=== PATIENT | female | born 1950 | race Caucasian/White ===

== ENCOUNTER 2023-09-21 14:43 | Emergency (ER) | payer MEDICARE, SELFPAY ==
[2023-09-21 14:54] VITALS: BP 183/100; PULSE 98; RESP 18; TEMP 37.1; O2SAT 96; BMI 32.2
[2023-09-21 15:37] LABS: Adenovirus NOT DETECTED (NOT DETECTE); Bordetella parapertussis NOT DETECTED (NOT DETECTE); Coronavirus 229E NOT DETECTED (NOT DETECTE); Coronavirus HKU1 NOT DETECTED (NOT DETECTE); Coronavirus NL63 NOT DETECTED (NOT DETECTE); Coronavirus OC43 NOT DETECTED (NOT DETECTE); Human Metapneumovirus NOT DETECTED (NOT DETECTE); Human Rhinovirus/Enterovirus NOT DETECTED (NOT DETECTE); Influenza A NOT DETECTED (NOT DETECTE); Influenza B NOT DETECTED (NOT DETECTE); Mycoplasma pneumoniae NOT DETECTED (NOT DETECTE); Parainfluenza Virus 1 NOT DETECTED (NOT DETECTE); Parainfluenza Virus 2 NOT DETECTED (NOT DETECTE); Parainfluenza Virus 3 NOT DETECTED (NOT DETECTE); Parainfluenza Virus 4 NOT DETECTED (NOT DETECTE); Respiratory Syncytial Virus NOT DETECTED (NOT DETECTE); SARS-CoV-2 NOT DETECTED (NOT DETECTE)
[2023-09-21 17:51] VITALS: PULSE 109; RESP 18; O2SAT 97
--- NOTE | 2023-09-21 18:08 | ED_ITS ---
HPI - URI/Sore Throat General Chief Complaint: Upper Respiratory Infection Stated Complaint: COUGH Source: patient History of Present Illness HPI Narrative: patient is a 73-year-old female presents to the Emergency Room with concerns of cough and congestion. Patient states she was seen at [facility] yesterday, chest x-ray repoort 09/20/23 shows no acute coronary pulmonary process. patient states she has had a similar productive cough for the past two weeks, symptoms worsening in the past week. She denies feeling short of breath, but states her ears feel full in her nose keeps running in her throat feels irritated. Patient denies recent fever. She appears in no distress and denies chest pain or dyspnea on exertion. Patient took Tylenol arthritis at 8:30 AM this morning but no medication this afternoon. Patient states she is ALLERGIC to honey and penicillins MD elicited complaint: Reports cough, rhinorrhea and nasal congestion Severity: mild Description of mucous: Reports clear and yellow Exacerbating factors: Reports nothing Relieving factors: Reports OTC cold medicine Associated symptoms: Reports rhinorrhea, nasal congestion and sore throat Treatments prior to arrival: Reports acetaminophen Related Data Previous Rx's Medication Instructions Recorded benzonatate 200 mg capsule 200 mg PO TID PRN cough #15 caps 09/21/23 doxycycline hyclate 100 mg capsule 100 mg PO BID 10 days #20 caps 09/21/23 Allergies Allergy/AdvReac Type Severity Reaction Status Date / Time honey Allergy Severe Verified 09/21/23 15:02 Penicillins Allergy Severe Verified 09/21/23 15:02 Review of Systems ROS Constitutional Denies: fever or chills Ears, nose, mouth, and throat Reports: throat pain, ear pain (fullness) and nasal congestion; Denies: throat swelling Cardiovascular Denies: chest pain Respiratory Reports: cough; Denies: shortness of breath Gastrointestinal Denies: abdominal pain or vomiting Genitourinary Denies: painful urination Integumentary/Breast Denies: rash Neurological Denies: headache Psychiatric Denies: anxiety Exam Narrative Exam Narrative: Nurses notes and vital signs reviewed and patient is not hypoxic. General: The patient appears well and in no apparent distress. Patient is resting comfortably on cart. Skin: Warm, dry, no pallor noted. Head: Normocephalic, atraumatic, no frontal or maxillary sinus tenderness Neck: Supple, trachea mid-line, no tenderness, no lymphadenopathy Eye: Pupils are equal, round and reactive to light, EOMI Ears, Nose, Mouth, and Throat: TM are clear, normal light reflex, positive pos tnasal drainage noted, oral mucosa is moist, no posterior oropharynx erythema or hypertrophy, uvula is mid-line, mild rhinorrhea Cardiovascular: Regular Rate and Rhythm Respiratory: Patient is in no distress, no accessory muscle use, lungs are clear to auscultation,slight expiratory wheeze, clears with cough. Chest Wall: no tenderness Back: non-tender, no CVA tenderness Musculoskeletal: normal ROM, no tenderness, no swelling Neurological: A&O x4 Psychiatric: Cooperative Constitutional Vital Signs, click to edit/add: Last Vital Signs Temp 98.7 F 09/21/23 14:54 Pulse 109 H 09/21/23 17:51 Resp 18 09/21/23 17:51 BP 183/100 H 09/21/23 14:54 Pulse Ox 97 09/21/23 17:51 O2 Del Method Room Air 09/21/23 14:54 Course Vital Signs Vital signs: Vital Signs Temperature 98.7 F 09/21/23 14:54 Pulse Rate 98 H 09/21/23 14:54 Respiratory Rate 18 09/21/23 14:54 Blood Pressure 183/100 H 09/21/23 14:54 Pulse Oximetry 96 09/21/23 14:54 Oxygen Delivery Method Room Air 09/21/23 14:54 Temperature 98.7 F 09/21/23 14:54 Pulse Rate 109 H 09/21/23 17:51 Respiratory Rate 18 09/21/23 17:51 Blood Pressure 183/100 H 09/21/23 14:54 Pulse Oximetry 97 09/21/23 17:51 Oxygen Delivery Method Room Air 09/21/23 14:54 MDM - URI/Sore Throat MDM Narrative Medical decision making narrative: discussed patient's presentation, respiratory panel here negative, cardiac chest x-ray 09/20/23 negative for infiltrate. We discussed slight expiratory wheeze that clears easily with cough and her upper respiratory symptoms for the past two weeks with progression over the past week. Discussed clinical indications for antibiotics given length of illness with symptoms not improving, we discussed removing any irritants. Patient encouraged to take an [id number] ALLERGY pill and Tylenol to help with symptoms. She is given her 1st dose of medication here. Patient had questions answered at the bedside and we discussed symptomatic treatment in addition to the antibiotic given her length of sympto ms. The patient is to followup with primary care physician in next 2-3 days or to return to the emergency department should any of the signs or symptoms worsen or new symptoms develop. Patient had questions answered. The patient agrees with the following Diagnosis and Treatment plan and the patient will be discharged home. Lab Data Labs: Lab Results 09/21/23 Range/Units 15:03 Adenovirus (PCR) Not detected (NOT DETECTE) C. pneumoniae DNA (PCR) Not detected (NOT DETECTE) Coronavirus Type OC43 Not detected (NOT DETECTE) Coronavirus Type HKU1 Not detected (NOT DETECTE) Coronavirus Type 229E Not detected (NOT DETECTE) Coronavirus Type NL63 Not detected (NOT DETECTE) Human Metapneumovir PCR Not detected (NOT DETECTE) M. pneumoniae (PCR) Not detected (NOT DETECTE) Parainfluenza PCR Not detected (NOT DETECTE) Parainfluenza 2 (PCR) Not detected (NOT DETECTE) Parainfluenza 3 (PCR) Not detected (NOT DETECTE) Parainfluenza 4 (PCR) Not detected (NOT DETECTE) RSV (RT-PCR) Not detected (NOT DETECTE) Entero/Rhino (PCR) Not detected (NOT DETECTE) SARS-CoV-2 (PCR) Not detected (NOT DETECTE) Bordetella pertussis (PCR) Not detected (NOT DETECTE) B parapertussis DNA PCR Not detected (NOT DETECTE) Influenza Type A (PCR) Not detected (NOT DETECTE) Influenza Type B (PCR) Not detected (NOT DETECTE) Discharge Plan Discharge Chief Complaint: Upper Respiratory Infection Clinical Impression: Upper respiratory infection, Bronchitis Patient Disposition: Home, Self-Care Time of Disposition Decision: 18:09 Condition: Good Prescriptions / Home Meds: New benzonatate 200 mg capsule 200 mg PO TID PRN (Reason: cough) Qty: 15 0RF doxycycline hyclate 100 mg capsule 100 mg PO BID 10 Days Qty: 20 0RF Instructions: Acute Bronchitis (ED) Referrals: Gloria Omalley [Primary Care Provider] - 1 week Discharge Date/Time: 09/21/23 17:31
[2023-09-21] MEDS: ACETAMINOPHEN 500 MG TABLET 1000 MG PO (18:27)
[2023-09-21] MEDS: DOXYCYCLINE MONOHYDRATE 100 MG CAPSULE PO (18:27)
== END 2023-09-21 18:36 | disposition home or self-care (01) ==
PROVIDERS: Emergency Provider Emergency Medicine; PCP Family Medicine
DX: J06.9 Acute upper respiratory infection, unspecified (principal); J40 Bronchitis, not specified as acute or chronic; Z20.822 Contact with and (suspected) exposure to COVID-19
CPT/HCPCS: 0202U; 99283

== ENCOUNTER 2023-10-31 11:40 | Emergency (ER) | payer MEDICARE, SELFPAY ==
--- OUTSIDE RECORDS SUMMARY | 2023-10-31 11:46 | XMS_ITS | CCD ---
Author Name Unknown Address [address] [place] [address] Organization [facility] Care Team Providers Care Fire Safety Manager Name Role Phone PHYSICIAN, DEFAULT Unavailable Unavailable PHYSICIAN, DEFAULT Unavailable Unavailable QUTEISH, VEEDA O Unavailable Unavailable JUAN CASEY Admitting UnavailJUAN Herrmann Attending Unavailabl e Suzie Kim Primary Care Unavailable Juan, Ceceilia Consulting Unavailable Juan, Ceceilia Consulting Unavailable Juan, Ceceilia Consulting Unavailable FARIDA GREENE Consulting Unavailable KUMARAMANDA WOODS Consulting Unavailabl e BV, Physician - Emergency Consulting Briseida Boateng Consulting Unavailable Drew Soriano Consulting Unavailable JUAN CASEY Attending Unavailabl Suzie Terry Primary Care Unavailable SUZIE KIM Consulting Unavailable JUAN CASEY Admitting UnavailJUAN Herrmann Attending Unavailabl e Suzie Kim Primary Care Unavailable KOKI MARQUEZ Consulting Unavailable BV, Physician - Emergency Consulting Briseida Boateng Consulting Unavailable Koki Marquez Consulting Unavailable Drew Soriano Consulting Unavailable JUAN CASEY Attending Unavailabl e Suzie Kim Primary Care Unavailable SUZIE KIM Consulting Unavailable Jeni Antonio Primary Care Provider NON, STAFF, Primary Care Provider UnavailKrishan Stacy Attending Provider [phone] Unavailable Primary Care Provider Unavailabl e Gloria Taylor DO Primary Care Provider Krishan Madrid Unavailable MAGEN, DR MOSS Primary Care Unavailable DICKSON, DR GARZA Admitting Unavailable DR KAYLA FORMAN Attending Unavailable MISC, DR MOSS Primary Care Unavailable TIMMIS, DR GARZA Admitting Unavailable TIMMIS, DR GARZA Attending Unavailable TIMMIS, DR GARZA Consulting Unavailable MISC, DR MOSS Primary Care Unavailable TIMMIS, DR GARZA Admitting Unavailable TIMMIS, DR GARZA Attending Unavailable HAY ., DR PERES Attending Unavailable RUMSCHLAG, GLORIA Primary Care Unavailable GRECHNY ., JUSTIN NIÑO Consulting Unavailbryson WORRELL ., DR PERES Admitting Unavailable PENDLETON, SUSAN Consulting Unavailable HANNAH SOLER Referring Unavailable RUMSCHLAG, GLORIA Primary Care Unavailable TIMMIS, KAYLA H Attending Unavailable OBRYCKI, BRUCE S Attending Unavailable OBRYCKI, BRUCE S Referring Unavailable RUMSCHLAG, GLORIA K Primary Care Unavailable RUMSCHLAG, GLORIA K Primary Care Unavailable CUMMINGS, HERMILO A Attending Unavailable RUMSCHLAG, GLORIA K Primary Care Unavailable KARCHNERJENI Attending Unavailable KARCHNERJENI Referring Unavailable RUMSCHLAG, GLORIA K Primary Care Unavailable CUMMINGS, HERMILO A Attending Unavailable CUMMINGS, HERMILO A Referring Unavailable RUMSCHLAG, GLORIA K Primary Care Unavailable RUMSCHLAG, GLORIA K Primary Care Unavailable OBRYCKI, BRUCE S Attending Unavailable Unavailable Unavailable Unavailable Allergies Allergy Classification Reported Allergen(s) Allergy Type Date of Onset Reaction(s) Facility Penicillins (antibiotic) (1 source) Penicillins Drug Allergy 3 Hives, Nausea And Vomiting [facility] (4 sources) Honey; Translations: [Unknown] Drug allergy (disorder) 0 [facility] (5 sources) Penicillins; Translations: [penicillins] Drug allergy (disorder) 9 Hives, Nausea And Vomiting [facility] (3 sources) Honey Propensity to adverse reactions to drug 3 [place], [place] (1 source) Penicillins Propensity to adverse reactions to drug 3 Hives, Nausea And Vomiting [place], [place] (1 source) Penicillin Drug Allergy Unknown [place] Other (1 source) PERFLUTREN LIPID MICROSPHERES; Translations: [PERFLUTREN LIPID MICROSPHERES] Propensity to adverse reactions to drug (disorder) [facility] Repository Medications Current Medications Medication Drug Class(es) Dates Sig (Normalized) Sig (Original) acetaminophen 500 mg oral tablet (3 sources) take 2 tablets by mouth every six hours as needed for pain acetaminophen (TYLENOL) 500 MG tablet Take 1,000 mg by mouth every 6 hours as needed for Pain. 0 Active aspirin 81 mg oral tablet (3 sources) Platelet Aggregation Inhibitor, Nonsteroidal Anti-inflammatory Drug take 1 tablet by mouth two times weekly aspirin 81 MG tablet Take 81 mg by mouth twice a week 0 Active calcium chloride 0.0014 meq/ml / potassium chloride 0.004 meq/ml / sodium chloride 0.103 meq/ml / sodium lactate 0.028 meq/ml injectable solution (1 source) Start: 04-03-2021 lactated ringers infusion calcium citrate 1500 mg / cholecalciferol 250 unt oral tablet (3 sources) Vitamin D calcium citrate-vitamin D (CITRICAL + D) 315-250 MG-UNIT TABS Take by mouth 0 Active carvedilol 25 mg oral tablet (1 source) alpha-Adrenergic Mook, beta-Adrenergic Mook Start: 03-15-2021 take 1 tablet by mouth twice daily carvedilol (COREG) 25 MG tablet TAKE 1 TABLET BY MOUTH TWICE DAILY 0 03/15/2021 Active ciprofloxacin 500 mg oral tablet (1 source) Quinolone Antimicrobial Start: 04-14-2022 take 1 tablet by mouth twice daily ciprofloxacin (CIPRO) 500 MG tablet TAKE 1 TABLET BY MOUTH TWICE DAILY FOR 7 DAYS 0 04/14/2022 Active dulaglutide (2 sources) GLP-1 Receptor Agonist Dulaglutide (TRULICITY SC) Inject into the skin 0 Active Dulaglutide ([place] LICITY SC) Inject into the skin 0 Suspended esomeprazole 20 mg granules for oral suspension (3 sources) Proton Pump Inhibitor take 20 mg by mouth once daily as needed esomeprazole Magnesium (NEXIUM) 20 MG PACK Take 20 mg by mouth daily as needed 0 Active glyBURIDE 5 mg oral tablet (2 sources) Sulfonylurea Start: glyBURIDE (DIABETA) 5 MG tablet hydrocortisone 10 mg/ml topical cream (1 source) Corticosteroid Start: hydrocortisone 1 % cream Apply to affected area 2 times daily 0 05/19/2021 Active ibuprofen 800 mg oral tablet (3 sources) Nonsteroidal Anti-inflammatory Drug take 1 tablet by mouth every eight hours as needed for pain ibuprofen (ADVIL;MOTRIN) 800 MG tablet Take 800 mg by mouth every 8 hours as needed for Pain 0 Active lisinopril 40 mg oral tablet (4 sources) Angiotensin Converting Enzyme Inhibitor take 1 tablet by mouth every twenty-four hours Lisinopril 40 MG 1 tablet Orally Once a day Active take 2 tablets by mouth once wyatt [address] lisinopril (PRINIVIL;ZESTRIL) 20 MG tablet Take 40 mg by mouth daily 0 Active metFORMIN hydrochloride 500 mg oral tablet (4 sources) Biguanide take 1 tablet by mouth every twelve hours metFORMIN HCl 500 MG 1 tablet with meals Orally Twice a day Active mupirocin 20 mg/ml topical cream (1 source) RNA Synthetase Inhibitor Antibacterial Start: mupirocin (BACTROBAN) 2 % cream Apply topically 3 times daily 0 08/09/2021 Active 3 ml sodium chloride 9 mg/ml injection (2 sources) Start: sodium chloride flush 0.9 % injection 5-40 mL sucralfate 100 mg/ml oral suspension (2 sources) Aluminum Complex Start: take 1 tablet by mouth four times daily sucralfate (CARAFATE) 1 GM/10ML suspension Take 10 mLs by mouth 4 times daily Substitute 1 g Carafate tablets and instruct patient how to create slurry at home, if financially advantageous to patient. 420 mL 1 04/03/2021 Active sulfamethoxazole 800 mg / trimethoprim 160 mg oral tablet (1 source) Dihydrofolate Reductase Inhibitor Antibacterial, Sulfonamide Antimicrobial Start: take 1 tablet by mouth twice daily at bedtime sulfamethoxazole-tr imethoprim (BACTRIM DS;SEPTRA DS) 800-160 MG per tablet TAKE 1 TABLET BY MOUTH TWICE DAILY FOR 5 DAYS (MORNING AND BEFORE BEDTIME) 0 12/24/2021 Active Problems Active Problems Problem Classification Problem Date Documented Da te Episodic/Chronic Abdominal hernia (1 source) Diaphragmatic hernia without obstruction or gangrene; Translations: [DIAPH HERNIA W/O OBST/GANGRENE] Onset: 3 Episodic Abdominal pain (1 source) Abdominal pain; Translations: [Unspecified abdominal pain] Episodic Diabetes mellitus without complication (4 sources) Diabetes mellitus; Translations: [Type 2 diabetes mellitus] Onset: 8 04-04-2020 Chronic Disorders of lipid metabolism (4 sources) Hyperlipidemia; Translations: [Hyperlipidemia, unspecified] Onset: 8 04-04-2020 Chronic E Codes: Fall (1 source) Fall Onset: 4 Esophageal disorders (3 sources) Gastroesophageal reflux disease; Translations: [Gastro-esophageal reflux disease without esophagitis] Onset: 1 Chronic Essential hypertension (3 sources) Hypertensive disorder; Translations: [Essential (primary) hypertension] Onset: 3 Chronic Genitourinary symptoms and ill-defined conditions (1 source) Mixed incontinence; Translations: [Mixed incontinence] Onset: 3 Chronic Genitourinary symptoms and ill-defined conditions (2 sources) Frequency of micturition; Translations: [Urgency of urination] Onset: 3 Episodic Heart valve disorders (1 source) Irregular heart beat Onset: 3 Episodic Osteoarthritis (3 sources) Osteoarthritis of right knee joint; Translations: [Unilateral primary osteoarthritis, right knee] Onset: 3 04-04-2020 Chronic Osteoarthritis (1 source) Osteoarthritis of right knee joint; Translations: [Osteoarthritis of right knee] Onset: 3 Osteoporosis (3 sources) Senile osteoporosis; Translations: [Age-related osteoporosis without current pathological fracture] Onset: 9 04-04-2020 Chronic Other acquired deformities (1 source) Lumbar spondylolisthesis; Translations: [Spondylolisthesis, lumbar region] Episodic Other aftercare (1 source) care home (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 hypoglycemic drugs; Translations: [JAIL USE ORAL HYPOGLYCEMIC DX] Onset: 3 Episodic Other aftercare (1 source) Other jail (current) drug therapy; Translations: [OTH HEALTH AND SAFETY ADVISOR CURRENT DRUG THERAPY] Onset: 3 Episodic Other and unspecified benign neoplasm (1 source) History of polyp of colon; Translations: [Personal history of colonic polyps] Episodic Other connective tissue disease (1 source) Presence of left artificial knee joint; Translations: [PRESENCE LEFT ARTIFICIAL KNEE JOINT] Onset: 3 Chronic Other connective tissue disease (1 source) Fibromyalgia; Translations: [FIBROMYALGIA] Onset: 3 Episodic Other gastrointestinal disorders (4 sources) Dysphagia; Translations: [Dysphagia, unspecified] Onset: 4 03-15-2015 Episodic Other gastrointestinal disorders (1 source) Pain associated with defecation; Translations: [Other specified symptoms and signs involving the digestive system and abdomen] Episodic Other nutritional; endocrine; and metabolic disorders (1 source) Morbid obesity; Translations: [Obesity, Class III, BMI 40-49.9 (morbid obesity)] Onset: 3 Chronic Other nutritional; endocrine; and metabolic disorders (2 sources) Severe obesity; Translations: [Morbid (severe) obesity due to excess calories] Onset: 3 04-04-2020 Chronic Other upper respiratory disease (1 source) Nasal congestion; Translations: [Nasal congestion] Onset: 3 Episodic Residual codes; unclassified (4 sources) Obstructive sleep apnea (adult) (pediatric); Translations: [OBSTRUCTIVE SLEEP APNEA] Onset: 2 Chronic Residual codes; unclassified (1 source) Acquired absence of other specified parts of digestive tract; Translations: [ACQ ABSENCE OTH PART DIGESTV TRACT] Onset: 3 Episodic Schizophrenia and other psychotic disorders (1 source) Schizophrenia, unspecified; Translations: [SCHIZOPHRENIA UNSPECIFIED] Onset: 3 Chronic Spondylosis; intervertebral disc disorders; other back problems (6 sources) Spinal stenosis of lumbar region; Translations: [Spinal stenosis, lumbar region with neurogenic claudication] Onset: 2 Resolved: 2 Episodic Superficial injury; contusion (4 sources) Contusion of right front wall of thorax, initial encounter; Translations: [Contusion of right back wall of thorax, initial encounter] Onset: 3 Episodic Unclassified (2 sources) Patient encounter status; Translations: [Encounter for well woman exam with routine gynecological exam] Onset: 3 07-19-2013 Unclassified (1 source) HEALTH AND SAFETY ADVISOR INJECT NONINSULN ANTIDIAB; Translations: [JAIL INJECT NONINSULN ANTIDIAB] Onset: 3 Unclassified (1 source) Cold Like Symptoms Onset: 3 Past or Other Problems Problem Classification Problem Date Documented Da te Episodic/Chronic Cardiac dysrhythmias (2 sources) Tachyarrhythmia ; Translations: [Tachycardia, unspecified] Onset: 8 04-04-2020 Episodic Inflammatory diseases of female pelvic organs (2 sources) Acute vaginitis; Translations: [Acute vaginitis] Onset: 0 04-04-2020 Episodic Other acquired deformities (1 source) Spondylolisthesis, lumbar region Onset: 2 Resolved: 2 Episodic Other gastrointestinal disorders (3 sources) Alteration in bowel elimination; Translations: [Change in bowel habit] Onset: 4 03-15-2015 Episodic Other nutritional; endocrine; and metabolic disorders (3 sources) Obesity; Translations: [Obesity, unspecified] Onset: 3 Resolved: 3 Chronic Residual codes; unclassified (1 source) History of operative procedure on knee; Translations: [S/P right unicompartmental knee replacement] Onset: 3 Episodic Residual codes; unclassified (2 sources) Acquired absence of cervix and uterus; Translations: [Acquired absence of both cervix and uterus] Onset: 0 04-04-2020 Episodic Residual codes; unclassified (2 sources) Disorder of digestive tract; Translations: [Acquired absence of other specified parts of digestive tract] Onset: 0 04-04-2020 Episodic Results Test Name Value Interpretation Reference Range Facility XR RIBS RT 3 VWS W PA CHESTo n 10-26-2023 XR RIBS RT 3 VWS W PA CHEST XR RIBS RT 3 VWS W PA CHEST Indication: Fall pain TECHNIQUE: Frontal view of the chest is obtained. Frontal and frontal oblique views of right ribs are obtained. Comparison is made to prior chest x-ray dated 09/24/2023. FINDINGS: Mild Left lower lobe atelectasis is present. Heart and mediastinum are within normal limits. Focal consolidation, pleural effusion, or pneumothorax are not seen. Images of right ribs show no displaced fracture. IMPRESSION: 1. Minimal new left lower lobe atelectasis. 2. No displaced right rib fracture seen. 38 Finalized by Janet Alvarenga MD on 10/26/2023 11:55 AM [facility] XR SPINE LUMBAR 2 OR 3 VWSon 10-26-2023 XR SPINE LUMBAR 2 OR 3 VWS XR SPINE LUMB AR 2 OR 3 VWS XR SPINE LUMBAR 2 OR 3 VWS 10/26/2023 11:51 AM INDICATION: fall , back pain COMPARISON: Lumbar spine 08/14/2023 TECHNIQUE: AP, lateral, and coned-down lateral views of the lumbosacral spine were obtained Findings: 5 nonrib-bearing lumbar-type vertebral bodies. Vertebral body heights are maintained. Unchanged Grade 1 anterolisthesis of L4 on L5. Mild multilevel degenerative changes in the lumbar spine. Left hip prosthesis. IMPRESSION: Similar degenerative changes in the lumbar spine. No acute osseous abnormality. 99 Finalized by Melvin Mosley MD on 10/26/2023 11:56 AM Normal [facility] XR SPINE THORACIC 2 VWSon XR SPINE THORACIC 2 VWS XR SPINE THORACI C 2 VWS XR SPINE THORACIC 2 VWS HISTORY: Back pain status post fall COMPARISON: 08/14/2023, 09/08/2023. FINDINGS: Mildly exaggerated thoracic kyphosis, similar to prior examination. Vertebral body heights and intervertebral disc spaces appear maintained throughout. Multilevel anterior disc osteophyte complexes more prominent in the mid-lower thoracic spine, similar to prior examination. No acute fracture or wedge compression deformity identified. The cervicothoracic junction is not well evaluated on the lateral view secondary to overlying structures. IMPRESSION: * No acute osseous abnormality of the thoracic spine by radiograph. Approved by Resident: Kain Bishop MD on 10/26/2023 11:53 AM IMichael MD have personally reviewed the image(s) and agree with and/or edited the report 04 Finalized by Michael Borjas MD on 10/26/2023 12:00 PM Normal [facility] XR FACIAL BONES MIN 3 VWSon 09-28-2023 XR FACIAL BONES MIN 3 VWS XR FACIAL BONE S MIN 3 VWS XR FACIAL BONES MIN 3 VWS 09/28/2023 8:19 AM INDICATION: fall 2-3 days ago, neuro intact, pain over nasal portion of L frontal bone superior to eye brow COMPARISON: None TECHNIQUE: 4 views of the facial bones were obtained IMPRESSION: 1. No nasal bone fracture. Facial bones appear grossly intact. If there is persistent clinical concern for facial bone fracture, consider maxillofacial CT. 2. Air-fluid level in the left maxillary sinus suggestive of sinus disease. 99 Finalized by Melvin Mosley MD on 09/28/2023 8:37 AM Normal [facility] BASIC METABOLIC PANLon 09-24 Anion gap [Moles/Vol] 9 mmol/L Normal 5-15 [facility] Comment on above: Performed By: #### B CHEYENNE PHILLIPS, 86817-1 #### [facility] ([id number]) [address] [place] [address] 60304 Calcium [Mass/Vol] 9.3 mg/dL Normal 8.5-10.5 [facility] Comment on above: Performed By: #### B JERRI PHILLIPSA, 22948-9 #### [facility] ([id number]) [address] [place] [address] 95693 Chloride [Moles/Vol] 102 mmol/L Normal 98-109 [facility] Comment on above: Performed By: #### B JERRI PHILLIPSA, 68617-5 #### [facility] ([id number]) [address] [place] [address] 65098 CO2 [Moles/Vol] 26 mmol/L Normal 22-32 [facility] Comment on above: Performed By: #### B CHEYENNE PHILLIPS, 62766-3 #### [facility] ([id number]) [address] [place] [address] 06587 Creatinine [Mass/Vol] 0.64 mg/dL Normal 0.40-1.00 [facility] Comment on above: Result Comment: METH OD TRACEABLE TO IDMS STANDARD Performed By: #### B CHEYENNE PHILLIPS, 48191-9 #### [facility] ([id number]) [address] [place] [address] 11602 eGFR (CKD-EPI) NON-RACE DEPENDENT >90 Normal >59 [facility] Comment on above: Result Comment: Reported eGFR is based on the CKD-EPI 2020 equation that does not use a race coefficient. Performed By: #### B CHEYENNE PHILLIPS, 36505-9 #### [facility] ([id number]) [address] [place] [address] 49653 Glucose [Mass/Vol] 202 mg/dL High 65-99 [facility] Comment on above: Performed By: #### B CHEYENNE PHILLIPS, 64509-0 #### [facility] ([id number]) [address] [place] [address] 82718 Potassium [Moles/Vol] 3.8 mmol/L Normal 3.5-5.0 [facility] Comment on above: Performed By: #### B JERRI PHILLIPSA, 61135-8 #### [facility] ([id number]) [address] [place] [address] 76293 Sodium [Moles/Vol] 137 mmol/L Normal 134-146 [facility] Comment on above: Performed By: #### B JERRI PHILLIPSA, 13556-6 #### [facility] ([id number]) [address] [place] [address] 24792 Urea nitrogen [Mass/Vol] 13 mg/dL Normal 5-27 [facility] Comment on above: Performed By: #### B JERRI PHILLIPSA, 94159-9 #### [facility] ([id number]) [address] [place] [address] 64713 CBC AND AUTO DIFFon 12-20-20 23 ABSOLUTE BASOPHIL 0.1 X10E9/L Normal 0.0-0.2 [facility] Comment on above: Performed By: #### B ALAN CBCA, 74698-3 #### [facility] ([id number]) [address] [place] [address] 76170 ABSOLUTE NEUTROPHIL 3.7 X10E9/L Normal 1.5-6.6 [facility] Comment on above: Performed By: #### B MP, CBCA, 38138-7 #### [facility] ([id number]) [address] [place] [address] 80786 Basophils/100 WBC (Bld) 1.2 % Normal [facility] Comment on above: Performed By: #### B MP, CBCA, 83498-5 #### [facility] ([id number]) [address] [place] [address] 97578 Eosinophils (Bld) [#/Vol] 0.4 10*3/uL Normal 0.0-0.4 [facility] Comment on above: Performed By: #### B MP, CBCA, 68806-4 #### [facility] ([id number]) [address] [place] [address] 49101 Eosinophils/100 WBC (Bld) 6.7 % Normal [facility] Comment on above: Performed By: #### B MP, CBCA, 65354-8 #### [facility] ([id number]) [address] [place] [address] 73491 Erythrocyte distribution wid th (RBC) [Ratio] 13.7 % Normal 11.5-15.0 [facility] Comment on above: Performed By: #### B ALAN, CBCA, 68481-4 #### [facility] ([id number]) [address] [place] [address] 04033 Hematocrit (Bld) [Volume fraction] 39.1 % Normal 35-47 [facility] Comment on above: Performed By: #### B MP, CBCA, 81729-6 #### [facility] ([id number]) [address] [place] [address] 63010 Hemoglobin (Bld) [Mass/Vol] 12.9 g/dL Normal 11.7-15. 5 [facility] Comment on above: Performed By: #### B MP, CBCA, 24868-2 #### [facility] ([id number]) [address] [place] [address] 19975 Lymphocytes (Bld) [#/Vol] 1.4 10*3/uL Normal 1.0-3.5 [facility] Comment on above: Performed By: #### B MP, CBCA, 62536-5 #### [facility] ([id number]) [address] [place] [address] 67721 Lymphocytes/100 WBC (Bld) 22.9 % Normal [facility] Comment on above: Performed By: #### B MP, CBCA, 22136-0 #### [facility] ([id number]) [address] [place] [address] 57831 MCH (RBC) [Entitic mass] 28.4 pg Normal 27-34 [facility] Comment on above: Performed By: #### B ALAN, CBCA, 57511-4 #### [facility] ([id number]) [address] [place] [address] 51895 MCHC (RBC) [Mass/Vol] 33.0 g/dL Normal 32-36 [facility] Comment on above: Performed By: #### B ALAN, CBCA, 52045-9 #### [facility] ([id number]) [address] [place] [address] 27192 MCV (RBC) [Entitic vol] 86 fL Normal 80-100 [facility] Comment on above: Performed By: #### B MP, CBCA, 45224-1 #### [facility] ([id number]) [address] [place] [address] 84116 Monocytes (Bld) [#/Vol] 0.6 10*3/uL Normal 0-0.9 [facility] Comment on above: Performed By: #### B ALAN, CBCA, 72956-3 #### [facility] ([id number]) [address] [place] [address] 92653 Monocytes/100 WBC (Bld) 9.8 % Normal [facility] Comment on above: Performed By: #### B MP, CBCA, 81564-8 #### [facility] ([id number]) [address] [place] [address] 27278 Neutrophils/100 WBC (Bld) 59.4 % Normal [facility] Comment on above: Performed By: #### B MP, CBCA, 81992-9 #### [facility] ([id number]) [address] [place] [address] 73755 Platelet mean volume (Bld) [Entitic vol] 8.4 fL Normal 7-12 [facility] Comment on above: Performed By: #### B MP, CBCA, 55823-2 #### [facility] ([id number]) [address] [place] [address] 74715 Platelets (Bld) [#/Vol] 219 10*3/uL Normal 150-450 [facility] Comment on above: Performed By: #### B MP, CBCA, 80819-8 #### [facility] ([id number]) [address] [place] [address] 14346 RBC COUNT 4.53 X10E12/L Normal 3.80-5.20 [facility] Comment on above: Performed By: #### B MP, CBCA, 75345-1 #### [facility] ([id number]) [address] [place] [address] 47459 WBC (Bld) [#/Vol] 6.2 10*3/uL Normal 4.0-11.0 [facility] Comment on above: Performed By: #### B MP, CBCA, 83489-7 #### [facility] ([id number]) [address] [place] [address] 30466 SARS/FLU A+B/RSV by NAAT/Mol [facility] 09-24-2023 SARS/FLU A+B/RSV by NAAT/Molecular FLU A PCR Negative (qualifier value) FLU B PCR Negative (qualifier value) RSV by PCR Negative (qualifier value) SARS CoV 2 Not detected (qualifier value) NOTE The Xpert Xpress SARS-CoV-2/Flu/RSV Plus test is a rapid, multiplexed real-time RT-PCR test intended for the simultaneous qualitative detection and differentiation of SARS-CoV-2, influenza A, influenza B and respiratory syncytial virus (RSV) viral RNA from individuals suspected of respiratory viral infection consistent with COVID-19 by their healthcare provider. This test has not been validated in asymptomatic patients. The Xpert Xpress SARS-CoV-2 test is intended for use by qualified and trained operators who are performing tests using either Ask The Doctor DX or Tr[employer]Out systems and is limited to laboratories that meet the CLIA requirements to perform high and moderate complexity tests. The Xpert Xpress SARS-CoV-2/Flu/RSV Plus is only for use under the Food and Drug Administration's Emergency Use Authorization. Results are for the simultaneous detection and differentiation of SARS-CoV-2, influenza A, influenza B and RSV nucleic acids in clinical specimens. SARS-CoV-2, influenza A, influenza B and RSV RNA identified by this test are generally detectable in upper respiratory samples during the acute phase of infection. Positive results are indicative of the presence of the identified virus, but do not rule out bacterial infection or co-infection with other pathogens not detected by this test. Clinical correlation with patient history and other diagnostic information is necessary to determine patient infection status. The agent detected may not be the definite cause of disease. Negative results do not preclude SARS-CoV-2, influenza A, influenza B and RSV infection and should not be used as the sole basis for treatment or other patient management decisions. Negative results must be combined with clinical observations, patient history and epidemiological information. An Invalid result may occur with specimen-associate d inhibition unable to be resolved with specimen repeat. Fact Sheet for Healthcare Providers: https://www.fda.go v/media/058654/maci nload Fact Sheet for Patients: https://www.fda.go v/media/643851/maci nload [facility] Comment on above: Performed By: #### C OVFLR #### [facility] ([id number]) [address] [place] [address] TROPONIN Ion 09-24-2023 Troponin I.cardiac [Mass/Vol] ng/mL Normal 0.00-0 .04 [facility] Comment on above: Performed By: #### B MP, CBCA, 21167-8 #### [facility] ([id number]) [address] [place] [address] XR CHEST 2 VWSon 09-24-2023 XR CHEST 2 VWS XR CHEST 2 VWS XR CHEST 2 VWS 09/24/2023 9:16 AM INDICATION: persistent cough COMPARISON: Multiple priors dating back to 12/07/2021 TECHNIQUE: PA and lateral views of the chest were obtained. FINDINGS: The lungs are clear. There is no pneumothorax. There is no pleural effusion. The cardiomediastinal silhouette is unremarkable. No acute osseous abnormalities. IMPRESSION: No acute cardiopulmonary process. 41 Finalized by Thomas Shrestha on 09/24/2023 9:20 AM Normal [facility] Cult,Urineon 05-16-2023 Cult,Urine Specimen Description .CLEAN CATCH URINE Culture NO SIGNIFICANT GROWTH Report Status FINAL 05/16/2023 Normal [facility] Comment on above: Performed By: #### U RC #### [id number] [place] [address] [employer] Mill Tender: Dallas Burton MD [facility] [address] [place] [address] [employer] Tender: Bennie Odonnell MD Urinalysis w/ Microon 2022 Bilirubin, SemiQt,Ur Negative Normal NEG [facility] Comment on above: Performed By: #### U AMIC #### [facility] [address] [place] [address] [employer] Tender: Bennie Odonnell MD Blood, Urine Negative Normal NEG [facility] Comment on above: Performed By: #### U AMIC #### [facility] [address] [place], [place] [id number] [employer] Tender: Bennie Odonnell MD Clarity (U) Clear Normal CLEAR [facility] Comment on above: Performed By: #### U AMIC #### [facility] [address] [place], [place] [id number] [employer]: Bennie Odonnell MD Color (U) Yellow Normal YEL [facility] Comment on above: Performed By: #### U AMIC #### [facility] [address] [place], [place] [id number] [employer]: Bennie Odonnell MD Epithelial cells LM Ql (Urin e sed) 2 TO 5 Normal 0-25 [facility] Comment on above: Performed By: #### U AMIC #### [facility] [address] [place], [place] [id number] [employer]: Bennie Odonnell MD Glucose Ql (U) Negative Normal NEG [facility] Comment on above: Performed By: #### U AMIC #### [facility] [address] [place], [place] [id number] [employer]: Bennie Odonnell MD Ketones Ql (U) Negative Normal NEG [facility] Comment on above: Performed By: #### U AMIC #### [facility] [address] [place], [facility] [employer]: Bennie Odonnell MD Leukocyte esterase Test stri p Ql (U) Negative Normal NEG [facility] Comment on above: Performed By: #### U AMIC #### [facility] [address] [place], [place] [id number] [employer]: Bennie Odonnell MD Nitrite,Ur Negative Normal NEG [facility] Comment on above: Performed By: #### U AMIC #### [facility] [address] [place], [place] [id number] [employer]: Bennie Odonnell MD PH,Ur 5.5 Normal 5.0-9.0 [facility] Comment on above: Performed By: #### U AMIC #### [facility] [address] [place], [place] [phone] [employer] Tender: Bennie Odonnell MD Protein Ql (U) Negative Normal NEG [facility] Comment on above: Performed By: #### U AMIC #### [facility] [address] [place] [address] [employer]: Bennie Odonnell MD Spec. Clark,Ur 1.025 High 1.010-1.02 0 [facility] Comment on above: Performed By: #### U AMIC #### [facility] [address] [place], [place] [phone] [employer]: Bennie Odonnell MD Urine RBC's 0 TO 2 Normal 0-2 [facility] Comment on above: Performed By: #### U AMIC #### [facility] [address] [place] [address] [employer] T[employer]: Bennie Odonnell MD Urine WBC's 0 TO 2 Normal 0-5 [facility] Comment on above: Performed By: #### U AMIC #### [facility] [address] [place], [place] [phone] [employer]: Bennie Odonnell MD Urobilinogen,Ur Normal Normal 0.0-1.0 [facility] Comment on above: Performed By: #### U AMIC #### [facility] [address] [place], [place] [phone] [employer]ender: Bennie Odonnell MD CBC AUTO DIFFon 01-05-2023 BASO # 0.0 103/ul Normal 0.0-0.1 [facility] Comment on above: Performed By: #### C BC #### [facility] [address] [place] [address] Dr. Traci Cerna Basophils/100 WBC (Bld) 0.7 % Normal 0.2-2.0 [facility] Comment on above: Performed By: #### C BC #### [facility] [address] [place] [address] Dr. Traci Cerna EO # 0.2 103/ul Normal 0.0-0.7 [facility] Comment on above: Performed By: #### C BC #### [facility] [address] [place] [address] Dr. Traci Cerna Eosinophils/100 WBC (Bld) 3.5 % Normal 0.9-7.0 [facility] Comment on above: Performed By: #### C BC #### [facility] [address] [place] [address] Dr. Traci Cerna Erythrocyte distribution wid th (RBC) [Ratio] 13.6 % Normal 11.0-15.0 [facility] Comment on above: Performed By: #### C BC #### [facility] [address] [place] [address] Dr. Traci Cerna Hematocrit (Bld) [Volume fraction] 38.9 % Normal 36.0-48.0 [facility] Comment on above: Performed By: #### C BC #### [facility] [address] [place] [address] Dr. Traci Cerna Hemoglobin (Bld) [Mass/Vol] 12.8 g/dL Normal 12.0-16. 0 [facility] Comment on above: Performed By: #### C BC #### [facility] [address] [place] [address] Dr. Traci Cerna IG # 0.01 10e3/ul Normal 0.00-0.03 [facility] Comment on above: Performed By: #### C BC #### [facility] [address] [place] [address] Dr. Traci Cerna IG % 0.2 % Normal 0.0-0.5 [facility] Comment on above: Performed By: #### C BC #### [facility] [address] [place] [address] Dr. Traci Cerna LYMPH # 2.0 103/ul Normal 1.2-3.8 [facility] Comment on above: Performed By: #### C BC #### [facility] [address] [place] [address] Dr. Traci Cerna Lymphocytes/100 WBC (Bld) 37.8 % Normal 20.5-60.0 [facility] Comment on above: Performed By: #### C BC #### [facility] [address] [place] [address] Dr. Traci Cerna MANUAL DIFF REQ NO Normal [facility] Comment on above: Performed By: #### C BC #### [facility] [address] [place] [address] Dr. Traci Cerna MCH (RBC) [Entitic mass] 28.6 pg Normal 26.7-34.0 [facility] Comment on above: Performed By: #### C BC #### [facility] [address] [place] [address] Dr. Traci Cerna MCHC (RBC) [Mass/Vol] 32.9 g/dL Normal 29.9-35.2 [facility] Comment on above: Performed By: #### C BC #### [facility] [address] [place] [address] Dr. Traci Cerna MCV (RBC) [Entitic vol] 86.8 fL Normal 81.0-99.0 [facility] Comment on above: Performed By: #### C BC #### [facility] [address] [place] [address] Dr. Traci Cerna MONO # 0.6 103/ul Normal 0.3-0.8 [facility] Comment on above: Performed By: #### C BC #### [facility] [address] [place] [address] Dr. Traci Cerna Monocytes/100 WBC (Bld) 10.8 % Normal 1.7-12.0 [facility] Comment on above: Performed By: #### C BC #### [facility] [address] [place] [address] Dr. Traci Cerna NEUT # 2.5 103/ul Normal 1.4-6.5 [facility] Comment on above: Performed By: #### C BC #### [facility] [address] [address] [address] Traci Cerna Neutrophils/100 WBC (Bld) 47.0 % Normal 43.0-75.0 [facility] Comment on above: Performed By: #### C BC #### [facility] [address] [address] [address] Traci Cerna Platelet mean volume (Bld) [Entitic vol] 9.9 fL Normal 9.5-13.5 [facility] Comment on above: Performed By: #### C BC #### [facility] [address] [address] [address] Traci Cerna PLT 218 103/ul Normal 150-450 [facility] Comment on above: Performed By: #### C BC #### [facility] [address] [address] [address] Traci Cerna RBC 4.48 106/ul Normal 4.20-5.40 [facility] Comment on above: Performed By: #### C BC #### [facility] [id number] Traci Cerna WBC 5.4 103/ul Normal 4.0-11.0 [facility] Comment on above: Performed By: #### C BC #### [facility] [address] [place], [place] [phone] Dr. Traci Cerna CT NECK ST WO CONon 01-06-20 CT NECK WO CON CT SOFT TISSUE NECK WITHOUT IV CONTRAST. INDICATION: Neck pain COMPARISON: TECHNIQUE: CT soft tissue neck without IV contrast. Sagittal and coronal reformats were obtained. FINDINGS: INTRACRANIAL CONTENTS: No mass or hemorrhage. PARANASAL SINUSES: Paranasal sinuses are clear. SALIVARY GLANDS: Normal. SUBCUTANEOUS/SOFT TISSUES: No acute abnormality. MASTOID AIR CELLS: Clear. EXTERNAL/MIDDLE AIR CAVITIES: Clear.l ORAL CAVITY: No periapical lucency. No inflammation or abscess. MUCOSA: No mass.. No fluid collection or inflammation. Normal epiglottis and nasopharyngeal adenoids. PARAPHARYNGEAL/RET ROPHARYNGEAL SPACES: Clear. No inflammation or fluid collection. LYMPH NODES: No enlarged cervical lymph nodes by CT criteria. THYROID: No mass. UPPER LUNGS: Clear. MUSCULOSKELETAL: No acute osseous abnormality.. IMPRESSION: No soft tissue inflammation, fluid collection or discrete neck mass. Electronically authenticated by: SUSAN PENDLETON Date: 2023-01-05 20:31 Normal [facility] PROF CHEM 8 (BAS METB)on Anion gap [Moles/Vol] 12.3 mmol/L Normal [facility] Comment on above: Performed By: #### T SH, BMP #### [facility] [address] [place] [address] Dr. Traci Cerna Calcium [Mass/Vol] 9.4 mg/dL Normal 8.5-10.1 [facility] Comment on above: Performed By: #### T SH, BMP #### [facility] [address] [place] [address] Dr. Traci Cerna Chloride [Moles/Vol] 105 mmol/L Normal 98-107 [facility] Comment on above: Performed By: #### T SH, BMP #### [facility] [address] [place] [address] Dr. Traci Cerna CO2 [Moles/Vol] 29.0 mmol/L Normal 21.0-32.0 [facility] Comment on above: Performed By: #### T SH, BMP #### [facility] [address] [place] [address] Dr. Traci Cerna Creatinine [Mass/Vol] 0.78 mg/dL Normal 0.55-1.02 [facility] Comment on above: Performed By: #### T SH, BMP #### [facility] [address] [place] [address] Dr. Traci Cerna EGFR-AF MALDIVIAN >60 Normal >=60 [facility] Comment on above: Performed By: #### T SH, BMP #### [facility] [address] [place] [address] Dr. Traci Cerna EGFR-NON AF MALDIVIAN >60 Normal >=60 [facility] Comment on above: Performed By: #### T SH, BMP #### [facility] [address] [address] [address] Traci Cerna Glucose [Mass/Vol] 178 mg/dL Critically high 74-106 [facility] Comment on above: Performed By: #### T SH, BMP #### [facility] [address] [place] [address] Dr. Traci Cerna Potassium [Moles/Vol] 4.3 mmol/L Normal 3.5-5.1 [facility] Comment on above: Performed By: #### T SH, BMP #### [facility] [address] [place] [address] Dr. Traci Cerna Sodium [Moles/Vol] 142 mmol/L Normal 136-145 [facility] Comment on above: Performed By: #### T EMMA, BMP #### [facility] [address] [place] [address] Dr. Traci Cerna Urea nitrogen [Mass/Vol] 21.0 mg/dL Critically high 7.0-18 .0 [facility] Comment on above: Performed By: #### T EMMA, BMP #### [facility] [address] [place] [address] Dr. Traci Cerna Urea nitrogen/Creatinine [Ma ss ratio] 26.9 mg/mg Normal [facility] Comment on above: Performed By: #### T EMMA, BMP #### [facility] [address] [place] [address] Dr. Traci Cerna TSHon 01-05-2023 TSH 0.650 uIU/mL Normal 0.358-3.74 0 [facility] Comment on above: Performed By: #### T EMMA, BMP #### [facility] [address] [place] [address] Dr. Traci Cerna US Thyroidon 12-30-2022 US Thyroid CLINICAL HISTORY: Enlarged thyroid on physical exam. COMPARISON: None available. TECHNIQUE: Ultrasound of the thyroid was performed with a regional survey. Reference: ACR Thyroid, Imaging Recording and Data System (TI-RADS): White paper of the ACR TI-RADS committee. Journal of the [place]: Volume 14, issue 5, February 19 pages 587-595. FINDINGS: The study is somewhat limited by the patient's body habitus. The thyroid gland is mildly small in size and heterogeneous and echogenicity, with expected vascularity. Numerous predominantly less than 1 cm nodules are noted throughout both thyroid lobes. The largest and most suspicious is almost completely solid, hypoechoic, taller than wide, smoothly marginated without echogenic foci (TR 5 mm) noted within the lateral aspect of the mid right thyroid lobe measuring approximately 1.2 x 1.1 x 1.0 cm, for a volume of 0.63 mL. FNA is suggested. The others are TR 4 and TR 3 in appearance and measure up to approximately 7.5 mm, which do not require FNA or longitudinal ultrasound follow-up. The right lobe measures approximately 3.2 x 2.2 x 1.6 cm, for a volume of approximately 6.0 mL. The left thyroid lobe measures approximately 3.3 x 1.7 x 1.3 cm, for a volume of approximately 4.0 mL. The isthmus measures approximately 3 mm in thickness. IMPRESSION: APPROXIMATELY 1.2 CM TR 5 MID RIGHT THYROID LOBE NODULE. FNA SUGGESTED. NUMEROUS OTHER SMALLER LESS SUSPICIOUS NODULES ELSEWHERE. Report reported and signed by Mac Dai on 01/01/2023 0924 Normal [facility] Specialist Colonoscopy studyOrdered By: Jairo Fisher on 04-03-2021 No dictation [facility] Phone: [facility] Phone: EsophagogastroduodenoscopyOr dered By: Jairo Fisher on 04-03-2021 No dictation [facility] Phone: [facility] Phone: .UA Microscp Aon 07-15-2019 UA Mucus Present Abnormal Absent [facility] Comment on above: Performed By: #### E GFR #### [facility] [address] [place] [address] UA RBC Quant 0 /HPF Normal 0-5 [facility] Comment on above: Performed By: #### E GFR #### [facility] [address] [place] [address] UA Squepi Cells Quant 1 /HPF Normal 0-29 [facility] Comment on above: Performed By: #### E GFR #### [facility] [address] [place] [address] UA WBC Quant 1 /HPF Normal 0-5 [facility] Comment on above: Performed By: #### E GFR #### [facility] [address] [place] [address] Consultation Note - Generico n 07-15-2019 Consultation Note - Generic Chief Compla int LEFT HIP ARTHRITIS,PAIN SCHEDULED: TOTAL LEFT HIP REPLACEMENT Reason for Consultation Type 2 DM History of Present Illness Mari is s/p left total hip replacement preformed by Dr Najera yesterday, we have been asked to see her for management of her diabetes with current blood sugar 282. At home she takes Metformin and reports that her blood sugars are well controlled with this. She is concerned with her throat being a but sore and her voice hoarse post-operatively but states her pain is well controlled. She plans to go home tomorrow. Last HgA1c in our system was from December 2018 and was 7.7. She does not have history of renal or heart disease. When asked about blood clots she states that she had just a small one in her leg after surgery this December. I am not able to find records to support that, venous US was negative for DVT at that time. Review of Systems Constitutional: weight change ( - ) fever ( - ) night sweats ( - ) generalized weakness ( - ) Eyes: blurry vision ( - ) discharge ( - ) double vision ( - ) ENT: sore throat ( - ) bloody nose ( - ) hearing loss ( - ) dysphagia: ( - ) Respiratory: shortness of breath ( - ) cough ( - ) hemoptysis ( - ) chronic lung disease ( - ) Cardiovascular: chest pain ( - ) palpitations ( - ) syncope ( - ) orthopnea ( - ) CAD ( - ) cardiomyopathy ( - ) edema ( - ) Gastrointestinal: nausea ( - ) vomiting ( - ) diarrhea ( - ) melena ( - ) hematemesis ( - ) Genitourinary: hematuria ( - ) dysuria ( - ) incontinence ( - ) Musculoskeletal: muscle weakness ( - ) joint swelling ( + ) mobility aids ( - ) Skin: rash ( - ) sores ( - ) Neurological: headache ( - ) stroke ( - ) seizure ( - ) Endocrine: excessive thirst ( - ) polyuria ( - ) diabetes ( + Type 2 on oral medications ) fatty liver ( - ) Psychiatric: depression ( - ) alcohol abuse ( - ) Hem/Lymphatic: blood clots ( ? ) bleeding disorder ( - ) chronic anticoagulation ( - ) Allergy/Immunology : asthma ( - ) latex allergy ( - )immunocompromised state ( - ) Physical Exam Vitals & Measurements T: 37 ?C (Oral) T: 36.2 ?C (Temporal Artery) TMIN: 36.2 ?C (Temporal Artery) TMAX: 37 ?C (Oral) HR: 65 (Monitored) RR: 16 BP: 123/65 SpO2: 93% WT: 92.8 kg DOSE WT: 92.1 kg General: well groomed; clinically euvolemic; appearance consistent with given age; cooperative; easily engaged in conversation; NAD HEENT: normocephalic; PERRL; EOMI; nasal and buccal mucosa are pink and moist; mild hoarseness Neck: no mass or lymphadenopathy; no JVD; no carotid bruit auscultated; thyroid not palpable Respiratory: clear bilaterally to anterior and posterior auscultation; no wheezing; no rhonchi; chest excursion is symmetrical; respirations are non-labored; no crackles Cardiac: heart sounds are regular; no murmur; no gallop or rub; PMI at the midclavicular line Vascular: skin turgor normal; peripheral pulses diminished but intact in the radial and posterior tibial locations bilaterally; capillary refill is brisk in the fingers and toes bilaterallymild bilateral lower extremity edema Musculoskeletal: no bone or joint deformity; no significant focal muscle strength abnormalities Neurological: alert and oriented ?3; no facial asymmetry or speech abnormality; cranial nerves bilaterally symmetric; sensation intact to light touch in the distal lower extremities Skin: no rash; skin intact on exposed areas Psych: appropriate mood and affect; appropriate eye contact; thought content appropriate, speech clear and easy to understand Additional Vitals Peripheral Pulse Rate: 92 bpm Assessment/Plan Type 2 diabetes mellitus with hyperglycemia I have ordered sliding scale insulin coverage for her, initially she refused insulin but after some discussion, reassurance and education she is agreeable to insulin coverage while she is here. Problem List/Past Medical History Ongoing Acid reflux Arthritis of left knee DDD (degenerative disc disease), lumbar DM2 (diabetes mellitus, type 2) Hip pain, left History of colon polyps Hypertension Left knee pain Left leg DVT Lipoma Lumbar herniated disc Obesity Overactive bladder Torn rotator cuff Vertigo Procedure/Surgical History ANESTH REPAIR OF HERNIA Arthroscopy of knee CCA - Cardiac catheterization COLONOSCOPY & POLYPECTOMY Excision of lipoma of back Repair of abdominal wall Total replacement of right knee joint TOTAL HYSTERECTOMY (1971) Cholecystectomy (1999) Arthroplasty Knee Total Replacement-MIS (Left) (12/30/2018) TOTAL KNEE ARTHROPLASTY (12/30/2018) Arthroplasty Hip Total Replacement - Anterio-Lateral (Left) (07/14/2019) Medications Home lisinopril 40 mg oral tablet, 40 mg, 1 tabs, Oral, qAM meclizine 12.5 mg oral tablet, 12.5 mg, 1 tabs, Oral, Daily, PRN metFORMIN 500 mg oral tablet, extended release, 500 mg, 1 tabs, Oral, BID omeprazole 20 mg oral delayed release capsule, 20 mg, 1 caps, Oral, Daily, PRN sulfamethoxazole-t rimethoprim 800 mg-160 mg oral tablet, 1 tabs, Oral, q12hr Tylenol 8 HR Arthritis Pain 650 mg oral tablet, extended release, 1300 mg, 2 tabs, Oral, q8hr, PRN Inpatient acetaminophen, 650 mg, Oral, QID acetaminophen, 650 mg, Oral, q4hr, PRN acetaminophen, 650 mg, Oral, q4hr, PRN bisacodyl, 10 mg, 1 supp, Rectal, Daily, PRN Dextrose 10% in Water IV Piggyback, 125 mL, IV Piggyback, As Indicated, PRN Dextrose 5% in Lactated Ringers Injection 1,000 mL, 1000 mL, IV diphenhydrAMINE, 25 mg, 0.5 mL, IV Push, q4hr, PRN docusate sodium, 100 mg, Oral, BID glucagon, 1 mg, Subcutaneous, As Indicated, PRN hydrocodone-acetam inophen 5 mg-325 mg oral tablet, 1 tabs, Oral, q4hr, PRN hydrocodone-acetam inophen 5 mg-325 mg oral tablet, 2 tabs, Oral, q4hr, PRN HYDROmorphone, 0.5 mg, 0.5 mL, IV Push, q3hr, PRN insulin aspart, 5 units, Subcutaneous, ACHS magnesium hydroxide 8% oral suspension, 30 mL, Oral, Daily, PRN ondansetron, 4 mg, 2 mL, IV Push, q6hr, PRN polyethylene glycol 3350, 17 g, 1 EA, Oral, Daily sodium biphosphate-sodium phosphate 7 g-19 g rectal enema, 133 mL, Rectal, Daily, PRN vancomycin Prescriptions Xarelto 10 mg oral tablet, 10 mg, 1 tabs, Oral, Daily, Not taking Allergies HONEY (Nausea & vomiting, Swelling) Milk Products (Mouth sores) penicillins (Swelling) Social History Alcohol Never Employment/School Retired Exercise Exercise frequency: Daily. Self assessment: Fair condition. Exercise type: Walking. Home/Environment Lives with Spouse. Living situation: Home/Independent. SPOUSE, Home equipment: Glucose monitoring, Walker/Cane. 2 DOGS Nutrition/Health Diabetic, Caffeine intake amount: OCCASSIONAL POP/TEA/COFFEE. Substance Abuse Denies All Tobacco Never (less than 100 in lifetime) Use:. Lab Results FSBS 282 this evening Electronically signed by Koki Marquez DO 07/15/19 01:10 EDT Normal [facility] Inpatient Clinical Summaryon 07-15-2019 Inpatient Clinical Summary [address] [address] [place] [address] Clinical Summary Person Information Name: Mari Jamison Age: 69 Years : 1950 Sex: Female PCP: Marital Status: PCP: Race: White Ethnicity: Not or Language: Jamaican Visit Id: Visit Reason: Speciality: Acuity: Enc Type: Inpatient Med Service: Surgery Arrival: 07/14/2019 05:57:15 Discharge: Dispo Type: Address: [address] [place] [id number] Diagnosis: History of total left hip replacement; Type 2 diabetes mellitus with hyperglycemia Discharged To: Home Treatments: Devices/Equipment: Professional Skilled Services: Special Services and Community Resources: Mode of Discharge Transportation: Discharge Orders Activity Restrictions Activity as tolerated-follow precautions. Activity Restrictions Continue to use your walker, crutches or cane as instructed by your physical therapist. Your therapist will tell you when you can discontinue use of walking aids. For many patients walking aids are needed only for the first few days after surgery. Activity Restrictions Exercise twice a day using the exercises on the therapy instructions sheet. It is good to continue this exercise regimen indefinitely. Activity Restrictions Walking is the best form of exercise. Begin with 15 minutes 3-4 times per day. Increase your walking time as tolerated. Activity Restrictions Continue to wear the anti-embolic (COLIN) stockings 22-24 hours per day for 4 weeks as tolerable. Discharge Patient Education Review and attach [facility] Hip[facility]Knee Inpatient Discharge Special Instructions Bruising may occur in the thigh for knee replacement patients. Do not be alarmed if this occurs. Discharge Special Instructions You may shower directly over incision 7 days after your surgery if there is no drainage from your incision, or 24 hours after drainage has stopped. Discharge Special Instructions Apply ice to operative area 20 minutes per hour while awake. Apply cloth between ice and skin for protection. Discharge Special Instructions Maintain a reasonable weight to avoid stress on your hip or knee and other joints. Discharge Special Instructions Inform all doctors who are treating you, including your dentist that you have a total joint implant. Some long-term precautions may need to be taken. Discharge Special Instructions Antibiotic therapy is needed when dental work and some surgical procedures are done. Call your doctor before any dental or surgical appointments for instructions and prescription antibiotic. Discharge Special Instructions Your total joint implant may set off metal detectors. Inform appropriate security personnel that you have an implant. You will be able to obtain an appropriate card from your doctor's office (ask the nurse at your follow-up appointment). Discharge Special Instructions Avoid all dental procedures and cleanings for 90 days after your surgery. Discharge Special Instructions If your dentist feels manipulation of your gum/teeth may introduce bacteria into your blood, they will need to prescribe antibiotics. Discharge Special Instructions Watch for these warning sign/symptoms and call your doctor if any occurs: Trouble breathing or shortness of breath; Prolonged nausea or vomiting; Chills or fever above 101 degrees F; Pain getting worse or not being helped by pain medication. Discharge Wound Care Leave the Aquacel bandage in place for one week after your surgery (replace only as necessary for drainage with the replacement from the hospital) Allergies penicillins (Swelling) HONEY (Swelling) (Nausea & vomiting) Milk Products (Mouth sores) Functional Status: Sensory Deficits: None History of Falls: None Mobility Assistance Prior to Admission: ADLs: Minimal assistance Gait: Steady Ambulation Assist: Assistive Device: Gait belt, Walker Special Orthopedic Devices: Current Level of Assistance for Self-Care/Mobility : Cognitive Status: Orientation: Orientation Assessment Oriented x 4 Level of Consciousness: Alert Characteristics of Speech: Clear Aspiration Risk: None Affect/Behavior: Appropriate, Calm, Cooperative Laboratory or Other Results This Visit (last charted value for your 07/14/2019 visit) Hematology 07/14/2019 12:26 PM Hct: 33.0 % -- Normal range between ( 36.0 and 46.0 ) Hgb: 10.9 g/dL -- Normal range between ( 12.0 and 16.0 ) Urinalysis 07/15/2019 8:10 AM UA Color: Yellow UA Urobilinogen: 0.2 mg/dL UA Bili: Negative UA Ketones: Negative mg/dL UA Leukocyte Esterase: Negative UA Nitrite: Negative UA Glucose: 150 mg/dL UA Protein: Negative mg/dL UA Blood: Negative UA Spec Grav: 1.010 -- Normal range between ( 1.003 and 1.035 ) UA pH: 6.0 UA Clarity: Clear UA Source: Clean Catch UA Mucus: Present /LPF UA WBC Quant: 1 /HPF -- Normal range between ( 0 and 5 ) UA RBC Quant: 0 /HPF -- Normal range between ( 0 and 5 ) UA Squepi Cells Quant: 1 /HPF -- Normal range between ( 0 and 29 ) Chemistry 07/14/2019 12:26 PM Creatinine Lvl: 0.75 mg/dL -- Normal range between ( 0.44 and 1.03 ) BUN: 20 mg/dL -- Normal range between ( 8 and 26 ) Glucose Lvl: 206 mg/dL -- Normal range between ( 74 and 118 ) Potassium Lvl: 3.8 mmol/L -- Normal range between ( 3.4 and 4.8 ) Sodium Lvl: 139 mmol/L -- Normal range between ( 133 and 142 ) Calcium Lvl: 8.9 mg/dL -- Normal range between ( 8.5 and 10.3 ) Chloride: 104 mmol/L -- Normal range between ( 98 and 110 ) CO2: 25 mmol/L -- Normal range between ( 22 and 32 ) Anion Gap: 14 -- Normal range between ( 7 and 17 ) eGFR Non-AA: >60 mL/min/1.73m? eGFR AA: >60 mL/min/1.73m? BUN Crea Ratio: 26.7 -- Normal range between ( 10.0 and 20.0 ) Blood Bank 07/02/2019 8:39 AM ABO/Rh: O NEG Antibody Screen: Negative ABSC POC Testing 07/15/2019 11:55 AM POC Gluc Random: 278 mg/dL -- Normal range between ( 78 and 110 ) Diagnostic Radiology 07/14/2019 9:51 AM XR Hip Operative 1 View Left: XR Hip Operative 1 View Left Measurements: Height: Weight: Blood Pressure: 130 mmHg / BMI: Respiratory: Respirations: Unlabored, Quiet Respiratory Symptoms: None Cardiovascular: Heart Sounds: Heart Rhythm: Regular Gastrointestinal: GI Symptoms: Bowel Sounds: Present Vital Signs: Temp Axillary: Temp Temporal Artery: 36.2 degC Temp Oral: 36.8 degC Temp Rectal: Apical Heart Rate: Peripheral Pulse Rate: 92 bpm Heart Rate: 65 bpm Respiratory Rate: 16 br/min Diet Diet: Feeding Tolerance: Appetite: Good Chidi Assessment: 20 Procedures No Procedures Documented Immunizations influenza virus vaccine, inactivated (07/14/2019) HERE ARE THE MEDICATION CHANGES THAT OCCURRED DURING YOUR HOSPITAL STAY New Medications Printed Prescriptions hydrocodone-acetam inophen ([place] 5 mg-325 mg oral tablet) 1 Tabs Oral (given by mouth) every 6 hours as needed as needed for pain for 7 Days. May take 1-2 tabs po q6. Refills: 0. Last Dose: Medications That Have Not Changed Printed Prescriptions rivaroxaban (Xarelto 10 mg oral tablet) 1 Tabs Oral (given by mouth) every day for 12 Days. Refills: 0. Last Dose: Other Medications acetaminophen (Tylenol 8 HR Arthritis Pain 650 mg oral tablet, extended release) 2 Tabs Oral (given by mouth) every 8 hours as needed pain. Last Dose: lisinopril (lisinopril 40 mg oral tablet) 1 Tabs Oral (given by mouth) once a day (in the morning). Last Dose: meclizine (meclizine 12.5 mg oral tablet) 1 Tabs Oral (given by mouth) every day as needed as needed for dizziness. Last Dose: metFORMIN (metFORMIN 500 mg oral tablet, extended release) 1 Tabs Oral (given by mouth) 2 times a day. Last Dose: omeprazole (omeprazole 20 mg oral delayed release capsule) 1 Capsules Oral (given by mouth) every day as needed heartburn. Last Dose: sulfamethoxazole-t rimethoprim (sulfamethoxazole- trimethoprim 800 mg-160 mg oral tablet) 1 Tabs Oral (given by mouth) every 12 hours. SAYS BEING TREATED FOR UTI. Last Dose: PROVIDED FOR YOU IS A LIST OF YOUR PATIENT?S CURRENT MEDICATIONS Printed Prescriptions hydrocodone-acetam inophen ([place] 5 mg-325 mg oral tablet) 1 Tabs Oral (given by mouth) every 6 hours as needed as needed for pain for 7 Days. May take 1-2 tabs po q6. Refills: 0. rivaroxaban (Xarelto 10 mg oral tablet) 1 Tabs Oral (given by mouth) every day for 12 Days. Refills: 0. Other Medications acetaminophen (Tylenol 8 HR Arthritis Pain 650 mg oral tablet, extended release) 2 Tabs Oral (given by mouth) every 8 hours as needed pain. lisinopril (lisinopril 40 mg oral tablet) 1 Tabs Oral (given by mouth) once a day (in the morning). meclizine (meclizine 12.5 mg oral tablet) 1 Tabs Oral (given by mouth) every day as needed as needed for dizziness. metFORMIN (metFORMIN 500 mg oral tablet, extended release) 1 Tabs Oral (given by mouth) 2 times a day. omeprazole (omeprazole 20 mg oral delayed release capsule) 1 Capsules Oral (given by mouth) every day as needed heartburn. sulfamethoxazole-t rimethoprim (sulfamethoxazole- trimethoprim 800 mg-160 mg oral tablet) 1 Tabs Oral (given by mouth) every 12 hours. SAYS BEING TREATED FOR UTI. Care Team Members: Attending Physician: Juan Casey MD Consulting Physician: Koki Marquez DO Referring Physician: Follow up: With: Address: When: Carmela ARORA, Juan Jimenes [address] [place] [phone] Normal [facility] POC Glucose Randomon 019 Glucose [Mass/Vol] 278 mg/dL High 78-110 [facility] Comment on above: Performed By: #### E GFR #### [address] [address] Glucose [Mass/Vol] 189 mg/dL High 78-110 [facility] Comment on above: Performed By: #### C OMP #### [address] [address] Glucose [Mass/Vol] 181 mg/dL High 78-110 [facility] Comment on above: Performed By: #### C OMP #### [address] [address] Glucose [Mass/Vol] 236 mg/dL High 78-110 [facility] Comment on above: Performed By: #### C OMP #### [address] [address] Glucose [Mass/Vol] 233 mg/dL High 78-110 [facility] Comment on above: Performed By: #### C OMP #### [address] [address] Glucose [Mass/Vol] 283 mg/dL High 78-110 [facility] Comment on above: Performed By: #### C OMP #### [address] [address] UA w Culture if Indon 2018 Color (U) Yellow Normal [facility] Comment on above: Performed By: #### E GFR #### [address] [place] [address] Glucose (U) [Mass/Vol] 150 mg/dL Abnormal Negative [facility] Comment on above: Performed By: #### E GFR #### [address] [place] [address] Ketones Ql (U) Negative Normal Negative [facility] Comment on above: Performed By: #### E GFR #### [address] [address] UA Blood Negative Normal Negative [facility] Comment on above: Performed By: #### E GFR #### [address] [address] UA Clarity Clear Normal [facility] Comment on above: Performed By: #### E GFR #### [address] [address] UA Leukocyte Esterase Negative Normal Negative [facility] Comment on above: Performed By: #### E GFR #### [address] [address] UA Nitrite Negative Normal Negative [facility] Comment on above: Performed By: #### E GFR #### [address] [place] [address] UA pH 6.0 Normal 4.5 - 7.8 [facility] Comment on above: Performed By: #### E GFR #### [address] [address] UA Protein Negative Normal Negative [facility] Comment on above: Performed By: #### E GFR #### [address] [address] UA Source Clean Catch Normal [facility] Comment on above: Performed By: #### E GFR #### [address] [address] UA Spec Grav 1.010 Normal 1.003-1.03 5 [facility] Comment on above: Performed By: #### E GFR #### [place] [address] UA Urobilinogen 0.2 mg/dL Normal 0.2 - 1.0 [facility] Comment on above: Performed By: #### E GFR #### [place] [id number] Urobilinogen Qn (U) Negative Normal Negative [facility] Comment on above: Performed By: #### E GFR #### [place] [id number] .eGFRon 07-14-2019 eGFR Non-AA >60 Normal >=60 [facility] Comment on above: Result Comment: Resu lt = 0-14.9 mL/min/1.73 m2 Kidney failure or Dialysis Result = 15-29 mL/min/1.73 m2 Severe decrease in GFR Result = 30-59 mL/min/1.73 m2 Moderate decrease in GFR Result >= 60 mL/min/1.73 m2 Normal or increased GFR Chronic kidney disease is defined as either kidney damage or GFR < 60 mL/min/1.73 m2 for >= 3 months. Kidney damage is defined as pathologic abnormalities or markers of damage including abnormalities in blood or urine tests or imaging studies. This GFR is NOT used for medication dosing. Performed By: #### C OMP #### [place] [address] eGFR AA >60 Normal >=60 [facility] Comment on above: Result Comment: Resu lt = 0-14.9 mL/min/1.73 m2 Kidney failure or Dialysis Result = 15-29 mL/min/1.73 m2 Severe decrease in GFR Result = 30-59 mL/min/1.73 m2 Moderate decrease in GFR Result >= 60 mL/min/1.73 m2 Normal or increased GFR Performed By: #### C OMP #### [place] [id number] Basic Metabolic Profileon Anion gap [Moles/Vol] 14 mmol/L Normal 7-17 [facility] Comment on above: Performed By: #### C [id number] #### [address] [address] Calcium [Mass/Vol] 8.9 mg/dL Normal 8.5-10.3 [facility] Comment on above: Performed By: #### C [id number] #### [address] [address] Chloride [Moles/Vol] 104 mmol/L Normal 98-110 [facility] Comment on above: Performed By: #### C [id number] #### [address] [address] CO2 [Moles/Vol] 25 mmol/L Normal 22-32 [facility] Comment on above: Performed By: #### C [id number] #### [address] [address] Creatinine [Mass/Vol] 0.75 mg/dL Normal 0.44-1.03 [facility] Comment on above: Performed By: #### C [id number] #### [address] [address] Glucose [Mass/Vol] 206 mg/dL High 74-118 [facility] Comment on above: Performed By: #### C [id number] #### [address] [address] Potassium [Moles/Vol] 3.8 mmol/L Normal 3.4-4.8 [facility] Comment on above: Performed By: #### C [id number] #### [address] [address] Sodium [Moles/Vol] 139 mmol/L Normal 133-142 [facility] Comment on above: Performed By: #### C [id number] #### [address] [address] Urea nitrogen [Mass/Vol] 20 mg/dL Normal 8-26 [facility] Comment on above: Performed By: #### C [id number] #### [address] [address] Urea nitrogen/Creatinine [Ma ss ratio] 26.7 mg/mg High 10.0-20.0 [facility] Comment on above: Performed By: #### C [id number] #### [address] [address] Hgb & Hcton 07-14-2019 Hematocrit (Bld) [Volume fraction] 33.0 % Low 36.0-46.0 [facility] Comment on above: Performed By: #### C [id number] #### [address] [address] Hemoglobin (Bld) [Mass/Vol] 10.9 g/dL Low 12.0-16. 0 [facility] Comment on above: Performed By: #### C [id number] #### [address] [address] Operative Reporton 9 Operative Report Indication for Surgery Degenerative arthritis left hip Preoperative Diagnosis Degenerative arthritis left hip Postoperative Diagnosis Same Operation Left total hip replacement Parveen 54 mm Continuum cup Fit more B4 femoral stem Versus 36 mm head +0 neck 2 acetabular screws 36 mm inner diameter elevated liner Surgeon(s) Dr. Juan Casey Department Clinician [facility] Anesthesia General Estimated Blood Loss 550 mL Urine Output No Loaiza Findings Degenerative arthritis left hip Specimen(s) None Complications None Technique Patient was brought into the operating room and placed in supine position on the operating table. General anesthetic was administered. Patient received Ancef. Was placed into a right lateral decubitus position. The left hip girdle was prepped with ChloraPrep and draped in a sterile fashion. Patient was noted to be morbidly obese. A 10 cm anterolateral skin incision was made through thick layer subcutaneous tissue. The deep fascia was identified. This was split longitudinally. Dissection was taken under the hip abductor. Capsule was identified and incised. The head and neck were exposed. Osteotomy was made at the base the head second cut was made base of the neck head neck fragments were removed. The acetabular labrum was excised. The fovea was cleared. Marked degenerative changes were noted in the hip joint. This was then reamed up to 53 mm. Some cancellous bone graft from the head was placed into the fovea and a 54 mm Continuum cluster cup was used. This was properly seated. 2 acetabular screws were used to hold it in place. A hip wound was irrigated out Simpulse with gentamicin in the irrigation solution. A 36 mm inner diameter neutral trial liner was placed. The leg was then placed in the leg bag. Box chisel was used followed by the rattail rasp. The canal was found. Fit more rasp were then used working with the be series up to a before. A trial reduction was then carried out with a standard neck 36 mm head. Hip was noted be stable in all positions but there appeared to be stiff gait head exposed the superior posteriorly. X-ray was obtained which showed a good fill with the femoral stem and good positioning of the acetabular component. The trial components removed. The hip was again irrigated out the Simpulse. A 36 mm inner diameter elevated liner was then placed with the elevation being superiorly and a posterior. The deep fascia structures were injected with 30 mL of the total joint compound. The B4 femoral fit more stem was then seated. This seated properly. A versus 36 mm head +0 neck was then assembled. Hip was reduced brought through range of motion was noted be stable in all positions. No impingement was noted. Hip was again irrigated out Simpulse. A gram of vancomycin powder was then sprinkled deep into the joint and the remainder was saved for the subcutaneous layer. The deep fascial layer was then closed with #1 Ethibond [id number] sutures. The second half of the vancomycin powder was then sprinkled into the thick layer subcutaneous. The subcutaneous layer was closed in layers with #1 Vicryl and 2-0 Vicryl. Skin margins were injected with remainder the total joint compound and had been the deep fascial layer. This was closed with 3-0 Monocryl subcuticular stitch. Dressed with Steri-Strips. Suction dressing was applied. Gen. anesthetic was then discontinued. Patient transferred to recovery in a stable condition. Estimated blood loss 550 mL. Modifier 22 patient's morbidly obese with a BMI above 40. This took an additional 10 minutes of set up time. Additional 40 minutes of surgical time. An additional 10 minutes of closure time for layer closure. Tourniquet Time No tourniquet Sponge/Needle Count Correct Fluid Count 1000 mL Electronically signed by Juan Casey MD 07/14/19 10:28 EDT Normal [facility] POC Glucose Randomon 019 Glucose [Mass/Vol] 215 mg/dL High 78-110 [facility] Comment on above: Performed By: #### E GFR #### [address] [address] Glucose [Mass/Vol] 119 mg/dL High 78-110 [facility] Comment on above: Performed By: #### C [id number] #### [address] [address] Glucose [Mass/Vol] 136 mg/dL High 78-110 [facility] Comment on above: Performed By: #### C [id number] #### [address] [address] Glucose [Mass/Vol] 204 mg/dL High 78-110 [facility] Comment on above: Performed By: #### C [id number] #### [address] [address] Glucose [Mass/Vol] 267 mg/dL High 78-110 [facility] Comment on above: Performed By: #### C [id number] #### [address] [address] Glucose [Mass/Vol] 164 mg/dL High 78-110 [facility] Comment on above: Performed By: #### C [id number] #### [address] [address] XR Hip Operative 1 View Left on 07-14-2019 XR Hip Operative 1 View Left Left total hip replacement Single portable view of the left hip is performed. Comparison is made with prior exam dated 04/14/2019. Total hip arthroplasty is noted in satisfactory position. There is no fracture. IMPRESSION: Satisfactory appearance following left total hip arthroplasty. Final Dictated by: Araceli Jones MD Dictated DT/TM: 07/14/2019 2:19 pm Signed by: Araceli Jones MD Signed (Electronic Signature): 07/14/2019 2:20 pm (If Report Is Signed, Electronically Signed in Other Vendor System) Normal [facility] ABO/Rhon 07-02-2019 ABO/Rh SD 07/14/2019 DCon: 0 ABO/Rh: O NEG Normal [facility] Comment on above: Performed By: #### C [id number] #### [address] [address] ABSC Autoon 07-02-2019 ABSC Auto Negative Normal [facility] Comment on above: Performed By: #### C [id number] #### [address] [address] CBC w/ Diffon 07-02-2019 Erythrocyte distribution wid th (RBC) [Ratio] 14.1 % Normal 11.6-14.8 [facility] Comment on above: Performed By: #### C [id number] #### [address] [address] Hematocrit (Bld) [Volume fraction] 39.9 % Normal 36.0-46.0 [facility] Comment on above: Performed By: #### C [id number] #### [address] [address] Hemoglobin (Bld) [Mass/Vol] 13.5 g/dL Normal 12.0-16. 0 [facility] Comment on above: Performed By: #### C [id number] #### [address] [address] MCH (RBC) [Entitic mass] 28.9 pg Normal 27.0-35.0 [facility] Comment on above: Performed By: #### C [id number] #### [address] [address] MCHC (RBC) [Mass/Vol] 33.8 % Normal 31.0-37.0 [facility] Comment on above: Performed By: #### C [id number] #### [address] [address] MCV (RBC) [Entitic vol] 85.6 fL Normal 80.0-100.0 [facility] Comment on above: Performed By: #### C [id number] #### [address] [address] Platelet mean volume (Bld) [Entitic vol] 8.3 fL Normal 6.7-10.6 [facility] Comment on above: Performed By: #### C [id number] #### [address] [address] Platelets (Bld) [#/Vol] 214 x10*3/mcL Normal 150-350 [facility] Comment on above: Performed By: #### C [id number] #### [address] [address] RBC (Bld) [#/Vol] 4.67 x10*6/mcL Normal 3.80-5.20 [facility] Comment on above: Performed By: #### C [id number] #### [address] [address] WBC (Bld) [#/Vol] 5.2 x10*3/mcL Normal 4.5-11.0 [facility] Comment on above: Performed By: #### C [id number] #### [address] [address] Diff Autoon 07-02-2019 Baso Absolute 0.0 x10*3/mcL Normal 0.0-0.2 [facility] Comment on above: Performed By: #### C [id number] #### [address] [address] Basophils/100 WBC (Bld) 0.5 % Normal 0.0-1.5 [facility] Comment on above: Performed By: #### C [id number] #### [address] [address] Eos Absolute 0.1 x10*3/mcL Normal 0.0-0.4 [facility] Comment on above: Performed By: #### C [id number] #### [address] [address] Eosinophils/100 WBC (Bld) 2.0 % Normal 0.0-5.4 [facility] Comment on above: Performed By: #### C [id number] #### [address] [address] Lymphocytes (Bld) [#/Vol] 1.6 x10*3/mcL Normal 1.0-4.8 [facility] Comment on above: Performed By: #### C [id number] #### [address] [address] Lymphocytes/100 WBC (Bld) 30.9 % Normal 27.2-40.8 [facility] Comment on above: Performed By: #### C [id number] #### [address] [address] Turner Absolute 0.6 x10*3/mcL Normal 0.1-1.1 [facility] Comment on above: Performed By: #### C [id number] #### [address] [address] Monocytes/100 WBC (Bld) 11.8 % Normal 3.7-11.9 [facility] Comment on above: Performed By: #### C [id number] #### [address] [address] Neutro Absolute 2.8 x10*3/mcL Normal 1.8-7.7 [facility] Comment on above: Performed By: #### C [id number] #### [address] [address] Neutro Auto 54.8 % Normal 47.2-70.8 [facility] Comment on above: Performed By: #### C [id number] #### [address] [address] .eGFRon 12-31-2018 eGFR Non-AA >60 Normal >=60 [facility] Comment on above: Result Comment: Resu lt = 0-14.9 mL/min/1.73 m2 Kidney failure or Dialysis Result = 15-29 mL/min/1.73 m2 Severe decrease in GFR Result = 30-59 mL/min/1.73 m2 Moderate decrease in GFR Result >= 60 mL/min/1.73 m2 Normal or increased GFR Chronic kidney disease is defined as either kidney damage or GFR < 60 mL/min/1.73 m2 for >= 3 months. Kidney damage is defined as pathologic abnormalities or markers of damage including abnormalities in blood or urine tests or imaging studies. This GFR is NOT used for medication dosing. Performed By: #### C [id number] #### [address] [address] eGFR AA >60 Normal >=60 [facility] Comment on above: Result Comment: Resu lt = 0-14.9 mL/min/1.73 m2 Kidney failure or Dialysis Result = 15-29 mL/min/1.73 m2 Severe decrease in GFR Result = 30-59 mL/min/1.73 m2 Moderate decrease in GFR Result >= 60 mL/min/1.73 m2 Normal or increased GFR Performed By: #### C [id number] #### [address] [address] Basic Metabolic Profileon Anion gap [Moles/Vol] 12 mmol/L Normal 7-17 [facility] Comment on above: Performed By: #### C BC #### [address] [address] Calcium [Mass/Vol] 8.9 mg/dL Normal 8.5-10.3 [facility] Comment on above: Performed By: #### C BC #### [address] [address] Chloride [Moles/Vol] 107 mmol/L Normal 98-110 [facility] Comment on above: Performed By: #### C BC #### [address] [address] CO2 [Moles/Vol] 21 mmol/L Low 22-32 [facility] Comment on above: Performed By: #### C BC #### [address] [address] Creatinine [Mass/Vol] 0.74 mg/dL Normal 0.44-1.03 [facility] Comment on above: Performed By: #### C BC #### [address] [address] Glucose [Mass/Vol] 243 mg/dL High 74-118 [facility] Comment on above: Performed By: #### C BC #### [address] [address] Potassium [Moles/Vol] 4.0 mmol/L Normal 3.4-4.8 [facility] Comment on above: Performed By: #### C BC #### [address] [address] Sodium [Moles/Vol] 136 mmol/L Normal 133-142 [facility] Comment on above: Performed By: #### C BC #### [address] [address] Urea nitrogen [Mass/Vol] 21 mg/dL Normal 8-26 [facility] Comment on above: Performed By: #### C BC #### [address] [address] Urea nitrogen/Creatinine [Ma ss ratio] 28.4 mg/mg High 10.0-20.0 [facility] Comment on above: Performed By: #### C BC #### [address] [address] Hgb & Hcton 12-31-2018 Hematocrit (Bld) [Volume fraction] 32.0 % Low 36.0-46.0 [facility] Comment on above: Performed By: #### C BC #### [facility] [address] [place] [address] Hemoglobin (Bld) [Mass/Vol] 10.7 g/dL Low 12.0-16. 0 [facility] Comment on above: Performed By: #### C BC #### [facility] [address] [place] [address] Inpatient Clinical Summaryon 12-31-2018 Inpatient Clinical Summary [facility] [address] [place] [id number] [address] Clinical Summary Person Information Name: Mari Jamison Age: 68 Years : 1950 Sex: Female PCP: Suzie Kim CNP Marital Status: PCP: [phone] Race: White Ethnicity: Not or Language: Jamaican Visit Id: Visit Reason: Speciality: Acuity: Enc Type: Observation Med Service: Surgery Arrival: 12/30/2018 06:28:09 Discharge: Dispo Type: Address: [address] [place] [id number] Diagnosis: 1:S/P total knee replacement; 2:Arthritis of left knee; 3:DM2 (diabetes mellitus, type 2) Discharged To: Home Treatments: Devices/Equipment: Professional Skilled Services: Special Services and Community Resources: Mode of Discharge Transportation: Discharge Orders Activity Restrictions Activity as tolerated-follow precautions. Activity Restrictions Continue to use your walker, crutches or cane as instructed by your physical therapist. Your therapist will tell you when you can discontinue use of walking aids. For many patients walking aids are needed only for the first few days after surgery. Activity Restrictions Exercise twice a day using the exercises on the therapy instructions sheet. It is good to continue this exercise regimen indefinitely. Activity Restrictions Walking is the best form of exercise. Begin with 15 minutes 3-4 times per day. Increase your walking time as tolerated. Activity Restrictions Continue to wear the anti-embolic (COLIN) stockings 22-24 hours per day for 4 weeks as tolerable. Discharge Patient Education Review and attach [facility] Hip/Knee Inpatient Discharge Special Instructions If your dentist feels manipulation of your gum/teeth may introduce bacteria into your blood, they will need to prescribe antibiotics. Discharge Special Instructions Watch for these warning sign/symptoms and call your doctor if any occurs: Trouble breathing or shortness of breath; Prolonged nausea or vomiting; Chills or fever above 101 degrees F; Pain getting worse or not being helped by pain medication. Discharge Special Instructions Bruising may occur in the thigh for knee replacement patients. Do not be alarmed if this occurs. Discharge Special Instructions You may shower directly over incision 7 days after your surgery if there is no drainage from your incision, or 24 hours after drainage has stopped. Discharge Special Instructions Apply ice to operative area 20 minutes per hour while awake. Apply cloth between ice and skin for protection. Discharge Special Instructions Maintain a reasonable weight to avoid stress on your hip or knee and other joints. Discharge Special Instructions Inform all doctors who are treating you, including your dentist that you have a total joint implant. Some long-term precautions may need to be taken. Discharge Special Instructions Antibiotic therapy is needed when dental work and some surgical procedures are done. Call your doctor before any dental or surgical appointments for instructions and prescription antibiotic. Discharge Special Instructions Your total joint implant may set off metal detectors. Inform appropriate security personnel that you have an implant. You will be able to obtain an appropriate card from your doctor's office (ask the nurse at your follow-up appointment). Discharge Special Instructions Avoid all dental procedures and cleanings for 90 days after your surgery. Discharge Wound Care Leave the Aquacel bandage in place for one week after your surgery (replace only as necessary for drainage with the replacement from the hospital) Allergies penicillins (Swelling) HONEY (Swelling) (Nausea & vomiting) Milk Products (Mouth sores) Functional Status: Sensory Deficits: None History of Falls: Mobility Assistance Prior to Admission: ADLs: Minimal assistance Gait: Steady Ambulation Assist: Assistive Device: Gait belt, Walker Special Orthopedic Devices: Current Level of Assistance for Self-Care/Mobility : Cognitive Status: Orientation: Orientation Assessment Oriented x 4 Level of Consciousness: Alert Characteristics of Speech: Clear Aspiration Risk: None Affect/Behavior: Appropriate Laboratory or Other Results This Visit (last charted value for your 12/30/2018 visit) Hematology 12/31/2018 4:57 AM Hct: 32.0 % -- Normal range between ( 36.0 and 46.0 ) Hgb: 10.7 g/dL -- Normal range between ( 12.0 and 16.0 ) Chemistry 12/31/2018 4:57 AM Creatinine Lvl: 0.74 mg/dL -- Normal range between ( 0.44 and 1.03 ) BUN: 21 mg/dL -- Normal range between ( 8 and 26 ) Glucose Lvl: 243 mg/dL -- Normal range between ( 74 and 118 ) Potassium Lvl: 4.0 mmol/L -- Normal range between ( 3.4 and 4.8 ) Sodium Lvl: 136 mmol/L -- Normal range between ( 133 and 142 ) Calcium Lvl: 8.9 mg/dL -- Normal range between ( 8.5 and 10.3 ) Chloride: 107 mmol/L -- Normal range between ( 98 and 110 ) CO2: 21 mmol/L -- Normal range between ( 22 and 32 ) Anion Gap: 12 -- Normal range between ( 7 and 17 ) eGFR Non-AA: >60 mL/min/1.73m? eGFR AA: >60 mL/min/1.73m? BUN Crea Ratio: 28.4 -- Normal range between ( 10.0 and 20.0 ) Molecular 12/30/2018 1:10 PM Methicillin Resistant Staph aurus(MRSA): Negative POC Testing 12/31/2018 8:06 AM POC Gluc Random: 149 mg/dL -- Normal range between ( 78 and 110 ) Measurements: Height: Weight: Blood Pressure: 123 mmHg / BMI: Respiratory: Respirations: Unlabored Respiratory Symptoms: None Cardiovascular: Heart Sounds: Heart Rhythm: Regular Gastrointestinal: GI Symptoms: Bowel Sounds: Present Vital Signs: Temp Axillary: Temp Temporal Artery: 36.8 degC Temp Oral: 37 degC Temp Rectal: Apical Heart Rate: Peripheral Pulse Rate: 86 bpm Heart Rate: 73 bpm Respiratory Rate: 16 br/min Diet Diet: Feeding Tolerance: Appetite: Good Chidi Assessment: 21 Procedures Excision of lipoma of back COLONOSCOPY & POLYPECTOMY Total replacement of right knee joint CCA - Cardiac catheterization Arthroscopy of knee ANESTH REPAIR OF HERNIA Repair of abdominal wall Arthroplasty Knee Total Replacement-MIS (Left) (12/30/2018) Cholecystectomy (1999) TOTAL HYSTERECTOMY (1971) Immunizations No Immunizations Documented This Visit HERE ARE THE MEDICATION CHANGES THAT OCCURRED DURING YOUR HOSPITAL STAY Medications That Have Not Changed Printed Prescriptions hydrocodone-acetam inophen ([place] 5 mg-325 mg oral tablet) 1 Tabs Oral (given by mouth) every 6 hours as needed as needed for pain for 7 Days. May take 1-2 tabs po q6. Refills: 0. Last Dose: rivaroxaban (Xarelto 10 mg oral tablet) 1 Tabs Oral (given by mouth) every day for 12 Days. Refills: 0. Last Dose: Other Medications acetaminophen (Tylenol 8 HR Arthritis Pain 650 mg oral tablet, extended release) 2 Tabs Oral (given by mouth) every 8 hours as needed pain. Last Dose: lisinopril (lisinopril 40 mg oral tablet) 1 Tabs Oral (given by mouth) once a day (in the morning). Last Dose: meclizine (meclizine 12.5 mg oral tablet) 1 Tabs Oral (given by mouth) every day as needed as needed for dizziness. Last Dose: metFORMIN (metFORMIN 500 mg oral tablet, extended release) 1 Tabs Oral (given by mouth) 2 times a day. Last Dose: omeprazole (omeprazole 20 mg oral delayed release capsule) 1 Capsules Oral (given by mouth) once a day (in the morning). Last Dose: PROVIDED FOR YOU IS A LIST OF YOUR PATIENT?S CURRENT MEDICATIONS Printed Prescriptions hydrocodone-acetam inophen ([place] 5 mg-325 mg oral tablet) 1 Tabs Oral (given by mouth) every 6 hours as needed as needed for pain for 7 Days. May take 1-2 tabs po q6. Refills: 0. rivaroxaban (Xarelto 10 mg oral tablet) 1 Tabs Oral (given by mouth) every day for 12 Days. Refills: 0. Other Medications acetaminophen (Tylenol 8 HR Arthritis Pain 650 mg oral tablet, extended release) 2 Tabs Oral (given by mouth) every 8 hours as needed pain. lisinopril (lisinopril 40 mg oral tablet) 1 Tabs Oral (given by mouth) once a day (in the morning). meclizine (meclizine 12.5 mg oral tablet) 1 Tabs Oral (given by mouth) every day as needed as needed for dizziness. metFORMIN (metFORMIN 500 mg oral tablet, extended release) 1 Tabs Oral (given by mouth) 2 times a day. omeprazole (omeprazole 20 mg oral delayed release capsule) 1 Capsules Oral (given by mouth) once a day (in the morning). Care Team Members: Attending Physician: Carmela ARORA, Juan Jimenes Consulting Physician: Malick Martinez PA-C, MD, Farida Mitchell MD, Amanda Referring Physician: Follow up: With: Address: When: Juan Casey [address] [place] [address] [phone] Business (1) Within 1 to 2 weeks Comments: 2 weeks With: Address: When: Suzie Kim [address] [place] [address] [phone] Business (1) Normal [facility] POC Glucose Randomon 019 Glucose [Mass/Vol] 270 mg/dL High 78-110 [facility] Comment on above: Performed By: #### C [id number] #### [address] [address] Glucose [Mass/Vol] 149 mg/dL High 78-110 [facility] Comment on above: Performed By: #### C [id number] #### [address] [address] Glucose [Mass/Vol] 174 mg/dL High 78-110 [facility] Comment on above: Performed By: #### C [id number] #### [address] [address] Glucose [Mass/Vol] 244 mg/dL High 78-110 [facility] Comment on above: Performed By: #### C BC #### [facility] [address] [place] [address] Glucose [Mass/Vol] 303 mg/dL High 78-110 [facility] Comment on above: Performed By: #### C BC #### [facility] [address] [place] [address] Progress Note - Genericon Progress Note - Generic Subjective Patient seen and examined. She is resting in bed with left lower extremity propped on a pillow. Patient reports her left calf is sore and tender, feels similar to her previous DVT. She is eating and drinking fluids. She is on room air. Review of Systems Constitutional: No fevers, chills. Eye: No complaints. ENMT: No ear pain, nasal congestion, or sore throat. Respiratory: No shortness of breath, or cough. Cardiovascular: No Chest pain, palpitations, syncope. Gastrointestinal: No nausea, vomiting, diarrhea. Genitourinary: No complaints. Objective Vitals & Measurements T: 37 ?C (Oral) T: 36.6 ?C (Skin) T: 36.8 ?C (Temporal Artery) HR: 73 (Monitored) RR: 16 BP: 123/57 SpO2: 93% HT: 162 cm HT: 162 cm WT: 86.18 kg DOSE WT: 86.18 kg BMI: 0 Additional Vitals Peripheral Pulse Rate: 86 bpm Lab Results Microbiology No qualifying data available. Labs Lab Results Hgb: 10.7 g/dL Low (12/31/18 04:57:00 EDT) Hct: 32 % Low (12/31/18 04:57:00 EDT) Sodium Lvl: 136 mmol/L (12/31/18 04:57:00 EDT) Potassium Lvl: 4 mmol/L (12/31/18 04:57:00 EDT) Chloride: 107 mmol/L (12/31/18 04:57:00 EDT) CO2: 21 mmol/L Low (12/31/18 04:57:00 EDT) Anion Gap: 12 (12/31/18 04:57:00 EDT) Glucose Lvl: 243 mg/dL High (12/31/18 04:57:00 EDT) BUN: 21 mg/dL (12/31/18 04:57:00 EDT) Creatinine Lvl: 0.74 mg/dL (12/31/18 04:57:00 EDT) eGFR AA: >60 (12/31/18 04:57:00 EDT) eGFR Non-AA: >60 (12/31/18 04:57:00 EDT) BUN Crea Ratio: 28.4 High (12/31/18 04:57:00 EDT) Calcium Lvl: 8.9 mg/dL (12/31/18 04:57:00 EDT) Methicillin Resistant Staph aurus(MRSA): Negative.. (12/30/18 13:10:00 EDT) POC Gluc Random: 270 mg/dL High (12/31/18 11:42:00 EDT) Diagnostic Results Reason For Exam Leg pain REPORT Preliminary Technologist Report Left lower extremity: Appeared to be no evidence of acute or chronic DVT in the visualized veins. Normal comparative study of the right common femoral vein. Results called to ELROY Snider. Nipping Machine Operator: Maribel Collins, RHODAT Radiologist Report Signature Line Transcribed by: Maribel Collins Transcribed DT/TM: 12.31.2018 10:58 am Physical Exam General: [Patient in no acute distress. HEENT: head normocephalic and atraumatic. Neuro: PERRLA. Lungs: Bilaterally clear to auscultation. Non-labored respirations. Heart: Normal rate, regular rhythm. No edema. Abdomen: Soft, non-distended, normal bowel sounds in all 4 quadrants. Abdomen non-tender to palpation. Musculoskeletal: Left lower extremity pain secondary to surgical procedure. Normal range of motion and strength. Mental Status: Alert and oriented x 3. Skin: Warm dry and intact. Medications Inpatient acetaminophen, 650 mg, Oral, q4hr, PRN acetaminophen, 650 mg, Oral, QID bisacodyl, 10 mg, 1 supp, Rectal, Daily, PRN Colace, 100 mg, Oral, BID Fleet Enema 7 g-19 g rectal enema, 133 mL, Rectal, Daily, PRN glucagon, 1 mg, Subcutaneous, As Indicated, PRN glucose, 12.5 g, 25 mL, IV Push, As Indicated, PRN HYDROmorphone, 0.5 mg, 0.5 mL, IV Push, q3hr, PRN insulin aspart, 8 units, Subcutaneous, ACHS Lactated Ringers Injection intravenous solution 1,000 mL, 1000 mL, IV lisinopril, 40 mg, Oral, qAM meclizine, 12.5 mg, Oral, Daily, PRN meloxicam, 15 mg, Oral, Daily Normal Saline Flush 0.9% injectable solution, 10 mL, IV Push, Once, PRN omeprazole, 20 mg, Oral, qAM oxyCODONE, 5 mg, Oral, q4hr, PRN oxyCODONE, 10 mg, Oral, q4hr, PRN rivaroxaban, 10 mg, Oral, Daily vancomycin Zofran, 4 mg, 2 mL, IV Push, q6hr, PRN Assessment/Plan 1. S/P total knee replacement Patient is POD 1, venous ultrasound of the left lower extremity negative for DVT. Patient okay to discharge from hospitalist perspective. 2. Arthritis of left knee 3. DM2 (diabetes mellitus, type 2) Stable, continue home medications. Orders: VL Extremity Venous Duplex Lower Left Okay to discharge to home. [1] FABIAN VL Extremity Venous Duplex Lower Left; Maribel Collins 12/31/2018 10:57 EDT Electronically signed by Tomas Holt CNP 12/31/18 13:28 EDT Normal [facility] VL Extremity Venous Duplex Dontae Stone 12-31-2018 VL Extremity Venous Duplex Lower Left Preliminary Technologist Report Left lower extremity: Appeared to be no evidence of acute or chronic DVT in the visualized veins. Normal comparative study of the right common femoral vein. Results called to ELROY Snider. Nipping Machine Operator: Maribel Collins RVT Radiologist Report Left lower extremity venous duplex study: Clinical Information: Left leg pain. Status post total knee replacement. History DVT. Comparison: No prior. Technique: Color-flow and grayscale imaging of the veins of the extremity. Findings: No acute or chronic deep vein intraluminal thrombus. Normal compression and augmentation. Good phasic flow is seen. No abnormal collaterals. No other significant findings. A comparative study of the right common femoral vein shows no significant findings. Conclusion: 1. No evidence of acute or chronic deep vein thrombosis. Final Signed by: Araceli Jones MD Signed (Electronic Signature): 12.31.2018 5:04 pm Transcribed by: Maribel Collins Transcribed DT/TM: 12.31.2018 10:58 (If Report is Signed, Electronically Signed in Other Vendor System) Normal [facility] Consultation Note - Generico n 12-30-2018 Consultation Note - Generic Chief Compla int LEFT KNEE PAIN/ARTHRITIS-KAMINI EDULED FOR TOTAL LEFT KNEE Reason for Consultation diabetes management History of Present Illness PCP: Suzie kim CNP- [facility] orthopedist: Dr. Juan Casey urologist: Dr. juan luis Lane spine surgeon: Dr. Krishan Espana Nikolas, [place] The patient is a 68-year-old female with a history of diabetes mellitus type II on metformin therapy outpatient, gastroesophageal reflux disease, osteoarthritis of the bilateral knees status post right total knee replacement in the past and currently status post left total knee replacement today by Dr. Casey, history of left lower extremity DVT previously treated with surrounding toe in 2016, overactive bladder, obesity, chronic lower back pain with history of lumbar herniated disc with planned upcoming lumbar surgery, vertigo on meclizine, torn rotator cuff with planned upcoming rotator cuff repair surgery was Dr. Casey, history of lipoma with subsequent removal, history of colon polyps, hypertension. She was admitted for a planned scheduled total left knee replacement for arthritis. She had outpatient clearance for surgery by her PCP. Preoperative EKG shows evidence of prior inferior myocardial infarctions though patient denies any known history of coronary artery disease. Denies any chest pain. No reported complications during the surgery. Hospitalist group was asked to see the patient in consultation for management of her diabetes while inpatient. She has already been seen by physical therapy and plans to return home at discharge. Post surgical pain currently well controlled. Mari was diagnosed with diabetes mellitus type II 10-20 years ago and has been on metformin only during that time. Never required insulin. Checks her blood sugar at home twice daily and glucose is normally between 80 and 100. Denies history of diabetic ketoacidosis. Performs frequent foot exams. She states at her last PCP visit she was told that she would likely be taken off of metformin at her next visit due to stable glucoses and improved hemoglobin A1c. Hba1c 7.7 on pre op labs December 2018. Mari reports that she has yearly diabetic eye exams and denies any diabetic retinopathy. Denies diabetic neuropathy or renal disease. She is on an ASHU inhibitor. glucose prior to surgery 179 Following surgery she is on D5 LR at 80 mL an hour and a regular diet. Other complaints include increased urinary frequency and increased thirst that have been present for months. She has discussed this with her spine surgeon who did not feel it was related to her lumbar herniated disc and she denies saddle anesthesia or loss of bowel control. She was previously placed on an unknown medication for overactive bladder but she states it caused her to have blistering on her tongue and she stopped this. She does follow with a urologist Dr. Juan Luis Lane. Denies dysuria. She states that her urine tends to smell like alcohol. She believes she has normal fluid intake. Review of Systems 10 point ROS obtained and negative except as stated in HPI Physical Exam Vitals & Measurements T: 36.7 ?C (Oral) T: 36.6 ?C (Skin) T: 36.8 ?C (Temporal Artery) TMIN: 36.6 ?C (Skin) TMAX: 36.8 ?C (Temporal Artery) HR: 73 (Monitored) RR: 16 BP: 119/62 SpO2: 94% on RA General: Alert and oriented x3, well nourished, no acute distress. Eye: PERRL, EOMI, normal conjunctiva, no scleral icterus, no conjunctival pallor HENT: Normocephalic, normal hearing, moist oral mucosa, no scleral icterus, no sinus tenderness. Neck: Supple, non-tender, no carotid bruits, no JVD, no lymphadenopathy. Lungs: Clear to auscultation and percussion, non-labored respiration. Heart: Normal rate, regular rhythm, no murmur, gallop or edema. Abdomen: Soft, non-tender, non-distended, normal bowel sounds, no masses. midline vertical abdominal hernia repair incision- healed Musculoskeletal: Normal range of motion and strength RLE, no tenderness or swelling RLE. LLE with drain in knee with sanguinous drainage noted, knee covered in bandage. no skin discoloration or swelling noted outside bandage. moving LLE normally. normal push/pull feet. impaired L knee bending in bandage. Skin: Skin is warm, dry and pink, no rashes or lesions. Neurologic: Awake, alert, and oriented X3, CN II-XII grossly intact. Psychiatric: Cooperative, appropriate mood and affect. Additional Vitals Peripheral Pulse Rate: 91 bpm Assessment/Plan 1. S/P total knee replacement - per ortho recommendations - on [place] prn pain and IV dilaudid prn breakthrough pain - Xarelto prn DVT prophylaxis. 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 Has rxs for Xarelto and W[place]ca to be continued on discharge - plans to return home at discharge. 2. Arthritis of left knee - s/p L total knee replacement POD #[address] Casey - hx R knee OA and hx R total knee replacement 3. DM2 (diabetes mellitus, type 2) - on metformin only outpatient. Pt states was going to be taken off metformin at upcoming PCP office visit. - Hba1c pre op 7.7. presurgery glucose 179 - Hold metformin while inpatient. Start low SSI ACHS. - continue home lisinopril - Change to ADA 1800kcal/day diet - Change IVF from D5% LR to LR 80mL/hr and likely DC IVF in a.m. as pt eating normally - evening BS check with hyperglycemia but dextrose IVF had just been stopped prior to that check. Will see what hs FSBS is before making adjustements. 4. HTN - resumed home lisinopril H/H and BMP ordered for a.m. Resumed remainder of home meds Prilosec, Meclizine, lisinopril. VTE: Xarelto Dispo: plans to return home at discharge. OK to DC home when OK with ortho Orders: glucagon, 1 mg, Subcutaneous, Injection, As Indicated for 20 doses, PRN other (see comment), First Dose: 12/30/18 15:58:00 EDT, Stop Date: Limited # of times, Dispense From Location: [id number] glucose, 12.5 g, IV Push, Injection, As Indicated for 20 doses, PRN other (see comment), First Dose: 12/30/18 15:58:00 EDT, Stop Date: Limited # of times, Dispense From Location: [id number] insulin aspart, 4, Subcutaneous, Injection, Once, First Dose: 12/30/18 22:51:00 EDT, Stop Date: 12/30/18 22:51:00 EDT insulin aspart, 1-8 units, Subcutaneous, Injection, ACHS, First Dose: 12/31/18 7:30:00 EDT Lactated Ringers Injection intravenous solution 1,000 mL, 1,000 mL, Soln-IV, IV, 80 mL/hr, Start Date: 12/30/18 15:56:00 EDT, Dispense From Location: 6NU lisinopril, 40 mg, Oral, Tab, qAM, First Dose: 12/31/18 9:00:00 EDT, Dispense From Location: [id number] meclizine, 12.5 mg, Oral, Tab, Daily, PRN dizziness, First Dose: 12/30/18 15:56:00 EDT, Dispense From Location: [id number] omeprazole, 20 mg, Oral, Cap-DR, qAM, First Dose: 12/31/18 7:00:00 EDT, Dispense From Location: [id number] ADA Diet Blood Glucose Monitoring POC Blood Glucose Monitoring POC Blood Glucose Monitoring POC Blood Glucose Monitoring POC [place] [facility] [place] Notify Provider Notify Provider Notify Provider Notify Provider Problem List/Past Medical History Ongoing Acid reflux Arthritis of left knee DDD (degenerative disc disease), lumbar DM2 (diabetes mellitus, type 2) History of colon polyps Hypertension Left knee pain Left leg DVT Lipoma Lumbar herniated disc Obesity Overactive bladder Torn rotator cuff Vertigo Historical No qualifying data Procedure/Surgical History ANESTH REPAIR OF HERNIA Arthroscopy of knee CCA - Cardiac catheterization COLONOSCOPY & POLYPECTOMY Excision of lipoma of back Repair of abdominal wall Total replacement of right knee joint TOTAL HYSTERECTOMY (1971) Cholecystectomy (1999) Arthroplasty Knee Total Replacement-MIS (Left) (12/30/2018) Medications Home lisinopril 40 mg oral tablet, 40 mg, 1 tabs, Oral, qAM meclizine 12.5 mg oral tablet, 12.5 mg, 1 tabs, Oral, Daily, PRN metFORMIN 500 mg oral tablet, extended release, 500 mg, 1 tabs, Oral, BID omeprazole 20 mg oral delayed release capsule, 20 mg, 1 caps, Oral, qAM Tylenol 8 HR Arthritis Pain 650 mg oral tablet, extended release, 1300 mg, 2 tabs, Oral, q8hr, PRN Inpatient acetaminophen, 650 mg, Oral, q4hr, PRN acetaminophen, 650 mg, Oral, QID bisacodyl, 10 mg, 1 supp, Rectal, Daily, PRN Colace, 100 mg, Oral, BID Fleet Enema 7 g-19 g rectal enema, 133 mL, Rectal, Daily, PRN glucagon, 1 mg, Subcutaneous, As Indicated, PRN glucose, 12.5 g, 25 mL, IV Push, As Indicated, PRN HYDROmorphone, 0.5 mg, 0.5 mL, IV Push, q3hr, PRN insulin aspart, 1-8 units, Subcutaneous, ACHS Lactated Ringers Injection intravenous solution 1,000 mL, 1000 mL, IV lisinopril, 40 mg, Oral, qAM magnesium hydroxide 8% oral suspension, 30 mL, Oral, Once, PRN meclizine, 12.5 mg, Oral, Daily, PRN meloxicam, 15 mg, Oral, Daily Normal Saline Flush 0.9% injectable solution, 10 mL, IV Push, Once, PRN NovoLOG, 4, Subcutaneous, Once omeprazole, 20 mg, Oral, qAM rivaroxaban, 10 mg, Oral, Daily vancomycin Zofran, 4 mg, 2 mL, IV Push, q6hr, PRN Prescriptions [place] 5 mg-325 mg oral tablet, 1 tabs, Oral, q6hr, PRN Xarelto 10 mg oral tablet, 10 mg, 1 tabs, Oral, Daily Allergies HONEY (Swelling, Nausea & vomiting) Milk Products (Mouth sores) penicillins (Swelling) Social History Alcohol Never Exercise Exercise frequency: Daily. Self assessment: Fair condition. Exercise type: Walking. Home/Environment Home equipment: Glucose monitoring. Nutrition/Health Diabetic, Caffeine intake amount: OCCASSIONAL POP/TEA/COFFEE. Substance Abuse Denies All Tobacco Never (less than 100 in lifetime) Use:. Lab Results Microbiology No qualifying data available. Last Month Basic Metabolic Panel: Hematology: Sodium Lvl: 136 (12/08/18) Hgb: 12.9 (12/08/18) Potassium Lvl: 4.0 (12/08/18) Hgb A1c: 7.7 (12/08/18) Phosphorus: ------ WBC: 6.5 (12/08/18) Magnesium Lvl: ------ Platelet: 218 (12/08/18) BUN: 16 (12/08/18) INR POC: ------ Creatinine Lvl: 0.63 (12/08/18) Creatinine Clearance: ------ Urinalysis: UA Glucose: Negative (12/08/18) UA Blood: Small (12/08/18) UA Nitrite: Negative (12/08/18) UA Protein: Negative (12/08/18) UA Ketones: Negative (12/08/18) Urine Color Urine Dipstick: Yellow (12/08/18) UA Leukocyte Esterase: Trace (12/08/18) UA Clarity: Clear (12/08/18) UA Bili: Negative (12/08/18) UA pH: 5.0 (12/08/18) UA Urobilinogen: 0.2 (12/08/18) UA Spec Grav: 1.018 (12/08/18) Additional - Last Month AG Ratio: 1.1 (12/08/18) Albumin Lvl: 4.0 (12/08/18) Alk Phos: 58 (12/08/18) ALT: 18 (12/08/18) Anion Gap: 15 (12/08/18) AST: 20 (12/08/18) Baso Absolute: 0.0 (12/08/18) Basophil Auto: 0.8 (12/08/18) Bili Total: 0.6 (12/08/18) BUN Crea Ratio: 25.4 (12/08/18) Calcium Lvl: 9.2 (12/08/18) Chloride: 100 (12/08/18) CO2: 25 (12/08/18) Culture Urine: NEG (12/08/18) eAvg Glucose: 174 (12/08/18) eGFR AA: >60 (12/08/18) eGFR Non-AA: >60 (12/08/18) Eos Absolute: 0.2 (12/08/18) Eos Auto: 2.8 (12/08/18) Glucose Lvl: 156 (12/08/18) Hct: 39.7 (12/08/18) Lymph Absolute: 2.1 (12/08/18) Lymph Auto: 32.9 (12/08/18) MCH: 28.3 (12/08/18) MCHC: 32.5 (12/08/18) MCV: 87.1 (12/08/18) Mean Platelet Volume: 8.2 (12/08/18) Methicillin Resistant Staph aurus(MRSA): Negative (12/30/18) Turner Absolute: 0.7 (12/08/18) Turner Auto: 10.3 (12/08/18) Neutro Absolute: 3.4 (12/08/18) Neutro Auto: 53.2 (12/08/18) POC Gluc Random: 374 mg/dL (12/30/18) RBC: 4.56 (12/08/18) RDW: 13.9 (12/08/18) Sed Rate: 13 (12/08/18) Total Protein: 7.6 (12/08/18) UA Mucus: Present (12/08/18) UA RBC Quant: 0 (12/08/18) UA Squepi Cells Quant: 1 (12/08/18) UA WBC Quant: 1 (12/08/18) Diagnostic Results ECG 12/08/18 with evidence of prior inferior RI Electronically signed by DoedMarcia hunt DOne 12/30/18 23:17 EDT glucose prior to supper 300's- given 4 units per SSI repeat glucose at hs still 300's- given 5 units per SSI - will add 3am check and nursing to call if still >300 and will add coverage - increase sliding scale to medium coverage ACHS. - could still be related to getting dextrose in IVF postoperatively. off now and on regular LR 80/hr. Electronically signed by Doede Marciasohail Willoughby 12/30/18 23:19 EDT Normal [facility] MRSA, PCRon 12-30-2018 INR Coag (Bld) [Relative time] Negative Normal [facility] Comment on above: Result Comment: The [employer]epCellARide[employer] Xpert MRSA Assay is a qualitative in vitro diagnostic test designed for rapid detection of Methicillin-Resistant Staphylococcus aureus (MRSA) from nasal swabs in patients at risk for nasal colonization.The test utilizes automated real-time polymerase chain reaction (PCR) to detect MRSA DNA,because the detection of MRSA is dependent on the number of organisms present. A positive test result does not necessarily indicate the presence of viable organism. It is however,presumptive for the presence of MRSA.Test results might be affected by concurrent antibiotic therapy. Therefore, therapeutic success or failure cannot be assessed using this test because DNA might persist following antimicrobial therapy. Mutations or polymorphisms in primer or probe binding regions may affect detection of new or unknown MRSA variants resulting in a false negative result. Results from the Xpert MRSA Assay should be interpreted in conjunction with other laboratory and clinical data available to the clinician. Performed By: #### C #### [facility] [address] [place] [id number] Operative Reporton 9 Operative Report Indication for Surgery Degenerative arthritis left knee Preoperative Diagnosis Degenerative arthritis left knee Postoperative Diagnosis Same Operation Left total knee replacement Parveen persona knee Persona CR 7 femoral component Persona stemmed E plateau 10 mm CR vitamin E poly- 32 mm vitamin E patellar dome Surgeon(s) Dr. Percy Casey Department Clinician Ce Jodi ANDERSON Anesthesia Spinal Estimated Blood Loss 100 mL Urine Output No Loaiza Findings Arthritis left knee Specimen(s) None Complications None Technique Patient was brought into the operating room and placed in supine position on the operating table. Spinal anesthetic was administered. Patient's left lower extremity was prepped with ChloraPrep and draped in a sterile fashion. Patient received a gram of vancomycin. A 10 cm medial parapatellar quad sparing incision was made. This takedown through the skin and subcutaneous tissue. Arthrotomy was made along the medial border the patellar tendon through the medial retinaculum and medial quad snip was made superior pole patella patella. Fat pad was excised. Marked degenerative changes were noted in all 3 compartments of the knee. Central drill holes placed on the femoral canal a distal femoral cut was set at 5? of valgus. Femoral towers was then used in to balbina 3? of external rotation. This followed by a size 7 4-in-1 cutting block for persona knee. Surface tibia was then osteotomized with the tibial jig. Remnants of menisci removed. Posterior capsule was injected with 20 mL of the total joint compound. Undersurface patella was then osteotomized let go with a 32 mm patella dome. Norco holes were placed. The knee was then cleansed the Simpulse with gentamicin irrigation solution. Trial reduction was then carried out. Let to go with the persona's CR 7 femoral component size is stemmed tibial plateau with a 10 mm poly-and a 32 mm patellar dome. Knee was well balanced both in flexion and extension. The trial components were then removed. The knee was cleansed the Simpulse with gentamicin in the irrigation solution. The tibia component was uncemented place. This is followed by cementing the femoral component place and finally the patellar dome was cemented in place. All excess cement was removed. The deep fascia structures injected with 50 mL of the total joint compound. TXA solution was injected into the soft tissues. The knee was then closed with #1 Vicryl figure of 8 sutures over 2 Hemovac drains. 2-0 Vicryl in subcutaneous. Skin margins were injected with the remainder of the total joint compound and closed with a 3-0 Monocryl subcutaneous ticklish stitch. Wound was dressed with Steri-Strips Adaptic fluffs ABDs Kerlix roll and Ashu wrap from toe to groin. Transferred to recovery in a stable condition. Tourniquet Time Not used Sponge/Needle Count Correct Fluid Count 1 L Electronically signed by Juan Casey MD 12/30/18 11:47 EDT Normal [facility] POC Glucose Randomon 019 Glucose [Mass/Vol] 374 mg/dL High 78-110 [facility] Comment on above: Performed By: #### C BC #### [address] [address] Glucose [Mass/Vol] 334 mg/dL High 78-110 [facility] Comment on above: Performed By: #### C BC #### [address] [address] Glucose [Mass/Vol] 141 mg/dL High 78-110 [facility] Comment on above: Performed By: #### C BC #### [address] [address] Glucose [Mass/Vol] 179 mg/dL High 78-110 [facility] Comment on above: Performed By: #### C [id number] #### [address] [address] C Urineon 12-10-2018 C Urine Final 20-30,000 cfu/ml Mixed gram positive ananth isolated. This urine contains 3 or more organisms which is inconsistent with clean catch collection. Consider the possibility of contamination during collection. No identification or susceptibility performed as results would be misleading Normal [facility] Comment on above: Performed By: #### U RC #### [address] [address] .UA Microscp Aon 12-08-2018 UA Mucus Present Abnormal Absent [facility] Comment on above: Performed By: #### C [id number] #### [address] [address] UA RBC Quant 0 /HPF Normal 0-5 [facility] Comment on above: Performed By: #### C [id number] #### [address] [address] UA Squepi Cells Quant 1 /HPF Normal 0-29 [facility] Comment on above: Performed By: #### C [id number] #### [address] [address] UA WBC Quant 1 /HPF Normal 0-5 [facility] Comment on above: Performed By: #### C [id number] #### [address] [address] .eGFRon 12-08-2018 eGFR Non-AA >60 Normal >=60 [facility] Comment on above: Result Comment: Resu lt = 0-14.9 mL/min/1.73 m2 Kidney failure or Dialysis Result = 15-29 mL/min/1.73 m2 Severe decrease in GFR Result = 30-59 mL/min/1.73 m2 Moderate decrease in GFR Result >= 60 mL/min/1.73 m2 Normal or increased GFR Chronic kidney disease is defined as either kidney damage or GFR < 60 mL/min/1.73 m2 for >= 3 months. Kidney damage is defined as pathologic abnormalities or markers of damage including abnormalities in blood or urine tests or imaging studies. This GFR is NOT used for medication dosing. Performed By: #### E GFR #### [address] [address] eGFR AA >60 Normal >=60 [facility] Comment on above: Result Comment: Resu lt = 0-14.9 mL/min/1.73 m2 Kidney failure or Dialysis Result = 15-29 mL/min/1.73 m2 Severe decrease in GFR Result = 30-59 mL/min/1.73 m2 Moderate decrease in GFR Result >= 60 mL/min/1.73 m2 Normal or increased GFR Performed By: #### E GFR #### [address] [address] CBC w/ Diffon 12-08-2018 Erythrocyte distribution wid th (RBC) [Ratio] 13.9 % Normal 11.6-14.8 [facility] Comment on above: Performed By: #### C BC #### [address] [address] Hematocrit (Bld) [Volume fraction] 39.7 % Normal 36.0-46.0 [facility] Comment on above: Performed By: #### C BC #### [address] [address] Hemoglobin (Bld) [Mass/Vol] 12.9 g/dL Normal 12.0-16. 0 [facility] Comment on above: Performed By: #### C BC #### [address] [address] MCH (RBC) [Entitic mass] 28.3 pg Normal 27.0-35.0 [facility] Comment on above: Performed By: #### C BC #### [address] [address] MCHC (RBC) [Mass/Vol] 32.5 % Normal 31.0-37.0 [facility] Comment on above: Performed By: #### C BC #### [address] [address] MCV (RBC) [Entitic vol] 87.1 fL Normal 80.0-100.0 [facility] Comment on above: Performed By: #### C BC #### [address] [address] Platelet mean volume (Bld) [Entitic vol] 8.2 fL Normal 6.7-10.6 [facility] Comment on above: Performed By: #### C BC #### [address] [address] Platelets (Bld) [#/Vol] 218 x10*3/mcL Normal 150-350 [facility] Comment on above: Performed By: #### C BC #### [address] [address] RBC (Bld) [#/Vol] 4.56 x10*6/mcL Normal 3.80-5.20 [facility] Comment on above: Performed By: #### C BC #### [address] [address] WBC (Bld) [#/Vol] 6.5 x10*3/mcL Normal 4.5-11.0 [facility] Comment on above: Performed By: #### C BC #### [address] [address] CMPon 12-08-2018 Albumin [Mass/Vol] 4.0 g/dL Normal 3.2-4.9 [facility] Comment on above: Result Comment: [facility] updated the methodology used for albumin testing on 05/13/18. Albumin measurement was performed using a bromcresol purple dye-binding assay. Performed By: #### C OMP #### [address] [address] Albumin/Globulin [Mass ratio] 1.1 {ratio} Normal 1.1-2 .2 [facility] Comment on above: Performed By: #### C OMP #### [address] [address] Alk Phos 58 IU/L Normal 32-91 [facility] Comment on above: Performed By: #### C OMP #### [address] [address] ALT [Catalytic activity/Vol] 18 U/L Normal 14-54 [facility] Comment on above: Performed By: #### C OMP #### [address] [place] [address] Anion gap [Moles/Vol] 15 mmol/L Normal 7-17 [facility] Comment on above: Performed By: #### C OMP #### [address] [address] AST [Catalytic activity/Vol] 20 U/L Normal 15-41 [facility] Comment on above: Performed By: #### C OMP #### [address] [address] Bili Total 0.6 mg/dL Normal 0.3-1.2 [facility] Comment on above: Performed By: #### C OMP #### [address] [address] Calcium [Mass/Vol] 9.2 mg/dL Normal 8.5-10.3 [facility] Comment on above: Performed By: #### C OMP #### [address] [address] Chloride [Moles/Vol] 100 mmol/L Normal 98-110 [facility] Comment on above: Performed By: #### C OMP #### [address] [address] CO2 [Moles/Vol] 25 mmol/L Normal 22-32 [facility] Comment on above: Performed By: #### C OMP #### [address] [address] Creatinine [Mass/Vol] 0.63 mg/dL Normal 0.44-1.03 [facility] Comment on above: Performed By: #### C OMP #### [address] [place] [address] Glucose [Mass/Vol] 156 mg/dL High 74-118 [facility] Comment on above: Performed By: #### C OMP #### [address] [address] Potassium [Moles/Vol] 4.0 mmol/L Normal 3.4-4.8 [facility] Comment on above: Performed By: #### C OMP #### [address] [address] Protein [Mass/Vol] 7.6 g/dL Normal 6.5-8.1 [facility] Comment on above: Performed By: #### C OMP #### [address] [address] Sodium [Moles/Vol] 136 mmol/L Normal 133-142 [facility] Comment on above: Performed By: #### C OMP #### [address] [address] Urea nitrogen [Mass/Vol] 16 mg/dL Normal 8-26 [facility] Comment on above: Performed By: #### C OMP #### [address] [address] Urea nitrogen/Creatinine [Ma ss ratio] 25.4 mg/mg High 10.0-20.0 [facility] Comment on above: Performed By: #### C OMP #### [address] [address] Diff Autoon 12-08-2018 Baso Absolute 0.0 x10*3/mcL Normal 0.0-0.2 [facility] Comment on above: Performed By: #### . Automated Diff #### [address] [address] Basophils/100 WBC (Bld) 0.8 % Normal 0.0-1.5 [facility] Comment on above: Performed By: #### . Automated Diff #### [address] [address] Eos Absolute 0.2 x10*3/mcL Normal 0.0-0.4 [facility] Comment on above: Performed By: #### . Automated Diff #### [address] [address] Eosinophils/100 WBC (Bld) 2.8 % Normal 0.0-5.4 [facility] Comment on above: Performed By: #### . Automated Diff #### [address] [address] Lymphocytes (Bld) [#/Vol] 2.1 x10*3/mcL Normal 1.0-4.8 [facility] Comment on above: Performed By: #### . Automated Diff #### [address] [address] Lymphocytes/100 WBC (Bld) 32.9 % Normal 27.2-40.8 [facility] Comment on above: Performed By: #### . Automated Diff #### [address] [address] Turner Absolute 0.7 x10*3/mcL Normal 0.1-1.1 [facility] Comment on above: Performed By: #### . Automated Diff #### [address] [address] Monocytes/100 WBC (Bld) 10.3 % Normal 3.7-11.9 [facility] Comment on above: Performed By: #### . Automated Diff #### [address] [address] Neutro Absolute 3.4 x10*3/mcL Normal 1.8-7.7 [facility] Comment on above: Performed By: #### . Automated Diff #### [address] [address] Neutro Auto 53.2 % Normal 47.2-70.8 [facility] Comment on above: Performed By: #### . Automated Diff #### [address] [address] ESRon 12-08-2018 ESR (Bld) [Velocity] 13 mm/h Normal 0-30 [facility] Comment on above: Performed By: #### E SR #### [address] [address] Hgb A1con 12-08-2018 HbA1c (Bld) [Mass fraction] 7.7 % A1c High 4.0-6.0 [facility] Comment on above: Performed By: #### H BA1C #### [address] [address] HbA1c (Bld) [Mass fraction] 174 mg/dL High 74-118 [facility] Comment on above: Result Comment: Math ematical Calc approx. The mean gluc equivalency of A1c Performed By: #### H BA1C #### [address] [address] UA Routine without Cultureon 12-08-2018 Color (U) Yellow Normal [facility] Comment on above: Performed By: #### C [id number] #### [address] [address] Glucose (U) [Mass/Vol] Negative Normal Negative [facility] Comment on above: Performed By: #### C [id number] #### [address] [address] Ketones Ql (U) Negative Normal Negative [facility] Comment on above: Performed By: #### C [id number] #### [address] [address] UA Blood Small Abnormal Negative [facility] Comment on above: Performed By: #### C [id number] #### [address] [address] UA Clarity Clear Normal [facility] Comment on above: Performed By: #### C [id number] #### [address] [address] UA Leukocyte Esterase Trace Abnormal Negative [facility] Comment on above: Performed By: #### C [id number] #### [address] [address] UA Nitrite Negative Normal Negative [facility] Comment on above: Performed By: #### C [id number] #### [address] [address] UA pH 5.0 Normal 4.5 - 7.8 [facility] Comment on above: Performed By: #### C [id number] #### [address] [place] [address] UA Protein Negative Normal Negative [facility] Comment on above: Performed By: #### C [id number] #### [address] [address] UA Spec Grav 1.018 Normal 1.003-1.03 5 [facility] Comment on above: Performed By: #### C [id number] #### [address] [address] UA Urobilinogen 0.2 mg/dL Normal 0.2 - 1.0 [facility] Comment on above: Performed By: #### C [id number] #### [address] [address] Urobilinogen Qn (U) Negative Normal Negative [facility] Comment on above: Performed By: #### C [id number] #### [address] [address] Vital Signs Date Time Vital Sign Value Performing Clinician Facility 05-29-2022 14:30-0400 Body height 162.56 cm Krishan Madrid Other [facility] [employer] Other 05-29-2022 14:30-0400 Body mass index (BMI) [Ratio] 35.36 kg/m2 Krishan Madrid Other [facility] [employer] Other 05-29-2022 14:30-0400 Body weight 93.44 kg Krishan Madrid Other [employer] Other 04-03-2021 10:30-0400 Diastolic blood pressure 66 mm[Hg] Jairo Fisher MD Work Phone: [employer] Work Phone: 04-03-2021 10:30-0400 Heart rate 75 /min Jairo Fisher MD Work Phone: [employer] Work Phone: 04-03-2021 10:30-0400 Respiratory rate 18 /min Jairo Fisher MD Work Phone: [employer] Work Phone: 04-03-2021 10:30-0400 SaO2% (BldA) [Mass fraction] 94 % Jairo Fisher MD Work Phone: [employer] Work Phone: 04-03-2021 10:30-0400 Systolic blood pressure 118 mm[Hg] Jairo Fisher MD Work Phone: [employer] Work Phone: 04-03-2021 10:09-0400 Body temperature 97.39 [degF] Jairo Fisher MD Work Phone: [employer] Work Phone: 04-03-2021 08:45-0400 Body mass index (BMI) [Ratio] 36.05 kg/m2 Jairo Fisher MD Work Phone: [employer] Work Phone: 04-03-2021 08:45-0400 Body weight 95.25 kg Jairo Fisher MD Work Phone: [employer] Work Phone: 03-13-2021 14:25-0400 Body height 162.6 cm Jairo Fisher MD Work Phone: [employer] Work Phone: Encounters Encounter Date Encounter Type Care Provider Facility Start: 10-26-2023 End: 10-27-2023 Emergency department patient visit JENI CATALAN [facility] Start: 10-21-2023 End: 10-21-2023 ambulatory KAYLA FORMAN Not Available Start: 09-28-2023 End: 09-29-2023 Emergency department patient visit BRUCE GODWIN [facility] Start: 09-28-2023 End: 09-28-2023 Emergency department patient visit GLORIA TAYLOR [facility] Start: 09-24-2023 End: 09-25-2023 Emergency department patient visit HERMILO CUMMINGS [facility] Start: 05-15-2023 End: 05-16-2023 ambulatory HANNAH Ponce [facility] Start: 01-05-2023 End: 01-05-[address] LARISA WORRELL . Facility:[facility] Start: 05-29-2022 End: 05-29-2022 ambulatory Krishan Madrid Other [facility] [employer] Other Start: 05-29-2022 Office outpatient vi sit 15 minutes Krishan Madrid [facility] Start: 04-18-2022 End: 04-18-2022 Subsequent hospital visit by physician Gloria Taylor DO Work Phone: [facility] Start: 04-10-2022 End: 04-11-[address] MOSS MISC Facility:[facility] Start: 03-26-[address] MOSS MISC Facility :[facility] Start: 02-11-2022 End: 02-12-[address] MOSS MISC Facility:[facility] Start: 04-03-2021 End: 04-03-2021 Subsequent hospital visit by physician Jairo Fisher MD Work Phone: [facility] OR Start: 09-07-2020 End: 09-07-2020 [facility] Start: 12-06-2019 End: 12-06-2019 Subsequent hospital visit by physician Jeni Antonio [facility] Laboratory Comment on above: Encounter for well w domonique exam with routine gynecological exam Start: 07-14-2019 End: 07-15-2019 Evaluation and management of inpatient JUAN CASEY Facility:[facility] Start: 07-02-2019 End: 07-03-2019 Patient encounter procedure JUAN CASEY Facility:[facility] Start: 12-30-2018 End: 12-31-2018 Patient encounter procedure JUAN CASEY Facility:[facility] Start: 12-08-2018 End: 12-09-2018 Patient encounter procedure JUAN CASEY Facility:[facility] Start: 12-22-2017 End: 12-23-2017 Ambulatory DEFAULT PHYSICIAN Facility:[facility] Start: 07-19-2013 End: 05-04-2020 Patient encounter status Jairo Fisher MD Work Phone: [employer] Procedures Date Procedure Procedure Detail Performing Clinician Start: 04-03-2021 End: 04-03-2021 Colonoscopy Jairo Fisher MD Work Phone: Start: 04-03-2021 Esophagogastroduodenoscopy Jairo matos MD Work Phone: Start: 09-07-2020 Dual energy X-ray photon absorptiometry STAFF, NON Start: 12-21-2012 History of operative procedure on knee S/P right unicompartmental knee replacement Jairo Fisher MD Work Phone: Plan of Treatment Date Care Activity Detail Author Start: 06-14-2026 DTaP/Tdap/Td vaccine (2 - Tdap) DTaP/Tdap/Td vaccine (2 - Tdap) [employer] Start: 04-03-2026 Screening for malignant neoplasm of colon [facility] Start: 06-06-2022 Influenza vaccination Flu vaccine (#1) [facility] Start: 04-04-2022 Depression Screen Depression Screen [employer] Start: 03-15-2022 Screening for malignant neoplasm of breast Breast cancer screen [employer] Start: 06-06-2021 Influenza vaccination Flu vaccine (Season Ended) [employer] Work Phone: Start: 04-14-2021 Diabetic retinal exam Diabetic retinal exam [facility] Phone: Comment on above: Postponed from 01/11/1960 (Not Indicated ) Start: 04-10-2021 End: 04-10-2021 Patient encounter procedure 04/10/2021 Office Visit General Surgery aJiro Fisher MD [address] [place] [address] [phone] [facility] GENERAL SURGERY [facility] Start: 04-04-2021 End: 04-04-2021 Patient encounter procedure 04/04/2021 Office Visit Obstetrics and Gynecology Inderjit Garcia MD [address] [place] [address] [address] [place] [address] [phone] [facility] OBSTETRICS & [facility]YNECOLOGY Start: 04-04-2021 Annual Wellness Visit (AWV) Annual Wellness Visit (AWV) [facility] Phone: Comment on above: Postponed from 03/28/2019 (Not Indicated ) Start: 04-04-2021 Creatinine measurement Creatinine monitoring [facility] Phone: Comment on above: Postponed from 11/19/2018 (Not Indicated ) Start: 04-04-2021 Diabetic foot examination Diabetic foot exam [facility] Phone: Comment on above: Postponed from 01/11/1960 (Not Indicated ) Start: 04-04-2021 Diabetic microalbuminuria test Diabetic microalbuminuria test [facility] Phone: Comment on above: Postponed from 01/11/1968 (Not Indicated ) Start: 04-04-2021 Hemoglobin A1c measurement A1C test (Diabetic or Prediabetic) [facility] Phone: Comment on above: Postponed from 01/11/1960 (Not Indicated ) Start: 04-04-2021 Lipid panel Lipid screen [facility] Phone: Comment on above: Postponed from 01/11/1960 (Not Indicated ) Start: 04-04-2021 Potassium monitoring Potassium monitoring [facility] Phone: Comment on above: Postponed from 11/19/2018 (Not Indicated ) Start: 03-15-2020 Colon cancer screen colonoscopy Colon cancer screen colonoscopy [employer] Start: 03-28-2019 Annual Wellness Visit (AWV) Annual Wellness Visit (AWV) [facility] Start: 11-19-2018 Creatinine monitoring Creatinine monitoring [facility] Start: 11-19-2018 Potassium monitoring Potassium monitoring [place], [place] Start: 10-11-2017 Breast cancer screen Breast cancer screen [place] Start: 07-14-2017 Pneumococcal 65+ years Vaccine (2 of 2 - PPSV23) Pneumococcal 65+ years Vaccine (2 of 2 - PPSV23) [place] Start: 09-08-2015 Shingles Vaccine (2 of 3) Shingles Vaccine (2 of 3) [place], [place] Start: 2015 DEXA (modify frequency per FRAX score) DEXA (modify frequency per FRAX score) [place] Start: 2005 Screening for osteoporosis DEXA (modify frequency per FRAX score) [facility] Start: 1995 Screening for malignant neoplasm of colon [facility] Start: 1969 Hepatitis B vaccine (1 of 3 - Risk 3-dose series) Hepatitis B vaccine (1 of 3 - Risk 3-dose series) [place] Start: 01-11-1968 Diabetic microalbuminuria test Diabetic microalbuminuria test [place] Start: 01-11-1968 Diabetic retinal exam Diabetic retinal exam [facility] Start: 01-11-1968 Hepatitis C screening Hepatitis C screen [facility] Start: 01-11-1968 Urine screening for protein Diabetic microalbuminuria test [facility] Start: 1962 COVID-19 Vaccine (1) COVID-19 Vaccine (1) [facility] Work Phone: Start: 01-11-1960 [object Object] Diabetic foot exam [place] Start: 01-11-1960 A1C test (Diabetic or Prediabetic) A1C test (Diabetic or Prediabetic) [place] Start: 01-11-1960 Diabetic foot examination Diabetic foot exam [facility] Start: 01-11-1960 Diabetic retinal exam Diabetic retinal exam [place], [place] Start: 01-11-1960 Hemoglobin A1c measurement A1C test (Diabetic or Prediabetic) [facility] Start: 01-11-1960 Lipid panel Lipids [facility] Start: 01-11-1960 Lipid screen Lipid screen [place] Start: 1955 COVID-19 Vaccine (1) COVID-19 Vaccine (1) [facility] Start: 1950 Annual Wellness Visit (AWV) Annual Wellness Visit (AWV) [facility] Start: 1950 Hepatitis C screen Hepatitis C screen [place], [place] Start: 1950 Hepatitis C screening Hepatitis C screen [facility] Phone: End: 12-06-2019 Cytopathology procedure, preparation of smear, genital source [facility] Routine Encounter for well woman exam with routine gynecological exam 1 Occurrences starting 12/06/2019 until 12/06/2019 [facility] [place] Comment on above: 1 Occurrences starting 12/06/2019 until 12/06/2019 End: 04-03-2021 Glucose [Mass/volume] in Serum or Plasma POCT glucose Point of Care Testing STAT One Time for 1 Occurrences starting 04/03/2021 until 04/03/2021 [facility] Phone: Comment on above: One Time for 1 Occurrences starting 03/07 until 04/03/2021 [facility]. [facility]ORI [employer] Phone: Comment on above: Release Upon Ordering for 1 Occurrences starting 04/03/2021 End: 04-03-2021 Protime-INR Protime-INR Lab STAT One Time for 1 Occurrences starting 04/03/2021 until 04/03/2021 [facility] Phone: Comment on above: One Time for 1 Occurrences starting 03/07 until 04/03/2021 Surgical Pathology Surgical Path ology Lab Routine Release Upon Ordering for 1 Occurrences starting 04/03/2021 [facility] Phone: Comment on above: Release Upon Ordering for 1 Occurrences starting 04/03/2021 Immunizations Immunization Date Immunization Notes Care Provider Rhea peguero 07-14-2016 pneumococcal conjuga te vaccine, 13 valent Jeni Antonio [facility] 06-14-2016 diphtheria, tetanus toxoids and acellular pertussis vaccine Jeni Antonio [place], [place] 07-14-2015 zoster vaccine, live Jeni Antonio [place] Payers Date Payer Category Payer Medicare [id number] 2019 Medicare MEDICARE MEDICAR E PART A AND B xxxxxxxxxxx 2019-Present [phone] [place] [address] xxxxxxxxxxx [id number] 2019 Medicare 2018 Unknown 1959 Medicare [id number] 1950 Unknown [id number] [id number]6 1950 Unknown [id number] 2.16.840.1.608477.3.579.2.196 1950 Unknown [id number] 2.16.840.1.416295.3.579.2.196 1950 Unknown [id number] 2.16.840.1.157860.3.579.2.196 1950 Unknown [id number] 2.16.840.1.365547.3.579.2.593 1950 Unknown [id number] 2.16.840.1.399541.3.579.2.593 1950 Unknown [id number] 2.16.840.1.351642.3.579.2.593 1950 Unknown [id number] 2.16.840.1.105894.3.579.2.593 1950 Unknown [id number] 2.16.840.1.706231.3.579.2.173 1950 Unknown [id number] 2.16.840.1.989534.3.579.2.125 9 1950 Unknown [id number] 2.16.840.1.342726.3.579.2.128 6 1950 Unknown [id number] 2.16.840.1.958921.3.579.2.128 6 1950 Unknown [id number] 2.16.840.1.444770.3.579.2.128 6 1950 Unknown [id number] 2.16.840.1.855418.3.579.2.128 6 1950 Unknown [id number] 2.16.840.1.919311.3.579.2.128 6 1950 Unknown [id number] 2.16.840.1.860285.3.579.2.128 6 1950 Unknown [id number] 2.16.840.1.583505.3.579.2.128 6 1950 Unknown [id number] 2.16.840.1.014422.3.579.2.128 6 Medicaid Self Pay [id number] Self-pay Self Pay [id number] Unknown Self Pay [id number] Social History Date Type Detail Facility Start: 11-23-2012 End: 12-06-2019 Tobacco smoking status NHIS Never smoker [place] Start: 12-06-2019 End: 04-18-2022 Alcohol intake Current non-drinker of alcohol (finding) [place], [place] Start: 1950 Sex Assigned At Not on file [place], [place] Start: 1950 Sex Assigned At Female F [facility] Start: 11-23-2012 End: 04-03-2021 Tobacco use and exposure Never used [facility] Exposure to SARS-CoV-2 (event) Not sure [facility] Sex Assigned At Sex Assigned At [facility] Other Goals Date Patient Goal Desired Activity /State Evaluation note 05-29-2022 Note Date & Type Note Facility 05-29-2022 Evaluation note Encounter Date Diagnosis Assessment Notes May, Spinal stenosis of lumbar region with neurogenic claudication (ICD-10 - M48.062) May, Spondylolisthes is, 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 Ultimately surgical intervention would be an instrumented lumbar fusion which seems excessive for the amount of symptoms that she has. Her study is now 2 years old so she had increasing symptoms. She would need to have a repeat evaluation with plain x-rays flexion-extensi on views and lumbar MRI.It just does not seemed warranted at this time.We will see her back on an as-needed basis or is symptoms worsen. [place] Other History of Present illness Narrative 04-03-2021 Rimma Monroe RN - 04/03/2021 10:48 AM EDT Note Date & Type Note Facility 04-03-2021 History of Present illness Narrative Dr. Fisher spoke with pt and . Discharge instructions given to pt and .Discharge Criteria Inpatients must meet Criteria 1 through 7. All other patients are either YES or N/A. If a NO is chosen then Anesthesia or Surgeon must be notified. 1. Minimum 30 minutes after last dose of sedative medication, minimum 120 minutes after last dose of reversal agent. Yes 2. Systolic BP stable within 20 mmHg for 30 minutes & systolic BP between 90 & 180 or within 10 mmHg of baseline. Yes 3. Pulse between 60 and 100 or within 10 bpm of baseline. Yes 4. Spontaneous respiratory rate >/= 10 per minute. Yes 5. SaO2 >/= 95 or >/= baseline. Yes 6. Able to cough and swallow or return to baseline function. Yes 7. Alert and oriented or return to baseline mental status. Yes 8. Demonstrates controlled, coordinated movements, ambulates with steady gait, or return to baseline activity function. Yes 9. Minimal or no pain or nausea, or at a level tolerable and acceptable to patient. Yes 10. Takes and retains oral fluids as allowed. Yes 11. Procedural / perioperative site stable. Minimal or no bleeding. Yes 12. If GI endoscopy procedure, minimal or no abdominal distention or passing flatus. Yes 13. Written discharge instructions and emergency telephone number provided. Yes 14. Accompanied by a responsible adult. Yes documented in this encounter [facility] Phone: Evaluation note Note Date & Type Note Facility Evaluation note Diagnosis GERD (gastroesophageal reflux disease)- Primary Esophageal reflux documented in this encounter [facility] Phone: History general Narrative - Reported Note Date & Type Note Facility History general Narrative - Reported Type Medical History GERD Medical History HTN Medical History history of DVT Surgical History LIPOMA Surgical History ventral hernia 2016,2017 Surgical History right incisional hernia Surgical History RT KNEE REPLACEMENT Surgical History HERNIA REPAIR Surgical History lap choley Surgical History CHOLECYSTECTOMY Surgical History lipoma back Surgical History right total knee replacement Surgical History hysterectomy Hospitalization History See Sx [facility] Other Hospital Discharge instructions Instructions Note Date & Type Note Facility Hospital Discharge instructions Rimma Mornoe RN - 04/03/2021 COLONOSCOPY DISCHARGE INSTRUCTIONS: It's normal to have a feeling of fullness or mild cramping in your abdomen afterwards due to air that is put into your bowel during the procedure. Mild activities such as walking will help you pass the air. You may resume your regular diet. ENDOSCOPY DISCHARGE INSTRUCTIONS: You may have a mild sore throat; this should get better over the next day or two. Sipping warm liquids, a salt-water gargle or throat lozenges may be used. You may have some belching or a feeling of fullness in your abdomen. This is from air that was put into your stomach during the procedure. This should pass in a few hours. May resume your regular diet. You will receive a letter or phone call with your test results in 2 weeks. If you have not received a letter or a phone call in 2 weeks please call the office for your results. CALL THE DOCTOR IF YOU HAVE: Chest pain or trouble breathing. A hoarse voice or trouble swallowing Bleeding, vomiting or spitting up of blood that is more than a few streaks or red or black stools A fever above 101F or if you have chills Pain that is worse or different than any pain you had before the procedure Nausea or vomiting that lasts for more than 2 hours. If symptoms are to severe call 911 or go to the nearest Emergency Room. documented in this encounter [facility] [id number] Phone: Summary Purpose Family History No Family History Records FoundNo Family History Records FoundNo Family History Records FoundNo Family History Records FoundNo Family History Records FoundNo Family History Records FoundNo Family History Records Found Advance Directives No Advanced Directives Records FoundDocuments on File Type Date Recorded Patient Public Records Officer Expl anation Advance Directives and Living Will Power of Counter Clerk [employer] Latest Code Status on File Code Status Date Activated Date Inactivated Comments Full Code 12/21/2012 12:14 PM 12/24/2012 4:06 PM Advance Directive Response Recorded Date/ Time Advance Directives No August 11:18am Documents on File Type Date Recorded Patient Public Records Officer Expl anation ACP-Advance Directive ACP-Power of Counter Clerk [employer] Latest Code Status on File Code Status Date Activated Date Inactivated Comments Full Code 04/03/2021 8:29 AM Full Code 12/21/2012 12:14 PM 12/24/2012 4:06 PM Documents on File Type Date Recorded Patient Public Records Officer Expl anation ACP-Advance Directive ACP-Power of Counter Clerk [employer] Latest Code Status on File Code Status Date Activated Date Inactivated Comments Full Code 04/03/2021 8:29 AM 04/03/2021 1:01 PM Full Code 12/21/2012 12:14 PM 12/24/2012 4:06 PM Hospital Course Note Admission Information She is a 68-year-old female with advanced left knee DJD. After discussion of risks as well as benefits she did request proceed with operative intervention for left total knee arthroplasty. Hospital Course Patient was admitted to the hospital and underwent left total knee arthroplasty on 12/30/2018. She tolerated the procedure well. Postoperatively she did well. Hemovac drain was removed without complication. She did have some soreness in the calf region and because of this a duplex ultrasound was ordered which was negative. She is ambulating well has reasonable pain control is being discharged home postoperative day #1. Medications Home lisinopril 40 mg oral tablet, 40 mg, 1 tabs, Oral, qAM meclizine 12.5 mg oral tablet, 12.5 mg, 1 tabs, Oral, Daily, PRN metFORMIN 500 mg oral tablet, extended release, 500 mg, 1 tabs, Oral, BID omeprazole 20 mg oral delayed release capsule, 20 mg, 1 caps, Oral, qAM Tylenol 8 HR Arthritis Pain 650 mg oral tablet, extended release, (more content not included)... Note Admission Information Allie monroe was admitted for degenerative arthritis of the left hip Hospital Course She was taken surgery. Left total hip was performed. Patient tolerated procedure well. She is working with physical therapy. She is complaining of some low back pain which is a chronic problem for her. Plan will be to discharge the patient home was afternoon. She will be seen back in the office in a week. Significant Findings Degenerative arthritis left hip Medications Home lisinopril 40 mg oral tablet, 40 mg, 1 tabs, Oral, qAM meclizine 12.5 mg oral tablet, 12.5 mg, 1 tabs, Oral, Daily, PRN metFORMIN 500 mg oral tablet, extended release, 500 mg, 1 tabs, Oral, BID omeprazole 20 mg oral delayed release capsule, 20 mg, 1 caps, Oral, Daily, PRN sulfamethoxazole-trimethoprim 800 mg-160 mg oral tablet, 1 tabs, Oral, q12hr Tylenol 8 HR Arthritis Pain 650 mg oral tablet, extended release, 1300 mg, 2 tabs, Oral, q8hr, PRN Prescriptions [place] 5 mg-325 mg oral tablet, 1 tabs, Oral, q6hr, PRN Xa (more content not included)... Assessments Diagnosis Encounter for well woman exam with routine gynecological exam Chief Complaint and Reason for Visit Chief Complaint z78.0 Additional Source Comments INFORMATION SOURCE (unrecogn ized section and content) DATE CREATED AUTHOR 03/27/2018 [facility] DATE CREATED AUTHOR AUTHOR'S ORGANIZ ATION 09/21/2019 [facility] DATE CREATED AUTHOR AUTHOR'S ORGANIZ ATION 01/08/2023 [facility] DATE CREATED AUTHOR AUTHOR'S ORGANIZ ATION 03/17/2023 [facility] dical Specialist DATE CREATED AUTHOR AUTHOR'S ORGANIZ ATION 05/17/2023 Rosario Metzger [facility] DATE CREATED AUTHOR AUTHOR'S ORGANIZ ATION 10/22/2023 [facility] dical Specialists [facility] DATE CREATED AUTHOR AUTHOR'S ORGANIZ ATION 10/27/2023 [facility] Reason for Visit (unrecogniz ed section and content) Status Reason Specialty Diagnoses / Procedures Re ferred By Contact Referred To Contact Diagnoses Symptoms of gastroesophageal reflux Constipation REFLUX SYMPTOMS, CONSTIPATION Procedures NV COLONOSCOPY FLX DX W/COLLJ SPEC WHEN PFRMD NV ESOPHAGOGASTRODUODENOSCOPY TRANSORAL DIAGNOSTIC COLONOSCOPY DIAGNOSTIC EGD ESOPHAGOGASTRODUODENOSCOPY Jairo Fisher MD [address] [place] [id number] [facility] Ordered Prescriptions (unrec ognized section and content) Prescription Sig Dispensed Refills Start Date End Da te sucralfate (CARAFATE) 1 GM/10ML suspension Take 10 mLs by mouth 4 times daily Substitute 1 g Carafate tablets and instruct patient how to create slurry at home, if financially advantageous to patient. 420 mL 1 04/03/2021 Scheduled Active and Recently Administ ered Medications (unrecognized section and content) Medication Order 04/01/2021 04/02/2021 04/03/2021 sodium chloride flush 0.9 % injection 5-40 mL 5-40 mL, Intravenous, EVERY 12 HOURS SCHEDULED (2 times per day), First dose on Fri04/03/21 at 0900, For Line Patency: Peripheral IV = 5 mL; Midline or Central Line = 10 mL/lumen. If following IV push medication, administer flush at same rate as the IV push. Flush volume is determined by type of infusion therapy being given. For non-viscous solutions use: Peripheral IV = 5 mL Midline or Central Line = 10 mL/lumen For viscous solutions (i.e. blood components, parenteral nutrition, contrast media, or after obtaining blood sample) use: Peripheral IV = 10 mL Midline or Central Line = 20 mL/lumen, Pre-procedure(GI) 0900 (Due)2100 (Due) Continuous Medication Order 04/01/2021 04/02/2021 04/03/2021 lactated ringers infusion Intravenous, at 125 mL/hr, CONTINUOUS, Starting on Fri04/03/21 at 0845, Pre-procedure(GI) 0924 (New Bag - Prov ider: Radha Adamson APRN - HOME IMPROVEMENT ADVISOR)1002 (Stopped - Provider: Radha Adamson APRN - STACY)1035 (Stopped - Provider: Rimma Monroe RN) PRN Medication Order 04/01/2021 04/02/2021 04/03/2021 sodium chloride flush 0.9 % injection 5-40 mL 5-40 mL, Intravenous, PRN, Line Care, After every IV line use, Starting on Fri04/03/21 at 0829, For Line Patency: Peripheral IV = 5 mL; Midline or Central Line = 10 mL/lumen. If following IV push medication, administer flush at same rate as the IV push. Flush volume is determined by type of infusion therapy being given. For non-viscous solutions use: Peripheral IV = 5 mL Midline or Central Line = 10 mL/lumen For viscous solutions (i.e. blood components, parenteral nutrition, contrast media, or after obtaining blood sample) use: Peripheral IV = 10 mL Midline or Central Line = 20 mL/lumen, Pre-procedure(GI) Care Teams (unrecognized sec tion and content) Fire Safety Manager Relationship Specialty Start Date End Date StephanierosibelGloria DO [address] [place] [address] PCP - General Family Medicine 05/09/21 FOR RECORDS PERTAINING TO PATIENTS WHO ARE OR HAVE BEEN ENROLLED IN A CHEMICAL DEPENDENCY/SUBSTANCEABUSE PROGRAM, SOME INFORMATION MAY BE OMITTED. This clinical summary was aggregated from multiple sources. Caution should be exercised in using it in the provision of clinical care. This summary normalizes information from multiple sources, and as a consequence, information in this document may materially change the coding, format and clinical context of patient data. In addition, data may be omitted in some cases. CLINICAL DECISIONS SHOULD BE BASED ON THE PRIMARY CLINICAL RECORDS. [email or web address] provides no warranty or guarantee of the accuracy or completeness of information in this document.
[2023-10-31 11:56] VITALS: BP 161/98; PULSE 87; RESP 16; TEMP 36.4; O2SAT 96; BMI 32.6
--- NOTE | 2023-10-31 12:36 | CT_ITS ---
[facility] [address] [place], [place] [address] Patient Name: MARI JAMISON MRN: [id number] date: 1950 Sex: F Assigned Patient Location: ER Current Patient Location: ER Accession/Order Number: [id number] Exam Date: 10/31/2023 13:30 Report Date: 10/31/2023 14:06 At the request of: DESIREE CORTEZ Procedure: CT chest w con EXAMINATION: CT chest w con HISTORY: fall, injury, negative x-rays at another facility COMPARISON: No relevant comparison available. TECHNIQUE: Multi-planar CT images were created with IV contrast. Axial, Coronal, and Sagittal images. Dose reduction techniques were achieved by using automated exposure control and/or adjustment of mA and/or kV according to patient size and/or use of iterative reconstruction technique. FINDINGS: LUNGS: Scattered punctate pulmonary nodules measuring up to 4 mm. Linear opacities in the lung bases, atelectasis and/or scar is favored. PLEURA: No mass, effusion, or pneumothorax. VASCULATURE: No abnormality. ROGELIO: No mass or adenopathy. MEDIASTINUM: No mass or adenopathy. CARDIAC: No enlargement, pericardial thickening, or significant calcification. AORTA: No aneurysm or dissection. CHEST WALL: No mass or axillary adenopathy. BONES: No bone lesion or fracture. Moderate degenerative changes with exaggerated thoracic kyphosis LIMITED ABDOMEN: Diffuse hypoattenuation the liver, hepatic steatosis. Surgical clips from cholecystectomy OTHER: Negative. CT/CT chest w con IMPRESSION: No acute traumatic abnormality Electronically authenticated by: LINDY GARCIA Date: 10/31/2023 14:06
[2023-10-31 12:57] LABS: Basophils Absolute Auto 0.1 10^3/uL (0.0-0.1); Basophils Percent Auto 0.8 % (0.2-2.0); Eosinophils Absolute Auto 0.2 10^3/uL (0.0-0.7); Eosinophils Percent Auto 2.5 % (0.9-7.0); Hematocrit 40.6 % (36.0-48.0); Hemoglobin 13.4 g/dL (12.0-16.0); Immature Granulocytes Abs Auto 0.02 10^3/uL (0.00-0.03); Immature Granulocytes Pct Auto 0.3 % (0.0-0.5); Lymphocytes Absolute Auto 2.1 10^3/uL (1.2-3.8); Lymphocytes Percent Auto 35.4 % (20.5-60.0); Mean Corpuscular Hemoglobin 28.7 pg (26.7-34.0); Mean Corpuscular Volume 86.9 fL (81.0-99.0); Mean Platelet Volume 10.4 fL (9.5-13.5); Monocytes Absolute Auto 0.5 10^3/uL (0.3-0.8); Monocytes Percent Auto 8.7 % (1.7-12.0); Neutrophils Absolute Auto 3.1 10^3/uL (1.4-6.5); Neutrophils Percent Auto 52.3 % (43.0-75.0); Platelet Count 226 10^3/uL (150-450); Red Blood Count 4.67 10^6/uL (4.20-5.40); Red Cell Distribution Width 13.2 % (11.0-15.0)
[2023-10-31] MEDS: KETOROLAC TROMETHAMINE 30 MG/ML VIAL IVP (13:06)
[2023-10-31 13:09] LABS: Anion Gap 11.9; BUN Creatinine Ratio 23.3; Calcium 9.6 mg/dL (8.5-10.1); Carbon Dioxide 29.7 mmol/L (21.0-32.0); Chloride 101 mmol/L (98-107); Estimated GFR (African America >60 (>=60); Estimated GFR (Non-African Ame >60 (>=60); Glucose 188 mg/dL (74-106); Potassium 4.6 mmol/L (3.5-5.1); Sodium 138 mmol/L (136-145)
--- NOTE | 2023-10-31 13:58 | ED.GENADUL1 ---
HPI - General Adult General Chief complaint: Chest Pain Stated complaint: R SIDE PAIN Time Seen by Provider: 10/31/23 12:30 Source: patient Mode of arrival: walk-in Limitations: other Limitations comment: [facility] History of Present Illness HPI narrative: 73-year-old female presents for right rib pain. She fell about a week ago and had negative x-rays at another hospital emergency department. She's had continued pain. She's been taking a muscle relaxer from her PCP. No new injury. She points to the area just inferior to her right breast indicate area of pain. It's moderate and worse when she pushes on it. No fever or productive cough or abdominal pain. Related Data Home Medications Medication Instructions Recorded Confirmed atorvastatin 20 mg tablet 20 mg PO DAILY 10/31/23 10/31/23 carvedilol 25 mg tablet 25 mg PO BID 10/31/23 10/31/23 lisinopril 40 mg tablet 40 mg PO DAILY 10/31/23 10/31/23 metformin 500 mg tablet 500 mg PO BID 10/31/23 10/31/23 Previous Rx's Medication Instructions Recorded benzonatate 200 mg capsule 200 mg PO TID PRN cough #15 caps 09/21/23 doxycycline hyclate 100 mg capsule 100 mg PO BID 10 days #20 caps 09/21/23 etodolac 400 mg tablet 400 mg PO Q12H PRN pain #20 tabs 10/31/23 Allergies Allergy/AdvReac Type Severity Reaction Status Date / Time honey Allergy Severe Verified 09/21/23 15:02 Penicillins Allergy Severe Verified 09/21/23 15:02 Review of Systems ROS Narrative A ten point review of systems is negative except as noted above. PFSH PFS Social History Smoking status: Never smoker Exam Narrative Exam Narrative: Nurses note and vital signs reviewed and patient is not hypoxic. General: The patient appears well and in no apparent distress. Patient is resting comfortably on cart. Skin: Warm, dry, no pallor noted. There is no rash noted. Head: Normocephalic, atraumatic Eye: Normal conjunctiva, no drainage Ears, Nose, Mouth, and Throat: oral mucosa is moist. Nares patent. Cardiovascular: Regular Rate and Rhythm Respiratory: Patient is in no distress, no accessory muscle use, lungs are clear to auscultation, no wheezing, rales or rhonchi. sshe has palpable tenderness to the right lower anterior lateral rib region without crepitus bruise mass or abrasion. Back: non-tender GI: soft and nontender including the right upper quadrant. Musculoskeletal: The patient has no evidence of calf tenderness, no pitting edema, symmetrical pulses noted bilaterally Neurological: A&O, normal speech Psychiatric: Cooperative Constitutional Vital Signs, click to edit/add: Last Vital Signs Temp 97.6 F 10/31/23 11:56 Pulse 87 10/31/23 11:56 Resp 16 10/31/23 11:56 BP 161/98 H 10/31/23 11:56 Pulse Ox 96 10/31/23 11:56 O2 Del Method Room Air 10/31/23 11:56 Course Vital Signs Vital signs: Vital Signs Temperature 97.6 F 10/31/23 11:56 Pulse Rate 87 10/31/23 11:56 Respiratory Rate 16 10/31/23 11:56 Blood Pressure 161/98 H 10/31/23 11:56 Pulse Oximetry 96 10/31/23 11:56 Oxygen Delivery Method Room Air 10/31/23 11:56 Temperature 97.6 F 10/31/23 11:56 Pulse Rate 87 10/31/23 11:56 Respiratory Rate 16 10/31/23 11:56 Blood Pressure 161/98 H 10/31/23 11:56 Pulse Oximetry 96 10/31/23 11:56 Oxygen Delivery Method Room Air 10/31/23 11:56 Medical Decision Making [facility] Narrative Medical decision making narrative: CAT scan shows no acute findings and findings are discussed with the patient. Treatment diagnosis and follow-up were discussed with the patient Differential Diagnosis Differential Diagnosis: chest contusion, rib fracture, pneumothorax, pulmonary contusion Lab Data Lab results reviewed: Yes I reviewed the patient's lab results Labs: Lab Results 10/31/23 Range/Units 12:49 WBC 6.0 (4.0-11.0) 10^3/uL RBC 4.67 (4.20-5.40) 10^6/uL Hgb 13.4 (12.0-16.0) g/dL Hct 40.6 (36.0-48.0) % MCV 86.9 (81.0-99.0) fL MCH 28.7 (26.7-34.0) pg MCHC 33.0 (29.9-35.2) g/dL RDW 13.2 (11.0-15.0) % Plt Count 226 (150-450) 10^3/uL MPV 10.4 (9.5-13.5) fL Neut % (Auto) 52.3 (43.0-75.0) % Lymph % (Auto) 35.4 (20.5-60.0) % Bee % (Auto) 8.7 (1.7-12.0) % Eos % (Auto) 2.5 (0.9-7.0) % Baso % (Auto) 0.8 (0.2-2.0) % Neut # (Auto) 3.1 (1.4-6.5) 10^3/uL Lymph # (Auto) 2.1 (1.2-3.8) 10^3/uL Bee # (Auto) 0.5 (0.3-0.8) 10^3/uL Eos # (Auto) 0.2 (0.0-0.7) 10^3/uL Baso # (Auto) 0.1 (0.0-0.1) 10^3/uL Abs Immat Gran (auto) 0.02 (0.00-0.03) 10^3/uL Imm/Tot Granulo (auto) 0.3 (0.0-0.5) % Sodium 138 (136-145) mmol/L Potassium 4.6 (3.5-5.1) mmol/L Chloride 101 (98-107) mmol/L Carbon Dioxide 29.7 (21.0-32.0) mmol/L Anion Gap 11.9 BUN 17.0 (7.0-18.0) mg/dL Creatinine 0.73 (0.55-1.02) mg/dL Est GFR ( Amer) >60 (>=60) Est GFR (Non-Af Amer) >60 (>=60) BUN/Creatinine Ratio 23.3 Glucose 188 H (74-106) mg/dL Calcium 9.6 (8.5-10.1) mg/dL Imaging Data CT scan - chest: Radiologist's impression: ITS Impressions Chest CT 10/31/23 12:36 IMPRESSION: No acute traumatic abnormality Electronically authenticated by: LINDY GARCIA Date: 10/31/2023 14:06 Discharge Plan Discharge Chief Complaint: Chest Pain Clinical Impression: Chest wall contusion Patient Disposition: Home, Self-Care Time of Disposition Decision: 14:37 Condition: Good Mode of Transportation: Private Vehicle Prescriptions / Home Meds: New etodolac 400 mg tablet 400 mg PO Q12H PRN (Reason: pain) Qty: 20 0RF No Action benzonatate 200 mg capsule 200 mg PO TID PRN (Reason: cough) Qty: 15 0RF doxycycline hyclate 100 mg capsule 100 mg PO BID 10 Days Qty: 20 0RF metformin 500 mg tablet 500 mg PO BID lisinopril 40 mg tablet 40 mg PO DAILY atorvastatin 20 mg tablet 20 mg PO DAILY carvedilol 25 mg tablet 25 mg PO BID Instructions: Rib Contusion (ED) Stand Alone Forms: Portal Instructions Referrals: Gloria Omalley [Primary Care Provider] - 1 week
[2023-10-31 14:49] VITALS: BP 163/94; PULSE 87; RESP 18; O2SAT 98
== END 2023-10-31 14:50 | disposition home or self-care (01) ==
PROVIDERS: Emergency Provider Emergency Medicine; PCP Family Medicine
DX: S20.211A Contusion of right front wall of thorax, initial encounter (principal); W19.XXXA Unspecified fall, initial encounter; Z79.899 Other long term (current) drug therapy; Z79.84 Long term (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 hypoglycemic drugs
CPT/HCPCS: 36415; 71260; 80048; 85025; 96374; 99285; J1885; Q9967

== ENCOUNTER 2024-01-18 10:59 | Emergency (ER) | payer MEDICARE, SELFPAY ==
[2024-01-18 11:04] VITALS: BP 178/98; PULSE 102; TEMP 36.9; O2SAT 97; BMI 30.9
--- OUTSIDE RECORDS SUMMARY | 2024-01-18 11:14 | XMS_ITS | CCD ---
Author Organization [facility] Care Team Providers Care Instrumentation Supervisor Name Role Phone PHYSICIAN, DEFAULT Unavailable Unavailable PHYSICIAN, DEFAULT Unavailable Unavailable QUTEISH, VEEDA O Unavailable Unavailable CARMELASORAIDAIP COOKIE Admitting Unavailabl e CARMELASORAIDAIP COOKIE Attending Unavailabl e Suzie Kim Primary Care Unavailable Juan, Ceceilia Consulting Unavailable Juan, Ceceilia Consulting Unavailable Juan Ceceilia Consulting Unavailable RAMONA FARIDA Elma Consulting Unavailable KUMARALINGAM AMANDA Consulting Unavailabl e BV, Physician - Emergency Consulting Briseida Boateng Consulting Unavailable Drew Soriano Consulting Unavailable CARMELASORAIDAIP COOKIE Attending Unavailabl e Suzie Kim Primary Care Unavailable SUZIE KIM Consulting Unavailable CARMELASORAIDAIP COOKIE Admitting Unavailabl e CARMELA, JUAN COOKIE Attending Unavailabl e Suzie Kim Primary Care Unavailable KOKI MARQUEZ Consulting Unavailable BV, Physician - Emergency Consulting Briseida Boateng Consulting Unavailable Koki Marquez Consulting Unavailable Drew Soriano Consulting Unavailable CARMELASORAIDAIP COOKIE Attending Unavailabl e Suzie Kim Primary Care Unavailable SUZIE KIM Consulting Unavailable Jeni Antonio Primary Care Provider NON, STAFF, Primary Care Provider UnavailKrishan Stacy Attending Provider [phone] Unavailable Primary Care Provider Unavailabl e Gloria Omalley DO Primary Care Provider Krishan Madrid Unavailable MAGEN, DR MOSS Primary Care Unavailable TIMMIS, DR GARZA Admitting Unavailable TIMMIS, DR GARZA Attending Unavailable MISC, DR MOSS Primary Care Unavailable TIMMIS, DR GARZA Admitting Unavailable TIMMIS, DR GARZA Attending Unavailable TIMMIS, DR GARZA Consulting Unavailable MISC, DR MOSS Primary Care Unavailable TIMMIS, DR GARZA Admitting Unavailable TIMMIS, DR GARZA Attending Unavailable HAY ., DR PERES Attending Unavailable RUMSCHLAG, GLORIA Primary Care Unavailable GRECHNY ., JUSTIN NIÑO Consulting Unavailabl e HAY ., DR PERES Admitting Unavailable PENDLETONSUSAN Consulting Unavailable HANNAH SOLER Referring Unavailable RUMSCHLAG, GLORIA Primary Care Unavailable KAYLA FORMAN H Attending Unavailable OBRYCKIBRUCE S Attending Unavailable OBRYCKBRUCE Doyle S Referring Unavailable RUMSCHLAG, GLORIA K Primary Care Unavailable RUMSCHLAG, GLORIA K Primary Care Unavailable CUMMINGS, HERMILO A Attending Unavailable RUMSCHLAG, GLORIA K Primary Care Unavailable KARCHNERJENI Attending Unavailable KARCHNERJENI Referring Unavailable RUMSCHLAG, GLORIA K Primary Care Unavailable CUMMINGS, HERMILO A Attending Unavailable CUMMINGS, HERMILO A Referring Unavailable RUMSCHLAG, GLORIA K Primary Care Unavailable RUMSCHLAG, GLORIA K Primary Care Unavailable OBRYCKBRUCE Doyle Attending Unavailable Rumschlag DO, Gloria K Primary Care Provider NARINDER RIVAS Attending Unavailable RUMSCHLAG, GLORIA K Referring Unavailable RUMSCHLAG, GLORIA K Primary Care Unavailable RUMSCHLAG, GLORIA K Referring Unavailable RUMSCHLAG, GLORIA K Primary Care Unavailable Unavailable Unavailable Unavailable Allergies Allergy Classification Reported Allergen(s) Allergy Type Date of Onset Reaction(s) Facility Penicillins (antibiotic) (1 source) Penicillins Drug Allergy 3 Hives, Nausea And Vomiting [facility] (5 sources) Honey; Translations: [Unknown] Drug allergy (disorder) 0 [facility] (6 sources) Penicillins; Translations: [penicillins] Drug allergy (disorder) 9 Hives, Nausea And Vomiting [facility] (6 sources) Honey Propensity to adverse reactions to drug 3 Swelling [place] (1 source) Penicillins Propensity to adverse reactions to drug 3 Hives, Nausea And Vomiting [place] (1 source) Penicillin Drug Allergy Unknown [facility] Other (5 sources) PERFLUTREN LIPID MICROSPHERES; Translations: [PERFLUTREN LIPID MICROSPHERES] Propensity to adverse reactions to drug (disorder) 1 [facility] (3 sources) Penicillins Propensity to adverse reactions to drug 7 Hives, Nausea [facility] Medications Current Medications Medication Drug Class(es) Dates Sig (Normalized) Sig (Original) 8 hr acetaminophen 650 mg extended release oral tablet (6 sources) acetaminophen (T YLENOL ARTHRITIS) 650 mg 8 hr tablet as needed. 0 Active take 2 tablets by mo uth every six hours as needed for pain acetaminophen (TYLENOL) 500 MG tablet Ta ke 1,000 mg by mouth every 6 hours as needed for Pain. 0 Active atorvastatin 10 mg oral tablet (3 sources) HMG-CoA Reductase Inhibitor Start: 04-18-2021 take 1 tablet by mouth in the morning atorvastatin (LIPITOR) 10 mg tablet Take 1 tablet (10 mg total) by mouth in the morning. 0 04/18/2021 Active benzonatate 100 mg oral capsule (3 sources) Non-narcotic Antitussive Start: 09-20-2023 take 1 capsule by mouth every eight hours benzonatate (TESSALON PERLES) 100 mg capsule Take 1 capsule (100 mg total) by mouth every 8 (eight) hours. 21 capsule 0 09/20/2023 Active Calcium (3 sources) Phosphate Binder, Calcium CALCIUM ORAL Take by mouth daily. 0 Active calcium chloride 0.0014 meq/ml / potassium chloride 0.004 meq/ml / sodium chloride 0.103 meq/ml / sodium lactate 0.028 meq/ml injectable solution (1 source) Start: 04-03-2021 lactated ringers infusion calcium citrate 1500 mg / cholecalciferol 250 unt oral tablet (3 sources) Vitamin D calcium citrate-vitamin D (CITRICAL + D) 315-250 MG-UNIT TABS Take by mouth 0 Active carvedilol 25 mg oral tablet (4 sources) alpha-Adrenergic Mook, beta-Adrenergic Mook Start: 05-09-2023 take 1 tablet by mouth in the morning, then take 1 tablet by mouth at bedtime carvediloL (COREG) 25 mg tablet Take 1 tablet (25 mg total) by mouth in the morning and 1 tablet (25 mg total) before bedtime. 180 tablet 3 05/09/2023 Active Start: 03-15-2021 take 1 tablet by teresa th twice daily carvedilol (COREG) 25 MG tablet TAKE 1 TABLET BY MOUTH TWICE DAILY 0 03/15/2021 Active ciprofloxacin 500 mg oral tablet (1 source) Quinolone Antimicrobial Start: 04-14-2022 take 1 tablet by mouth twice daily ciprofloxacin (CIPRO) 500 MG tablet TAKE 1 TABLET BY MOUTH TWICE DAILY FOR 7 DAYS 0 04/14/2022 Active 0.5 ml dulaglutide 1.5 mg/ml auto-injector (5 sources) GLP-1 Receptor Agonist dulaglutide (TRULICITY) 0.75 mg/0.5 mL pen injector Inject under the skin every 7 days. 0 Active Dulaglutide (BARRINGTON LICITY SC) Inject into the skin 0 Active Dulaglutide (BARRINGTON LICITY SC) Inject into the skin 0 Suspended esomeprazole 20 mg granules for oral suspension (3 sources) Proton Pump Inhibitor take 20 mg by mouth once daily as needed esomeprazole Magnesium (NEXIUM) 20 MG PACK Take 20 mg by mouth daily as needed 0 Active fluticasone propionate 0.05 mg/actuat metered dose nasal spray (3 sources) Corticosteroid Start: 023 take 1 spray(s) nasal route in the morning fluticasone propionate (FLONASE) 50 mcg/actuation nasal spray Administer 1 spray into each nostril in the morning. 16 g 0 09/24/2023 Active glyBURIDE 5 mg oral tablet (5 sources) Sulfonylurea Start: glyBURIDE (DIABETA) 5 mg tablet Take 1 tablet (5 mg total) by mouth as needed. 0 12/14/2020 Active 12 hr guaiFENesin 600 mg / pseudoephedrine hydrochloride 60 mg extended release oral tablet (3 sources) alpha-Adrenergic Agonist Start: 023 take 1 tablet by mouth every twelve hours pseudoephedrine-guaiF ENesin (MUCINEX D) 60-600 mg per 12 hr tablet Take 1 tablet by mouth every 12 (twelve) hours. 15 tablet 0 05/02/2023 Active hydrocortisone 10 mg/ml topical cream (1 source) Corticosteroid Start: 021 hydrocortisone 1 % cream Apply to affected area 2 times daily 0 05/19/2021 Active ibuprofen 800 mg oral tablet (3 sources) Nonsteroidal Anti-inflammatory Drug take 1 tablet by mouth every eight hours as needed for pain ibuprofen (ADVIL;MOTRIN) 800 MG tablet Take 800 mg by mouth every 8 hours as needed for Pain 0 Active lisinopril 40 mg oral tablet (7 sources) Angiotensin Converting Enzyme Inhibitor Start: 015 take 1 tablet by mouth in the morning lisinopril (PRINIVIL,ZESTRIL) 40 mg tablet Take 1 tablet (40 mg total) by mouth in the morning. 0 08/15/2015 Active take 2 tablets by mouth once wyatt ly lisinopril (PRINIVIL;ZESTRIL) 20 MG tablet Take 40 mg by mouth daily 0 Active metFORMIN hydrochloride 500 mg oral tablet (7 sources) Biguanide metFORMIN (GLUCO PHAGE) 500 mg tablet Indications: type 2 diabetes mellitus Take 1 tablet (500 mg total) by mouth in the morning and 1 tablet (500 mg total) before bedtime. Indications: type 2 diabetes mellitus. 0 Active miscellaneous medical supply misc (3 sources) miscellaneous me dical supply misc 1 tablet 0 Active mupirocin 20 mg/ml topical cream (1 source) RNA Synthetase Inhibitor Antibacterial Start: 08-09-2021 mupirocin (BACTROBAN) 2 % cream Apply topically 3 times daily 0 08/09/2021 Active sodium chloride 0.111 meq/ml nasal spray (5 sources) Start: 02-07-2023 sodium chloride (OCEAN) 0.65 % nasal spray Administer 1 spray into each nostril as needed for congestion. 15 mL 0 02/07/2023 Active Start: 04-03-2021 sodium chlorid e flush 0.9 % injection 5-40 mL sucralfate 100 mg/ml oral suspension (2 sources) Aluminum Complex Start: 04-03-2021 take 1 tablet by mouth four times daily sucralfate (CARAFATE) 1 GM/10ML suspension Take 10 mLs by mouth 4 times daily Substitute 1 g Carafate tablets and instruct patient how to create slurry at home, if financially advantageous to patient. 420 mL 1 04/03/2021 Active sulfamethoxazole 800 mg / trimethoprim 160 mg oral tablet (1 source) Dihydrofolate Reductase Inhibitor Antibacterial, Sulfonamide Antimicrobial Start: 12-24-2021 take 1 tablet by mouth twice daily at bedtime sulfamethoxazole- trimethoprim (BACTRIM DS;SEPTRA DS) 800-160 MG per tablet TAKE 1 TABLET BY MOUTH TWICE DAILY FOR 5 DAYS (MORNING AND BEFORE BEDTIME) 0 12/24/2021 Active Completed/Discontinued Medications Medication Drug Class(es) Dates Sig (Normalized) Sig (Original) aspirin 81 mg delayed release oral tablet (4 sources) Platelet Aggregation Inhibitor, Nonsteroidal Anti-inflammatory Drug End: 12-02-2023 take 1 tablet by mouth in the morning aspirin 81 mg Take 1 tablet (81 mg total) by mouth in the morning. 0 12/02/2023 Discontinued take 1 tablet by mouth two times weekly aspirin 81 MG tablet Take 81 mg by mouth twice a week 0 Active clotrimazole 10 mg/ml topical cream (1 source) Azole Antifungal Start: 05-27-2022 End: 12-02-2023 clotrimazole (LOTRIMIN) 1 % cream Apply to affected area 2 times daily 15 g 0 05/27/2022 12/02/2023 Discontinued estradiol 0.1 mg/ml vaginal cream (1 source) Estrogen Start: 08-05-2023 End: 12-02-2023 estradioL (ESTRACE) 0.01 % (0.1 mg/gram) vaginal cream Apply a small dab every other night around urethra 42.5 g 0 08/05/2023 12/02/2023 Discontinued lidocaine 0.05 mg/mg medicated patch (1 source) Antiarrhythmic, Amide Local Anesthetic Start: 10-26-2023 End: 12-02-2023 apply 1 dose transdermal route once daily, then apply 1 dose transdermal route every twelve hours lidocaine (LIDODERM) 5 % Place 1 patch on the skin daily. Remove & Discard patch within 12 hours or as directed by MD 30 patch 0 10/26/2023 12/02/2023 Discontinued Problems Active Problems Problem Classification Problem Date Documented Da te Episodic/Chronic Abdominal pain (1 source) Abdominal pain; Translations: [Unspecified abdominal pain] Episodic Diabetes mellitus without complication (7 sources) Diabetes mellitus; Translations: [Type 2 diabetes mellitus] Onset: 8 04-04-2020 Chronic Disorders of lipid metabolism (7 sources) Hyperlipidemia; Translations: [Hyperlipidemia, unspecified] Onset: 8 04-04-2020 Chronic E Codes: Fall (1 source) Fall Onset: 4 Esophageal disorders (3 sources) Gastroesophageal reflux disease; Translations: [Gastro-esophageal reflux disease without esophagitis] Onset: 1 Chronic Essential hypertension (7 sources) Hypertensive disorder; Translations: [Essential (primary) hypertension] Onset: 8 12-02-2023 Chronic Genitourinary symptoms and ill-defined conditions (4 sources) Mixed incontinence; Translations: [Mixed urinary incontinence] Onset: 8 08-05-2023 Chronic Genitourinary symptoms and ill-defined conditions (2 sources) Frequency of micturition; Translations: [Urgency of urination] Onset: 3 Episodic Heart valve disorders (1 source) Irregular heart beat Onset: 3 Episodic Osteoarthritis (6 sources) Osteoarthritis of right knee joint; Translations: [Unilateral primary osteoarthritis, right knee] Onset: 3 04-04-2020 Chronic Osteoarthritis (1 source) Osteoarthritis of right knee joint; Translations: [Osteoarthritis of right knee] Onset: 3 Osteoporosis (3 sources) Senile osteoporosis; Translations: [Age-related osteoporosis without current pathological fracture] Onset: 9 04-04-2020 Chronic Other acquired deformities (1 source) Lumbar spondylolisthesis; Translations: [Spondylolisthesis, lumbar region] Episodic Other aftercare (1 source) director long term care (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 hypoglycemic drugs; Translations: [PATIENT REGISTRATION MANAGER USE ORAL HYPOGLYCEMIC DX] Onset: 3 Episodic Other aftercare (1 source) Other director long term care (current) drug therapy; Translations: [OTH PATIENT REGISTRATION MANAGER CURRENT DRUG THERAPY] Onset: 3 Episodic Other and unspecified benign neoplasm (1 source) History of polyp of colon; Translations: [Personal history of colonic polyps] Episodic Other connective tissue disease (1 source) Presence of left artificial knee joint; Translations: [PRESENCE LEFT ARTIFICIAL KNEE JOINT] Onset: 3 Chronic Other connective tissue disease (3 sources) History of prosthetic unicompartmental arthroplasty of right knee; Translations: [Presence of right artificial knee joint] Onset: 3 06-09-2018 Chronic Other connective tissue disease (1 source) Fibromyalgia; Translations: [FIBROMYALGIA] Onset: 3 Episodic Other gastrointestinal disorders (4 sources) Dysphagia; Translations: [Dysphagia, unspecified] Onset: 4 03-15-2015 Episodic Other gastrointestinal disorders (1 source) Pain associated with defecation; Translations: [Other specified symptoms and signs involving the digestive system and abdomen] Episodic Other lower respiratory disease (1 source) Nodule of lung; Translations: [Solitary pulmonary nodule] 12-08-2023 Episodic Other lower respiratory disease (1 source) Solitary pulmonary nodule; Translations: [Solitary pulmonary nodule] Onset: 4 Episodic Other nutritional; endocrine; and metabolic disorders (1 source) Morbid obesity; Translations: [Obesity, Class III, BMI 40-49.9 (morbid obesity)] Onset: 3 Chronic Other nutritional; endocrine; and metabolic disorders (5 sources) Severe obesity; Translations: [Morbid (severe) obesity due to excess calories] Onset: 3 04-04-2020 Chronic Other nutritional; endocrine; and metabolic disorders (3 sources) Body mass index 40+ - severely obese; Translations: [Morbid (severe) obesity due to excess calories] Onset: 3 06-09-2018 Chronic Other nutritional; endocrine; and metabolic disorders (10 sources) Body mass index 30+ - obesity; Translations: [Obesity, unspecified] Onset: 8 Resolved: 9 01-29-2021 Chronic Other nutritional; endocrine; and metabolic disorders (1 source) Obesity, unspecified; Translations: [Obesity, unspecified] Onset: 1 Chronic Other upper respiratory disease (1 source) Nasal congestion; Translations: [Nasal congestion] Onset: 3 Episodic Residual codes; unclassified (5 sources) Obstructive sleep apnea (adult) (pediatric); Translations: [OBSTRUCTIVE SLEEP APNEA] Onset: 2 Chronic Residual codes; unclassified (1 source) Obstructive sleep apnea syndrome; Translations: [Obstructive sleep apnea (adult) (pediatric)] 12-08-2023 Chronic Residual codes; unclassified (1 source) Acquired absence of other specified parts of digestive tract; Translations: [ACQ ABSENCE OTH PART DIGESTV TRACT] Onset: 3 Episodic Residual codes; unclassified (1 source) Pain, unspecified; Translations: [Pain, unspecified] Onset: 4 Episodic Schizophrenia and other psychotic disorders (1 source) Schizophrenia, unspecified; Translations: [SCHIZOPHRENIA UNSPECIFIED] Onset: 3 Chronic Spondylosis; intervertebral disc disorders; other back problems (6 sources) Lumbosacral spondylosis without myelopathy; Translations: [Spondylosis without myelopathy or radiculopathy, lumbosacral region] Onset: 9 02-06-2021 Chronic Spondylosis; intervertebral disc disorders; other back [...] exam] Onset: 3 07-19-2013 Unclassified (1 source) PATIENT REGISTRATION MANAGER INJECT NONINSULN ANTIDIAB; Translations: [FPC INJECT NONINSULN ANTIDIAB] Onset: 3 Unclassified (1 source) Cold Like Symptoms Onset: 3 Unclassified (1 source) New Patient Onset: 4 Past or Other Problems Problem Classification Problem Date Documented Da te Episodic/Chronic Abdominal hernia (4 sources) Diaphragmatic hernia without obstruction or gangrene; Translations: [Recurrent hernia of anterior abdominal wall] Onset: 8 06-15-2018 Episodic Cardiac dysrhythmias (5 sources) Tachyarrhythmia ; Translations: [Tachycardia, unspecified] Onset: 8 04-04-2020 Episodic Inflammatory diseases of female pelvic organs (2 sources) Acute vaginitis; Translations: [Acute vaginitis] Onset: 0 04-04-2020 Episodic Mood disorders (3 sources) Mood disorders Onset: 1 06-22-2021 Nonspecific chest pain (7 sources) Chest pain; Translations: [Other chest pain] Onset: 0 12-02-2023 Episodic Other acquired deformities (1 source) Spondylolisthesis, lumbar region Onset: 2 Resolved: 2 Episodic Other diseases of kidney and ureters (3 sources) Cyst of kidney; Translations: [Cyst of kidney, acquired] Onset: 0 05-22-2021 Episodic Other gastrointestinal disorders (3 sources) Alteration in bowel elimination; Translations: [Change in bowel habit] Onset: 4 03-15-2015 Episodic Other lower respiratory disease (3 sources) Dyspnea; Translations: [Shortness of breath] Onset: 0 Resolved: 4 12-02-2023 Episodic Other nutritional; endocrine; and metabolic disorders [...] of digestive tract] Onset: 0 04-04-2020 Episodic Urinary tract infections (3 sources) Recurrent urinary tract infection; Translations: [Urinary tract infection, site not specified] Onset: 3 08-05-2023 Episodic Results Test Name Value Interpretation Reference [...] Janet Alvarenga MD on 10/26/2023 11:55 AM Normal [facility] XR SPINE LUMBAR 2 OR 3 VWSon [...] Mosley MD on 10/26/2023 11:56 AM Normal [facility] XR SPINE THORACIC 2 VWSon XR SPINE [...] Borjas MD on 10/26/2023 12:00 PM Normal [facility] XR FACIAL BONES MIN 3 VWSon 09-28-2023 [...] Mosley MD on 09/28/2023 8:37 AM Normal [facility] BASIC METABOLIC PANLon 09-24 Anion gap [Moles/Vol] 9 mmol/L Normal 5-15 [facility] Comment on above: Performed By: #### B ALAN CBCA, 92069-8 #### [facility] ([id number]) [address] [place] [address] 36261 Calcium [Mass/Vol] 9.3 mg/dL Normal 8.5-10.5 [facility] Comment on above: Performed By: #### B ALAN CBCA, 31499-1 #### [facility] ([id number]) [address] [place] [address] 70995 Chloride [Moles/Vol] 102 mmol/L Normal 98-109 [facility] Comment on above: Performed By: #### B ALAN, CBCA, 28191-2 #### [facility] ([id number]) [address] [place] [address] 59429 CO2 [Moles/Vol] 26 mmol/L Normal 22-32 [facility] Comment on above: Performed By: #### B ALAN, CBCA, 49168-8 #### [facility] ([id number]) [address] [place] [address] 32265 Creatinine [Mass/Vol] 0.64 mg/dL Normal 0.40-1.00 [facility] Comment on above: Result Comment: METH OD TRACEABLE TO IDMS STANDARD Performed By: #### B ALAN, CBCA, 25052-0 #### [facility] ([id number]) [address] [place] [address] 15078 eGFR (CKD-EPI) NON-RACE DEPENDENT >90 Normal >59 [facility] Comment on above: Result Comment: Reported eGFR is based on the CKD-EPI 2020 equation that does not use a race coefficient. Performed By: #### B ALAN, CBCA, 43278-6 #### [facility] ([id number]) [address] [place] [address] 05620 Glucose [Mass/Vol] 202 mg/dL High 65-99 [facility] Comment on above: Performed By: #### B ALAN, CBCA, 41206-0 #### [facility] ([id number]) [address] [place] [address] 26413 Potassium [Moles/Vol] 3.8 mmol/L Normal 3.5-5.0 [facility] Comment on above: Performed By: #### B ALAN, CBCA, 18445-9 #### [facility] ([id number]) [address] [place] [address] 78943 Sodium [Moles/Vol] 137 mmol/L Normal 134-146 [facility] Comment on above: Performed By: #### Isabel PHILLIPS, CBCA, 48003-0 #### [facility] ([id number]) [address] [place] [address] 52090 Urea nitrogen [Mass/Vol] 13 mg/dL Normal 5-27 [facility] Comment on above: Performed By: #### B ALAN, CBCA, 10481-8 #### [facility] ([id number]) [address] [place] [address] 75686 CBC AND AUTO DIFFon 12-20-20 23 ABSOLUTE BASOPHIL 0.1 X10E9/L Normal 0.0-0.2 [facility] Comment on above: Performed By: #### B ALAN, CBCA, 18717-3 #### [facility] ([id number]) [address] [place] [address] 05151 ABSOLUTE NEUTROPHIL 3.7 X10E9/L Normal 1.5-6.6 [facility] Comment on above: Performed By: #### B MP, CBCA, 06718-1 #### [facility] ([id number]) [address] [place] [address] 01028 Basophils/100 WBC (Bld) 1.2 % Normal [facility] Comment on above: Performed By: #### B MP, CBCA, 10667-4 #### [facility] ([id number]) [address] [place] [address] 87867 Eosinophils (Bld) [#/Vol] 0.4 10*3/uL Normal 0.0-0.4 [facility] Comment on above: Performed By: #### B MP, CBCA, 35034-5 #### [facility] ([id number]) [address] [place] [address] 83467 Eosinophils/100 WBC (Bld) 6.7 % Normal [facility] Comment on above: Performed By: #### B MP, CBCA, 82436-7 #### [facility] ([id number]) [address] [place] [address] 89689 Erythrocyte distribution wid th (RBC) [Ratio] 13.7 % Normal 11.5-15.0 [facility] Comment on above: Performed By: #### B MP, CBCA, 47276-3 #### [facility] ([id number]) [address] [place] [address] 03188 Hematocrit (Bld) [Volume fraction] 39.1 % Normal 35-47 [facility] Comment on above: Performed By: #### B MP, CBCA, 59874-8 #### [facility] ([id number]) [address] [place] [address] 68190 Hemoglobin (Bld) [Mass/Vol] 12.9 g/dL Normal 11.7-15. 5 [facility] Comment on above: Performed By: #### B ALAN, CBCA, 77265-1 #### [facility] ([id number]) [address] [place] [address] 78542 Lymphocytes (Bld) [#/Vol] 1.4 10*3/uL Normal 1.0-3.5 [facility] Comment on above: Performed By: #### B ALAN, CBCA, 85456-4 #### [facility] ([id number]) [address] [place] [address] 33385 Lymphocytes/100 WBC (Bld) 22.9 % Normal [facility] Comment on above: Performed By: #### B ALAN, CBCA, 66438-7 #### [facility] ([id number]) [address] [place] [address] 71722 MCH (RBC) [Entitic mass] 28.4 pg Normal 27-34 [facility] Comment on above: Performed By: #### Isabel PHILLIPS, CBCA, 76657-4 #### [facility] ([id number]) [address] [place] [address] 74437 MCHC (RBC) [Mass/Vol] 33.0 g/dL Normal 32-36 [facility] Comment on above: Performed By: #### B ALAN, CBCA, 47462-7 #### [facility] ([id number]) [address] [place] [address] 00566 MCV (RBC) [Entitic vol] 86 fL Normal 80-100 [facility] Comment on above: Performed By: #### B ALAN, CBCA, 88101-5 #### [facility] ([id number]) [address] [place] [address] 40683 Monocytes (Bld) [#/Vol] 0.6 10*3/uL Normal 0-0.9 [facility] Comment on above: Performed By: #### B MP, CBCA, 58662-2 #### [facility] [facility] ([id number][facility] [address] [place] [address] 42969 Monocytes/100 WBC (Bld) 9.8 % Normal [facility] Comment on above: Performed By: #### B MP, CBCA, 93225-0 #### [facility] ([id number]) [address] [place] [address] 12306 Neutrophils/100 WBC (Bld) 59.4 % Normal [facility] Comment on above: Performed By: #### B MP, CBCA, 44514-9 #### [facility] ([id number]) [address] [place] [address] 53047 Platelet mean volume (Bld) [Entitic vol] 8.4 fL Normal 7-12 [facility] Comment on above: Performed By: #### B MP, CBCA, 86972-6 #### [facility] ([id number]) [address] [place] [address] 42006 Platelets (Bld) [#/Vol] 219 10*3/uL Normal 150-450 [facility] Comment on above: Performed By: #### B MP, CBCA, 77912-9 #### [facility] ([id number]) [address] [place] [address] 19054 RBC COUNT 4.53 X10E12/L Normal 3.80-5.20 [facility] Comment on above: Performed By: #### B MP, CBCA, 88897-5 #### [facility] ([id number]) [address] [place] [address] 71754 WBC (Bld) [#/Vol] 6.2 10*3/uL Normal 4.0-11.0 [facility] Comment on above: Performed By: #### B CHEYENNE PHILLIPS, 59637-8 #### [facility] ([id number]) [address] [facility] [place] [address] SARS/FLU A+B/RSV by NAAT/Mol ecularon 09-24-2023 SARS/FLU A+B/RSV by NAAT/Molecular FLU A [...] operators who are performing tests using either RPost DX or Meiyou systems and is limited to laboratories that [...] repeat. Fact Sheet for Healthcare Providers: https://www.fda.go v/media/743879/maci nload Fact Sheet for Patients: https://www.fda.go v/media/608225/maci nload Normal [facility] Comment on above: Performed By: #### C OVFLR #### [facility] ([id number]) [address] [place] [address] TROPONIN Ion 09-24-2023 Troponin I.cardiac [Mass/Vol] ng/mL Normal 0.00-0 .04 [facility] Comment on above: Performed By: #### B MP, CBCA, 66046-2 #### [facility] ([id number]) [address] [place] [address] 91647 XR CHEST 2 VWSon 09-24-2023 XR CHEST [...] Thomas Shrestha on 09/24/2023 9:20 AM Normal [facility] Cult,Urineon 05-16-2023 Cult,Urine Specimen Description .CLEAN CATCH URINE Culture NO SIGNIFICANT GROWTH Report Status FINAL 05/16/2023 Normal [facility] Comment on above: Performed By: #### U RC #### [address] [place] [address] Machinist Mate: Dallas Burton MD [facility] [address] [place] [address] Machinist Mate: Bennie Odonnell MD Urinalysis w/ Microon 2022 Bilirubin, SemiQt,Ur Negative Normal NEG [facility] Comment on above: Performed By: #### U AMIC #### [facility] [address] [place] [id number] Machinist Mate: Bennie Odonnell MD Blood, Urine Negative Normal NEG [facility] Comment on above: Performed By: #### U AMIC #### [facility] [address] [place], [place] [id number] Machinist Mate: Bennie Odonnell MD Clarity (U) Clear Normal CLEAR [facility] Comment on above: Performed By: #### U AMIC #### [facility] [address] [place], [place] [id number] Machinist Mate: Bennie Odonnell MD Color (U) Yellow Normal YEL [facility] Comment on above: Performed By: #### U AMIC #### [facility] [address] [place], [place] 8058[address] Machinist Mate: Bennie Odonnell MD Epithelial cells LM Ql (Urin e sed) 2 TO 5 Normal 0-25 [facility] Comment on above: Performed By: #### U AMIC #### [facility] [address] [place], [place] [id number] Machinist Mate: Bennie Odonnell MD Glucose Ql (U) Negative Normal NEG [facility] Comment on above: Performed By: #### U AMIC #### [facility] [address] [place], [place] 7[address] Machinist Mate: Bennie Odonnell MD Ketones Ql (U) Negative Normal NEG [facility] Comment on above: Performed By: #### U AMIC #### [facility] [address] [place], [place] 5088483 Machinist Mate: Bennie Odonnell MD Leukocyte esterase Test stri p Ql (U) Negative Normal [facility] Comment on above: Performed By: #### U AMIC #### [facility] [address] [place], [place] [address] Machinist Mate: Bennie Odonnell MD Nitrite,Ur Negative Normal NEG [facility] Comment on above: Performed By: #### U AMIC #### [facility] [address] [place] [address] Machinist Mate: Bennie Odonnell MD PH,Ur 5.5 Normal 5.0-9.0 [facility] Comment on above: Performed By: #### U AMIC #### [facility] [address] [place] [address] Machinist Mate: Bennie Odonnell MD Protein Ql (U) Negative Normal NEG [facility] Comment on above: Performed By: #### U AMIC #### [address] [place], [place] [id number] Machinist Mate: Bennie Odonnell MD Spec. [place],Ur 1.025 High 1.010-1.02 0 [facility] Comment on above: Performed By: #### U AMIC #### [facility] [address] [place] [address] [place], [place] [id number] Machinist Mate: Bennie Odonnell MD Urine RBC's 0 TO 2 Normal 0-2 [facility] Comment on above: Performed By: #### U AMIC #### [facility] [address] [place] [address] [place] [address] Machinist Mate: Bennie Odonnell MD Urine WBC's 0 TO 2 Normal 0-5 [facility] Comment on above: Performed By: #### U AMIC #### [facility] [address] [place] [address] Machinist Mate: Bennie Odonnell MD Urobilinogen,Ur Normal Normal 0.0-1.0 [facility] Comment on above: Performed By: #### U AMIC #### [facility] [address] [place] [address] Machinist Mate: Bennie Odonnell MD CBC AUTO DIFFon 01-05-2023 BASO # 0.0 103/ul Normal 0.0-0.1 [facility] Comment on above: Performed By: #### C BC #### [facility] [address] [place] [address] Dr. Traci Cerna Basophils/100 WBC (Bld) 0.7 % Normal 0.2-2.0 [facility] Comment on above: Performed By: #### C BC #### [facility] [address] [place] [address] Dr. Traci Cerna EO # 0.2 103/ul Normal 0.0-0.7 [facility] Comment on above: Performed By: #### C BC #### [facility] [address] [place] [address] Dr. Traci Cerna Eosinophils/100 WBC (Bld) 3.5 % Normal 0.9-7.0 [facility] Comment on above: Performed By: #### C BC #### [facility] [address] [place] [address] Dr. Traci Cerna Erythrocyte distribution wid th (RBC) [Ratio] 13.6 % Normal 11.0-15.0 [facility] Comment on above: Performed By: #### C BC #### [facility] [address] [place] [address] Dr. Traci Cerna Hematocrit (Bld) [Volume fraction] 38.9 % Normal 36.0-48.0 [facility] Comment on above: Performed By: #### C BC #### [facility] [address] [place] [address] Dr. Traci Cerna Hemoglobin (Bld) [Mass/Vol] 12.8 g/dL Normal 12.0-16. 0 [facility] Comment on above: Performed By: #### C BC #### [facility] [address] [place] [address] Dr. Traci Cerna IG # 0.01 10e3/ul Normal 0.00-0.03 [facility] Comment on above: Performed By: #### C BC #### [facility] [address] [place] [address] Dr. Traci Cerna IG % 0.2 % Normal 0.0-0.5 [facility] Comment on above: Performed By: #### C BC #### [facility] [address] [place] [address] Dr. Traci Cerna LYMPH # 2.0 103/ul Normal 1.2-3.8 [facility] Comment on above: Performed By: #### C BC #### [facility] [address] [place] [address] Dr. Traci Cerna Lymphocytes/100 WBC (Bld) 37.8 % Normal 20.5-60.0 [facility] Comment on above: Performed By: #### C BC #### [facility] [address] [place] [address] Dr. Traci Cerna MANUAL DIFF REQ NO Normal [facility] Comment on above: Performed By: #### C BC #### [facility] [address] [place] [address] Dr. Traci Cerna MCH (RBC) [Entitic mass] 28.6 pg Normal 26.7-34.0 [facility] Comment on above: Performed By: #### C BC #### [facility] [address] [place] [address] Dr. Traci Cerna MCHC (RBC) [Mass/Vol] 32.9 g/dL Normal 29.9-35.2 [facility] Comment on above: Performed By: #### C BC #### [facility] [address] [place] [address] Dr. Traci Cerna MCV (RBC) [Entitic vol] 86.8 fL Normal 81.0-99.0 [facility] Comment on above: Performed By: #### C BC #### [facility] [address] [place] [address] Dr. Traci Cerna MONO # 0.6 103/ul Normal 0.3-0.8 [facility] Comment on above: Performed By: #### C BC #### [facility] [address] [place] [address] Dr. Traci Cerna Monocytes/100 WBC (Bld) 10.8 % Normal 1.7-12.0 [facility] Comment on above: Performed By: #### C BC #### [facility] [address] [address] [address] Traci Cerna NEUT # 2.5 103/ul Normal 1.4-6.5 [facility] Comment on above: Performed By: #### C BC #### [facility] [address] [address] [address] Traci Cerna Neutrophils/100 WBC (Bld) 47.0 % Normal 43.0-75.0 [facility] Comment on above: Performed By: #### C BC #### [facility] [address] [address] [address] Traci Cerna Platelet mean volume (Bld) [Entitic vol] 9.9 fL Normal 9.5-13.5 [facility] Comment on above: Performed By: #### C BC #### [facility] [address] [place] [address] Dr. Traci Cerna PLT 218 103/ul Normal 150-450 [facility] Comment on above: Performed By: #### C BC #### [facility] [address] [address] [address] Traci Cerna RBC 4.48 106/ul Normal 4.20-5.40 [facility] Comment on above: Performed By: #### C BC #### [facility] [address] [place] [address] Dr. Traci Cerna WBC 5.4 103/ul Normal 4.0-11.0 [facility] Comment on above: Performed By: #### C BC #### [facility] [address] [place] [address] NECK ST WO CONon 01-06-[address] WO CON CT SOFT TISSUE NECK WITHOUT [...] by: SUSAN PENDLETON Date: 2023-01-05 20:31 Normal [facility] PROF CHEM 8 (BAS METB)on Anion gap [Moles/Vol] 12.3 mmol/L Normal [facility] Comment on above: Performed By: #### T EMMA, BMP #### [facility] [address] [place] [address] Dr. Traci Cerna Calcium [Mass/Vol] 9.4 mg/dL Normal 8.5-10.1 [facility] Comment on above: Performed By: #### T EMMA, BMP #### [facility] [address] [address] [address] Traci Cerna Chloride [Moles/Vol] 105 mmol/L Normal 98-107 [facility] Comment on above: Performed By: #### T EMMA, BMP #### [facility] [address] [place] [address] Dr. Traci Cerna CO2 [Moles/Vol] 29.0 mmol/L Normal 21.0-32.0 [facility] Comment on above: Performed By: #### T EMMA, BMP #### [facility] [address] [address] [address] Traci Cerna Creatinine [Mass/Vol] 0.78 mg/dL Normal 0.55-1.02 [facility] Comment on above: Performed By: #### T EMMA, BMP #### [facility] [address] [place] [address] Dr. Traci Cerna EGFR-AF ARMENIAN >60 Normal >=60 [facility] Comment on above: Performed By: #### T EMMA, BMP #### [facility] [address] [place] [address] Dr. Traci Cerna EGFR-NON AF ARMENIAN >60 Normal >=60 [facility] Comment on above: Performed By: #### T SH, BMP #### [facility] [address] [address] [address] Traci Cerna Glucose [Mass/Vol] 178 mg/dL Critically high 74-106 T [facility] Comment on above: Performed By: #### T SH, BMP #### [facility] [address] [place] [address] Dr. Traci Cerna Potassium [Moles/Vol] 4.3 mmol/L Normal 3.5-5.1 [facility] Comment on above: Performed By: #### T EMMA, BMP #### [facility] [address] [place] [address] Dr. Traci Cerna Sodium [Moles/Vol] 142 mmol/L Normal 136-145 [facility] Comment on above: Performed By: #### T SH, BMP #### [facility] [address] [place] [address] Dr. Traci Cerna Urea nitrogen [Mass/Vol] 21.0 mg/dL Critically high 7.0-18 .0 [facility] Comment on above: Performed By: #### T SH, BMP #### [facility] [address] [place] [address] Dr. Traci Cerna Urea nitrogen/Creatinine [Ma ss ratio] 26.9 mg/mg Normal [facility] Comment on above: Performed By: #### T EMMA, BMP #### [facility] [address] [place] [address] Dr. Traci Cerna TSHon 01-05-2023 TSH 0.650 uIU/mL Normal 0.358-3.74 0 [facility] Comment on above: Performed By: #### T EMMA, BMP #### [facility] [address] [place] [address] Dr. Traci Cerna US Thyroidon 12-30-2022 US Thyroid CLINICAL HISTORY: Enlarged thyroid on physical exam. COMPARISON: None available. TECHNIQUE: Ultrasound of the thyroid was performed with a regional survey. Reference: ACR Thyroid, Imaging Recording and Data System (TI-RADS): White paper of the ACR TI-RADS committee. Journal of the [employer]: Volume 14, issue 5, [...] by Mac Dai on 01/01/2023 0924 Normal [facility] Colonoscopy studyOrdered By: Jairo Fisher on 04-03-2021 No dictation [employer] Phone: [employer] Phone: EsophagogastroduodenoscopyOr dered By: Jairo Fisher on 04-03-2021 No dictation [employer] Phone: [employer] Phone: .UA Microscp Aon 07-15-2019 UA Mucus Present Abnormal Absent [facility] Comment on above: Performed By: #### E GFR #### [facility] [address] [place] [address] UA RBC Quant 0 /HPF Normal 0-5 [facility] Comment on above: Performed By: #### E GFR #### [facility] [address] [place] [address] UA Squepi Cells Quant 1 /HPF Normal 0-29 [facility] Comment on above: Performed By: #### E GFR #### [facility] [address] [place] [address] UA WBC Quant 1 /HPF Normal 0-5 [facility] Comment on above: Performed By: #### E GFR #### [facility] [address] [place] [address] Consultation Note - Generico n 07-15-2019 Consultation [...] Koki Marquez DO 07/15/19 01:10 EDT Normal [facility] Inpatient Clinical Summaryon 07-15-2019 Inpatient Clinical Summary [facility] [address] [place] [id number] [address] Clinical Summary Person Information Name: Mari Garcia Age: 69 Years : 1950 Sex: Female PCP: Marital Status: PCP: Race: White Ethnicity: Not or Language: Greek Visit Id: Visit Reason: Speciality: Acuity: Enc Type: Inpatient Med Service: Surgery Arrival: 07/14/2019 05:57:15 Discharge: Dispo Type: Address: [address] [place], [place] [id number] Diagnosis: History of total left hip replacement; [...] Discharge Patient Education Review and attach ORTHO Eleazar Hip/Knee Inpatient Discharge Special Instructions Bruising may [...] STAY New Medications Printed Prescriptions hydrocodone-acetam inophen (Garden 5 mg-325 mg oral tablet) 1 Tabs [...] PATIENT?S CURRENT MEDICATIONS Printed Prescriptions hydrocodone-acetam inophen (Garden 5 mg-325 mg oral tablet) 1 Tabs [...] Address: When: Carmela ARORA, Juan Jimenes [address] [place] [phone] Normal [facility] POC Glucose Randomon 019 Glucose [Mass/Vol] 278 mg/dL High 78-110 [facility] Comment on above: Performed By: #### E GFR #### [address] [address] Glucose [Mass/Vol] 189 mg/dL High 78-110 [facility] Comment on above: Performed By: #### C OMP #### [address] [address] Glucose [Mass/Vol] 181 mg/dL High 78-110 [facility] Comment on above: Performed By: #### C OMP #### [address] [address] Glucose [Mass/Vol] 236 mg/dL High 78-110 [facility] Comment on above: Performed By: #### C OMP #### [address] [address] Glucose [Mass/Vol] 233 mg/dL High 78-110 [facility] Comment on above: Performed By: #### C OMP #### [address] [address] Glucose [Mass/Vol] 283 mg/dL High 78-110 [facility] Comment on above: Performed By: #### C OMP #### [address] [place] [address] UA w Culture if Indon 2018 Color (U) Yellow Normal [facility] Comment on above: Performed By: #### E GFR #### [address] [address] Glucose (U) [Mass/Vol] 150 mg/dL Abnormal Negative [facility] Comment on above: Performed By: #### E GFR #### [address] [address] Ketones Ql (U) Negative Normal Negative [facility] Comment on above: Performed By: #### E GFR #### [address] [address] UA Blood Negative Normal Negative [facility] Comment on above: Performed By: #### E GFR #### [address] [address] UA Clarity Clear Normal [facility] Comment on above: Performed By: #### E GFR #### [address] [address] UA Leukocyte Esterase Negative Normal Negative [facility] Comment on above: Performed By: #### E GFR #### [address] [address] UA Nitrite Negative Normal Negative [facility] Comment on above: Performed By: #### E GFR #### [address] [address] UA pH 6.0 Normal 4.5 - 7.8 [facility] Comment on above: Performed By: #### E GFR #### [address] [address] UA Protein Negative Normal Negative [facility] Comment on above: Performed By: #### E GFR #### [address] [place] [address] UA Source Clean Catch Normal [facility] Comment on above: Performed By: #### E GFR #### [address] [address] UA Spec Grav 1.010 Normal 1.003-1.03 5 [facility] Comment on above: Performed By: #### E GFR #### [address] UA Urobilinogen 0.2 mg/dL Normal 0.2 - 1.0 [facility] Comment on above: Performed By: #### E GFR #### [address] Urobilinogen Qn (U) Negative Normal Negative [facility] Comment on above: Performed By: #### E GFR #### [address] .eGFRon 07-14-2019 eGFR Non-AA >60 Normal >=60 [facility] Comment on above: Result Comment: Resu [...] dosing. Performed By: #### C OMP #### [address] eGFR AA >60 Normal >=60 [facility] Comment on above: Result Comment: Resu lt = 0-14.9 mL/min/1.73 m2 Kidney failure or Dialysis Result = 15-29 mL/min/1.73 m2 Severe decrease in GFR Result = 30-59 mL/min/1.73 m2 Moderate decrease in GFR Result >= 60 mL/min/1.73 m2 Normal or increased GFR Performed By: #### C OMP #### [id number] Basic Metabolic Profileon Anion gap [Moles/Vol] 14 mmol/L Normal 7-17 [facility] Comment on above: Performed By: #### C [id number] #### [address] [address] Calcium [Mass/Vol] 8.9 mg/dL Normal 8.5-10.3 [facility] Comment on above: Performed By: #### C D:[id number] #### [address] [address] Chloride [Moles/Vol] 104 mmol/L Normal 98-110 [facility] Comment on above: Performed By: #### C [id number] #### [address] [address] CO2 [Moles/Vol] 25 mmol/L Normal 22-32 [facility] Comment on above: Performed By: #### C [id number] #### [address] [address] Creatinine [Mass/Vol] 0.75 mg/dL Normal 0.44-1.03 [facility] Comment on above: Performed By: #### C [id number] #### [address] [address] Glucose [Mass/Vol] 206 mg/dL High 74-118 [facility] Comment on above: Performed By: #### C [id number] #### [address] [address] Potassium [Moles/Vol] 3.8 mmol/L Normal 3.4-4.8 [facility] Comment on above: Performed By: #### C D:[id number] #### [address] [address] Sodium [Moles/Vol] 139 mmol/L Normal 133-142 [facility] Comment on above: Performed By: #### C D:[id number] #### [address] [address] Urea nitrogen [Mass/Vol] 20 mg/dL Normal 8-26 [facility] Comment on above: Performed By: #### C D:[id number] #### [address] [address] Urea nitrogen/Creatinine [Ma ss ratio] 26.7 mg/mg High 10.0-20.0 [facility] Comment on above: Performed By: #### C D:[id number] #### [address] [address] Hgb & Hcton 07-14-2019 Hematocrit (Bld) [Volume fraction] 33.0 % Low 36.0-46.0 [facility] Comment on above: Performed By: #### C [id number] #### [address] [address] Hemoglobin (Bld) [Mass/Vol] 10.9 g/dL Low 12.0-16. 0 [facility] Comment on above: Performed By: #### C D:[id number] #### [address] [address] Operative Reporton 9 Operative Report Indication for Surgery Degenerative arthritis left hip Preoperative Diagnosis Degenerative arthritis left hip Postoperative Diagnosis Same Operation Left total hip replacement Parveen 54 mm Continuum cup Fit more B4 femoral stem Versus 36 mm head +0 neck 2 acetabular screws 36 mm inner diameter elevated liner Surgeon(s) Dr. Juan Casey Stile Ripsaw Operator [facility] Anesthesia General Estimated Blood Loss [...] layer was then closed with #1 Ethibond [id number] sutures. The second half of the vancomycin [...] Juan Casey MD 07/14/19 10:28 EDT Normal [facility] POC Glucose Randomon 019 Glucose [Mass/Vol] 215 mg/dL High 78-110 [facility] Comment on above: Performed By: #### E GFR #### [address] [address] Glucose [Mass/Vol] 119 mg/dL High 78-110 [facility] Comment on above: Performed By: #### C [id number] #### [address] [address] Glucose [Mass/Vol] 136 mg/dL High 78-110 [facility] Comment on above: Performed By: #### C [id number] #### [address] [address] Glucose [Mass/Vol] 204 mg/dL High 78-110 [facility] Comment on above: Performed By: #### C [id number] #### [address] [address] Glucose [Mass/Vol] 267 mg/dL High 78-110 [facility] Comment on above: Performed By: #### C [id number] #### [address] [address] Glucose [Mass/Vol] 164 mg/dL High 78-110 [facility] Comment on above: Performed By: #### C [id number] #### [address] [address] XR Hip Operative 1 View Left on [...] Electronically Signed in Other Vendor System) Normal [facility] ABO/Rhon 07-02-2019 ABO/Rh SD 07/14/2019 DCon: 0 ABO/Rh: O NEG Normal [facility] Comment on above: Performed By: #### C [id number] #### [address] [address] ABSC Autoon 07-02-2019 ABSC Auto Negative Normal [facility] [facility] Comment on above: Performed By: #### C [id number] #### [address] [address] CBC w/ Diffon 07-02-2019 Erythrocyte distribution wid th (RBC) [Ratio] 14.1 % Normal 11.6-14.8 [facility] Comment on above: Performed By: #### C [id number] #### [address] [address] Hematocrit (Bld) [Volume fraction] 39.9 % Normal 36.0-46.0 [facility] Comment on above: Performed By: #### C [id number] #### [address] [address] Hemoglobin (Bld) [Mass/Vol] 13.5 g/dL Normal 12.0-16. 0 [facility] Comment on above: Performed By: #### C [id number] #### [address] [address] MCH (RBC) [Entitic mass] 28.9 pg Normal 27.0-35.0 [facility] Comment on above: Performed By: #### C [id number] #### [address] [address] MCHC (RBC) [Mass/Vol] 33.8 % Normal 31.0-37.0 [facility] Comment on above: Performed By: #### C [id number] #### [address] [address] MCV (RBC) [Entitic vol] 85.6 fL Normal 80.0-100.0 [facility] Comment on above: Performed By: #### C [id number] #### [address] [address] Platelet mean volume (Bld) [Entitic vol] 8.3 fL Normal 6.7-10.6 [facility] Comment on above: Performed By: #### C D:[id number] #### [address] [address] Platelets (Bld) [#/Vol] 214 x10*3/mcL Normal 150-350 [facility] Comment on above: Performed By: #### C [id number] #### [address] [address] RBC (Bld) [#/Vol] 4.67 x10*6/mcL Normal 3.80-5.20 [facility] Comment on above: Performed By: #### C [id number] #### [address] [address] WBC (Bld) [#/Vol] 5.2 x10*3/mcL Normal 4.5-11.0 [facility] Comment on above: Performed By: #### C D:[id number] #### [address] [address] Diff Autoon 07-02-2019 Baso Absolute 0.0 x10*3/mcL Normal 0.0-0.2 [facility] Comment on above: Performed By: #### C [id number] #### [address] [address] Basophils/100 WBC (Bld) 0.5 % Normal 0.0-1.5 B [facility] Comment on above: Performed By: #### C [id number] #### [address] [address] Eos Absolute 0.1 x10*3/mcL Normal 0.0-0.4 [facility] Comment on above: Performed By: #### C [id number] #### [address] [address] Eosinophils/100 WBC (Bld) 2.0 % Normal 0.0-5.4 [facility] Comment on above: Performed By: #### C [id number] #### [address] [address] Lymphocytes (Bld) [#/Vol] 1.6 x10*3/mcL Normal 1.0-4.8 [facility] Comment on above: Performed By: #### C D:[id number] #### [address] [address] Lymphocytes/100 WBC (Bld) 30.9 % Normal 27.2-40.8 [facility] Comment on above: Performed By: #### C D:[id number] #### [address] [address] [place] Absolute 0.6 x10*3/mcL Normal 0.1-1.1 [facility] Comment on above: Performed By: #### C D:[id number] #### [address] [address] Monocytes/100 WBC (Bld) 11.8 % Normal 3.7-11.9 [facility] Comment on above: Performed By: #### C [id number] #### [address] [address] Neutro Absolute 2.8 x10*3/mcL Normal 1.8-7.7 [facility] Comment on above: Performed By: #### C D:[id number] #### [place] [id number] Neutro Auto 54.8 % Normal 47.2-70.8 [facility] Comment on above: Performed By: #### C D:[id number] #### [place] [id number] .eGFRon 12-31-2018 eGFR Non-AA >60 Normal >=60 [facility] Comment on above: Result Comment: Resu [...] for medication dosing. Performed By: #### C D:[id number] #### [place] [address] eGFR AA >60 Normal >=60 [facility] Comment on above: Result Comment: Resu lt = 0-14.9 mL/min/1.73 m2 Kidney failure or Dialysis Result = 15-29 mL/min/1.73 m2 Severe decrease in GFR Result = 30-59 mL/min/1.73 m2 Moderate decrease in GFR Result >= 60 mL/min/1.73 m2 Normal or increased GFR Performed By: #### C D:[id number] #### [place] [id number] Basic Metabolic Profileon Anion gap [Moles/Vol] 12 mmol/L Normal 7-17 [facility] Comment on above: Performed By: #### C BC #### [address] [place] [address] Calcium [Mass/Vol] 8.9 mg/dL Normal 8.5-10.3 [facility] Comment on above: Performed By: #### C BC #### [address] [address] Chloride [Moles/Vol] 107 mmol/L Normal 98-110 [facility] Comment on above: Performed By: #### C BC #### [address] [address] CO2 [Moles/Vol] 21 mmol/L Low 22-32 [facility] Comment on above: Performed By: #### C BC #### [address] [address] Creatinine [Mass/Vol] 0.74 mg/dL Normal 0.44-1.03 [facility] Comment on above: Performed By: #### C BC #### [address] [address] Glucose [Mass/Vol] 243 mg/dL High 74-118 [facility] Comment on above: Performed By: #### C BC #### [address] [address] Potassium [Moles/Vol] 4.0 mmol/L Normal 3.4-4.8 [facility] Comment on above: Performed By: #### C BC #### [address] [address] Sodium [Moles/Vol] 136 mmol/L Normal 133-142 [facility] Comment on above: Performed By: #### C BC #### [address] [address] Urea nitrogen [Mass/Vol] 21 mg/dL Normal 8-26 [facility] Comment on above: Performed By: #### C BC #### [address] [address] Urea nitrogen/Creatinine [Ma ss ratio] 28.4 mg/mg High 10.0-20.0 [facility] Comment on above: Performed By: #### C BC #### [address] [address] Hgb & Hcton 12-31-2018 Hematocrit (Bld) [Volume fraction] 32.0 % Low 36.0-46.0 [facility] Comment on above: Performed By: #### C BC #### [address] [address] Hemoglobin (Bld) [Mass/Vol] 10.7 g/dL Low 12.0-16. 0 [facility] Comment on above: Performed By: #### C BC #### [address] [address] Inpatient Clinical Summaryon 12-31-2018 Inpatient Clinical Summary [address] [address] Clinical Summary Person Information Name: Mari Garcia Age: 68 Years : 1950 Sex: Female PCP: Suzie Kim CNP Marital Status: PCP: [phone] Race: White Ethnicity: Not or Language: Greek Visit Id: Visit Reason: Speciality: Acuity: Enc Type: Observation Med Service: Surgery Arrival: 12/30/2018 06:28:09 Discharge: Dispo Type: Address: [address] [place] [address] Diagnosis: 1:S/P total knee replacement; 2:Arthritis of [...] Discharge Patient Education Review and attach ORTHO [facility] Hip/Knee Inpatient Discharge Special Instructions If your [...] Have Not Changed Printed Prescriptions hydrocodone-acetam inophen (Garden 5 mg-325 mg oral tablet) 1 Tabs [...] PATIENT?S CURRENT MEDICATIONS Printed Prescriptions hydrocodone-acetam inophen (Garden 5 mg-325 mg oral tablet) 1 Tabs [...] Consulting Physician: Malick Martinez PA-C, MD, Farida Campo; Paula ARORA, Amanda Referring Physician: Follow up: With: Address: When: Juan Casey [address] [place] [address] [phone] Business (1) Within 1 to 2 weeks Comments: 2 weeks With: Address: When: Suzie Kim [address] [place] [address] [phone] Business (1) Normal [facility] POC Glucose Randomon 019 Glucose [Mass/Vol] 270 mg/dL High 78-110 [facility] Comment on above: Performed By: #### C [id number] #### [address] [address] Glucose [Mass/Vol] 149 mg/dL High 78-110 [facility] Comment on above: Performed By: #### C [id number] #### [address] [address] Glucose [Mass/Vol] 174 mg/dL High 78-110 [facility] Comment on above: Performed By: #### C [id number] #### [facility] [address] [place] [address] Glucose [Mass/Vol] 244 mg/dL High 78-110 [facility] Comment on above: Performed By: #### C BC #### [facility] [address] [place] [address] Glucose [Mass/Vol] 303 mg/dL High 78-110 [facility] Comment on above: Performed By: #### C BC #### [facility] [address] [place] [address] Progress Note - [employer] Progress Note - [...] femoral vein. Results called to ELROY Snider. Copier Field Service Technician: Maribel Collins RVT Radiologist Report Signature Line Transcribed by: Maribel [...] Left Okay to discharge to home. [1] UEVLL VL Extremity Venous Duplex Lower Left; Maribel Collins 12/31/2018 10:57 EDT Electronically signed by Tomas Holt CNP 12/31/18 13:28 EDT Normal [facility] VL Extremity Venous Duplex Dontae Stone 12-31-2018 VL Extremity Venous Duplex Lower Left Preliminary Technologist Report Left lower extremity: Appeared to be no evidence of acute or chronic DVT in the visualized veins. Normal comparative study of the right common femoral vein. Results called to ELROY Snider. Copier Field Service Technician: Maribel Collins, RVT Radiologist Report Left lower extremity venous [...] Electronically Signed in Other Vendor System) Normal [facility] Consultation Note - Generico n 12-30-2018 Consultation Note - Generic Chief Compla int LEFT KNEE PAIN/ARTHRITIS-KAMINI EDULED FOR TOTAL LEFT KNEE Reason for Consultation diabetes management History of Present Illness PCP: Suzie kim CNP- [facility] orthopedist: Dr. Juan Casey urologist: Dr. juan luis Lane spine surgeon: Dr. Krishan Espana- Nikolas, [place] The patient is a 68-year-old female with [...] replacement - per ortho recommendations - on Garden prn pain and IV dilaudid prn breakthrough pain - Xarelto prn DVT prophylaxis. 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 Has rxs for Xarelto and Garden to be continued on discharge - plans [...] Limited # of times, Dispense From Location: Uslfowi-QCG-8R glucose, 12.5 g, IV Push, Injection, As Indicated for 20 doses, PRN other (see comment), First Dose: 12/30/18 15:58:00 EDT, Stop Date: Limited # of times, Dispense From Location: Dgwxgml-WEU-2V insulin aspart, 4, Subcutaneous, Injection, Once, First [...] Dose: 12/31/18 9:00:00 EDT, Dispense From Location: Ewkwcmu-KUW-4U meclizine, 12.5 mg, Oral, Tab, Daily, PRN dizziness, First Dose: 12/30/18 15:56:00 EDT, Dispense From Location: Rwiwlsx-QTJ-2F omeprazole, 20 mg, Oral, Cap-DR, qAM, First Dose: 12/31/18 7:00:00 EDT, Dispense From Location: Klhkdzm-OHK-0R ADA Diet Blood Glucose Monitoring POC Blood Glucose Monitoring POC Blood Glucose Monitoring POC Blood Glucose Monitoring POC Insulin Safety [place] Insulin Safety [place] Notify Provider Notify Provider Notify Provider Notify [...] 2 mL, IV Push, q6hr, PRN Prescriptions Garden 5 mg-325 mg oral tablet, 1 tabs, [...] (12/08/18) Methicillin Resistant Staph aurus(MRSA): Negative (12/30/18) [place] Absolute: 0.7 (12/08/18) [place] Auto: 10.3 (12/08/18) Neutro Absolute: 3.4 (12/08/18) Neutro Auto: 53.2 (12/08/18) POC Gluc Random: 374 mg/dL (12/30/18) RBC: 4.56 (12/08/18) RDW: 13.9 (12/08/18) Sed Rate: 13 (12/08/18) Total Protein: 7.6 (12/08/18) UA Mucus: Present (12/08/18) UA RBC Quant: 0 (12/08/18) UA Squepi Cells Quant: 1 (12/08/18) UA WBC Quant: 1 (12/08/18) Diagnostic Results ECG 12/08/18 with evidence of prior inferior CA Electronically signed by Doedelma PEREZ Marcia Fartun 12/30/18 23:17 EDT glucose prior to supper [...] on regular LR 80/hr. Electronically signed by Doedelma DO Marcia Fartun 12/30/18 23:19 EDT Normal [facility] MRSA, PCRon 12-30-2018 INR Coag (Bld) [Relative time] Negative Normal [facility] Comment on above: Result Comment: The Cep500pxid Xpert MRSA Assay is a qualitative in [...] to the clinician. Performed By: #### C BC #### [facility] [address] [place] [address] Operative Reporton 9 Operative Report Indication for Surgery Degenerative arthritis left knee Preoperative Diagnosis Degenerative arthritis left knee Postoperative Diagnosis Same Operation Left total knee replacement Parveen persona knee Persona CR 7 femoral component Persona stemmed E plateau 10 mm CR vitamin E poly- 32 mm vitamin E patellar dome Surgeon(s) Dr. Soraida Casey Stile Ripsaw Operator Ce Jodi Martinez PA Anesthesia Spinal Estimated Blood Loss 100 mL [...] go with a 32 mm patella dome. [place] holes were placed. The knee was then [...] Juan Casey MD 12/30/18 11:47 EDT Normal [facility] POC Glucose Randomon 019 Glucose [Mass/Vol] 374 mg/dL High 78-110 [facility] Comment on above: Performed By: #### C BC #### [address] [address] Glucose [Mass/Vol] 334 mg/dL High 78-110 [facility] Comment on above: Performed By: #### C BC #### [address] [address] Glucose [Mass/Vol] 141 mg/dL High 78-110 [facility] Comment on above: Performed By: #### C BC #### [address] [address] Glucose [Mass/Vol] 179 mg/dL High 78-110 [facility] Comment on above: Performed By: #### C [id number] #### [address] [address] C Urineon 12-10-2018 C Urine Final 20-30,000 cfu/ml Mixed gram positive ananth isolated. This urine contains 3 or more organisms which is inconsistent with clean catch collection. Consider the possibility of contamination during collection. No identification or susceptibility performed as results would be misleading Normal [facility] Comment on above: Performed By: #### U RC #### [place] [address] .UA Microscp Aon 12-08-2018 UA Mucus Present Abnormal Absent [facility] Comment on above: Performed By: #### C D:[id number] #### [place] [address] UA RBC Quant 0 /HPF Normal 0-5 [facility] Comment on above: Performed By: #### C D:[id number] #### [place] [address] UA Squepi Cells Quant 1 /HPF Normal 0-29 [facility] Comment on above: Performed By: #### C D:[id number] #### [place] [id number] UA WBC Quant 1 /HPF Normal 0-5 [facility] Comment on above: Performed By: #### C D:[id number] #### [place] [address] .eGFRon 12-08-2018 eGFR Non-AA >60 Normal >=60 [facility] Comment on above: Result Comment: Resu [...] dosing. Performed By: #### E GFR #### [address] [address] eGFR AA >60 Normal >=60 [facility] Comment on above: Result Comment: Resu lt = 0-14.9 mL/min/1.73 m2 Kidney failure or Dialysis Result = 15-29 mL/min/1.73 m2 Severe decrease in GFR Result = 30-59 mL/min/1.73 m2 Moderate decrease in GFR Result >= 60 mL/min/1.73 m2 Normal or increased GFR Performed By: #### E GFR #### [address] [address] CBC w/ Diffon 12-08-2018 Erythrocyte distribution wid th (RBC) [Ratio] 13.9 % Normal 11.6-14.8 [facility] Comment on above: Performed By: #### C BC #### [address] [address] Hematocrit (Bld) [Volume fraction] 39.7 % Normal 36.0-46.0 [facility] Comment on above: Performed By: #### C BC #### [address] [address] Hemoglobin (Bld) [Mass/Vol] 12.9 g/dL Normal 12.0-16. 0 [facility] Comment on above: Performed By: #### C BC #### [address] [address] MCH (RBC) [Entitic mass] 28.3 pg Normal 27.0-35.0 [facility] Comment on above: Performed By: #### C BC #### [address] [address] MCHC (RBC) [Mass/Vol] 32.5 % Normal 31.0-37.0 [facility] Comment on above: Performed By: #### C BC #### [address] [address] MCV (RBC) [Entitic vol] 87.1 fL Normal 80.0-100.0 B [facility] Comment on above: Performed By: #### C BC #### [address] [address] Platelet mean volume (Bld) [Entitic vol] 8.2 fL Normal 6.7-10.6 [facility] Comment on above: Performed By: #### C BC #### [address] [address] Platelets (Bld) [#/Vol] 218 x10*3/mcL Normal 150-350 [facility] Comment on above: Performed By: #### C BC #### [address] [address] RBC (Bld) [#/Vol] 4.56 x10*6/mcL Normal 3.80-5.20 [facility] Comment on above: Performed By: #### C BC #### [address] [address] WBC (Bld) [#/Vol] 6.5 x10*3/mcL Normal 4.5-11.0 [facility] Comment on above: Performed By: #### C BC #### [address] [address] CMPon 12-08-2018 Albumin [Mass/Vol] 4.0 g/dL Normal 3.2-4.9 [facility] Comment on above: Result Comment: [facility] Laboratory updated the methodology used for albumin testing on 05/13/18. Albumin measurement was performed using a bromcresol purple dye-binding assay. Performed By: #### C OMP #### [address] [address] Albumin/Globulin [Mass ratio] 1.1 {ratio} Normal 1.1-2 .2 [facility] Comment on above: Performed By: #### C OMP #### [address] [address] Alk Phos 58 IU/L Normal 32-91 [facility] Comment on above: Performed By: #### C OMP #### [address] [place] [address] ALT [Catalytic activity/Vol] 18 U/L Normal 14-54 [facility] Comment on above: Performed By: #### C OMP #### [address] [address] Anion gap [Moles/Vol] 15 mmol/L Normal 7-17 [facility] Comment on above: Performed By: #### C OMP #### [address] [address] AST [Catalytic activity/Vol] 20 U/L Normal 15-41 [facility] Comment on above: Performed By: #### C OMP #### [address] [address] Bili Total 0.6 mg/dL Normal 0.3-1.2 [facility] Comment on above: Performed By: #### C OMP #### [address] [address] Calcium [Mass/Vol] 9.2 mg/dL Normal 8.5-10.3 [facility] Comment on above: Performed By: #### C OMP #### [address] [address] Chloride [Moles/Vol] 100 mmol/L Normal 98-110 [facility] Comment on above: Performed By: #### C OMP #### [address] [address] CO2 [Moles/Vol] 25 mmol/L Normal 22-32 [facility] Comment on above: Performed By: #### C OMP #### [address] [address] Creatinine [Mass/Vol] 0.63 mg/dL Normal 0.44-1.03 [facility] Comment on above: Performed By: #### C OMP #### [address] [address] Glucose [Mass/Vol] 156 mg/dL High 74-118 [facility] Comment on above: Performed By: #### C OMP #### [address] [address] Potassium [Moles/Vol] 4.0 mmol/L Normal 3.4-4.8 [facility] Comment on above: Performed By: #### C OMP #### [address] [address] Protein [Mass/Vol] 7.6 g/dL Normal 6.5-8.1 [facility] Comment on above: Performed By: #### C OMP #### [address] [address] Sodium [Moles/Vol] 136 mmol/L Normal 133-142 [facility] Comment on above: Performed By: #### C OMP #### [address] [address] Urea nitrogen [Mass/Vol] 16 mg/dL Normal 8-26 [facility] Comment on above: Performed By: #### C OMP #### [address] [address] Urea nitrogen/Creatinine [Ma ss ratio] 25.4 mg/mg High 10.0-20.0 [facility] Comment on above: Performed By: #### C OMP #### [address] [address] Diff Autoon 12-08-2018 Baso Absolute 0.0 x10*3/mcL Normal 0.0-0.2 [facility] Comment on above: Performed By: #### . Automated Diff #### [address] [address] Basophils/100 WBC (Bld) 0.8 % Normal 0.0-1.5 B [facility] Comment on above: Performed By: #### . Automated Diff #### [address] [address] Eos Absolute 0.2 x10*3/mcL Normal 0.0-0.4 [facility] Comment on above: Performed By: #### . Automated Diff #### [address] [place] [address] Eosinophils/100 WBC (Bld) 2.8 % Normal 0.0-5.4 [facility] Comment on above: Performed By: #### . Automated Diff #### [address] [address] Lymphocytes (Bld) [#/Vol] 2.1 x10*3/mcL Normal 1.0-4.8 [facility] Comment on above: Performed By: #### . Automated Diff #### [address] [address] Lymphocytes/100 WBC (Bld) 32.9 % Normal 27.2-40.8 [facility] Comment on above: Performed By: #### . Automated Diff #### [address] [address] [place] Absolute 0.7 x10*3/mcL Normal 0.1-1.1 [facility] Comment on above: Performed By: #### . Automated Diff #### [address] [address] Monocytes/100 WBC (Bld) 10.3 % Normal 3.7-11.9 [facility] Comment on above: Performed By: #### . Automated Diff #### [address] [address] Neutro Absolute 3.4 x10*3/mcL Normal 1.8-7.7 [facility] Comment on above: Performed By: #### . Automated Diff #### [address] [address] Neutro Auto 53.2 % Normal 47.2-70.8 [facility] Comment on above: Performed By: #### . Automated Diff #### [address] [address] ESRon 12-08-2018 ESR (Bld) [Velocity] 13 mm/h Normal 0-30 [facility] Comment on above: Performed By: #### E SR #### [address] [address] Hgb A1con 12-08-2018 HbA1c (Bld) [Mass fraction] 7.7 % A1c High 4.0-6.0 [facility] Comment on above: Performed By: #### H BA1C #### [address] [address] HbA1c (Bld) [Mass fraction] 174 mg/dL High 74-118 [facility] Comment on above: Result Comment: Math ematical Calc approx. The mean gluc equivalency of A1c Performed By: #### H BA1C #### [address] [address] UA Routine without Cultureon 12-08-2018 Color (U) Yellow Normal [facility] Comment on above: Performed By: #### C D:[id number] #### [address] [address] Glucose (U) [Mass/Vol] Negative Normal Negative [facility] Comment on above: Performed By: #### C [id number] #### [address] [address] Ketones Ql (U) Negative Normal Negative [facility] Comment on above: Performed By: #### C D:[id number] #### [address] [address] UA Blood Small Abnormal Negative [facility] Comment on above: Performed By: #### C [id number] #### [address] [address] UA Clarity Clear Normal [facility] Comment on above: Performed By: #### C D:[id number] #### [address] [address] UA Leukocyte Esterase Trace Abnormal Negative [facility] Comment on above: Performed By: #### C D:[id number] #### [address] [address] UA Nitrite Negative Normal Negative [facility] Comment on above: Performed By: #### C D:[id number] #### [facility] [address] [place] [address] UA pH 5.0 Normal 4.5 - 7.8 [facility] Comment on above: Performed By: #### C D:[id number] #### [address] [address] UA Protein Negative Normal Negative [facility] Comment on above: Performed By: #### C D:[id number] #### [address] [address] UA Spec Grav 1.018 Normal 1.003-1.03 5 [facility] Comment on above: Performed By: #### C D:[id number] #### [address] [address] UA Urobilinogen 0.2 mg/dL Normal 0.2 - 1.0 [facility] Comment on above: Performed By: #### C D:[id number] #### [address] [address] Urobilinogen Qn (U) Negative Normal Negative [facility] Comment on above: Performed By: #### C D:[id number] #### [address] [address] Vital Signs Date Time Vital Sign Value Performing Clinician Facility 12-08-2023 09:58-0500 Body height 162.6 cm Narinder Rivas MD Work Phone: [facility] 12-08-2023 09:58-0500 Body mass index (BMI) [Ratio] 33.99 kg/m2 Narinder Rivas MD Work Phone: [facility] 12-08-2023 09:58-0500 Body weight 89.81 kg Narinder Rivas MD Work Phone: [facility] 12-08-2023 09:58-0500 Diastolic blood pressure 98 mm[Hg] Narinder Rivas MD Work Phone: [facility] 12-08-2023 09:58-0500 Heart rate 95 /min Narinder Rivas MD Work Phone: [facility] 12-08-2023 09:58-0500 SaO2% (BldA) [Mass fraction] 96 % Narinder Rivas MD Work Phone: [facility] 12-08-2023 09:58-0500 Systolic blood pressure 158 mm[Hg] [facility] 12-02-2023 10:52-0500 Body height 162.6 cm Sergo Sibley MD Work Phone: [facility] 12-02-2023 10:52-0500 Body mass index (BMI) [Ratio] 34.33 kg/m2 Sergo Sibley MD Work Phone: [facility] 12-02-2023 10:52-0500 Body weight 90.72 kg Sergo Sibley MD Work Phone: [facility] 12-02-2023 10:52-0500 Diastolic blood pressure 92 mm[Hg] Sergo Sibley MD Work Phone: [employer] 12-02-2023 10:52-0500 Heart rate 95 /min Sergo Sibley MD Work Phone: [employer] 12-02-2023 10:52-0500 SaO2% (BldA) [Mass fraction] 96 % Sergo Sibley MD Work Phone: [employer] 12-02-2023 10:52-0500 Systolic blood pressure 160 mm[Hg] Sergo Sibley MD Work Phone: [facility] 05-29-2022 14:30-0400 Body height 162.56 cm Krishan Madrid Other [employer] Other 05-29-2022 14:30-0400 Body mass index (BMI) [Ratio] 35.36 kg/m2 Krishan Madrid Other [employer] Other 05-29-2022 14:30-0400 Body weight 93.44 kg Krishan Madrid Other [employer] Other 04-03-2021 10:30-0400 Diastolic blood pressure 66 mm[Hg] Jairo Fisher MD Work Phone: [employer] Work Phone: 04-03-2021 10:30-0400 Heart rate 75 /min Jairo Fisher MD Work Phone: [employer] Work Phone: 04-03-2021 10:30-0400 Respiratory rate 18 /min Jairo Fisher MD Work Phone: [employer] Work Phone: 04-03-2021 10:30-0400 SaO2% (BldA) [Mass fraction] 94 % Jairo Fisher MD Work Phone: [employer] Work Phone: 04-03-2021 10:30-0400 Systolic blood pressure 118 mm[Hg] Jairo Fisher MD Work Phone: [employer] Work Phone: 04-03-2021 10:09-0400 Body temperature 97.39 [degF] Jairo Fisher MD Work Phone: [employer] Work Phone: 04-03-2021 08:45-0400 Body mass index (BMI) [Ratio] 36.05 kg/m2 Jairo Fisher MD Work Phone: [employer] Work Phone: 04-03-2021 08:45-0400 Body weight 95.25 kg Jairo Fisher MD Work Phone: [employer] Work Phone: 03-13-2021 14:25-0400 Body height 162.6 cm Jairo Fisher MD Work Phone: [facility] Work Phone: Encounters Encounter Date Encounter Type Care Provider Facility Start: 12-12-2023 ambulatory Facility:Elma Connor Start: 12-10-2023 Telephone encounter Narinder villeda MD Work Phone: [facility] Division of [facility] - Sleep Disorders Comment on above: Sleep Lab (PSG) Start: 12-08-2023 End: 12-08-2023 ambulatory [facility] Start: 12-08-2023 End: 12-08-2023 Office outpatient new 45 minutes Narinder Rivas MD Work Phone: [facility] Pulmonary/Sleep Medicine Comment on above: Pulmonary nodule (Pr imary Dx); HERMILA (obstructive sleep apnea); Obesity (BMI 30-39.9) Start: 12-02-2023 End: 12-02-2023 Office outpatient visit 15 minutes David Ybarra MD Work Phone: [facility] Cardiology Comment on above: Other chest pain (Pr imary Dx); Essential hypertension Start: 11-18-2023 ambulatory [facility] Start: 10-26-2023 End: 10-27-2023 Emergency department patient visit JENI CATALAN [facility] Start: 10-21-2023 End: 10-21-2023 ambulatory KAYLA Madisyn DICKSON Not Available Start: 09-28-2023 End: 09-29-2023 Emergency department patient visit BRUCE GODWIN [facility] Start: 09-28-2023 End: 09-28-2023 Emergency department patient visit [facility] Start: 09-24-2023 End: 09-25-2023 Emergency department patient visit HERMILO CUMMINGS [facility] Start: 05-15-2023 End: 05-16-2023 ambulatory HANNAH SOLER [facility] Start: 01-05-2023 End: 01-05-[address] LARISA WORRELL . Facility:[facility] Start: 05-29-2022 End: 05-29-2022 ambulatory Krishan Madrid Other [facility] [employer] Other Start: 05-29-2022 Office outpatient vi sit 15 minutes Krishan Madrid [facility] Neurosurgery Start: 04-18-2022 End: 04-18-2022 Subsequent hospital visit by physician Gloria Omalley DO Work Phone: [facility] Start: 04-10-2022 End: 04-11-[address] MOSS MISC Facility:[facility] Start: 03-26-[address] MOSS MISC Facility :[facility] Start: 02-11-2022 End: 02-12-[address] MOSS MISC Facility:[facility] Start: 04-03-2021 End: 04-03-2021 Subsequent hospital visit by physician Jairo Fisher MD Work Phone: [facility] Start: 09-07-2020 End: 09-07-2020 [facility] Start: 12-06-2019 End: 12-06-2019 Subsequent hospital visit by physician Jeni Antonio [facility] Comment on above: Encounter for well w domonique exam with routine gynecological exam Start: 07-14-2019 End: 07-15-2019 Evaluation and management of inpatient JUAN JIMENES CARMELA Facility:[facility] Start: 07-02-2019 End: 07-03-2019 Patient encounter procedure JUANJOSE J JIMENES CARMELA Facility:[facility] Start: 12-30-2018 End: 12-31-2018 Patient encounter procedure JUANJOSE J JIMENES CARMELA Facility:[facility] Start: 12-08-2018 End: 12-09-2018 Patient encounter procedure JUAN COOKIE CARMELA Facility:[facility] Start: 06-15-2018 Patient encounter status Abdulaziz Sibley MD Work Phone: [employer] Start: 12-22-2017 End: 12-23-2017 Ambulatory DEFAULT PHYSICIAN Facility:[facility] Start: 07-19-2013 End: 05-04-2020 Patient encounter status Jairo Fisher MD Work Phone: [facility] Procedures Date Procedure Procedure Detail Performing Clinician Start: 06-22-2021 Adult depression screening assessment Sergo Sibley MD Work Phone: Start: 04-03-2021 End: 04-03-2021 Colonoscopy Jairo Fisher MD Work Phone: Start: 04-03-2021 Esophagogastroduodenoscopy Jairo matos MD Work Phone: Start: 09-07-2020 Dual energy X-ray photon absorptiometry STAFF, NON Start: 12-21-2012 History of operative procedure on knee S/P right unicompartmental knee replacement Jairo Fisher MD Work Phone: Plan of Treatment Date Care Activity Detail Author Start: 06-14-2026 DTaP,Tdap and Td Vaccines (2 - Tdap) DTaP,Tdap and Td Vaccines (2 - Tdap) [facility] Start: 06-14-2026 DTaP/Tdap/Td vaccine (2 - Tdap) DTaP/Tdap/Td vaccine (2 - Tdap) [facility] Start: 04-03-2026 Screening for malignant neoplasm of colon [facility] Start: 12-07-2024 Adult BMI Screening Adult BMI Screening [facility] Start: 12-07-2024 Tobacco Screening Tobacco Screening [facility] Start: 12-02-2024 Adult BMI Screening Adult BMI Screening [facility] Start: 12-02-2024 Tobacco Screening Tobacco Screening [facility] Start: 01-14-2024 Adult BMI Follow Up Plan Adult BMI Follow Up Plan [facility] Start: 12-08-2023 End: 12-08-2023 Patient encounter procedure 12/08/2023 10:00 AM EST Office Visit [facility] [address] [place] [address] Narinder Rivas MD [address] [place] [address] [facility] Start: 06-06-2023 COVID-19 Vaccine ( season) COVID-19 Vaccine ( season) [facility] Start: 06-22-2022 Depression Screening Depression Screening [facility] Start: 06-06-2022 Influenza vaccination Flu vaccine (#1) [facility] [employer] Start: 04-04-2022 Depression Screen Depression Screen [employer] [facility] Start: 03-15-2022 Screening for malignant neoplasm of breast Breast cancer screen [facility] [employer] Start: 06-06-2021 Influenza vaccination Flu vaccine (Season Ended) [employer] Phone: Start: 04-14-2021 Diabetic retinal exam Diabetic retinal exam [employer] Phone: Comment on above: Postponed from 01/11/1960 (Not Indicated ) Start: 04-10-2021 End: 04-10-2021 Patient encounter procedure 04/10/2021 Office Visit General Surgery Jairo Fisher MD [address] [facility] [address] [place] [address] [facility] of [facility] Start: 04-04-2021 End: 04-04-2021 Patient encounter procedure 04/04/2021 Office Visit Obstetrics and Gynecology Inderjit Garcia MD [address] [place] [address] [address] [place] [address] [facility] Start: 04-04-2021 Annual Wellness Visit (AWV) Annual Wellness Visit (AWV) [employer] Phone: Comment on above: Postponed from 03/28/2019 (Not Indicated ) Start: 04-04-2021 Creatinine measurement Creatinine monitoring [employer] Phone: Comment on above: Postponed from 11/19/2018 (Not Indicated ) Start: 04-04-2021 Diabetic foot examination Diabetic foot exam [employer] Phone: Comment on above: Postponed from 01/11/1960 (Not Indicated ) Start: 04-04-2021 Diabetic microalbuminuria test Diabetic microalbuminuria test [employer] Phone: Comment on above: Postponed from 01/11/1968 (Not Indicated ) Start: 04-04-2021 Hemoglobin A1c measurement A1C test (Diabetic or Prediabetic) [employer] Phone: Comment on above: Postponed from 01/11/1960 (Not Indicated ) Start: 04-04-2021 [facility]id [facility]: Comment on above: Postponed from 01/11/1960 (Not Indicated ) Start: 04-04-2021 Potassium monitoring Potassium [facility] Phone: Comment on above: Postponed from 11/19/2018 (Not Indicated ) Start: 03-15-2020 Colon cancer screen colonoscopy Colon cancer screen colonoscopy [place] Start: 03-28-2019 Annual Wellness Visit (AWV) Annual Wellness Visit (AWV) [place] Start: 11-19-2018 Creatinine monitoring Creatinine monitoring [place], [place] Start: 11-19-2018 Potassium monitoring Potassium monitoring [place] Start: 10-11-2017 Breast cancer screen Breast cancer screen [place] Start: 07-14-2017 Pneumococcal 65+ years Vaccine (2 of 2 - PPSV23) Pneumococcal 65+ years Vaccine (2 of 2 - PPSV23) [place] Start: 09-08-2015 Shingles Vaccine (2 of 3) Shingles Vaccine (2 of 3) [place], [place] Start: 2015 DEXA (modify frequency per FRAX score) DEXA (modify frequency per FRAX score) [place] Start: 2015 Fall Risk Screening Fall Risk Screening [facility] Start: 2005 Screening for osteoporosis DEXA (modify frequency per FRAX score) [facility] Start: 1995 Screening for malignant neoplasm of colon [facility] Start: 1969 Hepatitis B vaccine (1 of 3 - Risk 3-dose series) Hepatitis B vaccine (1 of 3 - Risk 3-dose series) [place] Start: 01-11-1968 Diabetic foot examination Diabetic Foot Exam [facility] Start: 01-11-1968 Diabetic microalbuminuria test Diabetic microalbuminuria test [place] Start: 01-11-1968 Diabetic retinal exam Diabetic retinal exam [facility] Start: 01-11-1968 Hepatitis C screening Hepatitis C screen [facility] Start: 01-11-1968 Urine screening for protein Diabetic microalbuminuria test [facility] Start: 1962 COVID-19 Vaccine (1) COVID-19 Vaccine (1) [facility] [email or web address] Phone: Start: 01-11-1960 [object Object] Diabetic foot exam [place] Start: 01-11-1960 A1C test (Diabetic or Prediabetic) A1C test (Diabetic or Prediabetic) [place] Start: 01-11-1960 Diabetic foot examination Diabetic foot exam [employer] [facility] Start: 01-11-1960 Diabetic retinal exam Diabetic retinal exam [place], [place] Start: 01-11-1960 Hemoglobin A1c measurement A1C test (Diabetic or Prediabetic) [facility] Start: 01-11-1960 Lipid panel Lipids [facility] Start: 01-11-1960 Lipid screen Lipid screen [place] Start: 1955 COVID-19 Vaccine (1) COVID-19 Vaccine (1) [facility] Start: 1950 Annual Wellness Visit (AWV) Annual Wellness Visit (AWV) [facility] Start: 1950 Glaucoma screening Diabetic Ophthalmology Exam [facility] Start: 1950 Hepatitis C screen Hepatitis C screen [place], [place] Start: 1950 Hepatitis C screening Hepatitis C screen [facility] [email or web address] Phone: Start: 1950 Medicare Annual Wellness Visit Medicare Annual Wellness Visit [facility] End: 12-06-2019 Cytopathology procedure, preparation of smear, genital source PAP SMEAR Lab Routine Encounter for well woman exam with routine gynecological exam 1 Occurrences starting 12/06/2019 until 12/06/2019 [place] Comment on above: 1 Occurrences starting 12/06/2019 until 12/06/2019 End: 04-03-2021 Glucose [Mass/volume] in Serum or Plasma POCT glucose Point of Care Testing STAT One Time for 1 Occurrences starting 04/03/2021 until 04/03/2021 [employer] Phone: Comment on above: One Time for 1 Occurrences starting 03/07 until 04/03/2021 [employer]I [employer] Work Phone: Comment on above: Release Upon Ordering for 1 Occurrences starting 04/03/2021 End: 04-03-2021 Protime-INR Protime-INR Lab STAT One Time for 1 Occurrences starting 04/03/2021 until 04/03/2021 [employer] Phone: Comment on above: One Time for 1 Occurrences starting 03/07 until 04/03/2021 End: 12-07-2024 PSG Diagnostic [facility] Routine HERMILA (obstructive sleep apnea) 1 Occurrences starting 12/08/2023 until 12/07/2024 [facility] Work Phone: Comment on above: 1 Occurrences starting 12/08/2023 until 12/07/2024 Surgical Pathology Surgical Path ology Lab Routine Release Upon Ordering for 1 Occurrences starting 04/03/2021 [employer] Phone: Comment on above: Release Upon Ordering for 1 Occurrences starting 04/03/2021 Immunizations Immunization Date Immunization Notes Care Provider Rhea peguero 07-14-2016 pneumococcal conjuga te vaccine, 13 valent Jeniomid Antonio SAR[facility] 06-14-2016 diphtheria, tetanus toxoids and acellular pertussis vaccine [place]id [place] 07-14-2015 zoster vaccine, live [place], [place] Payers Date Payer Category Payer Medicare [id number] 2019 Medicare MEDICARE MEDICAR E PART A AND B xxxxxxxxxxx 2019-Present [phone] [place] [address] xxxxxxxxxxx [id number] 2019 Medicare 2018 Unknown 2017 Unknown [id number] 1990 Medicare [id number] 1959 Medicare [id number] 1950 Unknown [id number] [id number] 1950 Unknown [id number] 2.16.840.1.362911.3.579.2.196 1950 Unknown [id number] 2.16.840.1.664488.3.579.2.196 1950 Unknown [id number] 2.16.840.1.022136.3.579.2.196 1950 Unknown [id number] 2.16.840.1.050356.3.579.2.593 1950 Unknown [id number] 2.16.840.1.659321.3.579.2.593 1950 Unknown [id number] 2.16.840.1.629525.3.579.2.593 1950 Unknown [id number] 2.16.840.1.355272.3.579.2.593 1950 Unknown [id number] 2.16.840.1.203682.3.579.2.173 1950 Unknown [id number] 2.16.840.1.847987.3.579.2.125 9 1950 Unknown [id number] 2.16.840.1.324829.3.579.2.128 6 1950 Unknown [id number] 2.16.840.1.971128.3.579.2.128 6 1950 Unknown [id number] 2.16.840.1.754242.3.579.2.128 6 1950 Unknown [id number] 2.16.840.1.384718.3.579.2.128 6 1950 Unknown [id number] 2.16.840.1.203329.3.579.2.128 6 1950 Unknown [id number] 2.16.840.1.353405.3.579.2.128 6 1950 Unknown [id number] 2.16.840.1.826203.3.579.2.128 6 1950 Unknown [id number] 2.16.840.1.728055.3.579.2.128 6 1950 Unknown [id number] 2.16.840.1.332453.3.579.2.128 6 1950 Unknown [id number] 2.16.840.1.058856.3.579.2.128 6 Medicaid Self Pay [id number] Self-pay Self Pay [id number] Social History Date Type Detail Facility Start: 12-06-2019 End: 12-24-2022 Tobacco smoking status NHIS Never smoker [place] Start: 12-06-2019 End: 04-18-2022 Alcohol intake Current non-drinker of alcohol (finding) [place], [place] Start: 1950 Sex Assigned At Not on file [place], [place] Start: 1950 Sex Assigned At Female F [facility] Start: 04-03-2021 End: 12-24-2022 Tobacco use and exposure Never used [facility] Exposure to SARS-CoV -2 (event) Not sure [facility] Start: 10-28-2020 End: 12-02-2023 Sex Assigned At [facility] Start: 12-02-2023 End: 12-08-2023 Alcohol intake Ex-drinker (finding) [facility] Start: 10-28-2020 End: 12-02-2023 History of Social function [facility] Adolescent depressio n screening assessment 0 [facility] Medical Equipment Procedure Code Equipment Code Equipment Origin al Text Equipment Identifier Dates Mesh Srg Bard [id number] Hrn Sft Rpl [id number] - [id number] Start: 06-15-2018 Goals Date Patient Goal Desired Activity /State Clinical Notes 04-03-2021 to 12-10-2023 Telephone Encounter - Radha Landers - 12/10/2023 9:50 AM ESTTelephone Encounter - Radha Landers - 12/10/2023 9:50 AM Maurisio Rivas MD - 12/08/2023 10:00 AM EST Note Date & Type Note Facility 12-10-2023 Miscellaneous Notes 3/ received PSG order 12/09 patient will call back to schedule, sent letter with main phone number. Order Deferred PSG order and 3/4 Taleb notes in epic documented in this encounter [facility] 12-10-2023 Telephone encounter Note 3/4 received PSG order 3 patient will call back to schedule, sent letter with main phone number. Order Deferred PSG order and 3/4 Taleb notes in epic [facility] 12-08-2023 History of Presen t illness Narrative Images from the original note were not included. [facility] PULMONARY/SLEEP MEDICINE [address] [address] Subjective: Chief Complaint Pulmonary nodules HPI The patient is 73-year-old female who is here as a new patient. She was referred to us because of abnormal CT scan of the chest. She hadCT scan of the chest that was done in [facility] on 11/18/2023 showed multiple bilateral lung nodules, tiny, largest 4 mm. Patient denies any shortness a breath. Patient never smoked. Patient had diagnostic sleep study on 02/01/2021 The apnea-hypopnea index (AHI) is 31.9 (AAS) / 14 ([facility]) events per hour, and the lowest saturation during the night is 75%. The overall respiratory disturbance index (RDI) is 31.9/14/hr, with an AHI of 28.5/13.5/hr in the supine position, and 86.6/67.8 in REM sleep. Snoring is documented and is loud at times. She had PAP machine at home however she could not tolerate it. She could not sleep with it and she does not want to be on it. She used it for short period of time only. The patient lost weight. She continues to have symptoms of sleep apnea however improved since 3 years. She feels tired during the day, she would like to take naps however she does not doze much during the day. She says that she sleeps easily at night. She does snore. She is asking about inspire if that is possible. Her BMI 33.9 and she is trying to lose more weight. Review of Systems Respiratory: Negative for cough, shortness of breath, wheezing and stridor. Allergies: Honey, Penicillins, and Definity [perflutren lipid microspheres] Past Medical History: Diagnosis Date Deep vein thrombosis ([facility]) Diabetes mellitus type 2, controlled ([facility]) GERD (gastroesophageal reflux disease) Hyperlipidemia Hypertension Renal cyst 11/16/2019 Schizophrenia simplex ([facility]) Past Surgical History: Procedure Laterality Date BACK SURGERY 2014 fatty lipoma removed from back BREAST BIOPSY Left 2006 benign CHOLECYSTECTOMY COLONOSCOPY W/ POLYPECTOMY 2014 benign CYSTOSCOPY N/A 08/05/2023 Performed by Seb Aguirre MD at [facility] CYSTOSCOPY N/A 12/01/2018 Performed by Seb Aguirre MD at [facility] HIP SURGERY Left INCISIONAL HERNIA REPAIR 2009, 2016 INJECTION BLOCK EPIDURAL CAUDAL STEROID N/A 06/08/2021 Performed by Km Barba MD at [facility] INJECTION BLOCK EPIDURAL CAUDAL STEROID N/A 04/27/2021 Performed by Km Barba MD at [facility] INJECTION BLOCK NERVE MEDIAL BRANCH: bilat L 01/08/ mbb Bilateral 01/19/2021 Performed by Km Barba MD at [facility] INJECTION BLOCK NERVE MEDIAL BRANCH: Bilat L 4/5 5/ mbb Bilateral 12/01/2020 Performed by Km Barba MD at [facility] KNEE ARTHROSCOPY Bilateral KNEE SURGERY left total knee RADIOFREQUENCY ABLATION SPINAL: left L 4/5 5/ Left 03/09/2021 Performed by Km Barba MD at [facility] RADIOFREQUENCY ABLATION SPINAL: right L 4/5 / Right 02/23/2021 Performed by Km Barba MD at [facility] REPAIR OF RECURRENT ABDOMINAL HERNIA WITH BARD SOFT MESH, EXPLANTATION OF OLD MESH, T.A.R. PROCEDURE N/A 06/15/2018 Performed by Jose Vasquez MD at [facility] TOTAL KNEE Right VAGINAL HYSTERECTOMY 1977 menorrhagia ? Social History Tobacco Use Smoking Status Never Smokeless Tobacco Never Social History Substance and Sexual Activity Alcohol Use Not Currently Social History Substance and Sexual Activity Drug Use No Social History Substance and Sexual Activity Sexual Activity Defer ? Family History Problem Relation Age of Onset Breast cancer Mother unk age Lung disease Mother Breast cancer Sister unk age Diabetes Maternal Grandmother Bleeding Disorder Neg Hx Clotting disorder Neg Hx Anesthesia problems Neg Hx Ovarian cancer Neg Hx Colon cancer Neg Hx Heart attack Neg Hx Stroke Neg Hx [place] Breast Cancer Neg Hx Social History Tobacco Use Smoking status: Never Smokeless tobacco: Never Substance Use Topics Alcohol use: Not Currently Objective: Vitals: 12/08/23 0958 BP: (!) 158/98 Pulse: 95 SpO2: 96% Physical Exam Vitals and nursing note reviewed. Constitutional: General: She is not in acute distress. Appearance: Normal appearance. She is not ill-appearing or toxic-appearing. HENT: Head: Normocephalic and atraumatic. Nose: Nose normal. No rhinorrhea. Mouth/Throat: Mouth: Mucous membranes are moist. Eyes: Extraocular Movements: Extraocular movements intact. Cardiovascular: Rate and Rhythm: Normal rate and regular rhythm. Heart sounds: Normal heart sounds. No murmur heard. Pulmonary: Effort: Pulmonary effort is normal. No respiratory distress. Breath sounds: Normal breath sounds. No stridor. No wheezing, rhonchi or rales. Chest: Chest wall: No tenderness. Abdominal: Palpations: Abdomen is soft. Musculoskeletal: Cervical back: Neck supple. Skin: General: Skin is warm and dry. Coloration: Skin is not jaundiced or pale. Neurological: Mental Status: She is alert. Most recent Labs, images were reviewed and independently verified. Assessment/Plan: Impression Multiple bilateral pulmonary nodules, largest 4 mm in low risk patient. Obstructive sleep apnea. BMI 33.9 Kyphosis Recommendations No need for follow-up on the lung nodules. Patient is low risk for lung cancer. The patient did not tolerate PAP therapy in the past. She is open to [facility]. Her sleep study is more than 2 years ago. We will repeat sleep study and to follow up with sleep medicine. She was encouraged to lose more weight. CT chest findings were explained to the patient. Patient was advised to stay active. Discussed the plan of care in details with the patient. Follow-up As needed Thank you for involving me in this patient's care. Narinder Rivas MD. Pulmonary and Critical Care Physician 12/08/23. Please note that portions of this note were generated using voice recognition [email or web address] dictation software. Although every effort was made to ensure the accuracy of this automated travel director, some errors in travel director may have occurred. documented in this encounter [facility] 12-02-2023 History of Presen t illness Narrative Mari Dimas Yaquelin Date of visit: 12/02/2023 Date of : 1950 Age: 73 y.o. Patient Active Problem List Diagnosis Diabetes mellitus ([facility]) Hyperlipidemia Essential hypertension Obesity, Class III, BMI 40-49.9 (morbid obesity) ([facility]) Osteoarthritis of right knee S/P right unicompartmental knee replacement Recurrent ventral hernia Pre-op testing Mixed stress and urge urinary incontinence Severe obesity (BMI 35.0-39.9) with comorbidity ([facility]) Lumbosacral spondylosis without myelopathy Renal cyst Other chest pain Tachyarrhythmia Obesity (BMI 35.0-39.9 without comorbidity) Disc displacement, lumbar Obesity (BMI 30-39.9) Recurrent UTI Chest pain, unspecified type Allergies Allergen Reactions Honey Swelling Penicillins Hives and Nausea Definity [Perflutren Lipid Microspheres] Current Outpatient Medications Medication Sig Dispense Refill acetaminophen (TYLENOL ARTHRITIS) 650 mg 8 hr tablet as needed. atorvastatin (LIPITOR) 10 mg tablet Take 1 tablet (10 mg total) by mouth in the morning. benzonatate (TESSALON PERLES) 100 mg capsule Take 1 capsule (100 mg total) by mouth every 8 (eight) hours. 21 capsule 0 CALCIUM ORAL Take by mouth daily. carvediloL (COREG) 25 mg tablet Take 1 tablet (25 mg total) by mouth in the morning and 1 tablet (25 mg total) before bedtime. 180 tablet 3 dulaglutide (TRULICITY) 0.75 mg/0.5 mL pen injector Inject under the skin every 7 days. fluticasone propionate (FLONASE) 50 mcg/actuation nasal spray Administer 1 spray into each nostril in the morning. 16 g 0 glyBURIDE (DIABETA) 5 mg tablet Take 1 tablet (5 mg total) by mouth as needed. lisinopril (PRINIVIL,ZESTRIL) 40 mg tablet Take 1 tablet (40 mg total) by mouth in the morning. metFORMIN (GLUCOPHAGE) 500 mg tablet Take 1 tablet (500 mg total) by mouth in the morning and 1 tablet (500 mg total) before bedtime. Indications: type 2 diabetes mellitus. miscellaneous medical [place] [facility] [place] pseudoephedrine-guaiFENesin (MUCINEX D) 60-600 mg per 12 hr tablet Take 1 tablet by mouth every 12 (twelve) hours. 15 tablet 0 sodium chloride (OCEAN) 0.65 % nasal spray Administer 1 spray into each nostril as needed for congestion. 15 mL 0 No current facility-administered medications for this visit. Chief Complaint Patient presents with Follow-up EST PT F/U 1 YR L/S MS History of Present Illness Patient is here for follow-up. She has not having any chest pain. Breathing is stable. She forgot to take her antihypertensives this morning. Systolic [place] 72719 mmHg at home. She actually physically feels well. She has been stressed out about her who has cognitive issues. No orthopnea. No PND. Past Medical History: Diagnosis Date Deep vein thrombosis ([facility] [place] Diabetes mellitus type 2, controlled ([facility] [place]) GERD (gastroesophageal reflux disease) Hyperlipidemia Hypertension Renal cyst 11/16/2019 Schizophrenia simplex ([facility] [place]) No data recorded No data recorded No data recorded Past Surgical History: Procedure Laterality Date BACK SURGERY 2014 fatty lipoma removed from back BREAST BIOPSY Left 2006 benign CHOLECYSTECTOMY COLONOSCOPY W/ POLYPECTOMY 2014 benign CYSTOSCOPY N/A 08/05/2023 Performed by Seb Aguirre MD at [facility] CYSTOSCOPY N/A 12/01/2018 Performed by Seb Aguirre MD at [facility] HIP SURGERY Left INCISIONAL HERNIA REPAIR 2009, 2016 INJECTION BLOCK EPIDURAL CAUDAL STEROID N/A 06/08/2021 Performed by Km Barba MD at [facility] INJECTION BLOCK EPIDURAL CAUDAL STEROID N/A 04/27/2021 Performed by Km Barba MD at [facility] INJECTION BLOCK NERVE MEDIAL BRANCH: bilat L 4/5 5/1 mbb Bilateral 01/19/2021 Performed by Km Barba MD at [facility] INJECTION BLOCK NERVE MEDIAL BRANCH: Bilat L 4/5 5/1 mbb Bilateral 12/01/2020 Performed by Km Barba MD at [facility] KNEE ARTHROSCOPY Bilateral KNEE SURGERY left total knee RADIOFREQUENCY ABLATION SPINAL: left L 4/5 5/1 Left 03/09/2021 Performed by Km Barba MD at [facility] RADIOFREQUENCY ABLATION SPINAL: right L 4/5 5/1 Right 02/23/2021 Performed by Km Barba MD at [facility] REPAIR OF RECURRENT ABDOMINAL HERNIA WITH BARD SOFT MESH, EXPLANTATION OF OLD MESH, T.A.R. PROCEDURE N/A 06/15/2018 Performed by Jose Vasquez MD at [facility] TOTAL KNEE Right VAGINAL HYSTERECTOMY 1976 menorrhagia Family History Problem Relation Age of Onset Breast cancer Mother unk age Lung disease Mother Breast cancer Sister unk age Diabetes Maternal Grandmother Bleeding Disorder Neg Hx Clotting disorder Neg Hx Anesthesia problems Neg Hx Ovarian cancer Neg Hx Colon cancer Neg Hx Heart attack Neg Hx Stroke Neg Hx [place] Breast Cancer Neg Hx Social History Socioeconomic History Marital status: Spouse name: Not on file Number of children: Not on file Years of education: Not on file Highest education level: Not on file Occupational History Not on file Tobacco Use Smoking status: Never Smokeless tobacco: Never Vaping Use Vaping Use: Never used Substance and Sexual Activity Alcohol use: Not Currently Drug use: No Sexual activity: Defer Other Topics Concern Caffeine Use No Social History Narrative Lives with spouse. Social Determinants of Health Financial Resource Strain: Not on file Food Insecurity: No Food Insecurity (12/02/2023) Hunger Screening Food Insecurity - Worry: Never True Food Insecurity - Inability: Never True Transportation Needs: Not on file Physical Activity: Not on file Stress: Not on file Social Connections: Not on file Interpersonal Safety: Not on file Housing Instability: Not on file Review of Systems Review of Systems Constitutional: Negative. HENT: Negative. Eyes: Negative. Cardiovascular: Positive for palpitations. Respiratory: Negative. Endocrine: Negative. Hematologic/Lymphatic: Negative. Skin: Negative. Musculoskeletal: Positive for back pain. Gastrointestinal: Negative. Genitourinary: Negative. Neurological: Negative. Psychiatric/Behavioral: Negative. Allergic/Immunologic: Negative. Vascular: Negative. CARDIOVASCULAR: Please review HPI. Physical Examination General appearance: Alert, oriented and cooperative. In no acute distress. Skin: Warm and dry to touch. Head: Normocephalic, without obvious abnormality, atraumatic. Ears, Nose, Mouth, Throat: Throat clear without erythema or exudate. Dentition intact. Eyes: Conjunctivae unremarkable, EOM intact. Neck: Neck supple, trachea midline. Respiratory: Clear to auscultation bilaterally, no use of accessory muscles. Cardiovascular: RRR with normal S1 and S2 with no murmurs. Gastrointestinal: Soft, non-tender. Bowel sounds normal. Musculoskeletal: No peripheral edema. VITAL SIGNS: BP (!) 160/92 (BP Site: Left Arm, BP Postition: Sitting) Pulse 95 Ht 162.6 cm (5' 4 ) Wt 90.7 kg (200 lb) SpO2 96% BMI 34.33 kg/m Orders Placed or Reconciled This Encounter Medications dulaglutide (TRULICITY) 0.75 mg/0.5 mL pen injector Sig: Inject under the skin every 7 days. Medications Discontinued During This Encounter Medication Reason aspirin 81 mg clotrimazole (LOTRIMIN) 1 % cream estradioL (ESTRACE) 0.01 % (0.1 mg/gram) vaginal cream lidocaine (LIDODERM) 5 % IMPRESSIONS/PLAN 1. Other chest pain 2. Essential hypertension 1. Hx atypical chest pain. Low risk SPECT with normal EF MPI 02/2021 2. Normal coronaries [facility] 2013 3. Normal EF TTE 02/2021 4. HTN 5. DM II 6. Obesity BMI 34; HERMILA 7. Fall 10/26/23, CT scan of the chest She has not having any active cardiac symptoms. Blood pressure is well controlled at home. She is on statin therapy in light of her diabetes mellitus and blood pressure is well controlled at home on lisinopril. I would not make any changes to her regimen can see her back yearly or as issues arise. TODAYS ORDERS No orders of the defined types were placed in this encounter. FOLLOW UP Return in about 1 year (around 12/02/2024). PCP: GLORIA OMALLEY DO Referring Physician: Gloria Omalley DO [address] [place] [address] documented in this encounter [facility] 05-29-2022 Evaluation note Encounter Date Diagnosis Assessment [...] an as-needed basis or is symptoms worsen. [email or web address] Other 06-29-2021 History of Present illness Narrative* Rimma Monroe RN - 04/03/2021 10:[address] Fisher spoke with pt and . [...] a responsible adult. Yes documented in this encounter[facility] Phone: evaluation note* Diagnosis GERD (gastroesophageal reflux disease)- Primary Esophageal reflux documented in this encounter [employer] Phone: evaluation note* Diagnosis Other chest pain- Primary Essential hypertension Unspecified essential hypertension documented in this encounter [facility]* Diagnosis Pulmonary nodule- Primary Other diseases of lung, not elsewhere classified HERMILA (obstructive sleep apnea) Obstructive sleep apnea (adult) (pediatric) Obesity (BMI 30-39.9) documented in this encounter [facility] SystemHistory general Narrative - Reported* Type Description Date Medical History GERD Medical History HTN Medical History history of DVT Surgical History LIPOMA Surgical History ventral hernia 2015,2017 Surgical History right incisional hernia Surgical History RT KNEE REPLACEMENT Surgical History HERNIA REPAIR Surgical History lap choley Surgical History CHOLECYSTECTOMY Surgical History lipoma back Surgical History right total knee replacement Surgical History hysterectomy Hospitalization History See Sx Hx [employer] Other Hospital Discharge instructions* Instructions* Rimma Monroe RN - 04/03/2021 COLONOSCOPY DISCHARGE INSTRUCTIONS: It's [...] put into your stomach during the procedure. Thisshould pass in a few hours. May resume your regular diet. You will receive a letter or phone call with your test results in 2 weeks. If you have not receiveda letter or a phone call in 2 [...] the nearest Emergency Room. documented [facility] Work Phone: InstructionsNot on filedocumented in this encounter [facility] SystemInstructionsNot on filedocumented in this encounter [facility] SystemInstructionsNot on filedocumented in this encounter [facility] Summary Purpose Family History No Family History Records FoundNo Family History Records FoundNo Family History Records FoundNo Family History Records FoundNo Family History Records FoundNo Family History Records FoundNo Family History Records FoundNo Family History Records FoundNo Family History Records Found Advance Directives No Advanced Directives Records FoundDocuments on File Type Date Recorded 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 Advance Directives and Living Will Power of Computational Sciences Professor Latest Code Status on File Code Status Date Activated Date Inactivated Comments Full Code 12/21/2012 12:14 PM 12/24/2012 4:06 PM Advance Directive Response Recorded Date/ Time Advance Directives No August 11:18am Documents on File Type Date Recorded 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 ACP-Advance Directive ACP-Power of Computational Sciences Professor Latest Code Status on File Code Status Date Activated Date Inactivated Comments Full Code 04/03/2021 8:29 AM Full Code 12/21/2012 12:14 PM 12/24/2012 4:06 PM Documents on File Type Date Recorded 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 ACP-Advance Directive ACP-Power of Computational Sciences Professor Latest Code Status on File Code Status Date Activated Date Inactivated Comments Full Code 04/03/2021 8:29 AM 04/03/2021 1:01 PM Full Code 12/21/2012 12:14 PM 12/24/2012 4:06 PM Latest Code Status on File Code Status Date Activated Date Inactivated Comments Full Code 06/15/2018 3:10 PM 06/24/2018 6:17 PM Latest Code Status on File Code Status Date Activated Date Inactivated Comments Full Code 06/15/2018 3:10 PM 06/24/2018 6:17 PM Hospital Course Note Admission Information She [...] mg, 2 tabs, Oral, q8hr, PRN Prescriptions Garden 5 mg-325 mg oral tablet, 1 tabs, Oral, q6hr, PRN Xa (more content not included)... Assessments Diagnosis Encounter for well woman exam with routine gynecological exam Chief Complaint and Reason for Visit Chief Complaint z78.0 Reason for Referral Specialty Diagnoses / Procedures Referred By Tommy t Referred To Contact Diagnoses HERMILA (obstructive sleep apnea) Procedures PSG Diagnostic Narinder Rivas MD [address] [place] [address] Referral ID Status Reason Start Date Expiration Date V isits Requested Visits Authorized [id number] Pending Review 12/08/2023 12/07/2024 1 1 Additional Source Comments INFORMATION SOURCE (unrecogn ized section and content) DATE CREATED AUTHOR 03/27/2018 [facility] DATE CREATED AUTHOR AUTHOR'S ORGANIZ ATION 09/21/2019 [facility] DATE CREATED AUTHOR AUTHOR'S ORGANIZ ATION 01/08/2023 [facility] DATE CREATED AUTHOR AUTHOR'S ORGANIZ ATION 03/17/2023 [facility] dical Specialist DATE CREATED AUTHOR AUTHOR'S ORGANIZ ATION 05/17/2023 [facility] DATE CREATED AUTHOR AUTHOR'S ORGANIZ ATION 10/22/2023 [facility] d[facility] Specialists EPIC DATE CREATED AUTHOR AUTHOR'S ORGANIZ ATION 10/27/2023 [facility] DATE CREATED AUTHOR AUTHOR'S ORGANIZ ATION 12/09/2023 [facility] DATE CREATED AUTHOR AUTHOR'S ORGANIZ ATION 12/13/2023 [facility] Reason for Visit (unrecogniz ed section and content) Status Reason Specialty Diagnoses / Procedures Re ferred By Contact Referred To Contact Diagnoses Symptoms of gastroesophageal reflux Constipation REFLUX SYMPTOMS, CONSTIPATION Procedures RI COLONOSCOPY FLX DX W/COLLJ SPEC WHEN PFRMD RI ESOPHAGOGASTRODUODENOSCOPY TRANSORAL DIAGNOSTIC COLONOSCOPY DIAGNOSTIC EGD ESOPHAGOGASTRODUODENOSCOPY Jairo Fisher MD [address] [place] [address] [facility] Reason Comments Follow-up EST PT F/U 1 YR L/S MS Reason Comments New Patient CT: 4PFT: n oneSOB: noneTobacco Use: neverStarted Tobacco: n/aHx Sleep Apnea: Yes, not currently on PAP Therapy, patient states she does not want to be on PAP therapyPS02/01/2021 Specialty Diagnoses / Procedures Referred By Tommy monroe Referred To Contact Pulmonary Medicine Diagnoses Pulmonary nodule Gloria Omalley DO [address] [place] [address] [facility] Pulm Sleep Med [address] [facility] [place] [address] Referral ID Status Reason Start Date Expiration Date Visits Requested Visits Authorized [id number] Pending Review Specialty Services Required 11/10/2023 11/09/2024 1 1 Reason Onset Date Comments Sleep Lab 12/10/2023 PSG Ordered Prescriptions (unrec ognized section and content) [...] Pre-procedure(GI) 0924 (New Bag - Prov ider: AMMY Andrews CRNA)1002 (Stopped - Provider: AMMY Andrews CRNA)1035 (Stopped - Provider: Rimma Monroe RN) PRN [...] Care Teams (unrecognized sec tion and content) Instrumentation Supervisor Relationship Specialty Start Date End Date Gloria Omalley DO [address] [place] [address] PCP - General Family Medicine 05/09/21 Instrumentation Supervisor Relationship Specialty Start Date End Date Gloria Omalley DO [address] [facility] [address] PCP - General Family Medicine 03/28/23 Instrumentation Supervisor Relationship Specialty Start Date End Date Gloria Omalley DO [address] [place] [address] PCP - General Family Medicine 03/28/23 Instrumentation Supervisor Relationship Specialty Start Date End Date Gloria Omalley DO [address] [place] [address] PCP - General Family Medicine 03/28/23 FOR RECORDS PERTAINING TO PATIENTS WHO ARE [...] BE BASED ON THE PRIMARY CLINICAL RECORDS. [facility]. provides no warranty or guarantee of the accuracy or completeness of information in this document.
--- NOTE | 2024-01-18 11:45 | ED_ITS ---
HPI - Skin/Abscess/Foreign Bdy General Chief complaint: Skin/Abscess/Foreign Body Stated complaint: RASH ON STOMACH Time Seen by Provider: 01/18/24 11:03 Source: patient Mode of arrival: walk-in Limitations: no limitations History of Present Illness HPI narrative: The patient is coming to the ER for Anabela yeast infection rash that she has been dealing with for the last few weeks. Mentioned that it got worse and that the statin not helping anymore Related Data Home Medications ?Medication ?Instructions ?Recorded ?Confirmed atorvastatin 20 mg tablet 20 mg PO DAILY 10/31/23 01/18/24 carvedilol 25 mg tablet 25 mg PO BID 10/31/23 01/18/24 lisinopril 40 mg tablet 40 mg PO DAILY 10/31/23 01/18/24 metformin 500 mg tablet 500 mg PO BID 10/31/23 01/18/24 Allergies Allergy/AdvReac Type Severity Reaction Status Date / Time honey Allergy Severe Verified 09/21/23 15:02 Penicillins Allergy Severe Verified 09/21/23 15:02 Review of Systems ROS Status of ROS 10 or more systems reviewed and unremark able except as noted in history and below PFSH [facility] Social History Smoking status: Never smoker Exam Narrative Exam Narrative: Nurses notes and vital signs reviewed and patient is not hypoxic. General: Well-appearing and in no apparent distress. Skin: Warm, dry, no pallor noted. No rash. Head: Normocephalic, atraumatic. Neck: Supple, non-tender. Eye: Pupils are equal, round and EOMI. No scleral icterus. Ears, Nose, Mouth, and Throat: TM are clear, no nasal mucosal hypertrophy. Oral mucosa is moist, no posterior oropharynx erythema, uvula is mid-line Cardiovascular: Regular Rate and Rhythm without murmur, gallop or rub. Respiratory: No accessory muscle use or respiratory distress. Lungs are clear to auscultation, no wheezing, rales or rhonchi Chest Wall: no tenderness Back: No midline thoracic or lumbar vertebral tenderness. No CVA tenderness Musculoskeletal: normal ROM, no calf or popliteal tenderness, no lower extremity edema/swelling GI: Abdomen is soft, non-distended. Normal bowel sounds. No masses appreciated. No tenderness to palpation. No rebound, guarding, or rigidity noted. Neurological: A&O x4. No cranial nerve dysfunction observed. No truncal ataxia. Moves all extremities. Sensation intact. Psychiatric: Cooperative and interactive. Normal mood and affect. Skin examination The patient skin examination showed that she had macerated skin in between the skin folds mostly secondary to Anabela infection no signs of active infection Constitutional Vital Signs, click to edit/add: Last Vital Signs Temp 98.4 F 01/18/24 11:04 Pulse 102 H 01/18/24 11:04 Resp 18 01/18/24 11:04 BP 178/98 H 01/18/24 11:04 Pulse Ox 97 01/18/24 11:04 O2 Del Method Room Air 01/18/24 11:04 Course Vital Signs Vital signs: Vital Signs Temperature 98.4 F 01/18/24 11:04 Pulse Rate 102 H 01/18/24 11:04 Respiratory Rate 18 01/18/24 11:04 Blood Pressure 178/98 H 01/18/24 11:04 Pulse Oximetry 97 01/18/24 11:04 Oxygen Delivery Method Room Air 01/18/24 11:04 Temperature 98.4 F 01/18/24 11:04 Pulse Rate 102 H 01/18/24 11:04 Respiratory Rate 18 01/18/24 11:04 Blood Pressure 178/98 H 01/18/24 11:04 Pulse Oximetry 97 01/18/24 11:04 Oxygen Delivery Method Room Air 01/18/24 11:04 MDM - Skin/Abscess/Foreign Bdy MDM Narrative Medical decision making narrative: The patient was going to be treated with the local small dose steroid cream as well as antifungal cream but when I called the pharmacy for prescription the patient was already having prescription to be picked up after she was in [place] [facility] yesterday The patient blood sugar was elevated 200 she did not take her metformin today She is to go and start taking the medication that she was prescribed yesterday and another ER The patient is to follow up with primary care physician in next 2-3 days or to return to the emergency department should any of the signs or symptoms worsen or new symptoms develop. The patient agrees with the following Diagnosis and Treatment plan and the patient will be discharged home. Lab Data Labs: Lab Results 01/18/24 Range/Units 11:51 POC Glucose 215 H (74-106) mg/dL Discharge Plan Discharge Stand Alone Forms: Portal Instructions Chief Complaint: Skin/Abscess/Foreign Body Clinical Impression: Candidal skin infection Patient Disposition: Home, Self-Care Time of Disposition Decision: 11:46 Condition: Good Prescriptions / Home Meds: No Action metformin 500 mg tablet 500 mg PO BID lisinopril 40 mg tablet 40 mg PO DAILY atorvastatin 20 mg tablet 20 mg PO DAILY carvedilol 25 mg tablet 25 mg PO BID Print Language: Ukrainian Instructions: Yeast Infection (ED) Referrals: Glroia Omalley [Primary Care Provider] - 1 week
[2024-01-18 11:52] LABS: Glucometer 215 mg/dL (74-106)
== END 2024-01-18 12:00 | disposition home or self-care (01) ==
PROVIDERS: Emergency Provider Emergency Medicine; PCP Family Medicine
DX: B37.2 Candidiasis of skin and nail (principal); Z79.84 Long term (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 hypoglycemic drugs; Z79.899 Other long term (current) drug therapy
CPT/HCPCS: 36415; 99283

== ENCOUNTER 2024-03-04 20:11 | Emergency (ER) | payer MEDICARE, SELFPAY ==
[2024-03-04 20:15] VITALS: BP 171/84; PULSE 96; TEMP 36.7; O2SAT 96; BMI 29.2
--- OUTSIDE RECORDS SUMMARY | 2024-03-04 20:20 | XMS_ITS | CCD ---
Author Organization [facility] Care Team Providers Care Cleat Thrower Name Role Phone PHYSICIAN, DEFAULT Unavailable Unavailable PHYSICIAN, DEFAULT Unavailable Unavailable QUTEISH, VEEDA O Unavailable Unavailable CARMELAJUAN DOLAN Admitting Unavailabl JUAN Davey Attending Unavailabl e Suzie Mota Primary Care Unavailable Juan, Ceceilia Consulting Unavailable Juan, Ceceilia Consulting Unavailable Juan, Ceceilia Consulting Unavailable FARIDA GREENE Consulting Unavailable KUMARALINGAM AMANDA Consulting Unavailabl e BV, Physician - Emergency Consulting Briseida Boateng Consulting Unavailable Drew Soriano Consulting Unavailable JUAN CASEY Attending Unavailabl e Suzie Mota Primary Care Unavailable SUZIE MOTA Consulting Unavailable CARMELAJUAN COOKIE Admitting Unavailabl e JUAN CASEY Attending Unavailabl e Suzie Mota Primary Care Unavailable KOKI MARQUEZ Consulting Unavailable BV, Physician - Emergency Consulting Briseida Boateng Consulting Unavailable Koki Marquez Consulting Unavailable Drew Soriano Consulting Unavailable JUAN CASEY Attending Unavailabl e Suzie Mota Primary Care Unavailable SUZIE MOTA Consulting Unavailable Jeni Antonio Primary Care Provider NON, STAFF, Primary Care Provider Unavailbryson e Krishan Madrid Attending Provider [phone] Unavailable Primary Care Provider Unavailabl e [...] Unavailable GRECHNY ., JUSTIN NIÑO Consulting Unavailbryson e HAY ., DR PERES Admitting Unavailable PENDLETONSUSAN Consulting Unavailable HANNAH SOLER Referring Unavailable RUMSCHLAG, GLORIA Primary Care Unavailable TIMMIS, KAYLA H Attending Unavailable Rumschlag DO, Gloria K Primary Care Provider NARINDER PALOMO Attending Unavailable RUMSCHLAG, GLORIA K Referring Unavailable RUMSCHLAG, GLORIA K Primary Care Unavailable RUMSCHLAG, GLORIA K Referring Unavailable RUMSCHLAG, GLORIA K Primary Care Unavailable BRUCE GODWIN Attending Unavailable OBRYBRUCE RAMOS Referring Unavailable RUMSCHLAG, GLORIA K Primary Care Unavailable RUMSCHLAG, GLORIA K Primary Care Unavailable LINDY VILLATORO Attending Unavailable RUMSCHLAG, GLORIA K Primary Care Unavailable CUMMINGSHERMILO Attending Unavailable RUMSCHLAG, GLORIA K Primary Care Unavailable MUKHERJEE, BRISA L Primary Care Unavailable IRENADELMALYNN Attending Unavailable IRENALYNN Attending Unavailable IRENA, LYNN Referring Unavailable MUKHERJEE, BRISA L Primary Care Unavailable CUMMINGS, HERMILO A Attending Unavailable CUMMINGSHERMILO A Referring Unavailable RUMSCHLAG, GLORIA K Primary Care Unavailable RUMSCHLAG, GLORIA K Primary Care Unavailable OBBRUCE GERMAIN Attending Unavailable JENI CATALAN Attending Unavailable JENI CATALAN Referring Unavailable RUMSCHLAG, GLORIA K Primary Care Unavailable COLUMBA GONZALEZ Attending Unavailable RUMSCHLAG, GLORIA K Referring Unavailable RUMSCHLAG, GLORIA K Primary Care Unavailable Unavailable Unavailable Unavailable Allergies Allergy Classification Reported Allergen(s) Allergy Type Date of Onset Reaction(s) Facility Penicillins (antibiotic) (1 source) Penicillins Drug Allergy 3 Hives, Nausea And Vomiting [facility] (5 sources) Honey; Translations: [Unknown] Drug allergy (disorder) 0 [facility] (6 sources) Penicillins; Translations: [penicillins] Drug allergy (disorder) 9 Hives, Nausea And Vomiting [facility] (6 sources) Honey Propensity to adverse reactions to drug 3 Swelling [place], [place] (1 source) Penicillins Propensity to adverse reactions to drug 3 Hives, Nausea And Vomiting [place] (1 source) Penicillin Drug Allergy Unknown [employer] Other (3 sources) Penicillins Propensity to adverse reactions to drug 7 Hives, Nausea [facility] (5 sources) Perflutren; Translations: [PERFLUTREN LIPID MICROSPHERES] Drug Allergy 1 [facility] Work Phone: Medications Current Medications Medication Drug Class(es) Dates Sig (Normalized) Sig (Original) 8 hr acetaminophen 650 mg extended release oral tablet (6 sources) acetaminophen (T YLENOL ARTHRITIS) 650 mg 8 hr tablet as needed. 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; Translations: [OTH FPC CURRENT DRUG THERAPY] Onset: 3 Episodic Other [...] the digestive system and abdomen] Episodic Other inflammatory condition of skin (1 source) Erythema intertrigo; Translations: [Erythema intertrigo] Onset: 4 Episodic Other lower respiratory disease (1 source) Nodule of lung; Translations: [Solitary pulmonary nodule] 12-08-2023 Episodic Other lower respiratory disease (1 source) Solitary pulmonary nodule; Translations: [Solitary pulmonary nodule] Onset: 4 Episodic Other lower respiratory disease (1 source) Cough Onset: 4 Episodic Other nutritional; endocrine; and [...] unspecified; Translations: [Obesity, unspecified] Onset: 1 Chronic Residual codes; unclassified (5 sources) Obstructive sleep [...] neurogenic claudication] Onset: 2 Resolved: 2 Episodic Unclassified (2 sources) Patient encounter status; Translations: [Encounter for well woman exam with routine gynecological exam] Onset: 3 07-19-2013 Unclassified (1 source) FPC INJECT NONINSULN ANTIDIAB; Translations: [FPC INJECT NONINSULN ANTIDIAB] Onset: 3 Unclassified (1 source) New Patient Onset: 4 Unclassified (1 source) Cough, unspecified; Translations: [Cough, unspecified] Onset: 4 Unclassified (1 source) Rash Onset: 4 Unclassified (1 source) Skin Rash Onset: 4 Unclassified (1 source) Cold Like Symptoms Onset: [...] disorders Onset: 1 06-22-2021 Nonspecific chest pain (8 sources) Chest pain; Translations: [Other chest pain] [...] [Obesity, unspecified] Onset: 3 Resolved: 3 Chronic Other upper respiratory disease (1 source) Nasal congestion; Translations: [Nasal congestion] Onset: 3 Episodic Residual codes; unclassified (1 source) History of [...] of digestive tract] Onset: 0 04-04-2020 Episodic Superficial injury; contusion (4 sources) Contusion of right front wall of thorax, initial encounter; Translations: [Contusion of right back wall of thorax, initial encounter] Onset: 12-24-202 3 Episodic Urinary tract infections (3 sources) Recurrent urinary tract infection; Translations: [Urinary tract infection, site not specified] Onset: 3 08-05-2023 Episodic Results Test Name Value Interpretation Reference Range Facility SARS/FLU A+B/RSV by NAAT/Mol [facility] 03-02-2024 SARS/FLU A+B/RSV by NAAT/Molecular FLU A PCR [...] operators who are performing tests using either [employer] or [employer] systems and is limited to laboratories that [...] repeat. Fact Sheet for Healthcare Providers: https://www.fda.go v/media/702360/maci nload Fact Sheet for Patients: https://www.fda.go v/media/478707/maci nload Normal [facility] Comment on above: Performed By: #### C OVFLR #### [facility] ([id number]) [address] [facility] [place]NOTE [address]], [place] [address] XR CHEST 2 VWSon 03-02-2024 XR CHEST 2 VWS XR CHEST 2 VWS Clinical history: Cough. Comparisons: 09/08/2023 through 09/24/2023. Findings: 2 views of the chest obtained. Heart size and pulmonary vasculature appear within normal limits. There is hypoventilation with bibasilar subsegmental atelectasis. No focal pulmonary parenchymal consolidation. No large pleural effusion nor pneumothorax. IMPRESSION: Hypoventilation with low lung volumes and bibasilar subsegmental atelectasis. These findings are nonspecific. Exam is otherwise unremarkable. Clinical correlation and follow-up recommended. 11 Finalized by Columba Bradford MD on 03/02/2024 12:57 AM Normal [facility] XR RIBS RT 3 VWS W PA [...] Alvarenga MD on 10/26/2023 11:55 AM Normal [facility] XR SPINE LUMBAR 2 OR 3 [...] Mosley MD on 10/26/2023 11:56 AM Normal [facility] XR SPINE THORACIC 2 VWSon XR [...] Borjas MD on 10/26/2023 12:00 PM Normal [facility] XR FACIAL BONES MIN 3 VWSon [...] Mosley MD on 09/28/2023 8:37 AM Normal [facility] BASIC METABOLIC PANLon 09-24 Anion gap [Moles/Vol] 9 mmol/L Normal 5-15 [facility] Comment on above: Performed By: #### B CHEYENNE PHILLIPS, 93449-8 #### [facility] ([id number]) [address] [place] [address] 93326 Calcium [Mass/Vol] 9.3 mg/dL Normal 8.5-10.[address] [facility] Comment on above: Performed By: #### B CHEYENNE PHILLIPS, 13911-6 #### [facility] ([id number]) [address] [place] [address] 90411 Chloride [Moles/Vol] 102 mmol/L Normal 98-[address] [facility] Comment on above: Performed By: #### B CHEYENNE PHILLIPS, 60759-8 #### [facility] ([id number]) [address] [place] [address] 62714 CO2 [Moles/Vol] 26 mmol/L Normal 22-32 [facility] Comment on above: Performed By: #### B CHEYENNE PHILLIPS, 11655-9 #### [facility] ([id number]) [address] [place] [address] 02516 Creatinine [Mass/Vol] 0.64 mg/dL Normal 0.40-1.00 [facility] Comment on above: Result Comment: METH OD TRACEABLE TO IDMS STANDARD Performed By: #### B CHEYENNE PHILLIPS, 15409-5 #### [facility] ([id number]) [address] [place] [address] 40683 eGFR (CKD-EPI) NON-RACE DEPENDENT >90 Normal >59 [facility] Comment on above: Result Comment: Reported eGFR is based on the CKD-EPI 2020 equation that does not use a race coefficient. Performed By: #### B CHEYENNE PHILLIPS, 29563-6 #### [facility] ([id number]) [address] [place] [address] 39493 Glucose [Mass/Vol] 202 mg/dL High 65-[address] [facility] Comment on above: Performed By: #### B ALAN, CBCA, 14273-7 #### [facility] ([id number]) [address] [place] [address] 58718 Potassium [Moles/Vol] 3.8 mmol/L Normal 3.5-5.0 [facility] Comment on above: Performed By: #### B ALAN, CBCA, 42778-8 #### [facility] ([id number]) [address] [place] [address] 56716 Sodium [Moles/Vol] 137 mmol/L Normal 134-[address] [facility] Comment on above: Performed By: #### B ALAN, CBCA, 69199-7 #### [facility] ([id number]) [address] [place] [address] 36022 Urea nitrogen [Mass/Vol] 13 mg/dL Normal 5-27 [facility] Comment on above: Performed By: #### B ALAN, CBCA, 11023-4 #### [facility] ([id number]) [address] [place] [address] 11440 CBC AND AUTO DIFFon 12-20-20 23 ABSOLUTE BASOPHIL 0.1 X10E9/L Normal 0.0-0.[address] [facility] Comment on above: Performed By: #### B ALAN, CBCA, 55999-9 #### [facility] ([id number]) [address] [place] [address] 61986 ABSOLUTE NEUTROPHIL 3.7 X10E9/L Normal 1.5-6.[address] [facility] Comment on above: Performed By: #### B ALAN, CBCA, 25363-2 #### [facility] ([id number]) [address] [place] [address], [place] [address] Basophils/100 WBC (Bld) 1.2 % Normal [facility] Comment on above: Performed By: #### B MP, CBCA, 46165-9 #### [facility] ([id number]) [address] [place] [address] 44028 Eosinophils (Bld) [#/Vol] 0.4 10*3/uL Normal 0.0-0.4 [facility] Comment on above: Performed By: #### B ALAN, CBCA, 84904-5 #### [facility] ([id number]) [address] [place] [address] 89096 Eosinophils/100 WBC (Bld) 6.7 % Normal [facility] Comment on above: Performed By: #### B ALAN, CBCA, 06537-2 #### [facility] ([id number]) [address] [place] [address] 40704 Erythrocyte distribution wid th (RBC) [Ratio] 13.7 % Normal 11.5-15.0 [facility] Comment on above: Performed By: #### B ALAN, CBCA, 92976-5 #### [facility] ([id number]) [address] [place] [address] 58189 Hematocrit (Bld) [Volume fraction] 39.1 % Normal 35-47 [facility] Comment on above: Performed By: #### B ALAN, CBCA, 46892-8 #### [facility] ([id number]) [address] [place] [address] 89477 Hemoglobin (Bld) [Mass/Vol] 12.9 g/dL Normal 11.7-15. 5 [facility] Comment on above: Performed By: #### B ALAN, CBCA, 54202-7 #### [facility] ([id number]) [address] [place] [address] 79270 Lymphocytes (Bld) [#/Vol] 1.4 10*3/uL Normal 1.0-3.5 [facility] Comment on above: Performed By: #### B ALAN CBCA, 91293-9 #### [facility] ([id number]) [address] [place] [address] 44046 Lymphocytes/100 WBC (Bld) 22.9 % Normal [facility] Comment on above: Performed By: #### B ALAN, CBCA, 64999-5 #### [facility] ([id number]) [address] [place] [address] 10095 MCH (RBC) [Entitic mass] 28.4 pg Normal 27-34 [facility] Comment on above: Performed By: #### B ALAN, CBCA, 38704-3 #### [facility] ([id number]) [address] [place] [address] 22730 MCHC (RBC) [Mass/Vol] 33.0 g/dL Normal 32-36 [facility] Comment on above: Performed By: #### B ALAN CBCA, 94178-4 #### [facility] ([id number]) [address] [place] [address] 09085 MCV (RBC) [Entitic vol] 86 fL Normal 80-100 [facility] Comment on above: Performed By: #### B ALAN CBCA, 88880-3 #### [facility] ([id number]) [address] [place] [address] 50485 Monocytes (Bld) [#/Vol] 0.6 10*3/uL Normal 0-0.9 [facility] Comment on above: Performed By: #### B ALAN, CBCA, 00867-1 #### [facility] ([id number]) [address] [place] [address] 57881 Monocytes/100 WBC (Bld) 9.8 % Normal [facility] Comment on above: Performed By: #### B MP, CBCA, 70005-3 #### [facility] ([id number]) [address] [place] [address] 09323 Neutrophils/100 WBC (Bld) 59.4 % Normal [facility] Comment on above: Performed By: #### B MP, CBCA, 85083-7 #### [facility] ([id number]) [address] [place] [address] 00737 Platelet mean volume (Bld) [Entitic vol] 8.4 fL Normal 7-12 [facility] Comment on above: Performed By: #### B MP, CBCA, 20123-0 #### [facility] ([id number]) [address] [place] [address] 00895 Platelets (Bld) [#/Vol] 219 10*3/uL Normal 150-450 [facility] Comment on above: Performed By: #### B MP, CBCA, 28406-6 #### [facility] ([id number]) [address] [place] [address] 65604 RBC COUNT 4.53 X10E12/L Normal 3.80-5.20 [facility] Comment on above: Performed By: #### B ALAN, CBCA, 62282-8 #### [facility] ([id number]) [address] [place] [address] 01238 WBC (Bld) [#/Vol] 6.2 10*3/uL Normal 4.0-11.[address] [facility] Comment on above: Performed By: #### B MP, CBCA, 77921-6 #### [facility] ([id number]) [address] [place] [address] 71357 [facility] SARS/FLU A+B/RSV by NAAT/Molecular FLU A [...] operators who are performing tests using either [employer] or [employer] systems and is limited to laboratories that [...] repeat. Fact Sheet for Healthcare Providers: https://www.fda.go v/media/572533/maci nload Fact Sheet for Patients: https://www.fda.go v/media/977585/maci nload Normal [facility] Comment on above: Performed By: #### C OVFLR #### [facility] ([id number]) [address] [place] [address], [place] [address] TROPONIN Ion 09-24-2023 Troponin I.cardiac [Mass/Vol] ng/mL Normal 0.00-0 .04 [facility] Comment on above: Performed By: #### B MP, CBCA, 91143-4 #### [facility] ([id number]) [address] [facility] [place]NOTE [address]], [place] [address] XR CHEST 2 VWSon 09-24-2023 XR CHEST [...] Thomas Shrestha on 09/24/2023 9:20 AM Normal [facility] Cult,Urineon 05-16-2023 Cult,Urine Specimen Description .CLEAN CATCH URINE Culture NO SIGNIFICANT GROWTH Report Status FINAL 05/16/2023 Normal [facility] Comment on above: Performed By: #### U RC #### [address] [place] [address] Laboratory Equipment Cleaner: Dallas Burton MD [facility] [address] [place] [address] [place] [address] Laboratory Equipment Cleaner: Lindy Odonnell MD Urinalysis w/ Microon 2022 Bilirubin, SemiQt,Ur Negative Normal NEG [facility] Comment on above: Performed By: #### U AMIC #### [facility] [address] [place] [address] Laboratory Equipment Cleaner: Lindy Odonnell MD Blood, Urine Negative Normal NEG [facility] Comment on above: Performed By: #### U AMIC #### [facility] [address] [place] [address] Laboratory Equipment Cleaner: Lindy Odonnell MD Clarity (U) Clear Normal CLEAR [facility] Comment on above: Performed By: #### U AMIC #### [facility] [address] [place], [place] [address] Laboratory Equipment Cleaner: Lindy Odonnell MD Color (U) Yellow Normal YEL [facility] Comment on above: Performed By: #### U AMIC #### [facility] [address] [place], [place] [address] Laboratory Equipment Cleaner: Lindy Odonnell MD Epithelial cells LM Ql (Urin e sed) 2 TO 5 Normal 0-25 [facility] Comment on above: Performed By: #### U AMIC #### [facility] [address] [place], [place] [address] Laboratory Equipment Cleaner: Lindy Odonnell MD Glucose Ql (U) Negative Normal NEG [facility] Comment on above: Performed By: #### U AMIC #### [facility] [address] [place], [place] [address] Laboratory Equipment Cleaner: Lindy Odonnell MD Ketones Ql (U) Negative Normal NEG [facility] Comment on above: Performed By: #### U AMIC #### [facility] [address] [place], [place] [address] Laboratory Equipment Cleaner: Lindy Odonnell MD Leukocyte esterase Test stri p Ql (U) Negative Normal NEG [facility] Comment on above: Performed By: #### U AMIC #### [facility] [address] [place], [place] [address] Laboratory Equipment Cleaner: Lindy Odonnell MD Nitrite,Ur Negative Normal NEG [facility] Comment on above: Performed By: #### U AMIC #### [facility] [address] [place] [address] Laboratory Equipment Cleaner: Lindy Odonnell MD PH,Ur 5.5 Normal 5.0-9.0 [facility] Comment on above: Performed By: #### U AMIC #### [facility] [address] [place], [place] 3[address] Laboratory Equipment Cleaner: Lindy Odonnell MD Protein Ql (U) Negative Normal NEG [facility] Comment on above: Performed By: #### U AMIC #### [facility] [address] [place], [place] [address] Laboratory Equipment Cleaner: Lindy Odonnell MD Spec. Derry,Ur 1.025 High 1.010-1.02 0 [facility] Comment on above: Performed By: #### U AMIC #### [facility] [address] [place], [place] [address] Laboratory Equipment Cleaner: Lindy Odonnell MD Urine RBC's 0 TO 2 Normal 0-2 [facility] Comment on above: Performed By: #### U AMIC #### [facility] [address] [place] [address] Laboratory Equipment Cleaner: Lindy Odonnell MD Urine WBC's 0 TO 2 Normal 0-5 [facility] Comment on above: Performed By: #### U AMIC #### [facility] [address] [place] [address] [place], [place] 3769[address] Laboratory Equipment Cleaner: Lindy Odonnell MD Urobilinogen,Ur Normal Normal 0.0-1.0 [facility] Comment on above: Performed By: #### U AMIC #### [facility] [address] [place], [facility] Laboratory Equipment Cleaner: Lindy Odonnell MD CBC AUTO DIFFon 01-05-2023 BASO # 0.0 103/ul Normal 0.0-0.1 [facility] Comment on above: Performed By: #### C BC #### [facility] [address] [place], [place] [address] Dr. Traci Cerna Basophils/100 WBC (Bld) 0.7 % Normal 0.2-2.0 [facility] Comment on above: Performed By: #### C BC #### [facility] [address] [place] [address] Dr. Traci Cerna EO # 0.2 103/ul Normal 0.0-0.7 [facility] Comment on above: Performed By: #### C BC #### [facility] [address] [place] [address] Dr. Traci Cerna Eosinophils/100 WBC (Bld) 3.5 % Normal 0.9-7.0 [facility] Comment on above: Performed By: #### C BC #### [facility] [address] [place] [address] Dr. Traci Cerna Erythrocyte distribution wid th (RBC) [Ratio] 13.6 % Normal 11.0-15.0 [facility] Comment on above: Performed By: #### C BC #### [facility] [address] [place] [address] Dr. Traci Cerna Hematocrit (Bld) [Volume fraction] 38.9 % Normal 36.0-48.0 [facility] Comment on above: Performed By: #### C BC #### [facility] [address] [place] [address] Dr. Traci Cerna Hemoglobin (Bld) [Mass/Vol] 12.8 g/dL Normal 12.0-16. 0 [facility] Comment on above: Performed By: #### C BC #### [facility] [address] [place] [address] Dr. Traci Cerna IG # 0.01 10e3/ul Normal 0.00-0.03 [facility] Comment on above: Performed By: #### C BC #### [facility] [address] [place] [address] Dr. Traci Cerna IG % 0.2 % Normal 0.0-0.5 [facility] Comment on above: Performed By: #### C BC #### [facility] [address] [place] [address] Dr. Traci Cerna LYMPH # 2.0 103/ul Normal 1.2-3.8 [facility] Comment on above: Performed By: #### C BC #### [facility] [address] [place] [address] Dr. Traci Cerna Lymphocytes/100 WBC (Bld) 37.8 % Normal 20.5-60.0 [facility] Comment on above: Performed By: #### C BC #### [facility] [address] [place] [address] Dr. Traci Cerna MANUAL DIFF REQ NO Normal [facility] Comment on above: Performed By: #### C BC #### [facility] [address] [place] [address] Dr. Traci Cerna MCH (RBC) [Entitic mass] 28.6 pg Normal 26.7-34.0 [facility] Comment on above: Performed By: #### C BC #### [facility] [address] [place] [address] Dr. Traci Cerna MCHC (RBC) [Mass/Vol] 32.9 g/dL Normal 29.9-35.2 [facility] Comment on above: Performed By: #### C BC #### [facility] [address] [place] [address] Dr. Traci Cerna MCV (RBC) [Entitic vol] 86.8 fL Normal 81.0-99.0 [facility] Comment on above: Performed By: #### C BC #### [facility] [address] [place] [address] Dr. Traci Cerna MONO # 0.6 103/ul Normal 0.3-0.8 [facility] Comment on above: Performed By: #### C BC #### [facility] [address] [place] [address] Dr. Traci Cerna Monocytes/100 WBC (Bld) 10.8 % Normal 1.7-12.0 [facility] Comment on above: Performed By: #### C BC #### [facility] [address] [place] [address] Dr. Traci Cerna NEUT # 2.5 103/ul Normal 1.4-6.5 [facility] Comment on above: Performed By: #### C BC #### [facility] [address] [place] [address] Dr. Traci Cerna Neutrophils/100 WBC (Bld) 47.0 % Normal 43.0-75.0 [facility] Comment on above: Performed By: #### C BC #### [facility] [address] [place] [address] Dr. Traci Cerna Platelet mean volume (Bld) [Entitic vol] 9.9 fL Normal 9.5-13.5 [facility] Comment on above: Performed By: #### C BC #### [facility] [address] [address] [address] Traci Cerna PLT 218 103/ul Normal 150-450 [facility] Comment on above: Performed By: #### C BC #### [facility] [address] [place] [address] Dr. Traci Cerna RBC 4.48 106/ul Normal 4.20-5.40 [facility] Comment on above: Performed By: #### C BC #### [facility] [address] [place] [address] Dr. Traci Cerna WBC 5.4 103/ul Normal 4.0-11.0 [facility] Comment on above: Performed By: #### C BC #### [facility] [address] [place] [address] NECK ST WO [...] SUSAN PENDLETON Date: 2023-01-05 20:31 Normal [facility] PROF CHEM 8 (BAS METB)on Anion gap [Moles/Vol] 12.3 mmol/L Normal [facility] Comment on above: Performed By: #### T SH, BMP #### [facility] [address] [place] [address] Dr. Traci Cerna Calcium [Mass/Vol] 9.4 mg/dL Normal 8.5-10.1 [facility] Comment on above: Performed By: #### T SH, BMP #### [facility] [address] [place] [address] Dr. Traci Cerna Chloride [Moles/Vol] 105 mmol/L Normal 98-107 [facility] Comment on above: Performed By: #### T SH, BMP #### [facility] [address] [place] [address] Dr. Traci Cerna CO2 [Moles/Vol] 29.0 mmol/L Normal 21.0-32.0 [facility] Comment on above: Performed By: #### T SH, BMP #### [facility] [address] [place] [address] Dr. Traci Cerna Creatinine [Mass/Vol] 0.78 mg/dL Normal 0.55-1.02 [facility] Comment on above: Performed By: #### T SH, BMP #### [facility] [address] [place] [address] Dr. Traci Cerna EGFR-AF QATARI >60 Normal >=60 [facility] Comment on above: Performed By: #### T SH, BMP #### [facility] [address] [place] [address] Dr. Traci Cerna EGFR-NON AF QATARI >60 Normal >=60 [facility] Comment on above: Performed By: #### T SH, BMP #### [facility] [address] [place] [address] Dr. Traci Cerna Glucose [Mass/Vol] 178 mg/dL Critically high 74-106 [facility] Comment on above: Performed By: #### T SH, BMP #### [facility] [address] [address] [address] Traci Cerna Potassium [Moles/Vol] 4.3 mmol/L Normal 3.5-5.1 [facility] Comment on above: Performed By: #### T SH, BMP #### [facility] [address] [address] [address] Traci Cerna Sodium [Moles/Vol] 142 mmol/L Normal 136-145 [facility] Comment on above: Performed By: #### T SH, BMP #### [facility] [address] [address] [address] Traci Cerna Urea nitrogen [Mass/Vol] 21.0 mg/dL Critically high 7.0-[address] [facility] Comment on above: Performed By: #### T SH, BMP #### [facility] [address] [place] [address] Dr. Traci Cerna Urea nitrogen/Creatinine [Ma ss ratio] 26.9 mg/mg Normal [facility] Comment on above: Performed By: #### T SH, BMP #### [facility] [address] [place] [address] Dr. Traci Cerna TSHon 01-05-2023 TSH 0.650 uIU/mL Normal 0.358-3.[address] [facility] Comment on above: Performed By: #### T SH, BMP #### [facility] [address] [place] [address] Dr. Traci Cerna US Thyroidon 12-30-2022 US Thyroid CLINICAL HISTORY: Enlarged thyroid on physical exam. COMPARISON: None available. TECHNIQUE: Ultrasound of the thyroid was performed with a regional survey. Reference: ACR Thyroid, Imaging Recording and Data System (TI-RADS): White paper of the ACR TI-RADS committee. Journal of the [employer]: Volume 14, issue 5, [...] by Mac Dai on 01/01/2023 0924 Normal [facility] Specialist Colonoscopy studyOrdered By: Jairo Fisher on 04-03-2021 No dictation Tripda Phone: Tripda Phone: EsophagogastroduodenoscopyOr dered By: Jairo Fisher on 04-03-2021 No dictation Tripda Phone: Tripda Phone: .UA Microscp Aon 07-15-2019 UA Mucus Present Abnormal Absent [facility] Comment on above: Performed By: #### E GFR #### [facility] [address] [place] [address] UA RBC Quant 0 /HPF Normal 0-5 [facility] Comment on above: Performed By: #### E GFR #### [facility] [address] [place] [address] UA Squepi Cells Quant 1 /HPF Normal 0-29 [facility] Comment on above: Performed By: #### E GFR #### [facility] [address] [place] [address] UA WBC Quant 1 /HPF Normal 0-5 [facility] Comment on above: Performed By: #### E GFR #### [facility] [address] [place] [address] Consultation Note - Alondra n 07-15-2019 Consultation Note - Generic Chief [...] Koki Marquez DO 07/15/19 01:10 EDT Normal [facility] Inpatient Clinical Summaryon 07-15-2019 Inpatient Clinical Summary [facility] [address] [place] [address] [place] [address] Clinical Summary Person Information Name: Mari Jamison Age: 69 Years : 1950 Sex: Female PCP: Marital Status: PCP: Race: White Ethnicity: Not or Language: Cymraes Visit Id: Visit Reason: Speciality: Acuity: Enc Type: Inpatient Med Service: Surgery Arrival: 07/14/2019 05:57:15 Discharge: Dispo Type: Address: [address] [place] [address] Diagnosis: History of total left hip replacement; [...] tolerable. Discharge Patient Education Review and attach [facility] Hip/Knee Inpatient Discharge Special Instructions Bruising may [...] STAY New Medications Printed Prescriptions hydrocodone-acetam inophen ([place] 5 mg-325 mg oral tablet) 1 Tabs [...] PATIENT?S CURRENT MEDICATIONS Printed Prescriptions hydrocodone-acetam inophen ([place] 5 mg-325 mg oral tablet) 1 Tabs [...] Address: When: Carmela ARORA, Juan Jimenes [address] [place] [phone] Normal [facility] POC Glucose Randomon 019 Glucose [Mass/Vol] 278 mg/dL High 78-110 [facility] Comment on above: Performed By: #### E GFR #### [address] [address] Glucose [Mass/Vol] 189 mg/dL High 78-110 [facility] Comment on above: Performed By: #### C OMP #### [address] [address] Glucose [Mass/Vol] 181 mg/dL High 78-110 [facility] Comment on above: Performed By: #### C OMP #### [address] [address] Glucose [Mass/Vol] 236 mg/dL High 78-110 [facility] Comment on above: Performed By: #### C OMP #### [address] [address] Glucose [Mass/Vol] 233 mg/dL High 78-110 [facility] Comment on above: Performed By: #### C OMP #### [address] [address] Glucose [Mass/Vol] 283 mg/dL High 78-110 [facility] Comment on above: Performed By: #### C OMP #### [address] [address] UA w Culture if Indon 2018 Color (U) Yellow Normal [facility] Comment on above: Performed By: #### E GFR #### [address] [address] Glucose (U) [Mass/Vol] 150 mg/dL Abnormal Negative Bl [facility] Comment on above: Performed By: #### E GFR #### [address] [address] Ketones Ql (U) Negative Normal Negative [facility] Comment on above: Performed By: #### E GFR #### [address] [address] UA Blood Negative Normal Negative [facility] Comment on above: Performed By: #### E GFR #### [address] [address] UA Clarity Clear Normal [facility] Comment on above: Performed By: #### E GFR #### [address] [address] UA Leukocyte Esterase Negative Normal Negative [facility] Comment on above: Performed By: #### E GFR #### [address] [address] UA Nitrite Negative Normal Negative [facility] Comment on above: Performed By: #### E GFR #### [address] [address] UA pH 6.0 Normal 4.5 - 7.8 [facility] Comment on above: Performed By: #### E GFR #### [address] [address] UA Protein Negative Normal Negative [facility] Comment on above: Performed By: #### E GFR #### [address] [address] UA Source Clean Catch Normal [facility] Comment on above: Performed By: #### E GFR #### [address] [address] UA Spec Grav 1.010 Normal 1.003-1.03 5 [facility] Comment on above: Performed By: #### E GFR #### [address] [address] UA Urobilinogen 0.2 mg/dL Normal 0.2 - 1.0 [facility] Comment on above: Performed By: #### E GFR #### [address] [address] Urobilinogen Qn (U) Negative Normal Negative [facility] Comment on above: Performed By: #### E GFR #### [address] [address] .eGFRon 07-14-2019 eGFR Non-AA >60 Normal >=60 [facility] Comment on above: Result Comment: Resu lt [...] dosing. Performed By: #### C OMP #### [place] [address] eGFR AA >60 Normal >=60 [facility] Comment on above: Result Comment: Resu lt = 0-14.9 mL/min/1.73 m2 Kidney failure or Dialysis Result = 15-29 mL/min/1.73 m2 Severe decrease in GFR Result = 30-59 mL/min/1.73 m2 Moderate decrease in GFR Result >= 60 mL/min/1.73 m2 Normal or increased GFR Performed By: #### C OMP #### [address] [address] Basic Metabolic Profileon Anion gap [Moles/Vol] 14 mmol/L Normal 7-17 [facility] Comment on above: Performed By: #### C [id number] #### [address] [address] Calcium [Mass/Vol] 8.9 mg/dL Normal 8.5-10.3 [facility] Comment on above: Performed By: #### C [id number] #### [address] [address] Chloride [Moles/Vol] 104 mmol/L Normal 98-110 [facility] Comment on above: Performed By: #### C [id number] #### [address] [address] CO2 [Moles/Vol] 25 mmol/L Normal 22-32 [facility] Comment on above: Performed By: #### C [id number] #### [address] [address] Creatinine [Mass/Vol] 0.75 mg/dL Normal 0.44-1.03 [facility] Comment on above: Performed By: #### C [id number] #### [address] [address] Glucose [Mass/Vol] 206 mg/dL High 74-118 [facility] Comment on above: Performed By: #### C [id number] #### [address] [address] Potassium [Moles/Vol] 3.8 mmol/L Normal 3.4-4.8 [facility] Comment on above: Performed By: #### C [id number] #### [address] [address] Sodium [Moles/Vol] 139 mmol/L Normal 133-142 [facility] Comment on above: Performed By: #### C D:[id number] #### [address] [address] Urea nitrogen [Mass/Vol] 20 mg/dL Normal 8-26 [facility] Comment on above: Performed By: #### C [id number] #### [address] [address] Urea nitrogen/Creatinine [Ma ss ratio] 26.7 mg/mg High 10.0-20.0 [facility] Comment on above: Performed By: #### C D:[id number] #### [address] [place] [address] Hgb & Hcton 07-14-2019 Hematocrit (Bld) [Volume fraction] 33.0 % Low 36.0-46.0 [facility] Comment on above: Performed By: #### C D:[id number] #### [address] [address] Hemoglobin (Bld) [Mass/Vol] 10.9 g/dL Low 12.0-16. 0 [facility] Comment on above: Performed By: #### C D:[id number] #### [address] [address] Operative Reporton 9 Operative Report Indication for Surgery Degenerative arthritis left hip Preoperative Diagnosis Degenerative arthritis left hip Postoperative Diagnosis Same Operation Left total hip replacement Parveen 54 mm Continuum cup Fit more B4 femoral stem Versus 36 mm head +0 neck 2 acetabular screws 36 mm inner diameter elevated liner Surgeon(s) Dr. Juan Casey Lap Layer [facility] Anesthesia General Estimated Blood Loss 550 [...] layer was then closed with #1 Ethibond [id number] sutures. The second half of the vancomycin [...] Juan Casey MD 07/14/19 10:28 EDT Normal [facility] POC Glucose Randomon 019 Glucose [Mass/Vol] 215 mg/dL High 78-110 [facility] Comment on above: Performed By: #### E GFR #### [address] [address] Glucose [Mass/Vol] 119 mg/dL High 78-110 [facility] Comment on above: Performed By: #### C D:[id number] #### [address] [address] Glucose [Mass/Vol] 136 mg/dL High 78-110 [facility] Comment on above: Performed By: #### C D:[id number] #### [address] [address] Glucose [Mass/Vol] 204 mg/dL High 78-110 [facility] Comment on above: Performed By: #### C D:[id number] #### [address] [address] Glucose [Mass/Vol] 267 mg/dL High 78-110 [facility] Comment on above: Performed By: #### C D:[id number] #### [address] [address] Glucose [Mass/Vol] 164 mg/dL High 78-110 [facility] Comment on above: Performed By: #### C D:[id number] #### [address] [address] XR Hip Operative 1 View Left on [...] Electronically Signed in Other Vendor System) Normal [facility] ABO/Rhon 07-02-2019 ABO/Rh SD 07/14/2019 DCon: 0 ABO/Rh: O NEG Normal [facility] Comment on above: Performed By: #### C D:[id number] #### [address] [address] ABSC Autoon 07-02-2019 ABSC Auto Negative Normal [facility] Comment on above: Performed By: #### C D:[id number] #### [address] [address] CBC w/ Diffon 07-02-2019 Erythrocyte distribution wid th (RBC) [Ratio] 14.1 % Normal 11.6-14.8 [facility] Comment on above: Performed By: #### C D:[id number] #### [address] [address] Hematocrit (Bld) [Volume fraction] 39.9 % Normal 36.0-46.0 [facility] Comment on above: Performed By: #### C D:[id number] #### [address] [address] Hemoglobin (Bld) [Mass/Vol] 13.5 g/dL Normal 12.0-16. 0 [facility] Comment on above: Performed By: #### C D:[id number] #### [address] [address] MCH (RBC) [Entitic mass] 28.9 pg Normal 27.0-35.0 [facility] Comment on above: Performed By: #### C D:[id number] #### [address] [address] MCHC (RBC) [Mass/Vol] 33.8 % Normal 31.0-37.0 [facility] Comment on above: Performed By: #### C D:[id number] #### [address] [address] MCV (RBC) [Entitic vol] 85.6 fL Normal 80.0-100.0 [facility] Comment on above: Performed By: #### C D:[id number] #### [address] [address] Platelet mean volume (Bld) [Entitic vol] 8.3 fL Normal 6.7-10.6 [facility] Comment on above: Performed By: #### C D:[id number] #### [address] [address] Platelets (Bld) [#/Vol] 214 x10*3/mcL Normal 150-350 [facility] Comment on above: Performed By: #### C D:[id number] #### [address] [address] RBC (Bld) [#/Vol] 4.67 x10*6/mcL Normal 3.80-5.20 [facility] Comment on above: Performed By: #### C D:[id number] #### [address] [address] WBC (Bld) [#/Vol] 5.2 x10*3/mcL Normal 4.5-11.0 [facility] Comment on above: Performed By: #### C D:[id number] #### [address] [address] Diff Autoon 07-02-2019 Baso Absolute 0.0 x10*3/mcL Normal 0.0-0.2 [facility] Comment on above: Performed By: #### C D:[id number] #### [address] [address] Basophils/100 WBC (Bld) 0.5 % Normal 0.0-1.5 [facility] Comment on above: Performed By: #### C D:[id number] #### [address] [address] Eos Absolute 0.1 x10*3/mcL Normal 0.0-0.4 [facility] Comment on above: Performed By: #### C D:[id number] #### [address] [address] Eosinophils/100 WBC (Bld) 2.0 % Normal 0.0-5.4 [facility] Comment on above: Performed By: #### C D:[id number] #### [address] [address] Lymphocytes (Bld) [#/Vol] 1.6 x10*3/mcL Normal 1.0-4.8 [facility] Comment on above: Performed By: #### C D:[id number] #### [address] [address] Lymphocytes/100 WBC (Bld) 30.9 % Normal 27.2-40.8 [facility] Comment on above: Performed By: #### C D:[id number] #### [address] [address] [place] Absolute 0.6 x10*3/mcL Normal 0.1-1.1 [facility] Comment on above: Performed By: #### C D:[id number] #### [address] [address] Monocytes/100 WBC (Bld) 11.8 % Normal 3.7-11.9 [facility] Comment on above: Performed By: #### C D:[id number] #### [address] [address] Neutro Absolute 2.8 x10*3/mcL Normal 1.8-7.7 [facility] Comment on above: Performed By: #### C D:[id number] #### [address] [address] Neutro Auto 54.8 % Normal 47.2-70.8 [facility] Comment on above: Performed By: #### C D:[id number] #### [address] [address] .eGFRon 12-31-2018 eGFR Non-AA >60 Normal >=60 [facility] Comment on above: Result Comment: Resu lt [...] for medication dosing. Performed By: #### C D:[id number] #### [address] [address] eGFR AA >60 Normal >=60 [facility] Comment on above: Result Comment: Resu lt = 0-14.9 mL/min/1.73 m2 Kidney failure or Dialysis Result = 15-29 mL/min/1.73 m2 Severe decrease in GFR Result = 30-59 mL/min/1.73 m2 Moderate decrease in GFR Result >= 60 mL/min/1.73 m2 Normal or increased GFR Performed By: #### C D:[id number] #### [address] [address] Basic Metabolic Profileon Anion gap [Moles/Vol] 12 mmol/L Normal 7-17 [facility] Comment on above: Performed By: #### C BC #### [address] [address] Calcium [Mass/Vol] 8.9 mg/dL Normal 8.5-10.3 [facility] Comment on above: Performed By: #### C BC #### [address] [address] Chloride [Moles/Vol] 107 mmol/L Normal 98-110 [facility] Comment on above: Performed By: #### C BC #### [address] [address] CO2 [Moles/Vol] 21 mmol/L Low 22-32 [facility] Comment on above: Performed By: #### C BC #### [address] [address] Creatinine [Mass/Vol] 0.74 mg/dL Normal 0.44-1.03 [facility] Comment on above: Performed By: #### C BC #### [address] [address] Glucose [Mass/Vol] 243 mg/dL High 74-118 [facility] Comment on above: Performed By: #### C BC #### [address] [address] Potassium [Moles/Vol] 4.0 mmol/L Normal 3.4-4.8 [facility] Comment on above: Performed By: #### C BC #### [address] [address] Sodium [Moles/Vol] 136 mmol/L Normal 133-142 [facility] Comment on above: Performed By: #### C BC #### [address] [address] Urea nitrogen [Mass/Vol] 21 mg/dL Normal 8-26 [facility] Comment on above: Performed By: #### C BC #### [address] [address] Urea nitrogen/Creatinine [Ma ss ratio] 28.4 mg/mg High 10.0-20.0 [facility] Comment on above: Performed By: #### C BC #### [address] [address] Hgb & Hcton 12-31-2018 Hematocrit (Bld) [Volume fraction] 32.0 % Low 36.0-46.0 [facility] Comment on above: Performed By: #### C BC #### [address] [place] [address] Hemoglobin (Bld) [Mass/Vol] 10.7 g/dL Low 12.0-16. 0 [facility] Comment on above: Performed By: #### C BC #### [facility] [address] [place] [address] Inpatient Clinical Summaryon 12-31-2018 Inpatient Clinical Summary [address] [address] [address] Clinical Summary Person Information Name: Mari Jamison Age: 68 Years : 1950 Sex: Female PCP: Suzie Mota CNP Marital Status: PCP: [phone] Race: White Ethnicity: Not or Language: Cymraes Visit Id: Visit Reason: Speciality: Acuity: Enc Type: Observation Med Service: Surgery Arrival: 12/30/2018 06:28:09 Discharge: Dispo Type: Address: [address] [place] [id number] Diagnosis: 1:S/P total knee replacement; 2:Arthritis of [...] ORTHO Eleazar Hip/Knee Inpatient Discharge Special Instructions If your [...] Have Not Changed Printed Prescriptions hydrocodone-acetam inophen ([place] 5 mg-325 mg oral tablet) 1 Tabs [...] PATIENT?S CURRENT MEDICATIONS Printed Prescriptions hydrocodone-acetam inophen ([place] 5 mg-325 mg oral tablet) 1 Tabs [...] Follow up: With: Address: When: Juan Casey [address] [place] [phone] Business (1) Within 1 to 2 weeks Comments: 2 weeks With: Address: When: Suzie Mota [address] [place] [phone] Business (1) Normal [facility] POC Glucose Randomon 019 Glucose [Mass/Vol] 270 mg/dL High 78-110 [facility] Comment on above: Performed By: #### C [id number] #### [address] [address] Glucose [Mass/Vol] 149 mg/dL High 78-110 [facility] Comment on above: Performed By: #### C D:[id number] #### [address] [address] Glucose [Mass/Vol] 174 mg/dL High 78-110 [facility] Comment on above: Performed By: #### C D:[id number] #### [address] [address] Glucose [Mass/Vol] 244 mg/dL High 78-110 [facility] Comment on above: Performed By: #### C BC #### [address] [address] Glucose [Mass/Vol] 303 mg/dL High 78-110 [facility] Comment on above: Performed By: #### C #### [facility] [address] [place] [address] Progress Note - [employer] Progress Note - [...] femoral vein. Results called to ELROY Snider. Glue Spreading Machine Operator: Maribel Collins RVT Radiologist Report Signature Line [...] Collins 12/31/2018 10:57 EDT Electronically signed by Glenn Holt CNPlas Ramon 12/31/18 13:28 EDT Normal [facility] VL Extremity Venous Duplex Dontae Stone 12-31-2018 VL Extremity Venous Duplex Lower Left Preliminary Technologist Report Left lower extremity: Appeared to be no evidence of acute or chronic DVT in the visualized veins. Normal comparative study of the right common femoral vein. Results called to ELROY Snider. Glue Spreading Machine Operator: aMribel Collins RVT Radiologist Report Left lower extremity [...] Electronically Signed in Other Vendor System) Normal [facility] Consultation Note - Gener[employer] n 12-30-2018 Consultation Note - Generic Chief Compla int LEFT KNEE PAIN/ARTHRITIS-KAMINI EDULED FOR TOTAL LEFT KNEE Reason for Consultation diabetes management History of Present Illness PCP: Suzie mota CNP- [facility] orthopedist: Dr. Juan Casey urologist: Dr. juan luis Lane spine surgeon: Dr. Krishan Espana- [place], [place] The patient is a 68-year-old female with [...] replacement - per ortho recommendations - on [place] prn pain and IV dilaudid prn breakthrough pain - Xarelto prn DVT prophylaxis. 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 Has rxs for Xarelto and [place] to be continued on discharge - plans [...] Limited # of times, Dispense From Location: [place] glucose, 12.5 g, IV Push, Injection, As Indicated for 20 doses, PRN other (see comment), First Dose: 12/30/18 15:58:00 EDT, Stop Date: Limited # of times, Dispense From Location: Leonhlq-YBF-6V insulin aspart, 4, Subcutaneous, Injection, Once, First Dose: 12/30/18 22:51:00 EDT, Stop Date: 12/30/18 22:51:00 EDT insulin aspart, 1-8 units, Subcutaneous, Injection, ACHS, First Dose: 12/31/18 7:30:00 EDT Lactated Ringers Injection intravenous solution 1,000 mL, 1,000 mL, Soln-IV, IV, 80 mL/hr, Start Date: 12/30/18 15:56:00 EDT, Dispense From Location: BV 6NU lisinopril, 40 mg, Oral, Tab, qAM, First Dose: 12/31/18 9:00:00 EDT, Dispense From Location: Jznvyrh-NQF-4F meclizine, 12.5 mg, Oral, Tab, Daily, PRN dizziness, First Dose: 12/30/18 15:56:00 EDT, Dispense From Location: Bxbfeyl-WKA-1F omeprazole, 20 mg, Oral, Cap-DR, qAM, First Dose: 12/31/18 7:00:00 EDT, Dispense From Location: Xppgctd-XCF-2W ADA Diet Blood Glucose Monitoring POC Blood Glucose Monitoring POC Blood Glucose Monitoring POC Blood Glucose Monitoring POC Insulin Safety Popejoy Insulin Safety [place]joy Notify Provider Notify Provider Notify Provider Notify [...] 2 mL, IV Push, q6hr, PRN Prescriptions Burlington 5 mg-325 mg oral tablet, 1 tabs, [...] (12/08/18) Methicillin Resistant Staph aurus(MRSA): Negative (12/30/18) [place] Absolute: 0.7 (12/08/18) [place] Auto: 10.3 (12/08/18) Neutro Absolute: 3.4 (12/08/18) Neutro Auto: 53.2 (12/08/18) POC Gluc Random: 374 mg/dL (12/30/18) RBC: 4.56 (12/08/18) RDW: 13.9 (12/08/18) Sed Rate: 13 (12/08/18) Total Protein: 7.6 (12/08/18) UA Mucus: Present (12/08/18) UA RBC Quant: 0 (12/08/18) UA Squepi Cells Quant: 1 (12/08/18) UA WBC Quant: 1 (12/08/18) Diagnostic Results ECG 12/08/18 with evidence of prior inferior IL Electronically signed by DoedMarcia hunt DO 12/30/18 23:17 EDT glucose prior to supper [...] on regular LR 80/hr. Electronically signed by DoedMarcia hunt DOne 12/30/18 23:19 EDT Normal [facility] MRSA, PCRon 12-30-2018 INR Coag (Bld) [Relative time] Negative Normal [facility] Comment on above: Result Comment: The Ongage Xpert MRSA Assay is a qualitative in [...] the clinician. Performed By: #### C #### [address] [address] Operative Reporton 9 Operative Report Indication for Surgery Degenerative arthritis left knee Preoperative Diagnosis Degenerative arthritis left knee Postoperative Diagnosis Same Operation Left total knee replacement Parveen persona knee Persona CR 7 femoral component Persona stemmed E plateau 10 mm CR vitamin E poly- 32 mm vitamin E patellar dome Surgeon(s) Dr. Percy Casey Lap Layer Ce Jodi ANDERSON Anesthesia Spinal Estimated Blood [...] go with a 32 mm patella dome. Maupin holes were placed. The knee was then [...] Fluid Count 1 L Electronically signed by Carmela ARORA Juanbrennon Jimenes 12/30/18 11:47 EDT Normal [facility] POC Glucose Randomon 019 Glucose [Mass/Vol] 374 mg/dL High 78-110 [facility] Comment on above: Performed By: #### C BC #### [address] [address] Glucose [Mass/Vol] 334 mg/dL High 78-110 [facility] Comment on above: Performed By: #### C BC #### [address] [address] Glucose [Mass/Vol] 141 mg/dL High 78-110 [facility] Comment on above: Performed By: #### C BC #### [address] [address] Glucose [Mass/Vol] 179 mg/dL High 78-110 [facility] Comment on above: Performed By: #### C [id number] #### [address] [address] C Urineon 12-10-2018 C Urine Final 20-30,000 cfu/ml Mixed gram positive ananth isolated. This urine contains 3 or more organisms which is inconsistent with clean catch collection. Consider the possibility of contamination during collection. No identification or susceptibility performed as results would be misleading [facility] Comment on above: Performed By: #### U RC #### [address] [address] .UA Microscp Aon 12-08-2018 UA Mucus Present Abnormal Absent [facility] Comment on above: Performed By: #### C [id number] #### [address] [address] UA RBC Quant 0 /HPF Normal 0-5 [facility] Comment on above: Performed By: #### C [id number] #### [address] [address] UA Squepi Cells Quant 1 /HPF Normal 0-29 [facility] Comment on above: Performed By: #### C [id number] #### [address] [address] UA WBC Quant 1 /HPF Normal 0-5 [facility] Comment on above: Performed By: #### C [id number] #### [place] [id number] .eGFRon 12-08-2018 eGFR Non-AA >60 Normal >=60 [facility] Comment on above: Result Comment: Resu lt [...] dosing. Performed By: #### E GFR #### [place] [id number] eGFR AA >60 Normal >=60 [facility] Comment on above: Result Comment: Resu lt = 0-14.9 mL/min/1.73 m2 Kidney failure or Dialysis Result = 15-29 mL/min/1.73 m2 Severe decrease in GFR Result = 30-59 mL/min/1.73 m2 Moderate decrease in GFR Result >= 60 mL/min/1.73 m2 Normal or increased GFR Performed By: #### E GFR #### [address] [address] CBC w/ Diffon 12-08-2018 Erythrocyte distribution wid th (RBC) [Ratio] 13.9 % Normal 11.6-14.8 [facility] Comment on above: Performed By: #### C BC #### [address] [address] Hematocrit (Bld) [Volume fraction] 39.7 % Normal 36.0-46.0 [facility] Comment on above: Performed By: #### C BC #### [address] [address] Hemoglobin (Bld) [Mass/Vol] 12.9 g/dL Normal 12.0-16. 0 [facility] Comment on above: Performed By: #### C BC #### [address] [address] MCH (RBC) [Entitic mass] 28.3 pg Normal 27.0-35.0 [facility] Comment on above: Performed By: #### C BC #### [address] [address] MCHC (RBC) [Mass/Vol] 32.5 % Normal 31.0-37.0 [facility] Comment on above: Performed By: #### C BC #### [address] [address] MCV (RBC) [Entitic vol] 87.1 fL Normal 80.0-100.0 [facility] Comment on above: Performed By: #### C BC #### [address] [address] Platelet mean volume (Bld) [Entitic vol] 8.2 fL Normal 6.7-10.6 [facility] Comment on above: Performed By: #### C BC #### [address] [address] Platelets (Bld) [#/Vol] 218 x10*3/mcL Normal 150-350 [facility] Comment on above: Performed By: #### C BC #### [address] [address] RBC (Bld) [#/Vol] 4.56 x10*6/mcL Normal 3.80-5.20 [facility] Comment on above: Performed By: #### C BC #### [address] [address] WBC (Bld) [#/Vol] 6.5 x10*3/mcL Normal 4.5-11.0 [facility] Comment on above: Performed By: #### C BC #### [address] [address] CMPon 12-08-2018 Albumin [Mass/Vol] 4.0 g/dL Normal 3.2-4.9 [facility] Comment on above: Result Comment: [facility] Laboratory updated the methodology used for albumin testing on 05/13/18. Albumin measurement was performed using a bromcresol purple dye-binding assay. Performed By: #### C OMP #### [address] [address] Albumin/Globulin [Mass ratio] 1.1 {ratio} Normal 1.1-2 .2 [facility] Comment on above: Performed By: #### C OMP #### [address] [address] Alk Phos 58 IU/L Normal 32-91 [facility] Comment on above: Performed By: #### C OMP #### [address] [address] ALT [Catalytic activity/Vol] 18 U/L Normal 14-54 [facility] Comment on above: Performed By: #### C OMP #### [address] [address] Anion gap [Moles/Vol] 15 mmol/L Normal 7-17 [facility] Comment on above: Performed By: #### C OMP #### [address] [place] [address] AST [Catalytic activity/Vol] 20 U/L Normal 15-41 [facility] Comment on above: Performed By: #### C OMP #### [address] [address] Bili Total 0.6 mg/dL Normal 0.3-1.2 [facility] Comment on above: Performed By: #### C OMP #### [address] [address] Calcium [Mass/Vol] 9.2 mg/dL Normal 8.5-10.3 [facility] Comment on above: Performed By: #### C OMP #### [address] [address] Chloride [Moles/Vol] 100 mmol/L Normal 98-110 [facility] Comment on above: Performed By: #### C OMP #### [address] [place] [address] CO2 [Moles/Vol] 25 mmol/L Normal 22-32 [facility] Comment on above: Performed By: #### C OMP #### [address] [place] [address] Creatinine [Mass/Vol] 0.63 mg/dL Normal 0.44-1.03 [facility] Comment on above: Performed By: #### C OMP #### [address] [place] [address] Glucose [Mass/Vol] 156 mg/dL High 74-118 [facility] Comment on above: Performed By: #### C OMP #### [address] [address] Potassium [Moles/Vol] 4.0 mmol/L Normal 3.4-4.8 [facility] Comment on above: Performed By: #### C OMP #### [address] [address] Protein [Mass/Vol] 7.6 g/dL Normal 6.5-8.1 [facility] Comment on above: Performed By: #### C OMP #### [address] [address] Sodium [Moles/Vol] 136 mmol/L Normal 133-142 [facility] Comment on above: Performed By: #### C OMP #### [address] [address] Urea nitrogen [Mass/Vol] 16 mg/dL Normal 8-26 [facility] Comment on above: Performed By: #### C OMP #### [address] [address] Urea nitrogen/Creatinine [Ma ss ratio] 25.4 mg/mg High 10.0-20.0 [facility] Comment on above: Performed By: #### C OMP #### [address] [address] Diff Autoon 12-08-2018 Baso Absolute 0.0 x10*3/mcL Normal 0.0-0.2 [facility] Comment on above: Performed By: #### . Automated Diff #### [address] [address] Basophils/100 WBC (Bld) 0.8 % Normal 0.0-1.5 [facility] Comment on above: Performed By: #### . Automated Diff #### [address] [address] Eos Absolute 0.2 x10*3/mcL Normal 0.0-0.4 [facility] Comment on above: Performed By: #### . Automated Diff #### [address] [address] Eosinophils/100 WBC (Bld) 2.8 % Normal 0.0-5.4 [facility] Comment on above: Performed By: #### . Automated Diff #### [address] [address] Lymphocytes (Bld) [#/Vol] 2.1 x10*3/mcL Normal 1.0-4.8 [facility] Comment on above: Performed By: #### . Automated Diff #### [address] [address] Lymphocytes/100 WBC (Bld) 32.9 % Normal 27.2-40.8 [facility] Comment on above: Performed By: #### . Automated Diff #### [address] [address] [place] Absolute 0.7 x10*3/mcL Normal 0.1-1.1 [facility] Comment on above: Performed By: #### . Automated Diff #### [address] [address] Monocytes/100 WBC (Bld) 10.3 % Normal 3.7-11.9 [facility] Comment on above: Performed By: #### . Automated Diff #### [address] [address] Neutro Absolute 3.4 x10*3/mcL Normal 1.8-7.7 [facility] Comment on above: Performed By: #### . Automated Diff #### [address] [address] Neutro Auto 53.2 % Normal 47.2-70.8 [facility] Comment on above: Performed By: #### . Automated Diff #### [address] [address] ESRon 12-08-2018 ESR (Bld) [Velocity] 13 mm/h Normal 0-30 [facility] Comment on above: Performed By: #### E SR #### [address] [address] Hgb A1con 12-08-2018 HbA1c (Bld) [Mass fraction] 7.7 % A1c High 4.0-6.0 [facility] Comment on above: Performed By: #### H BA1C #### [address] [address] HbA1c (Bld) [Mass fraction] 174 mg/dL High 74-118 [facility] Comment on above: Result Comment: Math ematical Calc approx. The mean gluc equivalency of A1c Performed By: #### H BA1C #### [address] [address] UA Routine without Cultureon 12-08-2018 Color (U) Yellow Normal [facility] Comment on above: Performed By: #### C [id number] #### [address] [address] Glucose (U) [Mass/Vol] Negative Normal Negative [facility] Comment on above: Performed By: #### C [id number] #### [address] [address] Ketones Ql (U) Negative Normal Negative [facility] Comment on above: Performed By: #### C [id number] #### [address] [address] UA Blood Small Abnormal Negative [facility] Comment on above: Performed By: #### C [id number] #### [address] [address] UA Clarity Clear Normal [facility] Comment on above: Performed By: #### C [id number] #### [address] [address] UA Leukocyte Esterase Trace Abnormal Negative [facility] Comment on above: Performed By: #### C [id number] #### [address] [address] UA Nitrite Negative Normal Negative [facility] Comment on above: Performed By: #### C [id number] #### [address] [address] UA pH 5.0 Normal 4.5 - 7.8 [facility] Comment on above: Performed By: #### C [id number] #### [address] [address] UA Protein Negative Normal Negative [facility] Comment on above: Performed By: #### C [id number] #### [facility] [address] [place] [address] UA Spec Grav 1.018 Normal 1.003-1.03 5 [facility] Comment on above: Performed By: #### C [id number] #### [facility] [address] [place] [address] UA Urobilinogen 0.2 mg/dL Normal 0.2 - 1.0 [facility] Comment on above: Performed By: #### C [id number] #### [facility] [address] [place] [address] Urobilinogen Qn (U) Negative Normal Negative [facility] Comment on above: Performed By: #### C [id number] #### [address] [address] Vital Signs Date Time Vital Sign Value Performing Clinician Facility 12-08-2023 09:58-0500 Body height 162.6 cm Narinder Palomo MD Work Phone: [facility] 12-08-2023 09:58-0500 Body mass index (BMI) [Ratio] 33.99 kg/m2 Narinder Palomo MD Work Phone: [facility] 12-08-2023 09:58-0500 Body weight 89.81 kg Narinder Palomo MD Work Phone: [facility] 12-08-2023 09:58-0500 Diastolic blood pressure 98 mm[Hg] Narinder Palomo MD Work Phone: [facility] 12-08-2023 09:58-0500 Heart rate 95 /min Narinder Palomo MD Work Phone: [facility] 12-08-2023 09:58-0500 SaO2% (BldA) [Mass fraction] 96 % Narinder Palomo MD Work Phone: [facility] 12-08-2023 09:58-0500 Systolic blood pressure 158 mm[Hg] Narinder Palomo MD Work Phone: [facility] 12-02-2023 10:52-0500 Body height 162.6 cm Columba Gonzalez MD Work Phone: [facility] 12-02-2023 10:52-0500 Body mass index (BMI) [Ratio] 34.33 kg/m2 Columba Gonzalez MD Work Phone: [facility] 12-02-2023 10:52-0500 Body weight 90.72 kg Columba Gonzalez MD Work Phone: [facility] 12-02-2023 10:52-0500 Diastolic blood pressure 92 mm[Hg] Columba Gonzalez MD Work Phone: [facility] 12-02-2023 10:52-0500 Heart rate 95 /min Columba Gonzalez MD Work Phone: [facility] 12-02-2023 10:52-0500 SaO2% (BldA) [Mass fraction] 96 % Columba Gonzalez MD Work Phone: [facility] 12-02-2023 10:52-0500 Systolic blood pressure 160 mm[Hg] Columba Gonzalez MD Work Phone: [facility] 05-29-2022 14:30-0400 Body height 162.56 cm Krishan Madrid Other [employer] Other 05-29-2022 14:30-0400 Body mass index (BMI) [Ratio] 35.36 kg/m2 Krishan Madrid Other [employer] Other 05-29-2022 14:30-0400 Body weight 93.44 kg Krishan Madrid Other [employer] Other 04-03-2021 10:30-0400 Diastolic blood pressure 66 mm[Hg] Jairo Fisher MD Work Phone: [employer] Work Phone: 04-03-2021 10:30-0400 Heart rate 75 /min Jairo Fisher MD Work Phone: [employer] Work Phone: 04-03-2021 10:30-0400 Respiratory rate 18 /min Jairo Fisher MD Work Phone: [employer] Work Phone: 04-03-2021 10:30-0400 SaO2% (BldA) [Mass fraction] 94 % Jairo Fisher MD Work Phone: [employer] Work Phone: 04-03-2021 10:30-0400 Systolic blood pressure 118 mm[Hg] Jairo Fisher MD Work Phone: [employer] Work Phone: 04-03-2021 10:09-0400 Body temperature 97.39 [degF] Jairo Fisher MD Work Phone: [employer] Work Phone: 04-03-2021 08:45-0400 Body mass index (BMI) [Ratio] 36.05 kg/m2 Jairo Fisher MD Work Phone: [employer] Work Phone: 04-03-2021 08:45-0400 Body weight 95.25 kg Jairo Fisher MD Work Phone: [employer] Work Phone: 03-13-2021 14:25-0400 Body height 162.6 cm Jairo Fisher MD Work Phone: [employer] Work Phone: Encounters Encounter Date Encounter Type Care Provider Facility Start: 03-02-2024 End: 03-03-2024 Emergency department patient visit [facility] Start: 03-02-2024 End: 03-02-2024 Emergency department patient visit BRISA MUKHERJEE [facility] Start: 01-18-2024 End: 01-18-2024 Emergency department patient visit [facility] Start: 12-12-2023 ambulatory Facility:Elma Connor Start: 12-10-2023 Telephone encounter Narinder villeda MD Work Phone: [facility] - Sleep Disorders Comment on above: Sleep Lab (PSG) Start: 12-08-2023 End: 12-08-2023 ambulatory [facility] Start: 12-08-2023 End: 12-08-2023 Office outpatient new 45 minutes Narinder Palomo MD Work Phone: [facility] Comment on above: Pulmonary nodule (Pr imary Dx); HERMILA (obstructive sleep apnea); Obesity (BMI 30-39.9) Start: 12-02-2023 End: 12-02-2023 ambulatory [facility] Start: 12-02-2023 End: 12-02-2023 Office outpatient visit 15 minutes David Ybarra MD Work Phone: [facility] Card[facility] Comment on above: Other chest pain (Pr imary Dx); Essential hypertension Start: 11-18-2023 ambulatory [facility] Start: 10-26-2023 End: 10-27-2023 Emergency department patient visit JENI CATALAN [facility] Start: 10-21-2023 End: 10-21-2023 ambulatory KAYLA H DICKSON Not Available Start: 09-28-2023 End: 09-29-2023 Emergency department patient visit BRUCE Ena GODWIN [facility] Start: 09-28-2023 End: 09-28-2023 Emergency department patient visit GLORIA K [facility] Start: 09-24-2023 End: 09-25-2023 Emergency department patient visit HERMILO CUMMINGS [facility] Start: 05-15-2023 End: 05-16-2023 ambulatory [facility] Start: 01-05-2023 End: 01-05-[address] LARISA WORRELL . Facility:[facility] Start: 05-29-2022 End: 05-29-2022 ambulatory Krishan Spenceralyson Other [facility] [employer] Other Start: 05-29-2022 Office outpatient vi sit 15 minutes Krishan Madrid [facility] Start: 04-18-2022 End: 04-18-2022 Subsequent hospital visit by physician Gloria Taylor DO Work Phone: [facility] Start: 04-10-2022 End: 04-11-[address] DOCTOR US Facility:[facility] Start: 03-26-[address] DOCTOR US Facility :[facility] Start: 02-11-2022 End: 02-12-[address] DOCTOR SABILLONC Facility:[facility] Start: 04-03-2021 End: 04-03-2021 Subsequent hospital visit by physician Jairo Fisher MD Work Phone: [facility] Start: 09-07-2020 End: 09-07-2020 [facility] Start: 12-06-2019 End: 12-06-2019 Subsequent hospital visit by physician Jeni Antonio [facility] Comment on above: Encounter for well w domonique exam with routine gynecological exam Start: 07-14-2019 End: 07-15-2019 Evaluation and management of inpatient JUANBRENNON JIMENES CARMELA Facility:[facility] Start: 07-02-2019 End: 07-03-2019 Patient encounter procedure JUANBRENNON JIMENES CARMELA Facility:[facility] Start: 12-30-2018 End: 12-31-2018 Patient encounter procedure JUANBRENNON JIMENES CARMELA Facility:[facility] Start: 12-08-2018 End: 12-09-2018 Patient encounter procedure JUAN COOKIE CARMELA Facility:[facility] Start: 06-15-2018 Patient encounter status Abdulaziz Gonzalez MD Work Phone: [facility] Start: 12-22-2017 End: 12-23-2017 Ambulatory DEFAULT PHYSICIAN Facility:[facility] Start: 07-19-2013 End: 05-04-2020 Patient encounter status Jairo Fisher MD Work Phone: [facility] Procedures Date Procedure Procedure Detail Performing Clinician Start: 12-02-2023 Follow-up visit Follow-up COLUMBA GONZALEZ Start: 06-22-2021 Adult depression screening assessment Columba Gonzalez MD Work Phone: Start: 04-03-2021 End: 04-03-2021 [...] DTaP,Tdap and Td Vaccines (2 - Tdap) [facility] Start: 06-14-2026 DTaP/Tdap/Td vaccine (2 - Tdap) DTaP/Tdap/Td vaccine (2 - Tdap) [facility] Start: 04-03-2026 Screening for malignant neoplasm of colon [facility] Start: 12-07-2024 Adult BMI Screening Adult BMI Screening [facility] Start: 12-07-2024 Tobacco Screening Tobacco Screening [facility] Start: 12-02-2024 Adult BMI Screening Adult BMI Screening [facility] Start: 12-02-2024 Tobacco Screening Tobacco Screening [facility] Start: 01-14-2024 Adult BMI Follow Up Plan Adult BMI Follow Up Plan [facility] Start: 12-08-2023 End: 12-08-2023 Patient encounter procedure 12/08/2023 10:00 AM EST Office Visit [facility] [address] [place] [address] Narinder Palomo MD [address] [place] [address] [facility] Start: 06-06-2023 COVID-19 Vaccine ( season) COVID-19 Vaccine ( season) [facility] Start: 06-22-2022 Depression Screening Depression Screening [facility] Start: 06-06-2022 Influenza vaccination Flu vaccine (#1) [facility] [employer] Start: 04-04-2022 Depression Screen Depression Screen natue Start: 03-15-2022 Screening for malignant neoplasm of breast Breast cancer screen natue Start: 06-06-2021 Influenza vaccination Flu vaccine (Season Ended) [employer] Phone: Start: 04-14-2021 Diabetic retinal exam Diabetic retinal exam [employer] Phone: Comment on above: Postponed from 01/11/1960 (Not Indicated ) Start: 04-10-2021 End: 04-10-2021 Patient encounter procedure 04/10/2021 Office Visit General Surgery Jairo Fisher MD [address] [place] [address] [address] [place] [address] [facility] Part [facility] Start: 04-04-2021 End: 04-04-2021 Patient encounter procedure 04/04/2021 Office Visit Obstetrics and Gynecology Inderjit Garcia MD [address] [place] [address] [address] [place] [address] [facility] Start: 04-04-2021 Annual Wellness Visit (AWV) Annual Wellness Visit (AWV) [employer] Phone: Comment on above: Postponed from 03/28/2019 (Not Indicated ) Start: 04-04-2021 Creatinine measurement Creatinine monitoring [facility] Phone: Comment on above: Postponed from 11/19/2018 (Not Indicated ) Start: 04-04-2021 Diabetic foot examination Diabetic foot exam [facility] Phone: Comment on above: Postponed from 01/11/1960 (Not Indicated ) Start: 04-04-2021 Diabetic microalbuminuria test Diabetic microalbuminuria test [employer] Phone: Comment on above: Postponed from 01/11/1968 (Not Indicated ) Start: 04-04-2021 Hemoglobin A1c measurement A1C test (Diabetic or Prediabetic) [employer] Phone: Comment on above: Postponed from 01/11/1960 (Not Indicated ) Start: 04-04-2021 Lipid panel Lipid screen [employer] Phone: Comment on above: Postponed from 01/11/1960 (Not Indicated ) Start: 04-04-2021 Potassium monitoring [email or web address] Comment on above: Postponed from 11/19/2018 (Not Indicated ) Start: 03-15-2020 Colon cancer screen colonoscopy Colon cancer screen colonoscopy [place] Start: 03-28-2019 Annual Wellness Visit (AWV) Annual Wellness Visit (AWV) [place] Start: 11-19-2018 Creatinine monitoring Creatinine monitoring [place] Start: 11-19-2018 Potassium monitoring Potassium monitoring [place] Start: 10-11-2017 Breast cancer screen Breast cancer screen [place] Start: 07-14-2017 Pneumococcal 65+ years Vaccine (2 of 2 - PPSV23) Pneumococcal 65+ years Vaccine (2 of 2 - PPSV23) [place] Start: 09-08-2015 Shingles Vaccine (2 of 3) Shingles Vaccine (2 of 3) [place], [place] Start: 2015 DEXA (modify frequency per FRAX score) DEXA (modify frequency per FRAX score) [place] Start: 2015 Fall Risk Screening Fall Risk Screening [facility] Start: 2005 Screening for osteoporosis DEXA (modify frequency per FRAX score) [facility] [employer] Start: 1995 Screening for malignant neoplasm of colon [facility] Start: 1969 Hepatitis B vaccine (1 of 3 - Risk 3-dose series) Hepatitis B vaccine (1 of 3 - Risk 3-dose series) [place] Start: 01-11-1968 Diabetic foot examination Diabetic Foot Exam [facility] Start: 01-11-1968 Diabetic microalbuminuria test Diabetic microalbuminuria test [place] Start: 01-11-1968 Diabetic retinal exam Diabetic retinal exam [facility] Start: 01-11-1968 Hepatitis C screening Hepatitis C screen [facility] Start: 01-11-1968 Urine screening for protein Diabetic microalbuminuria test [facility] Start: 1962 COVID-19 Vaccine (1) COVID-19 Vaccine (1) [facility] [place] Phone: Start: 01-11-1960 [object Object] Diabetic foot exam [place] Start: 01-11-1960 A1C test (Diabetic or Prediabetic) A1C test (Diabetic or Prediabetic) [place] Start: 01-11-1960 Diabetic foot examination Diabetic foot exam [facility] [employer] Start: 01-11-1960 Diabetic retinal exam Diabetic retinal exam [place] Start: 01-11-1960 Hemoglobin A1c measurement A1C test (Diabetic or Prediabetic) [facility] Start: 01-11-1960 Lipid panel Lipids [facility] Start: 01-11-1960 Lipid screen Lipid screen [place] Start: 1955 COVID-19 Vaccine (1) COVID-19 Vaccine (1) [facility] Start: 1950 Annual Wellness Visit (AWV) Annual Wellness Visit (AWV) [facility] Start: 1950 Glaucoma screening Diabetic Ophthalmology Exam [facility] Start: 1950 Hepatitis C screen Hepatitis C screen [place], [place] Start: 1950 Hepatitis C screening Hepatitis C screen [facility] [place] Phone: Start: 1950 Medicare Annual Wellness Visit Medicare Annual Wellness Visit [facility] End: 12-06-2019 Cytopathology procedure, preparation of smear, genital source [facility] Routine Encounter for well woman exam with routine gynecological exam 1 Occurrences starting 12/06/2019 until 12/06/2019 [place] Comment on above: 1 Occurrences starting 12/06/2019 until 12/06/2019 End: 04-03-2021 Glucose [Mass/volume] in Serum or Plasma POCT glucose Point of Care Testing STAT One Time for 1 Occurrences starting 04/03/2021 until 04/03/2021 [employer] Work Phone: Comment on above: One Time for 1 Occurrences starting 03/07 until 04/03/2021 [facility] Work Phone: Comment on above: Release Upon Ordering for 1 Occurrences starting 04/03/2021 End: 04-03-2021 Protime-INR Protime-INR Lab STAT One Time for 1 Occurrences starting 04/03/2021 until 04/03/2021 [facility] Phone: Comment on above: One Time for 1 Occurrences starting 03/07 until 04/03/2021 End: 12-07-2024 PSG Diagnostic [facility] Routine HERMILA (obstructive sleep apnea) 1 Occurrences starting 12/08/2023 until 12/07/2024 [facility] Work Phone: Comment on above: 1 Occurrences starting 12/08/2023 until 12/07/2024 Surgical Pathology Surgical Path ology Lab Routine Release Upon Ordering for 1 Occurrences starting 04/03/2021 [facility] Phone: Comment on above: Release Upon Ordering for 1 Occurrences starting 04/03/2021 Immunizations Immunization Date Immunization Notes Care Provider Fa cility 07-14-2016 pneumococcal conjuga te vaccine, 13 valent [facility] 06-14-2016 diphtheria, tetanus toxoids and acellular pertussis vaccine Jeni Antonio [facility] [place] 07-14-2015 zoster vaccine, live [place]id [place] Payers Date Payer Category Payer Medicare [id number] 2019 Medicare MEDICARE MEDICAR E PART A AND B xxxxxxxxxxx 2019-Present [phone] [place] [address] xxxxxxxxxxx [id number] 2019 Medicare 2018 Unknown 2017 Unknown [id number] 1990 Medicare [id number] 1959 Medicare [id number] 1950 Unknown [id number] 2.16.840.1.582040.3.579.2.196 1950 Unknown [id number] 2.16.840.1.860835.3.579.2.196 1950 Unknown [id number] 2.16.840.1.432713.3.579.2.196 1950 Unknown [id number] 2.16.840.1.908052.3.579.2.196 1950 Unknown [id number] 2.16.840.1.813252.3.579.2.593 1950 Unknown [id number] 2.16.840.1.381068.3.579.2.593 1950 Unknown [id number] 2.16.840.1.913153.3.579.2.593 1950 Unknown [id number] 2.16.840.1.004368.3.579.2.593 1950 Unknown [id number] 2.16.840.1.088795.3.579.2.173 1950 Unknown [id number] 2.16.840.1.663483.3.579.2.125 9 1950 Unknown [id number] 2.16.840.1.415429.3.579.2.128 6 1950 Unknown [id number] 2.16.840.1.689107.3.579.2.128 6 1950 Unknown [id number] 2.16.840.1.685255.3.579.2.128 6 1950 Unknown [id number] 2.16.840.1.659049.3.579.2.128 1950 Unknown [id number] 2.16.840.1.121508.3.579.2.128 1950 Unknown [id number] 2.16.840.1.786568.3.579.2.128 1950 Unknown [id number] 2.16.840.1.943935.3.579.2.128 1950 Unknown [id number] 2.16.840.1.211007.3.579.2.128 1950 Unknown [id number] 2.16.840.1.580870.3.579.2.128 6 1950 Unknown [id number] 2.16.840.1.691540.3.579.2.128 6 1950 Unknown [id number] 2.16.840.1.671336.3.579.2.128 6 1950 Unknown [id number] 2.16.840.1.443744.3.579.2.128 1950 Unknown [id number] 2.16.840.1.822691.3.579.2.128 6 1950 Unknown [id number] 2.16.840.1.953052.3.579.2.128 6 Medicaid Self Pay [id number] Self-pay Self Pay [id number] Social History Date Type Detail Facility Start: 12-06-2019 End: 12-24-2022 Tobacco smoking status NHIS Never smoker [facility] [place] Start: 12-06-2019 End: 04-18-2022 Alcohol intake [facility]drinker [facility]: 1950 [facility] JUAN Start: 1950 Sex Assigned At Female F [facility] Start: 04-03-2021 End: 12-24-2022 Tobacco use and exposure Never used [employer] Exposure to SARS-CoV -2 (event) Not sure [employer] Start: 10-28-2020 End: 12-02-2023 [facility] Start: 12-02-2023 End: 12-08-2023 [facility] Start: 10-28-2020 End: 12-02-2023 History of Social function [facility] Adolescent depressio n screening assessment 0 [facility] Medical Equipment Procedure Code Equipment Code Equipment Origin al Text Equipment Identifier Dates Mesh Srg Bard [id number] Hrn Sft Rpl [id number] - [id number] Start: 06-15-2018 Goals Date Patient Goal Desired Activity /State Clinical Notes 04-03-2021 to 12-10-2023 Telephone Encounter - Radha Landers - 12/10/2023 9:50 AM ESTTelephone Encounter - Radha Landers - 12/10/2023 9:50 AM Maurisio Palomo MD - 12/08/2023 10:00 AM EST Note Date & Type Note Facility 12-10-2023 Miscellaneous Notes 3/ received PSG order 12/09 patient will call back to schedule, sent letter with main phone number. Order Deferred PSG order and 3/4 Taleb notes in epic documented in this encounter [facility] 12-10-2023 Telephone encounter Note 3/4 received PSG order 12/09 patient will call back to schedule, sent letter with main phone number. Order Deferred PSG order and 3/4 Taleb notes in epic [employer] 12-08-2023 History of Presen t illness Narrative Images from the original note were not included. [facility] PUL[facility]LEEP [facility]ICINE [address] [id number] Subjective: Chief Complaint Pulmonary nodules HPI The patient is 73-year-old female who is here as a new patient. She was referred to us because of abnormal CT scan of the chest. She hadCT scan of the chest that was [facility] in [facility] on 11/18/2023 showed multiple bilateral lung nodules, tiny, largest 4 mm. Patient denies any shortness a breath. Patient never smoked. Patient had diagnostic sleep study on 02/01/2021 The apnea-hypopnea index (AHI) is 31.9 (AASM) / 14 (CMS) events per hour, and the lowest saturation [...] Medical History: Diagnosis Date Deep vein thrombosis ([facility]) Diabetes mellitus type 2, controlled ([facility]) GERD (gastroesophageal reflux disease) Hyperlipidemia Hypertension Renal cyst 11/16/2019 Schizophrenia simplex ([facility]) Past Surgical History: Procedure Laterality Date BACK SURGERY 2014 fatty lipoma removed from back BREAST BIOPSY Left 2006 benign CHOLECYSTECTOMY COLONOSCOPY W/ POLYPECTOMY 2014 benign CYSTOSCOPY N/A 08/05/2023 Performed by Seb Aguirre MD at [facility] CYSTOSCOPY N/A 12/01/2018 Performed by Seb Aguirre MD at [facility] HIP SURGERY Left INCISIONAL HERNIA REPAIR 2009, 2016 INJECTION BLOCK EPIDURAL CAUDAL STEROID N/A 06/08/2021 Performed by Km Barba MD at [facility] INJECTION BLOCK EPIDURAL CAUDAL STEROID N/A 04/27/2021 Performed by Km Barba MD at [facility] INJECTION BLOCK NERVE MEDIAL BRANCH: bilat L 4/5 5/1 mbb Bilateral 01/19/2021 Performed by Km Barba MD at [facility] INJECTION BLOCK NERVE MEDIAL BRANCH: Bilat L 4/5 5/1 mbb Bilateral 12/01/2020 Performed by Km Barba MD at [facility] KNEE ARTHROSCOPY Bilateral KNEE SURGERY left total knee RADIOFREQUENCY ABLATION SPINAL: left L 4/5 5/1 Left 03/09/2021 Performed by Km Barba MD at [facility] RADIOFREQUENCY ABLATION SPINAL: right L 4/5 5/1 Right 02/23/2021 Performed by mK Barba MD at [facility] REPAIR OF RECURRENT ABDOMINAL HERNIA WITH BARD SOFT MESH, EXPLANTATION OF OLD MESH, T.A.R. PROCEDURE N/A 06/15/2018 Performed by Jose Vasquez MD at [facility] REPLACEMENT TOTAL KNEE Right VAGINAL HYSTERECTOMY 1977 [...] involving me in this patient's care. Narinder Palomo MD. Pulmonary and Critical Care Physician 12/08/23. Please note that portions of this note were generated using voice recognition [employer] dictation software. Although every effort was made to ensure the accuracy of this automated welder production line gas, some errors in welder production line gas may have occurred. documented in this encounter [facility] 12-02-2023 History of Presen t illness Narrative Mari Dimas Jose Date of visit: 12/02/2023 Date of : 1950 Age: 73 y.o. Patient Active Problem List Diagnosis Diabetes mellitus ([facility]) Hyperlipidemia Essential hypertension Obesity, Class III, BMI 40-49.9 (morbid obesity) ([facility]) Osteoarthritis of right knee S/P right unicompartmental knee replacement Recurrent ventral hernia Pre-op testing Mixed stress and urge urinary incontinence Severe obesity (BMI 35.0-39.9) with comorbidity ([facility]) Lumbosacral spondylosis without myelopathy Renal cyst Other [...] type 2 diabetes mellitus. miscellaneous medical supply [facility] 1 tablet pseudoephedrine-guaiFENesin (MUCINEX D) 60-600 mg [...] antihypertensives this morning. Systolic blood pressures been 10021 mmHg at home. She actually physically feels well. She has been stressed out about her who has cognitive issues. No orthopnea. No PND. Past Medical History: Diagnosis Date Deep vein thrombosis ([facility]) Diabetes mellitus type 2, controlled ([facility]) GERD (gastroesophageal reflux disease) Hyperlipidemia Hypertension Renal cyst 11/16/2019 Schizophrenia simplex ([facility]) No data recorded No data recorded No data recorded Past Surgical History: Procedure Laterality Date BACK SURGERY 2014 fatty lipoma removed from back BREAST BIOPSY Left 2006 benign CHOLECYSTECTOMY COLONOSCOPY W/ POLYPECTOMY 2014 benign CYSTOSCOPY N/A 08/05/2023 Performed by Seb Aguirre MD at [facility] CYSTOSCOPY N/A 12/01/2018 Performed by Seb Aguirre MD at [facility] HIP SURGERY Left INCISIONAL HERNIA REPAIR 2009, 2016 INJECTION BLOCK EPIDURAL CAUDAL STEROID N/A 06/08/2021 Performed by Km Barba MD at [facility] INJECTION BLOCK EPIDURAL CAUDAL STEROID N/A 04/27/2021 Performed by Km Barba MD at [facility] INJECTION BLOCK NERVE MEDIAL BRANCH: bilat L 4/5 5/1 mbb Bilateral 01/19/2021 Performed by Km Barba MD at [facility] INJECTION BLOCK NERVE MEDIAL BRANCH: Bilat L 4/5 5/1 mbb Bilateral 12/01/2020 Performed by Km Barba MD at [facility] KNEE ARTHROSCOPY Bilateral KNEE SURGERY left total knee RADIOFREQUENCY ABLATION SPINAL: left L 01/08 02/03 Left 03/09/2021 Performed by Km Barba MD at [facility] RADIOFREQUENCY ABLATION SPINAL: right L 01/08 02/03 Right 02/23/2021 Performed by Km Barba MD at [facility] REPAIR OF RECURRENT ABDOMINAL HERNIA WITH BARD SOFT MESH, EXPLANTATION OF OLD MESH, T.A.R. PROCEDURE N/A 06/15/2018 Performed by Jose Vasquez MD at [facility] REPLACEMENT TOTAL KNEE Right VAGINAL HYSTERECTOMY 1976 [...] normal EF MPI 02/2021 2. Normal coronaries [facility] 2013 3. Normal EF TTE 02/2021 4. [...] about 1 year (around 12/02/2024). PCP: GLORIA TAYLOR DO Referring Physician: Gloria Taylor DO [address] [place] [address] documented in this encounter [facility] 05-29-2022 Evaluation note Encounter Date Diagnosis Assessment [...] an as-needed basis or is symptoms worsen. [employer] Other 06-29-2021 History of Present illness Narrative* [...] a responsible adult. Yes documented in this encounterTripda Phone: evaluation note* Diagnosis GERD (gastroesophageal reflux disease)- Primary Esophageal reflux documented in this encounter [employer] Phone: evaluation note* Diagnosis Other chest pain- Primary Essential hypertension Unspecified essential hypertension documented in this encounter [employer] [facility] note* Diagnosis Pulmonary nodule- Primary Other diseases of lung, not elsewhere classified HERMILA (obstructive sleep apnea) Obstructive sleep apnea (adult) (pediatric) Obesity (BMI 30-39.9) documented in this encounter [employer] System[facility] general Narrative - Reported* Type Description [...] History hysterectomy Hospitalization History See Sx Hx [employer] Other Hospital Discharge instructions* Instructions* Rimma Monroe [...] the nearest Emergency Room. documented in [employer] Work Phone: InstructionsNot on filedocumented in this encounter [facility] [employer] SystemInstructionsNot on filedocumented in this encounter [facility] [employer] SystemInstructionsNot on filedocumented in this encounter [facility] Summary Purpose Family History No Family History Records FoundNo Family History Records FoundNo Family History Records FoundNo Family History Records FoundNo Family History Records FoundNo Family History Records FoundNo Family History Records FoundNo Family History Records FoundNo Family History Records Found Advance Directives No Advanced Directives Records FoundDocuments on File Type Date Recorded Patient Director Education Expl anation Advance Directives and Living Will Power of [place] Department Supervisor Latest Code Status on File Code Status Date Activated Date Inactivated Comments Full Code 12/21/2012 12:14 PM 12/24/2012 4:06 PM Advance Directive Response Recorded Date/ Time Advance Directives No August 11:18am Documents on File Type Date Recorded Patient Director Education Expl anation ACP-Advance Directive ACP-Power of [place] Department Supervisor Latest Code Status on File Code Status Date Activated Date Inactivated Comments Full Code 04/03/2021 8:29 AM Full Code 12/21/2012 12:14 PM 12/24/2012 4:06 PM Documents on File Type Date Recorded Patient Director Education Expl anation ACP-Advance Directive ACP-Power of [place] Department Supervisor Latest Code Status on File Code Status [...] mg, 2 tabs, Oral, q8hr, PRN Prescriptions [place] 5 mg-325 mg oral tablet, 1 tabs, Oral, q6hr, PRN Xa (more content not included)... Assessments Diagnosis Encounter for well woman exam with routine gynecological exam Chief Complaint and Reason for Visit Chief Complaint z78.0 Reason for Referral Specialty Diagnoses / Procedures Referred By Tommy monroe Referred To Contact Diagnoses HERMILA (obstructive sleep apnea) Procedures PSG Diagnostic Narinder Palomo MD [address] [facility] [place] [address] Referral ID Status Reason Start Date Expiration Date V isits Requested Visits Authorized [id number] Pending Review 12/08/2023 12/07/2024 1 1 Additional Source Comments INFORMATION SOURCE (unrecogn ized section and content) DATE CREATED AUTHOR 03/27/2018 [facility] DATE CREATED AUTHOR AUTHOR'S ORGANIZ ATION 09/21/2019 [facility] DATE CREATED AUTHOR AUTHOR'S ORGANIZ ATION 01/08/2023 [facility] DATE CREATED AUTHOR AUTHOR'S ORGANIZ ATION 03/17/2023 [facility]ical Specialist DATE CREATED AUTHOR AUTHOR'S ORGANIZ ATION 05/17/2023 [facility] DATE CREATED AUTHOR AUTHOR'S ORGANIZ ATION 10/22/2023 [facility] d[facility] Specialists [facility] DATE CREATED AUTHOR AUTHOR'S ORGANIZ ATION 12/09/2023 [facility] DATE CREATED AUTHOR AUTHOR'S ORGANIZ ATION 12/13/2023 [facility] DATE CREATED AUTHOR AUTHOR'S ORGANIZ ATION 03/03/2024 [facility] Reason for Visit (unrecogniz ed section and content) Status Reason Specialty Diagnoses / Procedures Re ferred By Contact Referred To Contact Diagnoses Symptoms of gastroesophageal reflux Constipation REFLUX SYMPTOMS, CONSTIPATION Procedures FL COLONOSCOPY FLX DX W/COLLJ SPEC WHEN PFRMD FL ESOPHAGOGASTRODUODENOSCOPY TRANSORAL DIAGNOSTIC COLONOSCOPY DIAGNOSTIC EGD ESOPHAGOGASTRODUODENOSCOPY Jairo Fisher MD [address] [place] [address] [facility] Reason Comments Follow-up EST PT F/U 1 YR L/S MS Reason Comments New Patient CT: 10/31/2023FT: n oneSOB: noneTobacco Use: neverStarted Tobacco: n/aHx Sleep Apnea: Yes, not currently on PAP Therapy, patient states she does not want to be on PAP therapyPS02/01/2021 Specialty Diagnoses / Procedures Referred By Tommy monroe Referred To Contact Pulmonary Medicine Diagnoses Pulmonary nodule Gloria Taylor, [address] [place] [address] sp Pulm Sleep Med [address] [facility] [place] [address] Referral ID Status Reason Start Date Expiration Date Visits Requested Visits Authorized [id number] Pending Review Specialty Services Required 11/10/2023 11/09/2024 [...] Care Teams (unrecognized sec tion and content) Cleat Thrower Relationship Specialty Start Date End Date Gloria Taylor DO [address] [place], [place] [phone] PCP - General Family Medicine 05/09/21 Cleat Thrower Relationship Specialty Start Date End Date JoaquinkaminiGloria youngblood [address] [place] [address] PCP - [facility] 03/28/23 Cleat Thrower Relationship Specialty Start Date End Date JoaquinlorenGloria gleason [address] [place] [address] PCP - [facility] 03/28/23 Cleat Thrower Relationship Specialty Start Date End Date Gloria Taylor DO [address] [place], [place] [id number] PCP - [facility] 03/28/23 FOR RECORDS PERTAINING TO PATIENTS WHO [...] BE BASED ON THE PRIMARY CLINICAL RECORDS. [facility] [employer] [facility]. provides no warranty or guarantee of the accuracy or completeness of information in this document.
--- NOTE | 2024-03-04 20:25 | ED.URI1 ---
HPI - URI/Sore Throat General Chief Complaint: Upper Respiratory Infection Stated Complaint: CONGESTION-GURGLING/PHLEGM Time Seen by Provider: 03/04/24 20:16 Source: patient Limitations: no limitations History of Present Illness HPI Narrative: 74-year-old female presents for cough. She has had this for about 2 and half weeks. She was seen at another hospital emergency department a few days ago and she states she had a negative COVID test and a negative chest x-ray and she was not prescribed anything. She still has phlegm and she is worried it might be dripping down from her nose and sinuses. No hemoptysis or known fever. Related Data Home Medications ?Medication ?Instructions ?Recorded ?Confirmed atorvastatin 20 mg tablet 20 mg PO DAILY 10/31/23 01/18/24 carvedilol 25 mg tablet 25 mg PO BID 10/31/23 01/18/24 lisinopril 40 mg tablet 40 mg PO DAILY 10/31/23 01/18/24 metformin 500 mg tablet 500 mg PO BID 10/31/23 01/18/24 Previous Rx's ?Medication ?Instructions ?Recorded benzonatate 100 mg capsule 100 mg PO TID PRN cough #20 caps 03/04/24 doxycycline hyclate 100 mg capsule 100 mg PO BID 10 days #20 caps 03/04/24 loratadine 5 mg-pseudoephedrine ER 1 tab PO Q12H PRN nasal congestion 03/04/24 120 mg tablet,extended #20 tabs release,12hr (Claritin-D 12 Hour) Allergies Allergy/AdvReac Type Severity Reaction Status Date / Time honey Allergy Severe Verified 03/04/24 20:18 Penicillins Allergy Severe Verified 03/04/24 20:18 Review of Systems ROS Narrative A ten point review of systems is negative except as noted above. PFSH PFSH Social History Smoking status: Never smoker Exam Narrative Exam Narrative: Nurses note and vital signs reviewed and patient is not hypoxic. General: The patient appears well and in no apparent distress. Patient is resting comfortably on the examination chair and is speaking in full sentences Skin: Warm, dry, no pallor noted. There is no rash noted. Head: Normocephalic, atraumatic Eye: Normal conjunctiva, no drainage Ears, Nose, Mouth, and Throat: oral mucosa is moist. Nares patent. Mouth without vesicles. Cardiovascular: Regular Rate and Rhythm Respiratory: Patient is in no distress, no accessory muscle use, lungs are clear to auscultation, no wheezing, rales or rhonchi. Good air movement present Back: non-tender GI: Soft and nontender Musculoskeletal: The patient has no evidence of calf tenderness, no pitting edema, symmetrical pulses noted bilaterally Neurological: Awake and alert Psychiatric: Cooperative Constitutional Vital Signs, click to edit/add: Last Vital Signs Temp 98.1 F 03/04/24 20:15 Pulse 96 H 03/04/24 20:15 Resp 20 03/04/24 20:15 BP 171/84 H 03/04/24 20:15 Pulse Ox 96 03/04/24 20:15 O2 Del Method Room Air 03/04/24 20:15 Course Vital Signs Vital signs: Vital Signs Temperature 98.1 F 03/04/24 20:15 Pulse Rate 96 H 03/04/24 20:15 Respiratory Rate 20 03/04/24 20:15 Blood Pressure 171/84 H 03/04/24 20:15 Pulse Oximetry 96 03/04/24 20:15 Oxygen Delivery Method Room Air 03/04/24 20:15 Temperature 98.1 F 03/04/24 20:15 Pulse Rate 96 H 03/04/24 20:15 Respiratory Rate 03/04/24 20:15 Blood Pressure 171/84 H 03/04/24 20:15 Pulse Oximetry 96 03/04/24 20:15 Oxygen Delivery Method Room Air 03/04/24 20:15 MDM - URI/Sore Throat MDM Narrative Medical decision making narrative: Chest x-ray shows no acute findings. COVID testing was offered but she does not feel it is necessary and she had one 2 or 3 days ago. Treatment diagnosis and follow-up were discussed with the patient. Differential Diagnosis Differential diagnosis: Likely upper respiratory infection, sinusitis, viral infection and bronchitis Imaging Data Chest x-ray: Radiologist's impression: ITS Impressions Chest X-Ray 03/04/24 22:35 IMPRESSION: Lungs are clear. No acute cardiopulmonary disease. Electronically authenticated by: SARY MATHUR Date: 03/04/2024 23:11 Discharge Plan Discharge Stand Alone Forms: Portal Instructions Chief Complaint: Upper Respiratory Infection Clinical Impression: Upper respiratory infection Patient Disposition: Home, Self-Care Time of Disposition Decision: 23:23 Condition: Good Mode of Transportation: Private Vehicle Prescriptions / Home Meds: New doxycycline hyclate 100 mg capsule 100 mg PO BID 10 Days Qty: 20 0RF benzonatate 100 mg capsule 100 mg PO TID PRN (Reason: cough) Qty: 20 0RF Claritin-D 12 Hour 5-120 mg tablet extended release 12 hr 1 tab PO Q12H PRN (Reason: nasal congestion) Qty: 20 0RF No Action metformin 500 mg tablet 500 mg PO BID lisinopril 40 mg tablet 40 mg PO DAILY atorvastatin 20 mg tablet 20 mg PO DAILY carvedilol 25 mg tablet 25 mg PO BID Print Language: Beninese Instructions: Upper Respiratory Infection (ED) Referrals: Gloria Omalley [Primary Care Provider] - 1 week
--- NOTE | 2024-03-04 22:35 | XR_ITS ---
The [address] [address] Patient Name: MARI JAMISON MRN: [id number] date: 1950 Sex: F Assigned Patient Location: ER Current Patient Location: ER Accession/Order Number: [id number] Exam Date: 03/04/2024 22:38 Report Date: 03/04/2024 23:11 At the request of: DESIREE CORTEZ Procedure: XR chest 2V EXAMINATION: XR chest 2V HISTORY: cough COMPARISON: None. FINDINGS: There is no focal airspace consolidation. There is no appreciable pneumothorax or pleural effusion. The pulmonary vascularity is within normal limits for technique. The cardiomediastinal silhouette is within normal limits. XR/XR chest 2V IMPRESSION: Lungs are clear. No acute cardiopulmonary disease. Electronically authenticated by: SARY MATHUR Date: 03/04/2024 23:11
[2024-03-04] MEDS: DOXYCYCLINE MONOHYDRATE 100 MG CAPSULE PO (23:34)
[2024-03-04 23:38] VITALS: BP 156/88; PULSE 78; O2SAT 97
== END 2024-03-04 23:38 | disposition home or self-care (01) ==
PROVIDERS: Emergency Provider Emergency Medicine; PCP Family Medicine
DX: J06.9 Acute upper respiratory infection, unspecified (principal)
CPT/HCPCS: 71046; 99283

== ENCOUNTER 2024-04-09 15:54 | Emergency (ER) | payer MEDICARE, SELFPAY ==
[2024-04-09] VITALS (12 sets, daily range): BP systolic 155–176; BP diastolic 90–118; PULSE 79–150; TEMP 36.8; O2SAT 95–97; BMI 32.4
--- NOTE | 2024-04-09 16:15 | CT_ITS ---
The [address] [address] Patient Name: MARI JAMISON MRN: [id number] date: 1950 Sex: F Assigned Patient Location: ER Current Patient Location: ER Accession/Order Number: [id number] Exam Date: 04/09/2024 17:05 Report Date: 04/09/2024 17:26 At the request of: SALINAS VALE Procedure: CT angio chest EXAM: CT pulmonary angiogram of the chest using 99 mL of IV iodinated contrast. CT scan of the abdomen and pelvis without IV contrast. Dose reduction technique used: Automated exposure control and/or adjustment of the mA and/or kV according to patient size and/or use of iterative reconstruction technique. REASON FOR EXAM: Low back pain, hip pain COMPARISON: CT scan dated 10/31/2023 FINDINGS: CHEST: No pulmonary emboli. No aortic dissection. No pneumothorax. No acute airspace opacities. No pleural effusion. No acute fractures. No concerning pulmonary nodules. No definite lymphadenopathy in the chest. Coronary atherosclerotic calcifications are present. ABDOMEN/PELVIS: Left total hip arthroplasty. Grade 1 anterolisthesis of L4 on L5. Moderate to advanced right hip degenerative change. Hysterectomy. Mildly hyperdense 3.6 cm right renal lesion likely represents a cyst with internal hemorrhage or debris, this measured up to 2.7 cm on 10/30/2019. Cholecystectomy. Colonic diverticulosis. Negative appendix. No free intraperitoneal air. No free fluid in the abdomen or pelvis. No dilated or thickened loops of small bowel or colon. No hydronephrosis or obstructing renal or ureteral calculi. Liver, pancreas, spleen, bilateral kidneys, and bilateral adrenal glands are otherwise unremarkable. No lymphadenopathy in the abdomen or pelvis. Remainder unremarkable. CT/CT angio chest IMPRESSION: 1. No pulmonary embolism or acute abnormalities in chest. 2. No acute abnormalities in the abdomen or pelvis. 3. Right renal lesion has slightly increased in size since 2019 although is favored to be a cyst with internal hemorrhage or debris. Electronically authenticated by: JOSE MARIA VIDAL Date: 04/09/2024 17:26
--- NOTE | 2024-04-09 16:15 | ECG_ITS ---
The [facility] Test Date: 2024-04-09 Pat Name: MARI JAMISON Department: Room: - Gender: Female [employer] Consultant: : 1950 Requested By: Order Number: [id number] Reading MD: URMILA GARIBAY Measurements Intervals [place] Rate: 142 P: 163 UT: 166 QRS: 67 QRSD: 90 T: -4 QT: 282 QTc: 364 Interpretive Statements 1220 Rapid atrial rhythm 4068 Nonspecific [place] abnormality 9140 abnormal rhythm ECG Compared to ECG 02/13/2019 23:25:47 Sinus rhythm no longer present Electronically Signed On 04-09-2024 18:09:16 EDT by URMILA GARIBAY
--- NOTE | 2024-04-09 16:15 | XR_ITS ---
The [address] [address] Patient Name: MARI JAMISON MRN: [id number] date: 1950 Sex: F Assigned Patient Location: ED.MAIN Current Patient Location: ER Accession/Order Number: [id number] Exam Date: 04/09/2024 16:55 Report Date: 04/09/2024 17:15 At the request of: SALINAS VALE Procedure: XR femur SHAMEKA 2V Exam: Radiographs: XR femur SHAMEKA 2V Reason for exam: Leg pain Comparison: None XR/XR femur SHAMEKA 2V IMPRESSION: Moderate right hip degenerative change. Right total knee arthroplasty. Hardware is intact and appropriately positioned. Atherosclerotic calcifications. Remainder of the right femur radiographs is unremarkable. Left total hip arthroplasty. Left total knee arthroplasty. Hardware is intact and appropriately positioned. Atherosclerotic calcifications. Remainder of the left femur radiographs is unremarkable. Electronically authenticated by: JOSE MARIA VIDAL Date: 04/09/2024 17:15
--- NOTE | 2024-04-09 16:16 | CT_ITS ---
The [address] [address] Patient Name: MARI JAMISON MRN: [id number] date: 1950 Sex: F Assigned Patient Location: ER Current Patient Location: ER Accession/Order Number: [id number] Exam Date: 04/09/2024 16:55 Report Date: 04/09/2024 17:26 At the request of: SALINAS VALE Procedure: CT abdomen pelvis wo con EXAM: CT pulmonary angiogram of the chest using 99 mL of IV iodinated contrast. CT scan of the abdomen and pelvis without IV contrast. Dose reduction technique used: Automated exposure control and/or adjustment of the mA and/or kV according to patient size and/or use of iterative reconstruction technique. REASON FOR EXAM: Low back pain, hip pain COMPARISON: CT scan dated 10/31/2023 FINDINGS: CHEST: No pulmonary emboli. No aortic dissection. No pneumothorax. No acute airspace opacities. No pleural effusion. No acute fractures. No concerning pulmonary nodules. No definite lymphadenopathy in the chest. Coronary atherosclerotic calcifications are present. ABDOMEN/PELVIS: Left total hip arthroplasty. Grade 1 anterolisthesis of L4 on L5. Moderate to advanced right hip degenerative change. Hysterectomy. Mildly hyperdense 3.6 cm right renal lesion likely represents a cyst with internal hemorrhage or debris, this measured up to 2.7 cm on 10/30/2019. Cholecystectomy. Colonic diverticulosis. Negative appendix. No free intraperitoneal air. No free fluid in the abdomen or pelvis. No dilated or thickened loops of small bowel or colon. No hydronephrosis or obstructing renal or ureteral calculi. Liver, pancreas, spleen, bilateral kidneys, and bilateral adrenal glands are otherwise unremarkable. No lymphadenopathy in the abdomen or pelvis. Remainder unremarkable. CT/CT abdomen pelvis wo con IMPRESSION: 1. No pulmonary embolism or acute abnormalities in chest. 2. No acute abnormalities in the abdomen or pelvis. 3. Right renal lesion has slightly increased in size since 2019 although is favored to be a cyst with internal hemorrhage or debris. Electronically authenticated by: JOSE MARIA VIDAL Date: 04/09/2024 17:26
--- OUTSIDE RECORDS SUMMARY | 2024-04-09 16:17 | XMS_ITS | CCD ---
Author Organization [facility] Care Team Providers Care Bdr Name Role Phone PHYSICIAN, DEFAULT Unavailable Unavailable [...] Provider Unavailbryson e Krishan [place] Attending Provider Unavailable Primary Care Provider Unavailabl e Gloria [...] Unavailbryson WORRELL ., DR PERES Admitting Unavailable SUSAN PENDLETON Consulting Unavailable HANNAH SOLER Referring Unavailable RUMSCHLAG, GLORIA Primary Care Unavailable PATSYMIS, KAYLA H Attending Unavailable Rumschlag DO, Gloria K Primary Care Provider NARINDER PALOMO Attending Unavailable RUMSCHLAG, GLORIA K Referring Unavailable RUMSCHLAG, GLORIA K Primary Care Unavailable RUMSCHLAG, GLORIA K Referring Unavailable RUMSCHLAG, GLORIA K Primary Care Unavailable BRUCE GODWIN Attending Unavailable OBRYBRUCE RAMOS Referring Unavailable RUMSCHLAG, GLORIA K Primary Care Unavailable RUMSCHLAG, GLORIA K Primary Care Unavailable LINDY VILLATORO Attending Unavailable MUKHERJEE, BRISA L Primary Care Unavailable IRENA, LYNN Attending Unavailable IRENADELMALYNN Attending Unavailable IRENA, LYNN Referring Unavailable MUKHERJEE, BRISA L Primary Care Unavailable MUKHERJEE, BRISA L Primary Care Unavailable BRECAROLANNSSAMANTHA P Attending Unavailable BREWIS SAMANTHA P Attending Unavailable BREWIS, SAMANTHA P Referring Unavailable MUKHEJREE, BRISA L Primary Care Unavailable RUMSCHLAG, GLORIA K Primary Care Unavailable HERMILO CUMMINGS Attending Unavailable HERMILO CUMMINGS Attending Unavailable CUMMINGSHERMILO A Referring Unavailable RUMSCHLAG, GLORIA K Primary Care Unavailable RUMSCHLAG, GLORIA K Primary Care Unavailable OBRYBRUCE RAMOS Attending Unavailable RUMSCHLAG, GLORIA K Primary Care Unavailable JENI CATALAN Attending Unavailable JENI CATALAN Referring Unavailable RUMSCHLAG, GLORIA K Primary Care Unavailable COLUMBA GONZALEZ Attending Unavailable RUMSCHLAG, GLORIA K Referring Unavailable RUMSCHLAG, GLORIA K Primary Care Unavailable Unavailable Unavailable Unavailable Allergies Allergy Classification Reported Allergen(s) Allergy Type Date of Onset Reaction(s) Facility Penicillins (antibiotic) (1 source) Penicillins Drug Allergy 3 Hives, Nausea And Vomiting [facility] (5 sources) Honey; Translations: [Unknown] Drug allergy (disorder) 0 [facility] (6 sources) Penicillins; Translations: [penicillins] Drug allergy (disorder) 9 Hives, Nausea And Vomiting [facility] (6 sources) Honey Propensity to adverse reactions to drug 3 Swelling [place] (1 source) Penicillins Propensity to adverse reactions to drug 3 Hives, Nausea And Vomiting [place] (1 source) Penicillin Drug Allergy Unknown [employer] Other (3 sources) Penicillins Propensity to adverse reactions to drug 7 Hives, Nausea [employer] (5 sources) Perflutren; Translations: [PERFLUTREN LIPID MICROSPHERES] Drug Allergy 1 [employer] Work Phone: Medications Current Medications Medication Drug [...] E Codes: Fall (1 source) Fall Onset: 3 Esophageal disorders (3 sources) Gastroesophageal reflux disease; [...] lumbar region] Episodic Other aftercare (1 source) buttermaker (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 hypoglycemic drugs; Translations: [INTERMEDIATE USE ORAL HYPOGLYCEMIC DX] Onset: 3 Episodic Other aftercare (1 source) Other rat exterminator (current) drug therapy; Translations: [OTH INTERMEDIATE CURRENT DRUG THERAPY] Onset: 3 Episodic Other [...] Spondylosis; intervertebral disc disorders; other back problems (8 sources) Spinal stenosis of lumbar region; Translations: [Spinal stenosis, lumbar region with neurogenic claudication] Onset: 2 Resolved: 2 Episodic Unclassified (2 sources) Patient encounter status; Translations: [Encounter for well woman exam with routine gynecological exam] Onset: 3 07-19-2013 Unclassified (1 source) INTERMEDIATE INJECT NONINSULN ANTIDIAB; Translations: [INTERMEDIATE INJECT NONINSULN ANTIDIAB] Onset: 3 Unclassified (1 source) New Patient Onset: 4 Unclassified (1 source) Generalized Body Aches Onset: 4 Unclassified (1 source) Cough, unspecified; [...] of thorax, initial encounter] Onset: 3 Episodic Urinary tract infections (3 sources) Recurrent urinary tract infection; Translations: [Urinary tract infection, site not specified] Onset: 3 08-05-2023 Episodic Results Test Name Value Interpretation Reference Range Facility XR SPINE LUMBAR 2 OR 3 VWSon 04-04-2024 XR SPINE LUMBAR 2 OR 3 VWS XR SPINE LUMB AR 2 OR 3 VWS XR SPINE LUMBAR 2 OR 3 VWS INDICATION: Low back pain COMPARISON: XR lumbar spine 10/26/2023 TECHNIQUE: Frontal weight and nonweightbearing and lateral views obtained. FINDINGS: Alignment: Five lumbar type vertebral bodies. Grade 1 anterolisthesis of L4 on L5. Bones: No acute fracture. Preserved vertebral body heights. Joints: Multilevel intervertebral disc space narrowing, most pronounced at L5-S1. Multilevel facet arthropathy. Soft tissues: Surgical clips project over the abdominal right upper quadrant. Atherosclerotic abdominal aorta. Skeletal: Left hip arthroplasty partially visualized. IMPRESSION: * No acute fracture or malalignment. Approved by Resident: Ebenezer Tracey MD on 04/04/2024 3:35 AM I, Zana James MD have personally reviewed the image(s) and agree with and/or edited the report 27 Finalized by Zana James MD on 04/04/2024 3:[address] [facility] XR CHEST 2 VWSon 03-02-2024 XR CHEST [...] Columba Bradford MD on 03/02/2024 12:[address] [facility] SARS/FLU A+B/RSV by NAAT/Mol maria eugeniaon 03-01-2024 SARS/FLU A+B/RSV by NAAT/Molecular FLU A PCR [...] operators who are performing tests using either [employer] or [employer] systems and is limited to laboratories that [...] repeat. Fact Sheet for Healthcare Providers: https://www.fda.go v/media/460799/maci nload Fact Sheet for Patients: https://www.fda.go v/media/358236/maci nload Normal [facility] Comment on above: Performed By: #### C OVFLR #### [facility] ([id number]) [address] [facility] [place] [address] XR RIBS RT 3 VWS W PA [...] Alvarenga MD on 10/26/2023 11:55 AM Normal [facility] XR SPINE LUMBAR 2 OR 3 VWSon [...] Mosley MD on 10/26/2023 11:56 AM Normal [facility] XR SPINE THORACIC 2 VWSon XR SPINE [...] Kain Bishop MD on 10/26/2023 11:53 AM I, Michael Borjas MD have personally reviewed the image(s) and agree with and/or edited the report 04 Finalized by Michael Borjas MD on 10/26/2023 12:00 PM Normal [facility] XR FACIAL BONES MIN 3 VWSon 09-28-2023 [...] Mosley MD on 09/28/2023 8:37 AM Normal [facility] BASIC METABOLIC PANLon 09-24 Anion gap [Moles/Vol] 9 mmol/L Normal 5-15 [facility] Comment on above: Performed By: #### B MP, CBCA, 28203-5 #### [facility] ([id number]) [address] [place] [address] 55366 Calcium [Mass/Vol] 9.3 mg/dL Normal 8.5-10.5 [facility] Comment on above: Performed By: #### B MP, CBCA, 50024-3 #### [facility] ([id number]) [address] [place] [address] 27166 Chloride [Moles/Vol] 102 mmol/L Normal 98-109 [facility] Comment on above: Performed By: #### B CHEYENNE PHILLIPS, 57352-7 #### [facility] ([id number]) [address] [place] [address] 08923 CO2 [Moles/Vol] 26 mmol/L Normal 22-32 [facility] Comment on above: Performed By: #### B CHEYENNE PHILLIPS, 45754-1 #### [facility] ([id number]) [address] [place] [address] 05696 Creatinine [Mass/Vol] 0.64 mg/dL Normal 0.40-1.00 [facility] Comment on above: Result Comment: METH OD TRACEABLE TO IDMS STANDARD Performed By: #### B CHEYENNE PHILLIPS, 41234-7 #### [facility] ([id number]) [address] [place] [address] 24603 eGFR (CKD-EPI) NON-RACE DEPENDENT >90 Normal >59 [facility] Comment on above: Result Comment: Reported eGFR is based on the CKD-EPI 2020 equation that does not use a race coefficient. Performed By: #### B CHEYENNE PHILLIPS, 58219-9 #### [facility] ([id number]) [address] [place] [address] 16534 Glucose [Mass/Vol] 202 mg/dL High 65-99 [facility] Comment on above: Performed By: #### B CHEYENNE PHILLIPS, 23236-0 #### [facility] ([id number]) [address] [place] [address] 94027 Potassium [Moles/Vol] 3.8 mmol/L Normal 3.5-5.0 [facility] Comment on above: Performed By: #### B CHEYENNE PHILLIPS, 49994-2 #### [facility] ([id number]) [address] [place] [address] 51934 Sodium [Moles/Vol] 137 mmol/L Normal 134-146 [facility] Comment on above: Performed By: #### B MP, CBCA, 29065-6 #### [facility] ([id number]) [address] [place] [address] 91562 Urea nitrogen [Mass/Vol] 13 mg/dL Normal 5-27 [facility] Comment on above: Performed By: #### B MP, CBCA, 71506-7 #### [facility] ([id number]) [address] [place] [address] 37160 CBC AND AUTO DIFFon 12-20-20 23 ABSOLUTE BASOPHIL 0.1 X10E9/L Normal 0.0-0.2 [facility] Comment on above: Performed By: #### B MP, CBCA, 34823-7 #### [facility] ([id number]) [address] [place] [address] 02873 ABSOLUTE NEUTROPHIL 3.7 X10E9/L Normal 1.5-6.6 [facility] Comment on above: Performed By: #### B MP, CBCA, 37017-2 #### [facility] ([id number]) [address] [place] [address] 28995 Basophils/100 WBC (Bld) 1.2 % Normal [facility] Comment on above: Performed By: #### B MP, CBCA, 40578-0 #### [facility] ([id number]) [address] [place] [address] 02119 Eosinophils (Bld) [#/Vol] 0.4 10*3/uL Normal 0.0-0.4 [facility] Comment on above: Performed By: #### B MP, CBCA, 61054-3 #### [facility] ([id number]) [address] [place] [address] 63333 Eosinophils/100 WBC (Bld) 6.7 % Normal [facility] Comment on above: Performed By: #### B ALAN, CBCA, 49040-8 #### [facility] ([id number]) [address] [place] [address] 81165 Erythrocyte distribution wid th (RBC) [Ratio] 13.7 % Normal 11.5-15.0 [facility] Comment on above: Performed By: #### B ALAN, CBCA, 08645-7 #### [facility] ([id number]) [address] [place] [address] 84073 Hematocrit (Bld) [Volume fraction] 39.1 % Normal 35-47 [facility] Comment on above: Performed By: #### B ALAN, CBCA, 95043-0 #### [facility] ([id number]) [address] [place] [address] 48965 Hemoglobin (Bld) [Mass/Vol] 12.9 g/dL Normal 11.7-15. 5 [facility] Comment on above: Performed By: #### B ALAN, CBCA, 02224-4 #### [facility] ([id number]) [address] [place] [address] 48306 Lymphocytes (Bld) [#/Vol] 1.4 10*3/uL Normal 1.0-3.5 [facility] Comment on above: Performed By: #### B ALAN, CBCA, 52863-0 #### [facility] ([id number]) [address] [place] [address] 83248 Lymphocytes/100 WBC (Bld) 22.9 % Normal [facility] Comment on above: Performed By: #### B ALAN, CBCA, 78400-2 #### [facility] ([id number]) [address] [place] [address] 11640 MCH (RBC) [Entitic mass] 28.4 pg Normal 27-34 [facility] Comment on above: Performed By: #### B MP, CBCA, 87119-5 #### [facility] ([id number]) [address] [place] [address] 38569 MCHC (RBC) [Mass/Vol] 33.0 g/dL Normal 32-36 [facility] Comment on above: Performed By: #### B MP, CBCA, 88110-3 #### [facility] ([id number]) [address] [place] [address] 12283 MCV (RBC) [Entitic vol] 86 fL Normal 80-100 [facility] Comment on above: Performed By: #### B MP, CBCA, 86171-4 #### [facility] ([id number]) [address] [place] [address] 13536 Monocytes (Bld) [#/Vol] 0.6 10*3/uL Normal 0-0.9 [facility] Comment on above: Performed By: #### B MP, CBCA, 03767-9 #### [facility] ([id number]) [address] [place] [address] 12682 Monocytes/100 WBC (Bld) 9.8 % Normal [facility] Comment on above: Performed By: #### B MP, CBCA, 30087-6 #### [facility] ([id number]) [address] [place] [address] 10403 Neutrophils/100 WBC (Bld) 59.4 % Normal [facility] Comment on above: Performed By: #### B MP, CBCA, 87789-0 #### [facility] ([id number]) [address] [place] [address] 69056 Platelet mean volume (Bld) [Entitic vol] 8.4 fL Normal 7-12 [facility] Comment on above: Performed By: #### B MP, CBCA, 63904-1 #### [facility] ([id number]) [address] [place] [address] 39822 Platelets (Bld) [#/Vol] 219 10*3/uL Normal 150-450 [facility] Comment on above: Performed By: #### B MP, CBCA, 34192-5 #### [facility] ([id number]) [address] [place] [address] 02842 RBC COUNT 4.53 X10E12/L Normal 3.80-5.20 [facility] Comment on above: Performed By: #### B MP, CBCA, 49740-9 #### [facility] ([id number]) [address] [place] [address] 22851 WBC (Bld) [#/Vol] 6.2 10*3/uL Normal 4.0-11.0 [facility] Comment on above: Performed By: #### B MP, CBCA, 60283-0 #### [facility] ([id number]) [address] [place] [address] 84212 SARS/FLU A+B/RSV by NAAT/Mol [facility] 09-24-2023 SARS/FLU A+B/RSV by NAAT/Molecular FLU A [...] operators who are performing tests using either [employer]iaLive DX or [employer] systems and is limited to laboratories that [...] repeat. Fact Sheet for Healthcare Providers: https://www.fda.go v/[employer]/932071/maci nload Fact Sheet for Patients: https://www.fda.go v/[employer]/008086/maci nload Normal [facility] Comment on above: Performed By: #### C OVFLR #### [facility] ([id number]) [address] [place] [address] 98482 TROPONIN Ion 09-24-2023 Troponin I.cardiac [Mass/Vol] ng/mL Normal 0.00-0 .04 [facility] Comment on above: Performed By: #### B MP, CBCA, 07799-5 #### [facility] ([id number]) [address] [place] [address] 19549 XR CHEST 2 VWSon 09-24-2023 XR CHEST [...] Thomas Shrestha on 09/24/2023 9:20 AM Normal [facility] Cult,Urineon 05-16-2023 Cult,Urine Specimen Description .CLEAN CATCH URINE Culture NO SIGNIFICANT GROWTH Report Status FINAL 05/16/2023 Normal [facility] Comment on above: Performed By: #### U RC #### [facility] [address] [place], [place] [id number] Imagery Analyst: Dallas Burton MD [facility] [address] [place] [address] Imagery Analyst: Lindy Odonnell MD Urinalysis w/ Microon 2022 Bilirubin, SemiQt,Ur Negative Normal NEG [facility] Comment on above: Performed By: #### U AMIC #### [facility] [address] [place] [address] Imagery Analyst: Lindy Odonnell MD Blood, Urine Negative Normal NEG [facility] Comment on above: Performed By: #### U AMIC #### [facility] [address] [place] [address] Imagery Analyst: Lindy Odonnell MD Clarity (U) Clear Normal CLEAR [facility] Comment on above: Performed By: #### U AMIC #### [facility] [address] [place] [address] Imagery Analyst: Lindy Odonnell MD Color (U) Yellow Normal YEL [facility] Comment on above: Performed By: #### U AMIC #### [facility] [address] [place] [address] Imagery Analyst: Lindy Odonnell MD Epithelial cells LM Ql (Urin e sed) 2 TO 5 Normal 0-25 [facility] Comment on above: Performed By: #### U AMIC #### [facility] [address] [place] [address] Imagery Analyst: Lindy Odonnell MD Glucose Ql (U) Negative Normal NEG [facility] Comment on above: Performed By: #### U AMIC #### [facility] [address] [place], [place] [id number] Imagery Analyst: Lindy Odonnell MD Ketones Ql (U) Negative Normal NEG [facility] Comment on above: Performed By: #### U AMIC #### [facility] [address] [place], [place] [address] Imagery Analyst: Lindy Odonnell MD Leukocyte esterase Test stri p Ql (U) Negative Normal NEG [facility] Comment on above: Performed By: #### U AMIC #### [facility] [address] [place] [address] Dr. [place], [place] [id number] Imagery Analyst: Lindy Odonnell MD Nitrite,Ur Negative Normal [facility] Comment on above: Performed By: #### U AMIC #### [facility] [address] [place] [address] Dr. [place], [place] [id number] Imagery Analyst: Lindy Odonnell MD PH,Ur 5.5 Normal 5.0-9.0 [facility] Comment on above: Performed By: #### U AMIC #### [facility] [address] [place] [address] Dr. [place], [place] [id number] Imagery Analyst: Lindy Odonnell MD Protein Ql (U) Negative Normal [facility] Comment on above: Performed By: #### U AMIC #### [facility] [address] [place], [place] [address] Imagery Analyst: Lindy Odonnell MD Spec. [place],Ur 1.025 High 1.010-1.02 0 [facility] Comment on above: Performed By: #### U AMIC #### [facility] [address] [place], [place] [phone] Imagery Analyst: Lindy Odonnell MD Urine RBC's 0 TO 2 Normal 0-2 [facility] Comment on above: Performed By: #### U AMIC #### [facility] [address] [place] [address] Imagery Analyst: Lindy Odonnell MD Urine WBC's 0 TO 2 Normal 0-5 [facility] Comment on above: Performed By: #### U AMIC #### [facility] [address] [place], [facility] Imagery Analyst: Lindy Odonnell MD Urobilinogen,Ur Normal Normal 0.0-1.0 [facility] Comment on above: Performed By: #### U AMIC #### [facility] [address] [place] [address] Imagery Analyst: Lindy Odonnell MD CBC AUTO DIFFon 01-05-2023 BASO # 0.0 103/ul Normal 0.0-0.1 [facility] Comment on above: Performed By: #### C BC #### [facility] [address] [place] [address] Dr. Traci Cerna Basophils/100 WBC (Bld) 0.7 % Normal 0.2-2.0 [facility] Comment on above: Performed By: #### C BC #### [facility] [address] [place] [address] Dr. Traci Cerna EO # 0.2 103/ul Normal 0.0-0.7 [facility] Comment on above: Performed By: #### C BC #### [facility] [address] [place] [address] Dr. Traci Cerna Eosinophils/100 WBC (Bld) 3.5 % Normal 0.9-7.0 [facility] Comment on above: Performed By: #### C BC #### [facility] [address] [place] [address] Dr. Traci Cerna Erythrocyte distribution wid th (RBC) [Ratio] 13.6 % Normal 11.0-15.0 [facility] Comment on above: Performed By: #### C BC #### [facility] [address] [place] [address] Dr. Traci Cerna Hematocrit (Bld) [Volume fraction] 38.9 % Normal 36.0-48.0 [facility] Comment on above: Performed By: #### C BC #### [facility] [address] [place] [address] Dr. Traci Cerna Hemoglobin (Bld) [Mass/Vol] 12.8 g/dL Normal 12.0-16. 0 [facility] Comment on above: Performed By: #### C BC #### [facility] [address] [place] [address] Dr. Traci Cerna IG # 0.01 10e3/ul Normal 0.00-0.03 [facility] Comment on above: Performed By: #### C BC #### [facility] [address] [place] [address] Dr. Traci Cerna IG % 0.2 % Normal 0.0-0.5 [facility] Comment on above: Performed By: #### C BC #### [facility] [address] [place] [address] Dr. Traci Cerna LYMPH # 2.0 103/ul Normal 1.2-3.8 [facility] Comment on above: Performed By: #### C BC #### [facility] [address] [place] [address] Dr. Traci Cerna Lymphocytes/100 WBC (Bld) 37.8 % Normal 20.5-60.0 [facility] Comment on above: Performed By: #### C BC #### [facility] [address] [place] [address] Dr. Traci Cerna MANUAL DIFF REQ NO Normal [facility] Comment on above: Performed By: #### C BC #### [facility] [address] [place] [address] Dr. Traci Cerna MCH (RBC) [Entitic mass] 28.6 pg Normal 26.7-34.0 [facility] Comment on above: Performed By: #### C BC #### [facility] [address] [place] [address] Dr. Traci Cerna MCHC (RBC) [Mass/Vol] 32.9 g/dL Normal 29.9-35.2 [facility] Comment on above: Performed By: #### C BC #### [facility] [address] [place] [address] Dr. Traci Cerna MCV (RBC) [Entitic vol] 86.8 fL Normal 81.0-99.0 [facility] Comment on above: Performed By: #### C BC #### [facility] [address] [place] [address] Dr. Traci Cerna MONO # 0.6 103/ul Normal 0.3-0.8 [facility] Comment on above: Performed By: #### C BC #### [facility] [address] [place] [address] Dr. Traci Cerna Monocytes/100 WBC (Bld) 10.8 % Normal 1.7-12.0 [facility] Comment on above: Performed By: #### C BC #### [facility] [address] [place] [address] Dr. Traci Cerna NEUT # 2.5 103/ul Normal 1.4-6.5 [facility] Comment on above: Performed By: #### C BC #### [facility] [address] [place] [address] Dr. Traci Cerna Neutrophils/100 WBC (Bld) 47.0 % Normal 43.0-75.0 [facility] Comment on above: Performed By: #### C BC #### [facility] [address] [place] [address] Dr. Traci Cerna Platelet mean volume (Bld) [Entitic vol] 9.9 fL Normal 9.5-13.5 [facility] Comment on above: Performed By: #### C BC #### [facility] [address] [place] [address] Dr. Traci Cerna PLT 218 103/ul Normal 150-450 [facility] Comment on above: Performed By: #### C BC #### [facility] [address] [place] [address] Dr. Traci Cerna RBC 4.48 106/ul Normal 4.20-5.40 [facility] Comment on above: Performed By: #### C BC #### [facility] [address] [address] [address] Traci Cerna WBC 5.4 103/ul Normal 4.0-11.0 [facility] Comment on above: Performed By: #### C BC #### [facility] [address] [address] [address] Traci C[place] CT NECK ST WO CONon 01-06-[address] WO CON CT SOFT [...] SUSAN PENDLETON Date: 2023-01-05 20:31 Normal [facility] PROF CHEM 8 (BAS METB)on Anion gap [Moles/Vol] 12.3 mmol/L Normal [facility] Comment on above: Performed By: #### T EMMA BMP #### [facility] [address] [address] [address] Traci Cerna Calcium [Mass/Vol] 9.4 mg/dL Normal 8.5-10.1 [facility] Comment on above: Performed By: #### T SH, BMP #### [facility] [address] [address] [address] Traci Cerna Chloride [Moles/Vol] 105 mmol/L Normal 98-107 [facility] Comment on above: Performed By: #### T SH, BMP #### [facility] [address] [address] [address] Traci Cerna CO2 [Moles/Vol] 29.0 mmol/L Normal 21.0-32.0 [facility] Comment on above: Performed By: #### T SH, BMP #### [facility] [address] [address] [address] Traci Cerna Creatinine [Mass/Vol] 0.78 mg/dL Normal 0.55-1.02 [facility] Comment on above: Performed By: #### T SH, BMP #### [facility] [address] [address] [address] Traci Cerna EGFR-AF [place] >60 Normal >=60 [facility] Comment on above: Performed By: #### T SH, BMP #### [facility] [address] [address] [address] Traci Cerna EGFR-NON AF [place] >60 Normal >=60 [facility] Comment on above: Performed By: #### T SH, BMP #### [facility] [address] [address] [address] Traci Cerna Glucose [Mass/Vol] 178 mg/dL Critically high 74-106 [facility] Comment on above: Performed By: #### T SH, BMP #### [facility] [address] [address] [address] Traci Cerna Potassium [Moles/Vol] 4.3 mmol/L Normal 3.5-5.1 [facility] Comment on above: Performed By: #### T SH, BMP #### [facility] [address] [address] [address] Traci Cerna Sodium [Moles/Vol] 142 mmol/L Normal 136-145 [facility] Comment on above: Performed By: #### T SH, BMP #### [facility] [address] [address] [address] Traci Cerna Urea nitrogen [Mass/Vol] 21.0 mg/dL Critically high 7.0-18 .0 [facility] Comment on above: Performed By: #### T SH, BMP #### [facility] [address] [place], [place] [address] Dr. Traci Cerna Urea nitrogen/Creatinine [Ma ss ratio] 26.9 mg/mg Normal [facility] Comment on above: Performed By: #### T SH, BMP #### [facility] [address] [place], [place] [address] Dr. Traci Cerna TSHon 01-05-2023 TSH 0.650 uIU/mL Normal 0.358-3.74 0 [facility] Comment on above: Performed By: #### T SH, BMP #### [facility] [address] [place], [place] [address] Dr. Traci Cerna US Thyroidon 12-30-2022 US Thyroid CLINICAL HISTORY: Enlarged thyroid on physical exam. COMPARISON: None available. TECHNIQUE: Ultrasound of the thyroid was performed with a regional survey. Reference: ACR Thyroid, Imaging Recording and Data System (TI-RADS): White paper of the ACR TI-RADS committee. Journal of the [employer] of radiology: Volume 14, issue 5, [...] by Mac Dai on 01/01/2023 0924 Normal [facility] [place] [employer] Quality Manager Colonoscopy studyOrdered By: Jairo Fisher on 04-03-2021 No dictation [employer] Work Phone: [employer] Work Phone: EsophagogastroduodenoscopyOr dered By: Jairo Fisher on 04-03-2021 No dictation [employer] Work Phone: [employer] Work Phone: .UA Microscp Aon 07-15-2019 UA Mucus Present Abnormal Absent [facility] Comment on above: Performed By: #### E GFR #### [place] [address] UA RBC Quant 0 /HPF Normal 0-5 [facility] Comment on above: Performed By: #### E GFR #### [place] [address] UA Squepi Cells Quant 1 /HPF Normal 0-29 [facility] Comment on above: Performed By: #### E GFR #### [address] [id number] UA WBC Quant 1 /HPF Normal 0-5 [facility] Comment on above: Performed By: #### E GFR #### [place] [address] Consultation Note - Generico n 07-15-2019 Consultation Note - Generic Chief Compla int LEFT HIP ARTHRITIS,PAIN SCHEDULED: TOTAL LEFT HIP REPLACEMENT Reason for Consultation Type 2 DM History of Present Illness Mari is s/p left total hip replacement preformed by Dr Stewart'ena yesterday, we have been asked to see [...] Koki Marquez DO 07/15/19 01:[address] [facility] Inpatient Clinical Summaryon 07-15-[address] [facility] [address] [place] [address] [address] Clinical Summary Person Information Name: Mari Jamison Age: 69 Years : 1950 Sex: Female PCP: Marital Status: PCP: Race: White Ethnicity: Not or Language: New Zealander Visit Id: Visit Reason: Speciality: Acuity: Enc Type: Inpatient Med Service: Surgery Arrival: 07/14/2019 05:57:15 Discharge: Dispo Type: Address: [address] [place] [id number] Diagnosis: History of total left hip replacement; [...] STAY New Medications Printed Prescriptions hydrocodone-acetam inophen ([place] 5 mg-325 mg oral tablet) 1 Tabs [...] PATIENT?S CURRENT MEDICATIONS Printed Prescriptions hydrocodone-acetam inophen ([place] 5 mg-325 mg oral tablet) 1 Tabs [...] Follow up: With: Address: When: Juan Casey MD [address] [place] [phone] [facility] POC Glucose Randomon 019 Glucose [Mass/Vol] 278 mg/dL High 78-110 [facility] Comment on above: Performed By: #### E GFR #### [facility] [address] [place] [address] Glucose [Mass/Vol] 189 mg/dL High 78-110 [facility] Comment on above: Performed By: #### C OMP #### [address] [place] [address] Glucose [Mass/Vol] 181 mg/dL High 78-110 [facility] Comment on above: Performed By: #### C OMP #### [address] [place] [address] Glucose [Mass/Vol] 236 mg/dL High 78-110 [facility] Comment on above: Performed By: #### C OMP #### [address] [address] Glucose [Mass/Vol] 233 mg/dL High 78-110 [facility] Comment on above: Performed By: #### C OMP #### [address] [address] Glucose [Mass/Vol] 283 mg/dL High 78-110 [facility] Comment on above: Performed By: #### C OMP #### [address] [address] UA w Culture if Indon 2018 Color (U) Yellow Normal [facility] Comment on above: Performed By: #### E GFR #### [address] [address] Glucose (U) [Mass/Vol] 150 mg/dL Abnormal Negative [facility] Comment on above: Performed By: #### E GFR #### [address] [address] Ketones Ql (U) Negative Normal Negative [facility] Comment on above: Performed By: #### E GFR #### [address] [address] UA Blood Negative Normal Negative [facility] Comment on above: Performed By: #### E GFR #### [address] [address] UA Clarity Clear Normal [facility] Comment on above: Performed By: #### E GFR #### [address] [address] UA Leukocyte Esterase Negative Normal Negative [facility] Comment on above: Performed By: #### E GFR #### [address] [address] UA Nitrite Negative Normal Negative [facility] Comment on above: Performed By: #### E GFR #### [address] [address] UA pH 6.0 Normal 4.5 - 7.8 [facility] Comment on above: Performed By: #### E GFR #### [address] [address] UA Protein Negative Normal Negative [facility] Comment on above: Performed By: #### E GFR #### [address] [address] UA Source Clean Catch Normal [facility] Comment on above: Performed By: #### E GFR #### [address] [address] UA Spec Grav 1.010 Normal 1.003-1.[address] [facility] Comment on above: Performed By: #### E GFR #### [address] [address] UA Urobilinogen 0.2 mg/dL Normal 0.2 - 1.0 [facility] Comment on above: Performed By: #### E GFR #### [address] [address] Urobilinogen Qn (U) Negative Normal Negative [facility] Comment on above: Performed By: #### E GFR #### [address] [address] .eGFRon 07-14-2019 eGFR Non-AA >60 Normal >=60 [facility] Comment on above: Result Comment: Resu [...] dosing. Performed By: #### C OMP #### [address] [address] eGFR AA >60 Normal >=60 [facility] Comment on above: Result Comment: Resu lt = 0-14.9 mL/min/1.73 m2 Kidney failure or Dialysis Result = 15-29 mL/min/1.73 m2 Severe decrease in GFR Result = 30-59 mL/min/1.73 m2 Moderate decrease in GFR Result >= 60 mL/min/1.73 m2 Normal or increased GFR Performed By: #### C OMP #### [address] [address] Basic Metabolic Profileon Anion gap [Moles/Vol] 14 mmol/L Normal 7-17 [facility] Comment on above: Performed By: #### C [id number] #### [address] [address] Calcium [Mass/Vol] 8.9 mg/dL Normal 8.5-10.3 [facility] Comment on above: Performed By: #### C [id number] #### [address] [address] Chloride [Moles/Vol] 104 mmol/L Normal 98-110 [facility] Comment on above: Performed By: #### C D:[id number] #### [address] [address] CO2 [Moles/Vol] 25 mmol/L Normal 22-32 [facility] Comment on above: Performed By: #### C D:[id number] #### [address] [address] Creatinine [Mass/Vol] 0.75 mg/dL Normal 0.44-1.03 [facility] Comment on above: Performed By: #### C D:[id number] #### [address] [address] Glucose [Mass/Vol] 206 mg/dL High 74-118 [facility] Comment on above: Performed By: #### C [id number] #### [address] [address] Potassium [Moles/Vol] 3.8 mmol/L Normal 3.4-4.8 [facility] Comment on above: Performed By: #### C D:[id number] #### [address] [address] Sodium [Moles/Vol] 139 mmol/L Normal 133-142 [facility] Comment on above: Performed By: #### C D:[id number] #### [address] [address] Urea nitrogen [Mass/Vol] 20 mg/dL Normal 8-26 [facility] Comment on above: Performed By: #### C D:[id number] #### [address] [address] Urea nitrogen/Creatinine [Ma ss ratio] 26.7 mg/mg High 10.0-20.0 [facility] Comment on above: Performed By: #### C D:[id number] #### [address] [address] Hgb & Hcton 07-14-2019 Hematocrit (Bld) [Volume fraction] 33.0 % Low 36.0-46.0 [facility] Comment on above: Performed By: #### C D:[id number] #### [address] [address] Hemoglobin (Bld) [Mass/Vol] 10.9 g/dL Low 12.0-16. 0 [facility] Comment on above: Performed By: #### C D:[id number] #### [address] [address] Operative Reporton 9 Operative Report Indication for Surgery Degenerative arthritis left hip Preoperative Diagnosis Degenerative arthritis left hip Postoperative Diagnosis Same Operation Left total hip replacement Parveen 54 mm Continuum cup Fit more B4 femoral stem Versus 36 mm head +0 neck 2 acetabular screws 36 mm inner diameter elevated liner Surgeon(s) Dr. Juan Casey Manager Of Security [facility] Anesthesia General Estimated Blood Loss 550 [...] layer was then closed with #1 Ethibond [id number] sutures. The second half of the vancomycin [...] Juan Casey MD 07/14/19 10:[address] [facility] POC Glucose Randomon 019 Glucose [Mass/Vol] 215 mg/dL High 78-110 [facility] Comment on above: Performed By: #### E GFR #### [address] [address] Glucose [Mass/Vol] 119 mg/dL High 78-110 [facility] Comment on above: Performed By: #### C D:[id number] #### [address] [address] Glucose [Mass/Vol] 136 mg/dL High 78-110 [facility] Comment on above: Performed By: #### C D:[id number] #### [address] [place] [address] Glucose [Mass/Vol] 204 mg/dL High 78-110 [facility] Comment on above: Performed By: #### C D:[id number] #### [address] [place] [address] Glucose [Mass/Vol] 267 mg/dL High 78-110 [facility] Comment on above: Performed By: #### C D:[id number] #### [address] [address] Glucose [Mass/Vol] 164 mg/dL High 78-110 [facility] Comment on above: Performed By: #### C D:[id number] #### [address] [address] XR Hip Operative 1 View Left on [...] Electronically Signed in Other Vendor System) Normal [facility] ABO/Rhon 07-02-2019 ABO/Rh SD 07/14/2019 DCon: 0 ABO/Rh: O NEG Normal [facility] Comment on above: Performed By: #### C D:[id number] #### [address] [address] ABSC Autoon 07-02-2019 ABSC Auto Negative Normal [facility] Comment on above: Performed By: #### C D:[id number] #### [address] [address] CBC w/ Diffon 07-02-2019 Erythrocyte distribution wid th (RBC) [Ratio] 14.1 % Normal 11.6-14.8 [facility] Comment on above: Performed By: #### C D:[id number] #### [address] [address] Hematocrit (Bld) [Volume fraction] 39.9 % Normal 36.0-46.0 [facility] Comment on above: Performed By: #### C D:[id number] #### [address] [address] Hemoglobin (Bld) [Mass/Vol] 13.5 g/dL Normal 12.0-16. 0 [facility] Comment on above: Performed By: #### C D:[id number] #### [address] [address] MCH (RBC) [Entitic mass] 28.9 pg Normal 27.0-35.0 [facility] Comment on above: Performed By: #### C D:[id number] #### [address] [address] MCHC (RBC) [Mass/Vol] 33.8 % Normal 31.0-37.0 [facility] Comment on above: Performed By: #### C D:[id number] #### [address] [address] MCV (RBC) [Entitic vol] 85.6 fL Normal 80.0-100.0 [facility] Comment on above: Performed By: #### C D:[id number] #### [address] [address] Platelet mean volume (Bld) [Entitic vol] 8.3 fL Normal 6.7-10.6 [facility] Comment on above: Performed By: #### C D:[id number] #### [address] [address] Platelets (Bld) [#/Vol] 214 x10*3/mcL Normal 150-350 [facility] Comment on above: Performed By: #### C D:[id number] #### [address] [address] RBC (Bld) [#/Vol] 4.67 x10*6/mcL Normal 3.80-5.20 [facility] Comment on above: Performed By: #### C D:[id number] #### [address] [address] WBC (Bld) [#/Vol] 5.2 x10*3/mcL Normal 4.5-11.0 [facility] Comment on above: Performed By: #### C D:[id number] #### [address] [address] Diff Autoon 07-02-2019 Baso Absolute 0.0 x10*3/mcL Normal 0.0-0.2 [facility] Comment on above: Performed By: #### C D:[id number] #### [address] [address] Basophils/100 WBC (Bld) 0.5 % Normal 0.0-1.5 [facility] Comment on above: Performed By: #### C D:[id number] #### [address] [address] Eos Absolute 0.1 x10*3/mcL Normal 0.0-0.4 [facility] Comment on above: Performed By: #### C D:[id number] #### [address] [address] Eosinophils/100 WBC (Bld) 2.0 % Normal 0.0-5.4 [facility] Comment on above: Performed By: #### C D:[id number] #### [address] [address] Lymphocytes (Bld) [#/Vol] 1.6 x10*3/mcL Normal 1.0-4.8 [facility] Comment on above: Performed By: #### C D:[id number] #### [address] [address] Lymphocytes/100 WBC (Bld) 30.9 % Normal 27.2-40.8 [facility] Comment on above: Performed By: #### C D:[id number] #### [address] [address] [place] Absolute 0.6 x10*3/mcL Normal 0.1-1.1 [facility] Comment on above: Performed By: #### C D:[id number] #### [address] [address] Monocytes/100 WBC (Bld) 11.8 % Normal 3.7-11.9 [facility] Comment on above: Performed By: #### C D:[id number] #### [address] [address] Neutro Absolute 2.8 x10*3/mcL Normal 1.8-7.7 [facility] Comment on above: Performed By: #### C D:[id number] #### [address] [address] Neutro Auto 54.8 % Normal 47.2-70.8 [facility] Comment on above: Performed By: #### C D:[id number] #### [address] [address] .eGFRon 12-31-2018 eGFR Non-AA >60 Normal >=60 [facility] Comment on above: Result Comment: Resu [...] for medication dosing. Performed By: #### C D:[id number] #### [address] [address] eGFR AA >60 Normal >=60 [facility] Comment on above: Result Comment: Resu lt = 0-14.9 mL/min/1.73 m2 Kidney failure or Dialysis Result = 15-29 mL/min/1.73 m2 Severe decrease in GFR Result = 30-59 mL/min/1.73 m2 Moderate decrease in GFR Result >= 60 mL/min/1.73 m2 Normal or increased GFR Performed By: #### C D:[id number] #### [address] [address] Basic Metabolic Profileon Anion gap [Moles/Vol] 12 mmol/L Normal 7-17 [facility] Comment on above: Performed By: #### C BC #### [address] [address] Calcium [Mass/Vol] 8.9 mg/dL Normal 8.5-10.3 [facility] Comment on above: Performed By: #### C BC #### [address] [address] Chloride [Moles/Vol] 107 mmol/L Normal 98-110 [facility] Comment on above: Performed By: #### C BC #### [address] [address] CO2 [Moles/Vol] 21 mmol/L Low 22-32 [facility] Comment on above: Performed By: #### C BC #### [address] [address] Creatinine [Mass/Vol] 0.74 mg/dL Normal 0.44-1.03 [facility] Comment on above: Performed By: #### C BC #### [address] [address] Glucose [Mass/Vol] 243 mg/dL High 74-118 [facility] Comment on above: Performed By: #### C BC #### [address] [address] Potassium [Moles/Vol] 4.0 mmol/L Normal 3.4-4.8 [facility] Comment on above: Performed By: #### C BC #### [address] [address] Sodium [Moles/Vol] 136 mmol/L Normal 133-142 [facility] Comment on above: Performed By: #### C BC #### [address] [address] Urea nitrogen [Mass/Vol] 21 mg/dL Normal 8-26 [facility] Comment on above: Performed By: #### C BC #### [address] [address] Urea nitrogen/Creatinine [Ma ss ratio] 28.4 mg/mg High 10.0-20.0 [facility] Comment on above: Performed By: #### C BC #### [address] [address] Hgb & Hcton 12-31-2018 Hematocrit (Bld) [Volume fraction] 32.0 % Low 36.0-46.0 [facility] Comment on above: Performed By: #### C BC #### [address] [address] Hemoglobin (Bld) [Mass/Vol] 10.7 g/dL Low 12.0-16. 0 [facility] Comment on above: Performed By: #### C BC #### [address] [address] Inpatient Clinical Summaryon 12-31-2018 Inpatient Clinical Summary [address] [address] Clinical Summary Person Information Name: Mari Jamison Age: 68 Years : 1950 Sex: Female PCP: Suzie Mota CNP Marital Status: PCP: [phone] Race: White Ethnicity: Not or Language: New [place]alander Visit Id: Visit Reason: Speciality: Acuity: Enc Type: Observation Med Service: Surgery Arrival: 12/30/2018 06:28:09 Discharge: Dispo Type: Address: [facility] [facility] [address] Diagnosis: 1:S/P total knee replacement; 2:Arthritis of [...] tolerable. Discharge Patient Education Review and attach [facility] Hip/Knee Inpatient Discharge Special Instructions If [...] Have Not Changed Printed Prescriptions hydrocodone-acetam inophen ([place] 5 mg-325 mg oral tablet) 1 Tabs [...] PATIENT?S CURRENT MEDICATIONS Printed Prescriptions hydrocodone-acetam inophen ([place] 5 mg-325 mg oral tablet) 1 Tabs [...] up: With: Address: When: Juan Casey [address] [place] [address] [phone] Business (1) Within 1 to 2 weeks Comments: 2 weeks With: Address: When: Suzie Mota [address] [place] [address] [phone] Business (1) Normal [facility] POC Glucose Randomon 019 Glucose [Mass/Vol] 270 mg/dL High 78-110 [facility] Comment on above: Performed By: #### C D:[id number] #### [address] [address] Glucose [Mass/Vol] 149 mg/dL High 78-110 [facility] Comment on above: Performed By: #### C D:[id number] #### [address] [address] Glucose [Mass/Vol] 174 mg/dL High 78-110 [facility] Comment on above: Performed By: #### C D:[id number] #### [address] [address] Glucose [Mass/Vol] 244 mg/dL High 78-110 [facility] Comment on above: Performed By: #### C BC #### [address] [address] Glucose [Mass/Vol] 303 mg/dL High 78-110 [facility] Comment on above: Performed By: #### C BC #### [address] [address] Progress Note - [employer] Progress Note - [...] femoral vein. Results called to ELROY Snider. Concrete Analyst: Maribel Collins, RVT Radiologist Report Signature Line Transcribed by: [...] Collins 12/31/2018 10:57 EDT Electronically signed by Bishop MCCORMICKTomas Ramon 12/31/18 13:28 EDT Normal [facility] Extremity Venous Duplex L trevon Stone 12-31-2018 VL Extremity Venous Duplex Lower Left Preliminary Technologist Report Left lower extremity: Appeared to be no evidence of acute or chronic DVT in the visualized veins. Normal comparative study of the right common femoral vein. Results called to ELROY Snider. Concrete Analyst: Maribel Collins RVT Radiologist Report Left lower [...] Electronically Signed in Other Vendor System) Normal [facility] Consultation Note - Generico n 12-30-2018 Consultation Note - Generic Chief Compla int LEFT KNEE PAIN/ARTHRITIS-KAMINI EDULED FOR TOTAL LEFT KNEE Reason for Consultation diabetes management History of Present Illness PCP: Suzie mota, ANNY- [facility] orthopedist: Dr. Juan Casey urologist: Dr. patsy Lane spine surgeon: Dr. Krishan [place]- [place], [place] The patient is a 68-year-old female with [...] 7.7 on pre op labs December 2018. [place] reports that she has yearly diabetic eye [...] She does follow with a urologist Dr. Patsy Lane. Denies dysuria. She states that her [...] replacement - per ortho recommendations - on [place] prn pain and IV dilaudid prn breakthrough pain - Xarelto prn DVT prophylaxis. 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 Has rxs for Xarelto and [place] to be continued on discharge - plans [...] Limited # of times, Dispense From Location: Rboccql-LYC-8M glucose, 12.5 g, IV Push, Injection, As Indicated for 20 doses, PRN other (see comment), First Dose: 12/30/18 15:58:00 EDT, Stop Date: Limited # of times, Dispense From Location: Kdcfwxq-LUF-7Z insulin aspart, 4, Subcutaneous, Injection, Once, First [...] Dose: 12/31/18 9:00:00 EDT, Dispense From Location: Necomrr-PDG-7E meclizine, 12.5 mg, Oral, Tab, Daily, PRN dizziness, First Dose: 12/30/18 15:56:00 EDT, Dispense From Location: Qjadojc-ZTI-8W omeprazole, 20 mg, Oral, Cap-DR, qAM, First Dose: 12/31/18 7:00:00 EDT, Dispense From Location: [address] ADA Diet Blood Glucose Monitoring POC Blood Glucose Monitoring POC Blood Glucose Monitoring POC Blood Glucose Monitoring POC Insulin Safety [place] Insulin Safety [place] Notify Provider Notify Provider Notify Provider Notify [...] 2 mL, IV Push, q6hr, PRN Prescriptions [place] 5 mg-325 mg oral tablet, 1 tabs, [...] (12/08/18) Methicillin Resistant Staph aurus(MRSA): Negative (12/30/18) [place] Absolute: 0.7 (12/08/18) [place] Auto: 10.3 (12/08/18) Neutro Absolute: 3.4 (12/08/18) Neutro Auto: 53.2 (12/08/18) POC Gluc Random: 374 mg/dL (12/30/18) RBC: 4.56 (12/08/18) RDW: 13.9 (12/08/18) Sed Rate: 13 (12/08/18) Total Protein: 7.6 (12/08/18) UA Mucus: Present (12/08/18) UA RBC Quant: 0 (12/08/18) UA Squepi Cells Quant: 1 (12/08/18) UA WBC Quant: 1 (12/08/18) Diagnostic Results ECG 12/08/18 with evidence of prior inferior [place] Electronically signed by DoedMarcia hunt DO 12/30/18 [...] LR 80/hr. Electronically signed by DoedMarcia hunt DO 12/30/18 23:[address] [facility] MRSA, PCRon [id number] INR Coag (Bld) [Relative time] Negative Normal [facility] Comment on above: Result Comment: The [employer] Xpert MRSA Assay is a qualitative in [...] the clinician. Performed By: #### C #### [place] [address] Operative Reporton 9 Operative Report Indication for Surgery Degenerative arthritis left knee Preoperative Diagnosis Degenerative arthritis left knee Postoperative Diagnosis Same Operation Left total knee replacement Parveen persona knee Persona CR 7 femoral component Persona stemmed E plateau 10 mm CR vitamin E poly- 32 mm vitamin E patellar dome Surgeon(s) Dr. Percy Casey Manager Of Security Ce Jodi ANDERSON Anesthesia Spinal Estimated Blood [...] go with a 32 mm patella dome. [place] holes were placed. The knee was then [...] Juan Casey MD 12/30/18 11:[address] [facility] POC Glucose Randomon 019 Glucose [Mass/Vol] 374 mg/dL High 78-110 [facility] Comment on above: Performed By: #### C BC #### [facility] [address] [place] [address] Glucose [Mass/Vol] 334 mg/dL High 78-110 [facility] Comment on above: Performed By: #### C BC #### [address] [address] Glucose [Mass/Vol] 141 mg/dL High 78-110 [facility] Comment on above: Performed By: #### C BC #### [address] [address] Glucose [Mass/Vol] 179 mg/dL High 78-110 [facility] Comment on above: Performed By: #### C [id number] #### [address] [address] C Urineon 12-10-2018 C Urine Final 20-30,000 cfu/ml Mixed gram positive ananth isolated. This urine contains 3 or more organisms which is inconsistent with clean catch collection. Consider the possibility of contamination during collection. No identification or susceptibility performed as results would be misleading Normal [facility] Comment on above: Performed By: #### U RC #### [address] [address] .UA Microscp Aon 12-08-2018 UA Mucus Present Abnormal Absent [facility] Comment on above: Performed By: #### C [id number] #### [address] [address] UA RBC Quant 0 /HPF Normal 0-5 [facility] Comment on above: Performed By: #### C [id number] #### [address] [address] UA Squepi Cells Quant 1 /HPF Normal 0-29 [facility] Comment on above: Performed By: #### C [id number] #### [address] [address] UA WBC Quant 1 /HPF Normal 0-5 [facility] Comment on above: Performed By: #### C [id number] #### [address] [address] .eGFRon 12-08-2018 eGFR Non-AA >60 Normal >=60 [facility] Comment on above: Result Comment: Resu [...] dosing. Performed By: #### E GFR #### [place] [address] eGFR AA >60 Normal >=60 [facility] Comment on above: Result Comment: Resu lt = 0-14.9 mL/min/1.73 m2 Kidney failure or Dialysis Result = 15-29 mL/min/1.73 m2 Severe decrease in GFR Result = 30-59 mL/min/1.73 m2 Moderate decrease in GFR Result >= 60 mL/min/1.73 m2 Normal or increased GFR Performed By: #### E GFR #### [place] [id number] CBC w/ Diffon 12-08-2018 Erythrocyte distribution wid th (RBC) [Ratio] 13.9 % Normal 11.6-14.8 [facility] Comment on above: Performed By: #### C BC #### [address] [address] Hematocrit (Bld) [Volume fraction] 39.7 % Normal 36.0-46.0 [facility] Comment on above: Performed By: #### C BC #### [address] [address] Hemoglobin (Bld) [Mass/Vol] 12.9 g/dL Normal 12.0-16. 0 [facility] Comment on above: Performed By: #### C BC #### [address] [address] MCH (RBC) [Entitic mass] 28.3 pg Normal 27.0-35.0 [facility] Comment on above: Performed By: #### C BC #### [address] [address] MCHC (RBC) [Mass/Vol] 32.5 % Normal 31.0-37.0 [facility] Comment on above: Performed By: #### C BC #### [address] [address] MCV (RBC) [Entitic vol] 87.1 fL Normal 80.0-100.0 [facility] Comment on above: Performed By: #### C BC #### [address] [address] Platelet mean volume (Bld) [Entitic vol] 8.2 fL Normal 6.7-10.6 [facility] Comment on above: Performed By: #### C BC #### [address] [address] Platelets (Bld) [#/Vol] 218 x10*3/mcL Normal 150-350 [facility] Comment on above: Performed By: #### C BC #### [address] [address] RBC (Bld) [#/Vol] 4.56 x10*6/mcL Normal 3.80-5.20 [facility] Comment on above: Performed By: #### C BC #### [address] [address] WBC (Bld) [#/Vol] 6.5 x10*3/mcL Normal 4.5-11.0 [facility] Comment on above: Performed By: #### C BC #### [address] [address] CMPon 12-08-2018 Albumin [Mass/Vol] 4.0 g/dL Normal 3.2-4.9 [facility] Comment on above: Result Comment: [facility] Laboratory updated the methodology used for albumin testing on 05/13/18. Albumin measurement was performed using a bromcresol purple dye-binding assay. Performed By: #### C OMP #### [address] [address] Albumin/Globulin [Mass ratio] 1.1 {ratio} Normal 1.1-[address] [facility] Comment on above: Performed By: #### C OMP #### [address] [address] Alk Phos 58 IU/L Normal 32-91 [facility] Comment on above: Performed By: #### C OMP #### [address] [address] ALT [Catalytic activity/Vol] 18 U/L Normal 14-54 [facility] Comment on above: Performed By: #### C OMP #### [address] [address] Anion gap [Moles/Vol] 15 mmol/L Normal 7-17 [facility] Comment on above: Performed By: #### C OMP #### [address] [address] AST [Catalytic activity/Vol] 20 U/L Normal 15-41 [facility] Comment on above: Performed By: #### C OMP #### [address] [address] Bili Total 0.6 mg/dL Normal 0.3-1.2 [facility] Comment on above: Performed By: #### C OMP #### [address] [address] Calcium [Mass/Vol] 9.2 mg/dL Normal 8.5-10.3 [facility] Comment on above: Performed By: #### C OMP #### [address] [place] [address] Chloride [Moles/Vol] 100 mmol/L Normal 98-110 [facility] Comment on above: Performed By: #### C OMP #### [address] [address] CO2 [Moles/Vol] 25 mmol/L Normal 22-32 [facility] Comment on above: Performed By: #### C OMP #### [address] [address] Creatinine [Mass/Vol] 0.63 mg/dL Normal 0.44-1.03 [facility] Comment on above: Performed By: #### C OMP #### [address] [address] Glucose [Mass/Vol] 156 mg/dL High 74-118 [facility] Comment on above: Performed By: #### C OMP #### [address] [address] Potassium [Moles/Vol] 4.0 mmol/L Normal 3.4-4.8 [facility] Comment on above: Performed By: #### C OMP #### [address] [address] Protein [Mass/Vol] 7.6 g/dL Normal 6.5-8.1 [facility] Comment on above: Performed By: #### C OMP #### [address] [address] Sodium [Moles/Vol] 136 mmol/L Normal 133-142 [facility] Comment on above: Performed By: #### C OMP #### [address] [address] Urea nitrogen [Mass/Vol] 16 mg/dL Normal 8-26 [facility] Comment on above: Performed By: #### C OMP #### [address] [address] Urea nitrogen/Creatinine [Ma ss ratio] 25.4 mg/mg High 10.0-20.0 [facility] Comment on above: Performed By: #### C OMP #### [address] [address] Diff Autoon 12-08-2018 Baso Absolute 0.0 x10*3/mcL Normal 0.0-0.2 [facility] Comment on above: Performed By: #### . Automated Diff #### [address] [address] Basophils/100 WBC (Bld) 0.8 % Normal 0.0-1.5 [facility] Comment on above: Performed By: #### . Automated Diff #### [address] [address] Eos Absolute 0.2 x10*3/mcL Normal 0.0-0.4 [facility] Comment on above: Performed By: #### . Automated Diff #### [address] [address] Eosinophils/100 WBC (Bld) 2.8 % Normal 0.0-5.4 [facility] Comment on above: Performed By: #### . Automated Diff #### [address] [address] Lymphocytes (Bld) [#/Vol] 2.1 x10*3/mcL Normal 1.0-4.8 [facility] Comment on above: Performed By: #### . Automated Diff #### [address] [address] Lymphocytes/100 WBC (Bld) 32.9 % Normal 27.2-40.8 [facility] Comment on above: Performed By: #### . Automated Diff #### [address] [address] [place] Absolute 0.7 x10*3/mcL Normal 0.1-1.1 [facility] Comment on above: Performed By: #### . Automated Diff #### [address] [address] Monocytes/100 WBC (Bld) 10.3 % Normal 3.7-11.9 [facility] Comment on above: Performed By: #### . Automated Diff #### [address] [address] Neutro Absolute 3.4 x10*3/mcL Normal 1.8-7.7 [facility] Comment on above: Performed By: #### . Automated Diff #### [address] [address] Neutro Auto 53.2 % Normal 47.2-70.8 [facility] Comment on above: Performed By: #### . Automated Diff #### [address] [address] ESRon 12-08-2018 ESR (Bld) [Velocity] 13 mm/h Normal 0-30 [facility] Comment on above: Performed By: #### E SR #### [address] [address] Hgb A1con 12-08-2018 HbA1c (Bld) [Mass fraction] 7.7 % A1c High 4.0-6.0 [facility] Comment on above: Performed By: #### H BA1C #### [address] [address] HbA1c (Bld) [Mass fraction] 174 mg/dL High 74-118 [facility] Comment on above: Result Comment: Math ematical Calc approx. The mean gluc equivalency of A1c Performed By: #### H BA1C #### [address] [address] UA Routine without Cultureon 12-08-2018 Color (U) Yellow Normal [facility] Comment on above: Performed By: #### C [id number] #### [address] [address] Glucose (U) [Mass/Vol] Negative Normal Negative [facility] Comment on above: Performed By: #### C [id number] #### [address] [address] Ketones Ql (U) Negative Normal Negative [facility] Comment on above: Performed By: #### C [id number] #### [address] [place] [address] UA Blood Small Abnormal Negative [facility] Comment on above: Performed By: #### C [id number] #### [address] [place] [address] [address] Clear Normal [facility] Comment on above: Performed By: #### C [id number] #### [address] [place] [address] UA Leukocyte Esterase Trace Abnormal Negative [facility] Comment on above: Performed By: #### C [id number] #### [address] [place] [address] UA Nitrite Negative Normal Negative [facility] Comment on above: Performed By: #### C [id number] #### [address] [place] [address] UA pH 5.0 Normal 4.5 - 7.8 [facility] Comment on above: Performed By: #### C [id number] #### [address] [address] UA Protein Negative Normal Negative [facility] Comment on above: Performed By: #### C [id number] #### [address] [place] [address] UA Spec Grav 1.018 Normal 1.003-1.[address] [facility] Comment on above: Performed By: #### C [id number] #### [address] [place] [address] UA Urobilinogen 0.2 mg/dL Normal 0.2 - 1.0 [facility] Comment on above: Performed By: #### C [id number] #### [address] [place] [address] Urobilinogen Qn (U) Negative Normal Negative [facility] Comment on above: Performed By: #### C [id number] #### [facility] [address] [place] [address] Vital Signs Date Time Vital Sign Value Performing Clinician Facility 12-08-2023 09:58-0500 Body height 162.6 cm Narinder Palomo MD Work Phone: [facility] 12-08-2023 09:58-0500 Body mass index (BMI) [Ratio] 33.99 kg/m2 Narinder Palomo MD Work Phone: [facility] 12-08-2023 09:58-0500 Body weight 89.81 kg Narinder Palomo MD Work Phone: [facility] 12-08-2023 09:58-0500 Diastolic blood pressure 98 mm[Hg] Narinder Palomo MD Work Phone: [facility] 12-08-2023 09:58-0500 Heart rate 95 /min Narinder Palomo MD Work Phone: [facility] 12-08-2023 09:58-0500 SaO2% (BldA) [Mass fraction] 96 % Narinder Palomo MD Work Phone: [facility] 12-08-2023 09:58-0500 Systolic blood pressure 158 mm[Hg] Narinder Palomo MD Work Phone: [facility] 12-02-2023 10:52-0500 Body height 162.6 cm Columba Gonzalez MD Work Phone: [facility] 12-02-2023 10:52-0500 Body mass index (BMI) [Ratio] 34.33 kg/m2 Columba Gonzalez MD Work Phone: [facility] 12-02-2023 10:52-0500 Body weight 90.72 kg Columba Gonzalez MD Work Phone: [facility] 12-02-2023 10:52-0500 Diastolic blood pressure 92 mm[Hg] Columba Gonzalez MD Work Phone: [facility] 12-02-2023 10:52-0500 Heart rate 95 /min Columba Gonzalez MD Work Phone: [employer] 12-02-2023 10:52-0500 SaO2% (BldA) [Mass fraction] 96 % Columba Gonzalez MD Work Phone: [employer] 12-02-2023 10:52-0500 Systolic blood pressure 160 mm[Hg] Columba Gonzalez MD Work Phone: [employer] 05-29-2022 14:30-0400 Body height 162.56 cm Krishan Madrid Other [employer] Other 05-29-2022 14:30-0400 Body mass index (BMI) [Ratio] 35.36 kg/m2 Krishan Madrid Other [employer] Other 05-29-2022 14:30-0400 Body weight 93.44 kg Krishan Madrid Other [employer] Other 04-03-2021 10:30-0400 Diastolic blood pressure 66 mm[Hg] Jairo Fisher MD Work Phone: [employer] Work Phone: 04-03-2021 10:30-0400 Heart rate 75 /min Jairo Fisher MD Work Phone: [employer] Work Phone: 04-03-2021 10:30-0400 Respiratory rate 18 /min Jairo Fisher MD Work Phone: [employer] Work Phone: 04-03-2021 10:30-0400 SaO2% (BldA) [Mass fraction] 94 % Jairo Fisher MD Work Phone: [employer] Work Phone: 04-03-2021 10:30-0400 Systolic blood pressure 118 mm[Hg] Jairo Fisher MD Work Phone: [employer] Work Phone: 04-03-2021 10:09-0400 Body temperature 97.39 [degF] Jairo Fisher MD Work Phone: [employer] Work Phone: 04-03-2021 08:45-0400 Body mass index (BMI) [Ratio] 36.05 kg/m2 Jairo Fisher MD Work Phone: [employer] Work Phone: 04-03-2021 08:45-0400 Body weight 95.25 kg Jairo Fisher MD Work Phone: [employer] Work Phone: 03-13-2021 14:25-0400 Body height 162.6 cm Jairo Fisher MD Work Phone: [employer] Work Phone: Encounters Encounter Date Encounter Type Care Provider Facility Start: 04-04-2024 End: 04-05-2024 [facility] Start: 03-02-2024 End: 03-03-2024 Emergency department patient visit [facility] Start: 03-01-2024 End: 03-02-2024 Emergency department patient visit BRISA Dontae MUKHERJEE [facility] Start: 01-18-2024 End: 01-18-2024 Emergency department patient visit GLORIA Santana TAYLOR [facility] Start: 12-12-2023 ambulatory Facility:[facility] Start: 12-10-2023 Telephone encounter Narinder villeda MD Work Phone: [facility] Comment on above: Sleep Lab (PSG) Start: 12-08-2023 End: 12-08-2023 ambulatory NARINDER PALOMO [facility] Start: 12-08-2023 End: 12-08-2023 Office outpatient new 45 minutes Narinder Palomo MD Work Phone: [facility] Comment on above: Pulmonary nodule (Pr imary Dx); HERMILA (obstructive sleep apnea); Obesity (BMI 30-39.9) Start: 12-02-2023 End: 12-02-2023 Office outpatient visit 15 minutes David Ybarra MD Work Phone: [facility] Comment on above: Other chest pain (Pr imary Dx); Essential hypertension Start: 12-02-2023 End: 12-02-2023 ambulatory [facility] Start: 11-18-2023 ambulatory [facility] Start: 10-26-2023 End: 10-27-2023 Emergency department patient visit JENI Barbosa [facility] Start: 10-21-2023 End: 10-21-2023 ambulatory KAYLA H DICKSON Not Available Start: 09-28-2023 End: 09-29-2023 Emergency department patient visit BRUCE Mcgarry [facility] Start: 09-28-2023 End: 09-28-2023 Emergency department patient visit [facility] Start: 09-24-2023 End: 09-25-2023 Emergency department patient visit HERMILO Dimas [facility] Start: 05-15-2023 End: 05-16-2023 ambulatory HANNAH Ponce [facility] Start: 01-05-2023 End: 01-05-[address] LARISA WORRELL . Facility: Start: 05-29-2022 End: 05-29-2022 ambulatory Krishan Madrid Other [facility] [employer] Other Start: 05-29-2022 Office outpatient vi sit 15 minutes Krishan Madrid [facility] Start: 04-18-2022 End: 04-18-2022 Subsequent hospital visit by physician Gloria Taylor DO Work Phone: [facility] Start: 04-10-2022 End: 04-11-[address] MOSS MISSergio Facility:[facility] Start: 03-26-[address] MOSS MISC Facility :[facility] Start: 02-11-2022 End: 02-12-[address] MOSS MISC Facility:[facility] Start: 04-03-2021 End: 04-03-2021 Subsequent hospital visit by physician Jairo Fisher MD Work Phone: [facility] Start: 09-07-2020 End: 09-07-2020 Patient encounter procedure STAFF, [facility] Start: 12-06-2019 End: 12-06-2019 Subsequent hospital visit by physician Jeni Antonio [facility] Comment on above: Encounter for well w domonique exam with routine gynecological exam Start: 07-14-2019 End: 07-15-2019 Evaluation and management of inpatient JUANJOSE J JIMENES CARMELA Facility:[facility] Start: 07-02-2019 End: 07-03-2019 [facility] Start: 12-30-2018 End: 12-31-2018 Patient encounter procedure [facility] Facility:[facility] Start: 12-08-2018 End: 12-09-2018 Patient encounter procedure JUAN COOKIE CARMELA Facility:[facility] Start: 06-15-2018 Patient encounter status Abdulaziz Gonzalez MD Work Phone: [facility] Start: 12-22-2017 End: 12-23-2017 Ambulatory DEFAULT PHYSICIAN Facility:[facility] Start: 07-19-2013 End: 05-04-2020 Patient encounter status Jairo Fisher MD Work Phone: [facility] Procedures Date Procedure Procedure Detail Performing Clinician [...] DTaP,Tdap and Td Vaccines (2 - Tdap) [facility] Start: 06-14-2026 DTaP/Tdap/Td vaccine (2 - Tdap) DTaP/Tdap/Td vaccine (2 - Tdap) [facility] Start: 04-03-2026 Screening for malignant neoplasm of colon [facility] Start: 12-07-2024 Adult BMI Screening Adult BMI Screening [facility] Start: 12-07-2024 Tobacco Screening Tobacco Screening [facility] Start: 12-02-2024 Adult BMI Screening Adult BMI Screening [facility] Start: 12-02-2024 Tobacco Screening Tobacco Screening [facility] Start: 01-14-2024 Adult BMI Follow Up Plan Adult BMI Follow Up Plan [facility] Start: 12-08-2023 End: 12-08-2023 Patient encounter procedure 12/08/2023 10:00 AM EST Office Visit [facility] [address] [place] [address] Narinder Palomo MD [address] [place] [address] [facility] Start: 06-06-2023 COVID-19 Vaccine ( season) COVID-19 Vaccine ( season) [facility] Start: 06-22-2022 Depression Screening Depression Screening [facility] Start: 06-06-2022 Influenza vaccination Flu vaccine (#1) [facility] Start: 04-04-2022 Depression Screen Depression Screen [facility] Start: 03-15-2022 Screening for malignant neoplasm of breast Breast cancer screen SARAY [facility] [employer] Start: 06-06-2021 Influenza vaccination Flu vaccine (Season Ended) [email or web address] Phone: Start: 04-14-2021 Diabetic retinal exam Diabetic retinal exam [email or web address] Phone: Comment on above: Postponed from 01/11/1960 (Not Indicated ) Start: 04-10-2021 End: 04-10-2021 Patient encounter procedure 04/10/2021 Office Visit General Surgery Jairo Fisher MD [address] [place] [address] [facility] Start: 04-04-2021 End: 04-04-2021 Patient encounter procedure 04/04/2021 Office Visit Obstetrics and Gynecology Inderjit Garcia MD [address] [place] [address] [facility] Start: 04-04-2021 Annual Wellness Visit (AWV) Annual Wellness Visit (AWV) [email or web address] Phone: Comment on above: Postponed from 03/28/2019 (Not Indicated ) Start: 04-04-2021 Creatinine measurement Creatinine monitoring [email or web address] Phone: Comment on above: Postponed from 11/19/2018 (Not Indicated ) Start: 04-04-2021 Diabetic foot examination Diabetic foot exam [email or web address] Phone: Comment on above: Postponed from 01/11/1960 (Not Indicated ) Start: 04-04-2021 Diabetic microalbuminuria test Diabetic microalbuminuria test [email or web address] Phone: Comment on above: Postponed from 01/11/1968 (Not Indicated ) Start: 04-04-2021 Hemoglobin A1c measurement A1C test (Diabetic or Prediabetic) [email or web address] Phone: Comment on above: Postponed from 01/11/1960 (Not Indicated ) Start: 04-04-2021 Lipid panel Lipid screen [employer] Phone: Comment on above: Postponed from 01/11/1960 (Not Indicated ) Start: 04-04-2021 Potassium monitoring Potassium monitoring [facility] [employer] Phone: Comment on above: Postponed from 11/19/2018 (Not Indicated ) Start: 03-15-2020 Colon cancer screen colonoscopy Colon cancer screen colonoscopy [place], [place] Start: 03-28-2019 Annual Wellness Visit (AWV) Annual Wellness Visit (AWV) [place], [place] Start: 11-19-2018 Creatinine monitoring Creatinine monitoring [place], [place] Start: 11-19-2018 Potassium monitoring Potassium monitoring [place], [place] Start: 10-11-2017 Breast cancer screen Breast cancer screen [place], [place] Start: 07-14-2017 Pneumococcal 65+ years Vaccine (2 of 2 - PPSV23) Pneumococcal 65+ years Vaccine (2 of 2 - PPSV23) [place], [place] Start: 09-08-2015 Shingles Vaccine (2 of 3) Shingles Vaccine (2 of 3) [place], [place] Start: 2015 DEXA (modify frequency per FRAX score) DEXA (modify frequency per FRAX score) [place], [place] Start: 2015 Fall Risk Screening Fall Risk Screening [facility] Start: 2005 Screening for osteoporosis DEXA (modify frequency per FRAX score) [facility] [employer] Start: 1995 Screening for malignant neoplasm of colon [facility] [employer] Start: 1969 Hepatitis B vaccine (1 of 3 - Risk 3-dose series) Hepatitis B vaccine (1 of 3 - Risk 3-dose series) [place] Start: 01-11-1968 Diabetic foot examination Diabetic Foot Exam [facility] Start: 01-11-1968 Diabetic microalbuminuria test Diabetic microalbuminuria test [place], [place] Start: 01-11-1968 Diabetic retinal exam Diabetic retinal exam [facility] [employer] Start: 01-11-1968 Hepatitis C screening Hepatitis C screen [facility] Start: 01-11-1968 Urine screening for protein Diabetic microalbuminuria test [facility] Start: 1962 COVID-19 Vaccine (1) COVID-19 Vaccine (1) [email or web address] Phone: Start: 01-11-1960 [object Object] Diabetic foot exam [place], [place] Start: 01-11-1960 A1C test (Diabetic or Prediabetic) A1C test (Diabetic or Prediabetic) [place] Start: 01-11-1960 Diabetic foot examination Diabetic foot exam [facility] [employer] [facility] Start: 01-11-1960 Diabetic retinal exam Diabetic retinal exam [place], [place] Start: 01-11-1960 Hemoglobin A1c measurement A1C test (Diabetic or Prediabetic) [facility] Start: 01-11-1960 Lipid panel Lipids [facility] Start: 01-11-1960 Lipid screen Lipid screen [place], [place] Start: 1955 COVID-19 Vaccine (1) COVID-19 Vaccine (1) [facility] Start: 1950 Annual Wellness Visit (AWV) Annual Wellness Visit (AWV) [facility] [employer] Start: 1950 Glaucoma screening [facility] Start: 1950 Hepatitis C screen Hepatitis C screen [place], [place] Start: 1950 Hepatitis C screening Hepatitis C screen [facility] Phone: Start: 1950 Medicare Annual Wellness Visit Medicare Annual Wellness Visit [facility] End: 12-06-2019 Cytopathology procedure, preparation of smear, genital source PAP SMEAR Lab Routine Encounter for well woman exam with routine gynecological exam 1 Occurrences starting 12/06/2019 until 12/06/2019 [facility] [employer] [place] Comment on above: 1 Occurrences starting 12/06/2019 until 12/06/2019 End: 04-03-2021 Glucose [Mass/volume] in Serum or Plasma POCT glucose Point of Care Testing STAT One Time for 1 Occurrences starting 04/03/2021 until 04/03/2021 [email or web address] Phone: Comment on above: One Time for 1 Occurrences starting 03/07 until 04/03/2021 H. PYLORI DETECTION [employer] Phone: Comment on above: Release Upon Ordering for 1 Occurrences starting 04/03/2021 End: 04-03-2021 Protime-INR Protime-INR Lab STAT One Time for 1 Occurrences starting 04/03/2021 until 04/03/2021 [email or web address] Phone: Comment on above: One Time for 1 Occurrences starting 03/07 until 04/03/2021 End: 12-07-2024 PSG Diagnostic [facility] Routine HERMILA (obstructive sleep apnea) 1 Occurrences starting 12/08/2023 until 12/07/2024 [facility] Work Phone: Comment on above: 1 Occurrences starting 12/08/2023 until 12/07/2024 Surgical Pathology Surgical Path ology Lab Routine Release Upon Ordering for 1 Occurrences starting 04/03/2021 [email or web address] Phone: Comment on above: Release Upon Ordering for 1 Occurrences starting 04/03/2021 Immunizations Immunization Date Immunization Notes Care Provider Fa nathaniel 07-14-2016 pneumococcal conjuga te vaccine, 13 valent [place] Antonio [facility] 06-14-2016 diphtheria, tetanus toxoids and acellular pertussis vaccine [place], [place] 07-14-2015 zoster vaccine, live [place], [place] Payers Date Payer Category Payer Medicare [id number] 2019 Medicare MEDICARE MEDICAR E PART A AND B xxxxxxxxxxx 2019-Present [phone] [place] [address] xxxxxxxxxxx [id number] 2019 Medicare 2018 Unknown 2017 Unknown [id number] 1990 Medicare [id number] 1959 Medicare [id number] 1950 Unknown [id number] 2.16.840.1.903370.3.579.2.196 1950 Unknown [id number] 2.16.840.1.001440.3.579.2.196 1950 Unknown [id number] 2.16.840.1.961001.3.579.2.196 1950 Unknown [id number] 2.16.840.1.224852.3.579.2.196 1950 Unknown [id number] 2.16.840.1.968175.3.579.2.593 1950 Unknown [id number] 2.16.840.1.556321.3.579.2.593 1950 Unknown [id number] 2.16.840.1.357992.3.579.2.593 1950 Unknown [id number] 2.16.840.1.333100.3.579.2.593 1950 Unknown [id number] 2.16.840.1.589124.3.579.2.173 1950 Unknown [id number] 2.16.840.1.828482.3.579.2.125 9 1950 Unknown [id number] 2.16.840.1.676004.3.579.2.128 6 1950 Unknown [id number] 2.16.840.1.198910.3.579.2.128 6 1950 Unknown [id number] 2.16.840.1.434030.3.579.2.128 6 1950 Unknown [id number] 2.16.840.1.252596.3.579.2.128 6 1950 Unknown [id number] 2.16.840.1.297267.3.579.2.128 6 1950 Unknown [id number] 2.16.840.1.588448.3.579.2.128 6 1950 Unknown [id number] 2.16.840.1.040133.3.579.2.128 6 1950 Unknown [id number] 2.16.840.1.426938.3.579.2.128 6 1950 Unknown [id number] 2.16.840.1.542889.3.579.2.128 6 1950 Unknown [id number] 2.16.840.1.152259.3.579.2.128 6 1950 Unknown [id number] 2.16.840.1.740723.3.579.2.128 6 1950 Unknown [id number] 2.16.840.1.730865.3.579.2.128 6 1950 Unknown [id number] 2.16.840.1.055244.3.579.2.128 6 1950 Unknown [id number] 2.16.840.1.733396.3.579.2.128 6 1950 Unknown [id number] 2.16.840.1.499794.3.579.2.128 6 1950 Unknown [id number] 2.16.840.1.134678.3.579.2.128 6 Medicaid Self Pay [id number] Self-pay Self Pay [id number] Social History Date Type Detail Facility Start: 12-06-2019 End: 12-24-2022 Tobacco smoking status NHIS Never smoker [place], [place] Start: 12-06-2019 End: 04-18-2022 Alcohol intake Current non-drinker of alcohol (finding) [place], [place] Start: 1950 Sex Assigned At Not on file M [place], [place] Start: 1950 Sex Assigned At Female F [facility] Start: 04-03-2021 End: 12-24-2022 Tobacco use and exposure Never used [employer] Exposure to SARS-CoV -2 (event) Not sure [employer] Start: 10-28-2020 End: 12-02-2023 Sex Assigned At [facility] [employer] [facility] Start: 12-02-2023 End: 12-08-2023 Alcohol intake Ex-drinker (finding) [facility] [employer] [facility] Start: 10-28-2020 End: 12-02-2023 History of Social function [facility] Adolescent depressio n screening assessment 0 [facility] Medical Equipment Procedure Code Equipment Code Equipment Origin al Text Equipment Identifier Dates Mesh Srg Bard [id number] [id number] Sft Rpl [id number] - [id number] Start: 06-15-2018 Goals Date Patient Goal [...] notes in epic documented in this encounter [facility] 12-10-2023 Telephone encounter Note 3/4 received PSG order 3 patient will call back to schedule, sent letter with main phone number. Order Deferred PSG order and 3/4 Taleb notes in epic [facility] 12-08-2023 History of Presen t illness Narrative Images from the original note were not included. [facility] PULMONARY/SLEEP MEDICINE [address] [address] Subjective: Chief Complaint Pulmonary nodules HPI The patient is 73-year-old female who is here as a new patient. She was referred to us because of abnormal CT scan of the chest. She hadCT scan of the chest that was done in [facility] on 11/18/2023 showed multiple bilateral lung nodules, tiny, largest 4 mm. Patient denies any shortness a breath. Patient never smoked. Patient had diagnostic sleep study on 02/01/2021 The apnea-hypopnea index (AHI) is 31.9 ([facility]) / 14 ([facility]) events per hour, and the lowest saturation [...] Medical History: Diagnosis Date Deep vein thrombosis ([facility]) Diabetes mellitus type 2, controlled ([facility]) GERD (gastroesophageal reflux disease) Hyperlipidemia Hypertension Renal cyst 11/16/2019 Schizophrenia simplex ([facility]) Past Surgical History: Procedure Laterality Date BACK SURGERY 2014 fatty lipoma removed from back BREAST BIOPSY Left 2006 benign CHOLECYSTECTOMY COLONOSCOPY W/ POLYPECTOMY 2014 benign CYSTOSCOPY N/A 08/05/2023 Performed by Seb Aguirre MD at [facility] CYSTOSCOPY N/A 12/01/2018 Performed by Seb Aguirre MD at [facility] HIP SURGERY Left INCISIONAL HERNIA REPAIR 2009, 2016 INJECTION BLOCK EPIDURAL CAUDAL STEROID N/A 06/08/2021 Performed by Km Barba MD at [facility] INJECTION BLOCK EPIDURAL CAUDAL STEROID N/A 04/27/2021 Performed by Km Barba MD at [facility] INJECTION BLOCK NERVE MEDIAL BRANCH: bilat L 4/5 5/1 mbb Bilateral 01/19/2021 Performed by Km Barba MD at [facility] INJECTION BLOCK NERVE MEDIAL BRANCH: Bilat L 4/5 5/1 mbb Bilateral 12/01/2020 Performed by Km Barba MD at [facility] KNEE ARTHROSCOPY Bilateral KNEE SURGERY left total knee RADIOFREQUENCY ABLATION SPINAL: left L 4/5 5/1 Left 03/09/2021 Performed by Km Barba MD at [facility] RADIOFREQUENCY ABLATION SPINAL: right L 4/5 5/1 Right 02/23/2021 Performed by Km Barba MD at [facility] REPAIR OF RECURRENT ABDOMINAL HERNIA WITH BARD SOFT MESH, EXPLANTATION OF OLD MESH, T.A.R. PROCEDURE N/A 06/15/2018 Performed by Jose Vasquez MD at [facility] REPLACEMENT TOTAL KNEE Right VAGINAL HYSTERECTOMY [...] this note were generated using voice recognition [employer] dictation software. Although every effort was made to ensure the accuracy of this automated costumer, some errors in costumer may have occurred. documented in this encounter [facility] [employer] 12-02-2023 History of Presen t illness Narrative Mari Jamison Date of visit: 12/02/2023 Date of : 1950 Age: 73 y.o. Patient Active Problem List Diagnosis Diabetes mellitus ([facility]) Hyperlipidemia Essential hypertension Obesity, Class III, BMI 40-49.9 (morbid obesity) ([facility]) Osteoarthritis of right knee S/P right unicompartmental knee replacement Recurrent ventral hernia Pre-op testing Mixed stress and urge urinary incontinence Severe obesity (BMI 35.0-39.9) with comorbidity ([facility]) Lumbosacral spondylosis without myelopathy Renal cyst Other [...] type 2 diabetes mellitus. miscellaneous medical supply [facility] 1 tablet pseudoephedrine-guaiFENesin (MUCINEX D) 60-600 mg [...] antihypertensives this morning. Systolic blood [place] [address]76 mmHg at home. She actually physically feels well. She has been stressed out about her who has cognitive issues. No orthopnea. No PND. Past Medical History: Diagnosis Date Deep vein thrombosis ([facility]) Diabetes mellitus type 2, controlled ([facility] GERD (gastroesophageal reflux disease) Hyperlipidemia Hypertension Renal cyst 11/16/2019 Schizophrenia simplex ([facility]) No data recorded No data recorded No data recorded Past Surgical History: Procedure Laterality Date BACK SURGERY 2014 fatty lipoma removed from back BREAST BIOPSY Left 2006 benign CHOLECYSTECTOMY COLONOSCOPY W/ POLYPECTOMY 2014 benign CYSTOSCOPY N/A 08/05/2023 Performed by Seb Aguirre MD at [facility] CYSTOSCOPY N/A 12/01/2018 Performed by Seb Aguirre MD at [facility] HIP SURGERY Left INCISIONAL HERNIA REPAIR 2009, 2016 INJECTION BLOCK EPIDURAL CAUDAL STEROID N/A 06/08/2021 Performed by Km Barba MD at [facility] INJECTION BLOCK EPIDURAL CAUDAL STEROID N/A 04/27/2021 Performed by Km Barba MD at [facility] INJECTION BLOCK NERVE MEDIAL BRANCH: bilat L 4/5 5/1 mbb Bilateral 01/19/2021 Performed by Km Barba MD at [facility] INJECTION BLOCK NERVE MEDIAL BRANCH: Bilat L 4/5 5/1 mbb Bilateral 12/01/2020 Performed by Km Barba MD at [facility] KNEE ARTHROSCOPY Bilateral KNEE SURGERY left total knee RADIOFREQUENCY ABLATION SPINAL: left L 4/5 5/ Left 03/09/2021 Performed by Km Barba MD at [facility] RADIOFREQUENCY ABLATION SPINAL: right L 4/5 5/ Right 02/23/2021 Performed by Km Barba MD at [facility] REPAIR OF RECURRENT ABDOMINAL HERNIA WITH BARD SOFT MESH, EXPLANTATION OF OLD MESH, T.A.R. PROCEDURE N/A 06/15/2018 Performed by Jose Vasquez MD at [facility] REPLACEMENT TOTAL KNEE Right VAGINAL HYSTERECTOMY [...] normal EF MPI 02/2021 2. Normal coronaries [facility] 2013 3. Normal EF TTE [...] DO Referring Physician: Gloria Taylor DO [address] [facility] [facility] [place] [address] [facility] Evaluation note Encounter Date Diagnosis Assessment [...] an as-needed basis or is symptoms worsen. [facility] Other 06-29-2021 History of Present illness Narrative* Rimma oMnroe RN - 04/03/2021 10:[address] [...] a responsible adult. Yes documented in this [email or web address] Phone: evaluation note* Diagnosis GERD (gastroesophageal reflux disease)- Primary Esophageal reflux documented in this encounter [email or web address] Phone: evaluation note* Diagnosis Other chest pain- Primary Essential hypertension Unspecified essential hypertension documented in this encounter [employer] SystemEvaluation note* Diagnosis Pulmonary nodule- Primary Other diseases of lung, not elsewhere classified HERMILA (obstructive sleep apnea) Obstructive sleep apnea (adult) (pediatric) Obesity (BMI 30-39.9) documented in this encounter [employer] SystemHistory general Narrative - Reported* Type Description [...] Surgical History hysterectomy Hospitalization History See Sx [facility] Other Hospital Discharge instructions* Instructions* Rimma Monroe [...] the nearest Emergency Room. [facility] Work Phone: InstructionsNot on filedocumented in this encounter [facility] SystemInstructionsNot on filedocumented in this encounter [facility] SystemInstructionsNot on filedocumented in this encounter [facility] System Summary Purpose Family History No Family History Records FoundNo Family History Records FoundNo Family History Records FoundNo Family History Records FoundNo Family History Records FoundNo Family History Records FoundNo Family History Records FoundNo Family History Records FoundNo Family History Records Found Advance Directives No Advanced Directives Records FoundDocuments on File Type Date Recorded Patient Chart Picker Expl anation Advance Directives and Living Will Power of Information Strategist Latest Code Status on File Code Status Date Activated Date Inactivated Comments Full Code 12/21/2012 12:14 PM 12/24/2012 4:06 PM Advance Directive Response Recorded Date/ Time Advance Directives No August 11:18am Documents on File Type Date Recorded Patient Chart Picker Expl anation ACP-Advance Directive ACP-Power of Information Strategist Latest Code Status on File Code Status Date Activated Date Inactivated Comments Full Code 04/03/2021 8:29 AM Full Code 12/21/2012 12:14 PM 12/24/2012 4:06 PM Documents on File Type Date Recorded Patient Chart Picker Expl anation ACP-Advance Directive ACP-Power of Information Strategist Latest Code Status on File Code Status [...] mg, 2 tabs, Oral, q8hr, PRN Prescriptions [place] 5 mg-325 mg oral tablet, 1 tabs, Oral, q6hr, PRN Xa (more content not included)... Assessments Diagnosis Encounter for well woman exam with routine gynecological exam Chief Complaint and Reason for Visit Chief Complaint z78.0 Reason for Referral Specialty Diagnoses / Procedures Referred By Contsanto t Referred To Contact Diagnoses HERMILA (obstructive sleep apnea) Procedures PSG Diagnostic Narinder Palomo MD [address] [facility] [place] [address] Referral ID Status Reason Start Date Expiration Date V isits Requested Visits Authorized [id number] Pending Review 12/08/2023 12/07/2024 1 1 Additional Source Comments INFORMATION SOURCE (unrecogn ized section and content) DATE CREATED AUTHOR 03/27/2018 [facility] DATE CREATED AUTHOR AUTHOR'S ORGANIZ ATION 09/21/2019 [facility] DATE CREATED AUTHOR AUTHOR'S ORGANIZ ATION 01/08/2023 [facility] DATE CREATED AUTHOR AUTHOR'S ORGANIZ ATION 03/17/2023 [facility] dical Specialist DATE CREATED AUTHOR AUTHOR'S ORGANIZ ATION 05/17/2023 [facility] DATE CREATED AUTHOR AUTHOR'S ORGANIZ ATION 10/22/2023 [facility] dical Specialists [facility] DATE CREATED AUTHOR AUTHOR'S ORGANIZ ATION 12/09/2023 [facility] DATE CREATED AUTHOR AUTHOR'S ORGANIZ ATION 12/13/2023 [facility] DATE CREATED AUTHOR AUTHOR'S ORGANIZ ATION 04/05/[address] [facility] Reason for Visit (unrecogniz ed section and content) Status Reason Specialty Diagnoses / Procedures Re ferred By Contact Referred To Contact Diagnoses Symptoms of gastroesophageal reflux Constipation REFLUX SYMPTOMS, CONSTIPATION Procedures CO COLONOSCOPY FLX DX W/COLLJ SPEC WHEN PFRMD CO ESOPHAGOGASTRODUODENOSCOPY TRANSORAL DIAGNOSTIC COLONOSCOPY DIAGNOSTIC EGD ESOPHAGOGASTRODUODENOSCOPY Jairo Fisher MD [address] [place] [address] [address] [place] [id number] [facility] Reason Comments Follow-up EST PT F/U 1 YR L/S MS Reason Comments New Patient CT: 4PFT: n oneSOB: noneTobacco Use: neverStarted Tobacco: n/aHx Sleep Apnea: Yes, not currently on PAP Therapy, patient states she does not want to be on PAP therapyPS02/01/2021 Specialty Diagnoses / Procedures Referred By Tommy t Referred To Contact Pulmonary Medicine Diagnoses Pulmonary nodule Gloria Taylor, DO [address] [facility] [place] [address] [facility] Pulm Sleep Med [address] [place] [address] Referral ID Status Reason Start Date Expiration Date Visits Requested Visits Authorized [id number] Pending Review Specialty Services Required 11/10/2023 11/09/2024 [...] - Prov ider: Radha Adamson APRN - ERGONOMICS TECHNICIAN)[id number] (Stopped - Provider: Radha Adamson APRN - ERGONOMICS TECHNICIAN)[id number] (Stopped - Provider: Rimma Monroe RN) PRN [...] Care Teams (unrecognized sec tion and content) Bdr Relationship Specialty Start Date End Date Gloria Taylor DO [address] [place] [address] PCP - General Family Medicine 05/09/21 Bdr Relationship Specialty Start Date End Date Gloria Taylor DO [address] [place] [address] PCP - General Family Medicine 03/28/23 Bdr Relationship Specialty Start Date End Date Gloria Taylor DO [address] [place] [address] PCP - General Family Medicine 03/28/23 Bdr Relationship Specialty Start Date End Date Gloria Taylor DO [address] [place] [address] PCP - General Family Medicine 03/28/23 FOR [...] BE BASED ON THE PRIMARY CLINICAL RECORDS. [employer] provides no warranty or guarantee of the accuracy or completeness of information in this document.
[2024-04-09 16:37] LABS: Basophils Absolute Auto 0.1 10^3/uL (0.0-0.1); Basophils Percent Auto 0.7 % (0.2-2.0); Eosinophils Absolute Auto 0.2 10^3/uL (0.0-0.7); Eosinophils Percent Auto 2.1 % (0.9-7.0); Hematocrit 43.3 % (36.0-48.0); Immature Granulocytes Abs Auto 0.02 10^3/uL (0.00-0.03); Immature Granulocytes Pct Auto 0.3 % (0.0-0.5); Lymphocytes Absolute Auto 2.8 10^3/uL (1.2-3.8); Lymphocytes Percent Auto 36.5 % (20.5-60.0); Mean Corpuscular HGB Conc 32.3 g/dL (29.9-35.2); Mean Corpuscular Hemoglobin 28.7 pg (26.7-34.0); Mean Corpuscular Volume 88.7 fL (81.0-99.0); Mean Platelet Volume 9.8 fL (9.5-13.5); Monocytes Absolute Auto 0.8 10^3/uL (0.3-0.8); Monocytes Percent Auto 10.7 % (1.7-12.0); Neutrophils Absolute Auto 3.8 10^3/uL (1.4-6.5); Neutrophils Percent Auto 49.7 % (43.0-75.0); Platelet Count 254 10^3/uL (150-450); Red Blood Count 4.88 10^6/uL (4.20-5.40); Red Cell Distribution Width 13.3 % (11.0-15.0); White Blood Count 7.7 10^3/uL (4.0-11.0)
[2024-04-09] MEDS: 0.9 % SODIUM CHLORIDE 1,000 ML 999 ML IV (16:37)
[2024-04-09] MEDS: METOPROLOL TARTRATE 5 MG/5 ML VIAL IVP (16:38)
[2024-04-09 16:39] LABS: Bilirubin Urine NEGATIVE (NEGATIVE); Blood Urine TRACE-I (NEGATIVE); Clarity Urine CLEAR (CLEAR); Color Urine LT. YELLOW (YELLOW); Glucose Urine UA >=1000 mg/dL (NEGATIVE); Ketones Urine NEGATIVE (NEGATIVE); Leukocyte Esterase Urine NEGATIVE (NEGATIVE); Nitrite Urine NEGATIVE (NEGATIVE); Protein Urine NEGATIVE (NEG/TRACE); Specific Gravity Urine 1.015 (1.005-1.025); Urobilinogen Urine 0.2 EU/dL (0.2-1.0)
--- NOTE | 2024-04-09 16:40 | ED.GENADUL1 ---
HPI HPI - General Adult General Chief complaint: Extremity Problem, Nontraumatic Stated complaint: LOWER EXTREMILTY PAIN, BACK PAIN, HIP PAIN Time Seen by Provider: 04/09/24 15:59 Source: patient Mode of arrival: walk-in Limitations: no limitations History of Present Illness HPI narrative: Patient is a 74-year-old female well-known to this emergency department who presents to the ER for various complaints of bilateral hip, bilateral knee and low back pain. She states this has been ongoing for several weeks. She has history of arthritis. She states on arrival that she wants a CAT scan or she will leave. No falls or injuries. No peripheral paresthesias or leg swelling. At time of triage, patient was noted to have a heart rate of 150. She denies chest pain, shortness of breath, palpitations. She denies fevers, cough, congestion or recent illness. She ambulated into the emergency department. No urinary symptoms or incontinence. She denies any history of A-fib, a flutter. She does not take blood thinners. Related Data Home Medications ?Medication ?Instructions ?Recorded ?Confirmed atorvastatin 20 mg tablet 20 mg PO DAILY 10/31/23 01/18/24 carvedilol 25 mg tablet 25 mg PO BID 10/31/23 01/18/24 lisinopril 40 mg tablet 40 mg PO DAILY 10/31/23 01/18/24 metformin 500 mg tablet 500 mg PO BID 10/31/23 01/18/24 Previous Rx's ?Medication ?Instructions ?Recorded benzonatate 100 mg capsule 100 mg PO TID PRN cough #20 caps 03/04/24 doxycycline hyclate 100 mg capsule 100 mg PO BID 10 days #20 caps 03/04/24 loratadine 5 mg-pseudoephedrine ER 1 tab PO Q12H PRN nasal congestion 03/04/24 120 mg tablet,extended #20 tabs release,12hr (Claritin-D 12 Hour) methocarbamol 750 mg tablet 750 mg PO TID PRN pain #20 tabs 04/09/24 tramadol 50 mg tablet 50 mg PO Q4H PRN pain 4 days #15 04/09/24 tabs Allergies Allergy/AdvReac Type Severity Reaction Status Date / Time honey Allergy Severe Verified 03/04/24 20:18 Penicillins Allergy Severe Verified 03/04/24 20:18 Opioid HPI Opioid Management Most Recent Opioid Data: No Data to Display Review of Systems ROS Constitutional Denies: fever or chills Ears, nose, mouth, and throat Denies: throat pain or nasal congestion Cardiovascular Denies: chest pain or palpitations Respiratory Denies: shortness of breath or cough Gastrointestinal Denies: abdominal pain, nausea or vomiting Genitourinary Denies: painful urination Musculoskeletal Reports: back pain and joint pain; Denies: neck pain or extremity pain Integumentary/Breast Denies: rash Neurological Denies: headache, numbness in extremities or weakness in extremities Hematologic/Lymphatic Denies: easy bruising or easy bleeding PFSH [facility] Social History Smoking status: Never smoker Exam Narrative Exam Narrative: Gen.: Awake, alert, in no distress; Sitting in the bedside chair refusing to get onto the exam cart Head: Normocephalic, atraumatic ENT: Moist mucous membranes Respiratory: No respiratory distress, lungs clear bilaterally Cardio: Tachycardia Gastrointestinal: Abdomen is soft, nondistended and nontender to palpation Extremities: Moves extremities equally, no injuries noted, Normal range of motion of the bilateral knees, able to ambulate Psych: Normal mood and affect Neuro: No focal neuro deficit Skin: Warm, dry, intact Constitutional Vital Signs, click to edit/add: Last Vital Signs Temp 98.2 F 04/09/24 15:58 Pulse 81 04/09/24 17:40 Resp 20 04/09/24 17:40 BP 156/111 H 04/09/24 16:42 Pulse Ox 95 04/09/24 16:42 O2 Del Method Room Air 04/09/24 15:58 Course Vital Signs Vital signs: Vital Signs Temperature 98.2 F 04/09/24 15:58 Pulse Rate 142 H 04/09/24 15:58 Respiratory Rate 20 04/09/24 15:58 Blood Pressure 168/98 H 04/09/24 15:58 Pulse Oximetry 96 04/09/24 15:58 Oxygen Delivery Method Room Air 04/09/24 15:58 Temperature 98.2 F 04/09/24 15:58 Pulse Rate 81 04/09/24 17:40 Respiratory Rate 20 04/09/24 17:40 Blood Pressure 156/111 H 04/09/24 16:42 Pulse Oximetry 95 04/09/24 16:42 Oxygen Delivery Method Room Air 04/09/24 15:58 Medical Decision Making MDM Narrative Medical decision making narrative: On arrival to the ER, patient has no complaints of chest pain, shortness of breath, palpitations, cough or congestion. No vomiting or recent illness. She was noted to be tachycardic, EKG, labs and IV were established and the patient was given IV fluids and 5 mg IV Lopressor. Previous visits were reviewed showing the patient has been tachycardic in the past anywhere from 100-1 10. She is on carvedilol twice daily. Heart rate slowed, repeat EKG shows normal sinus rhythm at a rate of 82, no acute ST elevation or ectopy. This EKG was also reviewed by attending physician. CT angio of the chest is unremarkable, CT of the abdomen and pelvis as well as bilateral femur x-rays show no evidence of acute bony abnormalities although the patient is noted to have significant arthritis in her low back as well as her joints. She has a previous left hip arthroplasty. She is discharged home with a short course of analgesics and muscle relaxants to follow-up with PCP. We will avoid steroids as the patient has hyperglycemia today. She is ambulatory in no distress. Return to the ER if symptoms change or worsen I reviewed the prescriptions that were sent for the patient, she states that medications have not been working for her. She apparently has been to other providers and emergency departments for this complaint over the last several weeks. She states the medication she was prescribed did not work, she was prescribed prednisone and lidocaine patches on 04/04/2024. This is likely why her blood sugar is elevated. She was encouraged to follow-up with PCP, return to the emergency department if symptoms change or worsen. She remains ambulatory in no distress in the ER. SUPERVISED APC VISIT, PHYSICIAN ATTESTATION: Based on the medical record the care appears appropriate. ? Medical Records Medical records reviewed: Yes I reviewed the patient's medical records Lab Data Lab results reviewed: Yes I reviewed the patient's lab results Labs: Lab Results 04/09/24 04/09/24 Range/Units 16:15 16:30 WBC 7.7 (4.0-11.0) 10^3/uL RBC 4.88 (4.20-5.40) 10^6/uL Hgb 14.0 (12.0-16.0) g/dL Hct 43.3 (36.0-48.0) % MCV 88.7 (81.0-99.0) fL MCH 28.7 (26.7-34.0) pg MCHC 32.3 (29.9-35.2) g/dL RDW 13.3 (11.0-15.0) % Plt Count 254 (150-450) 10^3/uL MPV 9.8 (9.5-13.5) fL Neut % (Auto) 49.7 (43.0-75.0) % Lymph % (Auto) 36.5 (20.5-60.0) % [place] % (Auto) 10.7 (1.7-12.0) % Eos % (Auto) 2.1 (0.9-7.0) % Baso % (Auto) 0.7 (0.2-2.0) % Neut # (Auto) 3.8 (1.4-6.5) 10^3/uL Lymph # (Auto) 2.8 (1.2-3.8) 10^3/uL [place] # (Auto) 0.8 (0.3-0.8) 10^3/uL Eos # (Auto) 0.2 (0.0-0.7) 10^3/uL Baso # (Auto) 0.1 (0.0-0.1) 10^3/uL Abs Immat Gran (auto) 0.02 (0.00-0.03) 10^3/uL Imm/Tot Granulo (auto) 0.3 (0.0-0.5) % PT 10.1 (9.0-11.6) sec INR 0.95 Sodium 138 (136-145) mmol/L Potassium 4.0 (3.5-5.1) mmol/L Chloride 100 (98-107) mmol/L Carbon Dioxide 28.5 (21.0-32.0) mmol/L Anion Gap 13.5 BUN 22.0 H (7.0-18.0) mg/dL Creatinine 0.93 (0.55-1.02) mg/dL Est GFR ( Amer) >60 (>=60) Est GFR (Non-Af Amer) 59 L (>=60) BUN/Creatinine Ratio 23.7 Glucose 311 H (74-106) mg/dL Lactate 1.7 (0.4-2.0) mmol/L Calcium 9.4 (8.5-10.1) mg/dL Total Bilirubin 0.3 (0.2-1.0) mg/dL AST 15 (15-37) U/L ALT 32 (14-59) U/L Alkaline Phosphatase 87 (46-116) U/L Troponin I High Sens 14.7 (4.0-51.3) pg/mL Total Protein 8.3 H (6.4-8.2) g/dL Albumin 4.0 (3.4-5.0) g/dL Globulin 4.3 g/dL Albumin/Globulin Ratio 0.9 TSH 0.865 (0.358-3.740) uIU/mL Urine Color Lt. yellow (YELLOW) Urine Clarity Clear (CLEAR) Urine pH 6.0 (5.0-9.0) Ur Specific [place] 1.015 (1.005-1.025) Urine Protein Negative (NEG/TRACE) mg/dL Urine Glucose (UA) >=1000 A (NEGATIVE) mg/dL Urine Ketones Negative (NEGATIVE) mg/dL Urine Occult Blood Trace-i (NEGATIVE) Urine Nitrite Negative (NEGATIVE) Urine Bilirubin Negative (NEGATIVE) Urine Urobilinogen 0.2 (0.2-1.0) EU/dL Ur Leukocyte Esterase Negative (NEGATIVE) Urine RBC 0-2 (0-2) #/HPF Urine WBC 0-2 A (NONE SEEN) #/HPF Ur Squamous Epith Cells Few A (NONE/RARE) #/LPF Urine Crystals None seen (None Seen) #/HPF Urine Bacteria None seen (NONE SEEN) #/HPF Urine Casts None seen (NONE SEEN) #/LPF Urine Mucus None seen (NONE SEEN) Ur Culture Indicated? No Imaging Data CT scan - chest: Attestation: I have reviewed the pertinent imaging results. Radiologist's impression: ITS Impressions Chest CTA 04/09/24 16:15 IMPRESSION: 1. No pulmonary embolism or acute abnormalities in chest. 2. No acute abnormalities in the abdomen or pelvis. 3. Right renal lesion has slightly increased in size since 2019 although is favored to be a cyst with internal hemorrhage or debris. Electronically authenticated by: JOSE MARIA VIDAL Date: 04/09/2024 17:26 Femur X-Ray 04/09/24 16:15 IMPRESSION: Moderate right hip degenerative change. Right total knee arthroplasty. Hardware is intact and appropriately positioned. Atherosclerotic calcifications. Remainder of the right femur radiographs is unremarkable. Left total hip arthroplasty. Left total knee arthroplasty. Hardware is intact and appropriately positioned. Atherosclerotic calcifications. Remainder of the left femur radiographs is unremarkable. Electronically authenticated by: JOSE MARIA VIDAL Date: 04/09/2024 17:15 Abdomen/Pelvis CT 04/09/24 16:16 IMPRESSION: 1. No pulmonary embolism or acute abnormalities in chest. 2. No acute abnormalities in the abdomen or pelvis. 3. Right renal lesion has slightly increased in size since 2019 although is favored to be a cyst with internal hemorrhage or debris. Electronically authenticated by: JOSE MARIA VIDAL Date: 04/09/2024 17:26 ECG Data Attestation: I personally reviewed and interpreted this ECG as follows: (Atrial tachycardia at a rate of 142, no acute ST elevation or ectopy. EKG reviewed by attending physician) Discharge Plan Discharge Stand Alone Forms: Portal Instructions Chief Complaint: Extremity Problem, Nontraumatic Clinical Impression: Tachycardia, Low back pain, Polyarthralgia Patient Disposition: Home, Self-Care Time of Disposition Decision: 17:34 Condition: Good Prescriptions / Home Meds: New tramadol 50 mg tablet 50 mg PO Q4H PRN (Reason: pain) 4 Days Qty: 15 0RF Rx Instructions: DX: M54.5 methocarbamol 750 mg tablet 750 mg PO TID PRN (Reason: pain) Qty: 20 0RF No Action doxycycline hyclate 100 mg capsule 100 mg PO BID 10 Days Qty: 20 0RF benzonatate 100 mg capsule 100 mg PO TID PRN (Reason: cough) Qty: 20 0RF Claritin-D 12 Hour 5-120 mg tablet extended release 12 hr 1 tab PO Q12H PRN (Reason: nasal congestion) Qty: 20 0RF metformin 500 mg tablet 500 mg PO BID lisinopril 40 mg tablet 40 mg PO DAILY atorvastatin 20 mg tablet 20 mg PO DAILY carvedilol 25 mg tablet 25 mg PO BID Print Language: Greenlandic Instructions: Acute Low Back Pain (ED), Arthralgia (ED), Tachycardia (ED) Referrals: Gloria Omalley [Primary Care Provider] - 1 week
[2024-04-09 16:45] LABS: Urine Microscopic Indicated YES
[2024-04-09 16:51] LABS: INR 0.95; Prothrombin Time 10.1 sec (9.0-11.6)
[2024-04-09 16:57] LABS: Bacteria Urine NONE SEEN #/HPF (NONE SEEN); RBC Urine 0-2 #/HPF (0-2); WBC Urine 0-2 #/HPF (NONE SEEN)
[2024-04-09 16:58] LABS: Lactate/Lactic Acid 1.7 mmol/L (0.4-2.0)
[2024-04-09 16:58] LABS: Cast Seen? NONE SEEN #/LPF (NONE SEEN); Crystals Seen? None Seen #/HPF (None Seen); Mucus Urine NONE SEEN (NONE SEEN); Squamous Epithelial Cell Urine FEW #/LPF (NONE/RARE); Urine Culture Indicated NO
[2024-04-09 16:59] LABS: Alanine Aminotransferase 32 U/L (14-59); Albumin Globulin Ratio 0.9; Alkaline Phosphatase 87 U/L (46-116); Anion Gap 13.5; Aspartate Amino Transferase 15 U/L (15-37); BUN Creatinine Ratio 23.7; Bilirubin Total 0.3 mg/dL (0.2-1.0); Calcium 9.4 mg/dL (8.5-10.1); Carbon Dioxide 28.5 mmol/L (21.0-32.0); Chloride 100 mmol/L (98-107); Estimated GFR (African America >60 (>=60); Estimated GFR (Non-African Ame 59 (>=60); Globulin 4.3 g/dL; Glucose 311 mg/dL (74-106); Sodium 138 mmol/L (136-145); Total Protein 8.3 g/dL (6.4-8.2); Troponin I High Sensitivity 14.7 pg/mL (4.0-51.3)
[2024-04-09 17:04] LABS: Thyroid Stimulating Hormone 0.865 uIU/mL (0.358-3.740)
--- NOTE | 2024-04-09 17:23 | ECG_ITS ---
[facility] Test Date: 2024-04-09 Pat Name: MARI JAMISON Department: Room: - Gender: Female Shared Services Representative: : [id number] Requested By: Order Number: [id number] Reading MD: URMILA GARIBAY Measurements Intervals [place] Rate: 82 P: 63 MO: 146 QRS: 48 QRSD: 86 T: 21 QT: 358 QTc: 396 Interpretive Statements 1100 Sinus rhythm 4068 Nonspecific [place] abnormality 8102 Low QRS voltage in chest leads 9130 borderline ECG Compared to ECG 04/09/2024 16:11:06 Low QRS voltage now present Electronically Signed On 04-09-2024 18:09:52 EDT by URMILA GARIBAY
== END 2024-04-09 18:05 | disposition home or self-care (01) ==
PROVIDERS: Physician Assistant; Emergency Provider Emergency Medicine Emergency Medical Services; PCP Family Medicine
DX: M54.50 Low back pain, unspecified (principal); R00.0 Tachycardia, unspecified; M25.50 Pain in unspecified joint; Z96.642 Presence of left artificial hip joint; R73.9 Hyperglycemia, unspecified
CPT/HCPCS: 36415; 71275; 73552; 74176; 80053; 81001; 83605; 84443; 84484; 85025; 85610; 93005; 96374; 99285; Q9967

== ENCOUNTER 2024-05-09 16:57 | Emergency (ER) | payer MEDICARE, SELFPAY ==
--- OUTSIDE RECORDS SUMMARY | 2024-05-09 17:04 | XMS_ITS | CCD ---
Author Organization [facility] Care Team Providers Care Side Laster Tack Name Role Phone PHYSICIAN, DEFAULT Unavailable Unavailable [...] Consulting Unavailable Jeni Antonio Primary Care Provider [phone] NON, STAFF, Primary Care Provider Unavailbryson e Krishan [place] Attending Provider [phone] Unavailable Primary Care Provider Unavailabl e [...] Primary Care Unavailable IRENA, LYNN Attending Unavailable IRENAEDLMALYNN Attending Unavailable IRENA, LYNN Referring Unavailable MUKHERJEE, BRISA L Primary Care Unavailable MUKHERJEE, BRISA L Primary Care Unavailable BRECAROLANNSSAMANTHA P Attending Unavailable BREWIS SAMANTHA P Attending Unavailable BREWIS, SAMANTHA P Referring Unavailable MUKHERJEE, BRISA L Primary Care Unavailable RUMSCHLAG, GLORIA [...] Drug Allergy 3 Hives, Nausea And Vomiting [facility] (5 sources) Honey; Translations: [Unknown] Drug allergy (disorder) 0 [facility] (6 sources) Penicillins; Translations: [penicillins] Drug allergy (disorder) 9 Hives, Nausea And Vomiting [facility] (6 sources) Honey Propensity to adverse reactions to drug 3 Sw[place] (1 source) Penicillins Propensity to adverse reactions to drug 3 Hives, Nausea And Vomiting [place] (1 source) Penicillin Drug Allergy Unknown [employer] Other (3 sources) Penicillins Propensity to adverse reactions to drug 7 Hives, Nausea [facility] (5 sources) Perflutren; Translations: [PERFLUTREN LIPID MICROSPHERES] Drug Allergy 1 [facility] Work Phone: Medications Current Medications Medication Drug [...] lumbar region] Episodic Other aftercare (1 source) 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; Translations: [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 USE ORAL HYPOGLYCEMIC DX] Onset: 3 Episodic Other aftercare (1 source) Other senior living (current) drug therapy; Translations: [OTH DETENTION CURRENT DRUG THERAPY] Onset: 3 Episodic Other [...] exam] Onset: 3 07-19-2013 Unclassified (1 source) 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 Fact Sheet for Healthcare Providers: https://www.fda.go v/media/362929/maci nload Fact Sheet for Patients: https://www.fda.go v/media/001443/maci nload Normal [facility] Comment on above: Performed By: #### C OVFLR #### [facility] ([id number]) [address] [facility] [place] [address] XR RIBS RT 3 VWS W PA [...] Alvarenga MD on 10/26/2023 11:55 AM Normal [facility] XR SPINE LUMBAR 2 OR 3 VWSon [...] Mosley MD on 10/26/2023 11:56 AM Normal [facility] XR SPINE THORACIC 2 VWSon XR SPINE [...] Borjas MD on 10/26/2023 12:00 PM Normal [facility] XR FACIAL BONES MIN 3 VWSon 09-28-2023 [...] Mosley MD on 09/28/2023 8:37 AM Normal [facility] BASIC METABOLIC PANLon 09-24 Anion gap [Moles/Vol] 9 mmol/L Normal 5-15 [facility] Comment on above: Performed By: #### B MP, CBCA, 96567-4 #### [facility] ([id number]) [address] [place] [address] 37968 Calcium [Mass/Vol] 9.3 mg/dL Normal 8.5-10.5 [facility] Comment on above: Performed By: #### B MP, CBCA, 18677-0 #### [facility] ([id number]) [address] [place] [address] 84891 Chloride [Moles/Vol] 102 mmol/L Normal 98-[address] [facility] Comment on above: Performed By: #### B CHEYENNE PHILLIPS, 32017-4 #### [facility] ([id number]) [address] [place] [address] 64095 CO2 [Moles/Vol] 26 mmol/L Normal 22-32 [facility] Comment on above: Performed By: #### B CHEYENNE PHILLIPS, 16762-3 #### [facility] ([id number]) [address] [place] [address] 10528 Creatinine [Mass/Vol] 0.64 mg/dL Normal 0.40-1.00 [facility] Comment on above: Result Comment: METH OD TRACEABLE TO IDMS STANDARD Performed By: #### B CHEYENNE PHILLIPS, 19339-0 #### [facility] ([id number]) [address] [place] [address] 14074 eGFR (CKD-EPI) NON-RACE DEPENDENT >90 Normal >59 [facility] Comment on above: Result Comment: Reported eGFR is based on the CKD-EPI 2020 equation that does not use a race coefficient. Performed By: #### B CHEYENNE PHILLIPS, 01348-0 #### [facility] ([id number]) [address] [place] [address] 98239 Glucose [Mass/Vol] 202 mg/dL High 65-99 [facility] Comment on above: Performed By: #### B CHEYENNE PHILLIPS, 55266-3 #### [facility] ([id number]) [address] [place] [address] 03803 Potassium [Moles/Vol] 3.8 mmol/L Normal 3.5-5.0 [facility] Comment on above: Performed By: #### B CHEYENNE PHILLIPS, 99471-6 #### [facility] ([id number]) [address] [place] [address] 30438 Sodium [Moles/Vol] 137 mmol/L Normal 134-146 [facility] Comment on above: Performed By: #### B MP, CBCA, 51665-4 #### [facility] ([id number]) [address] [place] [address] 96400 Urea nitrogen [Mass/Vol] 13 mg/dL Normal 5-27 [facility] Comment on above: Performed By: #### B MP, CBCA, 84938-5 #### [facility] ([id number]) [address] [place] [address] 08449 CBC AND AUTO DIFFon 12-20-20 23 ABSOLUTE BASOPHIL 0.1 X10E9/L Normal 0.0-0.2 [facility] Comment on above: Performed By: #### B MP, CBCA, 31956-1 #### [facility] ([id number]) [address] [place] [address] 47340 ABSOLUTE NEUTROPHIL 3.7 X10E9/L Normal 1.5-6.[address] [facility] Comment on above: Performed By: #### B MP, CBCA, 18733-2 #### [facility] ([id number]) [address] [place] [address] 05395 Basophils/100 WBC (Bld) 1.2 % Normal [facility] Comment on above: Performed By: #### B MP, CBCA, 67365-9 #### [facility] ([id number]) [address] [place] [address] 17841 Eosinophils (Bld) [#/Vol] 0.4 10*3/uL Normal 0.0-0.4 [facility] Comment on above: Performed By: #### B MP, CBCA, 02701-1 #### [facility] ([id number]) [address] [place] [address] 80294 Eosinophils/100 WBC (Bld) 6.7 % Normal [facility] Comment on above: Performed By: #### B ALAN, CBCA, 77119-6 #### [facility] ([id number]) [address] [place] [address] 69335 Erythrocyte distribution wid th (RBC) [Ratio] 13.7 % Normal 11.5-15.0 [facility] Comment on above: Performed By: #### B ALAN, CBCA, 14985-2 #### [facility] ([id number]) [address] [place] [address] 81354 Hematocrit (Bld) [Volume fraction] 39.1 % Normal 35-47 [facility] Comment on above: Performed By: #### B ALAN, CBCA, 63139-0 #### [facility] ([id number]) [address] [place] [address] 22494 Hemoglobin (Bld) [Mass/Vol] 12.9 g/dL Normal 11.7-15. 5 [facility] Comment on above: Performed By: #### B ALAN, CBCA, 38442-4 #### [facility] ([id number]) [address] [place] [address] 39753 Lymphocytes (Bld) [#/Vol] 1.4 10*3/uL Normal 1.0-3.5 [facility] Comment on above: Performed By: #### B ALAN, CBCA, 86684-9 #### [facility] ([id number]) [address] [place] [address] 42218 Lymphocytes/100 WBC (Bld) 22.9 % Normal [facility] Comment on above: Performed By: #### B ALAN, CBCA, 32551-0 #### [facility] ([id number]) [address] [place] [address] 75772 MCH (RBC) [Entitic mass] 28.4 pg Normal 27-34 [facility] Comment on above: Performed By: #### B MP, CBCA, 13079-0 #### [facility] ([id number]) [address] [place] [address] 01656 MCHC (RBC) [Mass/Vol] 33.0 g/dL Normal 32-36 [facility] Comment on above: Performed By: #### B MP, CBCA, 48350-5 #### [facility] ([id number]) [address] [place] [address] 23640 MCV (RBC) [Entitic vol] 86 fL Normal 80-100 [facility] Comment on above: Performed By: #### B MP, CBCA, 33289-0 #### [facility] ([id number]) [address] [place] [address] 12244 Monocytes (Bld) [#/Vol] 0.6 10*3/uL Normal 0-0.9 [facility] Comment on above: Performed By: #### B MP, CBCA, 70031-0 #### [facility] ([id number]) [address] [place] [address] 05297 Monocytes/100 WBC (Bld) 9.8 % Normal [facility] Comment on above: Performed By: #### B MP, CBCA, 08452-2 #### [facility] ([id number]) [address] [place] [address] 35718 Neutrophils/100 WBC (Bld) 59.4 % Normal [facility] Comment on above: Performed By: #### B MP, CBCA, 88908-1 #### [facility] ([id number]) [address] [place] [address] 02941 Platelet mean volume (Bld) [Entitic vol] 8.4 fL Normal 7-12 [facility] Comment on above: Performed By: #### B MP, CBCA, 92684-9 #### [facility] ([id number]) [address] [place] [address] 27463 Platelets (Bld) [#/Vol] 219 10*3/uL Normal 150-450 [facility] Comment on above: Performed By: #### B MP, CBCA, 55984-9 #### [facility] ([id number]) [address] [place] [address] 74631 RBC COUNT 4.53 X10E12/L Normal 3.80-5.20 [facility] Comment on above: Performed By: #### B MP, CBCA, 02756-6 #### [facility] ([id number]) [address] [place] [address] 44729 WBC (Bld) [#/Vol] 6.2 10*3/uL Normal 4.0-11.0 [facility] Comment on above: Performed By: #### B MP, CBCA, 15519-2 #### [facility] ([id number]) [address] [place] [address] 36311 SARS/FLU A+B[facility] SARS/FLU A+B/RSV by NAAT/Molecular FLU A [...] operators who are performing tests using either [employer] or [employer] systems and is limited to laboratories that [...] repeat. Fact Sheet for Healthcare Providers: https://www.fda.go v/OrthoScan/642363/maci nload Fact Sheet for Patients: https://www.fda.go v/OrthoScan/466744/maci nload Normal [facility] Comment on above: Performed By: #### C OVFLR #### [facility] ([id number]) [address] [place] [address] 68905 TROPONIN Ion 09-24-2023 Troponin I.cardiac [Mass/Vol] ng/mL Normal 0.00-0 .04 [facility] Comment on above: Performed By: #### B MP, CBCA, 83429-9 #### [facility] ([id number]) [address] [place] [address] 05631 XR CHEST 2 VWSon 09-24-2023 XR CHEST [...] Thomas Shrestha on 09/24/2023 9:20 AM Normal [facility] Cult,Urineon 05-16-2023 Cult,Urine Specimen Description .CLEAN CATCH URINE Culture NO SIGNIFICANT GROWTH Report Status FINAL 05/16/2023 Normal [facility] Comment on above: Performed By: #### U RC #### [facility] [address] [place], [place] [phone] Special Agent Group Insurance: Dallas Burton MD [facility] [address] [place] [address] Special Agent [employer] Insurance: Lindy Odonnell MD Urinalysis w/ Microon 2022 Bilirubin, SemiQt,Ur Negative Normal NEG [facility] Comment on above: Performed By: #### U AMIC #### [facility] [address] [place] [address] Special Agent [employer] Insurance: Lindy Odonnell MD Blood, Urine Negative Normal NEG [facility] Comment on above: Performed By: #### U AMIC #### [facility] [address] [place] [address] [employer] Agent [employer] Insurance: Lindy Odonnell MD Clarity (U) Clear Normal CLEAR [facility] Comment on above: Performed By: #### U AMIC #### [facility] [address] [place] [address] [employer] Agent [employer] Insurance: Lindy Odonnell MD Color (U) Yellow Normal YEL [facility] Comment on above: Performed By: #### U AMIC #### [facility] [address] [place] [address] [employer] Agent [employer] Insurance: Lindy Odonnell MD Epithelial cells LM Ql (Urin e sed) 2 TO 5 Normal 0-25 [facility] Comment on above: Performed By: #### U AMIC #### [facility] [address] [place] [address] [employer] Agent [employer] Insurance: Lindy Odonnell MD Glucose Ql (U) Negative Normal NEG [facility] Comment on above: Performed By: #### U AMIC #### [facility] [address] [place], [place] [id number] [employer] Agent [employer] Insurance: Lindy Odonnell MD Ketones Ql (U) Negative Normal NEG [facility] Comment on above: Performed By: #### U AMIC #### [facility] [address] [place], [place] [id number] [employer] Agent [employer] Insurance: Lindy Odonnell MD Leukocyte esterase Test stri p Ql (U) Negative Normal NEG [facility] Comment on above: Performed By: #### U AMIC #### [facility] [address] [place] [address] Dr[place], [place] [id number] Special Agent [employer] Insurance: Lindy Odonnell MD Nitrite,Ur Negative Normal [facility] Comment on above: Performed By: #### U AMIC #### [facility] [address] [place] [address] Dr[place], [place] [id number] [employer] Agent [employer] Insurance: Lindy Odonnell MD PH,Ur 5.5 Normal 5.0-9.0 [facility] Comment on above: Performed By: #### U AMIC #### [facility] [address] [place] [address] [place], [place] [id number] [employer] Agent [employer] Insurance: Lindy Odonnell MD Protein Ql (U) Negative Normal [facility] Comment on above: Performed By: #### U AMIC #### [facility] [address] [place], [place] [phone] [employer] Agent [employer] Insurance: Lindy Odonnell MD Spec. [place],Ur 1.025 High 1.010-1.02 0 [facility] Comment on above: Performed By: #### U AMIC #### [facility] [address] [place], [place] [phone] [employer] Agent [employer] Insurance: Lindy Odonnell MD Urine RBC's 0 TO 2 Normal 0-2 [facility] Comment on above: Performed By: #### U AMIC #### [facility] [address] [place] [address] [employer] Agent [employer] Insurance: Lindy Odonnell MD Urine WBC's 0 TO 2 Normal 0-5 [facility] Comment on above: Performed By: #### U AMIC #### [facility] [address] [place], [id number] [employer] Agent [employer] Insurance: Lindy Odonnell MD Urobilinogen,Ur Normal Normal 0.0-1.0 [facility] Comment on above: Performed By: #### U AMIC #### [facility] [address] [place] [address] Special Agent [employer] Insurance: Lindy Odonnell MD CBC AUTO DIFFon 01-05-2023 BASO # 0.0 103/ul Normal 0.0-0.1 [facility] Comment on above: Performed By: #### C BC #### [facility] [address] [place] [address] Dr. Traci Cerna Basophils/100 WBC (Bld) 0.7 % Normal 0.2-2.0 [facility] Comment on above: Performed By: #### C BC #### [facility] [address] [place] [address] Dr. Traci Cerna EO # 0.2 103/ul Normal 0.0-0.7 [facility] Comment on above: Performed By: #### C BC #### [facility] [address] [place] [address] Dr. Traci Cerna Eosinophils/100 WBC (Bld) 3.5 % Normal 0.9-7.0 [facility] Comment on above: Performed By: #### C BC #### [facility] [address] [place] [address] Dr. Traci Cerna Erythrocyte distribution wid th (RBC) [Ratio] 13.6 % Normal 11.0-15.0 [facility] Comment on above: Performed By: #### C BC #### [facility] [address] [place] [address] Dr. Traci Cerna Hematocrit (Bld) [Volume fraction] 38.9 % Normal 36.0-48.0 [facility] Comment on above: Performed By: #### C BC #### [facility] [address] [place] [address] Dr. Traci Cerna Hemoglobin (Bld) [Mass/Vol] 12.8 g/dL Normal 12.0-16. 0 [facility] Comment on above: Performed By: #### C BC #### [facility] [address] [place] [address] Dr. Traci Cerna IG # 0.01 10e3/ul Normal 0.00-0.03 [facility] Comment on above: Performed By: #### C BC #### [facility] [address] [place] [address] Dr. Traci Cerna IG % 0.2 % Normal 0.0-0.5 [facility] Comment on above: Performed By: #### C BC #### [facility] [address] [place] [address] Dr. Traci Cerna LYMPH # 2.0 103/ul Normal 1.2-3.8 [facility] Comment on above: Performed By: #### C BC #### [facility] [address] [place] [address] Dr. Traci Cerna Lymphocytes/100 WBC (Bld) 37.8 % Normal 20.5-60.0 [facility] Comment on above: Performed By: #### C BC #### [facility] [address] [place] [address] Dr. Traci Cerna MANUAL DIFF REQ NO Normal [facility] Comment on above: Performed By: #### C BC #### [facility] [address] [place] [address] Dr. Traci Cerna MCH (RBC) [Entitic mass] 28.6 pg Normal 26.7-34.0 [facility] Comment on above: Performed By: #### C BC #### [facility] [address] [place] [address] Dr. Traci Cerna MCHC (RBC) [Mass/Vol] 32.9 g/dL Normal 29.9-35.2 [facility] Comment on above: Performed By: #### C BC #### [facility] [address] [place] [address] Dr. Traci Cerna MCV (RBC) [Entitic vol] 86.8 fL Normal 81.0-99.0 [facility] Comment on above: Performed By: #### C BC #### [facility] [address] [place] [address] Dr. Traci Cerna MONO # 0.6 103/ul Normal 0.3-0.8 [facility] Comment on above: Performed By: #### C BC #### [facility] [address] [place] [address] Dr. Traci Cerna Monocytes/100 WBC (Bld) 10.8 % Normal 1.7-12.0 [facility] Comment on above: Performed By: #### C BC #### [facility] [address] [place] [address] Dr. Traci Cerna NEUT # 2.5 103/ul Normal 1.4-6.5 [facility] Comment on above: Performed By: #### C BC #### [facility] [address] [place] [address] Dr. Traci Cerna Neutrophils/100 WBC (Bld) 47.0 % Normal 43.0-75.0 [facility] Comment on above: Performed By: #### C BC #### [facility] [address] [place] [address] Dr. Traci Cerna Platelet mean volume (Bld) [Entitic vol] 9.9 fL Normal 9.5-13.5 [facility] Comment on above: Performed By: #### C BC #### [facility] [address] [place] [address] Dr. Traci Cerna PLT 218 103/ul Normal 150-450 [facility] Comment on above: Performed By: #### C BC #### [facility] [address] [place] [address] Dr. Traci Cerna RBC 4.48 106/ul Normal 4.20-5.40 [facility] Comment on above: Performed By: #### C BC #### [facility] [address] [address] [address] Traci Cerna WBC 5.4 103/ul Normal 4.0-11.0 [facility] Comment on above: Performed By: #### C BC #### [facility] [address] [address] NECK ST WO [...] SUSAN PENDLETON Date: 2023-01-05 20:31 Normal [facility] PROF CHEM 8 (BAS METB)on Anion gap [Moles/Vol] 12.3 mmol/L Normal [facility] Comment on above: Performed By: #### T EMMA BMP #### [facility] [address] [address] [address] Traci Cerna Calcium [Mass/Vol] 9.4 mg/dL Normal 8.5-10.1 [facility] Comment on above: Performed By: #### T SH, BMP #### [facility] [address] [address] [address] Traci Cerna Chloride [Moles/Vol] 105 mmol/L Normal 98-107 [facility] Comment on above: Performed By: #### T SH, BMP #### [facility] [address] [address] [address] Traci Cerna CO2 [Moles/Vol] 29.0 mmol/L Normal 21.0-32.0 [facility] Comment on above: Performed By: #### T SH, BMP #### [facility] [address] [address] [address] Traci Cerna Creatinine [Mass/Vol] 0.78 mg/dL Normal 0.55-1.02 [facility] Comment on above: Performed By: #### T SH, BMP #### [facility] [address] [address] [address] Traci Cerna EGFR-AF DOMINICAN >60 Normal >=60 [facility] Comment on above: Performed By: #### T SH, BMP #### [facility] [address] [address] [address] Traci Cerna EGFR-NON AF DOMINICAN >60 Normal >=60 [facility] Comment on above: Performed By: #### T SH, BMP #### [facility] [address] [address] [address] Traci Cerna Glucose [Mass/Vol] 178 mg/dL Critically high 74-106 [facility] Comment on above: Performed By: #### T SH, BMP #### [facility] [address] [address] [address] Traci Cerna Potassium [Moles/Vol] 4.3 mmol/L Normal 3.5-5.1 [facility] Comment on above: Performed By: #### T SH, BMP #### [facility] [address] [address] [address] Traci Cerna Sodium [Moles/Vol] 142 mmol/L Normal 136-145 [facility] Comment on above: Performed By: #### T SH, BMP #### [facility] [address] [address] [address] Traci Cerna Urea nitrogen [Mass/Vol] 21.0 mg/dL Critically high 7.0-18 .0 [facility] Comment on above: Performed By: #### T SH, BMP #### [facility] [address] [place], [place] [address] Dr. Traci Cerna Urea nitrogen/Creatinine [Ma ss ratio] 26.9 mg/mg Normal [facility] Comment on above: Performed By: #### T SH, BMP #### [facility] [address] [place], [place] [address] Dr. Traci Cerna TSHon 01-05-2023 TSH 0.650 uIU/mL Normal 0.358-3.74 0 [facility] Comment on above: Performed By: #### T SH, BMP #### [facility] [address] [place], [place] [address] Dr. Traci Cerna US Thyroidon 12-30-2022 US Thyroid CLINICAL HISTORY: Enlarged thyroid on physical exam. COMPARISON: None available. TECHNIQUE: Ultrasound of the thyroid was performed with a regional survey. Reference: ACR Thyroid, Imaging Recording and Data System (TI-RADS): White paper of the ACR TI-RADS committee. Journal of the [place] [employer]: Volume 14, issue 5, [...] by Mac Dai on 01/01/2023 0924 Normal [facility] Magazine Writer Colonoscopy studyOrdered By: Jairo Fisher on 04-03-2021 No dictation [employer] Work Phone: [employer] Work Phone: EsophagogastroduodenoscopyOr dered By: Jairo Fisher on 04-03-2021 No dictation [employer] Work Phone: [employer] Work Phone: .UA Microscp Aon 07-15-2019 UA Mucus Present Abnormal Absent [facility] Comment on above: Performed By: #### E GFR #### [place] [address] UA RBC Quant 0 /HPF Normal 0-5 [facility] Comment on above: Performed By: #### E GFR #### [place] [address] UA Squepi Cells Quant 1 /HPF Normal 0-29 [facility] Comment on above: Performed By: #### E GFR #### [place] [id number] UA WBC Quant 1 /HPF Normal 0-5 [facility] Comment on above: Performed By: #### E GFR #### [place] [address] Consultation Note - Generico n 07-15-2019 Consultation [...] Koki Marquez DO 07/15/19 01:10 EDT Normal [facility] Inpatient Clinical Summaryon 07-15-2019 Inpatient Clinical Summary [facility] [address] [place] [address] [address] Clinical Summary Person Information Name: Mari Jamison Age: 69 Years : 1950 Sex: Female PCP: Marital Status: PCP: Race: White Ethnicity: Not or Language: Mozambican Visit Id: Visit Reason: Speciality: Acuity: Enc Type: Inpatient Med Service: Surgery Arrival: 07/14/2019 05:57:15 Discharge: Dispo Type: Address: [address] [place] [id number] Diagnosis: History of total left hip replacement; [...] STAY New Medications Printed Prescriptions hydrocodone-acetam inophen (Southlake 5 mg-325 mg oral tablet) 1 Tabs [...] PATIENT?S CURRENT MEDICATIONS Printed Prescriptions hydrocodone-acetam inophen (Southlake 5 mg-325 mg oral tablet) 1 Tabs [...] With: Address: When: Juan Casey MD [address] [place] [phone] Normal [facility] POC Glucose Randomon 019 Glucose [Mass/Vol] 278 mg/dL High 78-110 [facility] Comment on above: Performed By: #### E GFR #### [facility] [address] [place] [address] Glucose [Mass/Vol] 189 mg/dL High 78-110 [facility] Comment on above: Performed By: #### C OMP #### [address] [place] [address] Glucose [Mass/Vol] 181 mg/dL High 78-110 [facility] Comment on above: Performed By: #### C OMP #### [address] [place] [address] Glucose [Mass/Vol] 236 mg/dL High 78-110 [facility] Comment on above: Performed By: #### C OMP #### [address] [address] Glucose [Mass/Vol] 233 mg/dL High 78-110 [facility] Comment on above: Performed By: #### C OMP #### [address] [address] Glucose [Mass/Vol] 283 mg/dL High 78-110 [facility] Comment on above: Performed By: #### C OMP #### [address] [address] UA w Culture if Indon 2018 Color (U) Yellow Normal [facility] Comment on above: Performed By: #### E GFR #### [address] [address] Glucose (U) [Mass/Vol] 150 mg/dL Abnormal Negative [facility] Comment on above: Performed By: #### E GFR #### [address] [address] Ketones Ql (U) Negative Normal Negative [facility] Comment on above: Performed By: #### E GFR #### [address] [address] UA Blood Negative Normal Negative [facility] Comment on above: Performed By: #### E GFR #### [address] [address] UA Clarity Clear Normal [facility] Comment on above: Performed By: #### E GFR #### [address] [address] UA Leukocyte Esterase Negative Normal Negative [facility] Comment on above: Performed By: #### E GFR #### [address] [address] UA Nitrite Negative Normal Negative [facility] Comment on above: Performed By: #### E GFR #### [address] [address] UA pH 6.0 Normal 4.5 - 7.8 [facility] Comment on above: Performed By: #### E GFR #### [address] [address] UA Protein Negative Normal Negative [facility] Comment on above: Performed By: #### E GFR #### [address] [address] UA Source Clean Catch Normal [facility] Comment on above: Performed By: #### E GFR #### [address] [address] UA Spec Grav 1.010 Normal 1.003-1.03 5 [facility] Comment on above: Performed By: #### E GFR #### [address] [address] UA Urobilinogen 0.2 mg/dL Normal 0.2 - 1.0 [facility] Comment on above: Performed By: #### E GFR #### [address] [address] Urobilinogen Qn (U) Negative Normal Negative [facility] Comment on above: Performed By: #### E GFR #### [address] [address] .eGFRon 07-14-2019 eGFR Non-AA >60 Normal >=60 [facility] Comment on above: Result Comment: Resu lt [...] dosing. Performed By: #### C OMP #### [address] [address] eGFR AA >60 Normal >=60 [facility] Comment on above: Result Comment: Resu lt = 0-14.9 mL/min/1.73 m2 Kidney failure or Dialysis Result = 15-29 mL/min/1.73 m2 Severe decrease in GFR Result = 30-59 mL/min/1.73 m2 Moderate decrease in GFR Result >= 60 mL/min/1.73 m2 Normal or increased GFR Performed By: #### C OMP #### [address] [address] Basic Metabolic Profileon Anion gap [Moles/Vol] 14 mmol/L Normal 7-17 [facility] Comment on above: Performed By: #### C [id number] #### [address] [address] Calcium [Mass/Vol] 8.9 mg/dL Normal 8.5-10.3 [facility] Comment on above: Performed By: #### C [id number] #### [address] [address] Chloride [Moles/Vol] 104 mmol/L Normal 98-110 [facility] Comment on above: Performed By: #### C D:[id number] #### [address] [address] CO2 [Moles/Vol] 25 mmol/L Normal 22-32 [facility] Comment on above: Performed By: #### C D:[id number] #### [address] [address] Creatinine [Mass/Vol] 0.75 mg/dL Normal 0.44-1.03 [facility] Comment on above: Performed By: #### C [id number] #### [address] [address] Glucose [Mass/Vol] 206 mg/dL High 74-118 [facility] Comment on above: Performed By: #### C [id number] #### [address] [address] Potassium [Moles/Vol] 3.8 mmol/L Normal 3.4-4.8 [facility] Comment on above: Performed By: #### C D:[id number] #### [address] [address] Sodium [Moles/Vol] 139 mmol/L Normal 133-142 [facility] Comment on above: Performed By: #### C [id number] #### [address] [address] Urea nitrogen [Mass/Vol] 20 mg/dL Normal 8-26 [facility] Comment on above: Performed By: #### C [id number] #### [address] [address] Urea nitrogen/Creatinine [Ma ss ratio] 26.7 mg/mg High 10.0-20.0 [facility] Comment on above: Performed By: #### C D:[id number] #### [address] [address] Hgb & Hcton 07-14-2019 Hematocrit (Bld) [Volume fraction] 33.0 % Low 36.0-46.0 [facility] Comment on above: Performed By: #### C D:[id number] #### [address] [address] Hemoglobin (Bld) [Mass/Vol] 10.9 g/dL Low 12.0-16. 0 [facility] Comment on above: Performed By: #### C D:[id number] #### [address] [address] Operative Reporton 9 Operative Report Indication for Surgery Degenerative arthritis left hip Preoperative Diagnosis Degenerative arthritis left hip Postoperative Diagnosis Same Operation Left total hip replacement Parveen 54 mm Continuum cup Fit more B4 femoral stem Versus 36 mm head +0 neck 2 acetabular screws 36 mm inner diameter elevated liner Surgeon(s) Dr. Juan Casey Logging Crew Supervisor [facility] Anesthesia General Estimated Blood Loss 550 [...] layer was then closed with #1 Ethibond [id number] sutures. The second half of the vancomycin [...] Juan Casey MD 07/14/19 10:28 EDT Normal [facility] POC Glucose Randomon 019 Glucose [Mass/Vol] 215 mg/dL High 78-110 [facility] Comment on above: Performed By: #### E GFR #### [address] [address] Glucose [Mass/Vol] 119 mg/dL High 78-110 [facility] Comment on above: Performed By: #### C D:[id number] #### [address] [address] Glucose [Mass/Vol] 136 mg/dL High 78-110 [facility] Comment on above: Performed By: #### C D:[id number] #### [place] [address] [place] [address] Glucose [Mass/Vol] 204 mg/dL High 78-110 [facility] Comment on above: Performed By: #### C D:[id number] #### [place] [address] [place] [address] Glucose [Mass/Vol] 267 mg/dL High 78-110 [facility] Comment on above: Performed By: #### C D:[id number] #### [address] [address] Glucose [Mass/Vol] 164 mg/dL High 78-110 [facility] Comment on above: Performed By: #### C D:[id number] #### [address] [address] XR Hip Operative 1 View Left on [...] Electronically Signed in Other Vendor System) Normal [facility] ABO/Rhon 07-02-2019 ABO/Rh SD 07/14/2019 DCon: 0 ABO/Rh: O NEG Normal [facility] Comment on above: Performed By: #### C D:[id number] #### [address] [address] ABSC Autoon 07-02-2019 ABSC Auto Negative Normal [facility] Comment on above: Performed By: #### C D:[id number] #### [address] [address] CBC w/ Diffon 07-02-2019 Erythrocyte distribution wid th (RBC) [Ratio] 14.1 % Normal 11.6-14.8 [facility] Comment on above: Performed By: #### C [id number] #### [address] [address] Hematocrit (Bld) [Volume fraction] 39.9 % Normal 36.0-46.0 [facility] Comment on above: Performed By: #### C D:[id number] #### [address] [address] Hemoglobin (Bld) [Mass/Vol] 13.5 g/dL Normal 12.0-16. 0 [facility] Comment on above: Performed By: #### C D:[id number] #### [address] [address] MCH (RBC) [Entitic mass] 28.9 pg Normal 27.0-35.0 [facility] Comment on above: Performed By: #### C D:[id number] #### [address] [address] MCHC (RBC) [Mass/Vol] 33.8 % Normal 31.0-37.0 [facility] Comment on above: Performed By: #### C D:[id number] #### [address] [address] MCV (RBC) [Entitic vol] 85.6 fL Normal 80.0-100.0 [facility] Comment on above: Performed By: #### C D:[id number] #### [address] [address] Platelet mean volume (Bld) [Entitic vol] 8.3 fL Normal 6.7-10.6 [facility] Comment on above: Performed By: #### C D:[id number] #### [address] [address] Platelets (Bld) [#/Vol] 214 x10*3/mcL Normal 150-350 [facility] Comment on above: Performed By: #### C D:[id number] #### [address] [address] RBC (Bld) [#/Vol] 4.67 x10*6/mcL Normal 3.80-5.20 [facility] Comment on above: Performed By: #### C D:[id number] #### [address] [address] WBC (Bld) [#/Vol] 5.2 x10*3/mcL Normal 4.5-11.0 [facility] Comment on above: Performed By: #### C D:[id number] #### [address] [address] Diff Autoon 07-02-2019 Baso Absolute 0.0 x10*3/mcL Normal 0.0-0.2 [facility] Comment on above: Performed By: #### C D:[id number] #### [address] [address] Basophils/100 WBC (Bld) 0.5 % Normal 0.0-1.5 [facility] Comment on above: Performed By: #### C D:[id number] #### [address] [address] Eos Absolute 0.1 x10*3/mcL Normal 0.0-0.4 [facility] Comment on above: Performed By: #### C D:[id number] #### [address] [address] Eosinophils/100 WBC (Bld) 2.0 % Normal 0.0-5.4 [facility] Comment on above: Performed By: #### C D:[id number] #### [address] [address] Lymphocytes (Bld) [#/Vol] 1.6 x10*3/mcL Normal 1.0-4.8 [facility] Comment on above: Performed By: #### C D:[id number] #### [address] [address] Lymphocytes/100 WBC (Bld) 30.9 % Normal 27.2-40.8 [facility] Comment on above: Performed By: #### C D:[id number] #### [address] [address] [place] Absolute 0.6 x10*3/mcL Normal 0.1-1.1 [facility] Comment on above: Performed By: #### C D:[id number] #### [address] [address] Monocytes/100 WBC (Bld) 11.8 % Normal 3.7-11.9 [facility] Comment on above: Performed By: #### C D:[id number] #### [address] [address] Neutro Absolute 2.8 x10*3/mcL Normal 1.8-7.7 [facility] Comment on above: Performed By: #### C D:[id number] #### [address] [address] Neutro Auto 54.8 % Normal 47.2-70.8 [facility] Comment on above: Performed By: #### C D:[id number] #### [address] [address] .eGFRon 12-31-2018 eGFR Non-AA >60 Normal >=60 [facility] Comment on above: Result Comment: Resu lt [...] for medication dosing. Performed By: #### C D:[id number] #### [address] [address] eGFR AA >60 Normal >=60 [facility] Comment on above: Result Comment: Resu lt = 0-14.9 mL/min/1.73 m2 Kidney failure or Dialysis Result = 15-29 mL/min/1.73 m2 Severe decrease in GFR Result = 30-59 mL/min/1.73 m2 Moderate decrease in GFR Result >= 60 mL/min/1.73 m2 Normal or increased GFR Performed By: #### C D:[id number] #### [address] [address] Basic Metabolic Profileon Anion gap [Moles/Vol] 12 mmol/L Normal 7-17 [facility] Comment on above: Performed By: #### C BC #### [address] [address] Calcium [Mass/Vol] 8.9 mg/dL Normal 8.5-10.3 [facility] Comment on above: Performed By: #### C BC #### [address] [address] Chloride [Moles/Vol] 107 mmol/L Normal 98-110 [facility] Comment on above: Performed By: #### C BC #### [address] [address] CO2 [Moles/Vol] 21 mmol/L Low 22-32 [facility] Comment on above: Performed By: #### C BC #### [address] [address] Creatinine [Mass/Vol] 0.74 mg/dL Normal 0.44-1.03 [facility] Comment on above: Performed By: #### C BC #### [address] [address] Glucose [Mass/Vol] 243 mg/dL High 74-118 [facility] Comment on above: Performed By: #### C BC #### [address] [address] Potassium [Moles/Vol] 4.0 mmol/L Normal 3.4-4.8 [facility] Comment on above: Performed By: #### C BC #### [address] [address] Sodium [Moles/Vol] 136 mmol/L Normal 133-142 [facility] Comment on above: Performed By: #### C BC #### [address] [address] Urea nitrogen [Mass/Vol] 21 mg/dL Normal 8-26 [facility] Comment on above: Performed By: #### C BC #### [address] [address] Urea nitrogen/Creatinine [Ma ss ratio] 28.4 mg/mg High 10.0-20.0 [facility] Comment on above: Performed By: #### C BC #### [address] [address] Hgb & Hcton 12-31-2018 Hematocrit (Bld) [Volume fraction] 32.0 % Low 36.0-46.0 [facility] Comment on above: Performed By: #### C BC #### [address] [address] Hemoglobin (Bld) [Mass/Vol] 10.7 g/dL Low 12.0-16. 0 [facility] Comment on above: Performed By: #### C BC #### [address] [address] Inpatient Clinical Summaryon 12-31-2018 Inpatient Clinical Summary [address] [address] [address] [address] Clinical Summary Person Information Name: Mari Jamison Age: 68 Years : 1950 Sex: Female PCP: Suzie Mota CNP Marital Status: PCP: [phone] Race: White Ethnicity: Not or Language: Mozambican Visit Id: Visit Reason: Speciality: Acuity: Enc Type: Observation Med Service: Surgery Arrival: 12/30/2018 06:28:09 Discharge: Dispo Type: Address: [address] [facility] [address] Diagnosis: 1:S/P total knee replacement; 2:Arthritis of [...] tolerable. Discharge Patient Education Review and attach [facility] Hip/Knee Inpatient Discharge Special Instructions If your [...] Have Not Changed Printed Prescriptions hydrocodone-acetam inophen (Southlake 5 mg-325 mg oral tablet) 1 Tabs [...] PATIENT?S CURRENT MEDICATIONS Printed Prescriptions hydrocodone-acetam inophen ([place]lake 5 mg-325 mg oral tablet) 1 Tabs [...] up: With: Address: When: Juan Casey [address] [place] [phone] Business (1) Within 1 to 2 weeks Comments: 2 weeks With: Address: When: Suzie Mota [address] [place] [phone] Business (1) Normal [facility] POC Glucose Randomon 019 Glucose [Mass/Vol] 270 mg/dL High 78-110 [facility] Comment on above: Performed By: #### C [id number] #### [address] [address] Glucose [Mass/Vol] 149 mg/dL High 78-110 [facility] Comment on above: Performed By: #### C D:[id number] #### [address] [address] Glucose [Mass/Vol] 174 mg/dL High 78-110 [facility] Comment on above: Performed By: #### C D:[id number] #### [address] [address] Glucose [Mass/Vol] 244 mg/dL High 78-110 [facility] Comment on above: Performed By: #### C BC #### [address] [address] Glucose [Mass/Vol] 303 mg/dL High 78-110 [facility] Comment on above: Performed By: #### C BC #### [address] [address] Progress Note - [employer] Progress Note - [...] femoral vein. Results called to ELROY Snider. Machine Captain: Maribel Collins, RVT Radiologist Report Signature Line [...] Bishop MCCORMICKTomas Ramon 12/31/18 13:28 EDT Normal [facility] Extremity Venous Duplex L trevon Stone 12-31-2018 VL Extremity Venous Duplex Lower Left Preliminary Technologist Report Left lower extremity: Appeared to be no evidence of acute or chronic DVT in the visualized veins. Normal comparative study of the right common femoral vein. Results called to ELROY Snider. Machine Captain: Maribel Collins RVT Radiologist Report Left lower [...] Electronically Signed in Other Vendor System) Normal [facility] Consultation Note - Generico n 12-30-2018 Consultation Note - Generic Chief Compla int LEFT KNEE PAIN/ARTHRITIS-KAMINI EDULED FOR TOTAL LEFT KNEE Reason for Consultation diabetes management History of Present Illness PCP: Suzie mota, ANNY- [facility] orthopedist: Dr. Juan Casey urologist: Dr. patsy Lane spine surgeon: Dr. Krishan Espan[place]- [place], [place] The patient is a 68-year-old female with [...] 7.7 on pre op labs December 2018. [place] reports that she has yearly diabetic eye [...] replacement - per ortho recommendations - on Southlake prn pain and IV dilaudid prn breakthrough pain - Xarelto prn DVT prophylaxis. 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 Has rxs for Xarelto and Southlake to be continued on discharge - plans [...] Limited # of times, Dispense From Location: Iibtazd-HVI-7D glucose, 12.5 g, IV Push, Injection, As Indicated for 20 doses, PRN other (see comment), First Dose: 12/30/18 15:58:00 EDT, Stop Date: Limited # of times, Dispense From Location: Hzgnimc-DLN-0E insulin aspart, 4, Subcutaneous, Injection, Once, First [...] Dose: 12/31/18 9:00:00 EDT, Dispense From Location: Ofusjaj-ZPE-5M meclizine, 12.5 mg, Oral, Tab, Daily, PRN dizziness, First Dose: 12/30/18 15:56:00 EDT, Dispense From Location: Zhyycpp-WXP-2B omeprazole, 20 mg, Oral, Cap-DR, qAM, First Dose: 12/31/18 7:00:00 EDT, Dispense From Location: [address] ADA Diet Blood Glucose Monitoring POC Blood Glucose Monitoring POC Blood Glucose Monitoring POC Blood Glucose Monitoring POC Insulin Safety [place] Insulin Safety [place] Notify Provider Notify Provider Notify Provider Notify [...] 2 mL, IV Push, q6hr, PRN Prescriptions Southlake 5 mg-325 mg oral tablet, 1 tabs, [...] (12/08/18) Methicillin Resistant Staph aurus(MRSA): Negative (12/30/18) [place] Absolute: 0.7 (12/08/18) [place] Auto: 10.3 (12/08/18) Neutro Absolute: 3.4 (12/08/18) Neutro Auto: 53.2 (12/08/18) POC Gluc Random: 374 mg/dL (12/30/18) RBC: 4.56 (12/08/18) RDW: 13.9 (12/08/18) Sed Rate: 13 (12/08/18) Total Protein: 7.6 (12/08/18) UA Mucus: Present (12/08/18) UA RBC Quant: 0 (12/08/18) UA Squepi Cells Quant: 1 (12/08/18) UA WBC Quant: 1 (12/08/18) Diagnostic Results ECG 12/08/18 with evidence of prior inferior TN Electronically signed by DoedMarcia hunt DO 12/30/18 [...] DoedMarcia hunt DO 12/30/18 23:19 EDT Normal [facility] MRSA, PCRon [id number] INR Coag (Bld) [Relative time] Negative Normal [facility] Comment on above: Result Comment: The [employer] Xpert MRSA Assay is a qualitative in [...] the clinician. Performed By: #### C #### [place] [address] Operative Reporton 9 Operative Report Indication for Surgery Degenerative arthritis left knee Preoperative Diagnosis Degenerative arthritis left knee Postoperative Diagnosis Same Operation Left total knee replacement Parveen persona knee Persona CR 7 femoral component Persona stemmed E plateau 10 mm CR vitamin E poly- 32 mm vitamin E patellar dome Surgeon(s) Dr. Percy Casey Logging Crew Supervisor Ce Jodi ANDERSON Anesthesia Spinal Estimated Blood [...] go with a 32 mm patella dome. [place] holes were placed. The knee was then [...] Juan Casey MD 12/30/18 11:47 EDT Normal [facility] POC Glucose Randomon 019 Glucose [Mass/Vol] 374 mg/dL High 78-110 [facility] Comment on above: Performed By: #### C BC #### [facility] [address] [place] [address] Glucose [Mass/Vol] 334 mg/dL High 78-110 [facility] Comment on above: Performed By: #### C BC #### [address] [address] Glucose [Mass/Vol] 141 mg/dL High 78-110 [facility] Comment on above: Performed By: #### C BC #### [address] [address] Glucose [Mass/Vol] 179 mg/dL High 78-110 [facility] Comment on above: Performed By: #### C [id number] #### [address] [address] C Urineon 12-10-2018 C Urine Final 20-30,000 cfu/ml Mixed gram positive ananth isolated. This urine contains 3 or more organisms which is inconsistent with clean catch collection. Consider the possibility of contamination during collection. No identification or susceptibility performed as results would be misleading Normal [facility] Comment on above: Performed By: #### U RC #### [address] [address] .UA Microscp Aon 12-08-2018 UA Mucus Present Abnormal Absent [facility] Comment on above: Performed By: #### C D:[id number] #### [address] [address] UA RBC Quant 0 /HPF Normal 0-5 [facility] Comment on above: Performed By: #### C D:[id number] #### [address] [address] UA Squepi Cells Quant 1 /HPF Normal 0-29 [facility] Comment on above: Performed By: #### C D:[id number] #### [address] [address] UA WBC Quant 1 /HPF Normal 0-5 [facility] Comment on above: Performed By: #### C D:[id number] #### [address] [address] .eGFRon 12-08-2018 eGFR Non-AA >60 Normal >=60 [facility] Comment on above: Result Comment: Resu lt [...] dosing. Performed By: #### E GFR #### [place] [address] eGFR AA >60 Normal >=60 [facility] Comment on above: Result Comment: Resu lt = 0-14.9 mL/min/1.73 m2 Kidney failure or Dialysis Result = 15-29 mL/min/1.73 m2 Severe decrease in GFR Result = 30-59 mL/min/1.73 m2 Moderate decrease in GFR Result >= 60 mL/min/1.73 m2 Normal or increased GFR Performed By: #### E GFR #### [place] [id number] CBC w/ Diffon 12-08-2018 Erythrocyte distribution wid th (RBC) [Ratio] 13.9 % Normal 11.6-14.8 [facility] Comment on above: Performed By: #### C BC #### [address] [address] Hematocrit (Bld) [Volume fraction] 39.7 % Normal 36.0-46.0 [facility] Comment on above: Performed By: #### C BC #### [address] [address] Hemoglobin (Bld) [Mass/Vol] 12.9 g/dL Normal 12.0-16. 0 [facility] Comment on above: Performed By: #### C BC #### [address] [address] MCH (RBC) [Entitic mass] 28.3 pg Normal 27.0-35.0 [facility] Comment on above: Performed By: #### C BC #### [address] [address] MCHC (RBC) [Mass/Vol] 32.5 % Normal 31.0-37.0 [facility] Comment on above: Performed By: #### C BC #### [address] [address] MCV (RBC) [Entitic vol] 87.1 fL Normal 80.0-100.0 [facility] Comment on above: Performed By: #### C BC #### [address] [address] Platelet mean volume (Bld) [Entitic vol] 8.2 fL Normal 6.7-10.6 [facility] Comment on above: Performed By: #### C BC #### [address] [address] Platelets (Bld) [#/Vol] 218 x10*3/mcL Normal 150-350 [facility] Comment on above: Performed By: #### C BC #### [address] [address] RBC (Bld) [#/Vol] 4.56 x10*6/mcL Normal 3.80-5.20 [facility] Comment on above: Performed By: #### C BC #### [address] [address] WBC (Bld) [#/Vol] 6.5 x10*3/mcL Normal 4.5-11.0 [facility] Comment on above: Performed By: #### C BC #### [address] [address] CMPon 12-08-2018 Albumin [Mass/Vol] 4.0 g/dL Normal 3.2-4.9 [facility] Comment on above: Result Comment: [facility] Laboratory updated the methodology used for albumin testing on 05/13/18. Albumin measurement was performed using a bromcresol purple dye-binding assay. Performed By: #### C OMP #### [address] [address] Albumin/Globulin [Mass ratio] 1.1 {ratio} Normal 1.1-2 .2 [facility] Comment on above: Performed By: #### C OMP #### [address] [address] Alk Phos 58 IU/L Normal 32-91 [facility] Comment on above: Performed By: #### C OMP #### [address] [address] ALT [Catalytic activity/Vol] 18 U/L Normal 14-54 [facility] Comment on above: Performed By: #### C OMP #### [address] [address] Anion gap [Moles/Vol] 15 mmol/L Normal 7-17 [facility] Comment on above: Performed By: #### C OMP #### [address] [address] AST [Catalytic activity/Vol] 20 U/L Normal 15-41 [facility] Comment on above: Performed By: #### C OMP #### [address] [address] Bili Total 0.6 mg/dL Normal 0.3-1.2 [facility] Comment on above: Performed By: #### C OMP #### [address] [address] Calcium [Mass/Vol] 9.2 mg/dL Normal 8.5-10.3 [facility] Comment on above: Performed By: #### C OMP #### [address] [place] [address] Chloride [Moles/Vol] 100 mmol/L Normal 98-110 [facility] Comment on above: Performed By: #### C OMP #### [address] [address] CO2 [Moles/Vol] 25 mmol/L Normal 22-32 [facility] Comment on above: Performed By: #### C OMP #### [address] [address] Creatinine [Mass/Vol] 0.63 mg/dL Normal 0.44-1.03 [facility] Comment on above: Performed By: #### C OMP #### [address] [address] Glucose [Mass/Vol] 156 mg/dL High 74-118 [facility] Comment on above: Performed By: #### C OMP #### [address] [address] Potassium [Moles/Vol] 4.0 mmol/L Normal 3.4-4.8 [facility] Comment on above: Performed By: #### C OMP #### [address] [address] Protein [Mass/Vol] 7.6 g/dL Normal 6.5-8.1 [facility] Comment on above: Performed By: #### C OMP #### [address] [address] Sodium [Moles/Vol] 136 mmol/L Normal 133-142 [facility] Comment on above: Performed By: #### C OMP #### [address] [address] Urea nitrogen [Mass/Vol] 16 mg/dL Normal 8-26 [facility] Comment on above: Performed By: #### C OMP #### [address] [address] Urea nitrogen/Creatinine [Ma ss ratio] 25.4 mg/mg High 10.0-20.0 [facility] Comment on above: Performed By: #### C OMP #### [address] [address] Diff Autoon 12-08-2018 Baso Absolute 0.0 x10*3/mcL Normal 0.0-0.2 [facility] Comment on above: Performed By: #### . Automated Diff #### [address] [address] Basophils/100 WBC (Bld) 0.8 % Normal 0.0-1.5 [facility] Comment on above: Performed By: #### . Automated Diff #### [address] [address] Eos Absolute 0.2 x10*3/mcL Normal 0.0-0.4 [facility] Comment on above: Performed By: #### . Automated Diff #### [address] [address] Eosinophils/100 WBC (Bld) 2.8 % Normal 0.0-5.4 [facility] Comment on above: Performed By: #### . Automated Diff #### [address] [address] Lymphocytes (Bld) [#/Vol] 2.1 x10*3/mcL Normal 1.0-4.8 [facility] Comment on above: Performed By: #### . Automated Diff #### [address] [address] Lymphocytes/100 WBC (Bld) 32.9 % Normal 27.2-40.8 [facility] Comment on above: Performed By: #### . Automated Diff #### [address] [address] [place] Absolute 0.7 x10*3/mcL Normal 0.1-1.1 [facility] Comment on above: Performed By: #### . Automated Diff #### [address] [address] Monocytes/100 WBC (Bld) 10.3 % Normal 3.7-11.9 [facility] Comment on above: Performed By: #### . Automated Diff #### [address] [address] Neutro Absolute 3.4 x10*3/mcL Normal 1.8-7.7 [facility] Comment on above: Performed By: #### . Automated Diff #### [address] [address] Neutro Auto 53.2 % Normal 47.2-70.8 [facility] Comment on above: Performed By: #### . Automated Diff #### [address] [address] ESRon 12-08-2018 ESR (Bld) [Velocity] 13 mm/h Normal 0-30 [facility] Comment on above: Performed By: #### E SR #### [address] [address] Hgb A1con 12-08-2018 HbA1c (Bld) [Mass fraction] 7.7 % A1c High 4.0-6.0 [facility] Comment on above: Performed By: #### H BA1C #### [address] [address] HbA1c (Bld) [Mass fraction] 174 mg/dL High 74-118 [facility] Comment on above: Result Comment: Math ematical Calc approx. The mean gluc equivalency of A1c Performed By: #### H BA1C #### [address] [address] UA Routine without Cultureon 12-08-2018 Color (U) Yellow Normal [facility] Comment on above: Performed By: #### C [id number] #### [address] [address] Glucose (U) [Mass/Vol] Negative Normal Negative [facility] Comment on above: Performed By: #### C [id number] #### [address] [address] Ketones Ql (U) Negative Normal Negative [facility] Comment on above: Performed By: #### C [id number] #### [address] [place] [address] UA Blood Small Abnormal Negative [facility] Comment on above: Performed By: #### C [id number] #### [address] [place] [address] UA Clarity Clear Normal [facility] Comment on above: Performed By: #### C [id number] #### [address] [place] [address] UA Leukocyte Esterase Trace Abnormal Negative [facility] Comment on above: Performed By: #### C [id number] #### [address] [place] [address] UA Nitrite Negative Normal Negative [facility] Comment on above: Performed By: #### C [id number] #### [address] [place] [address] UA pH 5.0 Normal 4.5 - 7.8 [facility] Comment on above: Performed By: #### C [id number] #### [address] [address] UA Protein Negative Normal Negative [facility] Comment on above: Performed By: #### C [id number] #### [address] [place] [address] UA Spec Grav 1.018 Normal 1.003-1.03 5 [facility] Comment on above: Performed By: #### C [id number] #### [address] [place] [address] UA Urobilinogen 0.2 mg/dL Normal 0.2 - 1.0 [facility] Comment on above: Performed By: #### C [id number] #### [address] [place] [address] Urobilinogen Qn (U) Negative Normal Negative [facility] Comment on above: Performed By: #### C [id number] #### [facility] [address] [place] [address] Vital Signs Date Time Vital Sign Value Performing Clinician Facility 12-08-2023 09:58-0500 Body height 162.6 cm Narinder Palomo MD Work Phone: [facility] 12-08-2023 09:58-0500 Body mass index (BMI) [Ratio] 33.99 kg/m2 Narinder Palomo MD Work Phone: [facility] 12-08-2023 09:58-0500 Body weight 89.81 kg Narinder Palomo MD Work Phone: [facility] 12-08-2023 09:58-0500 Diastolic blood pressure 98 mm[Hg] Narinder Palomo MD Work Phone: [facility] 12-08-2023 09:58-0500 Heart rate 95 /min Narinder Palomo MD Work Phone: [facility] 12-08-2023 09:58-0500 SaO2% (BldA) [Mass fraction] 96 % Narinder Palomo MD Work Phone: [facility] 12-08-2023 09:58-0500 Systolic blood pressure 158 mm[Hg] Narinder Palomo MD Work Phone: [facility] 12-02-2023 10:52-0500 Body height 162.6 cm Columba Gonzalez MD Work Phone: [facility] 12-02-2023 10:52-0500 Body mass index (BMI) [Ratio] 34.33 kg/m2 Columba Gonzalez MD Work Phone: [facility] 12-02-2023 10:52-0500 Body weight 90.72 kg Columba Gonzalez MD Work Phone: [facility] 12-02-2023 10:52-0500 Diastolic blood pressure 92 mm[Hg] Columba Gonzalez MD Work Phone: [facility] 12-02-2023 10:52-0500 Heart rate 95 /min Columba Gonzalez MD Work Phone: [employer] 12-02-2023 10:52-0500 SaO2% (BldA) [Mass fraction] 96 % Columba Gonzalez MD Work Phone: [facility] [facility] 12-02-2023 10:52-0500 Systolic blood pressure 160 mm[Hg] Columba Gonzalez MD Work Phone: [facility] [facility] 05-29-2022 14:30-0400 Body height 162.56 cm Krishan Madrid Other [employer] Other 05-29-2022 14:30-0400 Body mass index (BMI) [Ratio] 35.36 kg/m2 Krishan Madrid Other [employer] Other 05-29-2022 14:30-0400 Body weight 93.44 kg Krishan Madrid Other [employer] Other 04-03-2021 10:30-0400 Diastolic blood pressure 66 mm[Hg] Jairo Fisher MD Work Phone: [employer] Work Phone: 04-03-2021 10:30-0400 Heart rate 75 /min Jairo Fisher MD Work Phone: [employer] Work Phone: 04-03-2021 10:30-0400 Respiratory rate 18 /min Jairo Fisher MD Work Phone: [employer] Work Phone: 04-03-2021 10:30-0400 SaO2% (BldA) [Mass fraction] 94 % Jairo Fisher MD Work Phone: [employer] Work Phone: 04-03-2021 10:30-0400 Systolic blood pressure 118 mm[Hg] Jairo Fisher MD Work Phone: [employer] Work Phone: 04-03-2021 10:09-0400 Body temperature 97.39 [degF] Jairo Fisher MD Work Phone: [employer] Work Phone: 04-03-2021 08:45-0400 Body mass index (BMI) [Ratio] 36.05 kg/m2 Jairo Fisher MD Work Phone: [employer] Work Phone: 04-03-2021 08:45-0400 Body weight 95.25 kg Jairo Fisher MD Work Phone: [employer] Work Phone: 03-13-2021 14:25-0400 Body height 162.6 cm Jairo Fisher MD Work Phone: [employer] Work Phone: Encounters Encounter Date Encounter Type Care Provider Facility Start: 04-04-2024 End: 04-05-2024 [facility] Start: 03-02-2024 End: 03-03-2024 Emergency department patient visit [facility] Start: 03-01-2024 End: 03-02-2024 Emergency department patient visit BRISA Dontae MUKHERJEE [facility] Start: 01-18-2024 End: 01-18-2024 Emergency department patient visit GLORIA Santana TAYLOR [facility] Start: 12-12-2023 ambulatory Facility:[facility] Start: 12-10-2023 Telephone encounter Narinder villeda MD Work Phone: [facility] Comment on above: Sleep Lab (PSG) Start: 12-08-2023 End: 12-08-2023 ambulatory NARINDER PALOMO [facility] Start: 12-08-2023 End: 12-08-2023 Office outpatient new 45 minutes Narinder Palomo MD Work Phone: [facility] Comment on above: Pulmonary nodule (Pr imary Dx); HERMILA (obstructive sleep apnea); Obesity (BMI 30-39.9) Start: 12-02-2023 End: 12-02-2023 Office outpatient visit 15 minutes David Ybarra MD Work Phone: [facility] Comment on above: Other chest pain (Pr imary Dx); Essential hypertension Start: 12-02-2023 End: 12-02-2023 ambulatory [facility] Start: 11-18-2023 ambulatory [facility] Start: 10-26-2023 End: 10-27-2023 Emergency department patient visit JENI Barbosa [facility] Start: 10-21-2023 End: 10-21-2023 ambulatory KAYLA H DICKSON Not Available Start: 09-28-2023 End: 09-29-2023 Emergency department patient visit BRUCE Mcgarry [facility] Start: 09-28-2023 End: 09-28-2023 Emergency department patient visit [facility] Start: 09-24-2023 End: 09-25-2023 Emergency department patient visit HERMILO Dimas [facility] Start: 05-15-2023 End: 05-16-2023 ambulatory HANNAH Ponce [facility] Start: 01-05-2023 End: 01-05-[address] LARISA WORRELL . Facility: Start: 05-29-2022 End: 05-29-2022 ambulatory Krishan Madrid Other [facility] [employer] Other Start: 05-29-2022 Office outpatient vi sit 15 minutes Krishan Madrid [facility] Neuro[facility] Start: 04-18-2022 End: 04-18-2022 Subsequent hospital visit by physician Gloria Taylor DO Work Phone: [facility] Start: 04-10-2022 End: 04-11-[address] MOSS MISSergio Facility:[facility]1 Start: 03-26-[address] MOSS MISC Facility :[facility] Start: 02-11-2022 End: 02-12-[address] MOSS MISC Facility:[facility] Start: 04-03-2021 End: 04-03-2021 Subsequent hospital visit by physician Jairo Fisher MD Work Phone: [facility] Start: 09-07-2020 End: 09-07-2020 Patient encounter procedure STAFF, [facility] Start: 12-06-2019 End: 12-06-2019 Subsequent hospital visit by physician Jeni Antonio [facility] Comment on above: Encounter for well w domonique exam with routine gynecological exam Start: 07-14-2019 End: 07-15-2019 Evaluation and management of inpatient JUANJOSE J JIMENES CARMELA Facility:[facility] Start: 07-02-2019 End: 07-03-2019 [facility] Start: 12-30-2018 End: 12-31-2018 Patient encounter procedure [facility] Facility:[facility] Start: 12-08-2018 End: 12-09-2018 Patient encounter procedure JUAN COOKIE CARMELA Facility:[facility] Start: 06-15-2018 Patient encounter status Abdulaziz Gonzalez MD Work Phone: [facility] Start: 12-22-2017 End: 12-23-2017 Ambulatory DEFAULT PHYSICIAN Facility:[facility] Start: 07-19-2013 End: 05-04-2020 Patient encounter status Jairo Fisher MD Work Phone: [facility] Procedures Date Procedure Procedure Detail Performing [...] DTaP,Tdap and Td Vaccines (2 - Tdap) [facility] Start: 06-14-2026 DTaP/Tdap/Td vaccine (2 - Tdap) DTaP/Tdap/Td vaccine (2 - Tdap) [facility] Start: 04-03-2026 Screening for malignant neoplasm of colon [facility] Start: 12-07-2024 Adult BMI Screening Adult BMI Screening [facility] Start: 12-07-2024 Tobacco Screening Tobacco Screening [facility] Start: 12-02-2024 Adult BMI Screening Adult BMI Screening [facility] Start: 12-02-2024 Tobacco Screening Tobacco Screening [facility] Start: 01-14-2024 Adult BMI Follow Up Plan Adult BMI Follow Up Plan [facility] Start: 12-08-2023 End: 12-08-2023 Patient encounter procedure 12/08/2023 10:00 AM EST Office Visit [facility] [address] [place] [address] Narinder Palomo MD [address] [place] [address] [facility] Start: 06-06-2023 COVID-19 Vaccine ( season) COVID-19 Vaccine ( season) [facility] Start: 06-22-2022 Depression Screening Depression Screening [facility] Start: 06-06-2022 Influenza vaccination Flu vaccine (#1) [facility] Start: 04-04-2022 Depression Screen Depression Screen [facility] Start: 03-15-2022 Screening for malignant neoplasm of breast Breast cancer screen SARAY AUSTIN [employer] Start: 06-06-2021 Influenza vaccination Flu vaccine (Season Ended) [employer] Phone: Start: 04-14-2021 Diabetic retinal exam Diabetic retinal exam [employer] Phone: Comment on above: Postponed from 01/11/1960 (Not Indicated ) Start: 04-10-2021 End: 04-10-2021 Patient encounter procedure 04/10/2021 Office Visit General Surgery Jairo Fisher MD [address] [place] [address] [facility] Start: 04-04-2021 End: 04-04-2021 Patient encounter procedure 04/04/2021 Office Visit Obstetrics and Gynecology Inderjit Garcia MD [address] [place] [address] [facility] Start: 04-04-2021 Annual Wellness Visit (AWV) Annual Wellness Visit (AWV) [employer] Phone: Comment on above: Postponed from 03/28/2019 (Not Indicated ) Start: 04-04-2021 Creatinine measurement Creatinine monitoring [employer] Phone: Comment on above: Postponed from 11/19/2018 (Not Indicated ) Start: 04-04-2021 Diabetic foot examination Diabetic foot exam [employer] Phone: Comment on above: Postponed from 01/11/1960 (Not Indicated ) Start: 04-04-2021 Diabetic microalbuminuria test Diabetic microalbuminuria test [employer] Phone: Comment on above: Postponed from 01/11/1968 (Not Indicated ) Start: 04-04-2021 Hemoglobin A1c measurement A1C test (Diabetic or Prediabetic) [employer] Phone: Comment on above: Postponed from 01/11/1960 (Not Indicated ) Start: 04-04-2021 Lipid panel Lipid screen [employer] Phone: Comment on above: Postponed from 01/11/1960 (Not Indicated ) Start: 04-04-2021 Potassium monitoring Potassium monitoring [facility] [employer] Phone: Comment on above: Postponed from 11/19/2018 (Not Indicated ) Start: 03-15-2020 Colon cancer screen colonoscopy Colon cancer screen colonoscopy [place], [place] Start: 03-28-2019 Annual Wellness Visit (AWV) Annual Wellness Visit (AWV) [place] Start: 11-19-2018 Creatinine monitoring Creatinine monitoring [place], [place] Start: 11-19-2018 Potassium monitoring Potassium monitoring [place] Start: 10-11-2017 Breast cancer screen Breast cancer screen [place], [place] Start: 07-14-2017 Pneumococcal 65+ years Vaccine (2 of 2 - PPSV23) Pneumococcal 65+ years Vaccine (2 of 2 - PPSV23) [place] Start: 09-08-2015 Shingles Vaccine (2 of 3) Shingles Vaccine (2 of 3) [place], [place] Start: 2015 DEXA (modify frequency per FRAX score) DEXA (modify frequency per FRAX score) [place] Start: 2015 Fall Risk Screening Fall Risk Screening [facility] Start: 2005 Screening for osteoporosis DEXA (modify frequency per FRAX score) [facility] [employer] Start: 1995 Screening for malignant neoplasm of colon [facility] [employer] Start: 1969 Hepatitis B vaccine (1 of 3 - Risk 3-dose series) Hepatitis B vaccine (1 of 3 - Risk 3-dose series) [place], [place] Start: 01-11-1968 Diabetic foot examination Diabetic Foot Exam [facility] Start: 01-11-1968 Diabetic microalbuminuria test Diabetic microalbuminuria test [place] Start: 01-11-1968 Diabetic retinal exam Diabetic retinal exam [facility] [employer] Start: 01-11-1968 Hepatitis C screening Hepatitis C screen [facility] Start: 01-11-1968 Urine screening for protein Diabetic microalbuminuria test [facility] Start: 1962 COVID-19 Vaccine (1) COVID-19 Vaccine (1) [employer] Phone: Start: 01-11-1960 [object Object] Diabetic foot exam [place], [place] Start: 01-11-1960 A1C test (Diabetic or Prediabetic) A1C test (Diabetic or Prediabetic) [place] Start: 01-11-1960 Diabetic foot examination Diabetic foot exam [facility] [employer] [facility] Start: 01-11-1960 Diabetic retinal exam Diabetic retinal exam [place], [place] Start: 01-11-1960 Hemoglobin A1c measurement A1C test (Diabetic or Prediabetic) [facility] Start: 01-11-1960 Lipid panel Lipids [facility] Start: 01-11-1960 Lipid screen Lipid screen [place], [place] Start: 1955 COVID-19 Vaccine (1) COVID-19 Vaccine (1) [facility] Start: 1950 Annual Wellness Visit (AWV) Annual Wellness Visit (AWV) [facility] [employer] Start: 1950 Glaucoma screening [facility]abetic Ophthalmology [facility]am [facility] Start: 1950 Hepatitis C screen Hepatitis C screen [place], [place] Start: 1950 Hepatitis C screening [facility]atitis C screen [facility]: Start: 1950 Medicare Annual Wellness Visit Medicare Annual Wellness Visit [facility] End: 12-06-2019 Cytopathology procedure, preparation of smear, genital source PAP SMEAR Lab Routine Encounter for well woman exam with routine gynecological exam 1 Occurrences starting 12/06/2019 until 12/06/2019 [facility] [place] Comment on above: 1 Occurrences starting 12/06/2019 until 12/06/2019 End: 04-03-2021 Glucose [Mass/volume] in Serum or Plasma POCT glucose Point of Care Testing STAT One Time for 1 Occurrences starting 04/03/2021 until 04/03/2021 [employer] Phone: Comment on above: One Time for 1 Occurrences starting 03/07 until 04/03/2021 H. PYLORI DETECTION [employer] Phone: Comment on above: Release Upon Ordering for 1 Occurrences starting 04/03/2021 End: 04-03-2021 Protime-INR Protime-INR Lab STAT One Time for 1 Occurrences starting 04/03/2021 until 04/03/2021 [employer] Phone: Comment on above: One Time for 1 Occurrences starting 03/07 until 04/03/2021 End: 12-07-2024 PSG Diagnostic [facility] Routine HERMILA (obstructive sleep apnea) 1 Occurrences starting 12/08/2023 until 12/07/2024 [facility] Work Phone: Comment on above: 1 Occurrences starting 12/08/2023 until 12/07/2024 Surgical Pathology Surgical Path ology Lab Routine Release Upon Ordering for 1 Occurrences starting 04/03/2021 [employer] Phone: Comment on above: Release Upon Ordering for 1 Occurrences starting 04/03/2021 Immunizations Immunization Date Immunization Notes Care Provider Fa nathaniel 07-14-2016 pneumococcal conjuga te vaccine, [facility] [place] Antonio [facility] 06-14-2016 diphtheria, tetanus toxoids and acellular pertussis vaccine [place], [place] 07-14-2015 zoster vaccine, live [place], [place] Payers Date Payer Category Payer Medicare [id number] 2019 Medicare MEDICARE MEDICAR E PART A AND B xxxxxxxxxxx 2019-Present [phone] [place] [address] xxxxxxxxxxx [id number] 2019 Medicare 2018 Unknown 2017 Unknown [id number] 1990 Medicare [id number] 1959 Medicare [id number] 1950 Unknown [id number] 2.16.840.1.581949.3.579.2.196 1950 Unknown [id number] 2.16.840.1.137225.3.579.2.196 1950 Unknown [id number] 2.16.840.1.509078.3.579.2.196 1950 Unknown [id number] 2.16.840.1.064631.3.579.2.196 1950 Unknown [id number] 2.16.840.1.828266.3.579.2.593 1950 Unknown [id number] 2.16.840.1.086362.3.579.2.593 1950 Unknown [id number] 2.16.840.1.367587.3.579.2.593 1950 Unknown [id number] 2.16.840.1.982175.3.579.2.593 1950 Unknown [id number] 2.16.840.1.406836.3.579.2.173 1950 Unknown [id number] 2.16.840.1.918278.3.579.2.125 9 1950 Unknown [id number] 2.16.840.1.354274.3.579.2.128 6 1950 Unknown [id number] 2.16.840.1.116859.3.579.2.128 6 1950 Unknown [id number] 2.16.840.1.408706.3.579.2.128 6 1950 Unknown [id number] 2.16.840.1.150362.3.579.2.128 6 1950 Unknown [id number] 2.16.840.1.349266.3.579.2.128 6 1950 Unknown [id number] 2.16.840.1.915455.3.579.2.128 6 1950 Unknown [id number] 2.16.840.1.583953.3.579.2.128 6 1950 Unknown [id number] 2.16.840.1.037457.3.579.2.128 6 1950 Unknown [id number] 2.16.840.1.572854.3.579.2.128 6 1950 Unknown [id number] 2.16.840.1.714798.3.579.2.128 6 1950 Unknown [id number] 2.16.840.1.350516.3.579.2.128 6 1950 Unknown [id number] 2.16.840.1.927090.3.579.2.128 6 1950 Unknown [id number] 2.16.840.1.911460.3.579.2.128 6 1950 Unknown [id number] 2.16.840.1.751468.3.579.2.128 6 1950 Unknown [id number] 2.16.840.1.131892.3.579.2.128 6 1950 Unknown [id number] 2.16.840.1.157334.3.579.2.128 6 Medicaid Self Pay [id number] Self-pay Self Pay [id number] Social History Date Type Detail Facility Start: 12-06-2019 End: 12-24-2022 Tobacco smoking status NHIS Never smoker [place] Start: 12-06-2019 End: 04-18-2022 Alcohol intake Current non-drinker of alcohol (finding) [place], [place] Start: 1950 Sex Assigned At Not on file M [place], [place] Start: 1950 Sex Assigned At Female F [facility] Start: 04-03-2021 End: 12-24-2022 Tobacco use and exposure Never used [employer] Exposure to SARS-CoV -2 (event) Not sure [employer] Start: 10-28-2020 End: 12-02-2023 Sex Assigned At [facility] [employer] [facility] Start: 12-02-2023 End: 12-08-2023 Alcohol intake Ex-drinker (finding) [facility] [employer] [facility] Start: 10-28-2020 End: 12-02-2023 History of Social function [facility] Adolescent depressio n screening assessment 0 [facility] Medical Equipment Procedure Code Equipment Code Equipment Origin al Text Equipment Identifier Dates Mesh Srg Bard [id number] Hrn Sft Rpl [id number] - [id number] Start: 06-15-2018 Goals Date Patient Goal [...] notes in epic documented in this encounter [facility] 12-10-2023 Telephone encounter Note 3/4 received PSG order 3 patient will call back to schedule, sent letter with main phone number. Order Deferred PSG order and 3/4 Taleb notes in epic [facility] 12-08-2023 History of Presen t illness Narrative Images from the original note were not included. [facility]YS[facility] PULMONARY/SLEEP MEDICINE [address] [address] Subjective: Chief Complaint Pulmonary nodules HPI The patient is 73-year-old female who is here as a new patient. She was referred to us because of abnormal CT scan of the chest. She hadCT scan of the chest that was done in [facility] on 11/18/2023 showed multiple bilateral lung nodules, tiny, largest 4 mm. Patient denies any shortness a breath. Patient never smoked. Patient had diagnostic sleep study on 02/01/2021 The apnea-hypopnea index (AHI) is 31.9 ([facility]) / 14 ([facility]) events per hour, and the [...] Medical History: Diagnosis Date Deep vein thrombosis ([facility]) Diabetes mellitus type 2, controlled ([facility]) GERD (gastroesophageal reflux disease) Hyperlipidemia Hypertension Renal cyst 11/16/2019 Schizophrenia simplex ([facility]) Past Surgical History: Procedure Laterality Date BACK SURGERY 2014 fatty lipoma removed from back BREAST BIOPSY Left 2006 benign CHOLECYSTECTOMY COLONOSCOPY W/ POLYPECTOMY 2014 benign CYSTOSCOPY N/A 08/05/2023 Performed by Seb Aguirre MD at [facility] CYSTOSCOPY N/A 12/01/2018 Performed by Seb Aguirre MD at [facility] HIP SURGERY Left INCISIONAL HERNIA REPAIR 2009, 2016 INJECTION BLOCK EPIDURAL CAUDAL STEROID N/A 06/08/2021 Performed by Km Barba MD at [facility] INJECTION BLOCK EPIDURAL CAUDAL STEROID N/A 04/27/2021 Performed by Km Barba MD at [facility] INJECTION BLOCK NERVE MEDIAL BRANCH: bilat L 4/5 5/1 mbb Bilateral 01/19/2021 Performed by Km Barba MD at [facility] INJECTION BLOCK NERVE MEDIAL BRANCH: Bilat L 4/5 5/1 mbb Bilateral 12/01/2020 Performed by Km Barba MD at [facility] KNEE ARTHROSCOPY Bilateral KNEE SURGERY left total knee RADIOFREQUENCY ABLATION SPINAL: left L 4/5 5/1 Left 03/09/2021 Performed by Km Barba MD at [facility] RADIOFREQUENCY ABLATION SPINAL: right L 4/5 5/1 Right 02/23/2021 Performed by Km Barba MD at [facility] REPAIR OF RECURRENT ABDOMINAL HERNIA WITH BARD SOFT MESH, EXPLANTATION OF OLD MESH, T.A.R. PROCEDURE N/A 06/15/2018 Performed by Jose Vasquez MD at [facility] REPLACEMENT TOTAL KNEE Right VAGINAL HYSTERECTOMY 1977 [...] this note were generated using voice recognition [employer] dictation software. Although every effort was made to ensure the accuracy of this automated vallez filter operator, some errors in vallez filter operator may have occurred. documented in this encounter [facility] [employer] 12-02-2023 History of Presen t illness Narrative Mari Jamison Date of visit: 12/02/2023 Date of : 1950 Age: 73 y.o. Patient Active Problem List Diagnosis Diabetes mellitus ([facility]) Hyperlipidemia Essential hypertension Obesity, Class III, BMI 40-49.9 (morbid obesity) ([facility]) Osteoarthritis of right knee S/P right unicompartmental knee replacement Recurrent ventral hernia Pre-op testing Mixed stress and urge urinary incontinence Severe obesity (BMI 35.0-39.9) with comorbidity ([facility]) Lumbosacral spondylosis without myelopathy Renal cyst Other [...] type 2 diabetes mellitus. miscellaneous medical supply [facility] 1 tablet pseudoephedrine-guaiFENesin (MUCINEX D) 60-600 mg [...] antihypertensives this morning. Systolic blood pressures been 85599 mmHg at home. She actually physically feels well. She has been stressed out about her who has cognitive issues. No orthopnea. No PND. Past Medical History: Diagnosis Date Deep vein thrombosis ([facility]) Diabetes mellitus type 2, controlled ([facility]) GERD (gastroesophageal reflux disease) Hyperlipidemia Hypertension Renal cyst 11/16/2019 Schizophrenia simplex ([facility]) No data recorded No data recorded No data recorded Past Surgical History: Procedure Laterality Date BACK SURGERY 2014 fatty lipoma removed from back BREAST BIOPSY Left 2006 benign CHOLECYSTECTOMY COLONOSCOPY W/ POLYPECTOMY 2014 benign CYSTOSCOPY N/A 08/05/2023 Performed by Seb Aguirre MD at [facility] CYSTOSCOPY N/A 12/01/2018 Performed by Seb Aguirre MD at [facility] HIP SURGERY Left INCISIONAL HERNIA REPAIR 2009, 2016 INJECTION BLOCK EPIDURAL CAUDAL STEROID N/A 06/08/2021 Performed by Km Barba MD at [facility] INJECTION BLOCK EPIDURAL CAUDAL STEROID N/A 04/27/2021 Performed by Km Barba MD at [facility] INJECTION BLOCK NERVE MEDIAL BRANCH: bilat L 4/5 5/1 mbb Bilateral 01/19/2021 Performed by Km Barba MD at [facility] INJECTION BLOCK NERVE MEDIAL BRANCH: Bilat L 4/5 5/1 mbb Bilateral 12/01/2020 Performed by Km Barba MD at [facility] KNEE ARTHROSCOPY Bilateral KNEE SURGERY left total knee RADIOFREQUENCY ABLATION SPINAL: left L 4/5 5/ Left 03/09/2021 Performed by Km Barba MD at [facility] RADIOFREQUENCY ABLATION SPINAL: right L 4/5 5/ Right 02/23/2021 Performed by Km Barba MD at [facility] REPAIR OF RECURRENT ABDOMINAL HERNIA WITH BARD SOFT MESH, EXPLANTATION OF OLD MESH, T.A.R. PROCEDURE N/A 06/15/2018 Performed by Jose Vasquez MD at [facility] REPLACEMENT TOTAL KNEE Right VAGINAL HYSTERECTOMY 1976 [...] normal EF MPI 02/2021 2. Normal coronaries [facility] 2013 3. Normal EF TTE 02/2021 [...] Referring Physician: Gloria Taylor DO [address] [place] [address] documented [facility] this encounter [facility] Evaluation note Encounter Date Diagnosis Assessment [...] an as-needed basis or is symptoms worsen. [employer] Other 06-29-2021 History of Present illness Narrative* [...] a responsible adult. Yes documented in this encounterLive Shuttle Phone: evaluation note* Diagnosis GERD (gastroesophageal reflux disease)- Primary Esophageal reflux documented in this encounter [employer] Phone: evaluation note* Diagnosis Other chest pain- Primary Essential hypertension Unspecified essential hypertension documented in this encounter [employer] SystemEvaluation note* Diagnosis Pulmonary nodule- Primary Other diseases of lung, not elsewhere classified HERMILA (obstructive sleep apnea) Obstructive sleep apnea (adult) (pediatric) Obesity (BMI 30-39.9) documented in this encounter [facility] SystemHistory general Narrative - Reported* Type Description [...] Surgical History hysterectomy Hospitalization History See Sx [employer] Other Hospital Discharge instructions* Instructions* Rimma Monroe [...] the nearest Emergency Room. documented in this encounter[facility] HospitalAn[facility] Work Phone: InstructionsNot on filedocumented in this encounter [facility] SystemInstructionsNot on filedocumented in this encounter [facility] SystemInstructionsNot on filedocumented in this encounter [facility] System Summary Purpose Family History No Family History Records FoundNo Family History Records FoundNo Family History Records FoundNo Family History Records FoundNo Family History Records FoundNo Family History Records FoundNo Family History Records FoundNo Family History Records FoundNo Family History Records Found Advance Directives No Advanced Directives Records FoundDocuments on File Type Date Recorded Patient [employer] Expl anation Advance Directives and Living Will Power of Impregnator Electrolytic Capacitors Latest Code Status on File Code Status Date Activated Date Inactivated Comments Full Code 12/21/2012 12:14 PM 12/24/2012 4:06 PM Advance Directive Response Recorded Date/ Time Advance Directives No August 11:18am Documents on File Type Date Recorded 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 Assessments Diagnosis Encounter for well woman exam with routine gynecological exam Chief Complaint and Reason for Visit Chief Complaint z78.0 Reason for Referral Specialty Diagnoses / Procedures Referred By Contsanto t Referred To Contact Diagnoses HERMILA (obstructive sleep apnea) Procedures PSG Diagnostic Narinder Palomo MD [address] [facility] [place] [address] Referral ID Status Reason Start Date Expiration Date V isits Requested Visits Authorized [id number] Pending Review 12/08/2023 12/07/2024 1 1 Additional Source Comments INFORMATION SOURCE (unrecogn ized section and content) DATE CREATED AUTHOR 03/27/2018 [facility] DATE CREATED AUTHOR AUTHOR'S ORGANIZ ATION 09/21/2019 [facility] DATE CREATED AUTHOR AUTHOR'S ORGANIZ ATION 01/08/2023 [facility] DATE CREATED AUTHOR AUTHOR'S ORGANIZ ATION 03/17/2023 [facility] DATE CREATED AUTHOR AUTHOR'S ORGANIZ ATION 05/17/2023 [facility] DATE CREATED AUTHOR AUTHOR'S ORGANIZ ATION 10/22/2023 [facility] DATE CREATED AUTHOR AUTHOR'S ORGANIZ ATION 12/09/2023 [facility] DATE CREATED AUTHOR AUTHOR'S ORGANIZ ATION 12/13/2023 [facility] DATE CREATED AUTHOR AUTHOR'S ORGANIZ ATION 04/05/2024 [facility] Reason for Visit (unrecogniz ed section and content) Status Reason Specialty Diagnoses / Procedures Re ferred By Contact Referred To Contact Diagnoses Symptoms of gastroesophageal reflux Constipation REFLUX SYMPTOMS, CONSTIPATION Procedures VT COLONOSCOPY FLX DX W/COLLJ SPEC WHEN PFRMD VT ESOPHAGOGASTRODUODENOSCOPY TRANSORAL DIAGNOSTIC COLONOSCOPY DIAGNOSTIC EGD ESOPHAGOGASTRODUODENOSCOPY Jairo Fisher MD [address] [place] [address] [address] [place] [id number] [facility] Reason Comments Follow-up EST PT F/U 1 YR L/S MS Reason Comments New Patient CT: 4PFT: n oneSOB: noneTobacco Use: neverStarted Tobacco: n/aHx Sleep Apnea: Yes, not currently on PAP Therapy, patient states she does not want to be on PAP therapyPS02/01/2021 Specialty Diagnoses / Procedures Referred By Tommy t Referred To Contact Pulmonary Medicine Diagnoses Pulmonary nodule Gloria Taylor, DO [address] [facility] [address] [facility] [address] [place] [address] Referral ID Status Reason Start Date Expiration Date Visits Requested Visits Authorized [id number] Pending Review Specialty Services Required 11/10/2023 11/09/2024 [...] Pre-procedure(GI) 0924 (New Bag - Prov ider: Rdaha Adamson APRN - PROJECT FINANCE ANALYST)1002 (Stopped - Provider: Radha Adamson APRN - PROJECT FINANCE ANALYST)1035 (Stopped - Provider: Rimma Monroe RN) PRN [...] Care Teams (unrecognized sec tion and content) Side Laster Tack Relationship Specialty Start Date End Date Gloria Taylor DO [address] [place] [address] PCP - General Family Medicine 05/09/21 Side Laster Tack Relationship Specialty Start Date End Date Gloria Tayolr DO [address] [place] [address] PCP - General Family Medicine 03/28/23 Side Laster Tack Relationship Specialty Start Date End Date Gloria Taylor DO [address] [place] [id number] PCP - General Family Medicine 03/28/23 Side Laster Tack Relationship Specialty Start Date End Date Gloria Taylor DO [address] [place] [id number] PCP - General Family Medicine 03/28/23 FOR [...] BE BASED ON THE PRIMARY CLINICAL RECORDS. [employer] provides no warranty or guarantee of the accuracy or completeness of information in this document.
[2024-05-09 17:05] VITALS: BP 181/91; PULSE 90; TEMP 36.9; O2SAT 96; BMI 32.6
--- NOTE | 2024-05-09 17:26 | ED.GENADUL1 ---
HPI HPI - General Adult General Stated complaint: LE PAIN Time Seen by Provider: 05/09/24 17:00 Source: patient Mode of arrival: walk-in History of Present Illness HPI narrative: Patient is a 74-year-old female who is well-known to this emergency department who returns to the ER for continuing pain in the right low back into the right hip. I saw this patient 1 month ago for the same symptoms, she demanded a CT at that time and she had a CT of the abdomen and pelvis that did not show any acute process. She has also been to her primary care provider in the last 2 weeks for pain radiating from the low back into the right hip and down the leg into the knee. No peripheral paresthesias or urinary symptoms, no incontinence. She has also been seen by her environmental remediation specialist and has an upcoming appointment with her orthopedist for the symptoms. She has not had any new falls. She had x-rays 2 weeks ago in addition to the CT scan at this facility 1 month ago. She is tearful, she asks the same questions multiple times in different ways. She states medication she has been prescribed are not helping. Related Data Home Medications ?Medication ?Instructions ?Recorded ?Confirmed atorvastatin 20 mg tablet 20 mg PO DAILY 10/31/23 01/18/24 carvedilol 25 mg tablet 25 mg PO BID 10/31/23 01/18/24 lisinopril 40 mg tablet 40 mg PO DAILY 10/31/23 01/18/24 metformin 500 mg tablet 500 mg PO BID 10/31/23 01/18/24 Previous Rx's ?Medication ?Instructions ?Recorded benzonatate 100 mg capsule 100 mg PO TID PRN cough #20 caps 03/04/24 doxycycline hyclate 100 mg capsule 100 mg PO BID 10 days #20 caps 03/04/24 loratadine 5 mg-pseudoephedrine ER 1 tab PO Q12H PRN nasal congestion 03/04/24 120 mg tablet,extended #20 tabs release,12hr (Claritin-D 12 Hour) methocarbamol 750 mg tablet 750 mg PO TID PRN pain #20 tabs 04/09/24 tramadol 50 mg tablet 50 mg PO Q4H PRN pain 4 days #15 04/09/24 tabs gabapentin 100 mg capsule 100 mg PO BID #10 caps 05/09/24 Allergies Allergy/AdvReac Type Severity Reaction Status Date / Time honey Allergy Severe Swelling Verified 05/09/24 17:15 of Lip/Tongue/Throat Penicillins Allergy Severe Swelling Verified 05/09/24 17:15 of Lip/Tongue/Throat Opioid HPI Opioid Management Most Recent Opioid Data: No Data to Display Review of Systems ROS Constitutional Denies: fever or chills Ears, nose, mouth, and throat Denies: throat pain Cardiovascular Denies: chest pain Respiratory Denies: shortness of breath Gastrointestinal Denies: abdominal pain, nausea or vomiting Musculoskeletal Reports: back pain, extremity pain and limited range of motion; Denies: neck pain Integumentary/Breast Denies: rash Neurological Denies: headache Hematologic/Lymphatic Denies: easy bruising or easy bleeding PFSH PFS Social History Smoking status: Never smoker Exam Narrative Exam Narrative: Gen.: Awake, alert, in no distress Head: Normocephalic, atraumatic ENT: Moist mucous membranes Respiratory: No respiratory distress Back: Diffuse tenderness of the right low back and right posterior hip with no bony point tenderness of the lumbar spine, no obvious deformity or step-off Extremities: Moves extremities equally, no injuries noted; normal dorsiflexion and plantarflexion of the lower extremities with no decrease in sensation to the medial thighs. Patient is ambulatory Psych: Normal mood and affect Neuro: No focal neuro deficit Skin: Warm, dry, intact Constitutional Vital Signs, click to edit/add: Last Vital Signs Temp 98.4 F 05/09/24 17:05 Pulse 90 05/09/24 17:05 Resp 16 05/09/24 17:05 BP 181/91 H 05/09/24 17:05 Pulse Ox 96 05/09/24 17:05 O2 Del Method Room Air 05/09/24 17:05 Course Vital Signs Vital signs: Vital Signs Temperature 98.4 F 05/09/24 17:05 Pulse Rate 90 05/09/24 17:05 Respiratory Rate 16 05/09/24 17:05 Blood Pressure 181/91 H 05/09/24 17:05 Pulse Oximetry 96 05/09/24 17:05 Oxygen Delivery Method Room Air 05/09/24 17:05 Temperature 98.4 F 05/09/24 17:05 Pulse Rate 90 05/09/24 17:05 Respiratory Rate 16 05/09/24 17:05 Blood Pressure 181/91 H 05/09/24 17:05 Pulse Oximetry 96 05/09/24 17:05 Oxygen Delivery Method Room Air 05/09/24 17:05 Medical Decision Making MDM Narrative Medical decision making narrative: Patient has been imaged in this facility as well as as an outpatient. She has an orthopedist who has already seen her for the symptoms as well as her primary care provider and likely multiple emergency departments. She has no focal neurodeficits, no new falls or complaints today. She was given lengthy education and reassurance. Gabapentin twice daily given for home for pain control. She was strongly encouraged to follow-up with her orthopedist as we do not have any other evaluations available for this patient in the emergency department. Return to the ER if symptoms change or worsen SUPERVISED APC VISIT, PHYSICIAN ATTESTATION: Based on the medical record the care appears appropriate. ? Medical Records Medical records reviewed: Yes I reviewed the patient's medical records Discharge Plan Discharge Stand Alone Forms: Portal Instructions Clinical Impression: Right sided sciatica, Acute pain of right hip Patient Disposition: Home, Self-Care Time of Disposition Decision: 17:24 Condition: Good Prescriptions / Home Meds: New gabapentin 100 mg capsule 100 mg PO BID Qty: 10 0RF No Action doxycycline hyclate 100 mg capsule 100 mg PO BID 10 Days Qty: 20 0RF benzonatate 100 mg capsule 100 mg PO TID PRN (Reason: cough) Qty: 20 0RF Claritin-D 12 Hour 5-120 mg tablet extended release 12 hr 1 tab PO Q12H PRN (Reason: nasal congestion) Qty: 20 0RF tramadol 50 mg tablet 50 mg PO Q4H PRN (Reason: pain) 4 Days Qty: 15 0RF Rx Instructions: DX: M54.5 methocarbamol 750 mg tablet 750 mg PO TID PRN (Reason: pain) Qty: 20 0RF metformin 500 mg tablet 500 mg PO BID lisinopril 40 mg tablet 40 mg PO DAILY atorvastatin 20 mg tablet 20 mg PO DAILY carvedilol 25 mg tablet 25 mg PO BID Print Language: Qatari Instructions: Sciatica (ED), Back Pain (ED) Additional Instructions: YOU NEED TO FOLLOW UP WITH YOUR ORTHOPEDIC DOCTOR Referrals: Gloria Omalley [Primary Care Provider] - 1 week
== END 2024-05-09 17:46 | disposition home or self-care (01) ==
PROVIDERS: Emergency Provider Emergency Medicine; PCP Family Medicine
DX: M25.551 Pain in right hip (principal); M54.41 Lumbago with sciatica, right side
CPT/HCPCS: 99283

== ENCOUNTER 2024-07-26 12:10 | Outpatient (OUT) | payer MEDICARE, SELFPAY ==
--- OUTSIDE RECORDS SUMMARY | 2024-07-26 12:15 | XMS_ITS | CCD ---
Author Organization [facility] Care Team Providers Care Oyster Cultivator Name Role Phone PHYSICIAN, DEFAULT Unavailable Unavailable PHYSICIAN, DEFAULT Unavailable Unavailable QUTEISH, VEEDA O Unavailable Unavailable CARMELAJUAN DOLAN Admitting Unavailabl JUAN Davey Attending Unavailabl e Suzie Mota Primary Care Unavailable Juan, Ceceilia Consulting Unavailable Juan, Ceceilia Consulting Unavailable Juan, Ceceilia Consulting Unavailable RAMONAFARIDA MATA Consulting Unavailable KUMARALINGAM AMANDA Consulting Unavailabl e BV, Physician - Emergency Consulting Briseida Boateng Consulting Unavailable Drew Soriano Consulting Unavailable JUAN CASEY Attending Unavailabl e Suzie Mota Primary Care Unavailable SUZIE MOTA Consulting Unavailable JUAN CASEY Admitting Unavailabl e CARMELA, JUAN JIMENES Attending Unavailabl e Suzie Mota Primary Care Unavailable KOKI MARQUEZ Consulting Unavailable BV, Physician - Emergency Consulting Briseida Boateng Consulting Unavailable Koki Marquez Consulting Unavailable Drew Soriano Consulting Unavailable JUAN CASEY Attending Unavailabl e Suzie Mota Primary Care Unavailable SUZIE MOTA Consulting Unavailable Jeni Antonio Primary Care Provider NON, STAFF, Primary Care Provider UnavailKrishan Stacy Attending Provider Unavailable Primary Care Provider Unavailabl e Gloria Taylor DO Primary Care Provider Krishan Madrid Unavailable RIDGEC, DR MOSS Primary Care Unavailable TIMMIS, DR GARZA Admitting Unavailable TIMMIS, DR GARZA Attending Unavailable MISC, DR MOSS Primary Care Unavailable TIMMIS, DR GARZA Admitting Unavailable TIMMIS, DR GARZA Attending Unavailable TIMMIS, DR GARZA Consulting Unavailable MISC, DR MOSS Primary Care Unavailable TIMMIS, DR GRAZA Admitting Unavailable TIMMIS, DR GARZA Attending Unavailable HAY ., DR PERES Attending Unavailable RUMSCHLAG, GLORIA Primary Care Unavailable GRECHNY ., JUSTIN NIÑO Consulting Unavailabl e HAY ., DR PERES Admitting Unavailable PENDLETONSUSAN GAMBOA Consulting Unavailable HANNAH SOLER Referring Unavailable RUMSCHLAG, GLORIA Primary Care Unavailable TIMMIS, KAYLA H Attending Unavailable Rumschlag DO, Gloria K Primary Care Provider BRUCE GODWIN Attending Unavailable BRUCE GODWIN Referring Unavailable RUMSCHLAG, GLORIA K Primary Care Unavailable RUMSCHLAG, GLORIA K Primary Care Unavailable LINDY VILLATORO Attending Unavailable MUKHERJEE, BRISA L Primary Care Unavailable IRENADELMALYNN Attending Unavailable IRENA, LYNN Attending Unavailable IRENA LYNN Referring Unavailable MUKHERJEE, BRISA L Primary Care Unavailable MUKHERJEE, BRISA L Primary Care Unavailable SAMANTHA CERDA Attending Unavailable SAMANTHA CERDA Attending Unavailable BREWISKETANSAMANTHA Referring Unavailable MUKHERJEE, BRISA L Primary Care Unavailable JUAN CASEY Referring Unavailable MUKHERJEE, BRISA L Primary Care Unavailable MARINO WILKERSON Attending Unavailable SERVICES, [facility] Primary Care Unava ilable SERVICES, [facility] Primary Care Unava ilable DHARA SNELL Attending Unavailable SERVICES, [facility] Primary Care Unava ilable OLEG FERNANDES Referring Unavailable SERVICES, [facility] Primary Care Unava ilable OLEG FERNANDES Referring Unavailable SERVICES, [facility] Primary Care Unava ilable SERVICES, [facility] Primary Care Unava ilable COLUMBA NOLAN Attending Unavailable SERVICES, [facility] Primary Care Unava ilable JOSE MARIA MCFARLANE Attending Unavailable RUMSCHLAG, GLORIA K Primary Care Unavailable HERMILO CUMMINGS Attending Unavailable ZOILA, HERMILO Attending Unavailable CUMMINGSHERMILO Referring Unavailable RUMSCHLAG, GLORIA K Primary Care Unavailable RUMSCHLAG, GLORIA K Primary Care Unavailable BRUCE GODWIN Attending Unavailable RUMSCHLAG, GLORIA K Primary Care Unavailable JENI CATALAN Attending Unavailable JENI CATALAN Referring Unavailable RUMSCHLAG, GLORIA K Primary Care Unavailable COLUMBA GONZALEZ Attending Unavailable RUMSCHLAG, GLORIA K Referring Unavailable RUMSCHLAG, GLORIA K Primary Care Unavailable NARINDER PALOMO Attending Unavailable RUMSCHLAG, GLORIA K Referring Unavailable RUMSCHLAG, GLORIA K Primary Care Unavailable CORYSARAHTIBURCIO Oneal Attending Unavailable MARINO WILKERSON Referring Unavailable SERVICES, [facility] Primary Care Unava ilable RUMSCHLAG, GLORIA K Referring Unavailable RUMSCHLAG, GLORIA K Primary Care Unavailable Unavailable Unavailable Unavailable Allergies Allergy Classification Reported Allergen(s) Allergy Type Date of Onset Reaction(s) Facility Penicillins (antibiotic) (1 source) Penicillins Drug Allergy 3 Hives, Nausea And Vomiting [facility] (5 sources) Honey; Translations: [Unknown] Drug allergy (disorder) 0 [facility] (6 sources) Penicillins; Translations: [penicillins] Drug allergy (disorder) 9 Hives, Nausea And Vomiting [facility] (6 sources) Honey Propensity to adverse reactions to drug 3 Swelling [place] (1 source) Penicillins Propensity to adverse reactions to drug 3 Hives, Nausea And Vomiting [place] (1 source) Penicillin Drug Allergy Unknown [employer] Other (3 sources) Penicillins Propensity to adverse reactions to drug 7 Hives, Nausea [facility] (5 sources) Perflutren; Translations: [PERFLUTREN LIPID MICROSPHERES] Drug Allergy 1 [facility] Phone: Medications Current Medications Medication Drug Class(es) Dates Sig (Normalized) Sig (Original) 8 hr acetaminophen 650 mg extended release oral tablet (6 sources) acetaminophen (T YLENOL ARTHRITIS) 650 mg 8 hr tablet as needed. 0 Active take 2 tablets by [facility] every six hours as needed for pain [...] Start: 03-15-2021 take 1 tablet by teresa twice daily carvedilol (COREG) 25 MG tablet [...] Date Documented Da te Episodic/Chronic Abdominal hernia (8 sources) Diaphragmatic hernia without obstruction or gangrene; Translations: [Recurrent hernia of anterior abdominal wall] Onset: 8 06-15-2018 Episodic Abdominal pain (2 sources) Abdominal pain; Translations: [Unspecified abdominal pain] Onset: 4 Episodic Diabetes mellitus without complication (7 sources) [...] spondylolisthesis; Translations: [Spondylolisthesis, lumbar region] Episodic Other acquired deformities (2 sources) Spondylolisthesis, lumbar region; Translations: [Spondylolisthesis, lumbar region] Onset: 2 Resolved: 2 Episodic Other aftercare (1 source) long-term (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 hypoglycemic drugs; Translations: [SKILLED NURSING USE ORAL HYPOGLYCEMIC DX] Onset: 3 Episodic Other aftercare (1 source) Other intermediate designer (current) drug therapy; Translations: [OTH DOOR CLOSER CURRENT DRUG THERAPY] Onset: 3 Episodic Other [...] Fibromyalgia; Translations: [FIBROMYALGIA] Onset: 3 Episodic Other connective tissue disease (1 source) Pain in lower limb Onset: 4 Episodic Other gastrointestinal disorders (4 sources) Dysphagia; Translations: [Dysphagia, unspecified] Onset: 4 03-15-2015 Episodic Other gastrointestinal disorders (1 source) Pain associated with defecation; Translations: [Other specified symptoms and signs involving the digestive system and abdomen] Episodic Other gastrointestinal disorders (1 source) Other fecal abnormalities; Translations: [Other fecal abnormalities] Onset: 4 Episodic Other lower respiratory disease (1 source) Nodule of lung; Translations: [Solitary pulmonary nodule] 12-08-2023 Episodic Other nervous system disorders (1 source) Other chronic pain; Translations: [Other chronic pain] Onset: 4 Chronic Other non-traumatic joint disorders (1 source) Pain in right knee; Translations: [Pain in right knee] Onset: 4 Episodic Other non-traumatic joint disorders (1 source) Knee pain Onset: 4 Episodic Other non-traumatic joint disorders (1 source) Pain in right hip; Translations: [Pain in right hip] Onset: 4 Episodic Other nutritional; endocrine; and [...] Translations: [Obesity, unspecified] Onset: 1 Chronic Other screening for suspected conditions (not mental disorders or infectious disease) (1 source) Encounter for screening, unspecified; Translations: [Encounter for screening, unspecified] Onset: 4 Episodic Paralysis (1 source) Cauda equina syndrome; Translations: [Cauda equina syndrome] Onset: 4 Chronic Residual codes; unclassified (5 sources) Obstructive [...] 3 Episodic Residual codes; unclassified (1 source) Asymptomatic menopausal state; Translations: [Asymptomatic menopausal state] Onset: 4 Episodic Schizophrenia and other psychotic disorders (1 source) Schizophrenia, unspecified; Translations: [SCHIZOPHRENIA UNSPECIFIED] Onset: 3 Chronic Spondylosis; intervertebral disc disorders; other back problems (7 sources) Lumbosacral spondylosis without myelopathy; Translations: [Spondylosis without myelopathy or radiculopathy, lumbosacral region] Onset: 9 02-06-2021 Chronic Spondylosis; intervertebral disc disorders; other back problems (9 sources) Spinal stenosis of lumbar region; Translations: [Spinal stenosis, lumbar region with neurogenic claudication] Onset: 2 Resolved: 2 Episodic Unclassified (2 sources) Patient encounter status; Translations: [Encounter for well woman exam with routine gynecological exam] Onset: 3 07-19-2013 Unclassified (1 source) DOOR CLOSER INJECT NONINSULN ANTIDIAB; Translations: [SKILLED NURSING INJECT NONINSULN ANTIDIAB] Onset: 3 Unclassified (1 source) Low back pain, unspecified; Translations: [Low back pain, unspecified] Onset: 4 Unclassified (1 source) Black or Bloody Stool Onset: 4 Unclassified (1 source) Other intervertebral disc degeneration, lumbar region without mention of lumbar back pain or lower extremity pain; Translations: [Other intervertebral disc degeneration, lumbar region without mention of lumbar back pain or lower extremity pain] Onset: 4 Unclassified (1 source) Acute candidiasis of vulva and vagina; Translations: [Acute candidiasis of vulva and vagina] Onset: 4 Unclassified (1 source) Vaginal Itching Onset: 4 Unclassified (1 source) Generalized Body Aches Onset: 4 Unclassified (1 source) Cough, unspecified; Translations: [Cough, unspecified] Onset: 4 Unclassified (1 source) Rash Onset: 4 Unclassified (1 source) Skin Rash Onset: 4 Unclassified (1 source) Cold Like Symptoms Onset: 3 Unclassified (1 source) New Patient Onset: 4 Past or Other Problems Problem Classification Problem Date Documented Da te Episodic/Chronic Cardiac dysrhythmias (5 sources) Tachyarrhythmia ; Translations: [Tachycardia, unspecified] Onset: 8 04-04-2020 Episodic Inflammatory diseases of female pelvic organs (2 sources) Acute vaginitis; Translations: [Acute vaginitis] Onset: 0 04-04-2020 Episodic Mood disorders (3 sources) Mood disorders Onset: 1 06-22-2021 Nonspecific chest pain (8 sources) Chest pain; Translations: [Other chest pain] Onset: 0 12-02-2023 Episodic Other diseases of kidney and ureters (3 sources) Cyst of kidney; Translations: [Cyst of kidney, acquired] Onset: 0 05-22-2021 Episodic Other gastrointestinal disorders (3 sources) Alteration in bowel elimination; Translations: [Change in bowel habit] Onset: 4 03-15-2015 Episodic Other inflammatory condition of skin (1 source) Erythema intertrigo; Translations: [Erythema intertrigo] Onset: 4 Episodic Other lower respiratory disease (3 sources) Dyspnea; Translations: [Shortness of breath] Onset: 0 Resolved: 4 12-02-2023 Episodic Other lower respiratory disease (1 source) Cough Onset: 4 Episodic Other lower respiratory disease [...] of digestive tract] Onset: 0 04-04-2020 Episodic Residual codes; unclassified (1 source) Pain, unspecified; Translations: [Pain, unspecified] Onset: 4 Episodic Superficial injury; contusion (4 sources) Contusion of right front wall of thorax, initial encounter; Translations: [Contusion of right back wall of thorax, initial encounter] Onset: 3 Episodic Urinary tract infections (3 sources) Recurrent urinary tract infection; Translations: [Urinary tract infection, site not specified] Onset: 3 08-05-2023 Episodic Results Test Name Value Interpretation Reference Range Facility CBC AND AUTO DIFFon 07-11-20 24 ABSOLUTE BASOPHIL 0.1 X10E9/L Normal 0.0-0.2 [facility] Comment on above: Performed By: #### B MP, CBCA, 07221-3 #### [facility] ([id number]) [address] [place] [address] 23463 ABSOLUTE NEUTROPHIL 3.2 X10E9/L Normal 1.5-6.6 [facility] Comment on above: Performed By: #### B MP, CBCA, 00498-9 #### [facility] ([id number]) [address] [place] [address] 54496 Basophils/100 WBC (Bld) 1.2 % Normal [facility] Comment on above: Performed By: #### B MP, CBCA, 18096-6 #### [facility] ([id number]) [address] [place] [address] 12846 Eosinophils (Bld) [#/Vol] 0.2 10*3/uL Normal 0.0-0.4 [facility] Comment on above: Performed By: #### B ALAN, CBCA, 01500-1 #### [facility] ([id number]) [address] [place] [address] 45988 Eosinophils/100 WBC (Bld) 2.6 % Normal [facility] Comment on above: Performed By: #### B ALAN, CBCA, 52294-5 #### [facility] ([id number]) [address] [place] [address] 60721 Erythrocyte distribution wid th (RBC) [Ratio] 13.5 % Normal 11.5-15.0 [facility] Comment on above: Performed By: #### B ALAN, CBCA, 34820-7 #### [facility] ([id number]) [address] [place] [address] 94612 Hematocrit (Bld) [Volume fraction] 40.1 % Normal 35-47 [facility] Comment on above: Performed By: #### B ALAN, CBCA, 63856-6 #### [facility] ([id number]) [address] [place] [address] 20531 Hemoglobin (Bld) [Mass/Vol] 13.1 g/dL Normal 11.7-15. 5 [facility] Comment on above: Performed By: #### B ALAN, CBCA, 86636-8 #### [facility] ([id number]) [address] [place] [address] 08840 Lymphocytes (Bld) [#/Vol] 2.2 10*3/uL Normal 1.0-3.5 [facility] Comment on above: Performed By: #### B ALAN, CBCA, 46210-3 #### [facility] ([id number]) [address] [place] [address] 11841 Lymphocytes/100 WBC (Bld) 35.5 % Normal [facility] Comment on above: Performed By: #### B MP, CBCA, 46108-4 #### [facility] ([id number]) [address] [place] [address] 23657 MCH (RBC) [Entitic mass] 28.6 pg Normal 27-34 [facility] Comment on above: Performed By: #### B ALAN, CBCA, 01927-9 #### [facility] ([id number]) [address] [place] [address] 58080 MCHC (RBC) [Mass/Vol] 32.6 g/dL Normal 32-36 [facility] Comment on above: Performed By: #### B MP, CBCA, 78922-5 #### [facility] ([id number]) [address] [place] [address] 20855 MCV (RBC) [Entitic vol] 88 fL Normal 80-100 [facility] Comment on above: Performed By: #### B MP, CBCA, 75753-1 #### [facility] ([id number]) [address] [place] [address] 33508 Monocytes (Bld) [#/Vol] 0.5 10*3/uL Normal 0-0.9 [facility] Comment on above: Performed By: #### B ALAN, CBCA, 66351-4 #### [facility] ([id number]) [address] [place] [address] 94902 Monocytes/100 WBC (Bld) 8.9 % Normal [facility] Comment on above: Performed By: #### B MP, CBCA, 67118-9 #### [facility] ([id number]) [address] [place] [address] 31690 Neutrophils/100 WBC (Bld) 51.8 % Normal [facility] Comment on above: Performed By: #### B MP, CBCA, 07164-4 #### [facility] ([id number]) [address] [place] [address] 21331 Platelet mean volume (Bld) [Entitic vol] 8.5 fL Normal 7-12 [facility] Comment on above: Performed By: #### B ALAN, CBCA, 55432-0 #### [facility] ([id number]) [address] [place] [address] 10767 Platelets (Bld) [#/Vol] 245 10*3/uL Normal 150-450 [facility] Comment on above: Performed By: #### B ALAN, CBCA, 58923-1 #### [facility] ([id number]) [address] [place] [address] 49500 RBC COUNT 4.58 X10E12/L Normal 3.80-5.20 [facility] Comment on above: Performed By: #### B ALAN, CBCA, 59343-6 #### [facility] ([id number]) [address] [place] [address] 68949 WBC (Bld) [#/Vol] 6.1 10*3/uL Normal 4.0-11.0 [facility] Comment on above: Performed By: #### B ALAN, CBCA, 81158-7 #### [facility] ([id number]) [address] [place] [address] 56849 COMPREHENSIVE METABOLIC PANE Rommel 07-11-2024 Albumin [Mass/Vol] 4.2 g/dL Normal 3.2-5.3 [facility] Comment on above: Performed By: #### B ALAN, CBCA, 46496-4 #### [facility] ([id number]) [address] [place] [address] 18903 ALP [Catalytic activity/Vol] 72 U/L Normal 39-130 [facility] Comment on above: Performed By: #### B ALAN, CBCA, 13956-2 #### [facility] ([id number]) [address] [place] [address] ALT [Catalytic activity/Vol] 24 U/L Normal 0-31 [facility] Comment on above: Performed By: #### B CHEYENNE PHILLIPS, 39506-7 #### [facility] ([id number]) [address] [place] [address], [place] [address] Anion gap [Moles/Vol] 9 mmol/L Normal 5-15 [facility] Comment on above: Performed By: #### B CHEYENNE PHILLIPS, 02672-0 #### [facility] ([id number]) [address] [place] [address] [place] [address] AST [Catalytic activity/Vol] 24 U/L Normal 0-41 [facility] Comment on above: Performed By: #### B CHEYENNE PHILLIPS, 46643-4 #### [facility] ([id number]) [address] [place] [address], [place] [address] Bilirubin [Mass/Vol] 0.5 mg/dL Normal 0.3-1.2 [facility] Comment on above: Performed By: #### B CHEYENNE PHILLIPS, 88166-8 #### [facility] ([id number]) [address] [place] [address], [place] [address] Calcium [Mass/Vol] 9.9 mg/dL Normal 8.5-10.5 [facility] Comment on above: Performed By: #### B CHEYENNE PHILLIPS, 44521-0 #### [facility] ([id number]) [address] [place] [address], [place] [address] Chloride [Moles/Vol] 104 mmol/L Normal 98-109 [facility] Comment on above: Performed By: #### B ALAN CBCA, 41995-4 #### [facility] ([id number]) [address] [place] [address], [place] [address] CO2 [Moles/Vol] 23 mmol/L Normal 22-32 [facility] Comment on above: Performed By: #### B MP, CBCA, 84636-3 #### [facility] ([id number]) [address] [place] [address] 06522 Creatinine [Mass/Vol] 0.74 mg/dL Normal 0.40-1.00 [facility] Comment on above: Result Comment: METH OD TRACEABLE TO IDMS STANDARD Performed By: #### B CHEYENNE PHILLIPS, 74713-5 #### [facility] ([id number]) [address] [place] [address] 41566 GFR/1.73 sq M.predicted marc g non-blacks MDRD (S/P/Bld) [Vol rate/Area] 85 mL/min/{1.73_m2} Normal >59 [facility] Comment on above: Result Comment: Reported eGFR is based on the CKD-EPI 2020 equation that does not use a race coefficient. Performed By: #### B CHEYENNE PHILLIPS, 30743-1 #### [facility] ([id number]) [address] [place] [address] 90736 Glucose [Mass/Vol] 269 mg/dL High 65-99 [facility] Comment on above: Performed By: #### B CHEYENNE PHILLIPS, 88280-2 #### [facility] ([id number]) [address] [place] [address] 78541 Potassium [Moles/Vol] 4.4 mmol/L Normal 3.5-5.0 [facility] Comment on above: Performed By: #### B CHEYENNE PHILLIPS, 81290-5 #### [facility] ([id number]) [address] [place] [address] 39571 Protein [Mass/Vol] 7.9 g/dL Normal 6.0-8.0 [facility] Comment on above: Performed By: #### B CHEYENNE PHILLIPS, 51623-8 #### [facility] ([id number]) [address] [place] [address] 38796 Sodium [Moles/Vol] 136 mmol/L Normal 134-146 [facility] Comment on above: Performed By: #### B CHEYENNE PHILLIPS, 94119-1 #### [facility] ([id number]) [address] [place] [address] 78015 Urea nitrogen [Mass/Vol] 26 mg/dL Normal 5-27 [facility] Comment on above: Performed By: #### B ALAN CBCWing, 43264-9 #### [facility] ([id number]) [address] [place] [address] 62778 Lactate (P sam) [Moles/Vol]o n 07-11-2024 LACTATE W/REFLEX 2.0 mmol/L Normal 0.4-2.0 [facility] Comment on above: Result Comment: Result did not trigger repeat Lactate, re-order if needed. Performed By: #### B CHEYENNE PHILLIPS, 08329-7 #### [facility] ([id number]) [address] [place] [address] 93552 MAGNESIUMon 07-11-2024 Magnesium [Mass/Vol] 1.9 mg/dL Normal 1.8-2.6 [facility] Comment on above: Performed By: #### B CHEYENNE PHILLIPS, 81990-6 #### [facility] ([id number]) [address] [place] [address] 56635 DEVAUGHN FECAL OCCULT BLDon 07-11 Hemoglobin.gastrointestinal Ql (Stl) Negative Normal NEG [facility] Comment on above: Performed By: #### B ALAN CBCA, 43142-9 #### [facility] ([id number]) [address] [place] [address] 64760 DEXA SCAN CENTRAL SKELETALon 07-09-2024 DEXA SCAN CENTRAL SKELETAL DEXA SCAN LAUREANO TRAL SKELETAL CLINICAL INFORMATION: Post-menopausal. , Post menopausal, TECHNIQUE: Dual X-ray Absorptiometry (DXA) was performed. COMPARISON: 02/20/2018 FINDINGS: LUMBAR SPINE (L1-L4): BMD is 1.397 gm/cm2. T-score is 1.6. LEFT FEMORAL NECK: BMD is 1.036 gm/cm2. T-score is 0.0. The estimated 10-year probability for a major osteoporotic fracture (utilizing FRAX) is 7.1% and for a hip fracture is 0.6%. IMPRESSION: The exam is considered to be normal by the National Osteoporosis Foundation guidelines. WHO CLASSIFICATION: Normal: T-score -1.0 or above Osteopenia: T-score -1.1 to < 2.5 Osteoporosis: T-score -2.5 or lower Secondary causes of bone loss should be evaluated if clinically indicated since the etiology of low BMD cannot be determined by BMD measurement alone. The current National Osteoporosis Foundation guide recommends treating patients with FRAX ten year risk scores of greater than or equal to 3% for hip fracture or greater than or equal to 20% for major osteoporotic fracture, to reduce their fracture risk. 69 Finalized by Javed Hager MD on 07/09/2024 2:02 PM Normal [facility] MR LUMBAR SPINE WO CONTon MR LUMBAR SPINE WO CONT MR LUMBAR SPINE WO CONT *ADDENDUM*Addendum : IMPRESSION: Second sentence in the findings section should read: Lumbar vertebral body heights and signal are normal. Alignment normal except for L4-5 and L5-S1 spondylolisthesis. 27 Finalized by Ari Siegel MD on 07/09/2024 12:42 PM Normal [facility] URN MACROSCOPIC NURon 2023 BILIRUBIN DEVAUGHN Negative Normal NEG [facility] Comment on above: Performed By: #### B ALAN, CBCA, 43145-9 #### [facility] ([id number]) [address] [place] [address] 06304 BLOOD/HGB DEVAUGHN Trace Abnormal NEG [facility] Comment on above: Performed By: #### B ALAN, CBCA, 81244-7 #### [facility] ([id number]) [address] [place] [address] 81299 GLUCOSE DEVAUGHN Negative Normal NEG [facility] Comment on above: Performed By: #### B ALAN CBCA, 71002-4 #### [facility] ([id number]) [address] [place] [address] [place] [address] KETONES DEVAUGHN Negative Normal NEG [facility] Comment on above: Performed By: #### B ALAN CBCA, 79160-5 #### [facility] ([id number]) [address] [place] [address] [place] [address] LEUKOCYTE ESTERASE DEVAUGHN Negative Normal NEG Pr [facility] [place] [place] Comment on above: Performed By: #### B ALAN, CBCA, 60339-7 #### [facility] ([id number]) [address] [place] [address] [place] [address] NITRITE DEVAUGHN Negative Normal NEG [facility] Comment on above: Performed By: #### B ALAN CBCA, 19912-5 #### [facility] ([id number]) [address] [place] [address] [place] [address] PH DEVAUGHN 5.5 Normal 5.0-8.5 [facility] Comment on above: Performed By: #### Isabel PHILLIPS CBCA, 26911-1 #### [facility] ([id number]) [address] [place] [address] [place] [address] PROTEIN DEVAUGHN Negative Normal NEG [facility] Comment on above: Performed By: #### B ALAN CBCA, 56801-0 #### [facility] ([id number]) [address] [place] [address] [place] [address] SPECIFIC GRAVITY DEVAUGHN >=1.030 Normal 1.003-[address] [place] [address] Comment on above: Performed By: #### B ALAN CBCA, 33512-5 #### [facility] ([id number]) [address] [place] [address] [place] [address] UROBILINOGEN DEVAUGHN 0.2 eu/dL Normal <1.1 [facility] Comment on above: Performed By: #### B ALAN, CBCA, 78468-7 #### [facility] ([id number]) [address] [place] [address] 88221 URINE CULTUREon 05-30-2024 Bacteria identified Cx Nom (U) CULTURE R ESULTS 10-50,000 ORGANISMS/mL NORMAL UROGENITAL JOE Normal [facility] Comment on above: Performed By: #### B ALAN, CBCA, 91084-7 #### [facility] ([id number]) [address] [place] [address] 77395 URN MACROSCOPIC NURon 2023 BILIRUBIN DEVAUGHN Negative Normal NEG [facility] Comment on above: Performed By: #### B ALAN, CBCA, 20441-7 #### [facility] ([id number]) [address] [place] [address] 73750 BLOOD/HGB DEVAUGHN Negative Normal NEG [facility] Comment on above: Performed By: #### B ALAN, CBCA, 26582-4 #### [facility] ([id number]) [address] [place] [address] [place] [address] GLUCOSE DEVAUGHN Negative Normal NEG [facility] Comment on above: Performed By: #### B ALAN, CBCA, 11544-7 #### [facility] ([id number]) [address] [place] [address] [place] [address] KETONES DEVAUGHN Negative Normal NEG [facility] Comment on above: Performed By: #### B ALAN, CBCA, 69134-7 #### [facility] ([id number]) [address] [place] [address] [place] [address] LEUKOCYTE ESTERASE DEVAUGHN Negative Normal NEG Pr [facility] [place] [place] Comment on above: Performed By: #### B ALAN, CBCA, 68853-1 #### [facility] ([id number]) [address] [place] [address] [place] [address] NITRITE DEVAUGHN Negative Normal NEG [facility] Comment on above: Performed By: #### B ALAN CBCA, 38211-5 #### [facility] ([id number]) [address] [place] [address] 497[address] PH DEVAUGHN 5.5 Normal 5.0-8.5 [facility] Comment on above: Performed By: #### B ALAN, CBCA, 29624-4 #### [facility] ([id number]) [address] [place] [address] PROTEIN DEVAUGHN Negative Normal NEG [facility] Comment on above: Performed By: #### B ALAN CBCA, 74921-0 #### [facility] ([id number]) [address] [place] [address] SPECIFIC GRAVITY DEVAUGHN >=1.030 Normal 1.003-1 .03 5 [facility] Comment on above: Performed By: #### B ALAN CBCA, 62786-5 #### [facility] ([id number]) [address] [place] [address] 400[address] UROBILINOGEN DEVAUGHN 0.2 eu/dL Normal <1.1 [facility] Comment on above: Performed By: #### B ALAN, CBCA, 58203-4 #### [facility] ([id number]) [address] [place] [address] 23012 MR HIP RT WO CONTon 05-26-20 24 MR HIP RT WO CONT MR HIP RT WO CONT MR HIP RT WO CONT CLINICAL INFORMATION: 74 years old Female with severe right hip pain, no known injury. COMPARISON: CT abdomen pelvis dated 07/10/2023. PROCEDURE: Routine MRI right hip was obtained without contrast. Multisequence, multiplanar imaging was obtained. FINDINGS: BONE AND JOINT Hip Joint: In adequate anatomic alignment. Left hip total arthroplasty noted. Joint effusion: Very small right hip effusion. Labrum: Increased signal and irregularity of the superior portion of the labrum which may represent a labral tear. Other bones/marrow: Unremarkable. Visualized SI joints: Normal. CARTILAGE Femoroacetabular cartilage: Severe chondral thinning of the right femoroacetabular joint with severe subchondral edema within the middle and inferior portions of the acetabulum and throughout the femoral head and multiple small subchondral cysts. There is osteophyte of the superior and inferior portions of the femoral head. Femoral head signal changes have somewhat geographic appearance with prominence in the subarticular region. No discrete serpiginous signal changes are present to indicate avascular necrosis although this cannot be excluded. Capsule and ligaments: Normal. MUSCLES AND TENDONS Gluteus Minimus and Medius: Mild tendinosis of the gluteus meniscus tendon without discrete tear. Gluteus medius is unremarkable. Iliopsoas: No significant tendinosis or discrete tear. Hamstrings: No significant tendinosis or discrete tear. Other: Marked increased T2 signal surrounding the obturator externus muscle and tendon without discrete tear. This may represent grade 1 injury or be related to periarticular edema.. OTHER FINDINGS Bursae: No fluid. Nerves: Normal. Soft tissues: Normal. Viscera: No enlarged lymph nodes. No free pelvic fluid. Uterus is surgically absent. 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 * Probable tear of the anterior superior portion of the right hip labrum. * Possible grade 1 injury of the right obturator externus muscle. Approved by Resident Javed Platt DO on 05/26/2024 8:09 AM ISeb MD have personally reviewed the image(s) and agree with and/or edited the report 54 Finalized by Seb Hodges MD on 05/26/2024 2:41 PM Normal [facility] XR SPINE LUMBAR 2 OR 3 VWSon [...] acute fracture or malalignment. Approved by Resident: Cory Tracey MD on 04/04/2024 3:35 AM I, Zana James MD have personally reviewed the image(s) and agree with and/or edited the report 27 Finalized by Zana James MD on 04/04/2024 3:48 AM Normal [facility] XR CHEST 2 VWSon 03-02-2024 XR CHEST [...] Bradford MD on 03/02/2024 12:57 AM Normal [facility] SARS/FLU A+B/RSV by NAAT/Mol ecularon 03-01-2024 SARS/FLU A+B/RSV by NAAT/Molecular FLU A [...] operators who are performing tests using either [employer] or [employer] systems and is limited to laboratories that [...] repeat. Fact Sheet for Healthcare Providers: https://www.fda.go v/Yun Yun/125206/maci nload Fact Sheet for Patients: https://www.fda.go v/Yun Yun/167376/maci nload Normal [facility] Comment on above: Performed By: #### C OVFLR #### [facility] ([id number]) [address] [place] [address], [place] [address] XR RIBS RT 3 VWS W PA [...] on 10/26/2023 11:55 AM Normal [facility] XR SPINE LUMBAR 2 OR 3 VWSon [...] on 10/26/2023 11:56 AM Normal [facility] XR SPINE THORACIC 2 VWSon XR SPINE [...] on 10/26/2023 12:00 PM Normal [facility] XR FACIAL BONES MIN 3 VWSon 09-28-2023 [...] on 09/28/2023 8:37 AM Normal [facility] BASIC METABOLIC PANLon 09-24 Anion gap [Moles/Vol] 9 mmol/L Normal 5-15 [facility] Comment on above: Performed By: #### B ALAN CBCA, 52996-7 #### [facility] ([id number]) [address] [place] [address] 98684 Calcium [Mass/Vol] 9.3 mg/dL Normal 8.5-10.5 [facility] Comment on above: Performed By: #### B ALAN, CBCA, 24844-6 #### [facility] ([id number]) [address] [place] [address] 58536 Chloride [Moles/Vol] 102 mmol/L Normal 98-109 [facility] Comment on above: Performed By: #### B ALAN, CBCA, 97839-9 #### [facility] ([id number]) [address] [place] [address] 77598 CO2 [Moles/Vol] 26 mmol/L Normal 22-32 [facility] Comment on above: Performed By: #### B ALAN, CBCA, 96996-6 #### [facility] ([id number]) [address] [place] [address] 88652 Creatinine [Mass/Vol] 0.64 mg/dL Normal 0.40-1.00 [facility] Comment on above: Result Comment: METH OD TRACEABLE TO IDMS STANDARD Performed By: #### B ALAN, CBCA, 64481-6 #### [facility] ([id number]) [address] [place] [address] 72895 eGFR (CKD-EPI) NON-RACE DEPENDENT >90 Normal >59 [facility] Comment on above: Result Comment: Reported eGFR is based on the CKD-EPI 2020 equation that does not use a race coefficient. Performed By: #### B JERRI PHILLIPSA, 87405-9 #### [facility] ([id number]) [address] [place] [address] 55657 Glucose [Mass/Vol] 202 mg/dL High 65-99 [facility] Comment on above: Performed By: #### B ALAN CBCA, 43844-1 #### [facility] ([id number]) [address] [place] [address] 86836 Potassium [Moles/Vol] 3.8 mmol/L Normal 3.5-5.0 [facility] Comment on above: Performed By: #### B ALAN CBCA, 25514-2 #### [facility] ([id number]) [address] [place] [address] 15180 Sodium [Moles/Vol] 137 mmol/L Normal 134-146 [facility] Comment on above: Performed By: #### B ALAN CBCA, 54129-8 #### [facility] ([id number]) [address] [place] [address] 84122 Urea nitrogen [Mass/Vol] 13 mg/dL Normal 5-27 [facility] Comment on above: Performed By: #### B ALAN CBCA, 54003-3 #### [facility] ([id number]) [address] [place] [address] 40510 CBC AND AUTO DIFFon 12-20-20 23 ABSOLUTE BASOPHIL 0.1 X10E9/L Normal 0.0-0.2 [facility] Comment on above: Performed By: #### B ALAN CBCA, 39925-8 #### [facility] ([id number]) [address] [place] [address] 61641 ABSOLUTE NEUTROPHIL 3.7 X10E9/L Normal 1.5-6.6 [facility] Comment on above: Performed By: #### B ALAN, CBCA, 26493-9 #### [facility] ([id number]) [address] [place] [address] 26075 Basophils/100 WBC (Bld) 1.2 % Normal [facility] Comment on above: Performed By: #### B ALAN, CBCA, 04895-7 #### [facility] ([id number]) [address] [place] [address] 18738 Eosinophils (Bld) [#/Vol] 0.4 10*3/uL Normal 0.0-0.4 [facility] Comment on above: Performed By: #### B ALAN, CBCA, 22278-2 #### [facility] ([id number]) [address] [place] [address] 41588 Eosinophils/100 WBC (Bld) 6.7 % Normal [facility] Comment on above: Performed By: #### B ALAN, CBCA, 43304-3 #### [facility] ([id number]) [address] [place] [address] 39730 Erythrocyte distribution wid th (RBC) [Ratio] 13.7 % Normal 11.5-15.0 [facility] Comment on above: Performed By: #### B ALAN, CBCA, 75378-1 #### [facility] ([id number]) [address] [place] [address] 99019 Hematocrit (Bld) [Volume fraction] 39.1 % Normal 35-47 [facility] Comment on above: Performed By: #### B ALAN, CBCA, 61676-7 #### [facility] ([id number]) [address] [place] [address] 06337 Hemoglobin (Bld) [Mass/Vol] 12.9 g/dL Normal 11.7-15. 5 [facility] Comment on above: Performed By: #### B ALAN, CBCA, 68166-0 #### [facility] ([id number]) [address] [place] [address] 13284 Lymphocytes (Bld) [#/Vol] 1.4 10*3/uL Normal 1.0-3.5 [facility] Comment on above: Performed By: #### B ALAN, CBCA, 92516-5 #### [facility] ([id number]) [address] [place] [address] 55963 Lymphocytes/100 WBC (Bld) 22.9 % Normal [facility] Comment on above: Performed By: #### B ALAN, CBCA, 56571-5 #### [facility] ([id number]) [address] [place] [address] 69870 MCH (RBC) [Entitic mass] 28.4 pg Normal 27-34 [facility] Comment on above: Performed By: #### B ALAN, CBCA, 03174-6 #### [facility] ([id number]) [address] [place] [address] 27828 MCHC (RBC) [Mass/Vol] 33.0 g/dL Normal 32-36 [facility] Comment on above: Performed By: #### B ALAN, CBCA, 06739-5 #### [facility] ([id number]) [address] [place] [address] 28104 MCV (RBC) [Entitic vol] 86 fL Normal 80-100 [facility] Comment on above: Performed By: #### B ALAN, CBCA, 12969-6 #### [facility] ([id number]) [address] [place] [address] 58478 Monocytes (Bld) [#/Vol] 0.6 10*3/uL Normal 0-0.9 [facility] Comment on above: Performed By: #### B MP, CBCA, 02635-3 #### [facility] ([id number]) [address] [place] [address] 23383 Monocytes/100 WBC (Bld) 9.8 % Normal [facility] Comment on above: Performed By: #### B MP, CBCA, 00789-4 #### [facility] ([id number]) [address] [place] [address] 39488 Neutrophils/100 WBC (Bld) 59.4 % Normal [facility] Comment on above: Performed By: #### B MP, CBCA, 83621-0 #### [facility] ([id number]) [address] [place] [address] 91432 Platelet mean volume (Bld) [Entitic vol] 8.4 fL Normal 7-12 [facility] Comment on above: Performed By: #### B MP, CBCA, 89531-7 #### [facility] ([id number]) [address] [place] [address] 86537 Platelets (Bld) [#/Vol] 219 10*3/uL Normal 150-450 [facility] Comment on above: Performed By: #### B MP, CBCA, 54086-6 #### [facility] ([id number]) [address] [place] [address] 78746 RBC COUNT 4.53 X10E12/L Normal 3.80-5.20 [facility] Comment on above: Performed By: #### B MP, CBCA, 53058-9 #### [facility] ([id number]) [address] [place] [address] 76149 WBC (Bld) [#/Vol] 6.2 10*3/uL Normal 4.0-11.0 [facility] Comment on above: Performed By: #### B MP, CBCA, 65901-3 #### [facility] ([id number]) [address] [facility], [place] [address] SARS/FLU A+B/RSV by NAAT/Mol maria eugeniaon 09-24-2023 SARS/FLU A+B/RSV by NAAT/Molecular FLU A [...] operators who are performing tests using either [employer] or [employer] systems and is limited to laboratories that [...] repeat. Fact Sheet for Healthcare Providers: https://www.fda.go v/media/779359/maci nload Fact Sheet for Patients: https://www.fda.go v/media/615144/maci nload Normal [facility] Comment on above: Performed By: #### C OVFLR #### [facility] ([id number]) [address] [place] [address] 05885 TROPONIN Ion 09-24-2023 Troponin I.cardiac [Mass/Vol] ng/mL Normal 0.00-0 .04 [facility] Comment on above: Performed By: #### B MP, CBCA, 76910-6 #### [facility] ([id number]) [address] [place] [address] 39849 XR CHEST 2 VWSon 09-24-2023 XR CHEST [...] on 09/24/2023 9:20 AM Normal [facility] Cult,Urineon 05-16-2023 Cult,Urine Specimen Description .CLEAN CATCH URINE Culture NO SIGNIFICANT GROWTH Report Status FINAL 05/16/2023 Normal [facility] Comment on above: Performed By: #### U RC #### [facility] [address] [place], [place] [address] Auriculotherapist: Dallas Burton MD [facility] [address] [place] [address] Auriculotherapist: Lindy Odonnell MD Urinalysis w/ Microon 2022 Bilirubin, SemiQt,Ur Negative Normal NEG [facility] Comment on above: Performed By: #### U AMIC #### [facility] [address] [place] [address] Auriculotherapist: Lindy Oodnnell MD Blood, Urine Negative Normal NEG [facility] Comment on above: Performed By: #### U AMIC #### [facility] [address] [place], [place] [address] Auriculotherapist: Lindy Odonnell MD Clarity (U) Clear Normal CLEAR [facility] Comment on above: Performed By: #### U AMIC #### [facility] [address] [place], [place] [address] Auriculotherapist: Lindy Odonnell MD Color (U) Yellow Normal YEL [facility] Comment on above: Performed By: #### U AMIC #### [facility] [address] [place], [place] [id number] Auriculotherapist: Lindy Odonnell MD Epithelial cells LM Ql (Urin e sed) 2 TO 5 Normal 0-25 [facility] Comment on above: Performed By: #### U AMIC #### [facility] [address] [place], [place] [address] Auriculotherapist: Lindy Odonnell MD Glucose Ql (U) Negative Normal NEG [facility] Comment on above: Performed By: #### U AMIC #### [facility] [address] [place], [place] [address] Auriculotherapist: Lindy Odonnell MD Ketones Ql (U) Negative Normal NEG [facility] Comment on above: Performed By: #### U AMIC #### [facility] [address] [place], [place] 5[address] Auriculotherapist: Lindy Odonnell MD Leukocyte esterase Test stri p Ql (U) Negative Normal NEG [facility] Comment on above: Performed By: #### U AMIC #### [facility] [address] [place], [place] [address]383 Auriculotherapist: Lindy Odonnell MD Nitrite,Ur Negative Normal [facility] Comment on above: Performed By: #### U AMIC #### [facility] [address] [place] [address] Auriculotherapist: Lindy Odonnell MD PH,Ur 5.5 Normal 5.0-9.0 [facility] Comment on above: Performed By: #### U AMIC #### [facility] [address] [place], [place] [address] Auriculotherapist: Lindy Odonnell MD Protein Ql (U) Negative Normal NEG [facility] Comment on above: Performed By: #### U AMIC #### [facility] [address] [place], [place] [address] Auriculotherapist: Lindy Odonnell MD Spec. [place],Ur 1.025 High 1.010-1.02 0 [facility] Comment on above: Performed By: #### U AMIC #### [facility] [address] [place] [address] Dr. [place], [facility] Auriculotherapist: Lindy Odonnell MD Urine RBC's 0 TO 2 Normal 0-2 [facility] Comment on above: Performed By: #### U AMIC #### [address] [place] [address] Auriculotherapist: Lindy Odonnell MD Urine WBC's 0 TO 2 Normal 0-5 [facility] Comment on above: Performed By: #### U AMIC #### [facility] [address] [place], [facility] Auriculotherapist: Lindy Odonnell MD Urobilinogen,Ur Normal Normal 0.0-1.0 [facility] Comment on above: Performed By: #### U AMIC #### [facility] [address] [place], [place] [address] Auriculotherapist: Lindy Odonnell MD CBC AUTO DIFFon 01-05-2023 BASO # 0.0 103/ul Normal 0.0-0.1 [facility] Comment on above: Performed By: #### C BC #### [facility] [address] [place] [address] Dr. Traci Cerna Basophils/100 WBC (Bld) 0.7 % Normal 0.2-2.0 [facility] Comment on above: Performed By: #### C BC #### [facility] [address] [place] [address] Dr. Traci Cerna EO # 0.2 103/ul Normal 0.0-0.7 [facility] Comment on above: Performed By: #### C BC #### [facility] [address] [place] [address] Dr. Traci Cerna Eosinophils/100 WBC (Bld) 3.5 % Normal 0.9-7.0 [facility] Comment on above: Performed By: #### C BC #### [facility] [address] [place] [address] Dr. Traci Cerna Erythrocyte distribution wid th (RBC) [Ratio] 13.6 % Normal 11.0-15.0 [facility] Comment on above: Performed By: #### C BC #### [facility] [address] [place] [address] Dr. Traci Cerna Hematocrit (Bld) [Volume fraction] 38.9 % Normal 36.0-48.0 [facility] Comment on above: Performed By: #### C BC #### [facility] [address] [place] [address] Dr. Traci Cerna Hemoglobin (Bld) [Mass/Vol] 12.8 g/dL Normal 12.0-16. 0 [facility] Comment on above: Performed By: #### C BC #### [facility] [address] [place] [address] Dr. Traci Cerna IG # 0.01 10e3/ul Normal 0.00-0.03 [facility] Comment on above: Performed By: #### C BC #### [facility] [address] [place] [address] Dr. Traci Cerna IG % 0.2 % Normal 0.0-0.5 [facility] Comment on above: Performed By: #### C BC #### [facility] [address] [place] [address] Dr. Traci Cerna LYMPH # 2.0 103/ul Normal 1.2-3.8 [facility] Comment on above: Performed By: #### C BC #### [facility] [address] [place] [address] Dr. Traci Cerna Lymphocytes/100 WBC (Bld) 37.8 % Normal 20.5-60.0 [facility] Comment on above: Performed By: #### C BC #### [facility] [address] [place] [address] Dr. Traci Cerna MANUAL DIFF REQ NO Normal [facility] Comment on above: Performed By: #### C BC #### [facility] [address] [place] [address] Dr. Traci Cerna MCH (RBC) [Entitic mass] 28.6 pg Normal 26.7-34.0 [facility] Comment on above: Performed By: #### C BC #### [facility] [address] [place] [address] Dr. Traci Cerna MCHC (RBC) [Mass/Vol] 32.9 g/dL Normal 29.9-35.2 [facility] Comment on above: Performed By: #### C BC #### [facility] [address] [place] [address] Dr. Traci Cerna MCV (RBC) [Entitic vol] 86.8 fL Normal 81.0-99.0 [facility] Comment on above: Performed By: #### C BC #### [facility] [address] [place] [address] Dr. Traci Cerna MONO # 0.6 103/ul Normal 0.3-0.8 [facility] [facility] Comment on above: Performed By: #### C BC #### [facility] [address] [place] [address] Dr. Traci Cerna Monocytes/100 WBC (Bld) 10.8 % Normal 1[facility]7-12.0 [facility] Comment on above: Performed By: #### C BC #### [facility] [address] [address] [address] Traci Cerna NEUT # 2.5 103/ul Normal 1.4-6.5 [facility] Comment on above: Performed By: #### C BC #### [facility] [address] [address] [address] Traci Cerna Neutrophils/100 WBC (Bld) 47.0 % Normal 43.0-75.0 [facility] Comment on above: Performed By: #### C BC #### [facility] [address] [place] [address] Dr. Traci Cerna Platelet mean volume (Bld) [Entitic vol] 9.9 fL Normal 9.5-13.5 [facility] Comment on above: Performed By: #### C BC #### [facility] [address] [place] [address] Dr. Traci Cerna PLT 218 103/ul Normal 150-450 [facility] Comment on above: Performed By: #### C BC #### [facility] [address] [place] [address] Dr. Traci Cerna RBC 4.48 106/ul Normal 4.20-5.40 [facility] Comment on above: Performed By: #### C BC #### [facility] [address] [place] [address] Dr. Traci Cerna WBC 5.4 103/ul Normal 4.0-11.0 [facility] Comment on above: Performed By: #### C BC #### [facility] [address] [place] [address] NECK ST WO [...] SUSAN PENDLETON Date: 2023-01-05 20:31 Normal [facility] PROF CHEM 8 (BAS METB)on Anion gap [Moles/Vol] 12.3 mmol/L Normal [facility] Comment on above: Performed By: #### T SH, BMP #### [facility] [address] [place] [address] Dr. Traci Cerna Calcium [Mass/Vol] 9.4 mg/dL Normal 8.5-10.1 [facility] Comment on above: Performed By: #### T EMMA, BMP #### [facility] [address] [place] [address] Dr. Traci Cerna Chloride [Moles/Vol] 105 mmol/L Normal 98-107 [facility] Comment on above: Performed By: #### T SH, BMP #### [facility] [address] [place] [address] Dr. Traci Cerna CO2 [Moles/Vol] 29.0 mmol/L Normal 21.0-32.0 [facility] Comment on above: Performed By: #### T SH, BMP #### [facility] [address] [place] [address] Dr. Traci Cerna Creatinine [Mass/Vol] 0.78 mg/dL Normal 0.55-1.02 [facility] Comment on above: Performed By: #### T SH, BMP #### [facility] [address] [place] [address] Dr. Traci Cerna EGFR-AF ANDORRAN >60 Normal >=60 [facility] Comment on above: Performed By: #### T SH, BMP #### [facility] [address] [place] [address] Dr. Traci Cerna EGFR-NON AF ANDORRAN >60 Normal >=60 [facility] Comment on above: Performed By: #### T SH, BMP #### [facility] [address] [address] [address] Traci Cerna Glucose [Mass/Vol] 178 mg/dL Critically high 74-106 [facility] Comment on above: Performed By: #### T SH, BMP #### [facility] [address] [place] [address] Dr. Traci Cerna Potassium [Moles/Vol] 4.3 mmol/L Normal 3.5-5.1 [facility] Comment on above: Performed By: #### T SH, BMP #### [facility] [address] [place] [address] Dr. Traci Cerna Sodium [Moles/Vol] 142 mmol/L Normal 136-145 [facility] Comment on above: Performed By: #### T SH, BMP #### [facility] [address] [place] [address] Dr. Traci Cerna Urea nitrogen [Mass/Vol] 21.0 mg/dL Critically high 7.0-18 .0 [facility] Comment on above: Performed By: #### T SH, BMP #### [facility] [address] [place] [address] Dr. Traci Cerna Urea nitrogen/Creatinine [Ma ss ratio] 26.9 mg/mg Normal [facility] Comment on above: Performed By: #### T SH, BMP #### [facility] [address] [place] [address] Dr. Traci Cerna TSHon 01-05-2023 TSH 0.650 uIU/mL Normal 0.358-3.74 0 [facility] Comment on above: Performed By: #### T SH, BMP #### [facility] [address] [place] [address] Dr. Traci Cerna US Thyroidon 12-30-2022 US Thyroid CLINICAL HISTORY: Enlarged thyroid on physical exam. COMPARISON: None available. TECHNIQUE: Ultrasound of the thyroid was performed with a regional survey. Reference: ACR Thyroid, Imaging Recording and Data System (TI-RADS): White paper of the ACR TI-RADS committee. Journal of the [place] [employer] of radiology: Volume 14, issue 5, [...] by Mac Dai on 01/01/2023 0924 Normal [facility] Specialist Colonoscopy studyOrdered By: Jairo Fisher on 04-03-2021 No dictation [employer] Phone: [employer] Phone: EsophagogastroduodenoscopyOr dered By: Jairo Fisher on 04-03-2021 No dictation [employer] Phone: [employer] Phone: .UA Microscp Aon 07-15-2019 UA Mucus Present Abnormal Absent [facility] Comment on above: Performed By: #### E GFR #### [facility] [address] [place] [address] UA RBC Quant 0 /HPF Normal 0-5 [facility] Comment on above: Performed By: #### E GFR #### [facility] [address] [place] [address] UA Squepi Cells Quant 1 /HPF Normal 0-29 [facility] Comment on above: Performed By: #### E GFR #### [facility] [address] [place] [address] UA WBC Quant 1 /HPF Normal 0-5 [facility] Comment on above: Performed By: #### E GFR #### [facility] [address] [place] [address] Consultation Note - Generico n 07-15-2019 Consultation [...] Koki Marquez DO 07/15/19 01:10 EDT Normal [facility] Inpatient Clinical Summaryon 07-15-2019 Inpatient Clinical Summary [facility] [address] [place] [address] [place] [address] Clinical Summary Person Information Name: Mari Jamison Age: 69 Years : 1950 Sex: Female PCP: Marital Status: PCP: Race: White Ethnicity: Not or Language: Colombian Visit Id: Visit Reason: Speciality: Acuity: Enc Type: Inpatient Med Service: Surgery Arrival: 07/14/2019 05:57:15 Discharge: Dispo Type: Address: [address] [place] [address] Diagnosis: History of total left hip replacement; [...] pain medication. Discharge Wound Care Leave the [facility] bandage in place for one week after [...] STAY New Medications Printed Prescriptions hydrocodone-acetam inophen (Carmen 5 mg-325 mg oral tablet) 1 Tabs [...] PATIENT?S CURRENT MEDICATIONS Printed Prescriptions hydrocodone-acetam inophen (Carmen 5 mg-325 mg oral tablet) 1 Tabs [...] With: Address: When: Juan Casey MD [address] [place] [phone] Normal [facility] POC Glucose Randomon 019 Glucose [Mass/Vol] 278 mg/dL High 78-110 [facility] Comment on above: Performed By: #### E GFR #### [address] [address] Glucose [Mass/Vol] 189 mg/dL High 78-110 [facility] Comment on above: Performed By: #### C OMP #### [address] [address] Glucose [Mass/Vol] 181 mg/dL High 78-110 [facility] Comment on above: Performed By: #### C OMP #### [address] [address] Glucose [Mass/Vol] 236 mg/dL High 78-110 [facility] Comment on above: Performed By: #### C OMP #### [address] [address] Glucose [Mass/Vol] 233 mg/dL High 78-110 [facility] Comment on above: Performed By: #### C OMP #### [address] [address] Glucose [Mass/Vol] 283 mg/dL High 78-110 [facility] Comment on above: Performed By: #### C OMP #### [address] [address] UA w Culture if Indon 2018 Color (U) Yellow Normal [facility] Comment on above: Performed By: #### E GFR #### [address] [address] Glucose (U) [Mass/Vol] 150 mg/dL Abnormal Negative [facility] Comment on above: Performed By: #### E GFR #### [address] [address] Ketones Ql (U) Negative Normal Negative [facility] Comment on above: Performed By: #### E GFR #### [address] [address] UA Blood Negative Normal Negative [facility] Comment on above: Performed By: #### E GFR #### [address] [address] UA Clarity Clear Normal [facility] Comment on above: Performed By: #### E GFR #### [address] [address] UA Leukocyte Esterase Negative Normal Negative [facility] Comment on above: Performed By: #### E GFR #### [address] [address] UA Nitrite Negative Normal Negative [facility] Comment on above: Performed By: #### E GFR #### [address] [address] UA pH 6.0 Normal 4.5 - 7.8 [facility] Comment on above: Performed By: #### E GFR #### [address] [address] UA Protein Negative Normal Negative [facility] Comment on above: Performed By: #### E GFR #### [address] [address] UA Source Clean Catch Normal [facility] Comment on above: Performed By: #### E GFR #### [address] [address] UA Spec Grav 1.010 Normal 1.003-1.03 5 [facility] Comment on above: Performed By: #### E GFR #### [address] [place] [address] UA Urobilinogen 0.2 mg/dL Normal 0.2 - 1.0 [facility] Comment on above: Performed By: #### E GFR #### [address] [place] [address] Urobilinogen Qn (U) Negative Normal Negative [facility] Comment on above: Performed By: #### E GFR #### [address] [address] .eGFRon 07-14-2019 eGFR Non-AA >60 Normal >=60 [facility] Comment on above: Result Comment: Resu lt [...] dosing. Performed By: #### C OMP #### [id number] eGFR AA >60 Normal >=60 [facility] Comment on above: Result Comment: Resu lt = 0-14.9 mL/min/1.73 m2 Kidney failure or Dialysis Result = 15-29 mL/min/1.73 m2 Severe decrease in GFR Result = 30-59 mL/min/1.73 m2 Moderate decrease in GFR Result >= 60 mL/min/1.73 m2 Normal or increased GFR Performed By: #### C OMP #### [address] [address] Basic Metabolic Profileon Anion gap [Moles/Vol] 14 mmol/L Normal 7-17 [facility] Comment on above: Performed By: #### C [id number] #### [address] [address] Calcium [Mass/Vol] 8.9 mg/dL Normal 8.5-10.3 [facility] Comment on above: Performed By: #### C [id number] #### [address] [address] Chloride [Moles/Vol] 104 mmol/L Normal 98-110 [facility] Comment on above: Performed By: #### C D:[id number] #### [address] [address] CO2 [Moles/Vol] 25 mmol/L Normal 22-32 [facility] Comment on above: Performed By: #### C D:[id number] #### [address] [address] Creatinine [Mass/Vol] 0.75 mg/dL Normal 0.44-1.03 [facility] Comment on above: Performed By: #### C D:[id number] #### [address] [address] Glucose [Mass/Vol] 206 mg/dL High 74-118 [facility] Comment on above: Performed By: #### C D:[id number] #### [address] [address] Potassium [Moles/Vol] 3.8 mmol/L Normal 3.4-4.8 [facility] Comment on above: Performed By: #### C D:[id number] #### [address] [address] Sodium [Moles/Vol] 139 mmol/L Normal 133-142 [facility] Comment on above: Performed By: #### C D:[id number] #### [address] [address] Urea nitrogen [Mass/Vol] 20 mg/dL Normal 8-26 [facility] Comment on above: Performed By: #### C D:[id number] #### [address] [address] Urea nitrogen/Creatinine [Ma ss ratio] 26.7 mg/mg High 10.0-20.0 [facility] Comment on above: Performed By: #### C D:[id number] #### [address] [address] Hgb & Hcton 07-14-2019 Hematocrit (Bld) [Volume fraction] 33.0 % Low 36.0-46.0 [facility] Comment on above: Performed By: #### C D:[id number] #### [address] [address] Hemoglobin (Bld) [Mass/Vol] 10.9 g/dL Low 12.0-16. 0 [facility] Comment on above: Performed By: #### C D:[id number] #### [address] [address] Operative Reporton 9 Operative Report Indication for Surgery Degenerative arthritis left hip Preoperative Diagnosis Degenerative arthritis left hip Postoperative Diagnosis Same Operation Left total hip replacement Parveen 54 mm Continuum cup Fit more B4 femoral stem Versus 36 mm head +0 neck 2 acetabular screws 36 mm inner diameter elevated liner Surgeon(s) Dr. Juan Casey Gridcap Machine Operator [facility] Anesthesia General Estimated Blood Loss 550 mL [...] layer was then closed with #1 Ethibond [id number] sutures. The second half of the vancomycin [...] Juan Casey MD 07/14/19 10:28 EDT Normal [facility] POC Glucose Randomon 019 Glucose [Mass/Vol] 215 mg/dL High 78-110 [facility] Comment on above: Performed By: #### E GFR #### [address] [address] Glucose [Mass/Vol] 119 mg/dL High 78-110 [facility] Comment on above: Performed By: #### C D:[id number] #### [address] [address] Glucose [Mass/Vol] 136 mg/dL High 78-110 [facility] Comment on above: Performed By: #### C D:[id number] #### [address] [place] [address] Glucose [Mass/Vol] 204 mg/dL High 78-110 [facility] Comment on above: Performed By: #### C D:[id number] #### [address] [place] [address] Glucose [Mass/Vol] 267 mg/dL High 78-110 [facility] Comment on above: Performed By: #### C D:[id number] #### [address] [place] [address] Glucose [Mass/Vol] 164 mg/dL High 78-110 [facility] Comment on above: Performed By: #### C D:[id number] #### [address] [place] [address] XR Hip Operative 1 View Left on [...] Electronically Signed in Other Vendor System) Normal [facility] ABO/Rhon 07-02-2019 ABO/Rh SD 07/14/2019 DCon: 0 ABO/Rh: O NEG Normal [facility] Comment on above: Performed By: #### C D:[id number] #### [address] [address] ABSC Autoon 07-02-2019 ABSC Auto Negative Normal [facility] Comment on above: Performed By: #### C D:[id number] #### [address] [address] CBC w/ Diffon 07-02-2019 Erythrocyte distribution wid th (RBC) [Ratio] 14.1 % Normal 11.6-14.8 [facility] Comment on above: Performed By: #### C D:[id number] #### [address] [address] Hematocrit (Bld) [Volume fraction] 39.9 % Normal 36.0-46.0 [facility] Comment on above: Performed By: #### C D:[id number] #### [address] [address] Hemoglobin (Bld) [Mass/Vol] 13.5 g/dL Normal 12.0-16. 0 [facility] Comment on above: Performed By: #### C D:[id number] #### [address] [address] MCH (RBC) [Entitic mass] 28.9 pg Normal 27.0-35.0 [facility] Comment on above: Performed By: #### C D:[id number] #### [address] [address] MCHC (RBC) [Mass/Vol] 33.8 % Normal 31.0-37.0 [facility] Comment on above: Performed By: #### C D:[id number] #### [address] [address] MCV (RBC) [Entitic vol] 85.6 fL Normal 80.0-100.[address] [facility] Comment on above: Performed By: #### C D:[id number] #### [address] [address] Platelet mean volume (Bld) [Entitic vol] 8.3 fL Normal 6.7-10.6 [facility] Comment on above: Performed By: #### C D:[id number] #### [address] [address] Platelets (Bld) [#/Vol] 214 x10*3/mcL Normal 150-350 [facility] Comment on above: Performed By: #### C D:[id number] #### [address] [address] RBC (Bld) [#/Vol] 4.67 x10*6/mcL Normal 3.80-5.20 [facility] Comment on above: Performed By: #### C D:[id number] #### [address] [address] WBC (Bld) [#/Vol] 5.2 x10*3/mcL Normal 4.5-11.0 [facility] Comment on above: Performed By: #### C D:[id number] #### [address] [address] Diff Autoon 07-02-2019 Baso Absolute 0.0 x10*3/mcL Normal 0.0-0.2 [facility] Comment on above: Performed By: #### C D:[id number] #### [address] [place] [address] Basophils/100 WBC (Bld) 0.5 % Normal 0.0-1.[address] [facility] Comment on above: Performed By: #### C D:[id number] #### [address] [address] Eos Absolute 0.1 x10*3/mcL Normal 0.0-0.4 [facility] Comment on above: Performed By: #### C D:[id number] #### [address] [address] Eosinophils/100 WBC (Bld) 2.0 % Normal 0.0-5.4 [facility] Comment on above: Performed By: #### C D:[id number] #### [address] [address] Lymphocytes (Bld) [#/Vol] 1.6 x10*3/mcL Normal 1.0-4.8 [facility] Comment on above: Performed By: #### C D:[id number] #### [address] [address] Lymphocytes/100 WBC (Bld) 30.9 % Normal 27.2-40.8 [facility] Comment on above: Performed By: #### C D:[id number] #### [address] [address] Tucker Absolute 0.6 x10*3/mcL Normal 0.1-1.1 [facility] Comment on above: Performed By: #### C D:[id number] #### [address] [address] Monocytes/100 WBC (Bld) 11.8 % Normal 3.7-11.[address] [facility] Comment on above: Performed By: #### C D:[id number] #### [address] [address] Neutro Absolute 2.8 x10*3/mcL Normal 1.8-7.7 [facility] Comment on above: Performed By: #### C D:[id number] #### [address] [address] Neutro Auto 54.8 % Normal 47.2-70.8 [facility] Comment on above: Performed By: #### C D:[id number] #### [address] [address] .eGFRon 12-31-2018 eGFR Non-AA >60 Normal >=60 [facility] Comment on above: Result Comment: Resu lt [...] for medication dosing. Performed By: #### C D:[id number] #### [address] [address] eGFR AA >60 Normal >=60 [facility] Comment on above: Result Comment: Resu lt = 0-14.9 mL/min/1.73 m2 Kidney failure or Dialysis Result = 15-29 mL/min/1.73 m2 Severe decrease in GFR Result = 30-59 mL/min/1.73 m2 Moderate decrease in GFR Result >= 60 mL/min/1.73 m2 Normal or increased GFR Performed By: #### C D:[id number] #### [address] [address] Basic Metabolic Profileon Anion gap [Moles/Vol] 12 mmol/L Normal 7-17 [facility] Comment on above: Performed By: #### C BC #### [address] [address] Calcium [Mass/Vol] 8.9 mg/dL Normal 8.5-10.3 [facility] Comment on above: Performed By: #### C BC #### [address] [address] Chloride [Moles/Vol] 107 mmol/L Normal 98-110 [facility] Comment on above: Performed By: #### C BC #### [address] [address] CO2 [Moles/Vol] 21 mmol/L Low 22-32 [facility] Comment on above: Performed By: #### C BC #### [address] [address] Creatinine [Mass/Vol] 0.74 mg/dL Normal 0.44-1.03 [facility] Comment on above: Performed By: #### C BC #### [address] [address] Glucose [Mass/Vol] 243 mg/dL High 74-118 [facility] Comment on above: Performed By: #### C BC #### [address] [address] Potassium [Moles/Vol] 4.0 mmol/L Normal 3.4-4.8 [facility] Comment on above: Performed By: #### C BC #### [address] [address] Sodium [Moles/Vol] 136 mmol/L Normal 133-142 [facility] Comment on above: Performed By: #### C BC #### [address] [address] Urea nitrogen [Mass/Vol] 21 mg/dL Normal 8-26 [facility] Comment on above: Performed By: #### C BC #### [address] [address] Urea nitrogen/Creatinine [Ma ss ratio] 28.4 mg/mg High 10.0-20.0 [facility] Comment on above: Performed By: #### C BC #### [address] [address] Hgb & Hcton 12-31-2018 Hematocrit (Bld) [Volume fraction] 32.0 % Low 36.0-46.0 [facility] Comment on above: Performed By: #### C BC #### [address] [address] Hemoglobin (Bld) [Mass/Vol] 10.7 g/dL Low 12.0-16. 0 [facility] Comment on above: Performed By: #### C BC #### [address] [address] Inpatient Clinical Summaryon 12-31-2018 Inpatient Clinical Summary [address] [address] [address] Clinical Summary Person Information Name: Mari Jamison Age: 68 Years : 1950 Sex: Female PCP: Suzie Mota CNP Marital Status: PCP: [phone] Race: White Ethnicity: Not or Language: Colombian Visit Id: Visit Reason: Speciality: Acuity: Enc Type: Observation Med Service: Surgery Arrival: 12/30/2018 06:28:09 Discharge: Dispo Type: Address: [address] [place] [address] Diagnosis: 1:S/P total knee replacement; 2:Arthritis of [...] Discharge Patient Education Review and attach [facility] Hip/Knee Inpatient Discharge Special Instructions If [...] Have Not Changed Printed Prescriptions hydrocodone-acetam inophen (Carmen 5 mg-325 mg oral tablet) 1 Tabs [...] PATIENT?S CURRENT MEDICATIONS Printed Prescriptions hydrocodone-acetam inophen (Carmen 5 mg-325 mg oral tablet) 1 Tabs [...] Follow up: With: Address: When: Juan Casey [address] [place] [phone] Business (1) Within 1 to 2 weeks Comments: 2 weeks With: Address: When: Suzie Mota [address] [place] [phone] Business (1) Normal [facility] POC Glucose Randomon 019 Glucose [Mass/Vol] 270 mg/dL High 78-110 [facility] Comment on above: Performed By: #### C [id number] #### [address] [address] Glucose [Mass/Vol] 149 mg/dL High 78-110 [facility] Comment on above: Performed By: #### C D:[id number] #### [address] [address] Glucose [Mass/Vol] 174 mg/dL High 78-110 [facility] Comment on above: Performed By: #### C D:[id number] #### [facility] [address] [place] [address] Glucose [Mass/Vol] 244 mg/dL High 78-110 [facility] Comment on above: Performed By: #### C BC #### [facility] [address] [facility] [place] [address] Glucose [Mass/Vol] 303 mg/dL High 78-110 [facility] Comment on above: Performed By: #### C BC #### [facility] [address] [place] [id number] Progress Note - [employer] Progress Note - [...] femoral vein. Results called to ELROY Snider. Industrial Relations Worker: Maribel Collins RVT Radiologist Report Signature Line [...] Tomas Holt CNP 12/31/18 13:28 EDT Normal [facility] VL Extremity Venous Duplex Dontae Stone 12-31-2018 VL Extremity Venous Duplex Lower Left Preliminary Technologist Report Left lower extremity: Appeared to be no evidence of acute or chronic DVT in the visualized veins. Normal comparative study of the right common femoral vein. Results called to ELROY Snider. Industrial Relations Worker: Maribel Collins, RVT Radiologist Report Left lower [...] Electronically Signed in Other Vendor System) Normal [facility] Consultation Note - Generico n 12-30-2018 Consultation Note - Generic Chief Compla int LEFT KNEE PAIN/ARTHRITIS-KAMINI EDULED FOR TOTAL LEFT KNEE Reason for Consultation diabetes management History of Present Illness PCP: Suzie mota CNP- [facility] orthopedist: Dr. Juan Casey urologist: Dr. juan luis Lane spine surgeon: Dr. Krishan Connor, [place] The patient is a 68-year-old female with [...] replacement - per ortho recommendations - on Carmen prn pain and IV dilaudid prn breakthrough pain - Xarelto prn DVT prophylaxis. 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 Has rxs for Xarelto and Carmen to be continued on discharge - plans [...] Limited # of times, Dispense From Location: [id number] glucose, 12.5 g, IV Push, Injection, As Indicated for 20 doses, PRN other (see comment), First Dose: 12/30/18 15:58:00 EDT, Stop Date: Limited # of times, Dispense From Location: [id number] insulin aspart, 4, Subcutaneous, Injection, Once, First [...] Dose: 12/31/18 9:00:00 EDT, Dispense From Location: [id number] meclizine, 12.5 mg, Oral, Tab, Daily, PRN dizziness, First Dose: 12/30/18 15:56:00 EDT, Dispense From Location: [id number] omeprazole, 20 mg, Oral, Cap-DR, qAM, First Dose: 12/31/18 7:00:00 EDT, Dispense From Location: [id number] ADA Diet Blood Glucose Monitoring POC Blood Glucose Monitoring POC Blood Glucose Monitoring POC Blood Glucose Monitoring POC Insulin Safety [place] Insulin Safety [place] Notify Provider Notify Provider Notify Provider Notify [...] 2 mL, IV Push, q6hr, PRN Prescriptions Carmen 5 mg-325 mg oral tablet, 1 tabs, [...] (12/08/18) Methicillin Resistant Staph aurus(MRSA): Negative (12/30/18) Tucker Absolute: 0.7 (12/08/18) Tucker Auto: 10.3 (12/08/18) Neutro Absolute: 3.4 (12/08/18) Neutro Auto: 53.2 (12/08/18) POC Gluc Random: 374 mg/dL (12/30/18) RBC: 4.56 (12/08/18) RDW: 13.9 (12/08/18) Sed Rate: 13 (12/08/18) Total Protein: 7.6 (12/08/18) UA Mucus: Present (12/08/18) UA RBC Quant: 0 (12/08/18) UA Squepi Cells Quant: 1 (12/08/18) UA WBC Quant: 1 (12/08/18) Diagnostic Results ECG 12/08/18 with evidence of prior inferior AL Electronically signed by Doedelma DO Marcia Fartun 12/30/18 23:17 EDT glucose prior [...] DoedMarcia hunt DO 12/30/18 23:19 EDT Normal [facility] MRSA, PCRon 12-30-2018 INR Coag (Bld) [Relative time] Negative Normal [facility] Comment on above: Result Comment: The CepGrexItid Xpert MRSA Assay is a qualitative in [...] the clinician. Performed By: #### C #### [place] [id number] Operative Reporton 9 Operative Report Indication for Surgery Degenerative arthritis left knee Preoperative Diagnosis Degenerative arthritis left knee Postoperative Diagnosis Same Operation Left total knee replacement Parveen persona knee Persona CR 7 femoral component Persona stemmed E plateau 10 mm CR vitamin E poly- 32 mm vitamin E patellar dome Surgeon(s) Dr. Percy Casey [employer] Machine Operator Ce Jodi ANDERSON Anesthesia Spinal Estimated Blood [...] go with a 32 mm patella dome. [place] holes were placed. The knee was then [...] Juan Casey MD 12/30/18 11:47 EDT Normal [facility] POC Glucose Randomon 019 Glucose [Mass/Vol] 374 mg/dL High 78-110 [facility] Comment on above: Performed By: #### C BC #### [address] [address] Glucose [Mass/Vol] 334 mg/dL High 78-110 [facility] Comment on above: Performed By: #### C BC #### [address] [address] Glucose [Mass/Vol] 141 mg/dL High 78-110 [facility] Comment on above: Performed By: #### C BC #### [address] [address] Glucose [Mass/Vol] 179 mg/dL High 78-110 [facility] Comment on above: Performed By: #### C [id number] #### [address] [address] C Urineon 12-10-2018 C Urine Final 20-30,000 cfu/ml Mixed gram positive joe isolated. This urine contains 3 or more organisms which is inconsistent with clean catch collection. Consider the possibility of contamination during collection. No identification or susceptibility performed as results would be misleading Normal [facility] Comment on above: Performed By: #### U RC #### [place] [address] .UA Microscp Aon 12-08-2018 UA Mucus Present Abnormal Absent [facility] Comment on above: Performed By: #### C [id number] #### [place] [address] UA RBC Quant 0 /HPF Normal 0-5 [facility] Comment on above: Performed By: #### C [id number] #### [place] [address] UA Squepi Cells Quant 1 /HPF Normal 0-29 [facility] Comment on above: Performed By: #### C [id number] #### [place] [address] UA WBC Quant 1 /HPF Normal 0-5 [facility] Comment on above: Performed By: #### C [id number] #### [place] [address] .eGFRon 12-08-2018 eGFR Non-AA >60 Normal >=60 [facility] Comment on above: Result Comment: Resu lt [...] dosing. Performed By: #### E GFR #### [address] [address] eGFR AA >60 Normal >=60 [facility] Comment on above: Result Comment: Resu lt = 0-14.9 mL/min/1.73 m2 Kidney failure or Dialysis Result = 15-29 mL/min/1.73 m2 Severe decrease in GFR Result = 30-59 mL/min/1.73 m2 Moderate decrease in GFR Result >= 60 mL/min/1.73 m2 Normal or increased GFR Performed By: #### E GFR #### [address] [address] CBC w/ Diffon 12-08-2018 Erythrocyte distribution wid th (RBC) [Ratio] 13.9 % Normal 11.6-14.8 [facility] Comment on above: Performed By: #### C BC #### [address] [address] Hematocrit (Bld) [Volume fraction] 39.7 % Normal 36.0-46.0 [facility] Comment on above: Performed By: #### C BC #### [address] [address] Hemoglobin (Bld) [Mass/Vol] 12.9 g/dL Normal 12.0-16. 0 [facility] Comment on above: Performed By: #### C BC #### [address] [address] MCH (RBC) [Entitic mass] 28.3 pg Normal 27.0-35.0 [facility] Comment on above: Performed By: #### C BC #### [address] [address] MCHC (RBC) [Mass/Vol] 32.5 % Normal 31.0-37.0 [facility] Comment on above: Performed By: #### C BC #### [address] [address] MCV (RBC) [Entitic vol] 87.1 fL Normal 80.0-100.0 [facility] Comment on above: Performed By: #### C BC #### [address] [place] [address] Platelet mean volume (Bld) [Entitic vol] 8.2 fL Normal 6.7-10.6 [facility] Comment on above: Performed By: #### C BC #### [address] [address] Platelets (Bld) [#/Vol] 218 x10*3/mcL Normal 150-350 [facility] Comment on above: Performed By: #### C BC #### [address] [address] RBC (Bld) [#/Vol] 4.56 x10*6/mcL Normal 3.80-5.20 [facility] Comment on above: Performed By: #### C BC #### [address] [address] WBC (Bld) [#/Vol] 6.5 x10*3/mcL Normal 4.5-11.0 [facility] Comment on above: Performed By: #### C BC #### [address] [address] CMPon 12-08-2018 Albumin [Mass/Vol] 4.0 g/dL Normal 3.2-4.9 [facility] Comment on above: Result Comment: [facility] Laboratory updated the methodology used for albumin testing on 05/13/18. Albumin measurement was performed using a bromcresol purple dye-binding assay. Performed By: #### C OMP #### [address] [address] Albumin/Globulin [Mass ratio] 1.1 {ratio} Normal 1.1-2 .2 [facility] Comment on above: Performed By: #### C OMP #### [address] [address] Alk Phos 58 IU/L Normal 32-91 [facility] Comment on above: Performed By: #### C OMP #### [address] [address] ALT [Catalytic activity/Vol] 18 U/L Normal 14-54 [facility] Comment on above: Performed By: #### C OMP #### [address] [place] [address] Anion gap [Moles/Vol] 15 mmol/L Normal 7-17 [facility] Comment on above: Performed By: #### C OMP #### [address] [place] [address] AST [Catalytic activity/Vol] 20 U/L Normal 15-41 [facility] Comment on above: Performed By: #### C OMP #### [address] [address] Bili Total 0.6 mg/dL Normal 0.3-1.2 [facility] Comment on above: Performed By: #### C OMP #### [address] [address] Calcium [Mass/Vol] 9.2 mg/dL Normal 8.5-10.3 [facility] Comment on above: Performed By: #### C OMP #### [address] [place] [address] Chloride [Moles/Vol] 100 mmol/L Normal 98-110 [facility] Comment on above: Performed By: #### C OMP #### [address] [place] [address] CO2 [Moles/Vol] 25 mmol/L Normal 22-32 [facility] Comment on above: Performed By: #### C OMP #### [address] [place] [address] Creatinine [Mass/Vol] 0.63 mg/dL Normal 0.44-1.03 [facility] Comment on above: Performed By: #### C OMP #### [address] [place] [address] Glucose [Mass/Vol] 156 mg/dL High 74-118 [facility] Comment on above: Performed By: #### C OMP #### [address] [place] [address] Potassium [Moles/Vol] 4.0 mmol/L Normal 3.4-4.8 [facility] Comment on above: Performed By: #### C OMP #### [address] [address] Protein [Mass/Vol] 7.6 g/dL Normal 6.5-8.1 [facility] Comment on above: Performed By: #### C OMP #### [address] [address] Sodium [Moles/Vol] 136 mmol/L Normal 133-142 [facility] Comment on above: Performed By: #### C OMP #### [address] [address] Urea nitrogen [Mass/Vol] 16 mg/dL Normal 8-26 [facility] Comment on above: Performed By: #### C OMP #### [address] [address] Urea nitrogen/Creatinine [Ma ss ratio] 25.4 mg/mg High 10.0-20.0 [facility] Comment on above: Performed By: #### C OMP #### [address] [address] Diff Autoon 12-08-2018 Baso Absolute 0.0 x10*3/mcL Normal 0.0-0.2 [facility] Comment on above: Performed By: #### . Automated Diff #### [address] [address] Basophils/100 WBC (Bld) 0.8 % Normal 0.0-1.[address] [facility] Comment on above: Performed By: #### . Automated Diff #### [address] [address] Eos Absolute 0.2 x10*3/mcL Normal 0.0-0.4 [facility] Comment on above: Performed By: #### . Automated Diff #### [address] [address] Eosinophils/100 WBC (Bld) 2.8 % Normal 0.0-5.4 [facility] Comment on above: Performed By: #### . Automated Diff #### [address] [address] Lymphocytes (Bld) [#/Vol] 2.1 x10*3/mcL Normal 1.0-4.8 [facility] Comment on above: Performed By: #### . Automated Diff #### [address] [address] Lymphocytes/100 WBC (Bld) 32.9 % Normal 27.2-40.8 [facility] Comment on above: Performed By: #### . Automated Diff #### [address] [address] Tucker Absolute 0.7 x10*3/mcL Normal 0.1-1.1 [facility] Comment on above: Performed By: #### . Automated Diff #### [address] [address] Monocytes/100 WBC (Bld) 10.3 % Normal 3.7-11.9 [facility] Comment on above: Performed By: #### . Automated Diff #### [address] [address] Neutro Absolute 3.4 x10*3/mcL Normal 1.8-7.7 [facility] Comment on above: Performed By: #### . Automated Diff #### [address] [address] Neutro Auto 53.2 % Normal 47.2-70.8 [facility] Comment on above: Performed By: #### . Automated Diff #### [address] [address] ESRon 12-08-2018 ESR (Bld) [Velocity] 13 mm/h Normal 0-30 [facility] Comment on above: Performed By: #### E SR #### [address] [address] Hgb A1con 12-08-2018 HbA1c (Bld) [Mass fraction] 7.7 % A1c High 4.0-6.0 [facility] Comment on above: Performed By: #### H BA1C #### [address] [address] HbA1c (Bld) [Mass fraction] 174 mg/dL High 74-118 [facility] Comment on above: Result Comment: Math ematical Calc approx. The mean gluc equivalency of A1c Performed By: #### H BA1C #### [address] [address] UA Routine without Cultureon 12-08-2018 Color (U) Yellow Normal [facility] Comment on above: Performed By: #### C [id number] #### [address] [address] Glucose (U) [Mass/Vol] Negative Normal Negative [facility] Comment on above: Performed By: #### C [id number] #### [address] [address] Ketones Ql (U) Negative Normal Negative [facility] Comment on above: Performed By: #### C [id number] #### [address] [address] UA Blood Small Abnormal Negative [facility] Comment on above: Performed By: #### C [id number] #### [address] [address] UA Clarity Clear Normal [facility] Comment on above: Performed By: #### C [id number] #### [address] [address] UA Leukocyte Esterase Trace Abnormal Negative [facility] Comment on above: Performed By: #### C [id number] #### [address] [address] UA Nitrite Negative Normal Negative [facility] Comment on above: Performed By: #### C [id number] #### [address] [address] UA pH 5.0 Normal 4.5 - 7.8 [facility] Comment on above: Performed By: #### C [id number] #### [place] [address] [place] [address] UA Protein Negative Normal Negative [facility] Comment on above: Performed By: #### C [id number] #### [place] [address] [place] [address] UA Spec Grav 1.018 Normal 1.003-1.03 5 [facility] Comment on above: Performed By: #### C [id number] #### [address] [address] UA Urobilinogen 0.2 mg/dL Normal 0.2 - 1.0 [facility] Comment on above: Performed By: #### C [id number] #### [address] [address] Urobilinogen Qn (U) Negative Normal Negative [facility] Comment on above: Performed By: #### C [id number] #### [address] [address] Vital Signs Date Time Vital Sign Value Performing Clinician Facility 12-08-2023 09:58-0500 Body height 162.6 cm Narinder Palomo MD Work Phone: [facility] 12-08-2023 09:58-0500 Body mass index (BMI) [Ratio] 33.99 kg/m2 Narinder Palomo MD Work Phone: [facility] 12-08-2023 09:58-0500 Body weight 89.81 kg Narinder Palomo MD Work Phone: [facility] 12-08-2023 09:58-0500 Diastolic blood pressure 98 mm[Hg] Narinder Palomo MD Work Phone: [facility] 12-08-2023 09:58-0500 Heart rate 95 /min Narinder Palomo MD Work Phone: [facility] 12-08-2023 09:58-0500 SaO2% (BldA) [Mass fraction] 96 % Narinder Palomo MD Work Phone: [facility] 12-08-2023 09:58-0500 Systolic blood pressure 158 mm[Hg] Narinder Palomo MD Work Phone: [facility] 12-02-2023 10:52-0500 Body height 162.6 cm Columba Gonzalez MD Work Phone: [facility] 12-02-2023 10:52-0500 Body mass index (BMI) [Ratio] 34.33 kg/m2 Columba Gonzalez MD Work Phone: [facility] 12-02-2023 10:52-0500 Body weight 90.72 kg Columba Gonzalez MD Work Phone: [facility] 12-02-2023 10:52-0500 Diastolic blood pressure 92 mm[Hg] Columba Gonzalez MD Work Phone: [facility] 12-02-2023 10:52-0500 Heart rate 95 /min Columba Gonzalez MD Work Phone: [facility] 12-02-2023 10:52-0500 SaO2% (BldA) [Mass fraction] 96 % Columba Gonzalez MD Work Phone: [facility] 12-02-2023 10:52-0500 Systolic blood pressure 160 mm[Hg] Columba Gonzalez MD Work Phone: [facility] 05-29-2022 14:30-0400 Body height 162.56 cm Krishan Madrid Other [employer] Other 05-29-2022 14:30-0400 Body mass index (BMI) [Ratio] 35.36 kg/m2 Krishan Madrdi Other [employer] Other 05-29-2022 14:30-0400 Body weight 93.44 kg Krishan Madrid Other [facility] [employer] Other 04-03-2021 10:30-0400 Diastolic blood pressure 66 mm[Hg] Jairo Fisher MD Work Phone: [facility] Work Phone: 04-03-2021 10:30-0400 Heart rate 75 /min Jairo Fisher MD Work Phone: [facility] Work Phone: 04-03-2021 10:30-0400 Respiratory rate 18 /min Jairo Fisher MD Work Phone: [facility] Work Phone: 04-03-2021 10:30-0400 SaO2% (BldA) [Mass fraction] 94 % Jairo Fisher MD Work Phone: [facility] Work Phone: 04-03-2021 10:30-0400 Systolic blood pressure 118 mm[Hg] Jairo Fisher MD Work Phone: [facility] Work Phone: 04-03-2021 10:09-0400 Body temperature 97.39 [degF] Jairo Fisher MD Work Phone: [facility] Work Phone: 04-03-2021 08:45-0400 Body mass index (BMI) [Ratio] 36.05 kg/m2 Jairo Fisher MD Work Phone: [facility] Work Phone: 04-03-2021 08:45-0400 Body weight 95.25 kg Jairo Fisher MD Work Phone: [facility] Work Phone: 03-13-2021 14:25-0400 Body height 162.6 cm Jairo Fisher MD Work Phone: [facility] Work Phone: Encounters Encounter Date Encounter Type Care Provider Facility Start: 07-18-2024 End: 07-18-2024 Emergency department patient visit [facility] Start: 07-11-2024 End: 07-11-2024 Emergency department patient visit [facility] Start: 07-09-2024 End: 07-09-2024 ambulatory [facility] Start: 07-09-2024 End: 07-09-2024 ambulatory [facility] Start: 06-28-2024 ambulatory [facility] Start: 06-24-2024 End: 06-24-2024 Emergency department patient visit DHARA Mchugh CHANNING [facility] Start: 06-16-2024 End: 06-16-2024 Emergency department patient visit [facility] Start: 05-30-2024 End: 05-30-2024 Emergency department patient visit MARINO WILKERSON [facility] Start: 05-24-2024 End: 05-24-2024 ambulatory JUAN CASEY [facility] Start: 04-04-2024 End: 04-05-2024 [facility] Start: 03-02-2024 End: 03-03-2024 Emergency department patient visit LYNN OSBORN [facility] Start: 03-01-2024 End: 03-02-2024 [facility] Start: 01-18-2024 End: 01-18-2024 Emergency department patient visit GLORIA TAYLOR [facility] Start: 12-12-2023 ambulatory Facility:Elma Connor Start: 12-10-2023 Telephone encounter Narinder villeda MD Work Phone: [facility] Comment on above: Sleep Lab ([facility]) Start: 12-08-2023 End: 12-08-2023 Office outpatient new 45 minutes Narinder Palomo MD Work Phone: [facility] Comment on above: Pulmonary nodule (Pr imary Dx); HERMILA (obstructive sleep apnea); Obesity (BMI 30-39.9) Start: 12-08-2023 End: 12-08-2023 [facility] Start: 12-02-2023 End: 12-02-2023 Office outpatient visit 15 minutes David Ybarra MD Work Phone: [facility] Comment on above: Other chest pain (Pr imary Dx); Essential hypertension Start: 12-02-2023 End: 12-02-2023 ambulatory COLUMBA Ivan [facility] Start: 11-18-2023 ambulatory [facility] Start: 10-26-2023 End: 10-27-2023 Emergency department patient visit JENI CATALAN [facility] Start: 10-21-2023 End: 10-21-2023 ambulatory KAYLA FORMAN Not Available Start: 09-28-2023 End: 09-29-2023 Emergency department patient visit BRUCE Malgorzata ERVINYanira [facility] Start: 09-28-2023 End: 09-28-2023 Emergency department patient visit [facility] Start: 09-24-2023 End: 09-25-2023 Emergency department patient visit HERMILO CUMMINGS [facility] Start: 05-15-2023 End: 05-16-2023 ambulatory HANNAH [facility] Start: 01-05-2023 End: 01-05-[address] LARISA WORRELL . Facility: Start: 05-29-2022 End: 05-29-2022 ambulatory Krishan Madrid Other [facility] [employer] Other Start: 05-29-2022 Office outpatient vi sit 15 minutes Krishan Madrid [facility] [place] Start: 04-18-2022 End: 04-18-2022 Subsequent hospital visit by physician Gloria Taylor DO Work Phone: [facility] Start: 04-10-2022 End: 04-11-2022 ambulatory DOCTOR MISC Facility:[facility]1 Start: 03-26-2022 ambulatory DOCTOR MISC Facility :[facility] Start: 02-11-2022 End: 02-12-[address] MOSS MISC Facility:[facility] Start: 04-03-2021 End: 04-03-2021 Subsequent hospital visit by physician Jairo Fisher MD Work Phone: [facility] Start: 09-07-2020 End: 09-07-2020 [facility] Start: 12-06-2019 End: 12-06-2019 Subsequent hospital visit by physician Jeni Antonio [facility] Comment on above: Encounter for well w domonique exam with routine gynecological exam Start: 07-14-2019 End: 07-15-2019 Evaluation and management of inpatient [facility] Facility:[facility] Start: 07-02-2019 End: 07-03-2019 Patient encounter procedure [facility] Facility:[facility] Start: 12-30-2018 End: 12-31-2018 Patient encounter procedure [facility] Facility:[facility] Start: 12-08-2018 End: 12-09-2018 Patient encounter procedure [facility] Facility:[facility] Start: 06-15-2018 Patient encounter status Abdulaziz Gonzalez MD Work Phone: [facility] Start: 12-22-2017 End: 12-23-2017 Ambulatory DEFAULT PHYSICIAN Facility:[facility] Start: 07-19-2013 End: 05-04-2020 Patient encounter status Jairo Fisher MD Work Phone: [facility] Procedures Date Procedure Procedure Detail Performing Clinician Start: 12-02-2023 Follow-up visit Follow-up OCLUMBA GONZALEZ Start: 06-22-2021 Adult depression screening assessment [...] DTaP,Tdap and Td Vaccines (2 - Tdap) [facility] Start: 06-14-2026 DTaP/Tdap/Td vaccine (2 - Tdap) DTaP/Tdap/Td vaccine (2 - Tdap) [facility] Start: 04-03-2026 Screening for malignant neoplasm of colon [facility] Start: 12-07-2024 Adult BMI Screening Adult BMI Screening [facility] Start: 12-07-2024 Tobacco Screening Tobacco Screening [facility] Start: 12-02-2024 Adult BMI Screening Adult BMI Screening [facility] Start: 12-02-2024 Tobacco Screening Tobacco Screening [facility] Start: 01-14-2024 Adult BMI Follow Up Plan Adult BMI Follow Up Plan [facility] Start: 12-08-2023 End: 12-08-2023 Patient encounter procedure 12/08/2023 10:00 AM EST Office Visit [facility] [address] [place] [address] Narinder Palomo MD [address] [facility] [place] [address] [facility] Start: 06-06-2023 COVID-19 Vaccine ( season) COVID-19 Vaccine ( season) [facility] Start: 06-22-2022 Depression Screening Depression Screening [facility] Start: 06-06-2022 Influenza vaccination Flu vaccine (#1) [facility] Start: 04-04-2022 Depression Screen Depression Screen [facility] [employer] Start: 03-15-2022 Screening for malignant neoplasm of breast Breast cancer screen [facility] Start: 06-06-2021 Influenza vaccination Flu vaccine (Season Ended) [employer] Phone: Start: 04-14-2021 Diabetic retinal exam Diabetic retinal exam [employer] Phone: Comment on above: Postponed from 01/11/1960 (Not Indicated ) Start: 04-10-2021 End: 04-10-2021 Patient encounter procedure 04/10/2021 Office Visit General Surgery Jairo Fisher MD [address] [place] [address] [address] [place] [address] [facility] Start: 04-04-2021 End: 04-04-2021 Patient encounter procedure 04/04/2021 Office Visit Obstetrics and Gynecology Inderjit Garcia MD [address] [place] [address] [address] [place] [address] [facility] Start: 04-04-2021 Annual Wellness Visit (AWV) Annual Wellness Visit (AWV) [employer] Phone: Comment on above: Postponed from 03/28/2019 (Not Indicated ) Start: 04-04-2021 Creatinine measurement Creatinine monitoring [employer] Phone: Comment on above: Postponed from 11/19/2018 (Not Indicated ) Start: 04-04-2021 Diabetic foot examination Diabetic foot exam [employer] Phone: Comment on above: Postponed from 01/11/1960 (Not Indicated ) Start: 04-04-2021 Diabetic microalbuminuria test Diabetic microalbuminuria test [employer] Phone: Comment on above: Postponed from 01/11/1968 (Not Indicated ) Start: 04-04-2021 Hemoglobin A1c measurement A1C test (Diabetic or Prediabetic) [employer] Phone: Comment on above: Postponed from 01/11/1960 (Not Indicated ) Start: 04-04-2021 Lipid panel Lipid screen [facility] [employer] Phone: Comment on above: Postponed from 01/11/1960 (Not Indicated ) Start: 04-04-2021 Potassium monitoring Potassium monitoring [facility] [employer] Phone: Comment on above: Postponed from 11/19/2018 (Not Indicated ) Start: 03-15-2020 Colon cancer screen colonoscopy Colon cancer screen colonoscopy [place], [place] Start: 03-28-2019 Annual Wellness Visit (AWV) Annual Wellness Visit (AWV) [place] Start: 11-19-2018 Creatinine monitoring Creatinine monitoring [place], [place] Start: 11-19-2018 Potassium monitoring Potassium [place], [place] Start: 10-11-2017 Breast cancer screen Breast cancer screen [place] Start: 07-14-2017 Pneumococcal 65+ years Vaccine (2 of 2 - PPSV23) Pneumococcal 65+ years Vaccine (2 of 2 - PPSV23) [place] Start: 09-08-2015 Shingles Vaccine (2 of 3) Shingles Vaccine (2 of 3) [place], [place] Start: 2015 DEXA (modify frequency per FRAX score) DEXA (modify frequency per FRAX score) [place], [place] Start: 2015 Fall Risk Screening Fall Risk Screening [facility] Start: 2005 Screening for osteoporosis DEXA (modify frequency per FRAX score) [facility] Start: 1995 Screening for malignant neoplasm of colon [facility] Start: 1969 Hepatitis B vaccine (1 of 3 - Risk 3-dose series) Hepatitis B vaccine (1 of 3 - Risk 3-dose series) [place] Start: 01-11-1968 Diabetic foot examination Diabetic Foot Exam [facility] Start: 01-11-1968 Diabetic microalbuminuria test Diabetic microalbuminuria test [place] Start: 01-11-1968 Diabetic retinal exam Diabetic retinal exam [facility] Start: 01-11-1968 Hepatitis C screening Hepatitis C screen [facility] [employer] Start: 01-11-1968 Urine screening for protein Diabetic microalbuminuria test [facility] [employer] Start: 1962 COVID-19 Vaccine (1) COVID-19 Vaccine (1) [employer] Phone: Start: 01-11-1960 [object Object] Diabetic foot exam [facility] [place] Start: 01-11-1960 A1C test (Diabetic or Prediabetic) A1C test (Diabetic or Prediabetic) [facility] [place] Start: 01-11-1960 Diabetic foot examination Diabetic foot exam [facility] Start: 01-11-1960 Diabetic retinal exam Diabetic retinal exam [facility] [place] Start: 01-11-1960 Hemoglobin A1c measurement A1C test (Diabetic or Prediabetic) [facility] Start: 01-11-1960 Lipid panel Lipids [facility] Start: 01-11-1960 Lipid screen Lipid screen [facility] [place] Start: 1955 COVID-19 Vaccine (1) COVID-19 Vaccine (1) [facility] [employer] Start: 1950 Annual Wellness Visit (AWV) Annual Wellness Visit (AWV) [facility] [employer] Start: 1950 Glaucoma screening [facility] Start: 1950 Hepatitis C screen Hepatitis C screen [facility] [place] Start: 1950 Hepatitis C screening [facility]atitis C screen [facility] Start: 1950 Medicare Annual Wellness Visit Medicare [facility] Visit [facility] End: 12-06-2019 Cytopathology procedure, preparation of smear, genital source PAP SMEAR Lab Routine Encounter for well woman exam with routine gynecological exam 1 Occurrences starting 12/06/2019 until 12/06/2019 [facility] [place] Comment on above: 1 Occurrences starting 12/06/2019 until 12/06/2019 End: 04-03-2021 Glucose [Mass/volume] in Serum or Plasma POCT glucose Point of Care Testing STAT One Time for 1 Occurrences starting 04/03/2021 until 04/03/2021 [employer] Phone: Comment on above: One Time for 1 Occurrences starting 03/07 until 04/03/2021 H. PYLORI DETECTION [facility] Work Phone: Comment on above: Release Upon Ordering for 1 Occurrences starting 04/03/2021 End: 04-03-2021 Protime-INR Protime-INR Lab STAT One Time for 1 Occurrences starting 04/03/2021 until 04/03/2021 [facility] Work Phone: Comment on above: One Time for 1 Occurrences starting 03/07 until 04/03/2021 End: 12-07-2024 PSG Diagnostic [facility] Routine HERMILA (obstructive sleep apnea) 1 Occurrences starting 12/08/2023 until 12/07/2024 [facility] Work Phone: Comment on above: 1 Occurrences starting 12/08/2023 until 12/07/2024 Surgical Pathology Surgical Path ology Lab Routine Release Upon Ordering for 1 Occurrences starting 04/03/2021 [facility] [employer] Phone: Comment on above: Release Upon Ordering for 1 Occurrences starting 04/03/2021 Immunizations Immunization Date Immunization Notes Care Provider Fa cili 07-14-2016 pneumococcal conjuga te vaccine, 13 valent [facility] 06-14-2016 diphtheria, tetanus toxoids and acellular pertussis vaccine [place], [place] 07-14-2015 zoster vaccine, live [place] Payers Date Payer Category Payer Medicare [id number] 2019 Medicare MEDICARE MEDICAR E PART A AND B xxxxxxxxxxx 2019-Present [phone] [place] [address] xxxxxxxxxxx [id number] 2019 Medicare 2018 Unknown 2017 Unknown [id number] 1990 Medicare [id number] 1959 Medicare [id number] 1950 Unknown [id number] 2.16.840.1.869712.3.579.2.196 1950 Unknown [id number] 2.16.840.1.497479.3.579.2.196 1950 Unknown [id number] 2.16.840.1.513239.3.579.2.196 1950 Unknown [id number] 2.16.840.1.442062.3.579.2.196 1950 Unknown [id number] 2.16.840.1.649087.3.579.2.593 1950 Unknown [id number] 2.16.840.1.206968.3.579.2.593 1950 Unknown [id number] 2.16.840.1.940841.3.579.2.593 1950 Unknown [id number] 2.16.840.1.677486.3.579.2.593 1950 Unknown [id number] 2.16.840.1.140944.3.579.2.173 1950 Unknown [id number] 2.16.840.1.748820.3.579.2.125 9 1950 Unknown [id number] 2.16.840.1.260693.3.579.2.128 6 1950 Unknown [id number] 2.16.840.1.963252.3.579.2.128 6 1950 Unknown [id number] 2.16.840.1.813274.3.579.2.128 6 1950 Unknown [id number] 2.16.840.1.020768.3.579.2.128 6 1950 Unknown [id number] 2.16.840.1.334489.3.579.2.128 1950 Unknown [id number] 2.16.840.1.060733.3.579.2.128 1950 Unknown [id number] 2.16.840.1.278232.3.579.2.128 1950 Unknown [id number] 2.16.840.1.996118.3.579.2.128 1950 Unknown [id number] 2.16.840.1.124826.3.579.2.128 1950 Unknown [id number] 2.16.840.1.657272.3.579.2.128 1950 Unknown [id number] 2.16.840.1.047884.3.579.2.128 1950 Unknown [id number] 2.16840.1.881238.3.579.2.128 1950 Unknown [id number] 2.16.840.1.917387.3.579.2.128 1950 Unknown [id number] 2.16.840.1.682549.3.579.2.128 1950 Unknown [id number] 2.16.840.1.643791.3.579.2.128 1950 Unknown [id number] 2.16840.1.444768.3.579.2.128 1950 Unknown [id number] 2.16.840.1.267228.3.579.2.128 1950 Unknown [id number] 2.16.840.1.518138.3.579.2.128 1950 Unknown [id number] 2.16.840.1.512146.3.579.2.128 1950 Unknown [id number] 2.16.840.1.422768.3.579.2.128 1950 Unknown [id number] 2.16.840.1.257898.3.579.2.128 6 1950 Unknown [id number] 2.16.840.1.791420.3.579.2.128 6 1950 Unknown [id number] 2.16.840.1.254731.3.579.2.128 6 1950 Unknown [id number] 2.16.840.1.697956.3.579.2.128 6 1950 Unknown [id number] 2.16.840.1.487149.3.579.2.128 6 Medicaid Self Pay [id number] Self-pay Self Pay [id number] Social History Date Type Detail Facility Start: 12-06-2019 End: 12-24-2022 Tobacco smoking status NHIS [place] sm[place] Start: 12-06-2019 End: 04-18-2022 Alcohol intake Current non-drinker of alcohol (finding) [place], [place] Start: 1950 Sex Assigned At Not on file [place], [place] Start: 1950 Sex Assigned At Female F [facility] Start: 04-03-2021 End: 12-24-2022 Tobacco use and exposure Never used [facility] Exposure to SARS-CoV -2 (event) Not sure [facility] Start: 10-28-2020 End: 12-02-2023 Sex Assigned At [facility] Start: 12-02-2023 End: 12-08-2023 Alcohol intake Ex-drinker (finding) [facility] Start: 10-28-2020 End: 12-02-2023 History of Social function [facility] Adolescent depressio n screening assessment 0 [facility] Medical Equipment Procedure Code Equipment Code Equipment Origin al Text Equipment Identifier Dates Mesh Srg Bard [id number] Hrn Sft Rpl [id number] - [id number] Start: 06-15-2018 Goals Date Patient Goal Desired Activity /State Clinical Notes 04-03-2021 to 12-10-2023 Telephone Encounter - Radha Landers - 12/10/2023 9:50 AM ESTTelephone Encounter - Radha Landers - 12/10/2023 9:50 AM Maurisio Palomo MD - 12/08/2023 10:00 AM EST Note Date & Type Note Facility 12-10-2023 Miscellaneous Notes 3/ received PSG order 3 patient will call back to schedule, sent letter with main phone number. Order Deferred PSG order and 3/4 Taleb notes in epic documented in this encounter [facility] 12-10-2023 Telephone encounter Note 3/4 received PSG order 3 patient will call back to schedule, sent letter with main phone number. Order Deferred PSG order and 3/4 Taleb notes in epic [facility] 12-08-2023 History of Presen t illness Narrative Images from the original note were not included. [facility] PULMONARY/SLEEP MEDICINE [address] [place] [phone] Subjective: Chief Complaint Pulmonary nodules HPI The patient is 73-year-old female who is here as a new patient. She was referred to us because of abnormal CT scan of the chest. She hadCT scan of the chest that was done in [facility] on 11/18/2023 showed multiple bilateral lung [...] Medical History: Diagnosis Date Deep vein thrombosis ([facility]) Diabetes mellitus type 2, controlled ([facility]) GERD (gastroesophageal reflux disease) Hyperlipidemia Hypertension Renal cyst 11/16/2019 Schizophrenia simplex ([facility]) Past Surgical History: Procedure Laterality Date BACK SURGERY 2014 fatty lipoma removed from back BREAST BIOPSY Left 2006 benign CHOLECYSTECTOMY COLONOSCOPY W/ POLYPECTOMY 2014 benign CYSTOSCOPY N/A 08/05/2023 Performed by Seb Aguirre MD at [facility] CYSTOSCOPY N/A 12/01/2018 Performed by Seb Aguirre MD at [facility] HIP SURGERY Left INCISIONAL HERNIA REPAIR 2009, 2016 INJECTION BLOCK EPIDURAL CAUDAL STEROID N/A 06/08/2021 Performed by Km Barba MD at [facility] INJECTION BLOCK EPIDURAL CAUDAL STEROID N/A 04/27/2021 Performed by Km Barba MD at [facility] INJECTION BLOCK NERVE MEDIAL BRANCH: bilat L 4/5 5/1 mbb Bilateral 01/19/2021 Performed by Km Barba MD at [facility] INJECTION BLOCK NERVE MEDIAL BRANCH: Bilat L 4/5 5/1 mbb Bilateral 12/01/2020 Performed by Km Barba MD at [facility] KNEE ARTHROSCOPY Bilateral KNEE SURGERY left total knee RADIOFREQUENCY ABLATION SPINAL: left L 4/5 5/1 Left 03/09/2021 Performed by Km Barba MD at [facility] RADIOFREQUENCY ABLATION SPINAL: right L 4/5 5/1 Right 02/23/2021 Performed by Km Barba MD at [facility] REPAIR OF RECURRENT ABDOMINAL HERNIA WITH BARD SOFT MESH, EXPLANTATION OF OLD MESH, T.A.R. PROCEDURE N/A 06/15/2018 Performed by Jose Vasquez MD at [facility] SURGERY REPLACEMENT TOTAL KNEE Right VAGINAL HYSTERECTOMY 1977 [...] this note were generated using voice recognition M*Modal dictation software. Although every effort was made to ensure the accuracy of this automated base ply hand, some errors in base ply hand may have occurred. documented in this encounter Jovie 12-02-2023 History of Presen t illness Narrative Mari Jamison Date of visit: 12/02/2023 Date of : 1950 Age: 73 y.o. Patient Active Problem List Diagnosis Diabetes mellitus ([facility]) Hyperlipidemia Essential hypertension Obesity, Class III, BMI 40-49.9 (morbid obesity) ([facility]) Osteoarthritis of right knee S/P right unicompartmental knee replacement Recurrent ventral hernia Pre-op testing Mixed stress and urge urinary incontinence Severe obesity (BMI 35.0-39.9) with comorbidity ([facility]) Lumbosacral spondylosis without myelopathy Renal cyst Other [...] type 2 diabetes mellitus. miscellaneous medical supply mis 1 tablet pseudoephedrine-guaiFENesin (MUCINEX D) 60-600 mg [...] antihypertensives this morning. Systolic blood pressures been 19166 mmHg at home. She actually physically feels well. She has been stressed out about her who has cognitive issues. No orthopnea. No PND. Past Medical History: Diagnosis Date Deep vein thrombosis ([facility]) Diabetes mellitus type 2, controlled ([facility]) GERD (gastroesophageal reflux disease) Hyperlipidemia Hypertension Renal cyst 11/16/2019 Schizophrenia simplex (CMS-HCC) No data recorded No data recorded No data recorded Past Surgical History: Procedure Laterality Date BACK SURGERY 2014 fatty lipoma removed from back BREAST BIOPSY Left 2006 benign CHOLECYSTECTOMY COLONOSCOPY W/ POLYPECTOMY 2014 benign CYSTOSCOPY N/A 08/05/2023 Performed by Seb Aguirre MD at [facility] CYSTOSCOPY N/A 12/01/2018 Performed by Seb Aguirre MD at [facility] HIP SURGERY Left INCISIONAL HERNIA REPAIR 2009, 2016 INJECTION BLOCK EPIDURAL CAUDAL STEROID N/A 06/08/2021 Performed by Km Barba MD at [facility] INJECTION BLOCK EPIDURAL CAUDAL STEROID N/A 04/27/2021 Performed by Km Barba MD at [facility] INJECTION BLOCK NERVE MEDIAL BRANCH: bilat L 4/5 5/1 mbb Bilateral 01/19/2021 Performed by Km Barba MD at [facility] INJECTION BLOCK NERVE MEDIAL BRANCH: Bilat L 4/5 5/1 mbb Bilateral 12/01/2020 Performed by Km Barba MD [facility] KNEE ARTHROSCOPY Bilateral KNEE SURGERY left total knee RADIOFREQUENCY ABLATION SPINAL: left L 4/5 5/1 Left 03/09/2021 Performed by Km Barba MD at [facility] RADIOFREQUENCY ABLATION SPINAL: right L 4/5 5/1 Right 02/23/2021 Performed by Km Barba MD at [facility] REPAIR OF RECURRENT ABDOMINAL HERNIA WITH BARD SOFT MESH, EXPLANTATION OF OLD MESH, T.A.R. PROCEDURE N/A 06/15/2018 Performed by Jose Vasquez MD at [facility] REPLACEMENT TOTAL KNEE Right VAGINAL [...] normal EF MPI 02/2021 2. Normal coronaries [facility] 2013 3. Normal EF TTE 02/2021 [...] DO Referring Physician: Gloria Taylor DO [address] [place] [address] documented in this encounter Jovie 05-29-2022 Evaluation note Encounter Date Diagnosis Assessment [...] an as-needed basis or is symptoms worsen. [employer] Other 06-29-2021 History of Present illness Narrative* [...] a responsible adult. Yes documented in this encounterCrispy Gamer Phone: evaluation note* Diagnosis GERD (gastroesophageal reflux disease)- Primary Esophageal reflux documented in this encounter [employer] Phone: evaluation note* Diagnosis Other chest pain- Primary Essential hypertension Unspecified essential hypertension [facility]* Diagnosis Pulmonary nodule- Primary Other diseases of lung, not elsewhere classified HERMILA (obstructive sleep apnea) Obstructive sleep apnea (adult) (pediatric) Obesity (BMI 30-39.9) documented in this encounter [facility] general Narrative - Reported* Type Description [...] History hysterectomy Hospitalization History See Sx Hx [employer] Other Hospital Discharge instructions* Instructions* Rimma Monroe [...] the nearest Emergency Room. documented in this encounterCrispy Gamer Phone: InstructionsNot on filedocumented in this encounter [facility]ructionsNot on filedocumented in this encounter [facility] SystemInstructionsNot on filedocumented in this encounter [facility] Summary Purpose Family History No Family History Records FoundNo Family History Records FoundNo Family History Records FoundNo Family History Records FoundNo Family History Records FoundNo Family History Records FoundNo Family History Records FoundNo Family History Records FoundNo Family History Records Found Advance Directives No Advanced Directives Records FoundDocuments on File Type Date Recorded Patient [employer] Expl anation Advance Directives and Living Will Power of Explosive Man Latest Code Status on File Code Status Date Activated Date Inactivated Comments Full Code 12/21/2012 12:14 PM 12/24/2012 4:06 PM Advance Directive Response Recorded Date/ Time Advance Directives No August 11:18am Documents on File Type Date Recorded Patient 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 Assessments Diagnosis Encounter for well woman exam with routine gynecological exam Chief Complaint and Reason for Visit Chief Complaint z78.0 Reason for Referral Specialty Diagnoses / Procedures Referred By Tommy monroe Referred To Contact Diagnoses HERMILA (obstructive sleep apnea) Procedures PSG Diagnostic Narinder Palomo MD [address] [facility] [place] [address] Referral ID Status Reason Start Date Expiration Date V isits Requested Visits Authorized [id number] Pending Review 12/08/2023 12/07/2024 1 1 Additional Source Comments INFORMATION SOURCE (unrecogn ized section and content) DATE CREATED AUTHOR 03/27/2018 [facility] DATE CREATED AUTHOR AUTHOR'S ORGANIZ ATION 09/21/2019 [facility] DATE CREATED AUTHOR AUTHOR'S ORGANIZ ATION 01/08/2023 [facility] DATE CREATED AUTHOR AUTHOR'S ORGANIZ ATION 03/17/2023 [facility] dical Specialist DATE CREATED AUTHOR AUTHOR'S ORGANIZ ATION 05/17/2023 [facility] DATE CREATED AUTHOR AUTHOR'S ORGANIZ ATION 10/22/2023 [facility] Specialists EPIC DATE CREATED AUTHOR AUTHOR'S ORGANIZ ATION 12/13/[address] [facility] DATE CREATED AUTHOR AUTHOR'S ORGANIZ ATION 07/20/2024 [facility] DATE CREATED AUTHOR AUTHOR'S ORGANIZ ATION 07/20/2024 [facility] Ambulatory [facility] Reason for Visit (unrecogniz ed section and content) Status Reason Specialty Diagnoses / Procedures Re ferred By Contact Referred To Contact Diagnoses Symptoms of gastroesophageal reflux Constipation REFLUX SYMPTOMS, CONSTIPATION Procedures WY COLONOSCOPY FLX DX W/COLLJ SPEC WHEN PFRMD WY ESOPHAGOGASTRODUODENOSCOPY TRANSORAL DIAGNOSTIC COLONOSCOPY DIAGNOSTIC EGD ESOPHAGOGASTRODUODENOSCOPY Jairo Fisher MD [address] [place] [address] [address] [place] [address] [facility] Reason Comments Follow-up EST PT F/U 1 YR L/S MS Reason Comments New Patient CT: 4PFT: n oneSOB: noneTobacco Use: neverStarted Tobacco: n/aHx Sleep Apnea: Yes, not currently on PAP Therapy, patient states she does not want to be on PAP therapyPS02/01/2021 Specialty Diagnoses / Procedures Referred By Tommy monroe Referred To Contact Pulmonary Medicine Diagnoses Pulmonary nodule Gloria Taylor DO [address] [place] [address] sp Pulm Sleep Med [address] [place] [address] Referral ID Status Reason Start Date Expiration Date Visits Requested Visits Authorized [id number] Pending Review Specialty Services Required 11/10/2023 11/09/2024 [...] Care Teams (unrecognized sec tion and content) 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 Cultivator Relationship Specialty Start Date End Date Gloria Taylor DO [address] [place], [place] [id number] PCP - General Family Medicine 05/09/21 Oyster Cultivator Relationship Specialty Start Date End Date Gloria Taylor DO [address] [place] [address] PCP - [facility] Medicine 03/28/23 Oyster Cultivator Relationship Specialty Start Date End Date Gloria Taylor DO [address] [place] [place] [address] PCP - General [facility] Medicine 03/28/23 Oyster Cultivator Relationship Specialty Start Date End Date Gloria Taylor DO [address] [place], [place] [id number] PCP - General Family Medicine 03/28/23 FOR [...] BE BASED ON THE PRIMARY CLINICAL RECORDS. [employer] [facility]. provides no warranty or guarantee of the accuracy or completeness of information in this document.
--- NOTE | 2024-07-26 13:48 | P.CN_ITS ---
Consult Note: HPI Data of Consult Patient: new to practice Consult date: 07/26/24 Requesting Physician: Nolberto Lerma MD Primary Care Provider: Non-Staff Physician, Consult Narrative Reason for consult: low back, bilateral lower extremity pain Narrative: 74yof who presents for evaluation. longstanding low back and bilateral leg pain >5 years. mri reviewed, which is significant for multilevel severe stenosis throughout lumbar spine, as well as severe facet arthropathy at multiple levels. recently saw spine surgeon, who did not recommend immediate surgery at the time. has continued in a series of provider directed home exercises >6 weeks, without lasting benefit. uses tylenol and nsaids, but denies relief. denies adverse med side effects. cc:: CC: Nolberto Lerma MD Review of Systems ROS Status of ROS 10 or more systems reviewed and unremark able except as noted in history and below PFSH PFSH Social History Smoking status: Never smoker Meds Home Medications and Allergies Home Medications ?Medication ?Instructions ?Recorded ?Confirmed ?Type atorvastatin 20 mg tablet 20 mg PO DAILY 10/31/23 01/18/24 History carvedilol 25 mg tablet 25 mg PO BID 10/31/23 01/18/24 History lisinopril 40 mg tablet 40 mg PO DAILY 10/31/23 01/18/24 History metformin 500 mg tablet 500 mg PO BID 10/31/23 01/18/24 History benzonatate 100 mg capsule 100 mg PO TID PRN cough #20 caps 03/04/24 Rx doxycycline hyclate 100 mg capsule 100 mg PO BID 10 days #20 caps 03/04/24 Rx loratadine 5 mg-pseudoephedrine ER 1 tab PO Q12H PRN nasal congestion 03/04/24 Rx 120 mg tablet,extended #20 tabs release,12hr (Claritin-D 12 Hour) methocarbamol 750 mg tablet 750 mg PO TID PRN pain #20 tabs 04/09/24 Rx tramadol 50 mg tablet 50 mg PO Q4H PRN pain 4 days #15 04/09/24 Rx tabs gabapentin 100 mg capsule 100 mg PO BID #10 caps 05/09/24 Rx acetaminophen 300 mg-codeine 30 mg 1 tab PO TID PRN pain #90 tabs 07/26/24 Rx tablet Allergies Allergy/AdvReac Type Severity Reaction Status Date / Time honey Allergy Severe Swelling Verified 05/09/24 17:15 of Lip/Tongue/Throat Penicillins Allergy Severe Swelling Verified 05/09/24 17:15 of Lip/Tongue/Throat Exam Narrative Exam Narrative: Psych-alert and oriented x 3. Attentive and appropriate, constitutionally normal, displays normal mood and affect per situation. There are no obvious deficits in memory, reasoning, or intellect.? Skin-no obvious rashes, bruising, erythema noted to the patient's area of pain.? Extremities- extremities are warm with minimal edema and palpable pulses. Lumbar-tenderness to palpation noted in the lumbar spine and paraspinal musculature. Pain is elicited with flexion, extension, and lateral rotation of the lumbar spine. Range of motion is diminished with these motions. Facet loading maneuvers are positive.? Strength-noted to be unremarkable with the exception of decreased strength rated at 4 out of 5 in bilateral quadriceps femoris, anterior tibialis. Sensory-no notable sensory deficits in the bilateral lower extremities to touch or pinprick in all dermatomal distributions with the exception to decreased sensation to the bilateral L4, 5 dermatomal distribution Sacroiliac - tender to palpation in bilateral psis. positive alexis's bilaterally. positive thigh thrust bilaterally. Coordination remains intact.? Gait remains non-antalgic. Assessment and Plan Assessment and Plan (1) Lumbar stenosis with neurogenic claudication: (2) Sacroiliac joint pain: (3) Lumbar spondylosis: Plan 74yof who presents for evaluation. failed conservative measures, as noted. imaging reviewed, as noted. given symptoms and imaging, may benefit from bilateral l4-5 transforaminal epidural steroid injection under fluoroscopic guidance. she may even benefit from bilateral sij injection. she is in agreement. meds reviewed. uds obtained. pdmp reviewed. will trial t#3 tid prn. follow up after procedure.
== END 2024-07-26 12:11 | disposition home or self-care (01) ==
PROVIDERS: Visit Provider Anesthesiology
DX: M48.062 Spinal stenosis, lumbar region with neurogenic claudication (principal); M53.3 Sacrococcygeal disorders, not elsewhere classified; M47.816 Spondylosis without myelopathy or radiculopathy, lumbar region
CPT/HCPCS: G0463

== ENCOUNTER 2024-08-01 12:33 | Observation (INO) | payer MEDICARE, SELFPAY ==
--- OUTSIDE RECORDS SUMMARY | 2024-08-01 12:48 | XMS_ITS | CCD ---
Author Organization [facility] CliniSyny Care Team Providers Care Director Biostatistics Name Role Phone PHYSICIAN, DEFAULT Unavailable Unavailable PHYSICIAN, DEFAULT Unavailable Unavailable DELFINO DICKERSONEDA O Unavailable Unavailable Jeni Antonio Primary Care Provider [phone] NON, STAFF, Primary Care Provider UnavailKrishan Stacy Attending Provider Unavailable Primary Care Provider Unavailbryson e Rumschlag DO, Gloria Primary Care Provider Krishan Madrid Unavailable MISC, DR MOSS Primary Care Unavailable [...] ., JUSTIN NIÑO Consulting Unavailabl e HAY Wang, DR PERES Admitting Unavailable SUSAN PENDLETON Consulting Unavailable HANNAH SOLER Referring Unavailable RUMSCHLAG, GLORIA Primary Care Unavailable PATSYMISKAYLA Attending Unavailable Rumschlag DO, Gloria K Primary Care Provider [phone] BRUCE GODWIN Attending Unavailable BRUCE GODWIN Referring Unavailable RUMSCHLAG, GLORIA K Primary Care Unavailable RUMSCHLAG, GLORIA K Primary Care Unavailable LINDY VILLATORO Attending Unavailable MUKHERJEE, BRISA L Primary Care Unavailable IRENA, LYNN Attending Unavailable IRENADELMALYNN Attending Unavailable IRENA, LYNN Referring Unavailable MUKHERJEE, BRISA L Primary Care Unavailable MUKHERJEE, BRISA L Primary Care Unavailable SAMANTHA CERDA Attending Unavailable BREWISSAMANTHA Attending Unavailable BREWIS, SAMANTHA Referring Unavailable MUKHERJEE, BRISA L Primary Care Unavailable MARITZA ZAMARRIPA Referring Unavailable MUKHERJEE, BRISA L Primary Care Unavailable MARINO WILKERSON Attending Unavailable SERVICES, [facility] Primary Care Unava ilable SERVICES, [facility] Primary Care Unava ilable DHARA SNELL Attending Unavailable SERVICES, [facility] Unava ilable HILL, OLEG ARAGON Referring Unavailable SERVICES, [facility] Unava ilable HILL, OLEG ARAGON Referring Unavailable SERVICES, [facility] Unava ilable SERVICES, [facility] Unava ilable COLUMBA NOLAN Attending Unavailable SERVICES, [facility] Unava ilable JOSE MARIA MCFARLANE Attending Unavailable RUMSCHLAG, GLORIA K Primary Care Unavailable CUMMINGS, HERMILO Attending Unavailable CUMMINGS, HERMILO Attending Unavailable CUMMINGS, HERMILO Referring Unavailable RUMSCHLAG, GLORIA K Primary Care [...] Unavailable RUMSCHLAG, GLORIA K Primary Care Unavailable JOHANNA RAY Attending Unavailable MARINO WILKERSON Referring Unavailable SERVICES, [facility] Primary Care Unava ilable RUMSCHLAG, GLORIA K Referring Unavailable RUMSCHLAG, GLORIA K Primary Care Unavailable Services, [facility] Primary Care Provider Maria Guadalupe ARORA, Nolberot Eldridge Attending Unavailable Unavailable Unavailable Unavailable Allergies Allergy Classification Reported Allergen(s) Allergy Type Date of Onset Reaction(s) Facility Penicillins (antibiotic) (1 source) Penicillins Drug Allergy 3 Hives, Nausea And Vomiting [facility] (5 sources) Honey; Translations: [HONEY] Drug allergy (disorder) 0 [facility] (6 sources) Penicillins; Translations: [PENICILLINS] Drug allergy (disorder) 9 Hives, Nausea And Vomiting [facility] (7 sources) Honey Propensity to adverse reactions to drug 3 Swelling [place], [place] (1 source) Penicillins Propensity to adverse reactions to drug 3 Hives, Nausea And Vomiting [place] (1 source) Penicillin Drug Allergy Unknown [facility] Other (4 sources) Penicillins Propensity to adverse reactions to drug 7 Hives, Nausea [facility] (6 sources) Perflutren; Translations: [PERFLUTREN LIPID MICROSPHERES] Drug Allergy 1 [facility] Work Phone: (1 source) Milk Products; Translations: [Milk Products] Propensity to adverse reactions to food (disorder) [facility] Repository Medications Current Medications Medication Drug Class(es) Dates Sig (Normalized) Sig (Original) 8 hr acetaminophen 650 mg extended release oral tablet (7 sources) acetaminophen (T YLENOL ARTHRITIS) 650 mg 8 hr tablet as needed. Active acetaminophen (T YLENOL ARTHRITIS) 650 mg 8 hr tablet as needed. 0 Active take 2 tablets by mo uth every six hours as needed for pain acetaminophen (TYLENOL) 500 MG tablet Ta ke 1,000 mg by mouth every 6 hours as needed for Pain. 0 Active atorvastatin 10 mg oral tablet (4 sources) HMG-CoA Reductase Inhibitor Start: 04-18-2021 take 1 tablet by mouth in the morning atorvastatin (LIPITOR) 10 mg tablet Take 1 tablet (10 mg total) by mouth in the morning. 04/18/2021 Active benzonatate 100 mg oral capsule (4 sources) Non-narcotic Antitussive Start: 09-20-2023 take 1 capsule by mouth every eight hours benzonatate (TESSALON PERLES) 100 mg capsule Take 1 capsule (100 mg total) by mouth every 8 (eight) hours. 21 capsule 09/20/2023 Active Calcium (4 sources) Phosphate Binder, Calcium CALCIUM ORAL Take by mouth daily. Active CALCIUM ORAL Darci e by mouth daily. 0 Active calcium chloride 0.0014 meq/ml / potassium chloride 0.004 meq/ml / sodium chloride 0.103 meq/ml / sodium lactate 0.028 meq/ml injectable solution (1 source) Start: 04-03-2021 lactated ringe rs infusion calcium citrate 1500 mg / cholecalciferol 250 unt oral tablet (3 sources) Vitamin D calcium citrate-vitamin D (CITRICAL + D) 315-250 MG-UNIT TABS Take by mouth 0 Active carvedilol 25 mg oral tablet (5 sources) alpha-Adrenerg ic Mook, beta-Adrenergi c Mook Start: 05-09-2023 take 1 tablet by [...] DAILY FOR 7 DAYS 0 04/14/2022 Active clotrimazole 10 mg/ml topical cream (2 sources) Azole Antifungal Start: 06-16-2024 clotrimazole (LOTRIMIN) 1 % cream Apply to affected area 2 times daily 15 g 06/16/2024 Active Start: 05-27-2022 End: 12-02-2023 clotrimazole (LOTRIMIN) 1 % cream Apply to affected area 2 times daily 15 g 0 05/27/2022 12/02/2023 Discontinued cyclobenzaprine hydrochloride 10 mg oral tablet (1 source) Muscle Relaxant Start: 07-11-2024 take 1 tablet by mouth twice daily as needed for muscle spasms cyclobenzaprine (FLEXERIL) 10 mg tablet Indications: Acute exacerbation of chronic low back pain Take 1 tablet (10 mg total) by mouth 2 (two) times a day as needed for muscle spasms. 10 tablet 07/11/2024 Active dexamethasone 1 mg oral tablet (1 source) Corticosteroid Start: 07-30-2024 End: 07-30-2024 take 1 tablet by mouth once in the evening dexAMETHasone (DECADRON) 1 mg tablet Indications: 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CMS-HCC) Take 1 tablet (1 mg total) by mouth once for 1 dose. Please take at 11:00 p.m. the night before cortisol lab test. 1 tablet 07/30/2024 07/30/2024 Active diclofenac sodium 0.01 mg/mg topical gel (1 source) Nonsteroidal Anti-inflammatory Drug Start: 07-18-2024 diclofenac sodium (VOLTAREN) 1 % gel Apply 2 g topically in the morning and 2 g at noon and 2 g in the evening and 2 g before bedtime. 100 g 07/18/2024 Active 0.5 ml dulaglutide 1.5 mg/ml auto-injector (6 sources) GLP-1 Receptor Agonist dulaglutide (TRULICITY) 0.75 mg/0.5 mL pen injector Inject under the skin every 7 days. Active Dulaglutide (B[place] LICITY SC) Inject into [...] propionate 0.05 mg/actuat metered dose nasal spray (4 sources) Corticosteroid Start: 2022 take 1 spray(s) nasal route in the morning fluticasone propionate (FLONASE) 50 mcg/actuation nasal spray Administer 1 spray into each nostril in the morning. 16 g 09/24/2023 Active glyBURIDE 5 mg oral tablet (6 sources) Sulfonylurea Start: 2020 glyBURIDE (DIABETA) 5 mg tablet Take 1 tablet (5 mg total) by mouth as needed. 12/14/2020 Active 12 hr guaiFENesin 600 mg / pseudoephedrine hydrochloride 60 mg extended release oral tablet (4 sources) alpha-Adrenergic Agonist Start: 2022 take 1 tablet by mouth every twelve hours pseudoephedrine-guai FENesin (MUCINEX D) 60-600 mg per 12 hr tablet Take 1 tablet by mouth every 12 (twelve) hours. 15 tablet 05/02/2023 Active hydrocortisone 10 mg/ml topical cream (1 source) Corticosteroid Start: 2020 hydrocortisone 1 % cream Apply to affected area 2 times daily 0 05/19/2021 Active ibuprofen 800 mg oral tablet (3 sources) Nonsteroidal Anti-inflammatory Drug take 1 tablet by mouth every eight hours as needed for pain ibuprofen (ADVIL;MOTRIN) 800 MG tablet Take 800 mg by mouth every 8 hours as needed for Pain 0 Active lidocaine 0.05 mg/mg medicated patch (2 sources) Antiarrhythmic, Amide Local Anesthetic Start: 2023 apply 1 dose transdermal route once daily, then apply 1 dose transdermal route every twelve hours lidocaine (LIDODERM) 5 % Indications: Bilateral low back pain with bilateral sciatica, unspecified chronicity Place 1 patch on the skin daily. Remove & Discard patch within 12 hours or as directed by [facility] patch 04/04/2024 Active Start: 10-26-2023 End: 12-02-2023 apply 1 dose transdermal route once daily, then apply 1 dose transdermal route every twelve hours lidocaine (LIDODERM) 5 % Place 1 patch on the skin daily. Remove & Discard patch within 12 hours or as directed by MD [facility] patch 0 10/26/2023 12/02/2023 Discontinued lisinopril 40 mg oral tablet (8 sources) Angiotensin Converting Enzyme Inhibitor Start: 08-15-2015 take 1 tablet by mouth in the morning lisinopril (PRINIVIL,ZESTRIL) 40 mg tablet Take 1 tablet (40 mg total) by mouth in the morning. 08/15/2015 Active take 2 tablets by mouth once wyatt ly lisinopril (PRINIVIL;ZESTRIL) 20 MG tablet Take 40 mg by mouth daily 0 Active metFORMIN hydrochloride 500 mg oral tablet (8 sources) Biguanide metFORMIN (GLUCO PHAGE) 500 mg tablet Indications: type 2 diabetes mellitus Take 1 tablet (500 mg total) by mouth in the morning and 1 tablet (500 mg total) before bedtime. Indications: type 2 diabetes mellitus. Active miscellaneous medical supply misc (4 sources) miscellaneous me dical supply misc 1 tablet Active miscellaneous me dical supply misc 1 tablet 0 Active mupirocin 20 mg/ml topical cream (1 source) RNA Synthetase Inhibitor Antibacterial Start: 08-09-2021 mupirocin (BACTROBAN ) 2 % cream Apply topically 3 times daily 0 08/09/2021 Active nystatin [id number] unt/ml topical cream (1 source) Polyene Antifungal Start: 01-18-2024 nystatin (M YCOSTATIN) cream Apply 1 Application topically in the morning and 1 Application before bedtime. 30 g 01/18/2024 Active sodium chloride 0.111 meq/ml nasal spray (6 sources) Start: 02-07-2023 sodium chlorid e (OCEAN) 0.65 % nasal spray Administer 1 spray into each nostril as needed for congestion. 15 mL 02/07/2023 Active Start: 04-03-2021 sodium chlorid e [...] tablet by mouth twice daily at bedtime sulfamethoxazole-t rimethoprim (BACTRIM DS;SEPTRA DS) 800-160 MG per tablet TAKE 1 TABLET BY MOUTH TWICE DAILY FOR 5 DAYS (MORNING AND BEFORE BEDTIME) 0 12/24/2021 Active triamcinolone acetonide 1 mg/ml topical cream (1 source) Corticosteroid Start: 01-18-2024 triamcinolone (KENALOG) 0.1 % cream Apply 1 Application topically in the morning and 1 Application before bedtime. 30 g 01/18/2024 Active Completed/Discontinued Medications Medication Drug Class(es) Dates [...] by mouth twice a week 0 Active estradiol 0.1 mg/ml vaginal cream (1 source) Estrogen Start: 08-05-2023 End: 12-02-2023 estradioL (ESTRACE) 0.01 % (0.1 mg/gram) vaginal cream Apply a small dab every other night around urethra 42.5 g 0 08/05/2023 12/02/2023 Discontinued Problems Active Problems Problem Classification Problem Date Documented Da te Episodic/Chronic Abdominal pain (2 sources) Abdominal pain; Translations: [Unspecified abdominal pain] Onset: 4 Episodic Diabetes mellitus without complication (8 sources) Diabetes mellitus; Translations: [Type 2 diabetes mellitus] Onset: 8 04-04-2020 Chronic Disorders of lipid metabolism (8 sources) Hyperlipidemia; Translations: [Hyperlipidemia, unspecified] Onset: 8 04-04-2020 Chronic E Codes: Fall (1 source) Fall Onset: 3 Esophageal disorders (3 sources) Gastroesophageal reflux disease; Translations: [Gastro-esophageal reflux disease without esophagitis] Onset: 1 Chronic Essential hypertension (8 sources) Hypertensive disorder; Translations: [Essential (primary) hypertension] Onset: 8 12-02-2023 Chronic Genitourinary symptoms and ill-defined conditions (5 sources) Mixed incontinence; Translations: [Mixed urinary incontinence] Onset: 8 08-05-2023 Chronic Genitourinary symptoms and ill-defined conditions (2 sources) Frequency of micturition; Translations: [Urgency of urination] Onset: 3 Episodic Osteoarthritis (7 sources) Osteoarthritis of right knee joint; Translations: [...] Resolved: 2 Episodic Other aftercare (1 source) 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; Translations: [HALFWAY USE ORAL HYPOGLYCEMIC DX] Onset: 3 Episodic Other aftercare (1 source) Other long term care administrator (current) drug therapy; Translations: [OTH FLOUR WORKER CURRENT DRUG THERAPY] Onset: 3 Episodic Other and unspecified benign neoplasm (1 source) History of polyp of colon; Translations: [Personal history of colonic polyps] Episodic Other connective tissue disease (1 source) Presence of left artificial knee joint; Translations: [PRESENCE LEFT ARTIFICIAL KNEE JOINT] Onset: 3 Chronic Other connective tissue disease (4 sources) History of prosthetic unicompartmental arthroplasty of right knee; Translations: [Presence of right artificial knee joint] Onset: 3 06-09-2018 Chronic Other connective tissue disease (1 source) Fibromyalgia; Translations: [FIBROMYALGIA] Onset: 3 Episodic Other connective tissue disease (1 source) Pain in lower limb Onset: 4 Episodic Other endocrine disorders (1 source) Adrenal incidentaloma; Translations: [Other specified disorders of adrenal gland] 07-30-2024 Chronic Other gastrointestinal disorders (4 sources) Dysphagia; Translations: [...] Chronic Other nutritional; endocrine; and metabolic disorders (6 sources) Severe obesity; Translations: [Morbid (severe) obesity due to excess calories] Onset: 3 04-04-2020 Chronic Other nutritional; endocrine; and metabolic disorders (4 sources) Body mass index 40+ - severely obese; Translations: [Morbid (severe) obesity due to excess calories] Onset: 3 06-09-2018 Chronic Other nutritional; endocrine; and metabolic disorders (13 sources) Body mass index 30+ - obesity; [...] disc disorders; other back problems (9 sources) Lumbosacral spondylosis without myelopathy; Translations: [Spondylosis [...] exam] Onset: 3 07-19-2013 Unclassified (1 source) HALFWAY INJECT NONINSULN ANTIDIAB; Translations: [HALFWAY INJECT NONINSULN ANTIDIAB] Onset: 3 Unclassified (1 [...] Date Documented Da te Episodic/Chronic Abdominal hernia (9 sources) Diaphragmatic hernia without obstruction or gangrene; Translations: [Recurrent hernia of anterior abdominal wall] Onset: 8 06-15-2018 Episodic Cardiac dysrhythmias (6 sources) Tachyarrhythmia ; Translations: [Tachycardia, unspecified] Onset: 8 04-04-2020 Episodic Inflammatory diseases of female pelvic organs (2 sources) Acute vaginitis; Translations: [Acute vaginitis] Onset: 0 04-04-2020 Episodic Mood disorders (4 sources) Mood disorders Onset: 1 06-22-2021 Nonspecific chest pain (10 sources) Chest pain; Translations: [Other chest pain] Onset: 0 12-02-2023 Episodic Other diseases of kidney and ureters (4 sources) Cyst of kidney; Translations: [Cyst of kidney, acquired] Onset: 0 05-22-2021 Episodic Other gastrointestinal disorders (3 sources) Alteration in bowel elimination; Translations: [Change in bowel habit] Onset: 4 03-15-2015 Episodic Other inflammatory condition of skin (1 source) Erythema intertrigo; Translations: [Erythema intertrigo] Onset: 4 Episodic Other lower respiratory disease (4 sources) Dyspnea; Translations: [Shortness of breath] Onset: [...] encounter] Onset: 3 Episodic Urinary tract infections (4 sources) Recurrent urinary tract infection; Translations: [Urinary tract infection, site not specified] Onset: 3 08-05-2023 Episodic Results Test Name Value Interpretation Reference Range Facility CBC AND AUTO DIFFon 07-11-20 24 ABSOLUTE BASOPHIL 0.1 X10E9/L Normal 0.0-0.2 [facility] Comment on above: Performed By: #### B MP, CBCA, 76329-8 #### [facility] ([id number]) [address] [place] [address] 59518 ABSOLUTE NEUTROPHIL 3.2 X10E9/L Normal 1.5-6.6 [facility] Comment on above: Performed By: #### B MP, CBCA, 87894-7 #### [facility] ([id number]) [address] [place] [address] 40673 Basophils/100 WBC (Bld) 1.2 % Normal [facility] Comment on above: Performed By: #### B MP, CBCA, 29073-8 #### [facility] ([id number]) [address] [place] [address] 02510 Eosinophils (Bld) [#/Vol] 0.2 10*3/uL Normal 0.0-0.4 [facility] Comment on above: Performed By: #### B MP, CBCA, 03540-9 #### [facility] ([id number]) [address] [place] [address] 62372 Eosinophils/100 WBC (Bld) 2.6 % Normal [facility] Comment on above: Performed By: #### B MP, CBCA, 33928-1 #### [facility] ([id number]) [address] [place] [address] 63198 Erythrocyte distribution wid th (RBC) [Ratio] 13.5 % Normal 11.5-15.0 [facility] Comment on above: Performed By: #### B ALAN, CBCA, 20691-2 #### [facility] ([id number]) [address] [place] [address] 26703 Hematocrit (Bld) [Volume fraction] 40.1 % Normal 35-47 [facility] Comment on above: Performed By: #### B ALAN, CBCA, 31355-3 #### [facility] ([id number]) [address] [place] [address] 70984 Hemoglobin (Bld) [Mass/Vol] 13.1 g/dL Normal 11.7-15. 5 [facility] Comment on above: Performed By: #### B ALAN, CBCA, 18337-5 #### [facility] ([id number]) [address] [place] [address] 84991 Lymphocytes (Bld) [#/Vol] 2.2 10*3/uL Normal 1.0-3.5 [facility] Comment on above: Performed By: #### B ALAN, CBCA, 94850-4 #### [facility] ([id number]) [address] [place] [address] 93517 Lymphocytes/100 WBC (Bld) 35.5 % Normal [facility] Comment on above: Performed By: #### B ALAN, CBCA, 68284-0 #### [facility] ([id number]) [address] [place] [address] 08698 MCH (RBC) [Entitic mass] 28.6 pg Normal 27-34 [facility] Comment on above: Performed By: #### B ALAN, CBCA, 88515-0 #### [facility] ([id number]) [address] [place] [address] 32578 MCHC (RBC) [Mass/Vol] 32.6 g/dL Normal 32-36 [facility] Comment on above: Performed By: #### B ALAN, CBCA, 33797-1 #### [facility] ([id number]) [address] [place] [address] 39933 MCV (RBC) [Entitic vol] 88 fL Normal 80-100 [facility] Comment on above: Performed By: #### B MP, CBCA, 16606-1 #### [facility] ([id number]) [address] [place] [address] 82255 Monocytes (Bld) [#/Vol] 0.5 10*3/uL Normal 0-0.9 [facility] Comment on above: Performed By: #### B ALAN, CBCA, 38631-5 #### [facility] ([id number]) [address] [place] [address] 41819 Monocytes/100 WBC (Bld) 8.9 % Normal [facility] Comment on above: Performed By: #### B ALAN, CBCA, 99940-4 #### [facility] ([id number]) [address] [place] [address] 43598 Neutrophils/100 WBC (Bld) 51.8 % Normal [facility] Comment on above: Performed By: #### B ALAN, CBCA, 45533-7 #### [facility] ([id number]) [address] [place] [address] 89730 Platelet mean volume (Bld) [Entitic vol] 8.5 fL Normal 7-12 [facility] Comment on above: Performed By: #### B MP, CBCA, 27894-8 #### [facility] ([id number]) [address] [place] [address] 71705 Platelets (Bld) [#/Vol] 245 10*3/uL Normal 150-450 [facility] Comment on above: Performed By: #### B MP, CBCA, 36266-3 #### [facility] ([id number]) [address] [place] [address] 08187 RBC COUNT 4.58 X10E12/L Normal 3.80-5.20 [facility] Comment on above: Performed By: #### B ALAN, CBCA, 46345-1 #### [facility] ([id number]) [address] [place] [address] 54821 WBC (Bld) [#/Vol] 6.1 10*3/uL Normal 4.0-11.0 [facility] Comment on above: Performed By: #### B ALAN, CBCA, 72701-8 #### [facility] ([id number]) [address] [place] [address] 44474 COMPREHENSIVE METABOLIC PANE Rommel 07-11-2024 Albumin [Mass/Vol] 4.2 g/dL Normal 3.2-5.3 [facility] Comment on above: Performed By: #### B ALAN, CBCA, 50139-9 #### [facility] ([id number]) [address] [place] [address] 34025 ALP [Catalytic activity/Vol] 72 U/L Normal 39-130 [facility] Comment on above: Performed By: #### B ALAN, CBCA, 48565-2 #### [facility] ([id number]) [address] [place] [address] 40326 ALT [Catalytic activity/Vol] 24 U/L Normal 0-31 [facility] Comment on above: Performed By: #### B ALAN, CBCA, 20171-3 #### [facility] ([id number]) [address] [place] [address] 12459 Anion gap [Moles/Vol] 9 mmol/L Normal 5-15 [facility] Comment on above: Performed By: #### B ALAN, CBCA, 47312-5 #### [facility] ([id number]) [address] [place] [address] 55760 AST [Catalytic activity/Vol] 24 U/L Normal 0-41 [facility] Comment on above: Performed By: #### B JERRI PHILLIPSA, 26782-0 #### [facility] ([id number]) [address] [place] [address] 23820 Bilirubin [Mass/Vol] 0.5 mg/dL Normal 0.3-1.2 [facility] Comment on above: Performed By: #### B ALAN CBCWing, 18962-1 #### [facility] ([id number]) [address] [place] [address] 77965 Calcium [Mass/Vol] 9.9 mg/dL Normal 8.5-10.5 [facility] Comment on above: Performed By: #### B ALAN CBCWing, 65201-7 #### [facility] ([id number]) [address] [place] [address] 21372 Chloride [Moles/Vol] 104 mmol/L Normal 98-109 [facility] Comment on above: Performed By: #### B ALAN CBCA, 30538-0 #### [facility] ([id number]) [address] [place] [address] 36156 CO2 [Moles/Vol] 23 mmol/L Normal 22-32 [facility] Comment on above: Performed By: #### B ALAN CBCA, 74753-3 #### [facility] ([id number]) [address] [place] [address] 23540 Creatinine [Mass/Vol] 0.74 mg/dL Normal 0.40-1.00 [facility] Comment on above: Result Comment: METH OD TRACEABLE TO IDMS STANDARD Performed By: #### B CHEYENNE PHILLIPS, 58742-0 #### [facility] ([id number]) [address] [place] [address] 33611 GFR/1.73 sq M.predicted marc g non-blacks MDRD (S/P/Bld) [Vol rate/Area] 85 mL/min/{1.73_m2} Normal >59 [facility] Comment on above: Result Comment: Reported eGFR is based on the CKD-EPI 2020 equation that does not use a race coefficient. Performed By: #### B CHEYENNE PHILLIPS, 30160-6 #### [facility] ([id number]) [address] [place] [address] 92867 Glucose [Mass/Vol] 269 mg/dL High 65-99 [facility] Comment on above: Performed By: #### [place], [address]-6 #### [facility] ([id number]) [address] [place] [address] 44649 Potassium [Moles/Vol] 4.4 mmol/L Normal 3.5-5.0 [facility] Comment on above: Performed By: #### [place], 96701-0 #### [facility] ([id number]) [address] [place] [address] 21235 Protein [Mass/Vol] 7.9 g/dL Normal 6.0-8.0 [facility] Comment on above: Performed By: #### [place], 82662-6 #### [facility] ([id number]) [address] [place] [address] 15633 Sodium [Moles/Vol] 136 mmol/L Normal 134-146 [facility] Comment on above: Performed By: #### [place], [address]-9 #### [facility] ([id number]) [address] [place] [address] 42666 Urea nitrogen [Mass/Vol] 26 mg/dL Normal 5-27 [facility] Comment on above: Performed By: #### [place], [address]-1 #### [facility] ([id number]) [address] [place] [address] 09592 Lactate (P sam) [Moles/Vol]o n 07-11-2024 LACTATE W/REFLEX 2.0 mmol/L Normal 0.4-2.0 [facility] Comment on above: Result Comment: Result did not trigger repeat Lactate, re-order if needed. Performed By: #### B ALAN CBCWing, 96803-0 #### [facility] ([id number]) [address] [place] [address] 88689 MAGNESIUMon 07-11-2024 Magnesium [Mass/Vol] 1.9 mg/dL Normal 1.8-2.6 [facility] Comment on above: Performed By: #### B ALAN CBCWing, 88562-3 #### [facility] ([id number]) [address] [place] [address] 42945 DEVAUGHN FECAL OCCULT BLDon 07-11 Hemoglobin.gastrointestinal Ql (Stl) Negative Normal NEG [facility] Comment on above: Performed By: #### B ALAN CBCWing, 35832-5 #### [facility] ([id number]) [address] [place] [address] 75651 DEXA SCAN CENTRAL SKELETALon 07-09-2024 DEXA SCAN CENTRAL SKELETAL DEXA SCAN [facility] TRA SKELETAL CLINICAL INFORMATION: Post-menopausal. , Post menopausal, [...] Hager MD on 07/09/2024 2:02 PM Normal [facility] MR LUMBAR SPINE WO CONTon MR LUMBAR SPINE WO CONT MR LUMBAR SPINE WO CONT *ADDENDUM*Addendum : IMPRESSION: Second sentence in the findings section should read: Lumbar vertebral body heights and signal are normal. Alignment normal except for L4-5 and L5-S1 spondylolisthesis. 27 Finalized by Ari Siegel MD on 07/09/2024 12:42 PM Normal [facility] URN MACROSCOPIC NURon 2023 BILIRUBIN DEVAUGHN Negative Normal NEG [facility] Comment on above: Performed By: #### B MP, CBCA, 00106-0 #### [facility] ([id number]) [address] [place] [address] 90741 BLOOD/HGB DEVAUGHN Trace Abnormal NEG [facility] Comment on above: Performed By: #### B MP, CBCA, 07641-0 #### [facility] ([id number]) [address] [place] [address] 78774 GLUCOSE DEVAUGHN Negative Normal NEG [facility] Comment on above: Performed By: #### B MP, CBCA, 19399-8 #### [facility] ([id number]) [address] [place] [address] 46978 KETONES DEVAUGHN Negative Normal NEG [facility] Comment on above: Performed By: #### B MP, CBCA, 95056-9 #### [facility] ([id number]) [address] [place] [address] 20665 LEUKOCYTE ESTERASE DEVAUGHN Negative Normal NEG [facility] Comment on above: Performed By: #### B JERRI PHILLIPSA, 78584-2 #### [facility] ([id number]) [address] [place] [address] 89239 NITRITE DEVAUGHN Negative Normal NEG [facility] Comment on above: Performed By: #### B ALAN CBCWing, 19184-7 #### [facility] ([id number]) [address] [place] [address] 20729 PH DEVAUGHN 5.5 Normal 5.0-8.5 [facility] Comment on above: Performed By: #### [place], [address]-3 #### [facility] ([id number]) [address] [place] [address] 72340 PROTEIN DEVAUGHN Negative Normal NEG [facility] Comment on above: Performed By: #### [place], [address]-2 #### [facility] ([id number]) [address] [place] [address] 74872 SPECIFIC GRAVITY DEVAUGHN >=1.030 Normal 1.003-[address] [place] [address] Comment on above: Performed By: #### Isabel PHILLIPS CBCA, 10331-5 #### [facility] ([id number]) [address] [place] [address] 37716 UROBILINOGEN DEVAUGHN 0.2 eu/dL Normal <1.1 [facility] Comment on above: Performed By: #### Isabel PHILLIPS CBCA, 09862-8 #### [facility] ([id number]) [address] [place] [address] 74038 URINE CULTUREon 05-30-2024 Bacteria identified Cx Nom (U) CULTURE R ESULTS 10-50,000 ORGANISMS/mL NORMAL UROGENITAL JOE Normal [facility] Comment on above: Performed By: #### B ALAN CBCA, 74181-2 #### [facility] ([id number]) [address] [place] [address] 97801 URN MACROSCOPIC NURon 2023 BILIRUBIN DEVAUGHN Negative Normal NEG [facility] Comment on above: Performed By: #### B MP, CBCA, 95857-0 #### [facility] ([id number]) [address] [place] [address] 46015 BLOOD/HGB DEVAUGHN Negative Normal NEG [facility] Comment on above: Performed By: #### B MP, CBCA, 98781-0 #### [facility] ([id number]) [address] [place] [address] 60302 GLUCOSE DEVAUGHN Negative Normal NEG [facility] Comment on above: Performed By: #### B MP, CBCA, 50182-5 #### [facility] ([id number]) [address] [place] [address] [place] [address] KETONES DEVAUGHN Negative Normal NEG [facility] Comment on above: Performed By: #### B MP, CBCA, 06815-5 #### [facility] ([id number]) [address] [place] [address] [place] [address] LEUKOCYTE ESTERASE DEVAUGHN Negative Normal NEG [facility] Comment on above: Performed By: #### B MP, CBCA, 91310-1 #### [facility] ([id number]) [address] [place] [address] [place] [address] NITRITE DEVAUGHN Negative Normal NEG [facility] Comment on above: Performed By: #### B MP, CBCA, 82763-4 #### [facility] ([id number]) [address] [place] [address] 11223 PH DEVAUGHN 5.5 Normal 5.0-8.5 [facility] Comment on above: Performed By: #### B MP, CBCA, 56422-5 #### [facility] ([id number]) [address] [place] [address] PROTEIN DEVAUGHN Negative Normal NEG [facility] Comment on above: Performed By: #### B ALAN CBCA, 99624-0 #### [facility] ([id number]) [address] [place] [address] SPECIFIC GRAVITY DEVAUGHN >=1.030 Normal 1.003-1 .03 5 [facility] Comment on above: Performed By: #### B ALAN, CBCA, 19461-9 #### [facility] ([id number]) [address] [place] [address] UROBILINOGEN DEVAUGHN 0.2 eu/dL Normal <1.1 [facility] Comment on above: Performed By: #### B ALAN, CBCA, 59337-9 #### [facility] ([id number]) [address] [place] [address] 21399 MR HIP RT WO CONTon 05-26-20 24 [...] Hodges MD on 05/26/2024 2:41 PM Normal [facility] XR SPINE LUMBAR 2 OR 3 [...] Ebenezer Tracey MD on 04/04/2024 3:35 AM Zana Doyle MD have personally reviewed the image(s) and agree with and/or edited the report 27 Finalized by Zana James MD on 04/04/2024 3:48 AM Normal [facility] XR CHEST 2 VWSon 03-02-2024 XR [...] Bradford MD on 03/02/2024 12:57 AM Normal [facility] SARS/FLU A+B/RSV by NAAT/Mol ecularon 03-01-2024 SARS/FLU [...] operators who are performing tests using either [employer] or [employer] systems and is limited to laboratories that [...] specimen repeat. Fact Sheet for Healthcare Providers: https://www.Spire.[employer]/9SLIDES/757635/maci nload Fact Sheet for Patients: https://www.[employer]/9SLIDES/389560/maci nload Normal [facility] Comment on above: Performed By: #### C OVFLR #### [facility] ([id number]) [address] [place] [address], [place] [address] XR RIBS RT 3 VWS W PA [...] Alvarenga MD on 10/26/2023 11:55 AM Normal [facility] XR SPINE LUMBAR 2 OR 3 [...] Mosley MD on 10/26/2023 11:56 AM Normal [facility] XR SPINE THORACIC 2 VWSon XR [...] Borjas MD on 10/26/2023 12:00 PM Normal [facility] XR FACIAL BONES MIN 3 VWSon [...] Mosley MD on 09/28/2023 8:37 AM Normal [facility] BASIC METABOLIC PANLon 09-24 Anion gap [Moles/Vol] 9 mmol/L Normal 5-15 [facility] Comment on above: Performed By: #### B CHEYENNE PHILLIPS, 72219-6 #### [facility] ([id number]) [address] [place] [address] 25065 Calcium [Mass/Vol] 9.3 mg/dL Normal 8.5-10.5 [facility] Comment on above: Performed By: #### B CHEYENNE PHILLIPS, 45673-5 #### [facility] ([id number]) [address] [place] [address] 77902 Chloride [Moles/Vol] 102 mmol/L Normal 98-109 [facility] Comment on above: Performed By: #### B CHEYENNE PHILLIPS, 46496-4 #### [facility] ([id number]) [address] [place] [address] 97544 CO2 [Moles/Vol] 26 mmol/L Normal 22-32 [facility] Comment on above: Performed By: #### B CHEYENNE PHILLIPS, 86187-5 #### [facility] ([id number]) [address] [place] [address] 51551 Creatinine [Mass/Vol] 0.64 mg/dL Normal 0.40-1.00 [facility] Comment on above: Result Comment: METH OD TRACEABLE TO IDMS STANDARD Performed By: #### B CHEYENNE PHILLIPS, 79276-8 #### [facility] ([id number]) [address] [place] [address] 69472 eGFR (CKD-EPI) NON-RACE DEPENDENT >90 Normal >59 [facility] Comment on above: Result Comment: Reported eGFR is based on the CKD-EPI 2020 equation that does not use a race coefficient. Performed By: #### B CHEYENNE PHILLIPS, 96220-3 #### [facility] ([id number]) [address] [place] [address] 51934 Glucose [Mass/Vol] 202 mg/dL High 65-99 [facility] Comment on above: Performed By: #### B MP, CBCA, 21293-5 #### [facility] ([id number]) [address] [place] [address] 01310 Potassium [Moles/Vol] 3.8 mmol/L Normal 3.5-5.0 [facility] Comment on above: Performed By: #### B MP, CBCA, 14485-5 #### [facility] ([id number]) [address] [place] [address] 94285 Sodium [Moles/Vol] 137 mmol/L Normal 134-146 [facility] Comment on above: Performed By: #### B MP, CBCA, 08343-9 #### [facility] ([id number]) [address] [place] [address] 07509 Urea nitrogen [Mass/Vol] 13 mg/dL Normal 5-27 [facility] Comment on above: Performed By: #### B MP, CBCA, 27264-8 #### [facility] ([id number]) [address] [place] [address] 14151 CBC AND AUTO DIFFon 12-20-20 23 ABSOLUTE BASOPHIL 0.1 X10E9/L Normal 0.0-0.2 [facility] Comment on above: Performed By: #### B MP, CBCA, 53794-7 #### [facility] ([id number]) [address] [place] [address] 98093 ABSOLUTE NEUTROPHIL 3.7 X10E9/L Normal 1.5-6.6 [facility] Comment on above: Performed By: #### B MP, CBCA, 34893-6 #### [facility] ([id number]) [address] [place] [address] 78995 Basophils/100 WBC (Bld) 1.2 % Normal [facility] Comment on above: Performed By: #### B MP, CBCA, 40990-6 #### [facility] ([id number]) [address] [place] [address] 45713 Eosinophils (Bld) [#/Vol] 0.4 10*3/uL Normal 0.0-0.4 [facility] Comment on above: Performed By: #### B MP, CBCA, 19218-3 #### [facility] ([id number]) [address] [place] [address] 72525 Eosinophils/100 WBC (Bld) 6.7 % Normal [facility] Comment on above: Performed By: #### B MP, CBCA, 42042-9 #### [facility] ([id number]) [address] [place] [address] 30950 Erythrocyte distribution wid th (RBC) [Ratio] 13.7 % Normal 11.5-15.0 [facility] Comment on above: Performed By: #### B MP, CBCA, 22456-8 #### [facility] ([id number]) [address] [place] [address] 42604 Hematocrit (Bld) [Volume fraction] 39.1 % Normal 35-47 [facility] Comment on above: Performed By: #### B ALAN, CBCA, 92245-0 #### [facility] ([id number]) [address] [place] [address] 17485 Hemoglobin (Bld) [Mass/Vol] 12.9 g/dL Normal 11.7-15. 5 [facility] Comment on above: Performed By: #### B MP, CBCA, 09780-5 #### [facility] ([id number]) [address] [place] [address] 15291 Lymphocytes (Bld) [#/Vol] 1.4 10*3/uL Normal 1.0-3.5 [facility] Comment on above: Performed By: #### B MP, CBCA, 66134-1 #### [facility] ([id number]) [address] [place] [address] 03623 Lymphocytes/100 WBC (Bld) 22.9 % Normal [facility] Comment on above: Performed By: #### B ALAN, CBCA, 15284-2 #### [facility] ([id number]) [address] [place] [address] 18500 MCH (RBC) [Entitic mass] 28.4 pg Normal 27-34 [facility] Comment on above: Performed By: #### B ALAN, CBCA, 85222-1 #### [facility] ([id number]) [address] [place] [address] 06210 MCHC (RBC) [Mass/Vol] 33.0 g/dL Normal 32-36 [facility] Comment on above: Performed By: #### B ALAN, CBCA, 60508-1 #### [facility] ([id number]) [address] [place] [address] 33203 MCV (RBC) [Entitic vol] 86 fL Normal 80-100 [facility] Comment on above: Performed By: #### B ALAN, CBCA, 79746-1 #### [facility] ([id number]) [address] [place] [address] 72111 Monocytes (Bld) [#/Vol] 0.6 10*3/uL Normal 0-0.9 [facility] Comment on above: Performed By: #### B ALAN, CBCA, 27542-5 #### [facility] ([id number]) [address] [place] [address] 42957 Monocytes/100 WBC (Bld) 9.8 % Normal [facility] Comment on above: Performed By: #### B ALAN, CBCA, 39606-1 #### [facility] ([id number]) [address] [place] [address] 85513 Neutrophils/100 WBC (Bld) 59.4 % Normal [facility] Comment on above: Performed By: #### B ALAN, CBCA, 04799-7 #### [facility] ([id number]) [address] [place] [address] 52869 Platelet mean volume (Bld) [Entitic vol] 8.4 fL Normal 7-12 [facility] Comment on above: Performed By: #### B ALAN, CBCA, 99470-4 #### [facility] ([id number]) [address] [place] [address] 01957 Platelets (Bld) [#/Vol] 219 10*3/uL Normal 150-450 [facility] Comment on above: Performed By: #### B ALAN, CBCA, 17717-6 #### [facility] ([id number]) [address] [place] [address] 27278 RBC COUNT 4.53 X10E12/L Normal 3.80-5.20 [facility] Comment on above: Performed By: #### B ALAN, CBCA, 39412-7 #### [facility] ([id number]) [address] [place] [address] 32297 WBC (Bld) [#/Vol] 6.2 10*3/uL Normal 4.0-11.0 [facility] Comment on above: Performed By: #### B ALAN, CBCA, 02459-2 #### [facility] ([id number]) [address] [place] [address] 18606 SARS/FLU A+B/RSV by NAAT/Mol [facility] 09-[facility]-2023 SARS/FLU A+B/RSV by NAAT/Molecular FLU [...] operators who are performing tests using either [employer] or [employer] systems and is limited to laboratories that [...] repeat. Fact Sheet for Healthcare Providers: https://www.fda.go v/media/101790/maci nload Fact Sheet for Patients: https://www.fda.go v/media/681545/maci nload Normal [facility] Comment on above: Performed By: #### C OVFLR #### [facility] ([id number]) [address] [place] [address], [place] [address] TROPONIN Ion 09-24-2023 Troponin I.cardiac [Mass/Vol] ng/mL Normal 0.00-0 .04 [facility] Comment on above: Performed By: #### B MP, CBCA, 11501-8 #### [facility] ([id number]) [address] [facility] [place] [address] XR CHEST 2 VWSon 09-24-2023 XR CHEST [...] Thomas Shrestha on 09/24/2023 9:20 AM Normal [facility] Cult,Urineon 05-16-2023 Cult,Urine Specimen Description .CLEAN CATCH URINE Culture NO SIGNIFICANT GROWTH Report Status FINAL 05/16/[address] [facility] Comment on above: Performed By: #### U RC #### [address] [address] [employer]or: Dallas Burton MD [facility] [address] [place] [address] [place] [address] [employer] Contractor: Lindy Odonnell MD Urinalysis w/ Microon 2022 Bilirubin, SemiQt,Ur Negative Normal NEG [facility] Comment on above: Performed By: #### U AMIC #### [facility] [address] [place] [address] [place] [address] [employer]or: Lindy Odonnell MD Blood, Urine Negative Normal NEG [facility] Comment on above: Performed By: #### U AMIC #### [facility] [address] [place] [address] [place] [address] [employer]or: Lindy Odonnell MD Clarity (U) Clear Normal CLEAR [facility] Comment on above: Performed By: #### U AMIC #### [facility] [address] [place] [address] [place] [address] [employer]or: Lindy Odonnell MD Color (U) Yellow Normal YEL [facility] Comment on above: Performed By: #### U AMIC #### [facility] [address] [place] [address] [employer]or: Lindy Odonnell MD Epithelial cells LM Ql (Urin e sed) 2 TO 5 Normal 0-[address] [facility] Comment on above: Performed By: #### U AMIC #### [facility] [address] [place], [place] [address] [employer]or: Lindy Odonnell MD Glucose Ql (U) Negative Normal NEG [facility] Comment on above: Performed By: #### U AMIC #### [facility] [address] [place], [place] [address]83 [employer]or: Lindy Odonnell MD Ketones Ql (U) Negative Normal NEG [facility] Comment on above: Performed By: #### U AMIC #### [facility] [address] [place], [place] [address] [employer]or: Linyd Odonnell MD Leukocyte esterase Test stri p Ql (U) Negative Normal [facility] Comment on above: Performed By: #### U AMIC #### [facility] [address] [place], [place] [phone] [employer]or: Lindy Odonnell MD Nitrite,Ur Negative Normal [facility] Comment on above: Performed By: #### U AMIC #### [facility] [address] [place], [place] [phone] [employer]or: Lindy Odonnell MD PH,Ur 5.5 Normal 5.0-9.[address] [facility] Comment on above: Performed By: #### U AMIC #### [facility] [address] [place], [place] 5[address] [employer]or: Lindy Odonnell MD Protein Ql (U) Negative Normal [facility] Comment on above: Performed By: #### U AMIC #### [facility] [address] [place], [place] 34[address] [employer]or: Lindy Odonnell MD Spec. [place],Ur 1.025 High 1.010-1.[address] [facility] Comment on above: Performed By: #### U AMIC #### [facility] [address] [place], [facility] [employer]or: Lindy Odonnell MD Urine RBC's 0 TO 2 Normal 0-[address] [facility] Comment on above: Performed By: #### U AMIC #### [facility] [address] [place], [place] [id number] [employer]or: Lindy Odonnell MD Urine WBC's 0 TO 2 Normal 0-[address] [facility] Comment on above: Performed By: #### U AMIC #### [facility] [address] [place], [place] [address] [employer]or: Lindy Odonnell MD Urobilinogen,Ur Normal Normal 0.0-1.[address] [facility] Comment on above: Performed By: #### U AMIC #### [facility] [address] [place], [place] [address]83 [employer]or: Lindy Odonnell MD CBC AUTO DIFFon 01-05-2023 BASO # 0.0 103/ul Normal 0.0-0.1 [facility] Comment on above: Performed By: #### C BC #### [facility] [address] [address] [address] Traci Cerna Basophils/100 WBC (Bld) 0.7 % Normal 0.2-2.0 [facility] Comment on above: Performed By: #### C BC #### [facility] [address] [address] [address] Traci Cerna EO # 0.2 103/ul Normal 0.0-0.7 [facility] Comment on above: Performed By: #### C BC #### [facility] [address] [place] [address] Dr. Traci Cerna Eosinophils/100 WBC (Bld) 3.5 % Normal 0.9-7.0 [facility] Comment on above: Performed By: #### C BC #### [facility] [address] [place] [address] Dr. Trcai Cerna Erythrocyte distribution wid th (RBC) [Ratio] 13.6 % Normal 11.0-15.0 [facility] Comment on above: Performed By: #### C BC #### [facility] [address] [place] [address] Dr. Traci Cerna Hematocrit (Bld) [Volume fraction] 38.9 % Normal 36.0-48.0 [facility] Comment on above: Performed By: #### C BC #### [facility] [address] [place] [address] Dr. Traci Cerna Hemoglobin (Bld) [Mass/Vol] 12.8 g/dL Normal 12.0-16. 0 [facility] Comment on above: Performed By: #### C BC #### [facility] [address] [place] [address] Dr. Traci Cerna IG # 0.01 10e3/ul Normal 0.00-0.03 [facility] Comment on above: Performed By: #### C BC #### [facility] [address] [place] [address] Dr. Traci Cerna IG % 0.2 % Normal 0.0-0.5 [facility] Comment on above: Performed By: #### C BC #### [facility] [address] [place] [address] Dr. Traci Cerna LYMPH # 2.0 103/ul Normal 1.2-3.8 [facility] Comment on above: Performed By: #### C BC #### [facility] [address] [place] [address] Dr. Traci Cerna Lymphocytes/100 WBC (Bld) 37.8 % Normal 20.5-60.0 [facility] Comment on above: Performed By: #### C BC #### [facility] [address] [place] [address] Dr. Traci Cerna MANUAL DIFF REQ NO Normal [facility] Comment on above: Performed By: #### C BC #### [facility] [address] [place] [address] Dr. Traci Cerna MCH (RBC) [Entitic mass] 28.6 pg Normal 26.7-34.0 [facility] Comment on above: Performed By: #### C BC #### [facility] [address] [place] [address] Dr. Traci Cerna MCHC (RBC) [Mass/Vol] 32.9 g/dL Normal 29.9-35.2 [facility] Comment on above: Performed By: #### C BC #### [facility] [address] [place] [address] Dr. Traci Cerna MCV (RBC) [Entitic vol] 86.8 fL Normal 81.0-99.0 [facility] Comment on above: Performed By: #### C BC #### [facility] [address] [place] [address] Dr. Traci Cerna MONO # 0.6 103/ul Normal 0.3-0.8 [facility] Comment on above: Performed By: #### C BC #### [facility] [address] [place] [address] Dr. Traci Cerna Monocytes/100 WBC (Bld) 10.8 % Normal 1.7-12.0 [facility] Comment on above: Performed By: #### C BC #### [facility] [address] [place] [address] Dr. Traci Cerna NEUT # 2.5 103/ul Normal 1.4-6.5 [facility] Comment on above: Performed By: #### C BC #### [facility] [address] [place] [address] Dr. Traci Cerna Neutrophils/100 WBC (Bld) 47.0 % Normal 43.0-75.0 [facility] Comment on above: Performed By: #### C BC #### [facility] [address] [place], [place] [address] Dr. Traci Cerna Platelet mean volume (Bld) [Entitic vol] 9.9 fL Normal 9.5-13.5 [facility] Comment on above: Performed By: #### C BC #### [facility] [address] [address] [address] Traci Cerna PLT 218 103/ul Normal 150-450 [facility] Comment on above: Performed By: #### C BC #### [facility] [address] [address] [address] Traci Cerna RBC 4.48 106/ul Normal 4.20-5.40 [facility] Comment on above: Performed By: #### C BC #### [facility] [address] [address] [address] Traci Cerna WBC 5.4 103/ul Normal 4.0-11.0 [facility] Comment on above: Performed By: #### C BC #### [facility] [address] [address] NECK ST WO [...] SUSAN PENDLETON Date: 2023-01-05 20:31 Normal [facility] PROF CHEM 8 (BAS METB)on Anion gap [Moles/Vol] 12.3 mmol/L Normal Th [facility] Comment on above: Performed By: #### T SH, BMP #### [facility] [address] [place] [address] Dr. Traci Cerna Calcium [Mass/Vol] 9.4 mg/dL Normal 8.5-10.1 [facility] Comment on above: Performed By: #### T SH, BMP #### [facility] [address] [place] [address] Dr. Traci Cerna Chloride [Moles/Vol] 105 mmol/L Normal 98-107 [facility] Comment on above: Performed By: #### T EMMA, BMP #### [facility] [address] [place] [address] Dr. Traci Cerna CO2 [Moles/Vol] 29.0 mmol/L Normal 21.0-32.0 [facility] Comment on above: Performed By: #### T EMMA, BMP #### [facility] [address] [place] [address] Dr. Traci Cerna Creatinine [Mass/Vol] 0.78 mg/dL Normal 0.55-1.02 [facility] Comment on above: Performed By: #### T EMMA, BMP #### [facility] [address] [place] [address] Dr. Traci Cerna EGFR-AF NAMIBIAN >60 Normal >=60 [facility] Comment on above: Performed By: #### T EMMA, BMP #### [facility] [address] [place] [address] Dr. Traci Cerna EGFR-NON AF NAMIBIAN >60 Normal >=60 [facility] Comment on above: Performed By: #### T EMMA, BMP #### [facility] [address] [place] [address] Dr. Traci Cerna Glucose [Mass/Vol] 178 mg/dL Critically high 74-106 [facility] Comment on above: Performed By: #### T EMMA, BMP #### [facility] [address] [place] [address] Dr. Traci Cerna Potassium [Moles/Vol] 4.3 mmol/L Normal 3.5-5.1 [facility] Comment on above: Performed By: #### T SH, BMP #### [facility] [address] [place] [address] Dr. Traci Cerna Sodium [Moles/Vol] 142 mmol/L Normal 136-145 [facility] Comment on above: Performed By: #### T SH, BMP #### [facility] [address] [place] [address] Dr. Traci Cerna Urea nitrogen [Mass/Vol] 21.0 mg/dL Critically high 7.0-18 .0 [facility] Comment on above: Performed By: #### T SH, BMP #### [facility] [address] [place] [address] Dr. Traci Cerna Urea nitrogen/Creatinine [Ma ss ratio] 26.9 mg/mg Normal [facility] Comment on above: Performed By: #### T SH, BMP #### [facility] [address] [place] [address] Dr. Traci Cerna TSHon 01-05-2023 TSH 0.650 uIU/mL Normal 0.358-3.74 0 [facility] Comment on above: Performed By: #### T SH, BMP #### [facility] [address] [place] [address] Dr. Traci Cerna US Thyroidon 12-30-2022 US Thyroid CLINICAL HISTORY: Enlarged thyroid on physical exam. COMPARISON: None available. TECHNIQUE: Ultrasound of the thyroid was performed with a regional survey. Reference: ACR Thyroid, Imaging Recording and Data System (TI-RADS): White paper of the ACR TI-RADS committee. Journal of the [employer] [employer]: Volume 14, issue 5, [...] by Mac Dai on 01/01/2023 0924 Normal [facility] [employer] Colonoscopy studyOrdered By: Jairo Fisher on 04-03-2021 No dictation [facility] Work Phone: [facility] Work Phone: EsophagogastroduodenoscopyOr dered By: Jairo Fisher on 04-03-2021 No dictation [facility] Work Phone: [facility] Work Phone: Vital Signs Date Time Vital Sign Value Performing Clinician Facility 12-08-2023 09:58-0500 Body height 162.6 cm Narinder Palomo MD Work Phone: [facility] 12-08-2023 09:58-0500 Body mass index (BMI) [Ratio] 33.99 kg/m2 Narinder Palomo MD Work Phone: [facility] 12-08-2023 09:58-0500 Body weight 89.81 kg Narinder Palomo MD Work Phone: [facility] 12-08-2023 09:58-0500 Diastolic blood pressure 98 mm[Hg] Narinder Palomo MD Work Phone: [facility] 12-08-2023 09:58-0500 Heart rate 95 /min Narinder Palomo MD Work Phone: [facility] 12-08-2023 09:58-0500 SaO2% (BldA) [Mass fraction] 96 % Narinder Palomo MD Work Phone: [facility] 12-08-2023 09:58-0500 Systolic blood pressure 158 mm[Hg] Narinder Palomo MD Work Phone: [facility] 12-02-2023 10:52-0500 Body height 162.6 cm Columba Gonzalez MD Work Phone: [facility] 12-02-2023 10:52-0500 Body mass index (BMI) [Ratio] 34.33 kg/m2 Columba Gonzalez MD Work Phone: [facility] 12-02-2023 10:52-0500 Body weight 90.72 kg Columba Gonzalez MD Work Phone: [facility] 12-02-2023 10:52-0500 Diastolic blood pressure 92 mm[Hg] Columba Gonzalez MD Work Phone: [facility] 12-02-2023 10:52-0500 Heart rate 95 /min Columba Gonzalez MD Work Phone: [facility] 12-02-2023 10:52-0500 SaO2% (BldA) [Mass fraction] 96 % Columba Gonzalez MD Work Phone: [facility] 12-02-2023 10:52-0500 Systolic blood pressure 160 mm[Hg] Columba Gonzalez MD Work Phone: [facility] 05-29-2022 14:30-0400 Body height 162.56 cm Krishan Madrid Other [facility] Other 05-29-2022 14:30-0400 Body mass index (BMI) [Ratio] 35.36 kg/m2 Krishan Madrid Other [facility] Other 05-29-2022 14:30-0400 Body weight 93.44 kg Krishan Madrid Other [facility] [employer] Other 04-03-2021 10:30-0400 Diastolic blood pressure 66 mm[Hg] Jairo Fisher MD Work Phone: [facility] Work Phone: 04-03-2021 10:30-0400 Heart rate 75 /min Jairo Fisher MD Work Phone: [facility] Work Phone: 04-03-2021 10:30-0400 Respiratory rate 18 /min Jairo Fisher MD Work Phone: [facility] Work Phone: 04-03-2021 10:30-0400 SaO2% (BldA) [Mass fraction] 94 % Jairo Fisher MD Work Phone: [facility] Work Phone: 04-03-2021 10:30-0400 Systolic blood pressure 118 mm[Hg] Jairo Fisher MD Work Phone: [facility] Work Phone: 04-03-2021 10:09-0400 Body temperature 97.39 [degF] Jairo Fisher MD Work Phone: [facility] Work Phone: 04-03-2021 08:45-0400 Body mass index (BMI) [Ratio] 36.05 kg/m2 Jairo Fisher MD Work Phone: [facility] Work Phone: 04-03-2021 08:45-0400 Body weight 95.25 kg Jairo Fisher MD Work Phone: [facility] Work Phone: 03-13-2021 14:25-0400 Body height 162.6 cm Jairo Fisher MD Work Phone: [facility] Work Phone: Encounters Encounter Date Encounter Type Care Provider Facility Start: 07-30-2024 End: 07-30-2024 Orders Only Johanna Ray MD Work Phone: [facility] Comment on above: Adrenal incidentalom a (CMS-HCC) (Primary Dx) Start: 07-26-2024 End: 07-26-2024 ambulatory Nolberto Lerma MD Facility:[facility] Start: 07-18-2024 End: 07-18-2024 Emergency department patient visit [facility] Start: 07-11-2024 End: 07-11-2024 Emergency department patient visit [facility] Start: 07-09-2024 End: 07-09-2024 ambulatory [facility] Start: 07-09-2024 End: 07-09-2024 ambulatory [facility] Start: 06-28-2024 ambulatory JOHANNA RAY [facility] Start: 06-24-2024 End: 06-24-2024 Emergency department patient visit DHARA SNELL [facility] Start: 06-16-2024 End: 06-16-2024 Emergency department patient visit [facility] Start: 05-30-2024 End: 05-30-2024 Emergency department patient visit MARINO WILKERSON [facility] Start: 05-24-2024 End: 05-24-2024 ambulatory MARITZA ZAMARRIPA [facility] Start: 04-04-2024 End: 04-05-2024 Emergency department patient visit SAMANTHA CERDA [facility] Start: 03-02-2024 End: 03-03-2024 Emergency department patient visit LYNN OSBORN [facility] Start: 03-01-2024 End: 03-02-2024 Emergency department patient visit BRISA MUKHERJEE [facility] Start: 01-18-2024 End: 01-18-2024 Emergency department patient visit GLORIA Dillon [facility] Start: 12-12-2023 ambulatory Facility:[facility] Start: 12-10-2023 Telephone encounter Narinder villeda MD Work Phone: [facility] Comment on above: Sleep Lab (PSG) Start: 12-08-2023 End: 12-08-2023 Office outpatient new 45 minutes Narinder Palomo MD Work Phone: [facility] Comment on above: Pulmonary nodule (Pr imary Dx); HERMILA (obstructive sleep apnea); Obesity (BMI 30-39.9) Start: 12-08-2023 End: 12-08-2023 ambulatory [facility] Start: 12-02-2023 End: 12-02-2023 Office outpatient visit 15 minutes David Ybarra MD Work Phone: [facility] Cardiology Comment on above: Other chest pain (Pr imary Dx); Essential hypertension Start: 12-02-2023 End: 12-02-2023 ambulatory COLUMBA Love CARLOS [facility] Start: 11-18-2023 ambulatory [facility] Start: 10-26-2023 End: 10-27-2023 Emergency department patient visit JENI CATALAN [facility] Start: 10-21-2023 End: 10-21-2023 ambulatory KAYLA FORMAN Not Available Start: 09-28-2023 End: 09-29-2023 Emergency department patient visit BRUCE GODWIN [facility] Start: 09-28-2023 End: 09-28-2023 Emergency department patient visit [facility] Start: 09-24-2023 End: 09-25-2023 Emergency department patient visit HERMILO CHAMORROGERS [facility] Start: 05-15-2023 End: 05-16-2023 [facility] Start: 01-05-2023 End: 01-05-[address] LARISA WORRELL . Facility:[facility] Start: 05-29-2022 End: 05-29-2022 ambulatory Krishan Madrid Other [facility] [employer] Other Start: 05-29-2022 Office outpatient vi sit 15 minutes Krishan Madrid [facility] Neurosurgery Start: 04-18-2022 End: 04-18-2022 Subsequent hospital visit by physician Gloria Taylor DO Work Phone: [facility] Start: 04-10-2022 End: 04-11-[address] DOCTOR US Facility:[facility] Start: 03-26-[address] DOCTOR SABILLONC Facility :[facility] Start: 02-11-2022 End: 02-12-[address] DOCTOR SABILLONC Facility:[facility] Start: 04-03-2021 End: 04-03-2021 Subsequent hospital visit by physician Jairo Fisher MD Work Phone: [facility] Start: 09-07-2020 End: 09-07-2020 Patient encounter [facility] Start: 12-06-2019 End: 12-06-2019 Subsequent hospital visit by physician Jeni Antonio [facility] Comment on above: Encounter for well w domonique exam with routine gynecological exam Start: 06-15-2018 Patient encounter status Abdulaziz Gonzalez MD [facility] Start: 12-22-2017 End: 12-23-2017 Ambulatory DEFAULT PHYSICIAN Facility:[facility] Start: 07-19-2013 End: 05-04-2020 Patient encounter status Jairo Fisher MD Work Phone: [facility] Procedures Date Procedure Procedure Detail Performing Clinician Start: 12-02-2023 Follow-up visit Follow-up COLUMBA GONZALEZ Start: 06-22-2021 Adult depression screening assessment Columba Gonzalez MD Work Phone: Start: 04-03-2021 End: 04-03-2021 Colonoscopy Jairo Fisher MD Work Phone: Start: 06-29-2021 Esophagogastroduodenoscopy Jairo matos MD Work Phone: Start: 09-07-2020 Dual energy X-ray photon absorptiometry STAFF, NON Start: 12-21-2012 History of operative procedure on knee S/P right unicompartmental knee replacement Jairo Fisher MD Work Phone: Plan of Treatment Date Care Activity Detail Author Start: 06-14-2026 DTaP,Tdap and Td Vaccines (2 - Tdap) DTaP,Tdap and Td Vaccines (2 - Tdap) [facility] Start: 06-14-2026 DTaP/Tdap/Td vaccine (2 - Tdap) DTaP/Tdap/Td vaccine (2 - Tdap) [facility] Start: 04-03-2026 Screening for malignant neoplasm of colon [facility] Start: 07-18-2025 Adult BMI Screening Adult BMI Screening [facility] Start: 07-18-2025 Tobacco Screening Tobacco Screening [facility] Start: 12-07-2024 Adult BMI Screening Adult BMI Screening [facility] Start: 12-07-2024 Tobacco Screening Tobacco Screening [facility] Start: 12-02-2024 Adult BMI Screening Adult BMI Screening [facility] Start: 12-02-2024 Tobacco Screening Tobacco Screening [facility] Start: 08-10-2024 End: 08-10-2024 Patient encounter procedure 08/10/2024 12:45 PM EST Office Visit [facility] [address] [place] [address] [place] [address] Seb Aguirre MD [address] [place] [address] [facility] Start: 06-06-2024 COVID-19 Vaccine ( season) COVID-19 Vaccine () [facility] Start: 06-06-2024 Influenza vaccination Influenza Vaccine [facility] Start: 01-14-2024 Adult BMI Follow Up Plan Adult BMI Follow Up Plan [facility] Start: 12-08-2023 End: 12-08-2023 Patient encounter procedure 12/08/2023 10:00 AM EST Office Visit [facility] [address] [place] [address] Narinder Palomo MD [address] [place] [address] [facility] Start: 06-06-2023 COVID-19 Vaccine ( season) COVID-19 [facility]ine ( season[facility] Start: 06-22-2022 Depression Screening [facility]ening [facility] Start: 06-06-2022 Influenza vaccination Flu vaccine (#1) [facility] [employer] Start: 04-04-2022 Depression Screen Depression Screen [facility] [employer] Start: 03-15-2022 Screening for malignant neoplasm of breast Breast cancer screen [employer] Start: 06-06-2021 Influenza vaccination Flu vaccine (Season Ended) [employer] Phone: Start: 04-14-2021 Diabetic retinal exam Diabetic retinal exam [employer] Phone: Comment on above: Postponed from 01/11/1960 (Not Indicated ) Start: 04-10-2021 End: 04-10-2021 Patient encounter procedure 04/10/2021 Office Visit General Surgery Jairo Fisher MD [address] [place] [address] [address] [place] [address] [facility] Start: 04-04-2021 End: 04-04-2021 Patient encounter procedure 04/04/2021 Office Visit Obstetrics and Gynecology Inderjit Garcia MD [address] [facility] [address] [place] [address] [facility] Start: 04-04-2021 Annual Wellness Visit (AWV) Annual Wellness Visit (AWV) [employer] Phone: Comment on above: Postponed from 03/28/2019 (Not Indicated ) Start: 04-04-2021 Creatinine measurement Creatinine monitoring [employer] Phone: Comment on above: Postponed from 11/19/2018 (Not Indicated ) Start: 04-04-2021 Diabetic foot examination Diabetic foot exam [employer] Phone: Comment on above: Postponed from 01/11/1960 (Not Indicated ) Start: 04-04-2021 Diabetic microalbuminuria test Diabetic microalbuminuria test [employer] Phone: Comment on above: Postponed from 01/11/1968 (Not Indicated ) Start: 04-04-2021 Hemoglobin A1c measurement A1C test (Diabetic or Prediabetic) [employer] Phone: Comment on above: Postponed from 01/11/1960 (Not Indicated ) Start: 04-04-2021 Lipid panel Lipid screen [employer] Phone: Comment on above: Postponed from 01/11/1960 (Not Indicated ) Start: 04-04-2021 Potassium monitoring Potassium monitoring [employer] Phone: Comment on above: Postponed from 11/19/2018 (Not Indicated ) Start: 03-15-2020 Colon cancer screen colonoscopy Colon cancer screen colonoscopy [place], [place] Start: 03-28-2019 Annual Wellness Visit (AWV) Annual Wellness Visit (AWV) [place] Start: 11-19-2018 Creatinine monitoring Creatinine monitoring [place], [place] Start: 11-19-2018 Potassium monitoring Potassium monitoring [place] Start: 10-11-2017 Breast cancer screen Breast cancer screen [place], [place] Start: 07-14-2017 Pneumococcal 65+ years Vaccine (2 of 2 - PPSV23) Pneumococcal 65+ years Vaccine (2 of 2 - PPSV23) [place] Start: 09-08-2015 Shingles Vaccine (2 of 3) Shingles Vaccine (2 of 3) [facility] [place] Start: 2015 DEXA (modify frequency per FRAX score) DEXA (modify frequency per FRAX score) [place], [place] Start: 2015 Fall Risk Screening Fall Risk Screening [facility] Start: 2005 Screening for osteoporosis DEXA (modify frequency per FRAX score) [facility] Start: 1995 Screening for malignant neoplasm of colon [facility] Start: 1969 Hepatitis B vaccine (1 of 3 - Risk 3-dose series) Hepatitis B vaccine (1 of 3 - Risk 3-dose series) [place], [place] Start: 01-11-1968 Diabetic foot examination Diabetic Foot Exam [facility] Start: 01-11-1968 Diabetic microalbuminuria test Diabetic microalbuminuria test [place] Start: 01-11-1968 Diabetic retinal exam Diabetic retinal exam [facility] Start: 01-11-1968 Hepatitis C screening Hepatitis C screen [facility] Start: 01-11-1968 Urine screening for protein Diabetic microalbuminuria test [facility] Start: 1962 COVID-19 Vaccine (1) COVID-19 Vaccine (1) [facility] Work Phone: Start: 1962 Depression Screening Depression Screening [facility] Start: 01-11-1960 [object Object] Diabetic foot exam [place], [place] Start: 01-11-1960 A1C test (Diabetic or Prediabetic) A1C test (Diabetic or Prediabetic) [place] Start: 01-11-1960 Diabetic foot examination Diabetic foot exam [facility] Start: 01-11-1960 Diabetic retinal exam Diabetic retinal exam [place], [place] Start: 01-11-1960 Hemoglobin A1c measurement A1C test (Diabetic or Prediabetic) [facility] Start: 01-11-1960 Lipid panel Lipids [facility] Start: 01-11-1960 Lipid screen Lipid screen [place], [place] Start: 1955 COVID-19 Vaccine (1) COVID-19 Vaccine (1) [facility] Start: 1950 Annual Wellness Visit (AWV) Annual Wellness Visit (AWV) [facility] Start: 1950 Glaucoma screening Diabetic Ophthalmology Exam [facility] Start: 1950 Hepatitis C screen Hepatitis C screen [employer] Start: 1950 Hepatitis C screening Hepatitis C screen [employer] Phone: Start: 1950 Medicare Annual Wellness Visit Medicare Annual Wellness Visit [facility] End: 07-30-2025 Aldosterone Note: Restrict Location Aldosterone Note: Restrict Location Lab Routine 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[facility]) 1 Occurrences starting 07/30/2024 until 07/30/2025 [facility] Comment on above: 1 Occurrences starting 07/30/2024 until 07/30/2025 End: 07-30-2025 Cortisol Cortisol Lab Routine 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[facility]-HCC) 1 Occurrences starting 07/30/2024 until 07/30/2025 [facility] Comment on above: 1 Occurrences starting 07/30/2024 until 07/30/2025 End: 12-06-2019 Cytopathology procedure, preparation of smear, genital source PAP SMEAR Lab Routine Encounter for well woman exam with routine gynecological exam 1 Occurrences starting 12/06/2019 until 12/06/2019 [employer] Comment on above: 1 Occurrences starting 12/06/2019 until 12/06/2019 End: 04-03-2021 Glucose [Mass/volume] in Serum or Plasma POCT glucose Point of Care Testing STAT One Time for 1 Occurrences starting 04/03/2021 until 04/03/2021 [employer] Phone: Comment on above: One Time for 1 Occurrences starting 03/07 until 04/03/2021 [employer] Phone: Comment on above: Release Upon Ordering for 1 Occurrences starting 04/03/2021 End: 07-30-2025 Metanephrines, Fractionated, Free, Plasma Metanephrines, Fractionated, Free, Plasma Lab Routine 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[facility]-HCC) 1 Occurrences starting 07/30/2024 until 07/30/2025 [facility] Comment on above: 1 Occurrences starting 07/30/2024 until 07/30/2025 End: 04-03-2021 Protime-INR Protime-INR Lab STAT One Time for 1 Occurrences starting 04/03/2021 until 04/03/2021 [facility] Work Phone: Comment on above: One Time for 1 Occurrences starting 03/07 until 04/03/2021 End: 12-07-2024 PSG Diagnostic [facility] Routine HERMILA (obstructive sleep apnea) 1 Occurrences starting 12/08/2023 until 12/07/2024 [employer] Work Phone: Comment on above: 1 Occurrences starting 12/08/2023 until 12/07/2024 End: 07-30-2025 Renin Activity Renin Activity Lab Routine 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[facility]-HCC) 1 Occurrences starting 07/30/2024 until 07/30/2025 [employer] Work Phone: Comment on above: 1 Occurrences starting 07/30/2024 until 07/30/2025 Surgical Pathology Surgical Path ology Lab Routine Release Upon Ordering for 1 Occurrences starting 04/03/2021 [facility] Work Phone: Comment on above: Release Upon Ordering for 1 Occurrences starting 04/03/2021 Immunizations Immunization Date Immunization Notes Care Provider Fa [facility] 08-22-2023 influenza virus vaccine, unspecified formulation Johanna Ray MD Work Phone: [facility] 07-14-2016 pneumococcal conjuga te vaccine, 13 valent [facility] 06-14-2016 diphtheria, tetanus toxoids and acellular pertussis vaccine [place], [place] 07-14-2015 zoster vaccine, live [place], [place] Payers Date Payer Category Payer Medicare ANTHEM MEDICARE [facility]LY [facility] MEDICARE ADVANTAGE [id number] 2023-Present [phone] [address] [place] [address] [id number] 2023 Medicare O [facility] MEDICARE [id number] 2023 Medicare [id number] 2019 Medicare MEDICARE MEDICAR E PART A AND B xxxxxxxxxxx 2019-Present [phone] [place] [address] xxxxxxxxxxx [id number] 2019 Unknown 2017 Unknown [id number] 1990 Medicare [id number] 1959 Medicare [id number] 1950 Unknown [id number] 2.16840.1.634569.3.579.2.593 1950 Unknown [id number] 2.16840.1.157391.3.579.2.593 1950 Unknown [id number] 2.16840.1.709211.3.579.2.593 1950 Unknown [id number] 2.16840.1.729291.3.579.2.593 1950 Unknown [id number] 2.16.840.1.773048.3.579.2.173 1950 Unknown [id number] 2.16.840.1.104236.3.579.2.125 9 1950 Unknown [id number] 2.16.840.1.866919.3.579.2.128 1950 Unknown [id number] 2.16.840.1.334919.3.579.2.128 1950 Unknown [id number] 2.16.840.1.206452.3.579.2.128 1950 Unknown [id number] 2.16.840.1.603509.3.579.2.128 1950 Unknown [id number] 2.16.840.1.262227.3.579.2.128 1950 Unknown [id number] 2.16.840.1.943361.3.579.2.128 1950 Unknown [id number] 2.16840.1.812147.3.579.2.128 1950 Unknown [id number] 2.16840.1.069598.3.579.2.128 1950 Unknown [id number] 2.840.1.044600.3.579.2.128 1950 Unknown [id number] 2.16840.1.932008.3.579.2.128 1950 Unknown [id number] 2.16840.1.169965.3.579.2.128 1950 Unknown [id number] 2.16840.1.166365.3.579.2.128 1950 Unknown [id number] 2.16840.1.509529.3.579.2.128 1950 Unknown [id number] 2.16.840.1.614516.3.579.2.128 1950 Unknown [id number] 2.16.840.1.783290.3.579.2.128 1950 Unknown [id number] 2.16.840.1.760467.3.579.2.128 1950 Unknown [id number] 2.16840.1.153690.3.579.2.128 6 1950 Unknown [id number] 2.16.840.1.385056.3.579.2.128 6 1950 Unknown [id number] 2.16.840.1.174444.3.579.2.128 6 1950 Unknown [id number] 2.16.840.1.686079.3.579.2.128 6 1950 Unknown [id number] 2.16.840.1.343029.3.579.2.128 6 1950 Unknown [id number] 2.16.840.1.372537.3.579.2.128 6 1950 Unknown [id number] 2.16.840.1.461455.3.579.2.128 6 1950 Unknown [id number] 2.16.840.1.961023.3.579.2.128 6 1950 Unknown [id number] 2.16.840.1.169813.3.579.2.128 6 1950 Unknown [id number] 2.16.840.1.124870.3.579.2.196 Medicaid Self Pay [id number] Self-pay Self Pay [id number] Social History Date Type Detail Facility Start: 12-06-2019 End: 12-24-2022 Tobacco smoking status NHIS Never smoker [place], [place] Start: 12-06-2019 End: 04-18-2022 Alcohol intake Current non-drinker of alcohol (finding) [place], [place] Start: 1950 Sex Assigned At Not on file M [place], [place] Start: 1950 Sex Assigned At Female F [facility] Start: 04-03-2021 End: 12-24-2022 Tobacco use and exposure Never used [facility] Exposure to SARS-CoV -2 (event) Not sure [facility] Start: 10-28-2020 End: 12-02-2023 Sex Assigned At [facility] Start: 12-02-2023 End: 07-18-2024 Alcohol intake Ex-drinker (finding) [facility] Start: 10-28-2020 End: 12-02-2023 History of Social function [facility] Adolescent depressio n screening assessment 0 [facility] Start: 05-11-2015 Sex Female (finding) [facility] Medical Equipment Procedure Code Equipment Code Equipment Origin al Text Equipment Identifier Dates Mesh Srg Bard [id number] Hrn Sft Rpl [id number] - [id number] Start: 06-15-2018 Goals Date Patient Goal Desired Activity /State Clinical Notes 04-03-2021 to 12-10-2023 Telephone Encounter - Radha Landers - 12/10/2023 9:50 AM ESTTelephone Encounter - Radha Landers - 12/10/2023 9:50 AM Maurisio Palomo MD - 12/08/2023 10:00 AM EST Note Date & Type Note Facility 12-10-2023 Miscellaneous Notes 3/4 received PSG order 3 patient will call back to schedule, sent letter with main phone number. Order Deferred PSG order and 3/4 Taleb notes in epic documented in this encounter [facility] 12-10-2023 Telephone encounter Note 3/4 received PSG order 12/09 patient will call back to schedule, sent letter with main phone number. Order Deferred PSG order and 3/4 Taleb notes in epic [facility] 12-08-2023 History of Presen t illness Narrative Images from the original note were not included. [facility] PUL[facility]LEEP [facility]IC[facility] [address] [address] Subjective: Chief Complaint Pulmonary nodules HPI The patient is 73-year-old female who is here as a new patient. She was referred to us because of abnormal CT scan of the chest. She hadCT scan of the chest that was done in [facility] on 11/18/2023 showed multiple bilateral lung nodules, tiny, largest 4 mm. Patient denies any shortness a breath. Patient never smoked. Patient had diagnostic sleep study on 02/01/2021 The apnea-hypopnea index (AHI) is 31.9 ([facility]) / 14 ([facility]) events per hour, and the lowest saturation [...] Medical History: Diagnosis Date Deep vein thrombosis ([facility]) Diabetes mellitus type 2, controlled ([facility]) GERD (gastroesophageal reflux disease) Hyperlipidemia Hypertension Renal cyst 11/16/2019 Schizophrenia simplex ([facility]) Past Surgical History: Procedure Laterality Date BACK SURGERY 2014 fatty lipoma removed from back BREAST BIOPSY Left 2006 benign CHOLECYSTECTOMY COLONOSCOPY W/ POLYPECTOMY 2014 benign CYSTOSCOPY N/A 08/05/2023 Performed by Seb Aguirre MD at [facility] CYSTOSCOPY N/A 12/01/2018 Performed by Seb Aguirre MD at [facility] HIP SURGERY Left INCISIONAL HERNIA REPAIR 2009, 2016 INJECTION BLOCK EPIDURAL CAUDAL STEROID N/A 06/08/2021 Performed by Km Barba MD at [facility] INJECTION BLOCK EPIDURAL CAUDAL STEROID N/A 04/27/2021 Performed by Km Barba MD at [facility] INJECTION BLOCK NERVE MEDIAL BRANCH: bilat L 4/5 5/1 mbb Bilateral 01/19/2021 Performed by Km Barba MD at [facility] INJECTION BLOCK NERVE MEDIAL BRANCH: Bilat L 4/5 5/1 mbb Bilateral 12/01/2020 Performed by Km Barba MD at [facility] KNEE ARTHROSCOPY Bilateral KNEE SURGERY left total knee RADIOFREQUENCY ABLATION SPINAL: left L 4/5 5/1 Left 03/09/2021 Performed by Km Barba MD at [facility] RADIOFREQUENCY ABLATION SPINAL: right L 4/5 5/1 Right 02/23/2021 Performed by Km Barba MD at [facility] REPAIR OF RECURRENT ABDOMINAL HERNIA WITH BARD SOFT MESH, EXPLANTATION OF OLD MESH, T.A.R. PROCEDURE N/A 06/15/2018 Performed by Jose Vasquez MD at [facility] REPLACEMENT TOTAL KNEE Right VAGINAL [...] to ensure the accuracy of this automated avionics systems repairer, some errors in avionics systems repairer may have occurred. documented in this encounter [facility][x+1] 12-02-2023 History of Presen t illness Narrative Negra Garcia Date of visit: 12/02/2023 Date of : 1950 Age: 73 y.o. Patient Active Problem List Diagnosis Diabetes mellitus ([facility]) Hyperlipidemia Essential hypertension Obesity, Class III, BMI 40-49.9 (morbid obesity) ([facility]) Osteoarthritis of right knee S/P right unicompartmental knee replacement Recurrent ventral hernia Pre-op testing Mixed stress and urge urinary incontinence Severe obesity (BMI 35.0-39.9) with comorbidity ([facility]) Lumbosacral spondylosis without myelopathy Renal cyst Other [...] type 2 diabetes mellitus. miscellaneous medical supply [facility] 1 tablet pseudoephedrine-guaiFENesin (MUCINEX D) 60-600 mg [...] antihypertensives this morning. Systolic blood pressures been 52631 mmHg at home. She actually physically feels well. She has been stressed out about her who has cognitive issues. No orthopnea. No PND. Past Medical History: Diagnosis Date Deep vein thrombosis ([facility]) Diabetes mellitus type 2, controlled ([facility]) GERD (gastroesophageal reflux disease) Hyperlipidemia Hypertension Renal cyst 11/16/2019 Schizophrenia simplex ([facility]) No data recorded No data recorded No data recorded Past Surgical History: Procedure Laterality Date BACK SURGERY 2014 fatty lipoma removed from back BREAST BIOPSY Left 2006 benign CHOLECYSTECTOMY COLONOSCOPY W/ POLYPECTOMY 2014 benign CYSTOSCOPY N/A 08/05/2023 Performed by Seb Aguirre MD at [facility] CYSTOSCOPY N/A 12/01/2018 Performed by Seb Aguirre MD at [facility] HIP SURGERY Left INCISIONAL HERNIA REPAIR 2009, 2016 INJECTION BLOCK EPIDURAL CAUDAL STEROID N/A 06/08/2021 Performed by Km Barba MD at [facility] INJECTION BLOCK EPIDURAL CAUDAL STEROID N/A 04/27/2021 Performed by Km Barba MD at [facility] INJECTION BLOCK NERVE MEDIAL BRANCH: bilat L 4/5 5/1 mbb Bilateral 01/19/2021 Performed by Km Barba MD at [facility] INJECTION BLOCK NERVE MEDIAL BRANCH: Bilat L 4/5 5/1 mbb Bilateral 12/01/2020 Performed by Km Barba MD at [facility] KNEE ARTHROSCOPY Bilateral KNEE SURGERY left total knee RADIOFREQUENCY ABLATION SPINAL: left L 4/5 5/1 Left 03/09/2021 Performed by Km Barba MD at [facility] RADIOFREQUENCY ABLATION SPINAL: right L 4/5 5/1 Right 02/23/2021 Performed by Km Barba MD at [facility] REPAIR OF RECURRENT ABDOMINAL HERNIA WITH BARD SOFT MESH, EXPLANTATION OF OLD MESH, T.A.R. PROCEDURE N/A 06/15/2018 Performed by Jose Vasquez MD at [facility] SURGERY REPLACEMENT TOTAL KNEE Right VAGINAL HYSTERECTOMY 1976 [...] normal EF MPI 02/2021 2. Normal coronaries [facility] 2013 3. Normal EF TTE 02/2021 4. [...] TAYLOR DO Referring Physician: Gloria Taylor DO [address] [place] [address] documented in this encounter [facility] 05-29-2022 Evaluation note Encounter Date Diagnosis Assessment [...] an as-needed basis or is symptoms worsen. [facility] Other 06-29-2021 History of Present illness Narrative* [...] a responsible adult. Yes documented in this encounterCoffee Meets Bagel Phone: evaluation note* Diagnosis GERD (gastroesophageal reflux disease)- Primary Esophageal reflux documented in this encounter [employer] Phone: evaluation note* Diagnosis Other chest pain- Primary Essential hypertension Unspecified essential hypertension documented in this encounter [facility]* Diagnosis Pulmonary nodule- Primary Other diseases of lung, not elsewhere classified HERMILA (obstructive sleep apnea) Obstructive sleep apnea (adult) (pediatric) Obesity (BMI 30-39.9) documented in this encounter [facility]* Diagnosis 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CMS-HCC)- Primary documented in this encounter [facility] SystemHistory general Narrative - Reported* Type Description [...] History hysterectomy Hospitalization History See Sx Hx [facility] Other Hospital Discharge instructions* Instructions* Rimma Monroe [...] the nearest Emergency Room. documented in this encounterTavern Work Phone: InstructionsNot on filedocumented in this encounter [facility] filedocumented in this [facility]ructionsNot on filedocumented in this encounter [facility]ructionsNot on filedocumented in this encounter [facility] Summary Purpose Family History No Family History Records FoundNo Family History Records FoundNo Family History Records FoundNo Family History Records FoundNo Family History Records FoundNo Family History Records FoundNo Family History Records FoundNo Family History Records FoundNo Family History Records Found Advance Directives No Advanced Directives Records FoundDocuments on File Type Date Recorded Patient Staff Submarine Warfare Officer Expl anation Advance Directives and Living Will Power of Meat And Seafood Clerk Latest Code Status on File Code Status Date Activated Date Inactivated Comments Full Code 12/21/2012 12:14 PM 12/24/2012 4:06 PM Advance Directive Response Recorded Date/ Time Advance Directives No August 11:18am Documents on File Type Date Recorded Patient Staff Submarine Warfare Officer Expl anation ACP-Advance Directive ACP-Power of Meat And Seafood Clerk Latest Code Status on File Code Status Date Activated Date Inactivated Comments Full Code 04/03/2021 8:29 AM Full Code 12/21/2012 12:14 PM 12/24/2012 4:06 PM Documents on File Type Date Recorded Patient Staff Submarine Warfare Officer Expl anation ACP-Advance Directive ACP-Power of Meat And Seafood Clerk Latest Code Status on File Code Status [...] Code 06/15/2018 3:10 PM 06/24/2018 6:17 PM Date Activated Date Inactivated Comments 06/15/2018 3:10 PM 06/24/2018 6:17 PM Assessments Diagnosis Encounter for well woman exam with routine gynecological exam Chief Complaint and Reason for Visit Chief Complaint z78.0 Reason for Referral Specialty Diagnoses / Procedures Referred By Tommy monroe Referred To Contact Diagnoses HERMILA (obstructive sleep apnea) Procedures PSG Diagnostic Narinder Palomo MD [address] [facility] [facility] [address] [place] [address] Referral ID Status Reason Start Date Expiration Date V isits Requested Visits Authorized [id number] Pending Review 12/08/2023 12/07/2024 1 1 Additional Source Comments INFORMATION SOURCE (unrecogn ized section and content) DATE CREATED AUTHOR 03/27/2018 [facility] DATE CREATED AUTHOR AUTHOR'S ORGANIZ ATION 01/08/2023 [facility] DATE CREATED AUTHOR AUTHOR'S ORGANIZ ATION 03/17/[address] [facility] dical Specialist DATE CREATED AUTHOR AUTHOR'S ORGANIZ ATION 05/17/2023 [facility] DATE CREATED AUTHOR AUTHOR'S ORGANIZ ATION 10/22/[address] [facility] dical Specialists [facility] DATE CREATED AUTHOR AUTHOR'S ORGANIZ ATION 12/13/2023 [facility] DATE CREATED AUTHOR AUTHOR'S ORGANIZ ATION 07/20/2024 [facility] DATE CREATED AUTHOR AUTHOR'S ORGANIZ ATION 07/20/2024 [facility] DATE CREATED AUTHOR AUTHOR'S ORGANIZ ATION 08/01/2024 [facility] Reason for Visit (unrecogniz ed section and content) Status Reason Specialty Diagnoses / Procedures Re ferred By Contact Referred To Contact Diagnoses Symptoms of gastroesophageal reflux Constipation REFLUX SYMPTOMS, CONSTIPATION Procedures ID COLONOSCOPY FLX DX W/COLLJ SPEC WHEN PFRMD ID ESOPHAGOGASTRODUODENOSCOPY TRANSORAL DIAGNOSTIC COLONOSCOPY DIAGNOSTIC EGD ESOPHAGOGASTRODUODENOSCOPY Jairo Fisher MD [address] [place] [address] [facility] Reason Comments Follow-up EST PT F/U 1 YR L/S MS Reason Comments New Patient CT: 4PFT: n oneSOB: noneTobacco Use: neverStarted Tobacco: n/aHx Sleep Apnea: Yes, not currently on PAP Therapy, patient states she does not want to be on PAP therapyPS02/01/2021 Specialty Diagnoses / Procedures Referred By Tommy monroe Referred To Contact Pulmonary Medicine Diagnoses Pulmonary nodule Gloria Taylor DO [address] [place] [address] [facility] [address] [facility] [address] Referral ID Status Reason Start Date Expiration Date Visits Requested Visits Authorized [id number] Pending Review Specialty Services Required 11/10/2023 11/09/2024 [...] Care Teams (unrecognized sec tion and content) Director Biostatistics Relationship Specialty Start Date End Date Gloria Taylor DO [address] [place] [address] PCP - General Family Medicine 05/09/21 Director Biostatistics Relationship Specialty Start Date End Date Gloria Taylor DO [address] [place] [address] PCP - General Family Medicine 03/28/23 Director Biostatistics Relationship Specialty Start Date End Date Stephaniersoibel Gloria Dillon DO [address] [place] [address] PCP - General Family Medicine 03/28/23 Director Biostatistics Relationship Specialty Start Date End Date StephanierosibelGloria DO [address] [place], [place] [id number] PCP - General Family Medicine 03/28/23 Director Biostatistics Relationship Specialty Start Date End Date [facility] [address] [place] PCP - General Family Medicine 07/18/24 FOR RECORDS PERTAINING TO PATIENTS WHO ARE [...] BE BASED ON THE PRIMARY CLINICAL RECORDS. [facility] [employer] [facility]. provides no warranty or guarantee of the accuracy or completeness of information in this document.
[2024-08-01 12:52] VITALS: BP 155/92; PULSE 90; TEMP 37.1; O2SAT 97; BMI 32.4
--- NOTE | 2024-08-01 14:31 | CT_ITS ---
[address] [address] Patient Name: MARI JAMISON MRN: [id number] date: 1950 Sex: F Assigned Patient Location: ER Current Patient Location: ER Accession/Order Number: [id number] Exam Date: 08/01/2024 15:18 Report Date: 08/01/2024 16:20 At the request of: DANIELLE GREEN Procedure: CT lumbar spine wo con EXAM: CT lumbar spine wo con HISTORY: back pain and incontinence COMPARISON: None. TECHNIQUE: CT lumbar spine noncontrast. Axial scans with reformatted coronal and sagittal images. Individualized radiation dose reduction used for this exam. FINDINGS: 5 lumbar vertebra. No fracture or suspicious focal bone lesion. SI joint sclerosis felt to be degenerative. Right renal cyst medially as seen on previous abdominal pelvic CT. L4-L5: Anterolisthesis 7 mm secondary to facet DJD. Moderate disc space narrowing minor spurring. Severe facet arthropathy with hypertrophy, ligament thickening and disc bulging results in severe canal stenosis and moderate to severe left foraminal stenosis. L3-L4: Moderate disc space narrowing, vacuum disc and diffuse disc bulging. Minor spurring. Severe facet arthropathy with ligament thickening results in moderate to severe canal stenosis and moderate left, mild right foraminal stenosis L1-L2: Moderate disc space narrowing vacuum disc. Mild disc bulging with calcification. Moderate facet arthropathy. Moderate left foraminal stenosis. L2-L3: Moderate to severe disc space narrowing , vacuum disc and moderate disc bulging focal midline calcified disc protrusion. Moderate canal stenosis. L5-S1: Severe disc space narrowing. Severe facet arthropathy. No significant canal or foraminal stenosis CT/CT lumbar spine wo con IMPRESSION: 1. Multilevel spondylosis with moderate to severe canal and foraminal stenosis most significant at L4-5 and L3-4. 2. Small central calcified disc protrusion L2-3 with moderate canal stenosis. 3 grade 1 spinal listhesis L4 secondary to severe facet arthropathy. 3. No fracture or suspicious focal bone lesion. Electronically authenticated by: IRINA STEEL Date: 08/01/2024 16:20
--- NOTE | 2024-08-01 15:22 | ECG_ITS ---
The [facility] Test Date: 2024-08-01 Pat Name: MARI JAMISON Department: Room: - Gender: Female Program Lead: : 1950 Requested By: Order Number: [id number] Reading MD: URMILA GARIBAY Measurements Intervals [place] Rate: 79 P: 90 MN: 122 QRS: 9 QRSD: 94 T: 34 QT: 384 QTc: 419 Interpretive Statements 1100 Sinus rhythm Baseline artifact 9110 normal ECG Compared to ECG 04/09/2024 17:26:38 No significant changes Electronically Signed On 08-02-2024 6:45:42 EDT by URMILA GARIBAY
--- NOTE | 2024-08-01 15:25 | XR_ITS ---
The [address] [address] Patient Name: MARI JAMISON MRN: [id number] date: 1950 Sex: F Assigned Patient Location: ER Current Patient Location: ER Accession/Order Number: [id number] Exam Date: 08/01/2024 16:10 Report Date: 08/01/2024 17:54 At the request of: REHAN CADENA Procedure: XR hip RT 2V w/ pelvis HISTORY: pain right hip COMPARISON: There are no previous studies available for comparison. TECHNIQUE: 3 views of the right hip. FINDINGS: BONE DENSITY: Normal. JOINTS: No acute abnormality. There is moderate to severe osteoarthritis of the right hip joint. FRACTURE: No acute fracture. DISLOCATION: None. SOFT TISSUES: No radiopaque foreign body. XR/XR hip RT 2V w/ pelvis IMPRESSION: 1. No acute osseous or joint abnormality. 2. Moderate to severe osteoarthritis of the right hip joint Electronically authenticated by: SUSAN PENDLETON Date: 08/01/2024 17:54
--- NOTE | 2024-08-01 15:25 | XR_ITS ---
The [address] [address] Patient Name: MARI JAMISON MRN: [id number] date: 1950 Sex: F Assigned Patient Location: ER Current Patient Location: ER Accession/Order Number: [id number] Exam Date: 08/01/2024 16:10 Report Date: 08/01/2024 17:55 At the request of: REHAN CADENA Procedure: XR chest 1V PORTABLE CHEST X-RAY. INDICATION: Weakness. COMPARISON: None. TECHNIQUE: Single AP portable chest radiograph. FINDINGS: TUBES AND LINES: None. LUNGS: Lungs are clear. PLEURA: No effusions or pneumothorax. HEART AND MEDIASTINUM: Within normal limits for portable technique. OSSEOUS STRUCTURES: No acute abnormality. XR/XR chest 1V IMPRESSION: No acute findings. Electronically authenticated by: SUSAN PENDLETON Date: 08/01/2024 17:55
--- NOTE | 2024-08-01 15:26 | ED_ITS ---
HPI HPI - General Adult General Chief complaint: Extremity Problem, Nontraumatic Stated complaint: LOWER EXTREMITY PAIN Time Seen by Provider: 08/01/24 14:31 Source: patient and family Mode of arrival: Wheelchair Limitations: no limitations History of Present Illness HPI narrative: 74-year-old female presents to the ER with concerns of acute on chronic low back pain with pain into the right hip, bilateral knees. Patient states when she stands she gets a burning sensation in the bilateral anterior thighs. She reports recently having a MRI of her back at [facility]. She has an appointment on August 09 with [facility] to discuss treatment options. They told me my back was bad. Patient reports being sedentary for the past 3 to 4 days secondary to the pain. She can feel the urge to urinate but cannot get up out of her bed or get to the bathroom fast enough and has been having urgency and frequency. She denies any bowel incontinence or saddle paresthesias. Patient notes pain into her legs is present all the time along with numbness and tingling. She denies any fever or focal joint swelling. She has a history of left total hip and bilateral knee replacement but notes that her right hip has a lot of arthritis and a crack. .. Pt not a great historian regarding symptoms, but states everything is getting worse.. ( MRI records Requested) Due to acuity in the ER, pt had some delay after triage to be evaluated and treated. Radiation: Reports back and extremity (lower legs. ) Quality: Reports burning, aching and sharp Pain Consistency: Reports constant (worse with standing. ) Relieving factors: Reports none Exacerbating factors: Reports none Associated symptoms: Reports weakness; Denies denies other symptoms Treatments prior to arrival: Reports none Related Data Home Medications ?Medication ?Instructions ?Recorded ?Confirmed carvedilol 25 mg tablet 25 mg PO BID 10/31/23 08/01/24 lisinopril 40 mg tablet 40 mg PO DAILY 10/31/23 08/01/24 metformin 500 mg tablet 500 mg PO BID 10/31/23 08/01/24 Allergies Allergy/AdvReac Type Severity Reaction Status Date / Time honey Allergy Severe Swelling Verified 05/09/24 17:15 of Lip/Tongue/Throat Penicillins Allergy Severe Swelling Verified 05/09/24 17:15 of Lip/Tongue/Throat Opioid HPI Opioid Management Most Recent Opioid Data: Last Pain Scale 10 08/01/24 16:10 08/01/24 Last MAR Pain Assessment 08/01/24 16:11 Review of Systems ROS Constitutional Denies: fever or chills Ears, nose, mouth, and throat Denies: throat pain or neck pain Cardiovascular Denies: chest pain or palpitations Respiratory Denies: shortness of breath or cough Gastrointestinal Denies: abdominal pain, nausea, vomiting, diarrhea or change in bowel habits Genitourinary Reports: urinary frequency, urinary urgency and urinary incontinence (unable to hold urine to get to bathroom. ) Musculoskeletal Reports: back pain, extremity pain, joint pain and limited range of motion (right hip. ); Denies: neck pain or extremity swelling Integumentary/Breast Denies: rash, itching, redness or non-healing lesion Neurological Reports: numbness in extremities and weakness in extremities; Denies: headache, lack of coordination or dizziness Psychiatric Denies: anxiety Endocrine Denies: excessive urination Hematologic/Lymphatic Denies: easy bruising PFSH PFSH Medical History (Updated 08/01/24 @ 17:25 by JUSTIN Hoyos) Osteoarthritis ?M19.90 - Unspecified osteoarthritis, unspecified site (ICD-10) TMJ (dislocation of temporomandibular joint) ?S03.00XA - Dislocation of jaw, unspecified side, initial encounter (ICD-10) Diabetes ?E11.9 - Type 2 diabetes mellitus without complications (ICD-10) Surgical History (Updated 07/26/24 @ 14:38 by Pearl Giang RN) History of hip replacement, total ?Z96.649 - Presence of unspecified artificial hip joint (ICD-10) History of knee replacement ?Z96.659 - Presence of unspecified artificial knee joint (ICD-10) Social History Smoking status: Never smoker Exam Narrative Exam Narrative: Vital Signs reviewed and nurse's notes reviewed. The patient is not hypoxic. General: Alert, Anxious, patient resting comfortably with knees bent. Skin: warm, intact, no pallor noted, no rash Head: Normocephalic, atraumatic Eye: Normal conjunctiva, EOMI Respiratory: No acute distress Abdomen: Normal bowel sounds, soft, nontender, no masses detected. No rebound, guarding, or rigidity noted. No midline pulsatile mass. Back: inspection of the back shows no obvious deformity, no swelling, no ecchymosis, contusion, abrasion, swelling, erythema, fluctuance or induration. No step offs or crepitus noted. Mild CVA tenderness noted bilaterally. Tenderness noted to paravertebral lumbar tenderness . Straight leg raise on left is positive. Straight leg raise on right is positive. Musculoskeletal: No deformity noted to bilateral lower extremities. left hip scar and bilateral knee scar.. Notable pain with motion of right hip and motion is limited consistent with likely arthritis, no shortening. no cyanosis or mottling noted. normal pulses at DP and PT 2+ bilaterally and symmetrically. Normal 5/5 strength at ankles with dorsiflexion and plantar flexion. Quad and Ham strength appear 4/5 limited by pain. Patient is unable to ambulate. Numbness noted in bilateral anterior lateral thighs. gross sensation to touch, . Bilateral knee joints Neurological: alert and oriented x4, normal sensory and motor observed. DTR 1/4 at patellar and 2/4 achilles bilaterally. neg clonus.. : RN at bedside. digitial rectal exam noted for no gross blood, but good rectal tone. Pt had urge to urinate, Straight josue with enough urine only to fill specimen vial and post void residual with bladder scan was neg. sensation intact to perinum/ vulva with straight josue Psychiatric: Cooperative, but anxious regarding pain/ recent mri results and inability to self ambulate. Constitutional Vital Signs, click to edit/add: Last Vital Signs Temp 98.7 F 08/01/24 12:52 Pulse 90 08/01/24 12:52 Resp 18 08/01/24 12:52 BP 155/92 H 08/01/24 12:52 Pulse Ox 97 08/01/24 12:52 O2 Del Method Room Air 08/01/24 12:52 Course Vital Signs Vital signs: Vital Signs Temperature 98.7 F 08/01/24 12:52 Pulse Rate 90 08/01/24 12:52 Respiratory Rate 18 08/01/24 12:52 Blood Pressure 155/92 H 08/01/24 12:52 Pulse Oximetry 97 08/01/24 12:52 Oxygen Delivery Method Room Air 08/01/24 12:52 Temperature 98.7 F 08/01/24 12:52 Pulse Rate 90 08/01/24 12:52 Respiratory Rate 18 08/01/24 12:52 Blood Pressure 155/92 H 08/01/24 12:52 Pulse Oximetry 97 08/01/24 12:52 Oxygen Delivery Method Room Air 08/01/24 12:52 Medical Decision Making MDM Narrative Medical decision making narrative: Patient presents with history of spinal stenosis, notes for the past 3 to 4 days she has been bedbound, unable to ambulate, has a cane at home but not a walker. She does not have any obvious bedsores. Patient has notable pain in the right hip with limited range of motion and continuous numbness and tingling in the bilateral legs. The perineal area appears to be without paresthesia or weakness and function. She has notable urgency for urination and reports urinating at buddhism. Patient denies any fevers or chills. Post void Residual 0 despite patient's urge to urinate. Chief concern is patient's worsening pain and inability to ambulate safely. She requires a two-person assist to transfer and wheelchair for any distance. Partly from patient's right hip arthritis and partly from worsening spinal stenosis with neurogenic claudication given her history. Reviewed MRI (R) HIP, LUMBAR SPINE MRI and DEXA SCAN: No evidence of HIP fracture.. + arthritis. pt states Dr. Stewart'ena will not replace her right hip until her back symptoms are improved. Patient medicated with 15 mg IV Toradol, IV morphine and Solu-Medrol. Patient reevaluated, she reports pain improved. We discussed her laboratory studies, she has mild elevation of her myoglobin, elevated CK. We discussed possible early rhabdomyolysis given her sedentary situation at home with severe spinal stenosis. Patient was given liter of IV fluids. Expressed concern regarding patient's progressive weakness in her lower legs, she feels better after receiving IV steroids and was able to stand with the use of her cane but had a very antalgic borderline ataxic gait. Patient hesitant to stay for observation. But I expressed concern with her urinary symptoms, no signs of infection. She has notable severe spinal stenosis as presented on prior MRI, CT today discussed. Should she continue to improve with parenteral IV steroid and pain medication with physical therapy consult she may be safe to go home, but at this time she presents as a significant fall risk, and spouse at the bedside states she has fallen in the past. Patient agreeable to stay for observation stay and reevaluation of her symptoms. She is currently not meeting criteria for emergent MRI to rule out cauda equina but should her symptoms worsen this should be given consideration given her clinical history. Patient's case was discussed with Dr. Sherwood who is agreeable to admit the patient for medical management and symptomatic treatment. Patient declined to go home AGAINST MEDICAL ADVICE after we discussed the potential complications and disabilities of her worsening back symptoms. Pt notes difficulty with controlling her bladder which is already a concern as this symptoms is new over last 3-4 days. Medical Records Medical records reviewed: Yes I reviewed the patient's medical records Medical records narrative: CT abdomen and pelvis without contrast [facility] done on 07/27/2024. No abdominal wall hernia ventral abdominal wall postsurgical changes. Small hiatal hernia. Left adrenal adenoma measuring 1.6 cm. Consider biochemical assay to determine functional status and exclude pheochromocytoma. 1 anterior listhesis L4 and L5. DEXA scan 07/09 considered normal by [employer] MRI lumbar spine 07/09/24. Multilevel degenerative changes with relatively stable L4-L5 and L5-S1 anterior listhesis. Stable L3-L4 and L4-L5 severe spinal stenosis. MRI right hip 05/26/2024. Severe degenerative changes right femoral acetabular joint with juxta articular signal changes which appear to be degenerative in etiology, probable tear of the anterior superior portion of the right hip labrum, possible grade 1 injury of the right obturator externus muscle. Lab Data Lab results reviewed: Yes I reviewed the patient's lab results Labs: Lab Results 08/01/24 08/01/24 08/01/24 Range/Units 15:35 15:36 16:00 WBC 6.9 (4.0-11.0) 10^3/uL RBC 4.38 (4.20-5.40) 10^6/uL Hgb 12.6 (12.0-16.0) g/dL Hct 38.7 (36.0-48.0) % MCV 88.4 (81.0-99.0) fL MCH 28.8 (26.7-34.0) pg MCHC 32.6 (29.9-35.2) g/dL RDW 13.2 (11.0-15.0) % Plt Count 252 (150-450) 10^3/uL MPV 9.9 (9.5-13.5) fL Neut % (Auto) 50.9 (43.0-75.0) % Lymph % (Auto) 36.2 (20.5-60.0) % [place] % (Auto) 10.0 (1.7-12.0) % Eos % (Auto) 2.0 (0.9-7.0) % Baso % (Auto) 0.6 (0.2-2.0) % Neut # (Auto) 3.5 (1.4-6.5) 10^3/uL Lymph # (Auto) 2.5 (1.2-3.8) 10^3/uL [place] # (Auto) 0.7 (0.3-0.8) 10^3/uL Eos # (Auto) 0.1 (0.0-0.7) 10^3/uL Baso # (Auto) 0.0 (0.0-0.1) 10^3/uL Abs Immat Gran (auto) 0.02 (0.00-0.03) 10^3/uL Imm/Tot Granulo (auto) 0.3 (0.0-0.5) % ESR 42 H (<=30) mm/hr Sodium 140 (136-145) mmol/L Potassium 4.4 (3.5-5.1) mmol/L Chloride 103 (98-107) mmol/L Carbon Dioxide 26.9 (21.0-32.0) mmol/L Anion Gap 14.5 BUN 21.0 H (7.0-18.0) mg/dL Creatinine 0.78 (0.55-1.02) mg/dL Est GFR ( Amer) >60 (>=60 mL/min/1.73m^2) Est GFR (Non-Af Amer) >60 (>=60 mL/min/1.73m^2) BUN/Creatinine Ratio 26.9 Glucose 141 H (74-106) mg/dL Lactate 1.3 (0.4-2.0) mmol/L Calcium 9.8 (8.5-10.1) mg/dL Total Bilirubin 0.5 (0.2-1.0) mg/dL AST 25 (15-37) U/L ALT 34 (14-59) U/L Alkaline Phosphatase 83 (46-116) U/L Total Creatine Kinase 346 H* (26-192) U/L Myoglobin 113 H (9-82) ng/mL Troponin I High Sens 7.9 (4.0-51.3) pg/mL C-Reactive Protein 0.64 H (<=0.50) mg/dL Total Protein 7.7 (6.4-8.2) g/dL Albumin 3.6 (3.4-5.0) g/dL Globulin 4.1 g/dL Albumin/Globulin Ratio 0.9 Urine Color Lt. yellow (YELLOW) Urine Clarity Clear (CLEAR) Urine pH 5.5 (5.0-9.0) Ur Specific [place] 1.025 (1.005-1.025) Urine Protein Negative (NEG/TRACE) mg/dL Urine Glucose (UA) Negative (NEGATIVE) mg/dL Urine Ketones Negative (NEGATIVE) mg/dL Urine Occult Blood Large A (NEGATIVE) Urine Nitrite Negative (NEGATIVE) Urine Bilirubin Negative (NEGATIVE) Urine Urobilinogen 0.2 (0.2-1.0) EU/dL Ur Leukocyte Esterase Negative (NEGATIVE) Urine RBC 20-50 A (0-2) #/HPF Urine WBC 0-2 A (NONE SEEN) #/HPF Ur Squamous Epith Cells Few A (NONE/RARE) #/LPF Ur Transition Epith Cell Rare A (NONE SEEN) #/LPF Urine Crystals None seen (None Seen) #/HPF Urine Bacteria Trace A (NONE SEEN) #/HPF Urine Casts None seen (NONE SEEN) #/LPF Urine Mucus Trace A (NONE SEEN) Ur Culture Indicated? No Stool Occult Blood Negative ECG Data Attestation: I personally reviewed and interpreted this ECG as follows: Interpretation: EKG interpretation: Emergency Department physician interpretation, normal sinus rhythm 79 bpm, no ectopy, no ST segment elevation, normal axis. Discharge Plan Discharge Chief Complaint: Extremity Problem, Nontraumatic Clinical Impression: Spinal stenosis of lumbar region at multiple levels, Antalgic gait, Arthritis of right hip, At high risk for falls, Bilateral leg paresthesia Patient Disposition: Admitted as Observation Time of Disposition Decision: 17:20 Condition: Good Prescriptions / Home Meds: No Action metformin 500 mg tablet 500 mg PO BID lisinopril 40 mg tablet 40 mg PO DAILY carvedilol 25 mg tablet 25 mg PO BID Print Language: Kittitian Additional Instructions: Recommend Walker if up with 1:1 assist. Referrals: Physician,Non-Staff, MD [Primary Care Provider] - 1 week
[2024-08-01 15:57] LABS: Bilirubin Urine NEGATIVE (NEGATIVE); Blood Urine LARGE (NEGATIVE); Clarity Urine CLEAR (CLEAR); Color Urine LT. YELLOW (YELLOW); Glucose Urine UA NEGATIVE (NEGATIVE); Ketones Urine NEGATIVE (NEGATIVE); Leukocyte Esterase Urine NEGATIVE (NEGATIVE); Nitrite Urine NEGATIVE (NEGATIVE); Protein Urine NEGATIVE (NEG/TRACE); Specific Gravity Urine 1.025 (1.005-1.025); Urobilinogen Urine 0.2 EU/dL (0.2-1.0); pH Urine 5.5 (5.0-9.0)
[2024-08-01 16:03] LABS: Internal Control Within Normal Limits; Occult Blood Negative
[2024-08-01 16:06] LABS: Basophils Percent Auto 0.6 % (0.2-2.0); Eosinophils Absolute Auto 0.1 10^3/uL (0.0-0.7); Hematocrit 38.7 % (36.0-48.0); Hemoglobin 12.6 g/dL (12.0-16.0); Immature Granulocytes Abs Auto 0.02 10^3/uL (0.00-0.03); Immature Granulocytes Pct Auto 0.3 % (0.0-0.5); Lymphocytes Absolute Auto 2.5 10^3/uL (1.2-3.8); Lymphocytes Percent Auto 36.2 % (20.5-60.0); Mean Corpuscular HGB Conc 32.6 g/dL (29.9-35.2); Mean Corpuscular Hemoglobin 28.8 pg (26.7-34.0); Mean Corpuscular Volume 88.4 fL (81.0-99.0); Mean Platelet Volume 9.9 fL (9.5-13.5); Monocytes Absolute Auto 0.7 10^3/uL (0.3-0.8); Neutrophils Absolute Auto 3.5 10^3/uL (1.4-6.5); Neutrophils Percent Auto 50.9 % (43.0-75.0); Platelet Count 252 10^3/uL (150-450); Red Blood Count 4.38 10^6/uL (4.20-5.40); Red Cell Distribution Width 13.2 % (11.0-15.0); White Blood Count 6.9 10^3/uL (4.0-11.0)
[2024-08-01 16:07] LABS: Urine Microscopic Indicated YES
[2024-08-01 16:09] LABS: Bacteria Urine TRACE #/HPF (NONE SEEN); Cast Seen? NONE SEEN #/LPF (NONE SEEN); Crystals Seen? None Seen #/HPF (None Seen); Mucus Urine TRACE (NONE SEEN); RBC Urine 20-50 #/HPF (0-2); Squamous Epithelial Cell Urine FEW #/LPF (NONE/RARE); Transitional Epi Cells Urine RARE #/LPF (NONE SEEN); WBC Urine 0-2 #/HPF (NONE SEEN)
[2024-08-01 16:10] LABS: Urine Culture Indicated NO
[2024-08-01] MEDS: MORPHINE SULFATE 2 MG/ML SYRINGE IV (16:10)
[2024-08-01] MEDS: KETOROLAC TROMETHAMINE 30 MG/ML VIAL 15 MG IVP (16:11)
[2024-08-01] MEDS: METHYLPREDNISOLONE SOD SUCC PF 125 MG/2 ML VIAL IVP (16:12)
[2024-08-01 16:25] LABS: Erythrocyte Sedimentation Rate 42 mm/hr (<=30)
[2024-08-01 16:35] LABS: Alanine Aminotransferase 34 U/L (14-59); Albumin Globulin Ratio 0.9; Albumin Level 3.6 g/dL (3.4-5.0); Alkaline Phosphatase 83 U/L (46-116); Anion Gap 14.5; Aspartate Amino Transferase 25 U/L (15-37); BUN Creatinine Ratio 26.9; Bilirubin Total 0.5 mg/dL (0.2-1.0); Calcium 9.8 mg/dL (8.5-10.1); Carbon Dioxide 26.9 mmol/L (21.0-32.0); Chloride 103 mmol/L (98-107); Estimated GFR (African America >60 (>=60 mL/min/1.73m^2); Estimated GFR (Non-African Ame >60 (>=60 mL/min/1.73m^2); Globulin 4.1 g/dL; Glucose 141 mg/dL (74-106); Potassium 4.4 mmol/L (3.5-5.1); Sodium 140 mmol/L (136-145); Total Protein 7.7 g/dL (6.4-8.2)
[2024-08-01] MEDS: 0.9 % SODIUM CHLORIDE 1,000 ML 100 ML IV (16:35)
[2024-08-01 16:37] LABS: Lactate/Lactic Acid 1.3 mmol/L (0.4-2.0)
[2024-08-01 16:42] LABS: C Reactive Protein 0.64 mg/dL (<=0.50); Myoglobin 113 ng/mL (9-82); Troponin I High Sensitivity 7.9 pg/mL (4.0-51.3)
[2024-08-01 16:55] LABS: Creatine Kinase 346 U/L (26-192)
--- NOTE | 2024-08-01 17:45 | CT_ITS ---
[facility] [id number] Patient Name: MARI JAMISON MRN: [id number] date: 1950 Sex: F Assigned Patient Location: ER Current Patient Location: [place] Accession/Order Number: [id number] Exam Date: 08/01/2024 18:10 Report Date: 08/01/2024 18:33 At the request of: KODY VASQUEZ Procedure: CT stroke head/brain wo con EXAM: CT stroke head/brain wo con HISTORY: lower ext weakness, elevated CK COMPARISON: Head CT noncontrast 12/11/2014, 12/17/2011. TECHNIQUE: CT head noncontrast. Axial scans with reformatted coronal and sagittal images. FINDINGS: No evidence of hemorrhage, acute edema or other evidence of acute stroke. No mass or mass effect. Extensive confluent deep white matter low-attenuation bilateral consistent with chronic small vessel ischemic change increased from previous. No subdural or extra-axial collection. No fracture or suspicious bony abnormality. No fluid level mastoids, middle ear cavities or sinuses CT/CT stroke head/brain wo con IMPRESSION: No evidence of hemorrhage or acute stroke. Extensive confluent deep white matter low-attenuation bilateral most consistent with chronic small vessel ischemic change increased from previous. Electronically authenticated by: IRINA STEEL Date: 08/01/2024 18:33
--- OUTSIDE RECORDS SUMMARY | 2024-08-01 18:33 | XMS_ITS | CCD ---
Author Organization [facility] Care Team Providers Care Relocation Counselor Name Role Phone PHYSICIAN, DEFAULT Unavailable Unavailable PHYSICIAN, DEFAULT Unavailable Unavailable DELFINO DICKERSONEDA O Unavailable Unavailable Jeni Antonio Primary Care Provider NON, STAFF, Primary Care Provider UnavailKrishan Stacy Attending Provider [phone] Unavailable Primary Care Provider Unavailbryson e Rumschlag [...] Care Unavailable MARINO WILKERSON Attending Unavailable SERVICES, [facility] Primary Care Unava ilable SERVICES, [facility] Primary Care Unava ilable DHARA SNELL Attending Unavailable SERVICES, [facility] Unava ilable HILL, OLEG ARAGON Referring Unavailable SERVICES, [facility] Care Unava ilable HILL, OLEG ARAGON Referring Unavailable SERVICES, [facility] Unava ilable SERVICES, [facility] Care Unava ilable COLUMBA NOLAN Attending Unavailable SERVICES, [facility] Unava ilable JOSE MARIA MCFARLANE [...] Attending Unavailable MARINO WILKERSON Referring Unavailable SERVICES, [facility] Primary Care Unava ilable RUMSCHLAG, GLORIA K Referring Unavailable RUMSCHLAG, GLORIA K Primary Care Unavailable Services, [facility] Primary Care Provider Maria Guadalupe ARORA, Nolberto Eldridge Attending Unavailable Unavailable Unavailable Unavailable Allergies Allergy Classification Reported Allergen(s) Allergy Type Date of Onset Reaction(s) Facility Penicillins (antibiotic) (1 source) Penicillins Drug Allergy 3 Hives, Nausea And Vomiting [facility] (5 sources) Honey; Translations: [HONEY] Drug allergy (disorder) 0 [facility] (6 sources) Penicillins; Translations: [PENICILLINS] Drug allergy (disorder) 9 Hives, Nausea And Vomiting [facility] (8 sources) Honey Propensity to adverse reactions to drug 3 Swelling [place] (1 source) Penicillins Propensity to adverse reactions to drug 3 Hives, Nausea And Vomiting [place] (1 source) Penicillin Drug Allergy Unknown [employer] Other (5 sources) Penicillins Propensity to adverse reactions to drug 7 Hives, Nausea [facility] (7 sources) Perflutren; Translations: [PERFLUTREN LIPID MICROSPHERES] Drug Allergy 1 [facility] Work Phone: (1 source) Milk Products; Translations: [Milk Products] Propensity to adverse reactions to food (disorder) [facility] Repository Medications Current Medications Medication Drug Class(es) Dates Sig (Normalized) Sig (Original) 8 hr acetaminophen 650 mg extended release oral tablet (8 sources) acetaminophen (T YLENOL ARTHRITIS) 650 mg [...] 0 Active atorvastatin 10 mg oral tablet (5 sources) HMG-CoA Reductase Inhibitor Start: 04-18-2021 take 1 tablet by mouth in the morning atorvastatin (LIPITOR) 10 mg tablet Take 1 tablet (10 mg total) by mouth in the morning. 04/18/2021 Active benzonatate 100 mg oral capsule (5 sources) Non-narcotic Antitussive Start: 09-20-2023 take 1 capsule by mouth every eight hours benzonatate (TESSALON PERLES) 100 mg capsule Take 1 capsule (100 mg total) by mouth every 8 (eight) hours. 21 capsule 09/20/2023 Active Calcium (5 sources) Phosphate Binder, Calcium CALCIUM ORAL Take [...] 0 Active carvedilol 25 mg oral tablet (6 sources) alpha-Adrenerg ic Mook, beta-Adrenergi c Mook [...] 04/14/2022 Active clotrimazole 10 mg/ml topical cream (3 sources) Azole Antifungal Start: 06-16-2024 clotrimazole (LOTRIMIN) 1 % cream Apply to affected area 2 times daily 15 g 06/16/2024 Active Start: 05-27-2022 End: 12-02-2023 clotrimazole (LOTRIMIN) 1 % cream Apply to affected area 2 times daily 15 g 0 05/27/2022 12/02/2023 Discontinued cyclobenzaprine hydrochloride 10 mg oral tablet (2 sources) Muscle Relaxant Start: 07-11-2024 take 1 tablet [...] Active diclofenac sodium 0.01 mg/mg topical gel (2 sources) Nonsteroidal Anti-inflammatory Drug Start: 07-18-2024 diclofenac sodium (VOLTAREN) 1 % gel Apply 2 g topically in the morning and 2 g at noon and 2 g in the evening and 2 g before bedtime. 100 g 07/18/2024 Active 0.5 ml dulaglutide 1.5 mg/ml auto-injector (7 sources) GLP-1 Receptor Agonist dulaglutide (TRULICITY) 0.75 [...] propionate 0.05 mg/actuat metered dose nasal spray (5 sources) Corticosteroid Start: 2022 take 1 spray(s) nasal route in the morning fluticasone propionate (FLONASE) 50 mcg/actuation nasal spray Administer 1 spray into each nostril in the morning. 16 g 09/24/2023 Active glyBURIDE 5 mg oral tablet (7 sources) Sulfonylurea Start: 2020 glyBURIDE (DIABETA) 5 mg tablet Take 1 tablet (5 mg total) by mouth as needed. 12/14/2020 Active 12 hr guaiFENesin 600 mg / pseudoephedrine hydrochloride 60 mg extended release oral tablet (5 sources) alpha-Adrenergic Agonist Start: 2022 take 1 [...] 0 Active lidocaine 0.05 mg/mg medicated patch (3 sources) Antiarrhythmic, Amide Local Anesthetic Start: 2023 [...] 12/02/2023 Discontinued lisinopril 40 mg oral tablet (9 sources) Angiotensin Converting Enzyme Inhibitor Start: 08-15-2015 take 1 tablet by mouth in the morning lisinopril (PRINIVIL,ZESTRIL) 40 mg tablet Take 1 tablet (40 mg total) by mouth in the morning. 08/15/2015 Active take 2 tablets by mouth once wyatt ly lisinopril (PRINIVIL;ZESTRIL) 20 MG tablet Take 40 mg by mouth daily 0 Active metFORMIN hydrochloride 500 mg oral tablet (9 sources) Biguanide metFORMIN (GLUCO PHAGE) 500 mg tablet Indications: type 2 diabetes mellitus Take 1 tablet (500 mg total) by mouth in the morning and 1 tablet (500 mg total) before bedtime. Indications: type 2 diabetes mellitus. Active miscellaneous medical supply misc (5 sources) miscellaneous me dical supply misc 1 tablet Active miscellaneous me dical supply misc 1 tablet 0 Active mupirocin 20 mg/ml topical cream (1 source) RNA Synthetase Inhibitor Antibacterial Start: 08-09-2021 mupirocin (BACTROBAN ) 2 % cream Apply topically 3 times daily 0 08/09/2021 Active nystatin 851973 unt/ml topical cream (2 sources) Polyene Antifungal Start: 01-18-2024 nystatin (M YCOSTATIN) cream Apply 1 Application topically in the morning and 1 Application before bedtime. 30 g 01/18/2024 Active sodium chloride 0.111 meq/ml nasal spray (7 sources) Start: 02-07-2023 sodium chlorid e (OCEAN) [...] Active triamcinolone acetonide 1 mg/ml topical cream (2 sources) Corticosteroid Start: 01-18-2024 triamcinolone (KENALOG) 0.1 % [...] Onset: 4 Episodic Diabetes mellitus without complication (9 sources) Diabetes mellitus; Translations: [Type 2 diabetes mellitus] Onset: 8 04-04-2020 Chronic Disorders of lipid metabolism (9 sources) Hyperlipidemia; Translations: [Hyperlipidemia, unspecified] Onset: 8 04-04-2020 Chronic E Codes: Fall (1 source) Fall Onset: 3 Esophageal disorders (3 sources) Gastroesophageal reflux disease; Translations: [Gastro-esophageal reflux disease without esophagitis] Onset: 1 Chronic Essential hypertension (9 sources) Hypertensive disorder; Translations: [Essential (primary) hypertension] Onset: 8 12-02-2023 Chronic Genitourinary symptoms and ill-defined conditions (6 sources) Mixed incontinence; Translations: [Mixed urinary incontinence] Onset: 8 08-05-2023 Chronic Genitourinary symptoms and ill-defined conditions (2 sources) Frequency of micturition; Translations: [Urgency of urination] Onset: 3 Episodic Osteoarthritis (8 sources) Osteoarthritis of right knee joint; Translations: [...] Resolved: 2 Episodic Other aftercare (1 source) FPC (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 hypoglycemic drugs; Translations: [DATA PROCESSING SPECIALIST USE ORAL HYPOGLYCEMIC DX] Onset: 3 Episodic Other aftercare (1 source) Other correction (current) drug therapy; Translations: [OTH DATA PROCESSING SPECIALIST CURRENT DRUG THERAPY] Onset: 3 Episodic Other and unspecified benign neoplasm (1 source) History of polyp of colon; Translations: [Personal history of colonic polyps] Episodic Other connective tissue disease (1 source) Presence of left artificial knee joint; Translations: [PRESENCE LEFT ARTIFICIAL KNEE JOINT] Onset: 3 Chronic Other connective tissue disease (5 sources) History of prosthetic unicompartmental arthroplasty of [...] Chronic Other nutritional; endocrine; and metabolic disorders (7 sources) Severe obesity; Translations: [Morbid (severe) obesity due to excess calories] Onset: 3 04-04-2020 Chronic Other nutritional; endocrine; and metabolic disorders (5 sources) Body mass index 40+ - severely obese; Translations: [Morbid (severe) obesity due to excess calories] Onset: 3 06-09-2018 Chronic Other nutritional; endocrine; and metabolic disorders (16 sources) Body mass index 30+ - obesity; [...] Spondylosis; intervertebral disc disorders; other back problems (11 sources) Lumbosacral spondylosis without myelopathy; Translations: [Spondylosis [...] exam] Onset: 3 07-19-2013 Unclassified (1 source) [facility] INJECT NONINSULN ANTIDIAB; Translations: [DATA PROCESSING SPECIALIST INJECT NONINSULN ANTIDIAB] Onset: 3 Unclassified (1 [...] Date Documented Da te Episodic/Chronic Abdominal hernia (10 sources) Diaphragmatic hernia without obstruction or gangrene; Translations: [Recurrent hernia of anterior abdominal wall] Onset: 8 06-15-2018 Episodic Cardiac dysrhythmias (7 sources) Tachyarrhythmia ; Translations: [Tachycardia, unspecified] Onset: 8 04-04-2020 Episodic Inflammatory diseases of female pelvic organs (2 sources) Acute vaginitis; Translations: [Acute vaginitis] Onset: 0 04-04-2020 Episodic Mood disorders (5 sources) Mood disorders Onset: 1 06-22-2021 Nonspecific chest pain (12 sources) Chest pain; Translations: [Other chest pain] Onset: 0 12-02-2023 Episodic Other diseases of kidney and ureters (5 sources) Cyst of kidney; Translations: [Cyst of kidney, acquired] Onset: 0 05-22-2021 Episodic Other gastrointestinal disorders (3 sources) Alteration in bowel elimination; Translations: [Change in bowel habit] Onset: 4 03-15-2015 Episodic Other inflammatory condition of skin (1 source) Erythema intertrigo; Translations: [Erythema intertrigo] Onset: 4 Episodic Other lower respiratory disease (5 sources) Dyspnea; Translations: [Shortness of breath] Onset: [...] encounter] Onset: 3 Episodic Urinary tract infections (5 sources) Recurrent urinary tract infection; Translations: [Urinary tract infection, site not specified] Onset: 3 08-05-2023 Episodic Results Test Name Value Interpretation Reference Range Facility CBC AND AUTO DIFFon 07-11-20 24 ABSOLUTE BASOPHIL 0.1 X10E9/L Normal 0.0-0.2 [facility] Comment on above: Performed By: #### B MP, CBCA, 18713-5 #### [facility] ([id number]) [address] [place] [address] 74732 ABSOLUTE NEUTROPHIL 3.2 X10E9/L Normal 1.5-6.6 [facility] Comment on above: Performed By: #### B MP, CBCA, 16419-8 #### [facility] ([id number]) [address] [place] [address] 58560 Basophils/100 WBC (Bld) 1.2 % Normal [facility] Comment on above: Performed By: #### B MP, CBCA, 40232-0 #### [facility] ([id number]) [address] [place] [address] 94573 Eosinophils (Bld) [#/Vol] 0.2 10*3/uL Normal 0.0-0.4 [facility] Comment on above: Performed By: #### B MP, CBCA, 30079-9 #### [facility] ([id number]) [address] [place] [address] 97911 Eosinophils/100 WBC (Bld) 2.6 % Normal [facility] Comment on above: Performed By: #### B MP, CBCA, 14345-8 #### [facility] ([id number]) [address] [place] [address] 48514 Erythrocyte distribution wid th (RBC) [Ratio] 13.5 % Normal 11.5-15.0 [facility] Comment on above: Performed By: #### B ALAN, CBCA, 05510-3 #### [facility] ([id number]) [address] [place] [address] 42996 Hematocrit (Bld) [Volume fraction] 40.1 % Normal 35-47 [facility] Comment on above: Performed By: #### B ALAN, CBCA, 92252-7 #### [facility] ([id number]) [address] [place] [address] 27449 Hemoglobin (Bld) [Mass/Vol] 13.1 g/dL Normal 11.7-15. 5 [facility] Comment on above: Performed By: #### B ALAN, CBCA, 27842-0 #### [facility] ([id number]) [address] [place] [address] 77792 Lymphocytes (Bld) [#/Vol] 2.2 10*3/uL Normal 1.0-3.5 [facility] Comment on above: Performed By: #### B ALAN, CBCA, 36223-2 #### [facility] ([id number]) [address] [place] [address] 86410 Lymphocytes/100 WBC (Bld) 35.5 % Normal [facility] Comment on above: Performed By: #### B ALAN, CBCA, 55534-8 #### [facility] ([id number]) [address] [place] [address] 12800 MCH (RBC) [Entitic mass] 28.6 pg Normal 27-34 [facility] Comment on above: Performed By: #### B ALAN, CBCA, 09206-4 #### [facility] ([id number]) [address] [place] [address] 00525 MCHC (RBC) [Mass/Vol] 32.6 g/dL Normal 32-36 [facility] Comment on above: Performed By: #### B ALAN, CBCA, 01185-8 #### [facility] ([id number]) [address] [place] [address] 74481 MCV (RBC) [Entitic vol] 88 fL Normal 80-100 [facility] Comment on above: Performed By: #### B MP, CBCA, 67840-1 #### [facility] ([id number]) [address] [place] [address] 26980 Monocytes (Bld) [#/Vol] 0.5 10*3/uL Normal 0-0.9 [facility] Comment on above: Performed By: #### B ALAN, CBCA, 90862-8 #### [facility] ([id number]) [address] [place] [address] 56456 Monocytes/100 WBC (Bld) 8.9 % Normal [facility] Comment on above: Performed By: #### B ALAN, CBCA, 99166-4 #### [facility] ([id number]) [address] [place] [address] 12009 Neutrophils/100 WBC (Bld) 51.8 % Normal [facility] Comment on above: Performed By: #### B ALAN, CBCA, 16874-1 #### [facility] ([id number]) [address] [place] [address] 39932 Platelet mean volume (Bld) [Entitic vol] 8.5 fL Normal 7-12 [facility] Comment on above: Performed By: #### B MP, CBCA, 97019-9 #### [facility] ([id number]) [address] [place] [address] 76697 Platelets (Bld) [#/Vol] 245 10*3/uL Normal 150-450 [facility] Comment on above: Performed By: #### B MP, CBCA, 17307-9 #### [facility] ([id number]) [address] [place] [address] 99275 RBC COUNT 4.58 X10E12/L Normal 3.80-5.20 [facility] Comment on above: Performed By: #### B ALAN, CBCA, 27674-3 #### [facility] ([id number]) [address] [place] [address] 62911 WBC (Bld) [#/Vol] 6.1 10*3/uL Normal 4.0-11.0 [facility] Comment on above: Performed By: #### B ALAN, CBCA, 69326-4 #### [facility] ([id number]) [address] [place] [address] 62919 COMPREHENSIVE METABOLIC PANE Rommel 07-11-2024 Albumin [Mass/Vol] 4.2 g/dL Normal 3.2-5.3 [facility] Comment on above: Performed By: #### B ALAN, CBCA, 42811-9 #### [facility] ([id number]) [address] [place] [address] 54068 ALP [Catalytic activity/Vol] 72 U/L Normal 39-130 [facility] Comment on above: Performed By: #### B ALAN, CBCA, 10692-3 #### [facility] ([id number]) [address] [place] [address] 76521 ALT [Catalytic activity/Vol] 24 U/L Normal 0-31 [facility] Comment on above: Performed By: #### B ALAN, CBCA, 93349-6 #### [facility] ([id number]) [address] [place] [address] 22295 Anion gap [Moles/Vol] 9 mmol/L Normal 5-15 [facility] Comment on above: Performed By: #### B ALAN, CBCA, 43310-3 #### [facility] ([id number]) [address] [place] [address] 19370 AST [Catalytic activity/Vol] 24 U/L Normal 0-41 [facility] Comment on above: Performed By: #### B JERRI PHILLIPSA, 44013-2 #### [facility] ([id number]) [address] [place] [address] 33182 Bilirubin [Mass/Vol] 0.5 mg/dL Normal 0.3-1.2 [facility] Comment on above: Performed By: #### B ALAN CBCWing, 98739-3 #### [facility] ([id number]) [address] [place] [address] 25393 Calcium [Mass/Vol] 9.9 mg/dL Normal 8.5-10.5 [facility] Comment on above: Performed By: #### B ALAN CBCWing, 36511-8 #### [facility] ([id number]) [address] [place] [address] 05437 Chloride [Moles/Vol] 104 mmol/L Normal 98-109 [facility] Comment on above: Performed By: #### B ALAN CBCA, 20512-4 #### [facility] ([id number]) [address] [place] [address] 97834 CO2 [Moles/Vol] 23 mmol/L Normal 22-32 [facility] Comment on above: Performed By: #### B ALAN CBCA, 68435-0 #### [facility] ([id number]) [address] [place] [address] 44263 Creatinine [Mass/Vol] 0.74 mg/dL Normal 0.40-1.00 [facility] Comment on above: Result Comment: METH OD TRACEABLE TO IDMS STANDARD Performed By: #### B CHEYENNE PHILLIPS, 24077-6 #### [facility] ([id number]) [address] [place] [address] 34070 GFR/1.73 sq M.predicted marc g non-blacks MDRD (S/P/Bld) [Vol rate/Area] 85 mL/min/{1.73_m2} Normal >59 [facility] Comment on above: Result Comment: Reported eGFR is based on the CKD-EPI 2020 equation that does not use a race coefficient. Performed By: #### B CHEYENNE PHILLIPS, 58442-7 #### [facility] ([id number]) [address] [place] [address] 87112 Glucose [Mass/Vol] 269 mg/dL High 65-99 [facility] Comment on above: Performed By: #### [place], [address]-8 #### [facility] ([id number]) [address] [place] [address] 57774 Potassium [Moles/Vol] 4.4 mmol/L Normal 3.5-5.0 [facility] Comment on above: Performed By: #### [place], [address]-8 #### [facility] ([id number]) [address] [place] [address] 22879 Protein [Mass/Vol] 7.9 g/dL Normal 6.0-8.0 [facility] Comment on above: Performed By: #### [place], [address]-6 #### [facility] ([id number]) [address] [place] [address] 09186 Sodium [Moles/Vol] 136 mmol/L Normal 134-146 [facility] Comment on above: Performed By: #### [place], [address]-1 #### [facility] ([id number]) [address] [place] [address] 29352 Urea nitrogen [Mass/Vol] 26 mg/dL Normal 5-27 [facility] Comment on above: Performed By: #### [place], [address]-5 #### [facility] ([id number]) [address] [place] [address] 58455 Lactate (P sam) [Moles/Vol]o n 07-11-2024 LACTATE W/REFLEX 2.0 mmol/L Normal 0.4-2.0 [facility] Comment on above: Result Comment: Result did not trigger repeat Lactate, re-order if needed. Performed By: #### B ALAN CBCWing, 47276-7 #### [facility] ([id number]) [address] [place] [address] 87451 MAGNESIUMon 07-11-2024 Magnesium [Mass/Vol] 1.9 mg/dL Normal 1.8-2.6 [facility] Comment on above: Performed By: #### B ALAN CBCWing, 40815-6 #### [facility] ([id number]) [address] [place] [address] 71336 DEVAUGHN FECAL OCCULT BLDon 07-11 Hemoglobin.gastrointestinal Ql (Stl) Negative Normal NEG [facility] Comment on above: Performed By: #### B ALAN CBCWing, 27151-0 #### [facility] ([id number]) [address] [place] [address] 01075 DEXA SCAN CENTRAL SKELETALon 07-09-2024 DEXA SCAN CENTRAL SKELETAL DEXA SCAN [facility] TRA SKELETAL CLINICAL INFORMATION: Post-menopausal. , Post [...] Hager MD on 07/09/2024 2:02 PM Normal [facility] MR LUMBAR SPINE WO CONTon MR LUMBAR SPINE WO CONT MR LUMBAR SPINE WO CONT *ADDENDUM*Addendum : IMPRESSION: Second sentence in the findings section should read: Lumbar vertebral body heights and signal are normal. Alignment normal except for L4-5 and L5-S1 spondylolisthesis. 27 Finalized by Ari Siegel MD on 07/09/2024 12:42 PM Normal [facility] URN MACROSCOPIC NURon 2023 BILIRUBIN DEVAUGHN Negative Normal NEG [facility] Comment on above: Performed By: #### B MP, CBCA, 74836-5 #### [facility] ([id number]) [address] [place] [address] 05160 BLOOD/HGB DEVAUGHN Trace Abnormal NEG [facility] Comment on above: Performed By: #### B MP, CBCA, 04301-4 #### [facility] ([id number]) [address] [place] [address] 05140 GLUCOSE DEVAUGHN Negative Normal NEG [facility] Comment on above: Performed By: #### B MP, CBCA, 10964-1 #### [facility] ([id number]) [address] [place] [address] 20035 KETONES DEVAUGHN Negative Normal NEG [facility] Comment on above: Performed By: #### B MP, CBCA, 38856-0 #### [facility] ([id number]) [address] [place] [address] 45110 LEUKOCYTE ESTERASE DEVAUGHN Negative Normal NEG [facility] Comment on above: Performed By: #### B JERRI PHILLIPSA, 01403-3 #### [facility] ([id number]) [address] [place] [address] 68733 NITRITE DEVAUGHN Negative Normal NEG [facility] Comment on above: Performed By: #### B ALAN CBCWing, 80374-1 #### [facility] ([id number]) [address] [place] [address] 27275 PH DEVAUGHN 5.5 Normal 5.0-8.5 [facility] Comment on above: Performed By: #### [place], [address]-4 #### [facility] ([id number]) [address] [place] [address] 18499 PROTEIN DEVAUGHN Negative Normal NEG [facility] Comment on above: Performed By: #### [place], [address]-6 #### [facility] ([id number]) [address] [place] [address] 81680 SPECIFIC GRAVITY DEVAUGHN >=1.030 Normal 1.003-[address] [place] [address] Comment on above: Performed By: #### Isabel PHILLIPS CBCA, 36215-2 #### [facility] ([id number]) [address] [place] [address] 12021 UROBILINOGEN DEVAUGHN 0.2 eu/dL Normal <1.1 [facility] Comment on above: Performed By: #### Isabel PHILLIPS CBCA, 64147-5 #### [facility] ([id number]) [address] [place] [address] 10350 URINE CULTUREon 05-30-2024 Bacteria identified Cx Nom (U) CULTURE R ESULTS 10-50,000 ORGANISMS/mL NORMAL UROGENITAL JOE Normal [facility] Comment on above: Performed By: #### B ALAN CBCA, 28582-7 #### [facility] ([id number]) [address] [place] [address] 78720 URN MACROSCOPIC NURon 2023 BILIRUBIN DEVAUGHN Negative Normal NEG [facility] Comment on above: Performed By: #### B MP, CBCA, 86730-8 #### [facility] ([id number]) [address] [place] [address] 79815 BLOOD/HGB DEVAUGHN Negative Normal NEG [facility] Comment on above: Performed By: #### B MP, CBCA, 38864-9 #### [facility] ([id number]) [address] [place] [address] 55177 GLUCOSE DEVAUGHN Negative Normal NEG [facility] Comment on above: Performed By: #### B MP, CBCA, 97077-5 #### [facility] ([id number]) [address] [place] [address] [place] [address] KETONES DEVAUGHN Negative Normal NEG [facility] Comment on above: Performed By: #### B MP, CBCA, 49932-8 #### [facility] ([id number]) [address] [place] [address] [place] [address] LEUKOCYTE ESTERASE DEVAUGHN Negative Normal NEG [facility] Comment on above: Performed By: #### B MP, CBCA, 39262-1 #### [facility] ([id number]) [address] [place] [address] [place] [address] NITRITE DEVAUGHN Negative Normal NEG [facility] Comment on above: Performed By: #### B MP, CBCA, 13321-8 #### [facility] ([id number]) [address] [place] [address] PH DEVAUGHN 5.5 Normal 5.0-8.5 [facility] Comment on above: Performed By: #### B MP, CBCA, 71652-1 #### [facility] ([id number]) [address] [place] [address] PROTEIN DEVAUGHN Negative Normal NEG [facility] Comment on above: Performed By: #### B ALAN CBCA, 92707-6 #### [facility] ([id number]) [address] [place] [address] SPECIFIC GRAVITY DEVAUGHN >=1.030 Normal 1.003-1 .03 5 [facility] Comment on above: Performed By: #### B ALAN, CBCA, 13208-5 #### [facility] ([id number]) [address] [place] [address] UROBILINOGEN DEVAUGHN 0.2 eu/dL Normal <1.1 [facility] Comment on above: Performed By: #### B ALAN, CBCA, 46788-7 #### [facility] ([id number]) [address] [place] [address]65 MR HIP RT WO CONTon 05-26-20 24 [...] Hodges MD on 05/26/2024 2:41 PM Normal [facility] XR SPINE LUMBAR 2 OR [...] James MD on 04/04/2024 3:48 AM Normal [facility] XR CHEST 2 VWSon 03-02-2024 XR CHEST [...] Bradford MD on 03/02/2024 12:57 AM Normal [facility] SARS/FLU A+B/RSV by NAAT/Mol ecularon 03-01-2024 SARS/FLU [...] operators who are performing tests using either Verimatrix DX or [employer] systems and is limited to laboratories that [...] specimen repeat. Fact Sheet for Healthcare Providers: https://www.PerfectServe.Bombfell/IForem/493986/maci nload Fact Sheet for Patients: https://www.RealGravity/IForem/465703/maci nload Normal [facility] Comment on above: Performed By: #### C OVFLR #### [facility] ([id number]) [address] [place] [address], [place] [address] XR RIBS RT 3 VWS W PA [...] Alvarenga MD on 10/26/2023 11:55 AM Normal [facility] XR SPINE LUMBAR 2 OR [...] Mosley MD on 10/26/2023 11:56 AM Normal [facility] XR SPINE THORACIC 2 VWSon [...] Borjas MD on 10/26/2023 12:00 PM Normal [facility] XR FACIAL BONES MIN 3 [...] Mosley MD on 09/28/2023 8:37 AM Normal [facility] BASIC METABOLIC PANLon 09-24 Anion gap [Moles/Vol] 9 mmol/L Normal 5-15 [facility] Comment on above: Performed By: #### B CHEYENNE PHILLIPS, 00972-2 #### [facility] ([id number]) [address] [place] [address] 17374 Calcium [Mass/Vol] 9.3 mg/dL Normal 8.5-10.5 [facility] Comment on above: Performed By: #### B CHEYENNE PHILLIPS, 39140-2 #### [facility] ([id number]) [address] [place] [address] 63111 Chloride [Moles/Vol] 102 mmol/L Normal 98-109 [facility] Comment on above: Performed By: #### B CHEYENNE PHILLIPS, 39622-4 #### [facility] ([id number]) [address] [place] [address] 61316 CO2 [Moles/Vol] 26 mmol/L Normal 22-32 [facility] Comment on above: Performed By: #### B CHEYENNE PHILLIPS, 71693-8 #### [facility] ([id number]) [address] [place] [address] 92988 Creatinine [Mass/Vol] 0.64 mg/dL Normal 0.40-1.00 [facility] Comment on above: Result Comment: METH OD TRACEABLE TO IDMS STANDARD Performed By: #### B CHEYENNE PHILLIPS, 24501-3 #### [facility] ([id number]) [address] [place] [address] 75811 eGFR (CKD-EPI) NON-RACE DEPENDENT >90 Normal >59 [facility] Comment on above: Result Comment: Reported eGFR is based on the CKD-EPI 2020 equation that does not use a race coefficient. Performed By: #### B CHEYENNE PHILLIPS, 40337-8 #### [facility] ([id number]) [address] [place] [address] 79878 Glucose [Mass/Vol] 202 mg/dL High 65-99 [facility] Comment on above: Performed By: #### B MP, CBCA, 36087-6 #### [facility] ([id number]) [address] [place] [address] 03119 Potassium [Moles/Vol] 3.8 mmol/L Normal 3.5-5.0 [facility] Comment on above: Performed By: #### B MP, CBCA, 57040-6 #### [facility] ([id number]) [address] [place] [address] 42733 Sodium [Moles/Vol] 137 mmol/L Normal 134-146 [facility] Comment on above: Performed By: #### B MP, CBCA, 00714-9 #### [facility] ([id number]) [address] [place] [address] 61789 Urea nitrogen [Mass/Vol] 13 mg/dL Normal 5-27 [facility] Comment on above: Performed By: #### B MP, CBCA, 19705-0 #### [facility] ([id number]) [address] [place] [address] 12661 CBC AND AUTO DIFFon 12-20-20 23 ABSOLUTE BASOPHIL 0.1 X10E9/L Normal 0.0-0.2 [facility] Comment on above: Performed By: #### B MP, CBCA, 68078-5 #### [facility] ([id number]) [address] [place] [address] 88900 ABSOLUTE NEUTROPHIL 3.7 X10E9/L Normal 1.5-6.6 [facility] Comment on above: Performed By: #### B MP, CBCA, 12776-7 #### [facility] ([id number]) [address] [place] [address] 41323 Basophils/100 WBC (Bld) 1.2 % Normal [facility] Comment on above: Performed By: #### B MP, CBCA, 02147-1 #### [facility] ([id number]) [address] [place] [address] 15131 Eosinophils (Bld) [#/Vol] 0.4 10*3/uL Normal 0.0-0.4 [facility] Comment on above: Performed By: #### B MP, CBCA, 23377-1 #### [facility] ([id number]) [address] [place] [address] 33106 Eosinophils/100 WBC (Bld) 6.7 % Normal [facility] Comment on above: Performed By: #### B MP, CBCA, 10867-7 #### [facility] ([id number]) [address] [place] [address] 63225 Erythrocyte distribution wid th (RBC) [Ratio] 13.7 % Normal 11.5-15.0 [facility] Comment on above: Performed By: #### B MP, CBCA, 82117-7 #### [facility] ([id number]) [address] [place] [address] 13756 Hematocrit (Bld) [Volume fraction] 39.1 % Normal 35-47 [facility] Comment on above: Performed By: #### B ALAN, CBCA, 80560-5 #### [facility] ([id number]) [address] [place] [address] 02904 Hemoglobin (Bld) [Mass/Vol] 12.9 g/dL Normal 11.7-15. 5 [facility] Comment on above: Performed By: #### B MP, CBCA, 22627-1 #### [facility] ([id number]) [address] [place] [address] 80206 Lymphocytes (Bld) [#/Vol] 1.4 10*3/uL Normal 1.0-3.5 [facility] Comment on above: Performed By: #### B MP, CBCA, 04099-7 #### [facility] ([id number]) [address] [place] [address] 24640 Lymphocytes/100 WBC (Bld) 22.9 % Normal [facility] Comment on above: Performed By: #### B ALAN, CBCA, 85219-0 #### [facility] ([id number]) [address] [place] [address] 32186 MCH (RBC) [Entitic mass] 28.4 pg Normal 27-34 [facility] Comment on above: Performed By: #### B ALAN, CBCA, 03363-0 #### [facility] ([id number]) [address] [place] [address] 48082 MCHC (RBC) [Mass/Vol] 33.0 g/dL Normal 32-36 [facility] Comment on above: Performed By: #### B ALAN, CBCA, 77947-9 #### [facility] ([id number]) [address] [place] [address] 42670 MCV (RBC) [Entitic vol] 86 fL Normal 80-100 [facility] Comment on above: Performed By: #### B ALAN, CBCA, 44937-4 #### [facility] ([id number]) [address] [place] [address] 10676 Monocytes (Bld) [#/Vol] 0.6 10*3/uL Normal 0-0.9 [facility] Comment on above: Performed By: #### B ALAN, CBCA, 31226-6 #### [facility] ([id number]) [address] [place] [address] 26554 Monocytes/100 WBC (Bld) 9.8 % Normal [facility] Comment on above: Performed By: #### B ALAN, CBCA, 54028-8 #### [facility] ([id number]) [address] [place] [address] 66908 Neutrophils/100 WBC (Bld) 59.4 % Normal [facility] Comment on above: Performed By: #### B ALAN, CBCA, 12949-6 #### [facility] ([id number]) [address] [place] [address] 23393 Platelet mean volume (Bld) [Entitic vol] 8.4 fL Normal 7-12 [facility] Comment on above: Performed By: #### B ALAN, CBCA, 90404-9 #### [facility] ([id number]) [address] [place] [address] 77758 Platelets (Bld) [#/Vol] 219 10*3/uL Normal 150-450 [facility] Comment on above: Performed By: #### B ALAN, CBCA, 81980-6 #### [facility] ([id number]) [address] [place] [address] 56596 RBC COUNT 4.53 X10E12/L Normal 3.80-5.20 [facility] Comment on above: Performed By: #### B ALAN, CBCA, 54516-5 #### [facility] ([id number]) [address] [place] [address] 76173 WBC (Bld) [#/Vol] 6.2 10*3/uL Normal 4.0-11.0 [facility] Comment on above: Performed By: #### B ALAN, CBCA, 83837-3 #### [facility] ([id number]) [address] [place] [address] 18445 SARS/FLU A+B/RSV [facility] SARS/FLU A+B/RSV by NAAT/Molecular FLU [...] operators who are performing tests using either Quip or [employer] systems and is limited to laboratories that [...] repeat. Fact Sheet for Healthcare Providers: https://www.fda.go v/media/192395/maci nload Fact Sheet for Patients: https://www.fda.go v/media/588668/maci nload Normal [facility] Comment on above: Performed By: #### C OVFLR #### [facility] ([id number]) [address] [place] [address], [place] [address] TROPONIN Ion 09-24-2023 Troponin I.cardiac [Mass/Vol] ng/mL Normal 0.00-0 .04 [facility] Comment on above: Performed By: #### B MP, CBCA, 13117-9 #### [facility] ([id number]) 5 [facility], [place] [address] XR CHEST 2 VWSon 09-24-2023 XR CHEST [...] Thomas Shrestha on 09/24/2023 9:20 AM Normal [facility] Cult,Urineon 05-16-2023 Cult,Urine Specimen Description .CLEAN CATCH URINE Culture NO SIGNIFICANT GROWTH Report Status FINAL 05/16/2023 Normal [facility] Comment on above: Performed By: #### U RC #### [address] [address] Help Desk Technician: Dallas Burton MD [facility] [address] [place] [address] [place] [address] Help Desk Technician: Lindy Odonnell MD Urinalysis w/ Microon 2022 Bilirubin, SemiQt,Ur Negative Normal NEG [facility] Comment on above: Performed By: #### U AMIC #### [facility] [address] [place] [address] [place] [address] Help Desk Technician: Lindy Odonnell MD Blood, Urine Negative Normal NEG [facility] Comment on above: Performed By: #### U AMIC #### [facility] [address] [place] [address] [place] [address] Help Desk Technician: Lindy Odonnell MD Clarity (U) Clear Normal CLEAR [facility] Comment on above: Performed By: #### U AMIC #### [facility] [address] [place] [address] [place] [address] Help Desk Technician: Lindy Odonnell MD Color (U) Yellow Normal YEL [facility] Comment on above: Performed By: #### U AMIC #### [facility] [address] [place] [address] Help Desk Technician: Lindy Odonnell MD Epithelial cells LM Ql (Urin e sed) 2 TO 5 Normal 0-25 [facility] Comment on above: Performed By: #### U AMIC #### [facility] [address] [place], [place] [address] Help Desk Technician: Lindy Odonnell MD Glucose Ql (U) Negative Normal NEG [facility] Comment on above: Performed By: #### U AMIC #### [facility] [address] [place], [place] [address]83 Help Desk Technician: Lindy Odonnell MD Ketones Ql (U) Negative Normal NEG [facility] Comment on above: Performed By: #### U AMIC #### [facility] [address] [place], [place] [address]83 Help Desk Technician: Lindy Odonnell MD Leukocyte esterase Test stri p Ql (U) Negative Normal [facility] Comment on above: Performed By: #### U AMIC #### [facility] [address] [place], [place] 9725483 Help Desk Technician: Lindy Odonnell MD Nitrite,Ur Negative Normal [facility] Comment on above: Performed By: #### U AMIC #### [facility] [address] [place], [place] [address]83 Help Desk Technician: Lindy Odonnell MD PH,Ur 5.5 Normal 5.0-9.0 [facility] Comment on above: Performed By: #### U AMIC #### [facility] [address] [place], [place] [address]7783 Help Desk Technician: Lindy Odonnell MD Protein Ql (U) Negative Normal [facility] Comment on above: Performed By: #### U AMIC #### [facility] [address] [place], [place] 5872883 Help Desk Technician: Lindy Odonnell MD Spec. [place],Ur 1.025 High 1.010-1.02 0 [facility] Comment on above: Performed By: #### U AMIC #### [facility] [address] [place], [facility] Help Desk Technician: Lindy Odonnell MD Urine RBC's 0 TO 2 Normal 0-2 [facility] Comment on above: Performed By: #### U AMIC #### [facility] [address] [place], [place] 6299183 Help Desk Technician: Lindy Odonnell MD Urine WBC's 0 TO 2 Normal 0-5 [facility] Comment on above: Performed By: #### U AMIC #### [facility] [address] [place], [place] [address]83 Help Desk Technician: Lindy Odonnell MD Urobilinogen,Ur Normal Normal 0.0-1.0 [facility] Comment on above: Performed By: #### U AMIC #### [facility] [address] [place], [place] [address]83 Help Desk Technician: Lindy Odonnell MD CBC AUTO DIFFon 01-05-2023 BASO # 0.0 103/ul Normal 0.0-0.1 [facility] Comment on above: Performed By: #### C BC #### [facility] [address] [address] [address] Traci Cerna Basophils/100 WBC (Bld) 0.7 % Normal 0.2-2.0 [facility] Comment on above: Performed By: #### C BC #### [facility] [address] [address] [address] Traci Cerna EO # 0.2 103/ul Normal 0.0-0.7 [facility] Comment on above: Performed By: #### C BC #### [facility] [address] [place] [address] Dr. Traci Cerna Eosinophils/100 WBC (Bld) 3.5 % Normal 0.9-7.0 [facility] Comment on above: Performed By: #### C BC #### [facility] [address] [place] [address] Dr. Traci Cerna Erythrocyte distribution wid th (RBC) [Ratio] 13.6 % Normal 11.0-15.0 [facility] Comment on above: Performed By: #### C BC #### [facility] [address] [place] [address] Dr. Traci Cerna Hematocrit (Bld) [Volume fraction] 38.9 % Normal 36.0-48.0 [facility] Comment on above: Performed By: #### C BC #### [facility] [address] [place] [address] Dr. Traci Cerna Hemoglobin (Bld) [Mass/Vol] 12.8 g/dL Normal 12.0-16. 0 [facility] Comment on above: Performed By: #### C BC #### [facility] [address] [place] [address] Dr. Traci Cerna IG # 0.01 10e3/ul Normal 0.00-0.03 [facility] Comment on above: Performed By: #### C BC #### [facility] [address] [place] [address] Dr. Traci Cerna IG % 0.2 % Normal 0.0-0.5 [facility] Comment on above: Performed By: #### C BC #### [facility] [address] [place] [address] Dr. Traci Cerna LYMPH # 2.0 103/ul Normal 1.2-3.8 [facility] Comment on above: Performed By: #### C BC #### [facility] [address] [place] [address] Dr. Traci Cerna Lymphocytes/100 WBC (Bld) 37.8 % Normal 20.5-60.0 [facility] Comment on above: Performed By: #### C BC #### [facility] [address] [place] [address] Dr. Traci Cerna MANUAL DIFF REQ NO Normal [facility] Comment on above: Performed By: #### C BC #### [facility] [address] [place] [address] Dr. Traci Cerna MCH (RBC) [Entitic mass] 28.6 pg Normal 26.7-34.0 [facility] Comment on above: Performed By: #### C BC #### [facility] [address] [place] [address] Dr. Traci Cerna MCHC (RBC) [Mass/Vol] 32.9 g/dL Normal 29.9-35.2 [facility] Comment on above: Performed By: #### C BC #### [facility] [address] [place] [address] Dr. Traci Cerna MCV (RBC) [Entitic vol] 86.8 fL Normal 81.0-99.0 [facility] Comment on above: Performed By: #### C BC #### [facility] [address] [place] [address] Dr. Traci Cerna MONO # 0.6 103/ul Normal 0.3-0.8 [facility] Comment on above: Performed By: #### C BC #### [facility] [address] [place] [address] Dr. Traci Cerna Monocytes/100 WBC (Bld) 10.8 % Normal 1.7-12.0 [facility] Comment on above: Performed By: #### C BC #### [facility] [address] [place] [address] Dr. Traci Cerna NEUT # 2.5 103/ul Normal 1.4-6.5 [facility] Comment on above: Performed By: #### C BC #### [facility] [address] [place] [address] Dr. Traci Cerna Neutrophils/100 WBC (Bld) 47.0 % Normal 43.0-75.0 [facility] Comment on above: Performed By: #### C BC #### [facility] [address] [place], [place] [address] Dr. Traci Cerna Platelet mean volume (Bld) [Entitic vol] 9.9 fL Normal 9.5-13.5 [facility] Comment on above: Performed By: #### C BC #### [facility] [address] [address] [address] Traci Cerna PLT 218 103/ul Normal 150-450 [facility] Comment on above: Performed By: #### C BC #### [facility] [address] [address] [address] Traci Cerna RBC 4.48 106/ul Normal 4.20-5.40 [facility] Comment on above: Performed By: #### C BC #### [facility] [address] [address] [address] Traci Cerna WBC 5.4 103/ul Normal 4.0-11.0 [facility] Comment on above: Performed By: #### C BC #### [facility] [address] NECK ST WO [...] SUSAN PENDLETON Date: 2023-01-05 20:31 Normal [facility] PROF CHEM 8 (BAS METB)on Anion gap [Moles/Vol] 12.3 mmol/L Normal Th [facility] Comment on above: Performed By: #### T SH, BMP #### [facility] [address] [place] [address] Dr. Traci Cerna Calcium [Mass/Vol] 9.4 mg/dL Normal 8.5-10.1 [facility] Comment on above: Performed By: #### T SH, BMP #### [facility] [address] [place] [address] Dr. Traci Cerna Chloride [Moles/Vol] 105 mmol/L Normal 98-107 [facility] Comment on above: Performed By: #### T EMMA, BMP #### [facility] [address] [place] [address] Dr. Traci Cerna CO2 [Moles/Vol] 29.0 mmol/L Normal 21.0-32.0 [facility] Comment on above: Performed By: #### T EMMA, BMP #### [facility] [address] [place] [address] Dr. Traci Cerna Creatinine [Mass/Vol] 0.78 mg/dL Normal 0.55-1.02 [facility] Comment on above: Performed By: #### T EMMA, BMP #### [facility] [address] [place] [address] Dr. Traci Cerna EGFR-AF HONDURAN >60 Normal >=60 [facility] Comment on above: Performed By: #### T EMMA, BMP #### [facility] [address] [place] [address] Dr. Traci Cerna EGFR-NON AF HONDURAN >60 Normal >=60 [facility] Comment on above: Performed By: #### T EMMA, BMP #### [facility] [address] [place] [address] Dr. Traci Cerna Glucose [Mass/Vol] 178 mg/dL Critically high 74-106 [facility] Comment on above: Performed By: #### T EMMA, BMP #### [facility] [address] [place] [address] Dr. Traci Cerna Potassium [Moles/Vol] 4.3 mmol/L Normal 3.5-5.1 [facility] Comment on above: Performed By: #### T SH, BMP #### [facility] [address] [place] [address] Dr. Traci Cerna Sodium [Moles/Vol] 142 mmol/L Normal 136-145 [facility] Comment on above: Performed By: #### T SH, BMP #### [facility] [address] [place] [address] Dr. Traci Cerna Urea nitrogen [Mass/Vol] 21.0 mg/dL Critically high 7.0-18 .0 [facility] Comment on above: Performed By: #### T SH, BMP #### [facility] [address] [place] [address] Dr. Traci Cerna Urea nitrogen/Creatinine [Ma ss ratio] 26.9 mg/mg Normal [facility] Comment on above: Performed By: #### T SH, BMP #### [facility] [address] [place] [address] Dr. Traci Cerna TSHon 01-05-2023 TSH 0.650 uIU/mL Normal 0.358-3.74 0 [facility] Comment on above: Performed By: #### T SH, BMP #### [facility] [address] [place] [address] Dr. Traci Cerna US Thyroidon 12-30-2022 US Thyroid CLINICAL HISTORY: Enlarged thyroid on physical exam. COMPARISON: None available. TECHNIQUE: Ultrasound of the thyroid was performed with a regional survey. Reference: ACR Thyroid, Imaging Recording and Data System (TI-RADS): White paper of the ACR TI-RADS committee. Journal of the [place] [employer]: Volume 14, issue 5, [...] by Mac Dai on 01/01/2023 0924 Normal [facility] Cl[facility] Grader Colonoscopy studyOrdered By: Jairo Fisher on 04-03-2021 No dictation [employer] Work Phone: [employer] Work Phone: EsophagogastroduodenoscopyOr dered By: Jairo Fisher on 04-03-2021 No dictation [employer] Work Phone: [employer] Work Phone: Vital Signs Date Time Vital Sign Value Performing Clinician Facility 12-08-2023 09:58-0500 Body height 162.6 cm Narinder Palomo MD Work Phone: [facility] 12-08-2023 09:58-0500 Body mass index (BMI) [Ratio] 33.99 kg/m2 Narinder Palomo MD Work Phone: [facility] 12-08-2023 09:58-0500 Body weight 89.81 kg Narinder Palomo MD Work Phone: [facility] 12-08-2023 09:58-0500 Diastolic blood pressure 98 mm[Hg] Narinder Palomo MD Work Phone: [facility] 12-08-2023 09:58-0500 Heart rate 95 /min Narinder Palomo MD Work Phone: [facility] 12-08-2023 09:58-0500 SaO2% (BldA) [Mass fraction] 96 % Narinder Palomo MD Work Phone: [facility] 12-08-2023 09:58-0500 Systolic blood pressure 158 mm[Hg] Narinder Palomo MD Work Phone: [facility] 12-02-2023 10:52-0500 Body height 162.6 cm Columba Gonzalez MD Work Phone: [facility] 12-02-2023 10:52-0500 Body mass index (BMI) [Ratio] 34.33 kg/m2 Columba Gonzalez MD Work Phone: [facility] 12-02-2023 10:52-0500 Body weight 90.72 kg Columba Gonzalez MD Work Phone: [facility] 12-02-2023 10:52-0500 Diastolic blood pressure 92 mm[Hg] Columba Gonzalez MD Work Phone: [facility] 12-02-2023 10:52-0500 Heart rate 95 /min Columba Gonzalez MD Work Phone: [facility] 12-02-2023 10:52-0500 SaO2% (BldA) [Mass fraction] 96 % Columba Gonzalez MD Work Phone: [employer] 12-02-2023 10:52-0500 Systolic blood pressure 160 mm[Hg] Columba Gonzalez MD Work Phone: [employer] 05-29-2022 14:30-0400 Body height 162.56 cm Krishan Madrid Other [employer] Other 05-29-2022 14:30-0400 Body mass index (BMI) [Ratio] 35.36 kg/m2 Krishan Madrid Other [employer] Other 05-29-2022 14:30-0400 Body weight 93.44 kg Krishan Madrid Other [facility] Other 04-03-2021 10:30-0400 Diastolic blood pressure 66 mm[Hg] Jairo Fisher MD Work Phone: [employer] Work Phone: 04-03-2021 10:30-0400 Heart rate 75 /min Jairo Fisher MD Work Phone: [employer] Work Phone: 04-03-2021 10:30-0400 Respiratory rate 18 /min Jairo Fisher MD Work Phone: [employer] Work Phone: 04-03-2021 10:30-0400 SaO2% (BldA) [Mass fraction] 94 % Jairo Fisher MD Work Phone: [employer] Work Phone: 04-03-2021 10:30-0400 Systolic blood pressure 118 mm[Hg] Jairo Fisher MD Work Phone: [employer] Work Phone: 04-03-2021 10:09-0400 Body temperature 97.39 [degF] Jairo Fisher MD Work Phone: [employer] Work Phone: 04-03-2021 08:45-0400 Body mass index (BMI) [Ratio] 36.05 kg/m2 Jairo Fisher MD Work Phone: [employer] Work Phone: 04-03-2021 08:45-0400 Body weight 95.25 kg Jairo Fisher MD Work Phone: [employer] Work Phone: 03-13-2021 14:25-0400 Body height 162.6 cm Jairo Fisher MD Work Phone: [facility] Work Phone: Encounters Encounter Date Encounter Type Care Provider Facility Start: 08-01-2024 End: 08-01-2024 Documentation procedure Tito Jarrell RN [facility] Start: 07-30-2024 End: 07-30-2024 Orders Only Johanna Ray MD Work Phone: [facility] Comment on above: Adrenal incidentalom a (CMS-HCC) (Primary Dx) Start: 07-26-2024 End: 07-26-2024 ambulatory Nolberto Lerma MD Facility:[facility] Start: 07-18-2024 End: 07-18-2024 Emergency department patient visit [facility] Start: 07-11-2024 End: 07-11-2024 Emergency department patient visit [facility] Start: 07-09-2024 End: 07-09-2024 ambulatory [facility] Start: 07-09-2024 End: 07-09-2024 ambulatory [facility] Start: 06-28-2024 [facility] Start: 06-24-2024 End: 06-24-2024 Emergency department patient visit DHARA SNELL [facility] Start: 06-16-2024 End: 06-16-2024 Emergency department patient visit [facility] Start: 05-30-2024 End: 05-30-2024 Emergency department patient visit MARINO RHEA [facility] Start: 05-24-2024 End: 05-24-2024 ambulatory MARITZA ZAMARRIPA [facility] Start: 04-04-2024 End: 04-05-2024 Emergency department patient visit SAMANTHA CERDA [facility] Start: 03-02-2024 End: 03-03-2024 Emergency department patient visit LYNN IRENA [facility] Start: 03-01-2024 End: 03-02-2024 Emergency department patient visit BRISA MUKHERJEE [facility] Start: 01-18-2024 End: 01-18-2024 Emergency department patient visit GLORIA K [facility] Start: 12-12-2023 ambulatory Facility:[facility] Start: 12-10-2023 Telephone encounter Narinder villeda MD Work Phone: [facility] - Sleep Disorders Comment on above: Sleep Lab (PSG) Start: 12-08-2023 End: 12-08-2023 Office outpatient new 45 minutes Narinder Palomo MD Work Phone: [facility] Pulmonary/Sleep Medicine Comment on above: Pulmonary nodule (Pr imary Dx); HERMILA (obstructive sleep apnea); Obesity (BMI 30-39.9) Start: 12-08-2023 End: 12-08-2023 ambulatory [facility] Start: 12-02-2023 End: 12-02-2023 Office outpatient visit 15 minutes David Ybarra MD Work Phone: [facility] Cardiology Comment on above: Other chest pain (Pr imary Dx); Essential hypertension Start: 12-02-2023 End: 12-02-2023 ambulatory COLUMBA Love CARLOS [facility] Start: 11-18-[address] [facility] Start: 10-26-2023 End: 10-27-2023 Emergency department patient visit JENI CATALAN [facility] Start: 10-21-2023 End: 10-21-2023 ambulatory KAYLA Madisyn DICKSON Not Available Start: 09-28-2023 End: 09-29-2023 Emergency department patient visit BRUCE Malgorzata GODWIN [facility] Start: 09-28-2023 End: 09-28-2023 Emergency department patient visit GLORIA K [facility] Start: 09-24-2023 End: 09-25-2023 Emergency department patient visit HERMILO CUMMINGS [facility] Start: 05-15-2023 End: 05-16-2023 ambulatory HANNAH KARLENE [facility] Start: 01-05-2023 End: 01-05-[address] LARISA WORRELL . Facility:[facility] Start: 05-29-2022 End: 05-29-2022 ambulatory Krishan Madrid Other [facility] Other Start: 05-29-2022 Office outpatient vi sit 15 minutes Krishan Madrid [facility] Start: 04-18-2022 End: 04-18-2022 Subsequent hospital visit by physician Gloria Taylor DO Work Phone: [facility] Laboratory Start: 04-10-2022 End: 04-11-[address] DOCTOR US Facility:[facility] Start: 03-26-[address] DOCTOR US Facility :[facility] Start: 02-11-2022 End: 02-12-[address] DOCTOR US Facility:[facility] Start: 04-03-2021 End: 04-03-2021 Subsequent hospital visit by physician Jairo Fisher MD Work Phone: [facility] OR Start: 09-07-2020 End: 09-07-2020 [facility] encounter [facility] Start: 12-06-2019 End: 12-06-2019 Subsequent hospital visit by physician Jeni Antonio [facility] Comment on above: Encounter for well w domonique exam with routine gynecological exam Start: 06-15-2018 Patient encounter status Abdulaziz Gonzalez MD Work Phone: [facility] Start: 12-22-2017 End: 12-23-2017 Ambulatory DEFAULT PHYSICIAN Facility:[facility] Start: 07-19-2013 End: 05-04-2020 Patient encounter status Jairo Fisher MD Work Phone: [facility] Procedures Date Procedure Procedure Detail Performing Clinician [...] Td Vaccines (2 - Tdap) [facility] Start: 06-14-2026 DTaP/Tdap/Td vaccine (2 - Tdap) DTaP/Tdap/Td vaccine (2 - Tdap) [facility] Start: 04-03-2026 Screening for malignant neoplasm of colon [facility] Start: 07-18-2025 Adult BMI Screening Adult BMI Screening [facility] Start: 07-18-2025 Tobacco Screening Tobacco Screening [facility] Start: 12-07-2024 Adult BMI Screening Adult BMI Screening [facility] Start: 12-07-2024 Tobacco Screening Tobacco Screening [facility] Start: 12-02-2024 Adult BMI Screening Adult BMI Screening [facility] Start: 12-02-2024 Tobacco Screening Tobacco Screening [facility] Start: 08-10-2024 End: 08-10-2024 Patient encounter procedure 08/10/2024 12:45 PM EST Office Visit [facility] [address] [place] [address] [place] [address] Seb Aguirre MD [address] [place] [address] [facility] Start: 06-06-2024 COVID-19 Vaccine () COVID-19 Vaccine () [facility] Start: 06-06-2024 Influenza vaccination Influenza Vaccine [facility] Start: 01-14-2024 Adult BMI Follow Up Plan Adult BMI Follow Up Plan [facility] Start: 12-08-2023 End: 12-08-2023 Patient encounter procedure 12/08/2023 10:00 AM EST Office Visit [facility] [address] [place] [id number] Narinder Palomo MD [address] [place] [address] [facility] Start: 06-06-2023 COVID-19 Vaccine ( season) COVID-19 Vaccine ( season) [facility] Start: 06-22-2022 Depression Screening Depression Screening [facility] Start: 06-06-2022 Influenza vaccination Flu vaccine (#1) [facility] [employer] Start: 04-04-2022 Depression Screen Depression Screen [employer] Start: 03-15-2022 Screening for malignant neoplasm of breast Breast cancer screen [employer] Start: 06-06-2021 Influenza vaccination Flu vaccine (Season Ended) [employer] Phone: Start: 04-14-2021 Diabetic retinal exam Diabetic retinal exam [employer] Phone: Comment on above: Postponed from 01/11/1960 (Not Indicated ) Start: 04-10-2021 End: 04-10-2021 Patient encounter procedure 04/10/2021 Office Visit General Surgery Jairo Fisher MD [address] [place] [address] [facility] Start: 04-04-2021 End: 04-04-2021 Patient encounter procedure 04/04/2021 Office Visit Obstetrics and Gynecology Inderjit Garcia MD [address] [place] [address] [facility] Start: 04-04-2021 Annual Wellness Visit (AWV) Annual Wellness Visit (AWV) [employer] Phone: Comment on above: Postponed from 03/28/2019 (Not Indicated ) Start: 04-04-2021 Creatinine measurement Creatinine monitoring [employer] Phone: Comment on above: Postponed from 11/19/2018 (Not Indicated ) Start: 04-04-2021 Diabetic foot examination Diabetic foot exam [employer] Phone: Comment on above: Postponed from 01/11/1960 (Not Indicated ) Start: 04-04-2021 Diabetic microalbuminuria test Diabetic microalbuminuria test [employer] Phone: Comment on above: Postponed from 01/11/1968 (Not Indicated ) Start: 04-04-2021 Hemoglobin A1c measurement A1C test (Diabetic or Prediabetic) [employer] Phone: Comment on above: Postponed from 01/11/1960 (Not Indicated ) Start: 04-04-2021 Lipid panel Lipid screen [employer] Phone: Comment on above: Postponed from 01/11/1960 (Not Indicated ) Start: 04-04-2021 Potassium monitoring Potassium monitoring [employer] Phone: Comment on above: Postponed from 11/19/2018 (Not Indicated ) Start: 03-15-2020 Colon cancer screen colonoscopy Colon cancer screen colonoscopy [facility] [place] Start: 03-28-2019 Annual Wellness Visit (AWV) Annual Wellness Visit (AWV) [facility] [place] Start: 11-19-2018 Creatinine monitoring Creatinine monitoring [facility] [place] Start: 11-19-2018 Potassium monitoring Potassium monitoring [facility] [place] Start: 10-11-2017 Breast cancer screen Breast cancer screen [place], [place] Start: 07-14-2017 Pneumococcal 65+ years Vaccine (2 of 2 - PPSV23) Pneumococcal 65+ years Vaccine (2 of 2 - PPSV23) [place] Start: 09-08-2015 Shingles Vaccine (2 of 3) Shingles Vaccine (2 of 3) [place], [place] Start: 2015 DEXA (modify frequency per FRAX score) DEXA (modify frequency per FRAX score) [place] Start: 2015 Fall Risk Screening Fall Risk Screening [facility] Start: 2005 Screening for osteoporosis DEXA (modify frequency per FRAX score) [facility] Start: 1995 Screening for malignant neoplasm of colon [facility] Start: 1969 Hepatitis B vaccine (1 of 3 - Risk 3-dose series) Hepatitis B vaccine (1 of 3 - Risk 3-dose series) [place] Start: 01-11-1968 Diabetic foot examination Diabetic Foot Exam [facility] Start: 01-11-1968 Diabetic microalbuminuria test Diabetic microalbuminuria test [place] Start: 01-11-1968 Diabetic retinal exam Diabetic retinal exam [facility] Start: 01-11-1968 Hepatitis C screening Hepatitis C screen [facility] Start: 01-11-1968 Urine screening for protein Diabetic microalbuminuria test [facility] Start: 1962 COVID-19 Vaccine (1) COVID-19 Vaccine (1) [facility] Work Phone: Start: 1962 Depression Screening Depression Screening [facility] Start: 01-11-1960 [object Object] Diabetic foot exam [place] Start: 01-11-1960 A1C test (Diabetic or Prediabetic) A1C test (Diabetic or Prediabetic) [place] Start: 01-11-1960 Diabetic foot examination Diabetic foot exam [facility] Start: 01-11-1960 Diabetic retinal exam Diabetic retinal exam [place], [place] Start: 01-11-1960 Hemoglobin A1c measurement A1C test (Diabetic or Prediabetic) [facility] Start: 01-11-1960 Lipid panel Lipids [facility] Start: 01-11-1960 Lipid screen Lipid screen [place] Start: 1955 COVID-19 Vaccine (1) COVID-19 Vaccine (1) [facility] Start: 1950 Annual Wellness Visit (AWV) Annual Wellness Visit (AWV) [facility] [employer] Start: 1950 Glaucoma screening Diabetic Ophthalmology Exam [employer] Start: 1950 Hepatitis C screen Hepatitis C screen [employer] Start: 1950 Hepatitis C screening Hepatitis C screen [employer] Phone: Start: 1950 Medicare Annual Wellness Visit Medicare Annual Wellness Visit [facility] End: 07-30-2025 Aldosterone Note: Restrict Location Aldosterone Note: Restrict Location Lab Routine 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[facility]) 1 Occurrences starting 07/30/2024 until 07/30/2025 [employer] Comment on above: 1 Occurrences starting 07/30/2024 until 07/30/2025 End: 07-30-2025 Cortisol Cortisol Lab Routine 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[facility]) 1 Occurrences starting 07/30/2024 until 07/30/2025 [employer] Comment on above: 1 Occurrences starting 07/30/2024 until 07/30/2025 End: 12-06-2019 Cytopathology procedure, preparation of smear, genital source PAP SMEAR Lab Routine Encounter for well woman exam with routine gynecological exam 1 Occurrences starting 12/06/2019 until 12/06/2019 [employer] Comment on above: 1 Occurrences starting 12/06/2019 until 12/06/2019 End: 04-03-2021 Glucose [Mass/volume] in Serum or Plasma POCT glucose Point of Care Testing STAT One Time for 1 Occurrences starting 04/03/2021 until 04/03/2021 [employer] Phone: Comment on above: One Time for 1 Occurrences starting 03/07 until 04/03/2021 H. 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 Work Phone: Comment on above: 1 Occurrences starting 12/08/2023 until 12/07/2024 End: 07-30-2025 Renin Activity Renin Activity Lab Routine 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CMS-HCC) 1 Occurrences starting 07/30/2024 until 07/30/2025 [employer] Work Phone: Comment on above: 1 Occurrences starting 07/30/2024 until 07/30/2025 Surgical Pathology Surgical Path ology Lab Routine Release Upon Ordering for 1 Occurrences starting 04/03/2021 [employer] Work Phone: Comment on above: Release Upon Ordering for 1 Occurrences starting 04/03/2021 Immunizations Immunization Date Immunization Notes Care Provider R[facility] 08-22-2023 influenza virus vaccine, unspecified formulation Johanna Ray MD Work Phone: [employer] 07-14-2016 pneumococcal conjuga te vaccine, 13 valent [facility] 06-14-2016 diphtheria, tetanus toxoids and acellular pertussis vaccine [place], [place] 07-14-2015 zoster vaccine, live [place], [place] Payers Date Payer Category Payer Medicare ANTHEM MEDICARE [facility] [employer] [id number] 2023-Present [phone] [address] [place] [address] [id number] 2023 Medicare O ANTH MEDICARE [id number] 2023 Medicare [id number] 2019 Medicare MEDICARE MEDICAR E PART A AND B xxxxxxxxxxx 2019-Present [phone] [place] [address] xxxxxxxxxxx [id number] 2019 Unknown 2017 Unknown [id number] 1990 Medicare [id number] 1959 Medicare [id number] 1950 Unknown [id number] 2.16840.1.192736.3.579.2.593 1950 Unknown [id number] 2.16.840.1.189191.3.579.2.593 1950 Unknown [id number] 2.16.840.1.265921.3.579.2.593 1950 Unknown [id number] 2.16.840.1.499720.3.579.2.593 1950 Unknown [id number] 2.16.840.1.320086.3.579.2.173 1950 Unknown [id number] 2.16.840.1.572567.3.579.2.125 9 1950 Unknown [id number] 2.16.840.1.211815.3.579.2.128 6 1950 Unknown [id number] 2.16.840.1.025893.3.579.2.128 6 1950 Unknown [id number] 2.16.840.1.066532.3.579.2.128 6 1950 Unknown [id number] 2.16.840.1.034391.3.579.2.128 1950 Unknown [id number] 2.16.840.1.171737.3.579.2.128 1950 Unknown [id number] 2.16840.1.025625.3.579.2.128 1950 Unknown [id number] 2.16840.1.325590.3.579.2.128 1950 Unknown [id number] 2.16840.1.223309.3.579.2.128 1950 Unknown [id number] 2.16840.1.036298.3.579.2.128 1950 Unknown [id number] 2.16840.1.667990.3.579.2.128 1950 Unknown [id number] 2.16840.1.593085.3.579.2.128 1950 Unknown [id number] 2.16840.1.887442.3.579.2.128 1950 Unknown [id number] 2.16840.1.186909.3.579.2.128 1950 Unknown [id number] 2.16.840.1.361265.3.579.2.128 1950 Unknown [id number] 2.16.840.1.714374.3.579.2.128 1950 Unknown [id number] 2.16840.1.791448.3.579.2.128 6 1950 Unknown [id number] 2.16.840.1.773691.3.579.2.128 6 1950 Unknown [id number] 2.16.840.1.680244.3.579.2.128 6 1950 Unknown [id number] 2.16.840.1.331843.3.579.2.128 6 1950 Unknown [id number] 2.16.840.1.648957.3.579.2.128 6 1950 Unknown [id number] 2.16.840.1.280560.3.579.2.128 6 1950 Unknown [id number] 2.16.840.1.853854.3.579.2.128 6 1950 Unknown [id number] 2.16.840.1.058473.3.579.2.128 6 1950 Unknown [id number] 2.16.840.1.671618.3.579.2.128 6 1950 Unknown [id number] 2.16.840.1.833723.3.579.2.128 6 1950 Unknown [id number] 2.16.840.1.246663.3.579.2.196 Medicaid Self Pay [id number] Self-pay Self Pay [id number] Social History Date Type Detail Facility Start: 12-06-2019 End: 12-24-2022 Tobacco smoking status NHIS Never smoker [place] Start: 12-06-2019 End: 04-18-2022 Alcohol intake Current non-drinker of alcohol (finding) [place], [place] Start: 1950 Sex Assigned At Not on file M [place], [place] Start: 1950 Sex Assigned At Female F [facility] Start: 04-03-2021 End: 12-24-2022 Tobacco use and exposure Never used [employer] Exposure to SARS-CoV -2 (event) Not sure [employer] Start: 10-28-2020 End: 12-02-2023 Sex Assigned At [facility] Start: 12-02-2023 End: 07-18-2024 Alcohol intake Ex-drinker (finding) [facility] Start: 10-28-2020 End: 12-02-2023 History of Social function [facility] Adolescent depressio n screening assessment 0 [facility] Start: 05-11-2015 Sex Female (finding) [facility] Medical Equipment Procedure Code Equipment Code Equipment Origin al Text Equipment Identifier Dates Mesh Srg Bard [id number] Hrn Sft Rpl [id number] - [id number] Start: 06-15-2018 Goals Date Patient Goal Desired Activity /State Clinical Notes 04-03-2021 to 08-01-2024 Tito Jarrell RN - 08/01/2024 4:26 PM EDTTelephone Encounter - Radha Landers - 12/10/2023 9:50 AM ESTTelephone Encounter - Radha Landers - 12/10/2023 9:50 AM EST Note Date & Type Note Facility 08-01-2024 History of Presen t illness Narrative Pt currently in [facility] ED being seen. Received request for medical records from previous visit to [facility] Signed copy of release of medical records form received and requested records faxed to [facility]. documented in this encounter [facility] 12-10-2023 Miscellaneous Notes 3/4 received PSG order 12/09 patient will call back to schedule, sent letter with main phone number. Order Deferred PSG order and 3/4 Taleb notes in epic documented in this encounter [facility] 12-10-2023 Telephone encounter Note 3/4 received PSG order 3 patient will call back to schedule, sent letter with main phone number. Order Deferred PSG order and / Taleb notes in epic [facility] 12-08-2023 History of Presen t illness Narrative Images from the original note were not included. [facility] PUL[facility]LEEP [facility]IC[facility] [address] [address] Subjective: Chief Complaint Pulmonary nodules HPI The patient is 73-year-old female who is here as a new patient. She was referred to us because of abnormal CT scan of the chest. She hadCT scan of the chest that was done in [facility] on 11/18/2023 showed multiple bilateral lung [...] Medical History: Diagnosis Date Deep vein thrombosis ([facility]) Diabetes mellitus type 2, controlled ([facility]) GERD (gastroesophageal reflux disease) Hyperlipidemia Hypertension Renal cyst 11/16/2019 Schizophrenia simplex (CMS-HCC) Past Surgical History: Procedure Laterality Date BACK SURGERY 2014 fatty lipoma removed from back BREAST BIOPSY Left 2007 benign CHOLECYSTECTOMY COLONOSCOPY W/ POLYPECTOMY 2014 benign CYSTOSCOPY N/A 08/05/2023 Performed by Seb Aguirre MD at [facility] CYSTOSCOPY N/A 12/01/2018 Performed by Seb Aguirre MD at [facility] HIP SURGERY Left INCISIONAL HERNIA REPAIR 2009, 2016 INJECTION BLOCK EPIDURAL CAUDAL STEROID N/A 06/08/2021 Performed by Km Barba MD at [facility] INJECTION BLOCK EPIDURAL CAUDAL STEROID N/A 04/27/2021 Performed by Km Barba MD at [facility] INJECTION BLOCK NERVE MEDIAL BRANCH: bilat L 4/5 5/1 mbb Bilateral 01/19/2021 Performed by Km Barba MD at [facility] INJECTION BLOCK NERVE MEDIAL BRANCH: Bilat L 4/5 5/1 mbb Bilateral 12/01/2020 Performed by Km Barba MD [facility] KNEE ARTHROSCOPY Bilateral KNEE SURGERY left total knee RADIOFREQUENCY ABLATION SPINAL: left L 4/5 5/1 Left 03/09/2021 Performed by Km Barba MD at [facility] RADIOFREQUENCY ABLATION SPINAL: right L 4/5 5/1 Right 02/23/2021 Performed by Km Barba MD at [facility] REPAIR OF RECURRENT ABDOMINAL HERNIA WITH BARD SOFT MESH, EXPLANTATION OF OLD MESH, T.A.R. PROCEDURE N/A 06/15/2018 Performed by Jose Vasquez MD at [facility] REPLACEMENT TOTAL KNEE Right VAGINAL HYSTERECTOMY [...] to ensure the accuracy of this automated sofa back upholsterer, some errors in sofa back upholsterer may have occurred. documented in this encounter [facility]23 History of Presen t illness Narrative Negra Garcia Date of visit: 12/02/2023 Date of : 1950 Age: 73 y.o. Patient Active Problem List Diagnosis Diabetes mellitus ([facility]) Hyperlipidemia Essential hypertension Obesity, Class III, BMI 40-49.9 (morbid obesity) ([facility]) Osteoarthritis of right knee S/P right unicompartmental knee replacement Recurrent ventral hernia Pre-op testing Mixed stress and urge urinary incontinence Severe obesity (BMI 35.0-39.9) with comorbidity ([facility]) Lumbosacral spondylosis without myelopathy Renal cyst Other [...] type 2 diabetes mellitus. miscellaneous medical supply misc 1 tablet pseudoephedrine-guaiFENesin (MUCINEX D) 60-600 mg [...] antihypertensives this morning. Systolic blood pressures been 82487 mmHg at home. She actually physically feels well. She has been stressed out about her who has cognitive issues. No orthopnea. No PND. Past Medical History: Diagnosis Date Deep vein thrombosis ([facility]) Diabetes mellitus type 2, controlled ([facility]) GERD (gastroesophageal reflux disease) Hyperlipidemia Hypertension Renal cyst 11/16/2019 Schizophrenia simplex ([facility]) No data recorded No data recorded No data recorded Past Surgical History: Procedure Laterality Date BACK SURGERY 2014 fatty lipoma removed from back BREAST BIOPSY Left 2006 benign CHOLECYSTECTOMY COLONOSCOPY W/ POLYPECTOMY 2014 benign CYSTOSCOPY N/A 08/05/2023 Performed by Seb Aguirre MD at [facility] CYSTOSCOPY N/A 12/01/2018 Performed by Seb Aguirre MD at [facility] HIP SURGERY Left INCISIONAL HERNIA REPAIR 2009, 2016 INJECTION BLOCK EPIDURAL CAUDAL STEROID N/A 06/08/2021 Performed by Km Barba MD at [facility] INJECTION BLOCK EPIDURAL CAUDAL STEROID N/A 04/27/2021 Performed by Km Barba MD at [facility] INJECTION BLOCK NERVE MEDIAL BRANCH: bilat L 01/08 02/03 mbb Bilateral 01/19/2021 Performed by Km Barba MD at [facility] INJECTION BLOCK NERVE MEDIAL BRANCH: Bilat L 45 5 mbb Bilateral 12/01/2020 Performed by Km Barba MD at [facility] KNEE ARTHROSCOPY Bilateral KNEE SURGERY left total knee RADIOFREQUENCY ABLATION SPINAL: left L 4/5 5/ Left 03/09/2021 Performed by Km Barba MD at [facility] RADIOFREQUENCY ABLATION SPINAL: right L 4/5 02/03 Right 02/23/2021 Performed by Km Barba MD at [facility] REPAIR OF RECURRENT ABDOMINAL HERNIA WITH BARD SOFT MESH, EXPLANTATION OF OLD MESH, T.A.R. PROCEDURE N/A 06/15/2018 Performed by Jose Vasquez MD at [facility] REPLACEMENT TOTAL KNEE Right VAGINAL HYSTERECTOMY [...] normal EF MPI 02/2021 2. Normal coronaries [facility] 2013 3. Normal EF TTE 02/2021 4. [...] DO Referring Physician: Gloria Taylor DO [address] [place] [address] [facility] Evaluation note Encounter Date Diagnosis Assessment [...] an as-needed basis or is symptoms worsen. [employer] Other 06-29-2021 History of Present illness Narrative* [...] a responsible adult. Yes documented in this encounterimeem Phone: evaluation note* Diagnosis GERD (gastroesophageal reflux disease)- Primary Esophageal reflux documented in this encounter [employer] Phone: evaluation note* Diagnosis Other chest pain- Primary Essential hypertension Unspecified essential hypertension documented in this encounter [facility]* Diagnosis Pulmonary nodule- Primary Other diseases of lung, not elsewhere classified HERMILA (obstructive sleep apnea) Obstructive sleep apnea (adult) (pediatric) Obesity (BMI 30-39.9) [facility]* Diagnosis 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[facility] Primary documented in this encounter [employer] general Narrative - Reported* Type Description [...] replacement Surgical History hysterectomy Hospitalization History See [facility] Other Hospital Discharge instructions* Instructions* [place] [...] the nearest Emergency Room. [facility] Phone: InstructionsNot on filedocumented in this encounter [facility] filedocumented in this encounter [facility]ructionsNot on filedocumented in this encounter [facility]ructionsNot on filedocumented in this encounter [facility]ructionsNot on filedocumented in this encounter [facility] Summary Purpose Family History No Family History Records FoundNo Family History Records FoundNo Family History Records FoundNo Family History Records FoundNo Family History Records FoundNo Family History Records FoundNo Family History Records FoundNo Family History Records FoundNo Family History Records Found Advance Directives Documents on File Type Date Recorded Patient Assistant Director Of Security Expl anation Advance Directives and Living Will Power of Technical Support Manager Latest Code Status on File Code Status Date Activated Date Inactivated Comments Full Code 12/21/2012 12:14 PM 12/24/2012 4:06 PM Advance Directive Response Recorded Date/ Time Advance Directives No August 11:18am Documents on File Type Date Recorded Patient Assistant Director Of Security Expl anation ACP-Advance Directive ACP-Power of Technical Support Manager Latest Code Status on File Code Status Date Activated Date Inactivated Comments Full Code 04/03/2021 8:29 AM Full Code 12/21/2012 12:14 PM 12/24/2012 4:06 PM Documents on File Type Date Recorded Patient Assistant Director Of Security Expl anation ACP-Advance Directive ACP-Power of Technical Support Manager Latest Code Status on File Code Status [...] HERMILA (obstructive sleep apnea) Procedures PSG Diagnostic Nairnder Palomo MD [address] [place] [address] Referral ID Status Reason Start Date Expiration Date V isits Requested Visits Authorized [id number] Pending Review 12/08/2023 12/07/2024 1 1 Additional Source Comments INFORMATION SOURCE (unrecogn ized section and content) DATE CREATED AUTHOR 03/27/2018 [facility] DATE CREATED AUTHOR AUTHOR'S ORGANIZ ATION 01/08/2023 [facility] DATE CREATED AUTHOR AUTHOR'S ORGANIZ ATION 03/17/2023 [facility] dical Specialist DATE CREATED AUTHOR AUTHOR'S ORGANIZ ATION 05/17/2023 [facility] DATE CREATED AUTHOR AUTHOR'S ORGANIZ ATION 10/22/2023 [facility] dical Specialists [facility] DATE CREATED AUTHOR AUTHOR'S ORGANIZ ATION 12/13/2023 [facility] DATE CREATED AUTHOR AUTHOR'S ORGANIZ ATION 07/20/2024 [facility] DATE CREATED AUTHOR AUTHOR'S ORGANIZ ATION 07/20/2024 [facility] DATE CREATED AUTHOR AUTHOR'S ORGANIZ ATION 08/01/2024 [facility] Reason for Visit (unrecogniz ed section and content) Status Reason Specialty Diagnoses / Procedures Re ferred By Contact Referred To Contact Diagnoses Symptoms of gastroesophageal reflux Constipation REFLUX SYMPTOMS, CONSTIPATION Procedures OR COLONOSCOPY FLX DX W/COLLJ SPEC WHEN PFRMD OR ESOPHAGOGASTRODUODENOSCOPY TRANSORAL DIAGNOSTIC COLONOSCOPY DIAGNOSTIC EGD ESOPHAGOGASTRODUODENOSCOPY Jairo Fisher MD [address] [address] [facility] Reason Comments Follow-up EST PT F/U 1 YR L/S MS Reason Comments New Patient CT: 10/31/2023FT: n oneSOB: noneTobacco Use: neverStarted Tobacco: n/aHx Sleep Apnea: Yes, not currently on PAP Therapy, patient states she does not want to be on PAP therapyPS02/01/2021 Specialty Diagnoses / Procedures Referred By Tommy t Referred To Contact Pulmonary Medicine Diagnoses Pulmonary nodule Gloria Taylor, DO [address] [place] [address] sp Pulm Sleep Med [address] [place] [address] Referral ID Status Reason Start Date Expiration Date Visits Requested Visits Authorized [id number] Pending Review Specialty Services Required 11/10/2023 11/09/2024 [...] Care Teams (unrecognized sec tion and content) Relocation Counselor Relationship Specialty Start Date End Date Gloria Taylor DO [address] [place] [address] PCP - [facility] 05/09/21 Relocation Counselor Relationship Specialty Start Date End Date Gloria Taylor DO [address] [place] [address] PCP [facility] 03/28/23 Relocation Counselor Relationship Specialty Start Date End Date Gloria Taylor DO [address] [place] [address] [facility] 03/28/23 Relocation Counselor Relationship Specialty Start Date End Date Gloria Taylor DO [address] [place] [address] [facility] 03/28/23 Relocation Counselor Relationship Specialty Start Date End Date [facility] [address] [place] PCP [facility] 07/18/24 Relocation Counselor Relationship Specialty Start Date End Date Services, [facility] [address] [place] [facility] 07/18/24 FOR RECORDS PERTAINING TO PATIENTS WHO [...] BE BASED ON THE PRIMARY CLINICAL RECORDS. [facility] [employer] [facility]. provides no warranty or guarantee of the accuracy or completeness of information in this document.
[2024-08-01 18:40] VITALS: BP 159/74; PULSE 75; PULSE 93; TEMP 36.6; O2SAT 93; BMI 33.9
[2024-08-01 20:00] VITALS: BP 149/87; PULSE 94; TEMP 36.8; O2SAT 94
[2024-08-01 21:18] LABS: Glucometer 408 mg/dL (74-106)
[2024-08-01] MEDS: LACTATED RINGER'S SOLUTION 1,000 ML 100 ML IV (21:56)
[2024-08-01] MEDS: CARVEDILOL 25 MG TABLET PO (21:56)
[2024-08-01] MEDS: METHYLPREDNISOLONE SOD SUCC PF 40 MG/ML VIAL IVP (21:57)
[2024-08-01] MEDS: INSULIN ASPART 300 UNIT/3 ML PEN SUBQ (22:13)
[2024-08-02] VITALS: BP 136/72; PULSE 93; TEMP 36.6; O2SAT 94
[2024-08-02 00:40] LABS: Glucometer 344 mg/dL (74-106)
[2024-08-02 04:00] VITALS: BP 168/80; PULSE 82; TEMP 36.9; O2SAT 95
[2024-08-02] MEDS: METHYLPREDNISOLONE SOD SUCC PF 40 MG/ML VIAL IVP ×2 (05:17→10:44)
[2024-08-02] MEDS: LACTATED RINGER'S SOLUTION 1,000 ML 100 ML IV (05:17)
[2024-08-02] MEDS: ACETAMINOPHEN 325 MG TABLET PO (05:23)
[2024-08-02 05:30] LABS: Basophils Percent Auto 0.1 % (0.2-2.0); Hematocrit 38.6 % (36.0-48.0); Hemoglobin 12.6 g/dL (12.0-16.0); Immature Granulocytes Abs Auto 0.05 10^3/uL (0.00-0.03); Immature Granulocytes Pct Auto 0.6 % (0.0-0.5); Lymphocytes Absolute Auto 1.3 10^3/uL (1.2-3.8); Lymphocytes Percent Auto 15.9 % (20.5-60.0); Mean Corpuscular HGB Conc 32.6 g/dL (29.9-35.2); Mean Corpuscular Hemoglobin 28.9 pg (26.7-34.0); Mean Corpuscular Volume 88.5 fL (81.0-99.0); Mean Platelet Volume 10.2 fL (9.5-13.5); Monocytes Absolute Auto 0.1 10^3/uL (0.3-0.8); Monocytes Percent Auto 1.3 % (1.7-12.0); Neutrophils Absolute Auto 6.5 10^3/uL (1.4-6.5); Neutrophils Percent Auto 82.1 % (43.0-75.0); Platelet Count 254 10^3/uL (150-450); Red Blood Count 4.36 10^6/uL (4.20-5.40); Red Cell Distribution Width 13.1 % (11.0-15.0); White Blood Count 7.9 10^3/uL (4.0-11.0)
[2024-08-02 05:41] LABS: Anion Gap 13.6; BUN Creatinine Ratio 27.6; Calcium 9.8 mg/dL (8.5-10.1); Carbon Dioxide 25.8 mmol/L (21.0-32.0); Chloride 104 mmol/L (98-107); Estimated GFR (African America >60 (>=60 mL/min/1.73m^2); Estimated GFR (Non-African Ame >60 (>=60 mL/min/1.73m^2); Glucose 269 mg/dL (74-106); Potassium 4.4 mmol/L (3.5-5.1); Sodium 139 mmol/L (136-145)
[2024-08-02 06:05] LABS: Thyroid Stimulating Hormone 0.238 uIU/mL (0.358-3.740)
[2024-08-02 07:53] LABS: Glucometer 278 mg/dL (74-106)
[2024-08-02 08:00] VITALS: BP 166/85; PULSE 80; TEMP 36.8; O2SAT 95
[2024-08-02] MEDS: CARVEDILOL 25 MG TABLET PO (08:14)
[2024-08-02] MEDS: LISINOPRIL 20 MG TABLET 40 MG PO (08:14)
[2024-08-02] MEDS: INSULIN ASPART 300 UNIT/3 ML PEN SUBQ ×2 (08:15→11:35)
--- NOTE | 2024-08-02 08:54 | PM.HP ---
HPI H&P: HPI History of Present Illness Chief complaint: spinal stenosis of lumbar region antalgic gait Narrative: Patient is a 74 y.o white female with past medical history of hypertension and non-insulin dependent type 2 diabetes with known lumbar stenosis. She recently established with pain management and after reviewing their note read: Recent MRI: significant for multilevel severe stenosis throughout lumbar spine, as well as severe facet arthropathy at multiple levels. recently saw spine surgeon, who did not recommend immediate surgery at the time. has continued in a series of provider directed home exercises >6 weeks, without lasting benefit. uses tylenol and nsaids, but denies relief. denies adverse med side effects. They had planned for bilateral L4-5 transforaminal epidural steroid injection under fluoroscopic guidance and bilateral SI joint injections. Patient was given Tylenol #3 to try for pain. Patient presented to the ER yesterday with increased low back tenderness but bilateral lower ext weakness and not able to ambulate well. A CT of the lumbar spine did not show any acute changes but continued lumbar stenosis. Patient was given pain medications in the ER and was admitted for PT evaluation and intractable pain, weakness. Patient had elevated CK level and Myoglobin. She denies any loss of bowel but says her bladder is overactive and has had work up on it in the past and feels it's getting worse. No fevers or chills. CBC and BMP were otherwise unremarkable. This morning on exam she has already performed well with PT/OT. She still is having urgency of bladder, no stool. She denies fevers or chills. She has follow up with Pain management on Aug 09 for injections. She is having some bilateral knee pain and epigastric pain. No n/v/d. Also admits to a groin rash. Opioid HPI Opioid Management Most Recent Pain and Opioid Data: Last Pain Scale 8 08/02/24 07:00 08/02/24 Last Pain Assessment 08/02/24 12:00 Last MAR Pain Assessment 08/02/24 06:50 Last ORT Total Score 0 08/01/24 18:40 08/01/24 Last ORT Risk Category Low Risk 08/01/24 18:40 08/01/24 Review of Systems ROS Narrative ROS: a complete review of systems were reviewed with patient and are positive as below or listed in History of Chief Complaint. General: no fever, chills, night sweats Head: no headache, trauma, visual changes, nausea or vomiting Skin: bilateral groin rash Eyes: no blurriness of vision Ears: no reported hearing loss, vertigo, earache, or tinnitus Throat: no sore throat, hoarseness, swelling of neck, or tongue pain Heart: no chest pain Lungs: no shortness of breath or cough GI: no diarrhea or vomiting/nausea Urinary:urinary urgency, frequency but no pain Neuro: numbness or tingling, bilateral lower ext weakness and knee pain HEM: no bleeding issues or bruising ENDO: no thyroid problems Psych: no anxiety or depression [facility] History (Updated 08/02/24 @ 13:44 by Koki Sherwood DO) Hypertension ?I10 - Essential (primary) hypertension (ICD-10) Osteoarthritis ?M19.90 - Unspecified osteoarthritis, unspecified site (ICD-10) TMJ (dislocation of temporomandibular joint) ?S03.00XA - Dislocation of jaw, unspecified side, initial encounter (ICD-10) Diabetes ?E11.9 - Type 2 diabetes mellitus without complications (ICD-10) Surgical History History of hip replacement, total ?Z96.649 - Presence of unspecified artificial hip joint (ICD-10) History of knee replacement ?Z96.659 - Presence of unspecified artificial knee joint (ICD-10) Family History Father Family history of hypertension Mother Family history of hypertension Social History Within the past year, how often did you have a drink containing alcohol: never Score interpretation: A score less than 3 is consistent with normal alcohol consumption. Smoking status: Never smoker Non-prescribed substance use: denies use Previous occupational history: retired Highest level of school completed/degree received: 10th grade Are you now , , , , never or living with a partner: Little interest or pleasure in doing things: not at all Feeling down, depressed, or hopeless: not at all Feel stressed/tense/nervous/anxious/difficulty sleeping: not at all Meds Home Medications and Allergies Home Medications ?Medication ?Instructions ?Recorded ?Confirmed ?Type carvedilol 25 mg tablet 25 mg PO BID 10/31/23 08/01/24 History lisinopril 40 mg tablet 40 mg PO DAILY 10/31/23 08/01/24 History metformin 500 mg tablet 500 mg PO BID 10/31/23 08/01/24 History Allergies Allergy/AdvReac Type Severity Reaction Status Date / Time honey Allergy Severe Swelling Verified 05/09/24 17:15 of Lip/Tongue/Throat Penicillins Allergy Severe Swelling Verified 05/09/24 17:15 of Lip/Tongue/Throat Exam Narrative Exam Narrative: General: Patient is alert, and oriented to person, place and time, she has very pressured speech and gets tearful one minute and smiles the next Skin: bilateral inguinal yeast dermatitis Head: atraumatic, acephalic Eyes: PERRLA, no nystagmus present, conjunctiva clear, no scleral icterus Ears: normal gross auditory acuity Heart: Normal rate and rhythm, no murmurs/rubs/gallops Lungs: no audible wheezes, crackles and normal breath sounds all lung escudero Abdomen: Normal audible bowel sounds, no distension, No palpable masses, no organomegaly, no rebound/guarding/ or rigidity but tenderness in the epigastric region with palpation Musculoskeletal: muscle atrophy noted, ROM is limited due to being in hospital chair, no swelling bilateral lower extremities, no swelling of the knees, patient got up to stand on own. Neuro: CN II-X grossly intact Constitutional Vital Signs, click to edit/add: Last Vital Signs Temp 98.3 F 08/02/24 08:00 Pulse 80 08/02/24 08:00 Resp 18 08/02/24 08:00 BP 166/85 H 08/02/24 08:00 Pulse Ox 95 08/02/24 08:00 O2 Del Method Room Air 08/02/24 08:00 Results Labs Labs: Short CBC 08/01/24 08/02/24 Range/Units 16:00 05:09 WBC 6.9 7.9 (4.0-11.0) 10^3/uL Hgb 12.6 12.6 (12.0-16.0) g/dL Hct 38.7 38.6 (36.0-48.0) % Plt Count 252 254 (150-450) 10^3/uL BMP 08/01/24 08/02/24 16:00 05:09 Sodium 140 139 Potassium 4.4 4.4 Chloride 103 104 Carbon Dioxide 26.9 25.8 BUN 21.0 H 24.0 H Creatinine 0.78 0.87 Glucose 141 H 269 H Calcium 9.8 9.8 Cardiac Enzymes 08/01/24 Range/Units 16:00 Total Creatine Kinase 346 H* (26-192) U/L Liver Function 08/01/24 Range/Units 16:00 Total Bilirubin 0.5 (0.2-1.0) mg/dL AST 25 (15-37) U/L ALT 34 (14-59) U/L Alkaline Phosphatase 83 (46-116) U/L Albumin 3.6 (3.4-5.0) g/dL Urine 08/01/24 Range/Units 15:35 Urine Color Lt. yellow (YELLOW) Urine Clarity Clear (CLEAR) Urine pH 5.5 (5.0-9.0) Ur Specific [place] 1.025 (1.005-1.025) Urine Protein Negative (NEG/TRACE) mg/dL Urine Glucose (UA) Negative (NEGATIVE) mg/dL Assessment and Plan Assessment and Plan (1) Bilateral leg paresthesia: Assessment and Plan: elevated CK level, CT head was negative for acute stroke, I feel the pain and leg symptoms she is having is chronic and stems from her severe lumbar disease. Her mobility has improved overnight on the pain medications and steroids. I have reviewed Pain management's note and evaluation and agree with plan for injections. If this does not help then i recommend she seek a Neurosurgery spine evaluation. She has had all imaging, CT, Xrays and MRI. She performed well for PT/OT. She refuses home health services. She will be discharged home today with close outpatient follow up. (2) Arthritis of right hip: (3) Spinal stenosis of lumbar region at multiple levels: (4) Lumbar spondylosis: (5) Sacroiliac joint pain: (6) At high risk for falls: (7) Hypertension: Assessment and Plan: continue Coreg and lisinopril Qualifiers: Hypertension type: primary hypertension Qualified Code(s): I10 - Essential (primary) hypertension (8) Osteoarthritis: Qualifiers: Osteoarthritis location: spine Spinal osteoarthritis complication: with myelopathy Spinal region: lumbosacral Qualified Code(s): M47.16 - Other spondylosis with myelopathy, lumbar region (9) Diabetes: Assessment and Plan: placed on SSI, due to steroids patient's glucose is elevated today. Will stop steroids and place on NSAIDS (celebrex 100mg daily). I will also give her Sliding scale insulin to use as steroids are out of her system. Continue to check sugars with meals and night time. Qualifiers: Diabetes mellitus complication status: without complication Diabetes mellitus halfway insulin use: without halfway use Diabetes mellitus type: type 2 Qualified Code(s): E11.9 - Type 2 diabetes mellitus without complications (10) Yeast dermatitis: Assessment and Plan: will place on nystatin. (11) Overactive bladder: Assessment and Plan: Per patient this has been an ongoing problem and not an acute problem, she has been tried on several medications in the past but not sure what. I will place her on short course of oxybutynin to try. She should follow up with her PCP to discuss possible Myrbetriq or other medications if this does not work. UA was negative for infection Plan Patient is a full code continue Lovenox for DVT prophylaxis PT/OT evaluation, pain control. Patient is observation status and is not expected to cross 2 midnights Urinary Catheter Management Urinary Catheter Management Straight: Cath placed during this visit: yes Urethral indwelling: No Insertion date: 08/01/24 Insertion time: 15:46
--- NOTE | 2024-08-02 10:00 | CM.NOTE ---
Rounds made with Dr. Sherwood, discussed with pt discharge planning and need for f/u with pain management. Pt states she has appt scheduled for Aug 09. Pt will also need to f/u with PCP.
[2024-08-02 11:16] LABS: Glucometer 477 mg/dL (74-106)
--- NOTE | 2024-08-02 11:29 | SWNOTE1 ---
SW met with pt to discuss dc needs. Pt lives at home with her and dog. Pt uses her cane at home and plans to continue to use her cane. SW advised pt that Home Health is recommended so she can do some therapy at home and get stronger. At this time pt is refusing home health services. Pt voiced she will get around on her own and she is fine. SW advised pt that if she gets home and decides she wants HH, she can reach out to her PCP and they can set her up. Pt voiced understanding. No further needs at this time. SW to follow as needed.
--- NOTE | 2024-08-02 12:12 | CM.NOTE ---
Medicare Outpatient Observation Notice discussed with pt, pt verbalizes understanding and signs paper. Original given to pt and copy placed in pt's chart.
--- NOTE | 2024-08-02 13:54 | P.DS_ITS ---
DS: Providers Provider Date of admission: 08/01/24 18:25 Primary care physician: Non-Staff PhysicianMD Attending physician on admission: Koki Sherwood Consults: 08/01/24 17:35 Occupational Therapy Eval and Treat Routine Reason for consultation: bilateral lower ext weakness Has provider been notified: No Physical Therapy Eval and Treat Routine Reason for consultation: bilateral lower ext weakness Has provider been notified: No Attending physician on discharge: Koki Sherwood DS: Diagnosis Discharge Diagnosis (1) Bilateral leg paresthesia: (2) Arthritis of right hip: (3) Spinal stenosis of lumbar region at multiple levels: (4) Lumbar spondylosis: (5) Sacroiliac joint pain: (6) At high risk for falls: (7) Hypertension: Qualifiers: Hypertension type: primary hypertension Qualified Code(s): I10 - Essential (primary) hypertension (8) Osteoarthritis: Qualifiers: Osteoarthritis location: spine Spinal region: lumbosacral Spinal osteoarthritis complication: with myelopathy Qualified Code(s): M47.16 - Other spondylosis with myelopathy, lumbar region (9) Diabetes: Qualifiers: Diabetes mellitus type: type 2 Diabetes mellitus installation tech insulin use: without installation tech use Diabetes mellitus complication status: without complication Qualified Code(s): E11.9 - Type 2 diabetes mellitus without complications (10) Yeast dermatitis: (11) Overactive bladder: DS: Summary Hospital Course Hospital Course: see H&P dated 08/02/24, patient has close follow up Status at Discharge Functional status at discharge: uses cane/walker Overall status at discharge: patient is back to baseline Time Spent with Patient Time attestation: Total time spent providing and/or coordinating discharge services: Time spent: greater than 30 minutes Exam Narrative Exam Narrative: no changes from admission H&P Constitutional Vital Signs, click to edit/add: Last Vital Signs Temp 98.3 F 08/02/24 08:00 Pulse 80 08/02/24 08:00 Resp 18 08/02/24 08:00 BP 166/85 H 08/02/24 08:00 Pulse Ox 95 08/02/24 08:00 O2 Del Method Room Air 08/02/24 08:00 DS: Data Data Completed and Pending Labs on day of discharge: Labs from last 24 hours 10/28/24 10/28/24 10/28/24 11:14 07:51 05:09 WBC 7.9 RBC 4.36 Hgb 12.6 Hct 38.6 MCV 88.5 MCH 28.9 MCHC 32.6 RDW 13.1 Plt Count 254 MPV 10.2 Neut % (Auto) 82.1 H Lymph % (Auto) 15.9 L [place] % (Auto) 1.3 L Eos % (Auto) 0.0 L Baso % (Auto) 0.1 L Neut # (Auto) 6.5 Lymph # (Auto) 1.3 [place] # (Auto) 0.1 L Eos # (Auto) 0.0 Baso # (Auto) 0.0 Abs Immat Gran (auto) 0.05 H Imm/Tot Granulo (auto) 0.6 H ESR Sodium 139 Potassium 4.4 Chloride 104 Carbon Dioxide 25.8 Anion Gap 13.6 BUN 24.0 H Creatinine 0.87 Est GFR ( Amer) >60 Est GFR (Non-Af Amer) >60 BUN/Creatinine Ratio 27.6 Glucose 269 H Lactate Calcium 9.8 Magnesium 2.0 Total Bilirubin AST ALT Alkaline Phosphatase Total Creatine Kinase Myoglobin Troponin I High Sens C-Reactive Protein Total Protein Albumin Globulin Albumin/Globulin Ratio TSH 0.238 L Urine Color Urine Clarity Urine pH Ur Specific [place] Urine Protein Urine Glucose (UA) Urine Ketones Urine Occult Blood Urine Nitrite Urine Bilirubin Urine Urobilinogen Ur Leukocyte Esterase Urine RBC Urine WBC Ur Squamous Epith Cells Ur Transition Epith Cell Urine Crystals Urine Bacteria Urine Casts Urine Mucus Ur Culture Indicated? Stool Occult Blood POC Glucose 477 H 278 H 08/02/24 08/01/24 08/01/24 00:36 21:07 16:00 WBC 6.9 RBC 4.38 Hgb 12.6 Hct 38.7 MCV 88.4 MCH 28.8 MCHC 32.6 RDW 13.2 Plt Count 252 MPV 9.9 Neut % (Auto) 50.9 Lymph % (Auto) 36.2 [place] % (Auto) 10.0 Eos % (Auto) 2.0 Baso % (Auto) 0.6 Neut # (Auto) 3.5 Lymph # (Auto) 2.5 [place] # (Auto) 0.7 Eos # (Auto) 0.1 Baso # (Auto) 0.0 Abs Immat Gran (auto) 0.02 Imm/Tot Granulo (auto) 0.3 ESR 42 H Sodium 140 Potassium 4.4 Chloride 103 Carbon Dioxide 26.9 Anion Gap 14.5 BUN 21.0 H Creatinine 0.78 Est GFR ( Amer) >60 Est GFR (Non-Af Amer) >60 BUN/Creatinine Ratio 26.9 Glucose 141 H Lactate 1.3 Calcium 9.8 Magnesium Total Bilirubin 0.5 AST 25 ALT 34 Alkaline Phosphatase 83 Total Creatine Kinase 346 H* Myoglobin 113 H Troponin I High Sens 7.9 C-Reactive Protein 0.64 H Total Protein 7.7 Albumin 3.6 Globulin 4.1 Albumin/Globulin Ratio 0.9 TSH Urine Color Urine Clarity Urine pH Ur Specific [place] Urine Protein Urine Glucose (UA) Urine Ketones Urine Occult Blood Urine Nitrite Urine Bilirubin Urine Urobilinogen Ur Leukocyte Esterase Urine RBC Urine WBC Ur Squamous Epith Cells Ur Transition Epith Cell Urine Crystals Urine Bacteria Urine Casts Urine Mucus Ur Culture Indicated? Stool Occult Blood POC Glucose 344 H 408 H 08/01/24 08/01/24 15:36 15:35 WBC RBC Hgb Hct MCV MCH MCHC RDW Plt Count MPV Neut % (Auto) Lymph % (Auto) [place] % (Auto) Eos % (Auto) Baso % (Auto) Neut # (Auto) Lymph # (Auto) [place] # (Auto) Eos # (Auto) Baso # (Auto) Abs Immat Gran (auto) Imm/Tot Granulo (auto) ESR Sodium Potassium Chloride Carbon Dioxide Anion Gap BUN Creatinine Est GFR ( Amer) Est GFR (Non-Af Amer) BUN/Creatinine Ratio Glucose Lactate Calcium Magnesium Total Bilirubin AST ALT Alkaline Phosphatase Total Creatine Kinase Myoglobin Troponin I High Sens C-Reactive Protein Total Protein Albumin Globulin Albumin/Globulin Ratio TSH Urine Color Lt. yellow Urine Clarity Clear Urine pH 5.5 Ur Specific [place] 1.025 Urine Protein Negative Urine Glucose (UA) Negative Urine Ketones Negative Urine Occult Blood Large A Urine Nitrite Negative Urine Bilirubin Negative Urine Urobilinogen 0.2 Ur Leukocyte Esterase Negative Urine RBC 20-50 A Urine WBC 0-2 A Ur Squamous Epith Cells Few A Ur Transition Epith Cell Rare A Urine Crystals None seen Urine Bacteria Trace A Urine Casts None seen Urine Mucus Trace A Ur Culture Indicated? No Stool Occult Blood Negative POC Glucose Discharge Plan Discharge Disposition: Home, Self-Care Condition: Fair Discharge Medications: New insulin aspart U-100 [Novolog FlexPen U-100 Insulin] 100 unit/mL (3 mL) Insulin Pen 3 - 15 unit subcut ACHS 10 Days Qty: 15 0RF Rx Instructions: 141-200 mg/dl give 3 units/SQ 201-250 mg/dl give 5 units/SQ 251-300 mg/dl give 8 units/SQ 301-350 mg/dl give 12 units/SQ 351-400 mg/dl give 15 units/SQ greater than 400 mg/dl give 15 units/SQ and call practitioner nystatin [Nystop] 100,000 unit/gram Powder 1 applic topical BID 10 Days Qty: 15 0RF oxybutynin chloride 5 mg Tablet 5 mg PO QD 10 Days Qty: 10 0RF celecoxib [Celebrex] 100 mg capsule 100 mg PO DAILY 10 Days Qty: 10 0RF Continued metformin 500 mg tablet 500 mg PO BID lisinopril 40 mg tablet 40 mg PO DAILY carvedilol 25 mg tablet 25 mg PO BID Activity: ambulate only with your walker Diet: advance to your usual diet Print Language: Romanian Forms: Portal Instructions Follow Up Appointments: Aug.09 - pain management - procedure (Hospital will call with the time) [phone] @ 8:15am with [facility] [phone] @ 2:15pm with [facility] - procedure follow-up [phone]
[2024-08-02] MEDS: OXYBUTYNIN chloride 5 MG TABLET PO (14:47)
--- NOTE | 2024-08-03 14:56 | CM.DCFOLLOWU ---
Person spoke with:patient How are you feeling?well How is your pain? none Did you understand your discharge instructions?yes Do you have any questions about your discharge instructions?no Were you given any prescriptions at discharge?yes Were you able to get your prescriptions filled?yes Do you understand how to take your medications as ordered? Had questions in regards to Insulin. TIERNEY advised pt that SW will have case management call her back. Do you have any questions about your follow up appointment and do you plan to keep your follow up appointment? no questions, follow ups reviewed Is there anything else that you would like to discuss?no Questions/Comments/Concerns/Other:none
--- NOTE | 2024-08-03 16:03 | CM.NOTE ---
08/03/24 15:45 Called Negra to discuss her insulin questions. She stated she was unsure how to use the pens and put the needles on. I asked if she had them with her and I could try to explain. She said she was outside and couldn't get to them. She asked if she could come out to the hospital and have someone show her how to use the pen. I told her I would see what I could do and call her back. I spoke to Maude Dowling, Nurse on [facility] and she was willing to teach Negra if she comes to the hospital. 15:57 Called Negra back and told her she could come to the hospital and someone would show her how to use pens. She then informed me she has to wait until her comes home so he can bring her to the hospital. She wasn't sure when she would be here. She also said she may try to go to the community health services and they could possibly help her also. I told her I would leave her name at the [facility] nurse's station and explain what she was needing just in case she comes to the hospital.
--- NOTE | 2024-08-04 15:20 | SWNOTE1 ---
SW called pt again and spoke to . SW following up for second time in regards to her dc medication. She had questions about her insulin she was dc on and how to take it. Case management had called her back yesterday and she was going to stop out at the hospital or go to [facility]. Pt never stopped out at hospital, so SW followed up to make sure she went somewhere. Pt's confirmed that pt went to [facility].
== END 2024-08-02 15:30 | disposition home or self-care (01) ==
LOC: ER 17:25 → MS 18:30
PROVIDERS: Personal Emergency Response Attendant; Admitting Provider Family Medicine; Emergency Provider Emergency Medicine; Visit Provider Family Medicine
DX: M48.061 Spinal stenosis, lumbar region without neurogenic claudication (principal); M47.816 Spondylosis without myelopathy or radiculopathy, lumbar region; R20.2 Paresthesia of skin; M16.11 Unilateral primary osteoarthritis, right hip; M53.3 Sacrococcygeal disorders, not elsewhere classified; I10 Essential (primary) hypertension; M47.16 Other spondylosis with myelopathy, lumbar region; E11.9 Type 2 diabetes mellitus without complications; B37.2 Candidiasis of skin and nail; N32.81 Overactive bladder; Z79.84 Long term (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 hypoglycemic drugs; Z79.899 Other long term (current) drug therapy; Z91.81 History of falling; Z96.642 Presence of left artificial hip joint; Z96.653 Presence of artificial knee joint, bilateral
CPT/HCPCS: 36415; 70450; 71045; 72131; 73502; 80048; 80053; 81001; 82550; 82948; 83605; 83735; 83874; 84443; 84484; 85025; 85652; 86140; 93005; 96374; 96375; 96376; 97162; 97165; 99285; G0328; G0378; J1885; J2270; J2919

== ENCOUNTER 2024-08-09 09:34 | Day surgery (SDC) | payer MEDICARE, SELFPAY ==
[2024-08-09 10:24] VITALS: BP 156/97; PULSE 93; TEMP 36.4; O2SAT 97
[2024-08-09 10:32] LABS: Glucometer 134 mg/dL (74-106)
[2024-08-09 10:52] VITALS: BP 179/104; PULSE 96; O2SAT 98
[2024-08-09 10:53] VITALS: BP 182/106; PULSE 98; O2SAT 97
[2024-08-09] MEDS: IOHEXOL 240 MG/ML - 10 ML VIAL 24 MG INJ (10:57)
[2024-08-09] MEDS: LIDOCAINE HCL 2% 400 MG/20 ML MDV 4 ML INJ (10:57)
[2024-08-09] MEDS: BUPIVACAINE HCL 0.25% PF 25 MG/10 ML VIAL INJ (10:57)
[2024-08-09] MEDS: 0.9 % SODIUM CHLORIDE 10 ML SYRINGE - SALINE FLUSH INJ (10:57)
[2024-08-09] MEDS: TRIAMCINOLONE ACETONIDE 40 MG/ML VIAL 80 MG INJ (10:58)
--- NOTE | 2024-08-09 10:59 | W.PM.PROCNOT ---
Date of procedure: 08/09/24 Pre-op diagnosis: Pain due to lumbar stenosis with neurogenic claudication Post-op diagnosis: same as pre-op Procedure: Procedure: Bilateral L4-5 transforaminal epidural steroid injection Medications: Bupivacaine 0.25% 2cc, lidocaine 2% 1cc, kenalog 80mg The patient was seen and examined in the preoperative holding area.? Informed consent was obtained and placed on the chart.? Patient was brought to the medical procedure unit and placed in the prone position where a timeout was completed verifying the correct patient, procedure site, position, and planned special equipment using sterile aseptic technique.? Under direct fluoroscopic visualization a 25-gauge Quincke tipped spinal needle was advanced at level left L4-5 to the designated neural foramen where contrast dye was injected to show adequate spread.? There was no evidence of vascular or adverse uptake.? Epidural spread was appreciated.? The above-mentioned injectate was then placed in a 1.5 mL aliquot preceded by negative aspiration.? The needle was removed. The same procedure, at the same level, was completed on the opposite side. ? Patient was taken to the postprocedural recovery area and monitored for an appropriate length of time before found suitable for discharge in the accompaniment of a responsible adult. Anesthesia: Local Surgeon: Nolberto Lerma Pathology: none sent Condition: stable Disposition: no change
== END 2024-08-09 11:05 | disposition home or self-care (01) ==
PROVIDERS: Visit Provider Anesthesiology
DX: M48.062 Spinal stenosis, lumbar region with neurogenic claudication (principal); E11.9 Type 2 diabetes mellitus without complications; Z79.4 Long term (current) use of insulin; Z79.84 Long term (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 hypoglycemic drugs
CPT/HCPCS: 36415; 64483; 82948; J0665; J3301; Q9966

== ENCOUNTER 2024-08-18 14:01 | Outpatient (OUT) | payer MEDICARE, SELFPAY ==
--- NOTE | 2024-08-18 15:50 | PM.CN ---
Consult Note: HPI Data of Consult Patient: new to practice Consult date: 07/26/24 Requesting Physician: Makayla Zeng NP Primary Care Provider: Non-Staff Physician, MD Consult Narrative Reason for consult: low back, bilateral lower extremity pain Narrative: 74yof who presents for evaluation. longstanding low back and bilateral leg pain >5 years. mri reviewed, which is significant for multilevel severe stenosis throughout lumbar spine, as well as severe facet arthropathy at multiple levels. recently saw spine surgeon, who did not recommend immediate surgery at the time. has continued in a series of provider directed home exercises >6 weeks, without lasting benefit. uses tylenol and nsaids, but denies relief. denies adverse med side effects. recent bilateral L4-5 TFESI providing mild to no relief per pt. cc:: CC: Makayla Zeng NP [facility] Medical History (Updated 08/06/24 @ 00:01 by ) Hypertension ?I10 - Essential (primary) hypertension (ICD-10) Osteoarthritis ?M19.90 - Unspecified osteoarthritis, unspecified site (ICD-10) TMJ (dislocation of temporomandibular joint) ?S03.00XA - Dislocation of jaw, unspecified side, initial encounter (ICD-10) Diabetes ?E11.9 - Type 2 diabetes mellitus without complications (ICD-10) Surgical History History of hip replacement, total ?Z96.649 - Presence of unspecified artificial hip joint (ICD-10) History of knee replacement ?Z96.659 - Presence of unspecified artificial knee joint (ICD-10) Family History Father Family history of hypertension Mother Family history of hypertension Social History Within the past year, how often did you have a drink containing alcohol: never Score interpretation: A score less than 3 is consistent with normal alcohol consumption. Smoking status: Never smoker Non-prescribed substance use: denies use Previous occupational history: retired Highest level of school completed/degree received: 10th grade Are you now , , , , never or living with a partner: Little interest or pleasure in doing things: not at all Feeling down, depressed, or hopeless: not at all Feel stressed/tense/nervous/anxious/difficulty sleeping: not at all Meds Home Medications and Allergies Home Medications ?Medication ?Instructions ?Recorded ?Confirmed ?Type carvedilol 25 mg tablet 25 mg PO BID 10/31/23 08/09/24 History lisinopril 40 mg tablet 40 mg PO DAILY 10/31/23 08/09/24 History metformin 500 mg tablet 500 mg PO BID 10/31/23 08/09/24 History celecoxib 100 mg capsule (Celebrex) 100 mg PO DAILY 10 days #10 caps 08/02/24 08/09/24 Rx insulin aspart U-100 100 unit/mL 3 - 15 unit (0.03 - 0.15 mL) 08/02/24 08/09/24 Rx (3 mL) subcutaneous pen (Novolog subcut ACHS 10 days #15 mL FlexPen U-100 Insulin aspart) nystatin 100,000 unit/gram topical 1 applic topical BID 10 days #15 08/02/24 08/09/24 Rx powder (Nystop) grams oxybutynin chloride 5 mg tablet 5 mg PO QD 10 days #10 tabs 08/02/24 08/09/24 Rx Allergies Allergy/AdvReac Type Severity Reaction Status Date / Time honey Allergy Severe Swelling Verified 08/09/24 10:32 of Lip/Tongue/Throat Penicillins Allergy Severe Swelling Verified 08/09/24 10:32 of Lip/Tongue/Throat Exam Narrative Exam Narrative: Psych-alert and oriented x 3. Attentive and appropriate, constitutionally normal, displays normal mood and affect per situation. There are no obvious deficits in memory, reasoning, or intellect.? Skin-no obvious rashes, bruising, erythema noted to the patient's area of pain.? Extremities- extremities are warm with minimal edema and palpable pulses. Lumbar-tenderness to palpation noted in the lumbar spine and paraspinal musculature. Pain is elicited with flexion, extension, and lateral rotation of the lumbar spine. Range of motion is diminished with these motions. Facet loading maneuvers are positive.? Strength-noted to be unremarkable with the exception of decreased strength rated at 4 out of 5 in bilateral quadriceps femoris, anterior tibialis. Sensory-no notable sensory deficits in the bilateral lower extremities to touch or pinprick in all dermatomal distributions with the exception to decreased sensation to the bilateral L4, 5 dermatomal distribution Sacroiliac - tender to palpation in bilateral psis. positive alexis's bilaterally. positive thigh thrust bilaterally. Coordination remains intact.? Gait remains non-antalgic. Assessment and Plan Assessment and Plan (1) Lumbar stenosis with neurogenic claudication: (2) Sacroiliac joint pain: (3) Lumbar spondylosis: Plan 74yof who presents for evaluation. failed conservative measures, as noted. imaging reviewed, as noted. given symptoms and imaging, proceed with bilateral sij injection. restart gabapentin 300mg TID, will increase next visit if tolerating well but not finding significant benefit. continue HEP as tolerated. f/u 1-2 weeks after injection.
== END 2024-08-18 14:02 | disposition home or self-care (01) ==
LOC: PM 14:01
PROVIDERS: Visit Provider Nurse Practitioner
DX: M48.062 Spinal stenosis, lumbar region with neurogenic claudication (principal); M47.816 Spondylosis without myelopathy or radiculopathy, lumbar region; M53.3 Sacrococcygeal disorders, not elsewhere classified
CPT/HCPCS: G0463

== ENCOUNTER 2024-10-04 10:02 | Day surgery (SDC) | payer MEDICARE, SELFPAY ==
[2024-10-04 10:43] VITALS: BP 150/92; PULSE 100; TEMP 36.3; O2SAT 96
[2024-10-04 10:51] LABS: Glucometer 140 mg/dL (74-106)
[2024-10-04 11:30] VITALS: BP 164/93; BP 180/97; PULSE 100; PULSE 97; O2SAT 95; O2SAT 96
[2024-10-04] MEDS: BUPIVACAINE HCL 0.25% PF 25 MG/10 ML VIAL 4 ML INJ (11:33)
[2024-10-04] MEDS: IOHEXOL 240 MG/ML - 10 ML VIAL 24 MG INJ (11:33)
[2024-10-04] MEDS: METHYLPREDNISOLONE ACETATE 40 MG/ML VIAL 80 MG INJ (11:34)
[2024-10-04] MEDS: LIDOCAINE HCL 2% 400 MG/20 ML MDV INJ (11:34)
--- NOTE | 2024-10-04 11:35 | W.PM.PROCNOT ---
Date of procedure: 10/04/24 Pre-op diagnosis: Pain due to lumbar stenosis with neurogenic claudication Post-op diagnosis: same as pre-op Procedure: Procedure: Left L4-5, L5-S1 transforaminal epidural steroid injection Medications: Bupivacaine 0.25% 3cc, depomedrol 40mg x2 After informed consent was obtained, the patient was brought to the medical procedure unit and placed in the prone position, when a timeout was completed verifying correct patient, procedure, site, positioning, implant, and/or special equipment.? The skin overlying the area was prepped and draped in standard sterile fashion using alcohol.? A 25-gauge needle was inserted towards the left sacroiliac joint under direct fluoroscopic imaging.? Needle tip was advanced until the joint was encountered.? We instilled a total of 2 mL of solution.? The same procedure was then completed on the right side.? Postoperatively needles were removed.? The patient tolerated the procedure well without complication.? The patient reported reduction in pain symptoms postoperatively. Anesthesia: Local Surgeon: Nolberto Lerma Pathology: none sent Condition: stable Disposition: no change
--- NOTE | 2024-11-08 07:40 | P.ON_ITS ---
Date of procedure: 10/04/24
--- NOTE | 2024-11-08 07:40 | W.PM.PROCNOT ---
Date of procedure: 10/04/24
== END 2024-10-04 11:40 | disposition home or self-care (01) ==
LOC: SURGOUT 10:03
PROVIDERS: Visit Provider Anesthesiology
DX: M46.1 Sacroiliitis, not elsewhere classified (principal); E11.9 Type 2 diabetes mellitus without complications; Z79.84 Long term (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 hypoglycemic drugs; Z79.85 Long-term (current) use of injectable non-insulin antidiabetic drugs
CPT/HCPCS: 36415; 64451; 82948; J0665; J1010; Q9966

== ENCOUNTER 2025-07-03 13:24 | Emergency (ER) | payer MEDICARE, SELFPAY ==
--- OUTSIDE RECORDS SUMMARY | 2025-06-20 14:19 | XMS_ITS ---
Author Organization OHIP Support Name Relationship Address Phone MACIEL COELLO Spouse [address] [facility] [place] [address] + MACIEL COELLO Spouse [address] [facility] [place] [address] + OUMOU, EDCLAUDIA Spouse [address] [facility] [place] [address] + OUMOU, EDCLAUDIA Spouse [address] [facility] [place] [address] + OUMOU, MACIEL Spouse [address] [facility] [place] [address] + OUMOU EDCLAUDIA Spouse [address] [facility] [place] [address] + OUMOU, EDCLAUDIA Spouse [address] [facility] [place] [address] + Oumuo, Edclaudia Spouse [address] [place] [facility] [place] [address] + Tawny Alcantara Child Unknown +[phone] Oumou, Edclaudia Spouse [address] [place] [facility] [place] [address] + Karla Alcantarat Child Unknown +[phone] Oumou, Edclaudia Spouse [address] [place] [facility] [place] [address] + Karla Alcantarat Child Unknown +[phone] OUMOU, EDCLAUDIA Spouse [address] [facility] [place] [address] + Oumou, Edclaudia Spouse [address] [place] [facility] [place] [address] + Karla Alcantarat Child Unknown [phone] OUMOU, EDCLAUDIA Spouse [address] [facility] [place] [address] + OUMOU, EDWARD Spouse [address] [place] [address] + OUMOU, EDWARD Spouse [address] [place] [address] + OUMOU, EDWARD Spouse [address] [place] [address] + KARLA MUSAT Unknown Unknown Unavailabl e OUMOU, EDWARD Spouse [address] [place] [address] + MAREN MUSAARET Unknown Unknown Unavailabl e OUMOU, EDWARD Spouse [address] [place] [address] + MAREN MUSAARET Unknown Unknown Unavailabl e OUMOU, EDWARD Spouse [address] [place] [address] + MAREN MUSAARET Unknown Unknown Unavailabl e OUMOU, EDWARD Spouse [address] [place] [address] + KARLA MUSAT Unknown Unknown Unavailabl e Oumou, Edward Spouse [address] [place] [address] + Tawny Alcantara Unknown Unknown +[phone] OUMOU, EDWARD Spouse [address] [place] [address] + KARLA MUSAT Unknown Unknown Unavailabl e OUMOU, EDWARD Spouse [address] [place] [address] + MUSAMARENTAWNY Unknown Unknown Unavailabl e OUMOU, EDWARD Spouse [address] [place] [address] + MUSAMARENTAWNY Unknown Unknown Unavailabl e OUMOU, EDWARD Spouse [address] [place] [address] + MUSAMARENTAWNY Unknown Unknown Unavailabl e OUMOU, EDWARD Spouse [address] [place] [address] + MUSAMARENTAWNY Unknown Unknown Unavailabl e OUMOU, EDWARD Spouse [address] [place] [address] + MUSAMARENTAWNY Unknown Unknown Unavailabl e OUMOU, EDWARD Spouse [address] [place] [address] + KARLA MUSAT Unknown Unknown Unavailabl e OUMOU, EDWARD Spouse [address] [facility] [place] [address] + KARLA MUSAT Unknown Unknown Unavailabl e Oumou, Edward Spouse [address] [place] [address] + Karla Alcantarat Unknown Unknown +[phone] OUMOU, EDWARD Spouse [address] [facility] [place] [address] + KARLA MUSAT Unknown Unknown Unavailabl e OUMOU, EDWARD Spouse [address] [facility] [place] [address] + KARLA MUSAT Unknown Unknown Unavailabl e OUMOU, EDWARD Spouse [address] [facility] [place] [place] [address] + KARLA MUSAT Unknown Unknown Unavailabl e OUMOU, EDWARD Spouse [address] [facility] [place] [address] + KARLA MUSAT Unknown Unknown Unavailabl e Oumou, Edward Spouse [address] [place] [facility] [place] [place] [address] + Tawny Alcantara Unknown Unknown +[phone] OUMOU, EDWARD Spouse [address] [facility] [place] [address] + KARLA MUSAT Unknown Unknown Unavailabl e OUMOU, EDWARD Spouse [address] [facility] [place] [address] + KARLA MUSAT Unknown Unknown Unavailabl e OUMOU, EDWARD Spouse [address] [facility] [place] [address] + KARLA MUSAT Unknown Unknown Unavailabl e OUMOU, EDWARD Spouse [address] [facility] [place] [address] + KARLA MUSAT Unknown Unknown Unavailabl e Care Team Providers Care Behavioral Consultant Name Role Phone OLEG FERNANDES Referring Unavailable SERVICES, [facility] Primary Care Unava ilable OLEG FERNANDES Referring Unavailable SERVICES, [facility] Primary Care Unava ilable SERVICES, [facility] Primary Care Unava ilable COLUMBA NOLAN Attending Unavailable SERVICES, [facility] Primary Care Unava ilable JOSE MARIA MCFARLANE Attending Unavailable UDO-INYANG JR, INYANG Referring Unavailabl e SERVICES, [facility] Primary Care Unava ilable UDO-INYANG JR, INYANG Referring Unavailabl e SERVICES, [facility] Primary Care Unava ilable UDO-INYANG JR, INYANG Referring Unavailabl e SERVICES, [facility] Primary Care Unava ilable MICKEY RAY Attending Unavailable MICKEY RAY Referring Unavailable SERVICES, [facility] Primary Care Unava ilable DOMENICA REDDY Attending Unavailable SERVICES, [facility] Primary Care Unava ilable CARMELA, JUAN E Referring Unavailable SERVICES, [facility] Primary Care Unava ilable CARMELA, JUAN E Referring Unavailable SERVICES, [facility] Primary Care Unava ilable CARMELA, JUAN E Referring Unavailable SERVICES, [facility] Primary Care Unava ilable BINDU PARISH Attending Unavailable SERVICES, [facility] Primary Care Unava ilable SERVICES, [facility] Primary Care Unava ilable SERVICES, [facility] Primary Care Unava ilable NEVIN EDWARDS Referring Unavailable SERVICES, [facility] Primary Care Unava ilable NALDO, PEACE Referring Unavailable SERVICES, [facility] Primary Care Unava ilable SERVICES, [facility] Primary Care Unava ilable SAMANTHA CERDA Attending Unavailable JOHN, MOHAMMED Attending Unavailable SERVICES, [facility] Primary Care Unava ilable JOHN, MOHAMMED Referring Unavailable SERVICES, [facility] Primary Care Unava ilable SERVICES, [facility] Primary Care Unava ilable MELECIO PIÑA Attending Unavailable SERVICES, [facility] Primary Care Unava ilable VEENA MCCOY Attending Unavailable JOHN, MOHAMMED Referring Unavailable SERVICES, [facility] Primary Care Unava ilable SERVICES, [facility] Primary Care Unava ilable DHARA SNELL Attending Unavailable SERVICES, [facility] Primary Care Unava ilable SERVICES, [facility] Primary Care Unava ilable SERVICES, [facility] Primary Care Unava ilable DHAAR SNELL Attending Unavailable NALDO, PEACE Referring Unavailable SERVICES, [facility] Primary Care Unava ilable NALDO, PEACE Referring Unavailable SERVICES, [facility] Primary Care Unava ilable NALDO, PEACE Referring Unavailable SERVICES, [facility] Primary Care Unava ilable CARMELA, JUAN E Referring Unavailable SERVICES, [facility] Primary Care Unava ilable SERVICES, [facility] Primary Care Unava ilable Maria Guadalupe ARORA, Nolberto Eldridge Attending Unavailable Maria Guadalupe ARORA, Nolberto Eldridge Attending Unavailable Carmela ARORA, Juan Jimenes Attending Unavail able Carmela ARORA, Juan Jimenes Attending Unavail able Carmela ARORA, Juan Jalil Attending Unavail able Carmela ARORA, Juan Jalil Attending Unavail able Thomas Rosales DO Unavailable Carmela ARORA, Juan Jimenes Admitting Unavail able Maria Guadalupe ARORA, Nolberto Eldridge Attending Unavailable RUMSCHLAG, GISSEL Primary Care Unavailable CARMELA, JUAN E Attending Unavailable CARMELA, JUAN E Admitting Unavailable RUMSCHLAG, GISSEL Primary Care Unavailable DON ALLAN Attending Unavailable RUMSCHLAG, GISSEL Primary Care Unavailable NEVIN EDWARDS Referring Unavailable DEL FOY Referring Unavailable RUMSCHLAG, GISSEL Primary Care Unavailable RUMSCHLAG, GISSEL Primary Care Unavailable NEVIN EDWARDS Referring Unavailable CARMELAJUAN DOLAN Attending Unavailable CARMELA, JUAN Wills Admitting Unavailable Purpose PROBLEMS DATE TYPE CONDITION / CODE ATTENDING STATUS [facility] 06/20/2025 Unknown Pain in left kne e / M25.562(ICD-10) [facility] 05/02/2025 Unknown Pain in left hip / M25.552(ICD-10) [facility] 03/24/2025 Unknown Tremor, unspecif ied / R25.1(ICD-10) [facility] 03/17/2025 Unknown Encounter for screening for cardiovascular disorders / Z13.6(ICD-10) [facility] 02/24/2025 Unknown Other specified disorders of ear, bilateral / H93.8X3(ICD-10) DHARA SNELL [facility] 02/24/2025 Unknown Ear Fullness / FREETEXT(AOF) DHARA SNELL [facility] 01/31/2025 Unknown Chills (without fever) / R68.83(ICD-10) [facility] 01/31/2025 Unknown Chills / FREETEXT(AOF) [facility] 12/14/2024 Unknown Subacute cough / R05.2(ICD-10) [facility] 12/14/2024 Unknown Ear Problem / FREETEXT(AOF) [facility] 11/29/2024 Unknown Pain in right kn ee / M25.561(ICD-10) CHANNING DHARA Mchugh [facility] 11/29/2024 Unknown Knee Pain / FREETEXT(AOF) DHARA SNELL [facility] 11/12/2024 Unknown Pain in right th igh / M79.651(ICD-10) LINAVEENA LENTZ [facility] 11/06/2024 Unknown Corns and callosities / L84(ICD-10) W[facility] 11/06/2024 Unknown Polyneuropathy, unspecified / G62.9(ICD-10) [facility] 11/06/2024 Unknown Personal history of other endocrine, nutritional and metabolic disease / Z86.39(ICD-10) [facility] 11/06/2024 Unknown Other symptoms a nd signs involving emotional state / R45.89(ICD-10) [facility] 11/06/2024 Unknown Wound Check / FREETEXT(AOF) [facility], unspecified / [facility]78.5([facility]-10[facility] Tachycardia, unspecified / R00.0(ICD-10) [facility] 10/30/2024 Unknown Palpitations / R00.2(ICD-10) SAMANTHA CERDA [facility] 10/30/2024 Unknown Chest pain, unspecified / R07.9(ICD-10) SAMANTHA CERDA [facility] 10/30/2024 Unknown Chest Pain / FREETEXT(AOF) SAMANTHA CERDA [facility] 10/25/2024 Admitting diagnosis Unilateral primary osteoarthritis, right hip / M16.11(ICD-10) JUAN [facility] 09/30/2024 Unknown Encounter for screening mammogram for malignant neoplasm of breast / Z12.31(ICD-10) [facility] 09/19/2024 Unknown Acute cough / R05.1(ICD-10) [facility] 09/19/2024 Unknown Cough / FREETEXT(AOF) [facility] 09/01/2024 Unknown Acute sinusitis, unspecified / J01.90(ICD-10) [facility] 09/01/2024 Unknown Other specified bacterial agents as the cause of diseases classified elsewhere / B96.89(ICD-10) [facility] 09/01/2024 Unknown Nasal Congestion / FREETEXT(AOF) [facility] 08/26/2024 Unknown Encounter for preprocedural cardiovascular examination / Z01.810(ICD-10) МАРИНА BINDU L [facility] 12/02/2023 Unknown Essential (prima ry) hypertension / I10(ICD-10) МАРИНА BINDU Dontae [facility] 06/09/2018 Unknown Mixed hyperlipid emia / E78.2(ICD-10) МАРИНА BINDU L [facility] 08/26/2024 Unknown Pre-op Exam / FREETEXT(AOF) МАРИНА BINDU L [facility] 08/19/2024 Unknown Encounter for gynecological examination (general) (routine) without abnormal findings / Z01.419(ICD-10) [facility] 08/17/2024 Unknown Presence of righ t artificial knee joint / Z96.651(ICD-10) [facility] 08/10/2024 Unknown Mixed incontinen ce / N39.46(ICD-10) DOMENICA REDDY [facility] 08/10/2024 Unknown Urinary Incontin ence / FREETEXT(AOF) DOMENICA REDDY [facility] 07/27/2024 Unknown Encounter for ot her preprocedural examination / Z01.818(ICD-10) [facility] 07/27/2024 Unknown Ventral hernia without obstruction or gangrene / K43.9(ICD-10) MICKEY RAY [facility] 07/27/2024 Unknown 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 / Z22.322(ICD-10) [facility] 07/18/2024 Unknown Encounter for screening, unspecified / Z13.9(ICD-10) JOSE MARIA MCFARLANE [facility] 07/18/2024 Unknown Leg Pain / FREETEXT(AOF) JOSE MARIA MCFARLANE [facility] 07/11/2024 Unknown Low back pain, unspecified / M54.50(ICD-10) COLUMBA NOLAN [facility] 07/11/2024 Unknown Other chronic pa in / G89.29(ICD-10) COLUMBA NOLAN [facility] 07/11/2024 Unknown Other fecal abnormalities / R19.5(ICD-10) COLUMBA NOLAN [facility] 07/11/2024 Unknown Abdominal Pain / FREETEXT(AOF) COLUMBA NOLAN [facility] 07/11/2024 Unknown Black or Bloody Stool / FREETEXT(AOF) COLUMBA NOLAN [facility] 07/11/2024 Unknown Abdominal Pain; Black or Bloody Stool / UNK(Unknown) COLUMBA NOLAN [facility] 07/09/2024 Unknown Asymptomatic menopausal state / Z78.0(ICD-10) [facility] 07/09/2024 Unknown Spondylolisthesi s, 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) [facility] 07/09/2024 Unknown Other interverte bral disc degeneration, lumbar region without mention of lumbar back pain or lower extremity pain / M51.369(ICD-10) NA [facility] 07/09/2024 Unknown Spondylosis with out myelopathy or radiculopathy, lumbar region / M47.816(ICD-10) [facility] 07/09/2024 Unknown Spinal stenosis, lumbar region without neurogenic claudication / M48.061(ICD-10) [facility] 07/09/2024 Unknown Cauda equina syndrome / G83.4(ICD-10) [facility] PROCEDURES No Procedure Records Found VITAL SIGNS No Vital Signs Records Found RESULTS XR KNEE LT 3 VWS Observed: 06/20/2025 12:49 PM Status: COMPLETED Source: [facility] XR KNEE LT 3 VWS HISTORY: A 75-year-old female with a history of fall 4 weeks ago. Complaining of the pain and swelling in the left knee. TECHNIQUE: Left knee: 3 views COMPARISON: Comparison is made with the left knee radiographs of the 2024. FINDINGS: There is a total left knee replacement. Metallic prosthesis is in satisfactory position. No hardware complications are seen. There is no evidence of recent fracture or acute bony pathology. There is no evidence of joint effusion. There are arterial calcifications. IMPRESSION: * Status post total left knee replacement with postsurgical change. * No evidence of recent fracture, joint effusion or acute bony pathology. Finalized by Jair Sparks MD on 06/20/2025 1:05 PM MR HIP LT WO CONT Observed: 05/02/2025 12:35 PM Status: COMPLETED Source: [facility] MR HIP LT WO CONT Pain and weakness for one year. Trauma 1 week ago PROCEDURE: Multiplanar multisequence images performed through the left hip compared to April 15, 2018 Findings/Impression: * There are bilateral hip prostheses which obscure the hips * Grossly the imaged portions the bony pelvis and showing no acute findings * There is edema within the left gluteal muscle consistent with a traumatic muscle strain involving the gluteus medius insertion resulting in a traumatic left greater trochanter bursitis Finalized by Tato Villanueva MD on 05/05/2025 7:[address] BRAIN W CONT Observed: 03/24/2025 12:59 PM Status: COMPLETED Source: [facility] CT BRAIN W CONT CT BRAIN W CONT, 03/24/2025 12:59 PM INDICATION: Shakiness TECHNIQUE: CT of the head performed following the uneventful administration of 100 mL Omnipaque 300 intravenous contrast. Sagittal and coronal reformats created and reviewed in brain, bone, and soft tissue windows. COMPARISON: None. FINDINGS: No enhancing lesions. No acute intracranial hemorrhage within the limits of contrast enhanced exam. Ramirez-white differentiation is preserved. The ventricular system is normal in size and morphology. No abnormal extra-axial fluid collections or midline shift of structures. No depressed or displaced calvarial fracture. Partially empty sella. Volume loss and white matter low attenuation likely sequela of chronic microangiopathic disease. Visualized paranasal sinuses and temporal bone structures are well-aerated. Orbits appear intact. IMPRESSION: 1. No acute intracranial hemorrhage. No large evolving territorial infarct. 2. Please note noncontrast CT is more sensitive for evaluation of intracranial hemorrhage. Finalized by Wild Naranjo MD on 03/28/2025 10:24 AM XR KNEE LT MIN 4 VWS Observed: 12:42 PM Status: COMPLETED Source: [facility] XR KNEE LT MIN 4 VWS XR KNEE LT MIN 4 VWS: 03/24/2025 12:42 PM Clinical: Chronic knee pain EXAM: LEFT KNEE RADIOGRAPHS Comparison: 03/23/2022 Views: 4 Findings: There is no acute fracture, dislocation, or destructive lesion. Stable arthroplasty. Vascular calcifications. Impression: * No acute findings. Stable exam. Finalized by Ari Siegel MD on 03/26/2025 1:27 PM XR KNEE RT MIN 4 VWS Observed: 12:42 PM Status: COMPLETED Source: [facility] XR KNEE RT MIN 4 VWS XR KNEE RT MIN 4 VWS: 03/24/2025 12:42 PM Clinical: Chronic knee pain EXAM: RIGHT KNEE RADIOGRAPHS Comparison: 11/29/2024 Views: 4 Findings: There is no acute fracture, dislocation, or destructive lesion. Stable arthroplasty. Vascular calcifications. Impression: * No acute findings. Stable exam. Finalized by Ari Siegel MD on 03/26/2025 1:29 PM BASIC METABOLIC PANEL Collected: 2024 11:25 AM Status: COMPLETED Source: [facility] TYPE CODE TESTS RESULT OUT OF RANGE REFERENCE UNITS LAB NA SODIUM 136 134-146 mmol/L LAB K POTASSIUM 4.7 3.5-5.0 mmol/L LAB CL CHLORIDE 103 98-109 mmol/L LAB CO2 CARBON DIOXIDE 25 22-32 mmol/L LAB AGAP ANION GAP 8 5-15 mmol/L LAB BUN BLOOD UREA NITROGEN 24 5-27 mg/dL LAB CRET CREATININE 0.67 0.40-1.00 mg/dL Result Comment: METHOD TRACE ABLE TO IDMS STANDARD LAB GLU GLUCOSE 163 High 65-99 mg/dL LAB CA CALCIUM 10.1 8.5-10.5 mg/dL LAB EGFR EGFR (CKD-EPI) NON-RACE DEPENDENT >^90 >=60 ml/min/1. 73sq.m Result Comment: Reported eGF R is based on the CKD-EPI 2020 equation that does not use a race coefficient. Performed By: #### BMP #### [facility] ([facility]) [address] [place] [address] VIR CBC WITH AUTO DIFFERENTIAL Collected: 0 01/31/2025 9:13 PM Status: COMPLETED Source: [facility] TYPE CODE TESTS RESULT OUT OF RANGE REFERENCE UNITS LAB WBC WBC 5.5 4-11 x10E9/L LAB RBC RBC COUNT 3.81 3.8-5.2 X10E12/L LAB HGB HEMOGLOBIN 10.9 Low 11.7-15.5 g/dL LAB HCT HEMATOCRIT 33.4 Low 35-47 % LAB MCV MCV 88 80-100 fL LAB MCH MCH 28.6 27-34 pg LAB MCHC MCHC 32.7 32-36 g/dL LAB RDW RDW 15.2 High 11.5-15 % LAB PLTC PLATELET COUNT 278 150-450 X10E9/L LAB MPV MPV 8.1 7-12 fL LAB NEUT NEUTROPHILS RELATIVE PERCENT BY AUTOMATED COUNT 45.0 % LAB LYMP LYMPHOCYTES RELATIVE PERCENT BY AUTOMATED COUNT 36.8 % LAB MONO MONOCYTES RELATIVE PERCENT BY AUTOMATED COUNT 13.3 % LAB EOS EOSINOPHILS RELATIVE PERCENT BY AUTOMATED COUNT 4.1 % LAB BASO BASOPHILS RELATIVE PERCENT BY AUTOMATED COUNT 0.8 % LAB ANEUT NEUTROPHILS ABSOLUTE COUNT BY AUTOMATED COUNT 2.5 10*3/uL LAB ALYMP LYMPHOCYTES ABSOLUTE COUNT (10*3/UL) BY AUTOMATED COUNT 2.0 10*3/uL LAB AMONO MONOCYTES ABSOLUTE COUNT (10*3/UL) BY AUTOMATED COUNT 0.7 10*3/uL LAB AEOS EOSINOPHILS ABSOLUTE COUNT (10*3/UL) BY AUTOMATED COUNT 0.2 10*3/uL LAB ABASO BASOPHILS ABSOLUTE COUNT (10*3/UL) BY AUTOMATED COUNT 0.0 10*3/uL LAB DTYPE CELLAVISION DIFFERENTIAL TYPE AUTOMATED DIFFERENTIAL Performed By: #### CBCA #### [facility] ([facility]) [address] [place] [address] COMPREHENSIVE METABOLIC PANEL Collected: 2024 9:13 PM Status: COMPLETED Source: [facility] TYPE CODE TESTS RESULT OUT OF RANGE REFERENCE UNITS LAB NA SODIUM 135 134-146 mmol/L LAB K POTASSIUM 4.5 3.5-5.0 mmol/L LAB CL CHLORIDE 105 98-109 mmol/L LAB CO2 CARBON DIOXIDE 23 22-32 mmol/L LAB AGAP ANION GAP 7 5-15 mmol/L LAB BUN BLOOD UREA NITROGEN 22 5-27 mg/dL LAB CRET CREATININE 0.68 0.40-1.00 mg/dL Result Comment: METHOD TRACE ABLE TO IDMS STANDARD LAB GLU GLUCOSE 273 High 65-99 mg/dL LAB CA CALCIUM 9.7 8.5-10.5 mg/dL LAB TP TOTAL PROTEIN 7.4 6.0-8.0 g/dL LAB ALB ALBUMIN 3.7 3.2-5.3 g/dL LAB ALK ALKALINE PHOSPHATASE 98 39-130 U/L LAB AST AST 21 <=41 U/L LAB ALT ALT 16 <=31 U/L LAB TBIL BILIRUBIN,TOTAL 0.4 0.3-1.2 mg/dL LAB EGFR EGFR (CKD-EPI) NON-RACE DEPENDENT >^90 >=60 ml/min/1 .73sq.m Result Comment: eGFR not rep orted due to non-numeric value for Creatinine. Reported eGFR is based on the CKD-EPI 2020 equation that does not use a race coefficient. Performed By: #### CMP #### [facility] ([facility]) [address] [place] [address]. [place] [address] VIR THYROID PROFILE INCLUDES TSH FT4 Collected: 01/31/2025 9:13 PM Status: COMPLETED Source: [facility] TYPE CODE TESTS RESULT OUT OF RANGE REFERENCE UNITS LAB FT4 FREE T4 0.90 0.61-1.60 ng/dL LAB TSH TSH 0.91 0.49-4.67 uIU/mL Performed By: #### THYR #### [facility] ([facility]) [address] [place] [id number] VIR ER EXTRA URINE Collected: 01/31/2025 9:00 PM Status: X Source: [facility] Order Comment: A extra urine specimen no testing is needed TYPE CODE TESTS RESULT OUT OF RANGE REFERENCE UNITS LAB ERU(LOINC) ER EXTRA URINE ERU ER EXTRA URINE Cancelled SARS/FLU A+B/RSV BY NAAT/MOLECULAR (M4RT COLLECTION TUBE) Observed: 01/31/2025 8:04 PM Status: COMPLETED Source: [facility] Order Comment: The Xpert Xpr ess SARS-CoV-2/Flu/RSV Plus test is a rapid, multiplexed real-time RT-PCR test intended for the simultaneous qualitative detection and differentiation of SARS-CoV-2, influenza A, influenza B and respiratory syncytial virus (RSV) viral RNA from individuals suspected of respiratory viral infection consistent with COVID-19 by Their healthcare provider. This test has not been validated in asymptomatic patients. The Xpert Xpress SARS-CoV-2 test is intended for use by qualified and trained operators who are performing tests using either [employer] or [employer] systems and is limited to laboratories that [...] acute phase of infection. Positive results are Indicative of the presence of the identified virus, [...] information. An Invalid result may occur with specimen-associated inhibition unable to be resolved with specimen repeat. Fact Sheet for Healthcare Providers: https://www.fda.gov/media/478766/download Fact Sheet for Patients: https://www.fda.gov/media/226106/download FLU A PCR Negative FLU B PCR Negative RSV BY PCR Negative SARS COV 2 BY PCR Not Detected Performed By: #### COVFLR ## ## [facility] ([facility]) [address] [place] [address]. [place] [address] VIR INPATIENT CLINICAL SUMMARY Observed: 1:29 PM Status: CANCELED Source: [facility] [address] [place] [address] [phone] [address] [phone] Clinical Summary Person Information Name: Mari Jamison Age: 74 Years : 1950 Sex: Female PCP: Marital Status: PCP: Race: White Ethnicity: Not or Language: Greek Visit Id: Visit Reason: Speciality: Acuity: Enc Type: Observation Med Service: Medicine-General Arrival: 12/29/2024 06:01:58 Discharge: Dispo Type: Address: [address] [place] [phone] Preferred Communication Mode: Verbal Preferred Language: Greek Discharge Diagnosis: S/P total right hip arthroplasty Discharged To: Home with family care Mode of Discharge Transportation: Home Treatments: Devices/Equipment: Professional Skilled Services: Special Services and Community Resources: Discharge Orders: Tube Feeding and Supplements Home Health Consult and Ambulatory Referrals Treatment and Wound Care Coughing/Deep Breathing 12/29/24 14:32:00 EDT, q1hr, Nursing to encourage Q1 hour while awake Insulin Safety Bandera 12/29/24 18:28:00 EDT, PRN, 1 each insulin administration Neurovascular Assessment Lower Extremity 12/29/24 14:32:00 EDT, q4hr for 48 hr, Stop date 12/31/24 14:59:00 EDT Neurovascular Assessment Lower Extremity 12/31/24 14:32:00 EDT, q4hr Skin Care: Skin Integrity: Intact Skin Abnormalities: Bruising Lines/Devices/BM Information: Urinary Catheter Type: Urinary Catheter Size: Urinary Catheter Activity Date: Pre-insertion Indwelling Catheter Education: Ostomy Type: GI Tube Type: GI Tube Size: GI Tube Activity Date: Date of Last Bowel Movement: 12/28/24 Functional Status: Sensory Deficits: None Valuables/Belongings: Glasses, Clothes, Jewelry, Electronics, Wallet/Purse/Money History of Falls Within 6 Months: Yes High Fall Risk Interventions: All low and moderate risk fall interventions, Red high fall risk indicated outside patient room, Yellow gown and red nonskid socks, Bed/chair alarm activated, Best/Direct visual access used, Remain with patient during toileting, Patient transported wit... Activities of Daily Living: ADLs: Minimal assistance Bathing ADL: Requires assistance (1) Dressing ADL: Requires assistance (1) Personal Care Provided: Assisted with gown, Back rub, Brief changed, Chux pad changed, Hair care, Linens changed, Oral care, Zulema care Bed Mobility Assistance: Independent Ambulation Assistance: One person assistance Musculoskeletal Abnormality: Gait: Slow, Stiff Assistive Devices: Gait belt, Walker Special Orthopedic Devices: Current Level of Assistance for Self Care/Mobility: Cognitive Status: Orientation Assessment: Oriented x 4 Level of Consciousness: Alert Characteristics of Speech: Clear Aspiration Risk: None Affect/Behavior: Appropriate, Calm, Cooperative Smoking Status Never (less than 100 in lifetime) Laboratory or Other Results This Visit (last charted value for your 12/29/2024 visit) Hematology 12/30/2024 9:36 AM Hct: 26.8 % -- Normal range between ( 36.0 and 46.0 ) Hgb: 8.9 g/dL -- Normal range between ( 12.0 and 16.0 ) Chemistry 12/30/2024 9:36 AM Creatinine Lvl: 0.71 mg/dL -- Normal range between ( 0.44 and 1.03 ) BUN: 26 mg/dL -- Normal range between ( 8 and 26 ) Glucose Lvl: 366 mg/dL -- Normal range between ( 70 and 99 ) Potassium Lvl: 3.8 mmol/L -- Normal range between ( 3.4 and 4.8 ) Sodium Lvl: 134 mmol/L -- Normal range between ( 133 and 142 ) Hgb A1c: 7.7 % A1c -- Normal range between ( 4.0 and 5.6 ) Calcium Lvl: 8.4 mg/dL -- Normal range between ( 8.5 and 10.3 ) Chloride: 104 mmol/L -- Normal range between ( 98 and 110 ) CO2: 22 mmol/L -- Normal range between ( 22 and 32 ) Anion Gap: 8 -- Normal range between ( 4 and 12 ) Estimated GFR: >60 mL/min/1.73m? eAvg Glucose: 174 mg/dL -- Normal range between ( 68 and 114 ) BUN Crea Ratio: 36.6 -- Normal range between ( 10.0 and 20.0 ) Blood Bank 12/14/2024 1:53 PM ABO/Rh: O NEG Antibody Screen: Negative ABSC POC Testing 12/31/2024 12:02 PM POC Gluc Random: 280 mg/dL -- Normal range between ( 70 and 99 ) Diagnostic Radiology 12/29/2024 12:53 PM XR OR Hip Right: XR OR Hip Right Measurements: Height: 162 cm Dosing Weight: 87.0 kg Measured Weight: 87.2 kg Blood Pressure: 119 mmHg/ 72 mmHg BMI: 33.15 kg/m2 Respiratory: Respirations: Unlabored, Quiet Respiratory Symptoms: None CPAP/BiPAP: Machine Status: Expiratory Pressure: Inspiratory Pressure: Set Respiratory Rate: Oxygen Flow Rate: 2 L/min Inspiratory Time: Cardiovascular: Heart Rhythm: Regular Vital Signs: Temp Axillary: 36.1 degC Temp Temporal Artery: 36.5 degC Temp Oral: 36.5 degC Temp Rectal: Apical Heart Rate: Peripheral Pulse Rate: 80 bpm Heart Rate: 92 bpm Respiratory Rate: 16 br/min Diet: Diet: ADA Feeding Tolerance: Appetite: Good Procedures No Procedures Documented Immunizations No Immunizations Documented This Visit Allergies penicillins (Swelling) HONEY (Swelling) (Nausea & vomiting) Milk Products (Mouth sores) Patient Friendly Med Rec List New Medications [facility], [address] [place], [place] [id number], [phone] hydrocodone-acetaminophen (Andrews 5 mg-325 mg oral tablet) 1 Tabs Oral (given by mouth) every 6 hours as needed as needed for pain for 7 Days. May take 1-2 tabs po q6. Refills: 0. Last Dose: rivaroxaban (Xarelto 10 mg oral tablet) 1 Tabs Oral (given by mouth) every day. Refills: 0. Last Dose: Medications That Have Not Changed Other Medications acetaminophen (Tylenol 8 HR Arthritis Pain 650 mg oral tablet, extended release) 2 Tabs Oral (given by mouth) every 8 hours as needed pain. Last Dose: carvedilol (carvedilol 25 mg oral tablet) 1 Tabs Oral (given by mouth) 2 times a day. Last Dose: lisinopril (lisinopril 40 mg oral tablet) 1 Tabs Oral (given by mouth) once a day (in the morning). Last Dose: metFORMIN (metFORMIN 500 mg oral tablet, extended release) 1 Tabs Oral (given by mouth) 2 times a day. Last Dose: Care Team Members: Attending Physician: Juan Casey MD Consulting Physician: Thomas Rosales DO Referring Physician: Follow up: With: Address: When: Juan Casey [address] [place] [id number] Business (1) Within 1 week Comments: Call for followup appointment Future Scheduled Appointments: PATIENT EDUCATION INFORMATION Instructions: Percy Casey MD - Orthopaedic [place] [facility] [phone] Total Hip/Knee Replacement Discharge Instructions Contact Dr. Casey' office (or the on-call physician) PRIOR to returning to the hospital or emergency room after surgery Incision Care Remove the mepilex wound dressing 1 week after your surgery. You may replace it yourself, or if you are attending physical therapy, they can help you change the dressing. You may shower 24 hours after hemovac drain was removed. You can shower over mepilex dressing as long as it is intact. If the mepilex leaks, you may change it early or remove and cover the wound with gauze and paper tape. If this would occur, please keep the wound clean and dry. It is common after total joint replacement to have drainage from the surgical incision especially in the first 48-72 hours after your surgery. If this occurs, please remember the mepilex dressing will absorb fluid until it is fully saturated. It is also common after total joint replacement for this incision site to be warm, bruised, and at times red. At your first follow-up appointment, your dressing will be removed. Steri-strips will be placed over the incision at that time. Leave these intact and they will fall off over the next 7-10 days. If the strips do not fall off, you may use a Q-tip saturated in rubbing alcohol and lightly brush over the edges to help release the adhesive. Diet Eat a balanced diet. Post-op pain medications may cause constipation. Fresh fruit juice, plenty of fluids, dried prunes, and physical activity can help. If you would continue to have difficulties with constipation, you may use Colace and Miralax [id number]. Dental Procedures Avoid all dental procedures/cleaning for 90 days following your surgery. Most patients after joint replacement are at a low risk of infection following dental procedures and do not require prophylactic antibiotics. The only exception to this is if a patient has a significantly compromised immune system. Dr. Casey will not write prescriptions for post-surgical antibiotics for dental procedures. Compression Stockings We prefer that you wear your COLIN hose for 22-24 hours a day for the first 2 weeks. If the stockings continue to cut into your thigh or roll down, you may fold them down on top of itself making it cover your calf. Do not wear the stockings if they continue to roll down as they may impair circulation. If the stockings are extremely uncomfortable and intolerable, you may discontinue them and wrap your leg with an ASHU wrap from mid-foot to mid-thigh, starting at the foot and wrapping toward the thigh. Post-op Medications At time of discharge from the hospital, you will receive an actual paper prescription for controlled substances. You will also be prescribed a blood thinner. Nursing staff will inform you which medications you were taking prior to surgery you may continue or stop. Do not drink alcohol or drive while using pain medications, as they may cause drowsiness. As your pain lessens, try taking your pain medication less often. If your pain does not go away, if it gets worse, or you notice a rash or other reaction, please contact Dr. Casey' office. Activities Continue to use a walker/cane until your physical therapist tells you to discontinue. Assistive devices are typically used the first 2 weeks after surgery. After partial knee replacement, use your walker for at least the first few days until you feel stable on your feet. After total hip replacement, depending on your body weight and/or bone quality, Dr. Casey may restrict your weight-bearing and/or require you to use a walker for an extended period of time. Perform your home exercises twice daily that you were instructed to do while at the hospital. Walking is a great form of exercise. Every 1 to 1.5 hours, attempt to get up and move about. It is more beneficial to take small frequent walks than it is to take long walks. Gradually increase your activity. Walking, swimming, and bike riding are great forms of exercise and are encouraged 3-4 weeks after surgery, once cleared by Dr. Casey. Sexual activity may resume when comfortable, following precautions. For TOTAL HIP Patients Only Do NOT bend past 90 degrees. Do NOT cross your legs or turn your foot inwards. Use an elevated toilet seat as needed for comfort. Avoid all quick or sudden movements. If certain activities cause you discomfort or a feeling of your hip moving out of place, discontinue immediately and avoid the activity. Ongoing Instructions Maintaining a healthy weight will reduce the risk of failure of your joint replacement. Inform all doctors who are treating you, including your dentist, that you have had a total joint implant. Some long-term precautions may need to be taken. Antibiotic therapy is need when some surgical procedures or dental work is done. Call your doctor before your procedure. Your joint replacement may set off metal detectors. Inform appropriate security personnel that you have an implant. WARNING SIGNS/SYMPTOMS - CALL DR. CASEY' OFFICE IF ANY OF THESE OCCUR Trouble breathing or shortness of breath Prolonged nausea, vomiting, or decreased appetite Chills or fever above 101 degrees Pain getting worse or not controlled by pain medication Problems with continuous constipation Signs of a DVT - progressively worsening pain, tenderness to touch, redness, or swelling in the thigh or calf of either leg that does not subside with rest, elevation, and icing Deep Vein Thrombosis (DVT) Deep vein thrombosis (DVT) occurs when a blood clot (thrombus) forms in a deep vein. This happens most often in the leg. It can also happen in the arms or other parts of the body. A part of the clot called an embolus can break off and travel to the lungs. When this happens, it?s called a pulmonary embolism (PE). PE is a medical emergency. It can cut off blood flow and lead to . Both DVT and PE are closely related. Together, they are often referred to by the term venous thromboembolism (VTE). Risk factors for DVT Anything that slows blood flow, injures the lining of a vein, or increases blood clotting can make you more prone to having DVT. This includes the following: ?Long periods without movement (such as when sitting for many hours at a time or when recovering from major surgery or illness) ?Estrogen (female hormone) therapy, such as hormone replacement therapy (HRT) or control pills ?Fractured hip or leg ?Major surgery or joint replacement ?Major trauma or spinal cord injury ?Cancer ?Family history ?Excess weight or obesity ?Smoking ?Older age ?Past history of a DVT ?Inherited clotting disorders Symptoms DVT does not always cause symptoms. When symptoms do occur, they may appear around the site of the DVT, such as in the leg. Possible symptoms include: ?Swelling ?Pain ?Warmth ?Redness ?Tenderness Home care ?You were likely prescribed blood thinners (anticoagulants). They may be given as pills (oral) or shots (injections). Follow all instructions when using these medicines. Note: Don't take blood thinners with other medicines, herbal remedies, or supplements without talking to your provider first. Certain medicines or products can affect how blood thinners work. ?Follow your provider?s instructions about activity and rest. ?If support or compression stockings are prescribed, wear them as directed. These may help improve blood flow in the legs. ?When sitting or lying down, move your ankles, toes and knees often. This may also help improve blood flow in the legs. Follow-up care Follow up with your healthcare provider, or as advised. If imaging tests were done, they may need further review by a doctor. You will be told of any new findings that may affect your care. When to get medical advice Call your healthcare provider right away if any of these occur: ?New or increased swelling, pain, soreness, warmth, or redness, in the leg, arm, or other area ?Blood in the urine ?Bleeding with bowel movements Call 911 Call 911?if any of these occur: ?Bleeding from the nose, gums, a cut, or vagina ?Heavy or uncontrolled bleeding ?Trouble breathing ?Chest pain or discomfort that worsens with deep breathing or coughing ?Coughing (may cough up blood) ?Fast heartbeat ?Sweating ?Anxiety ?Lightheadedness, dizziness, or fainting ? [id number] [employer]. All rights reserved. This information is not intended as a substitute for professional medical care. Always follow your healthcare professional's instructions.Constipation (Adult) Constipation means that you have bowel movements that are less frequent than usual. Stools often become very hard and difficult to pass. Constipation is very common. At some point in life, it affects almost everyone. Since everyone's bowel habits are different, what is constipation to one person may not be to another. Your healthcare provider may do tests to diagnose constipation. It depends on what?they?find when evaluating you. Symptoms of constipation include: ?Abdominal pain ?Bloating ?Vomiting ?Painful bowel movements ?Itching, swelling, bleeding, or pain around the anus Causes Constipation can have many causes. These include: ?Diet low in fiber ?Too much dairy ?Not drinking enough liquids ?Lack of exercise or physical activity (especially true for older adults) ?Changes in lifestyle or daily routine, including , aging, work, and travel ?Frequent use or misuse of laxatives ?Ignoring the urge to have a bowel movement or delaying it until later ?Medicines, such as certain prescription pain medicines, iron supplements, antacids, certain antidepressants, and calcium supplements ?Diseases like irritable bowel syndrome, bowel obstructions, stroke, diabetes, thyroid disease, Parkinson disease, hemorrhoids, and colon cancer Complications Possible complications of constipation can include: ?Hemorrhoids ?Rectal bleeding from hemorrhoids or anal fissures?(skin tears) ?Hernias ?Chronic constipation ?Fecal impaction, a severe form of constipation in which a large amount of hard stool is in your rectum that you can't pass ?Bowel obstruction or perforation Home care All treatment should be done after talking with your healthcare provider. This is especially true if you have another medical problem, are taking prescription medicines, or are an older adult. Treatment most often involves lifestyle changes. You may also need medicines. Your healthcare provider will tell you which will work best for you. Follow the advice below to help avoid this problem in the future. Lifestyle changes These lifestyle changes can help prevent constipation: ?Diet. Eat a high-fiber diet, with fresh fruit and vegetables, and reduce dairy intake, meats, and processed foods ?Fluids. It's important to get enough fluids each day. Drink plenty of water when you eat more fiber. If you are on diet that limits the amount of fluid you can have, talk about this with your healthcare provider. ?Regular exercise. Check with your healthcare provider first. Medicines Take any medicines as directed. Some laxatives are safe to use only every now and then. Others can be taken on a regular basis. While laxatives don't cause bowel dependence, they are treating the symptoms. So your constipation may return if you don't make other changes. Talk with your healthcare provider or pharmacist if you have questions. Prescription pain medicines can cause constipation. If you are taking this kind of medicine, ask your healthcare provider if you should also take a stool softener. Medicines you may take to treat constipation include: ?Fiber supplements ?Stool softeners ?Laxatives ?Enemas ?Rectal suppositories Follow-up care Follow up with your healthcare provider if symptoms don't get better in the next few days. You may need to have more tests or see a specialist. Call 911 Call 911 if any of these occur: ?Trouble breathing ?Stiff, rigid abdomen that is severely painful to touch ?Large amount of blood in the stool ?Confusion ?Fainting or loss of consciousness ?Rapid heart rate ?Chest pain When to seek medical advice Call your healthcare provider right away if any of these occur: ?Fever of 100.4?F (38?C) or higher, or as directed by your healthcare provider ?Failure to resume normal bowel movements ?Pain in your abdomen or back gets worse ?Nausea or vomiting ?Swelling in your abdomen ?Small amount of blood in the stool ?Black, tarry stool ?Involuntary weight loss ?Weakness ? [id number] [employer]. All rights reserved. This information is not intended as a substitute for professional medical care. Always follow your healthcare professional's instructions. DISCHARGE SUMMARY Observed: 12/31/2024 11:43 AM Status: F Source: [facility] Admission Information Patient was admitted for degenerative arthritis of the right hip Hospital Course Patient was admitted. She is taken surgery. Right total hip replacement was performed. Patient tolerated the procedure well. She is ambulatory. Negative Homans' sign. Significant Findings Degenerative arthritis right hip Medications Home carvedilol 25 mg oral tablet, 25 mg= 1 tabs, Oral, BID lisinopril 40 mg oral tablet, 40 mg= 1 tabs, Oral, qAM metFORMIN 500 mg oral tablet, extended release, 500 mg= 1 tabs, Oral, BID Tylenol 8 HR Arthritis Pain 650 mg oral tablet, extended release, 1300 mg= 2 tabs, Oral, q8hr, PRN Prescriptions Andrews 5 mg-325 mg oral tablet, 1 tabs, Oral, q6hr, PRN, May take 1-2 tabs po q6 Xarelto 10 mg oral tablet, 10 mg= 1 tabs, Oral, Daily Procedures and Treatment Provided Right total hip replacement Physical Exam Vitals & Measurements T: 36.5 ?C (Oral) HR: 92 (Monitored) RR: 16 BP: 119/72 SpO2: 97% HT: 162 cm HT: 162 cm WT: 87.2 kg BMI: 33.15 BMI: 33.15 Additional Vitals No qualifying data available. Discharge Plan S/P total right hip arthroplasty Ordered: hydrocodone-acetaminophen, 1 tabs, Oral, q6hr, PRN, May take 1-2 tabs po q6, X 7 days, # 42 tabs, 0 Refill(s), 01/07/25 11:41:00 EDT, Pharmacy: [facility] Orders: rivaroxaban, 1 tabs, Oral, Daily, # 12 tabs, 0 Refill(s), Pharmacy: [facility] Discharge Patient Patient Discharge Condition Stable Discharge Disposition Patient's, progress activities as tolerated. Andrews for discomfort Renettato Return to the office in 2 weeks Electronically signed by Juan Casey MD 12/31/24 11:44 EDT POC GLUCOSE RANDOM Collected: 11:16 AM Status: F Source: [facility] TYPE CODE TESTS RESULT OUT OF RANGE REFERENCE UNITS LAB CD:[id number](VAN NC) POC Gluc Random 280 High 70-99 mg/dL Performed By: #### CD:[id number] #### [address] [address] POC GLUCOSE RANDOM Collected: 12/31/2024 8:41 AM Sta tus: F Source: [facility] TYPE CODE TESTS RESULT OUT OF RANGE REFERENCE UNITS LAB CD:[id number](VAN NC) POC Gluc Random 183 High 70-99 mg/dL Performed By: #### CD:[id number] #### [address] [address] POC GLUCOSE RANDOM Collected: 12/30/2024 9:22 PM Sta tus: F Source: [facility] TYPE CODE TESTS RESULT OUT OF RANGE REFERENCE UNITS LAB CD:[id number](VAN NC) POC Gluc Random 297 High 70-99 mg/dL Performed By: #### CD:[id number] #### [address] [address] POC GLUCOSE RANDOM Collected: 12/30/2024 4:13 PM Sta tus: F Source: [facility] TYPE CODE TESTS RESULT OUT OF RANGE REFERENCE UNITS LAB CD:[id number](VAN NC) POC Gluc Random 243 High 70-99 mg/dL Performed By: #### CD:[id number] #### [address] [address] POC GLUCOSE RANDOM Collected: 12/30/2024 1:06 PM Sta tus: F Source: [facility] TYPE CODE TESTS RESULT OUT OF RANGE REFERENCE UNITS LAB CD:[id number](VAN NC) POC Gluc Random 294 High 70-99 mg/dL Performed By: #### CD:[id number] #### [address] [address] POC GLUCOSE RANDOM Collected: 10:57 AM Status: F Source: [facility] TYPE CODE TESTS RESULT OUT OF RANGE REFERENCE UNITS LAB CD:[id number](VAN NC) POC Gluc Random 336 High 70-99 mg/dL Performed By: #### CD:[id number] #### [address] [address] HGB & HCT Collected: 9:36 AM Status: F Source: [facility] TYPE CODE TESTS RESULT OUT OF RANGE REFERENCE UNITS LAB [id number](LOINC) Hgb 8.9 Low 12.0-16.0 g/dL LAB W10254(LOINC) Hct 26.8 Low 36.0-46.0 % Performed By: #### HGBHCT ## ## [address] [address] .EGFR Collected: 9:36 AM Status: F Source: [facility] TYPE CODE TESTS RESULT OUT OF RANGE REFERENCE UNITS LAB R27196(LOINC) Estimated GFR >60 >=60 mL/m in/1. 73m? Result Comment: [facility] have implemented the eGFR calculation approach that does not have a coefficient for race and that conforms to the NKF-ASN Task Force Recommendations. Stages of Chronic Kidney Disease GFR Stage 3a Mild to moderate loss of kidney function 59 to 45 Stage 3b Moderate to severe loss of kidney function 44 to 33 Stage 4 Severe loss of kidney function 29 to 15 Stage 5 Kidney failure Less than 15 GFR calculated using the CKD-Epi Creatinine Equation (2020): eGFR = 142 X min(SCr/?, 1)? X max(SCr /?, 1)-1.200 X 0.9938Age X 1.012 [if female] Abbreviations/Units: eGFR (estimated glomerular filtration rate) = mL/min/1.73 m2 SCr (standardized serum creatinine) = mg/dL ? = 0.7 (females) or 0.9 (males) ? = -0.241 (females) or -0.302 (males) min = indicates the minimum of SCr/? or 1 max = indicates the maximum of SCr/? or 1 Age = years Performed By: #### EGFR #### [place] [address] HGB A1C Collected: 9:36 AM Status: F Source: [facility] TYPE CODE TESTS RESULT OUT OF RANGE REFERENCE UNITS LAB [id number]([facility]) Hgb A1c 7.7 High 4.0-5.6 % A1c Result Comment: Reference Ra nge: 4.0 - 5.6 % Normal 5.7 - 6.4 % Pre-Diabetes > 6.5 % Diabetes LAB F79474([facility]) eAvg Glucose 174 High 68-114 mg/dL Result Comment: Mathematical Calc approx. The mean gluc equivalency of A1c Performed By: #### HBA1C ### # [place] [address] BASIC METABOLIC PROFILE Collected: 12/30/2024 9:36 AM Status: F Source: [facility] TYPE CODE TESTS RESULT OUT OF RANGE REFERENCE UNITS LAB Y54627(LOINC) Sodium Lvl 134 133-142 mmol/L LAB U33703(LOINC) Potassium Lvl 3.8 3.4-4.8 mmol /L LAB Y39045(LOINC) Chloride 104 98-110 mmol/L LAB A92454(LOINC) CO2 22 22-32 mmol/L LAB F47350(INC) Anion Gap 8 4-12 LAB A95440(INC) Glucose Lvl 366 High 70-99 mg/dL LAB BUN(LOINC) BUN 26 8-26 mg/dL LAB A560(LOINC) Creatinine Lvl 0.71 0.44-1.03 mg/ dL LAB X36414(LOINC) BUN Crea Ratio 36.6 High 10.0-20.0 LAB B76263(INC) Calcium Lvl 8.4 Low 8.5-10.3 mg/dL Performed By: #### CD:[id number] #### [place] [address] POC GLUCOSE RANDOM Collected: 12/30/2024 6:35 AM Sta tus: F Source: [facility] TYPE CODE TESTS RESULT OUT OF RANGE REFERENCE UNITS LAB CD:[id number](VAN NC) POC Gluc Random 272 High 70-99 mg/dL Performed By: #### CD:[id number] #### [address] [address] POC GLUCOSE RANDOM Collected: 12/30/2024 4:20 AM Sta tus: F Source: [facility] [facility] TYPE CODE TESTS RESULT OUT OF RANGE REFERENCE UNITS LAB CD:[id number]([facility]AN [facility]) POC Gluc Random 330 High 70-99 mg/dL Performed By: #### CD:[id number] #### [address] [address] POC GLUCOSE RANDOM Collected: 12:16 AM Status: F Source: [facility] TYPE CODE TESTS RESULT OUT OF RANGE REFERENCE UNITS LAB CD:[id number]([facility] NC) POC Gluc Random 362 High 70-99 mg/dL Performed By: #### CD:[id number] #### [address] [address] POC GLUCOSE RANDOM Collected: 10:17 PM Status: F Source: [facility] TYPE CODE TESTS RESULT OUT OF RANGE REFERENCE UNITS LAB CD:[id number]([facility]) POC Gluc Random 379 High 70-99 mg/dL Performed By: #### CD:[id number] #### [address] [address] CONSULTATION NOTE - GENERIC Observed: 6:49 PM Status: F Source: [facility] Chief Complaint Postoperative diabetes mellitus management?consultation Assessment/Plan 74-year-old lady with past medical history of obesity/hypertension/diabetes underwent total right hip arthroplasty on the DrWang Casey?on 29 December 2024?medicine consultation requested for comanagement while in the hospital especially diabetes Active issues at this point of time are as follows ##Status post total right hip arthroplasty?Dr. Casey?29 December 2024?postop day 0?pain control/bowel regimen/OT PT/DVT prophylaxis?Xarelto 10 mg on board?cefazolin per Ortho team ##Hypertension?well-controlled at this point of time ##Diabetes?currently blood sugars around 150s?170s?A1c/sliding scale Thank you very much for the consult we will continue to follow and fine-tune depending on the course History of Present Illness 74-year-old lady with past medical history of obesity/hypertension/diabetes underwent total right hip arthroplasty on the Dr. Casey?on 29 December 2024?medicine consultation requested for comanagement while in the hospital especially diabetes Review of Systems All systems were reviewed all of them were negative except for the ones mentioned earlier Objective Elderly lady No distress Pupils equal reacting to light and accommodation Neck supple no JVD no thyromegaly Heart exam S1-S2 normal 2/6 systolic murmur Lung exam no wheezing no crackles good air entry bilaterally Abdomen protuberant but soft Extremities no significant edema Right hip dressing dry and intact Neurologically alert oriented x 3?was sleeping when I saw her around 6:45 PM?but woke up immediately and had a good conversation Mood stable Vitals & Measurements T: 36.6 ?C (Oral) TMIN: 36.1 ?C (Axillary) TMAX: 36.6 ?C (Temporal Artery) HR: 83 (Monitored) RR: 16 BP: 111/66 SpO2: 97% HT: 162 cm HT: 162 cm WT: 87.0 kg (Dosing) WT: 87.0 kg BMI: 33.15 BMI: 33.15 Additional Vitals No qualifying data available. Problem List/Past Medical History Ongoing Acid reflux Arthritis of right hip DDD (degenerative disc disease), lumbar DM2 (diabetes mellitus, type 2) History of colon polyps Hx of motion sickness Hypertension Lactose intolerance Left leg DVT Lipoma Lumbar herniated disc Obesity Overactive bladder Right hip pain Torn rotator cuff Vertigo Historical Arthritis of left knee Hip pain, left Left knee pain Degree of Malnutrition: No qualifying data available. Procedure/Surgical History [facility] - Cardiac catheterization Repair of abdominal wall Arthroscopy of knee COLONOSCOPY & POLYPECTOMY Excision of lipoma of back Total replacement of right knee joint ANESTH REPAIR OF HERNIA TOTAL HYSTERECTOMY (1971) Cholecystectomy (1999) Arthroplasty Knee Total Replacement-MIS (Left) (12/30/2018) Arthroplasty Hip Total Replacement - Anterio-Lateral (Left) (07/14/2019) Arthroplasty Hip Total Replacement - Anterio-Lateral (Right) (12/29/2024) Medications Inpatient acetaminophen, 650 mg, Oral, QID acetaminophen, 650 mg, Oral, q4hr, PRN acetaminophen, 650 mg, Oral, q4hr, PRN bisacodyl, 10 mg= 1 supp, Rectal, Daily, PRN ceFAZolin, 1 g= 50 mL, IV Piggyback, q8hr Dextrose 10% in Water IV Piggyback, 125 mL, IV Piggyback, As Indicated, PRN Dextrose 5% in Lactated Ringers Injection 1,000 mL, 1000 mL, IV diphenhydrAMINE, 25 mg= 0.5 mL, IV Push, q4hr, PRN docusate sodium, 100 mg, Oral, BID glucagon, 1 mg, Subcutaneous, As Indicated, PRN hydrocodone-acetaminophen 5 mg-325 mg oral tablet, 1 tabs, Oral, q4hr, PRN hydrocodone-acetaminophen 5 mg-325 mg oral tablet, 2 tabs, Oral, q4hr, PRN HYDROmorphone, 0.5 mg= 0.5 mL, IV Push, q3hr, PRN insulin aspart, see comments, Subcutaneous, ACHS magnesium hydroxide 8% oral suspension, 30 mL, Oral, Daily, PRN ondansetron, 4 mg= 2 mL, IV Push, q6hr, PRN polyethylene glycol 3350, 17 g= 1 EA, Oral, Daily rivaroxaban, 10 mg, Oral, Daily sodium biphosphate-sodium phosphate 7 g-19 g rectal enema, 133 mL, Rectal, Daily, PRN Home carvedilol 25 mg oral tablet, 25 mg= 1 tabs, Oral, BID lisinopril 40 mg oral tablet, 40 mg= 1 tabs, Oral, qAM metFORMIN 500 mg oral tablet, extended release, 500 mg= 1 tabs, Oral, BID Tylenol 8 HR Arthritis Pain 650 mg oral tablet, extended release, 1300 mg= 2 tabs, Oral, q8hr, PRN Allergies HONEY (Nausea & vomiting, Swelling) Milk Products (Mouth sores) penicillins (Swelling) Social History Alcohol Never Employment/School Retired Exercise Exercise frequency: Daily. Self assessment: Fair condition. Exercise type: Walking. Home/Environment Lives with Spouse. Living situation: Home/Independent. SPOUSE, Home equipment: Glucose monitoring, Walker/Cane. 1 DOGS Nutrition/Health Diabetic, Caffeine intake amount: OCCASSIONAL POP/TEA/COFFEE. Substance Abuse Denies All Tobacco Never (less than 100 in lifetime) Use:. Immunizations Vaccine Date Status influenza virus vaccine, inactivated 07/14/2019 Given Comments : New Med Order Lab Results No qualifying data available Microbiology - Current Encounter No qualifying data available. Diagnostic Results Diagnostic Radiology XR OR Hip Right 12/29/24 12:53:15 This report was not created by a radiologist, physician, or advanced practice provider. The details of this surgical case can be found within the surgical operative note. The surgical Operative note is located within the patient?s chart. Signed By: Milena Carson Electronically signed by Andriy Walton MD 12/29/24 18:50 EDT POC GLUCOSE RANDOM Collected: 12/29/2024 4:34 PM Sta tus: F Source: [facility] TYPE CODE TESTS RESULT OUT OF RANGE REFERENCE UNITS LAB CD:[id number]([facility]) POC Gluc Random 300 High 70-99 mg/dL Performed By: #### CD:[id number] #### [address] [address] POC GLUCOSE RANDOM Collected: 12/29/2024 2:57 PM Sta tus: F Source: [facility] TYPE CODE TESTS RESULT OUT OF RANGE REFERENCE UNITS LAB CD:[id number](VAN CT) POC Gluc Random 175 High 70-99 mg/dL Performed By: #### CD:[id number] #### [address] [address] POC GLUCOSE RANDOM Collected: 12/29/2024 1:49 PM Sta tus: F Source: [facility] TYPE CODE TESTS RESULT OUT OF RANGE REFERENCE UNITS LAB CD:[id number](VAN CT) POC Gluc Random 162 High 70-99 mg/dL Performed By: #### CD:[id number] #### [address] [address] [place] [address] OPERATIVE REPORT Observed: 12/29/2024 1:26 PM Status: F Source: [facility] Indication for Surgery Degenerative arthritis right hip Preoperative Diagnosis Degenerative arthritis right hip Postoperative Diagnosis Degenerative arthritis right hip Operation Arthroplasty Hip Total Replacement - Anterio-Lateral, Right Parveen 54 mm Continuum cup 36 inner diameter lipped liner Fit more before femoral stem 36 mm standard neck versus head Surgeon(s) Carmela ARORA, Juan Jimenes (Surgeon - Primary) Cylinder Die Machine Operator Adriano MOREJON, Benji Jansen (Chemical Cell Changer) Anesthesia General Nancy WHITAKER, Chastity Fields (Provider) Estimated Blood Loss 200.0 mL Urine Output 200.0 mL Findings As above Specimen(s) None Complications None Technique Patient was brought in the operative room placed in supine position on the operating table. General acetic was administered. Patient was placed into a left lateral decubitus position the right hip girdle was prepped with ChloraPrep draped in sterile fashion. Patient was noted to be morbidly obese. She had a very thick subcu layer. Dissection was taken down through the subcu layer. Deep fascia was identified and split longitudinally. Hip abductor was identified and dissection was taken down along the inferior belly of this. Capsule was identified and incised. The head and neck were then exposed. The neck was then osteotomized at the base of the head and a second cut was made at the base of the neck the head and neck fragments were removed. Acetabular labrum was excised. The fovea was cleared and released around the proximal femur was carried out. Marked degenerative changes were noted. The acetabulum was then reamed up to 53 mm. Good cortical cancellous bed was obtained. Cancellous bone graft head was placed into the cup and a 54 mm Continuum cup was then seated and seated properly. This was fixed with 2 acetabular screws. And a neutral trial liner was placed. The leg was then placed into the leg bag and the femur was approached. Box chisel was used followed by the rattail rasp. The canal was found and addressed with the fit more rasp up to it before. Standard neck 36 mm head trial was assembled. Hip was reduced brought the range of motion appear to be a proper length and good stability. X-ray was obtained to verify the position of the cup and femoral stem. Both appear to be in good position. The hip was then redislocated. The RAAS was removed. The trial liner was removed. The hip was irrigated out the Simpulse with gentamicin irrigation solution. The deep fascia layer was injected with 1 syringe of the total joint compound. A elevated liner with elevation superior and posteriorly and its orientation was then seated the fit more before femoral stem was inserted down the canal cancellous bone graft was placed on the neck anteriorly. A 36 mm versus head was then assembled standard neck hip was reduced brought the range of motion was noted to be stable in all positions. No impingement was noted. The wound was irrigated out the Simpulse with gentamicin irrigation solution. Topical TXA was used. Vancomycin powder was sprinkled in the wound and the deep fascia layer was then closed with one #1 Ethibond [id number] sutures. The subcu was closed in 3 layers with #1 Vicryl 2-0 Vicryl and 2-0 Vicryl followed by 3-0 Monocryl subcuticular stitch dressed with Steri-Strips fluffs ABD and a Tegaderm. Anesthetic was discontinued patient was transferred to recovery in a stable condition. Tourniquet Time NA Sponge/Needle Count Correct Fluid Count 250 mg of albumin 1400 cc cc of crystalloids Catheters, Drains, Tubes Device: Loaiza Tray 16FR Latex Free [id number] Electronically signed by Juan Casey MD 12/29/24 13:32 EDT POC GLUCOSE RANDOM Collected: 12:38 PM Status: F Source: [facility] TYPE CODE TESTS RESULT OUT OF RANGE REFERENCE UNITS LAB CD:[id number](VAN CT) POC Gluc Random 161 High 70-99 mg/dL Performed By: #### CD:[id number] #### [facility] [address] [place] [address] XR OR HIP RIGHT Observed: 12/29/2024 12:30 PM Status: F Source: [facility] This report was not creat ed by a radiologist, physician, or advanced practice provider. The details of this surgical case can be found within the surgical operative note. The surgical Operative note is located within the patient's chart. Final Signed by: Milena Carson Signed (Electronic Signature): 12/29/2024 3:18 pm Transcribed DT/TM: 12/29/2024 3:18 (If Report Is Signed, Electronically Signed in Other Vendor System) POC GLUCOSE RANDOM Collected: 10:41 AM Status: F Source: [facility] TYPE CODE TESTS RESULT OUT OF RANGE REFERENCE UNITS LAB CD:[id number]([facility]) POC Gluc Random 174 High 70-99 mg/dL Performed By: #### CD:[id number] #### [address] [address] POC GLUCOSE RANDOM Collected: 12/29/2024 8:21 AM Sta tus: F Source: [facility] TYPE CODE TESTS RESULT OUT OF RANGE REFERENCE UNITS LAB CD:[id number]([facility]) POC Gluc Random 210 High 70-99 mg/dL Performed By: #### CD:[id number] #### [address] [address] XR CHEST 2 VWS Observed: 12/14/2024 4:30 PM Status: COMPLETED Source: [facility] XR CHEST 2 VWS CHEST 2 VIEW COMPARISON: 09/19/2024 HISTORY: cough congestion. . FINDINGS: Frontal and lateral chest radiographs obtained. The cardiomediastinal silhouette and pulmonary vasculature are within normal limits. There is no pneumothorax, focal consolidation, or pleural effusion. IMPRESSION: No evidence for an acute cardiopulmonary process. Finalized by Zana Jensen MD on 12/14/2024 4:55 PM CMP Collected: 12/14/2024 1:54 PM Status: F Source: [facility] TYPE CODE TESTS RESULT OUT OF RANGE REFERENCE UNITS LAB K27963(LOINC) Sodium Lvl 137 133-142 mmol/L LAB B20426(LOINC) Potassium Lvl 4.2 3.4-4.8 mmol /L LAB O87395(LOINC) Chloride 99 98-110 mmol/L LAB C57713(LOINC) CO2 28 22-32 mmol/L LAB K22839([facility]) Anion Gap 10 4-12 LAB M64459([facility]) Glucose Lvl 292 High 70-99 mg/dL LAB BUN(LOINC) BUN 23 8-26 mg/dL LAB A560([facility]) Creatinine Lvl 0.82 0.44-1.03 mg/ dL LAB G32333([facility]) BUN Crea Ratio 28.0 High 10.0-20.0 LAB M46422([facility]) Bili Total 0.7 0.3-1.2 mg/dL LAB D86843([facility]) Alk Phos 51 32-91 IU/L LAB G61426([facility]) AST 22 15-41 IU/L LAB P75002([facility]) ALT 17 14-54 IU/L LAB B31309([facility]) Total Protein 7.4 6.5-8.1 g/dL LAB M63238([facility]) Albumin Lvl 3.8 3.2-4.9 g/dL LAB C61678([facility]) AG Ratio 1.1 1.1-2.2 LAB G15031([facility]) Calcium Lvl 9.9 8.5-10.3 mg/dL Performed By: #### COMP #### [place] [address] CBC W/ DIFF Collected: 5 1:54 PM Status: F Source: [facility] TYPE CODE TESTS RESULT OUT OF RANGE REFERENCE UNITS LAB W93520([facility]) WBC 5.3 4.5-11.0 x10*3/mcL LAB Z87700([facility]) RBC 4.27 3.80-5.20 x10*6/mc L LAB N35753([facility]) Hgb 12.8 12.0-16.0 g/dL LAB Q75893([facility]) Hct 37.9 36.0-46.0 % LAB V92686(LOINC) MCV 88.9 80.0-100.0 fL LAB G97042(LOINC) MCH 30.0 27.0-35.0 pg LAB C54203(LOINC) MCHC 33.8 31.0-37.0 % LAB D33672(LOINC) Platelet 242 150-450 x10*3/mcL LAB C82843(LOINC) RDW 13.8 11.6-14.8 % LAB I06400(LOINC) Mean Platelet Volume 8.1 6.7-10.6 fL Performed By: #### CBC #### [address] [address] DIFF AUTO Collected: 5 1:54 PM Status: F Source: [facility] TYPE CODE TESTS RESULT OUT OF RANGE REFERENCE UNITS LAB Y48009(LOINC) Neutro Auto 48.2 47.2-70.8 % LAB V21963(LOINC) Lymph Auto 30.1 27.2-40.8 % LAB C19490(LOINC) Citrus Auto 10.5 3.7-11.9 % LAB T95805(LOINC) Eos Auto 10.4 High 0.0-5.4 % LAB K39804(LOINC) Basophil Auto 0.8 0.0-1.5 % LAB M00440(LOINC) Neutro Absolute 2.6 1.8-7.7 x10*3/mcL LAB J38289(LOINC) Lymph Absolute 1.6 1.0-4.8 x10*3/mcL LAB I96485(LOINC) Citrus Absolute 0.6 0.1-1.1 x10* 3/mcL LAB A43747(LOINC) Eos Absolute 0.6 High 0.0-0.4 x10*3 /mcL LAB Z91141(LOINC) Baso Absolute 0.0 0.0-0.2 x10* 3/mcL Performed By: #### .Automate d Diff #### [address] [address] .EGFR Collected: 5 1:54 PM Status: F Source: [facility] TYPE CODE TESTS RESULT OUT OF RANGE REFERENCE UNITS LAB L84840(LOINC) Estimated GFR >60 >=60 mL/m in/1. 73m? Result Comment: [employer] have implemented the eGFR calculation approach that does not have a coefficient for race and that conforms to the NKF-ASN Task Force Recommendations. Stages of Chronic Kidney Disease GFR Stage 3a Mild to moderate loss of kidney function 59 to 45 Stage 3b Moderate to severe loss of kidney function 44 to 33 Stage 4 Severe loss of kidney function 29 to 15 Stage 5 Kidney failure Less than 15 GFR calculated using the CKD-Epi Creatinine Equation (2020): eGFR = 142 X min(SCr/?, 1)? X max(SCr /?, 1)-1.200 X 0.9938Age X 1.012 [if female] Abbreviations/Units: eGFR (estimated glomerular filtration rate) = mL/min/1.73 m2 SCr (standardized serum creatinine) = mg/dL ? = 0.7 (females) or 0.9 (males) ? = -0.241 (females) or -0.302 (males) min = indicates the minimum of SCr/? or 1 max = indicates the maximum of SCr/? or 1 Age = years Performed By: #### EGFR #### [facility] [address] [place] [address] ABO/RH Observed: 12/14/2024 1:53 PM Status: F Source: [facility] surgery date 12/29/2024 ABO/Rh: O NEG Performed By: #### ABORH ### # [facility] (DEFAULT) [address] [place], [place] [address] [address] [place] [address] ABSC AUTO Observed: 12/14/2024 1:53 PM Status: F Source: [facility] Antibody Screen: Negative AB SC Performed By: #### ASA #### [facility] (UNKNOWN) [address] [place] [address] XR KNEE RT 3 VWS Observed: 11/29/2024 6:00 PM Status: COMPLETED Source: [facility] XR KNEE RT 3 VWS EXAM: XR KNEE RT 3 VWS CLINICAL INFORMATION: Injury. COMPARISON: 05/26/2022 FINDINGS: There are changes of right knee arthroplasty. There is no convincing radiographic evidence for hardware complications or failure. There is no evidence for an acute fracture. IMPRESSION: Stable changes of right knee arthroplasty. There is no convincing radiographic evidence for hardware complications or failure. Finalized by Eladio Hardy MD on 11/29/2024 6:42 PM LIPID PROFILE Collected: 11/18/2024 12:48 PM Status: COMPLETED Source: [facility] TYPE CODE TESTS RESULT OUT OF RANGE REFERENCE UNITS LAB CHOL(LOINC) CHOLESTEROL 209 High 150-200 mg/dL LAB TRIG(LOINC) TRIGLYCERIDE 143 27-150 mg/dL LAB HDL(LOINC) HDL CHOLESTEROL 48 >39 mg/dL Result Comment: HDL <40 mg/dL - High Risk HDL > or = 40mg/dL- Desirable HDL >60 mg/dL - Negative Risk LAB VLDL(LOINC) VERY LOW LIPOPROTEIN 29 0-30 mg/dL LAB LDL(LOINC) LDL (CALC) 132 High <130 mg/dL Result Comment: LDL <100 mg/dL - Desirable LDL >160 mg/dL - High Risk LAB CHDL(LOINC) CHOLESTEROL:HDL 4.4 1.0-5.0 Performed By: #### [id number] # ### [facility] ([id number]) [address] [place] [address], [address] [place] [address] CT CTA CHEST Observed: 10/30/2024 11:52 AM Status: COMPLETED Source: [facility] CT CTA CHEST STUDY: CT angiography of the chest with contrast CLINICAL HISTORY: Difficulty breathing. Pulmonary embolism (PE) suspected, high prob COMPARISON: 09/08/2023 TECHNIQUE: CT angiography of the chest was performed utilizing thin section axial images with coronal and sagittal reformatted images generated. 3-D maximum intensity projection coronal and sagittal reformatted images generated and reviewed. Images acquired following the uneventful administration of 100 cc Omnipaque 350 nonionic intravenous contrast. Automated exposure control was utilized. FINDINGS: Pulmonary nodule opacification is adequate for the lower central main and lobar vessels. There is no large central, main or lobar pulmonary thromboembolism. There is no enlarged axillary or mediastinal nodes. Vertebral artery radiation. Moderate coronary calcifications. There are small anterior pericardial effusion. No pneumothorax. Central airways patent. Dependent changes in both lungs. Small hiatal hernia. Centrilobular thoracic kyphosis with degenerative change of the thoracic spine. IMPRESSION: 1. No evidence of pulmonary thromboembolism. 2. No definitive acute cardiopulmonary process. All CT scans at this facility use dose modulation, iterative reconstruction, and/or weight based dosing when appropriate to reduce radiation dose to as low as reasonably achievable. Finalized by Thomas Galan MD on 10/30/2024 12:39 PM 1 HOUR TROP I, HIGH SENSITIVITY Collected: 10/07 11:38 AM Status: COMPLETED Source: [facility] TYPE CODE TESTS RESULT OUT OF RANGE REFERENCE UNITS LAB TNIHS1(LOINC) 1 HOUR TROP I, HIGH SENSITIVITY 5 <16 ng/L Performed By: #### [id number] # ### [facility] ([id number]) [address] [place] [address], [place] [address] CBC AND AUTO DIFF Collected: 10/30/2024 10:32 A M Status: COMPLETED Source: [facility] TYPE CODE TESTS RESULT OUT OF RANGE REFERENCE UNITS LAB WBC(LOINC) WBC COUNT 5.2 4.0-11.0 X10E9/L LAB RBC(LOINC) RBC COUNT 4.06 3.80-5.20 X10E12/L LAB HGB(LOINC) HEMOGLOBIN 12.0 11.7-15.5 g/dL LAB HCT(LOINC) HEMATOCRIT 36.2 35-47 % LAB MCV(LOINC) MCV 89 80-100 fL LAB MCH(LOINC) MCH 29.6 27-34 pg LAB MCHC(LOINC) MCHC 33.2 32-36 g/dL LAB RDW(LOINC) RDW 14.6 11.5-15.0 % LAB PLTC(LOINC) PLATELET COUNT 261 150-450 X10E9 /L LAB MPV(LOINC) MPV 8.4 7-12 fL LAB NEUT(LOINC) % NEUTROPHILS 48.0 % LAB LYMP(LOINC) % LYMPHOCYTES 36.4 % LAB MONO(LOINC) % MONOCYTES 11.0 % LAB EOS(LOINC) % EOSINOPHILS 3.7 % LAB BASO(LOINC) % BASOPHILS 0.9 % LAB ANEUT(LOINC) ABSOLUTE NEUTROPHIL 2.5 1.5-6.6 X10E9/L LAB ALYMP(LOINC) ABSOLUTE LYMPHOCYTE 1.9 1.0-3.5 X10E9/L LAB AMONO(LOINC) ABSOLUTE MONOCYTE 0.6 0-0.9 X10E9/L LAB AEOS(LOINC) ABSOLUTE EOSINOPHIL 0.2 0.0-0.4 X10E9/L LAB ABASO(LOINC) ABSOLUTE BASOPHIL 0.0 0.0-0.2 X10E9/L Performed By: #### CBCA, CMP , [id number], [id number] #### [facility] ([id number]) [address] [place] [address], [place] [address] COMPREHENSIVE METABOLIC PANEL Collected : 10/30/2024 10:32 AM Status: COMPLETED Source: [facility] TYPE CODE TESTS RESULT OUT OF RANGE REFERENCE UNITS LAB NA(LOINC) SODIUM 135 134-146 mmol/L LAB K(LOINC) POTASSIUM 4.8 3.5-5.0 mmol/L Result Comment: SPECIMEN HEM OLYZED, RESULTS INCREASED LAB CL(LOINC) CHLORIDE 101 98-109 mmol/L LAB CO2(LOINC) CARBON DIOXIDE 26 22-32 mmol/L LAB AGAP(LOINC) ANION GAP 8 5-15 mmol/L LAB BUN(LOINC) BLOOD UREA NITROGEN 21 5-27 mg/dL LAB CRET(LOINC) CREATININE 0.65 0.40-1.00 mg/dL Result Comment: METHOD TRACE ABLE TO IDMS STANDARD LAB GLU(LOINC) GLUCOSE 190 High 65-99 mg/dL LAB CA(LOINC) CALCIUM 9.3 8.5-10.5 mg/dL LAB TP(LOINC) TOTAL PROTEIN 7.1 6.0-8.0 g/dL LAB ALB(LOINC) ALBUMIN 3.8 3.2-5.3 g/dL LAB ALK(LOINC) ALKALINE PHOSPHATASE 58 39-130 U/L LAB AST(LOINC) AST 34 0-41 U/L Result Comment: SPECIMEN HEM OLYZED, RESULTS INCREASED LAB ALT1(LOINC) ALT 23 0-31 U/L Result Comment: SPECIMEN HEM OLYZED, RESULTS INCREASED LAB TBIL(LOINC) BILIRUBIN,TOTAL 1.3 High 0.3-1.2 mg/d L Result Comment: RESULTS QUES TIONABLE DUE TO HEMOLYSIS LAB EGFR(LOINC) eGFR (CKD-EPI) NON-RACE DEPENDENT >90 >59 ml/min/1 .73sq.m Result Comment: Reported eGFR is based on the CKD-EPI 2020 equation that does not use a race coefficient. Performed By: #### CHEYENNE, CMP , 59169-9, 63475-3 #### [facility] ([id number]) [address] [place] [address] TROPONIN I, HIGH SENSITIVITY Collected: 10:32 AM Status: COMPLETED Source: [facility] TYPE CODE TESTS RESULT OUT OF RANGE REFERENCE UNITS LAB TNIHS(LOINC) TROPONIN I, HIGH SENSITIVITY 6 <16 ng/L Performed By: #### CHEYENNE, JAYSON , 31769-2, 51738-5 #### [facility] ([id number]) [address] [place] [address] BRN NATRIURETIC PEP Collected: 10/30/2024 10:32 AM Status: COMPLETED Source: [facility] TYPE CODE TESTS RESULT OUT OF RANGE REFERENCE UNITS LAB BNP(LOINC) BRN NATRIURETIC PEP 105 High <100.0 pg/mL Performed By: #### CHEYENNE, CMP , 12147-2, 57586-1 #### [facility] ([id number]) [address] [place] [address] DRUG SCR, ABUSE, UR Collected: 10/25/2024 11:24 AM S tatus: F Source: [facility] TYPE CODE TESTS RESULT OUT OF RANGE REFERENCE UNITS LAB AMPH(LOINC) Amphetamine(s),U r NEGATIVE NEG Result Comment: Cutoff: 1000 ng/mL LAB MAGDALENE(LOINC) Barbiturate(s),U r NEGATIVE NEG Result Comment: Cutoff: 200 ng/ml LAB DAVID(LOINC) Benzodiazepine(s ) NEGATIVE NEG Result Comment: Cutoff: 200 ng/ml LAB BE(LOINC) Cocaine Metabolite NEGATIVE NEG Result Comment: Cutoff: 300 ng/ml LAB METH(LOINC) Methadone NEGATIVE NEG Result Comment: Cutoff: 300 ng/ml LAB OPIA(LOINC) Opiate(s), Ur NEGATIVE NEG Result Comment: Cutoff: 300 ng/ml Note: The Opiate screen is not intended to detect Oxycodone. LAB PCP(LOINC) Phencyclidine, Ur NEGATIVE NEG Result Comment: Cutoff: 25 n g/ml LAB THC(LOINC) Cannabinoid(s),U r NEGATIVE NEG Result Comment: Cutoff: 50 n g/ml LAB UOXY(LOINC) Oxycodone, Urine NEGATIVE NEG Result Comment: Cutoff: 100 ng/ml LAB UFENT(LOINC) Fentanyl, Urine NEGATIVE NEG Result Comment: Cutoff: 5 ng /ml LAB BUPREN(LOINC) Buprenorphrine, Ur NEGATIVE NEG Result Comment: Cutoff: 5 ng /ml LAB DAUII(LOINC) Interpretive Info This method is a screening test to detect only these drug classes as part of a Result Comment: medical work up. Confirmatory testing by another method should be ordered if clinically indicated. Performed By: #### VALERIE #### [facility] [address] [place] [address] [place] [address] Talent Specialist: Bennie Odonnell MD GLUCOSE, WHOLE BLOOD Collected: 10/25/2024 9:22 AM S tatus: F Source: [facility] TYPE CODE TESTS RESULT OUT OF RANGE REFERENCE UNITS LAB FSGLU(LOINC) Glucose, Whole Blood 194 High 74-100 mg/dL TROPONIN Collected: 10/25/2024 8:50 AM Status: F Source: [facility] TYPE CODE TESTS RESULT OUT OF RANGE REFERENCE UNITS LAB HSTROP(LOINC) Troponin, High Sens 31 High 0-14 ng/L Result Comment: High Sensiti vity Troponin values cannot be compared with other Troponin methodologies. Performed By: #### TROPI ### # [facility] [address] [place] [address] [place] [address] Talent Specialist: Bennie Odonnell MD XR CHEST (SINGLE VIEW FRONTAL) Observed: 10/25/2024 8:21 AM Status: F Source: [facility] EXAMINATION: ONE XRAY VIEW OF THE CHEST 10/25/2024 7:57 am COMPARISON: None. HISTORY: ORDERING SYSTEM PROVIDED HISTORY: rapid heart rate TECHNOLOGIST PROVIDED HISTORY: rapid heart rate FINDINGS: There is no acute consolidation or effusion. There is no pneumothorax. The mediastinal structures are unremarkable. The upper abdomen is unremarkable. The extrathoracic soft tissues are unremarkable. There is no acute osseous abnormality. IMPRESSION: No acute cardiopulmonary process. Interpreted by: Miguel Dyer MD Signed by: Miguel Dyer MD 10/25/24 Final result CBC WITH DIFF Collected: 10/25/2024 7:34 AM Status: F Source: [facility] TYPE CODE TESTS RESULT OUT OF RANGE REFERENCE UNITS LAB WBC(LOINC) WBC Count 7.1 3.5-11.3 k/uL LAB RBC(LOINC) RBC Count 4.51 3.95-5.11 m/uL LAB HGB(LOINC) Hemoglobin 13.4 11.9-15.1 g/dL LAB HCT(LOINC) Hematocrit 40.0 36.3-47.1 % LAB MCV(LOINC) MCV 88.7 82.6-102.9 fL LAB MCH(LOINC) MCH 29.7 25.2-33.5 pg LAB MCHC(LOINC) MCHC 33.5 28.4-34.8 g/dL LAB RDW(LOINC) RDW 14.3 11.8-14.4 % LAB PLT(LOINC) Platelet Count See Reflexed IPF Result 138-453 k/uL LAB PLTFL(LOINC) Platelet, Fluoresc. 243 138-453 k/uL LAB IPLTF(LOINC) PLT, Immature Fract. 1.2 1.1-10.3 % LAB NRBCS(LOINC) NRBC Automated 0.0 0.0 per 100 WBC LAB SEG(LOINC) Neutrophil (Seg) 61 36-65 % LAB LYM(LOINC) Lymphocyte 26 24-43 % LAB MON(LOINC) Monocyte 11 3-12 % LAB EO(LOINC) Eosinophil 2 1-4 % LAB BASO(LOINC) Basophil 0 0-2 % LAB IGRAN(LOINC) Immature Granulocyte 0 0 % LAB ASEG(LOINC) Abs.Neutrophil (Seg) 4.27 1.50-8.10 k/uL LAB ALYM(LOINC) Abs. Lymph 1.81 1.10-3.70 k/uL LAB AMONO(LOINC) Abs. Monocyte 0.80 0.10-1.20 k/u L LAB AEO(LOINC) Abs. Eosinophil 0.12 0.00-0.44 k/u L LAB ABASO(LOINC) Abs. Basophil 0.03 0.00-0.20 k/u L LAB AIGRAN(LOINC) Abs.Imm.Granulo cyte <0.03 0.00-0.30 k/uL Performed By: #### CDP, TROP I, MG, CP #### [facility] [address] [place] [address] Talent Specialist: Bennie Odonnell MD COMP METABOLIC PROF Collected: 10/25/19 25 7:34 AM Status: F Source: [facility] TYPE CODE TESTS RESULT OUT OF RANGE REFERENCE UNITS LAB NA(LOINC) NA (Sodium) 140 136-145 mmol/L LAB K(LOINC) K (Potassium) 3.9 3.7-5.3 mmol/L LAB CL(LOINC) Chloride 103 98-107 mmol/L LAB HCO(LOINC) CO2 25 20-31 mmol/L LAB GAP(LOINC) Anion Gap 12 9-16 mmol/L LAB GLU(LOINC) Glucose 171 High 74-99 mg/dL LAB BUN(LOINC) BUN (Urea N) 27 High 8-23 mg/dL LAB CRE(LOINC) Creatinine 0.6 0.50-0.90 mg/dL LAB EGFR(LOINC) eGFR >90 >60 mL/min/1. 73m2 Result Comment: These results are not intended for use in patients <18 years of age. eGFR results are calculated without a race factor using the 2020 CKD-EPI equation. Careful clinical correlation is recommended, particularly when comparing to results calculated using previous equations. The CKD-EPI equation is less accurate in patients with extremes of muscle mass, extra-renal metabolism of creatine, excessive creatine ingestion, or following therapy that affects renal tubular secretion. LAB BUNCRE(LOINC) BUN/CRE Ratio 45 High 9-20 LAB CA(LOINC) Calcium 10.1 8.6-10.4 mg/dL LAB TP(LOINC) Protein, Total 7.7 6.6-8.7 g/dL LAB ALB(LOINC) Albumin 4.3 3.5-5.2 g/dL LAB AG(LOINC) Albumin/Glob Ratio 1.3 1.0-2.5 LAB TBIL(LOINC) Bilirubin, Total 0.7 0.00-1.20 mg/dL LAB ALP(LOINC) Alkaline Phos 100 35-104 U/L LAB ALT(LOINC) ALT 26 10-35 U/L LAB AST(LOINC) AST 25 10-35 U/L Performed By: #### CDP, TROP I, MG, CP #### [facility] [address] [place] [address] [place] [address] Talent Specialist: Bennie Odonnell MD MAGNESIUM Collected: 7:34 AM Status: F Source: [facility] TYPE CODE TESTS RESULT OUT OF RANGE REFERENCE UNITS LAB MG(LOINC) Magnesium 2.0 1.6-2.4 mg/dL Performed By: #### CDP, TROP I, MG, CP #### [facility] [address] [place] [address] [place], [place] [id number] Talent Specialist: Bennie Odonnell MD TROPONIN Collected: 10/25/2024 7:34 AM Status: F Source: [facility] TYPE CODE TESTS RESULT OUT OF RANGE REFERENCE UNITS LAB HSTROP(LOINC) Troponin, High Sens 33 High 0-14 ng/L Result Comment: High Sensiti vity Troponin values cannot be compared with other Troponin methodologies. Performed By: #### CDP, TROP I, MG, CP #### [address] [place], [place] [id number] Talent Specialist: Bennie Odonnell MD THYROID STIM. HORM. Collected: 10/25/2024 7:[address] atus: F Source: [facility] TYPE CODE TESTS RESULT OUT OF RANGE REFERENCE UNITS LAB TSH(LOINC) Thyroid Stim. Horm. 0.79 0.27-4.20 uIU/mL Performed By: #### TSH #### [facility] [address] [place] [address] [place] [address] Talent Specialist: Bennie Odonnell MD TYPE + SCREEN Observed: 10/05/2024 12:07 PM Status: F Source: [facility] Sample Expiration 10/28/2024 ,2359 Arm Band Number [id number] ABO/Rh(D) O NEGATIVE Antibody Screen NEGATIVE Performed By: #### TYS #### [facility] [address] [place] [address] Talent Specialist: Bennie Odonnell MD CBC WITH DIFF Collected: 10/05/2024 12:07 PM Status: F Source: [facility] TYPE CODE TESTS RESULT OUT OF RANGE REFERENCE UNITS LAB WBC(LOINC) WBC Count 7.8 3.5-11.3 k/uL LAB RBC(LOINC) RBC Count 4.55 3.95-5.11 m/uL LAB HGB(LOINC) Hemoglobin 13.3 11.9-15.1 g/dL LAB HCT(LOINC) Hematocrit 40.8 36.3-47.1 % LAB MCV(LOINC) MCV 89.7 82.6-102.9 fL LAB MCH(LOINC) MCH 29.2 25.2-33.5 pg LAB MCHC(LOINC) MCHC 32.6 28.4-34.8 g/dL LAB RDW(LOINC) RDW 14.3 11.8-14.4 % LAB PLT(LOINC) Platelet Count 303 138-453 k/uL LAB MPVX(LOINC) MPV 9.5 8.1-13.5 fL LAB NRBCS(LOINC) NRBC Automated 0.0 0.0 per 100 WBC LAB SEG(LOINC) Neutrophil (Seg) 63 36-65 % LAB LYM(LOINC) Lymphocyte 26 24-43 % LAB MON(LOINC) Monocyte 9 3-12 % LAB EO(LOINC) Eosinophil 1 1-4 % LAB BASO(LOINC) Basophil 1 0-2 % LAB IGRAN(LOINC) Immature Granulocyte 0 0 % LAB ASEG(LOINC) Abs.Neutrophil (Seg) 4.94 1.50-8.10 k/uL LAB ALYM(LOINC) Abs. Lymph 2.01 1.10-3.70 k/uL LAB AMONO(LOINC) Abs. Monocyte 0.68 0.10-1.20 k/u L LAB AEO(LOINC) Abs. Eosinophil 0.05 0.00-0.44 k/u L LAB ABASO(LOINC) Abs. Basophil 0.04 0.00-0.20 k/u L LAB AIGRAN(LOINC) Abs.Imm.Granulo cyte 0.03 0.00-0.30 k/uL Performed By: #### VLAD, NORM #### [facility] [address] [place] [address] [place] [address] Talent Specialist: Bennie Odonnell MD BASIC METABOLIC PROF Collected: 024 12:07 PM Status: F Source: [facility] TYPE CODE TESTS RESULT OUT OF RANGE REFERENCE UNITS LAB NA(LOINC) NA (Sodium) 139 136-145 mmol/L LAB K(LOINC) K (Potassium) 4.3 3.7-5.3 mmol/L LAB CL(LOINC) Chloride 102 98-107 mmol/L LAB HCO(LOINC) CO2 28 20-31 mmol/L LAB GAP(LOINC) Anion Gap 9 9-16 mmol/L LAB GLU(LOINC) Glucose 165 High 74-99 mg/dL LAB BUN(LOINC) BUN (Urea N) 18 8-23 mg/dL LAB CRE(LOINC) Creatinine 0.6 0.50-0.90 mg/dL LAB EGFR(LOINC) eGFR >90 >60 mL/min/1. 73m2 Result Comment: These results are not intended for use in patients <18 years of age. eGFR results are calculated without a race factor using the 2020 CKD-EPI equation. Careful clinical correlation is recommended, particularly when comparing to results calculated using previous equations. The CKD-EPI equation is less accurate in patients with extremes of muscle mass, extra-renal metabolism of creatine, excessive creatine ingestion, or following therapy that affects renal tubular secretion. LAB BUNCRE(LOINC) BUN/CRE Ratio 30 High 9-20 LAB CA(LOINC) Calcium 10.0 8.6-10.4 mg/dL Performed By: #### VLAD, NORM #### [address] [place] [address] Talent Specialist: Bennie Odonnell MD MRSA, DNA, NASAL Collected: 4 12:07 PM Status: F Source: [facility] TYPE CODE TESTS RESULT OUT OF RANGE REFERENCE UNITS LAB MRSASC(LOINC) Specimen Description .NASAL SWAB LAB MRSARE(LOINC) MRSA, DNA, Nasal NEGATIVE NEG Result Comment: NEGATIVE: MR SA DNA not detected by nucleic acid amplification. Results should be used as an adjunct to nosocomial control efforts to identify patients needing enhanced precautions. The test is not intended to identify patients with staphylococcal infections. Results should not be used to guide or monitor treatment for MRSA infections. Performed By: #### MRSANO ## ## [facility] [address] [place] [address] Talent Specialist: Dallas Burton MD [facility] [address] [place] [address] Talent Specialist: Bennie Odonnell MD MAMM SCREENING BILATERAL W CAD Observed: 09/30/2024 2:16 PM Status: COMPLETED Source: [facility] MAMM SCREENING BILATERAL W C AD MARI JAMISON 1950 [id number] EXAM: MAMM SCREENING BILATERAL W CAD, 09/30/2024 2:16 PM CLINICAL INDICATIONS: Screening, Encounter for screening mammogram for malignant neoplasm of breast COMPARISON: Multiple prior mammograms were viewed for comparison dating back to 03/15/2020 TECHNIQUE: Bilateral digital tomosynthesis MLO and CC views of the breasts were obtained, with creation of synthetic 2D views. Computer aided detection was utilized. FINDINGS: The breasts are almost entirely fatty. There are no suspicious masses, calcifications, or areas of architectural distortion. IMPRESSION: No mammographic evidence of malignancy. BI-RADS: BI-RADS 1 - Negative RECOMMENDATION: Routine screening mammogram in 1 year. RISK ASSESSMENT: TC Lifetime risk: 2.6%. The patient's reported personal and family medical history was used calculate their Tyrer-Cuzick lifetime risk of malignancy. Scores less than 20% are not considered high risk per ACR guidelines and patient should continue with the above recommendation. Finalized by Carol Zazueta MD on 10/01/2024 12:06 PM 1 a MAMM 1 YR XR CHEST 2 VWS Observed: 09/19/2024 12:00 PM Status: COMPLETED Source: [facility] XR CHEST 2 VWS XR CHEST 2 VWS INDICATION: cough COMPARISON: 07/27/2024 FINDINGS: Normal cardiomediastinal silhouette. Slight hyperinflation. No focal consolidation, effusion, or pneumothorax. Degenerative changes of the spine and shoulders. IMPRESSION: Hyperinflation. No acute cardio pelvic process otherwise. Finalized by Thomas Abreu MD on 09/19/2024 12:10 PM SARS/FLU A+B/RSV BY NAAT/MOLECULAR Observed: 09/01/2024 2:10 PM Status: COMPLETED Source: [facility] FLU A PCR Negative (qualifier value) FLU B PCR Negative (qualifier value) RSV by PCR Negative (qualifier value) SARS CoV 2 Detected (qualifier value) NOTE The Xpert Xpress SARS-CoV-2/Flu/RSV [...] operators who are performing tests using either [employer] or [employer] systems and is limited to laboratories that [...] information. An Invalid result may occur with specimen-associated inhibition unable to be resolved with specimen repeat. Fact Sheet for Healthcare Providers: https://www.fda.gov/media/257286/download Fact Sheet for Patients: https://www.fda.gov/media/449956/download Performed By: #### COVFLR ## ## [facility] ([id number]) [address] [place] [address], [place] [address] CYTOLOGY REPORT Observed: 08/19/2024 12:00 AM Status: F Source: [facility] (NOTE) Path Number: [id number] DIAGNOSIS Imaged ThinPrep Pap - Vaginal (1 monolayer slide): Specimen Adequacy: Satisfactory for evaluation. Descriptive Diagnosis: Negative for intraepithelial lesion or malignancy. Cytotech Screener: EY Electronically Signed Out Alber BECK(ASCP) ey/09/07/2024 Source of Specimen: A: Imaged ThinPrep Pap - Vaginal (1 monolayer slide) HPV Reflex?......................HPV if Abnormal Clinical History TAHBSO Z01.419 Routine manager package exam without abnormal findings Processing Lab: [address] [address] Interpretation performed at [address] [address] This Pap Test has been evaluated with the assistance of the [employer] Pap Test Imaging System. The Pap smear is a screening test primarily for squamous epithelial lesions, which is subject to both false negative and false positive results. Your patient should be reminded to consult you immediately if she experiences any suspicious signs or symptoms, regardless of her Pap smear result. GYNECOLOGIC CYTOLOGY REPORT Patient Name: MARI JAMISON [facility] Rec: [id number] [facility] [employer] [facility] ANATOMIC PATHOLOGY [address] [place] [address]. [place], [place] [id number] CT ABDOMEN AND PELVIS WO CONT Observed: 07/27/2024 3:07 PM Status: COMPLETED Source: [facility] CT ABDOMEN AND PELVIS WO CON T CT ABDOMEN AND PELVIS WO CONT 07/27/2024 3:07 PM INDICATION: Abdominal wall hernia, hernia suspected, abdominal pain COMPARISON: CT abdomen and pelvis with contrast 07/10/2023, MR abdomen 04/17/2021 TECHNIQUE: CT abdomen and pelvis was performed without intravenous contrast. Multiplanar reformatted images were generated and reviewed. Automated exposure control was utilized. All CT scans at this facility use dose modulation, iterative reconstruction, and/or weight based dosing when appropriate to reduce radiation dose to as low as reasonably achievable. FINDINGS: Evaluation of the solid viscera and vascular structures are compromised without the use of IV contrast. Lines/Tubes/Devices: None. Lower Thorax: Bibasilar subsegmental atelectasis. Mild coronary artery calcifications. Hepatobiliary: Noncirrhotic liver morphology. No focal hepatic lesion. Status post cholecystectomy. No biliary dilation. Spleen: No splenomegaly. Pancreas: No pancreatic ductal dilatation. Adrenal Glands: An incidental 1.6 cm nodule is seen in the left adrenal gland, with low CT density (<10 HU). Urinary: Right renal lesion measures 3.2 cm unchanged in size and previously characterized as hemorrhagic/proteinaceous cyst on MR abdomen 04/17/2021. Simple right renal cyst, no further dedicated follow-up necessary. No urinary bladder wall thickening. Vascular: Nonaneurysmal, mildly atherosclerotic abdominal aorta. Body Wall: No hernias or hematomas. Ventral abdominal wall postsurgical changes. Lymph Nodes: No abdominopelvic lymphadenopathy. Gastrointestinal Tract: Small hiatal hernia. No bowel dilatation or surrounding inflammatory changes. No appendiceal wall thickening or periappendiceal inflammation. Peritoneum: No pneumoperitoneum. No free abdominal fluid. Pelvis: Streak artifact from hip prosthesis compromises pelvic evaluation. Within these limitations: No free pelvic fluid. Status post hysterectomy. Skeletal: Grade 1 anterolisthesis L4 on L5. Left hip prosthesis. Multilevel lumbosacral spine degenerative changes. IMPRESSION: * No abdominal wall hernia. Ventral abdominal wall postsurgical changes. * Small hiatal hernia. * Left adrenal adenoma measures 1.6 cm. Consider biochemical assays to determine functional status and exclude pheochromocytoma. Recommend no further imaging evaluation. Approved by Resident: Ebenezer Tracey MD on 07/27/2024 3:45 PM Mac Doyle MD have personally reviewed the image(s) and agree with and/or edited the report Finalized by Mac Arreola MD on 07/28/2024 8:16 AM XR CHEST 2 VWS Observed: 07/27/2024 3:02 PM Status: COMPLETED Source: [facility] XR CHEST 2 VWS HISTORY: A 74 year old female with the history of the preoperative examination. EXAM/TECHNIQUE: CHEST: PA and lateral views COMPARISON: Comparison is made with the chest radiographs of 03/02/2024. FINDINGS: Both lungs and costophrenic angles are clear. There is no evidence of pulmonary infiltrate or acute pulmonary pathology. The cardiac silhouette is within normal limits. The trachea is in midline. The mediastinum is otherwise unremarkable. The hemidiaphragms are normal in position. The bony rib cage is intact. There are degenerative changes in the thoracolumbar spine. IMPRESSION: * No evidence of pulmonary infiltrate, acute pulmonary pathology or significant interval change. Finalized by Jair Sparks MD on 07/27/2024 5:20 PM APTT Collected: 07/27/2024 2:18 PM S tatus: COMPLETED Source: [facility] TYPE CODE TESTS RESULT OUT OF RANGE REFERENCE UNITS LAB PTT(LOINC) APTT 30 26-37 sec Result Comment: NEW REFERENC E RANGE Performed By: #### [id number], PINR #### [facility] ([id number]) [address] [place] [address] #### BMP, HA1C, CBCA, 97051-4 #### [facility] ([id number]) [address] [facility], [address] [place] [address] PROTIME AND INR Collected: 07/27/2024 2:18 PM Status: COMPLETED Source: [facility] TYPE CODE TESTS RESULT OUT OF RANGE REFERENCE UNITS LAB PROX(LOINC) PROTIME 11.9 9.8-13.2 sec Result Comment: NEW REFERENC E RANGE LAB INR(LOINC) INR 1.0 0.8-1.1 Performed By: #### [id number], PINR #### [facility] ([id number]) [address] [place] [address] #### BMP, HA1C, CBCA, 49769-4 #### [facility] ([id number]) [address] [place] [address], [address] [place] [address] BASIC METABOLIC PANL Collected: 07/27/2024 2:18 PM Status: COMPLETED Source: [facility] TYPE CODE TESTS RESULT OUT OF RANGE REFERENCE UNITS LAB NA(LOINC) SODIUM 138 134-146 mmol/L LAB K(LOINC) POTASSIUM 4.2 3.5-5.0 mmol/L LAB CL(LOINC) CHLORIDE 101 98-109 mmol/L LAB CO2(LOINC) CARBON DIOXIDE 27 22-32 mmol/L LAB AGAP(LOINC) ANION GAP 10 5-15 mmol/L LAB BUN(LOINC) BLOOD UREA NITROGEN 22 5-27 mg/dL LAB CRET(LOINC) CREATININE 0.73 0.40-1.00 mg/dL Result Comment: METHOD TRACE ABLE TO IDMS STANDARD LAB GLU(LOINC) GLUCOSE 223 High 65-99 mg/dL LAB CA(LOINC) CALCIUM 9.8 8.5-10.5 mg/dL LAB EGFR(LOINC) eGFR (CKD-EPI) NON-RACE DEPENDENT 86 >59 ml/min/1. 73sq.m Result Comment: Reported eGFR is based on the CKD-EPI 2020 equation that does not use a race coefficient. Performed By: #### [id number], PINR #### [facility] ([id number]) [address] [place] [address], [place] [address] #### BMP, HA1C, CBCA, 64643-6 #### [facility] ([id number]) [address] [place] [address], [facility] [address] [place] [address] HGB A1C (GLYCO-HGB) Collected: 07/27/2024 2:18 PM Status: COMPLETED Source: [facility] TYPE CODE TESTS RESULT OUT OF RANGE REFERENCE UNITS LAB HBA1C(LOINC) HEMOGLOBIN A1C 9.0 High 4.4-5.6 % Result Comment: NOTE ADA Guidelines Result HgbA1c Normal : less than 5.7 % Prediabetes : 5.7 % to 6.4 % Diabetes : > 6.4 % Use with caution in patients with abnormal hemoglobin variants as the half-life of red blood cells and in vivo glycation rates are affected. LAB EAG(LOINC) AVERAGE GLUCOSE 212 mg/dL Performed By: #### 21055-2, PINR #### [facility] ([id number]) [address] [facility], [place] [address] #### BMP, HA1C, CBCA, 63232-2 #### [facility] ([id number]) [address] [facility] [facility], [address] [place] [address] CBC AND AUTO DIFF Collected: 07/27/2024 2:18 PM Status: COMPLETED Source: [facility] TYPE CODE TESTS RESULT OUT OF RANGE REFERENCE UNITS LAB WBC(LOINC) WBC COUNT 5.7 4.0-11.0 X10E9/L LAB RBC(LOINC) RBC COUNT 4.34 3.80-5.20 X10E12/L LAB HGB(LOINC) HEMOGLOBIN 12.9 11.7-15.5 g/dL LAB HCT(LOINC) HEMATOCRIT 38.2 35-47 % LAB MCV(LOINC) MCV 88 80-100 fL LAB MCH(LOINC) MCH 29.7 27-34 pg LAB MCHC(LOINC) MCHC 33.8 32-36 g/dL LAB RDW(LOINC) RDW 13.1 11.5-15.0 % LAB PLTC(LOINC) PLATELET COUNT 239 150-450 X10E9 /L LAB MPV(LOINC) MPV 8.5 7-12 fL LAB NEUT(LOINC) % NEUTROPHILS 55.5 % LAB LYMP(LOINC) % LYMPHOCYTES 31.2 % LAB MONO(LOINC) % MONOCYTES 10.3 % LAB EOS(LOINC) % EOSINOPHILS 2.1 % LAB BASO(LOINC) % BASOPHILS 0.9 % LAB ANEUT(LOINC) ABSOLUTE NEUTROPHIL 3.2 1.5-6.6 X10E9/L LAB ALYMP(LOINC) ABSOLUTE LYMPHOCYTE 1.8 1.0-3.5 X10E9/L LAB AMONO(LOINC) ABSOLUTE MONOCYTE 0.6 0-0.9 X10E9/L LAB AEOS(LOINC) ABSOLUTE EOSINOPHIL 0.1 0.0-0.4 X10E9/L LAB ABASO(LOINC) ABSOLUTE BASOPHIL 0.0 0.0-0.2 X10E9/L Performed By: #### 10138-3, PINR #### [facility] ([id number]) [address] [place] [address] #### BMP, HA1C, CBCA, 10180-4 #### [facility] ([id number]) [address] [place] [address], [address] [place] [address] MRSA PCR NASAL Observed: 07/27/2024 2:18 PM Status: COMPLETED Source: [facility] MRSA PCR NASAL Negative (qualifier value) Performed By: #### [id number], PINR #### [facility] ([id number]) [address] [place] [address] #### NORM, HA1C, CBCA, 99914-5 #### [facility] ([id number]) [address] [place] [address], [facility] [address] [place] [address] CBC AND AUTO DIFF Collected: 07/11/2024 12:12 P M Status: COMPLETED Source: [facility] TYPE CODE TESTS RESULT OUT OF RANGE REFERENCE UNITS LAB WBC(LOINC) WBC COUNT 6.1 4.0-11.0 X10E9/L LAB RBC(LOINC) RBC COUNT 4.58 3.80-5.20 X10E12/L LAB HGB(LOINC) HEMOGLOBIN 13.1 11.7-15.5 g/dL LAB HCT(LOINC) HEMATOCRIT 40.1 35-47 % LAB MCV(LOINC) MCV 88 80-100 fL LAB MCH(LOINC) MCH 28.6 27-34 pg LAB MCHC(LOINC) MCHC 32.6 32-36 g/dL LAB RDW(LOINC) RDW 13.5 11.5-15.0 % LAB PLTC(LOINC) PLATELET COUNT 245 150-450 X10E9 /L LAB MPV(LOINC) MPV 8.5 7-12 fL LAB NEUT(LOINC) % NEUTROPHILS 51.8 % LAB LYMP(LOINC) % LYMPHOCYTES 35.5 % LAB MONO(LOINC) % MONOCYTES 8.9 % LAB EOS(LOINC) % EOSINOPHILS 2.6 % LAB BASO(LOINC) % BASOPHILS 1.2 % LAB ANEUT(LOINC) ABSOLUTE NEUTROPHIL 3.2 1.5-6.6 X10E9/L LAB ALYMP(LOINC) ABSOLUTE LYMPHOCYTE 2.2 1.0-3.5 X10E9/L LAB AMONO(LOINC) ABSOLUTE MONOCYTE 0.5 0-0.9 X10E9/L LAB AEOS(LOINC) ABSOLUTE EOSINOPHIL 0.2 0.0-0.4 X10E9/L LAB ABASO(LOINC) ABSOLUTE BASOPHIL 0.1 0.0-0.2 X10E9/L Performed By: #### CBCA, CMP , 94116-0 #### [facility] ([id number]) [address] [place] [address], [place] [address] COMPREHENSIVE METABOLIC PANEL Collected : 07/11/2024 12:12 PM Status: COMPLETED Source: [facility] TYPE CODE TESTS RESULT OUT OF RANGE REFERENCE UNITS LAB NA(LOINC) SODIUM 136 134-146 mmol/L LAB K(LOINC) POTASSIUM 4.4 3.5-5.0 mmol/L LAB CL(LOINC) CHLORIDE 104 98-109 mmol/L LAB CO2(LOINC) CARBON DIOXIDE 23 22-32 mmol/L LAB AGAP(LOINC) ANION GAP 9 5-15 mmol/L LAB BUN(LOINC) BLOOD UREA NITROGEN 26 5-27 mg/dL LAB CRET(LOINC) CREATININE 0.74 0.40-1.00 mg/dL Result Comment: METHOD TRACE ABLE TO IDMS STANDARD LAB GLU(LOINC) GLUCOSE 269 High 65-99 mg/dL LAB CA(LOINC) CALCIUM 9.9 8.5-10.5 mg/dL LAB TP(LOINC) TOTAL PROTEIN 7.9 6.0-8.0 g/dL LAB ALB(LOINC) ALBUMIN 4.2 3.2-5.3 g/dL LAB ALK(LOINC) ALKALINE PHOSPHATASE 72 39-130 U/L LAB AST(LOINC) AST 24 0-41 U/L LAB ALT1(LOINC) ALT 24 0-31 U/L LAB TBIL(LOINC) BILIRUBIN,TOTAL 0.5 0.3-1.2 mg/d L LAB EGFR(LOINC) eGFR (CKD-EPI) NON-RACE DEPENDENT 85 >59 ml/min/1 .73sq.m Result Comment: Reported eGFR is based on the CKD-EPI 2020 equation that does not use a race coefficient. Performed By: #### [facility] , [id number] #### [facility] [facility] ([id number]) [address] [place] [address] 16508 MAGNESIUM Collected: 07/11/2024 12:12 PM Status: COMPLETED Source: [facility] TYPE CODE TESTS RESULT OUT OF RANGE REFERENCE UNITS LAB MG(LOINC) MAGNESIUM 1.9 1.8-2.6 mg/dL Performed By: #### [facility] , 05439-2 #### [facility] ([id number]) [address] [place] [address] 01125 LACTATE W/REFLEX Collected: 12:12 PM Status: COMPLETED Source: [facility] TYPE CODE TESTS RESULT OUT OF RANGE REFERENCE UNITS LAB LACTS(LOINC) LACTATE W/REFLEX 2.0 0.4-2.0 mmol/L Result Comment: Result did not trigger repeat Lactate, re-order if needed. Performed By: #### 76229-2 # ### [facility] ([id number]) [address] [place] [address] 58703 DEVAUGHN FECAL OCCULT BLD Observed: 11:48 AM Status: COMPLETED Source: [facility] DEVAUGHN FECAL OCCULT BLD Negative (qualifier value) Performed By: #### 2335-8 ## ## [facility] ([id number]) [address] [place] [address] 57465 DEXA SCAN CENTRAL SKELETAL Observed: 01/2024 7:45 AM Status: COMPLETED Source: [facility] DEXA SCAN CENTRAL SKELETAL CLINICAL INFORMATION: Post-menopausal. , Post menopausal, [...] osteoporotic fracture, to reduce their fracture risk. Finalized by Javed Hager MD on 07/09/2024 2:02 PM MR LUMBAR SPINE WO CONT Observed: 2023 6:48 AM Status: C Source: [facility] MR LUMBAR SPINE WO CONT *ADDENDUM*Addendum: IMPRESSION: Second sentence in the findings section should read: Lumbar vertebral body heights and signal are normal. Alignment normal except for L4-5 and L5-S1 spondylolisthesis. Finalized by Ari Siegel MD on 07/09/2024 12:42 PM ALLERGIES DATE TYPE / CODE NAME / CODE REACTION SEVERITY SOURCE 03/02/2021 DRUG INGREDI~NON -CBORD/4195 00942(SNOME D CT) PERFLUTREN LIPID MICROSPHERES Low [facility] 03/15/2017 Drug Class/71335 1003(SNOMED CT) PENICILLINS Hives Med [facility] 03/15/2017 DRUG INGREDI~Harmony d/389682631 (SNOMED CT) HONEY Swelling High [facility] 03/15/2017 Drug Class~NON-C BORD/002323 003(SNOMED CT) PENICILLINS Hives~Nausea Med [facility] FOOD/351282 000(SNOMED CT) HONEY Swelling~Nausea & vomiting Moderate (Severity Modifier) (Qualifier Value) [facility] FOOD/762749 000(SNOMED CT) [employer] MOUTH SORES Moderate (Severity Modifier) (Qualifier Value) [facility] DRUG/093154 003(SNOMED CT) penicillins SWELLING Moderate (Severity Modifier) (Qualifier Value) [facility] ENCOUNTERS ADMIT/DISCHARGE ACCOUNT NUMBER ADMITTING ENCOUNTER CLASS LOCATION SOURCE 06/20/2025/ 025 [id number] Emergency Building:PFM_E DRoom: 11Bed: 11 [facility] 05/02/2025/ 025 [id number] Ambulatory Building:[facility]_M RI [facility] 04/26/2025/ 025 [id number] Ambulatory Building:[facility] 03/24/2025/ 025 [id number] Ambulatory Building:[facility]_C T [facility] 03/24/2025/ 025 [id number] Ambulatory Building:PF_X R [facility] 03/17/2025 [id number] Ambulatory Building: M_L AB [facility] 02/24/2025/ 025 [id number] Emergency Building:PFM_E DRoom: 2Bed: 02 [facility] 01/31/2025/ 025 [id number] Emergency Building:PFM_E DRoom: 4Bed: 04 [facility] 12/29/2024/ 025 [id number] Juan Casey MD Ambulatory [facility] ng:BV 6NURoom: [id number]: 1 [facility] 12/20/2024/ 025 [id number] Ambulatory [facility] ng:BV [facility] 12/15/2024 [id number] Ambulatory [facility] ng:BV [facility] 12/14/2024/ 025 [id number] Emergency Building:PFM_E DRoom: 9Bed: 09 [facility] 12/14/2024/ 025 [id number] [facility] ng:BV Lab OP [facility] 11/29/2024/ 025 [id number] Emergency Building:PFM_E DRoom: H5Bed: H5 [facility] 11/18/2024/ 025 [id number] Ambulatory Building:PFM_L AB [facility] 11/12/2024/ 025 [id number] Emergency Building:PFM_E DRoom: 2Bed: 02 [facility] 11/06/2024/ 025 [id number] Emergency Building:PFM_E DRoom: 2Bed: 02 [facility] 11/05/2024/ 025 [id number] Ambulatory Building:PFM_C V [facility] 11/04/2024/ 025 [id number] Ambulatory Buildin [facility] 10/30/2024/ 025 [id number] Emergency Building:PFM_E DRoom: 11Bed: 11 [facility] 10/28/2024/ 025 [id number] Ambulatory Building:PF_C V [facility] 10/25/2024/ 025 [id number] Emergency Building:TEDRo om: OTFBed: ELIZABETH [facility] 10/25/2024/ 025 [id number] JUAN CASEY Ambulatory Building:TORRo om: ORPOOLBed: NONE [facility] 10/05/2024/ 025 [id number] JUAN CASEY [facility] 10/04/2024/ 024 [id number] Amb[address] PM [facility] ng:PM [facility] 09/30/2024/ 024 [id number] Ambulatory Building:PFM_M AMM [facility] 09/19/2024/ 024 [id number] Emergency Building:PFM_E DRoom: H1Bed: H1 [facility] 09/01/2024/ 024 [id number] Emergency Building:PFM_E DRoom: 12Bed: 12 [facility] 08/26/2024/ 024 [id number] Ambulatory Buildin [facility] 08/19/2024/ 024 [id number] Ambulatory Building:[facility] 08/17/2024/ 024 [id number] Ambulatory Building:PFM_N M [facility] 08/17/2024/ 024 [id number] Ambulatory Building:PFM_N M [facility] 08/17/2024/ 024 [id number] Ambulatory Building:PFM_N M [facility] 08/10/2024/ 024 [id number] Ambulatory Buildin [facility] Ambulatory [facility] 08/09/2024/ 024 [id number] [facility] 07/27/2024/ 024 [id number] Ambulatory Building:PFM_X R [facility] 07/27/2024/ 024 [id number] Ambulatory Building:PFM_C T [facility] 07/27/2024/ 024 [id number] Ambulatory Building:PFM_C V [facility] 07/27/2024/ 024 [id number] Ambulatory Building:PFM_L AB [facility] 07/26/2024/ 024 [id number] Ambulatory PM [facility]:PM [facility] 07/18/2024/ 024 [id number] Emergency Building:PFM_E DRoom: 3Bed: 03 [facility] 07/11/2024/ 024 [id number] Emergency Building:PFM_E DRoom: 12Bed: 12 [facility] 07/09/2024/ 024 [id number] Ambulatory Building:PFM_D XR [facility] 07/09/2024/ 024 [id number] Ambulatory Building:PFM_M RI [facility] FUNCTIONAL STATUS No Functional Status Records Found EQUIPMENT No Equipment Records Found PAYERS ENCOUNTER GUARANTOR 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 SUBSCRIBER SOURCE 06/20/2025 MARI Dimas TAHLAIAGODOB: [address] [place] [address]Sbb: (HP) Primary Insurance:[facility] MEDICARE ADVANTAGEPolicy Number: [id number] Date:2023-10-06 MARI Dimas SANTIAGODOB: [id number] [place], [place] [address]Hqh: () [facility] 06/20/2025 Secondary Insurance:[facility] DENT COVERAGEPolicy Number: [id number] Date:2010-06-28 MARI Dimas SANTIAGODOB: [id number] [place], [place] [address]Ogm: (HP) [facility] 05/02/2025 MARI Dimas SANTIAGODOB: [address] [place] [address]Mmm: (HP) Primary Insurance:[facility] MEDICARE ADVANTAGEPolicy Number: [id number] Date:2023-10-06 MARI Dimas SANTIAGODOB: [id number] [place], [place] [address]Bmf: () [facility] 05/02/2025 Secondary Insurance:-DEPEN DENT COVERAGEPolicy Number: [id number] Date:2010-06-28 MARI Dimas SANTIAGODOB: [id number] [place], [place] [address]Tqx: (HP) [facility] 04/26/2025 MARI Dimas SANTIAGODOB: [address] [place], [place] [address]Mgq: (HP) Primary Insurance:[facility] MEDICAREPolicy Number: [id number] Date:4814-21-70[address], [place] [address]WN: MARI Dimas SANTIAGODOB: [id number] [place], [place] [address]Not: (HP) [facility] 04/26/2025 Secondary Insurance:[facility] Number: [id number] Date:4280-66-13[address] [place] [address]EM: MARI Dimas SANTIAGODOB: [id number] [place], [place] [address]Jei: (HP) [facility] 03/24/2025 MARI Dimas SANTIAGODOB: [address] [place] [address]Ovv: (HP) Primary Insurance:[employer] MEDICARE ADVANTAGEPolicy Number: [id number] Date:2023-10-06 MARI Dimas SANTIAGODOB: [id number] [place], [place] [address]Fzo: (HP) [facility] 03/24/2025 Secondary Insurance:-DEPEN DENT COVERAGEPolicy Number: [id number] Date:2010-06-28 MARI Dimas SANTIAGODOB: [id number] [place], [place] [address]Plh: (HP) [facility] 03/24/2025 MARI Dimas SANTIAGODOB: [address] [place], [place] [address]Lxb: (HP) Primary Insurance:[employer] MEDICARE ADVANTAGEPolicy Number: [id number] Date:2023-10-06 MARI Dimas SANTIAGODOB: [id number] [place], [place] [address]Puq: (HP) [facility] 03/24/2025 Secondary Insurance:-[employer] DENT COVERAGEPolicy Number: [id number] Date:2010-06-28 MARI Dimas SANTIAGODOB: [id number] [place], [place] [address]Rut: (HP) [facility] 03/17/2025 MARI Dimas SANTIAGODOB: [address] [place] [address]Mgf: (HP) Primary Insurance:[employer] MEDICARE ADVANTAGEPolicy Number: [id number] Date:2023-10-06 MARI Dimas SANTIAGODOB: [id number] [place], [place] [address]Ofu: (HP) [facility] 03/17/2025 Secondary Insurance:-[employer] DENT COVERAGEPolicy Number: [id number] Date:2010-06-28 MARI Dimas SANTIAGODOB: [id number] [place], [place] [address]Uwb: (HP) [facility] 02/24/2025 MARI Dimas SANTIAGODOB: [address] [place], [place] [address]Iex: (HP) Primary Insurance:[employer] MEDICARE ADVANTAGEPolicy Number: [id number] Date:2023-10-06 MARI A SANTIAGODOB: [id number] [place], [place] [address]Zxc: (HP) [facility] 02/24/2025 Secondary Insurance:-DEP[employer] DENT COVERAGEPolicy Number: [id number] Date:2010-06-28 MARI A SANTIAGODOB: [id number] [place], [place] [address]Rup: (HP) [facility] 01/31/2025 MARI A SANTIAGODOB: [address] [place] [address]Iuf: (HP) Primary Insurance:[employer] MEDICARE ADVANTAGEPolicy Number: [id number] Date:2023-10-06 MARI A SANTIAGODOB: [id number] [place], [place] [address]Aji: (HP) [facility] 01/31/2025 Secondary Insurance:-[employer] DENT COVERAGEPolicy Number: [id number] Date:2010-06-28 MARI A SANTIAGODOB: [id number] [place], [place] [address]Wus: (HP) [facility] 12/29/2024 [place] A SantiagoDOB: [place] [address]Inx: (HP) [facility] Number: Effective Date:4754-40-17Fzzm Name:ADÁN Collier [place], [place] [address]WN: Mari Dimas SantiagoDOB: [id number] [place] [address]Ned: (HP) (WP) [facility] 12/20/2024 Mari JamisonDOB: [place] [address]Bev: (HP) Primary Insurance:AnthemPolicy Number: Effective Date:6477-34-37Tpot Name:ADÁN O Nando [address], [place] [address]RF: Mari Dimas SantvalentegoDOB: 6651-05-28NSB[address] [place] [address]Pri: (HP) (WP) [facility] 12/15/2024 Mari JamisonDOB: [place] [address]Kcm: (HP) Primary Insurance:AnthemPolicy Number: Effective Date:7348-74-23Ykrz Name:ADÁN Col[place] [address], [place] [address]QX: Mari JamisonDOB: 1402-86-29YVA[address] [place] [address]Rob: (HP) (WP) [facility] 12/14/2024 MARI Dimas SANTEWELINADOB: [address] [place], [place] [address]Lqo: (HP) Primary Insurance:[employer] MEDICARE ADVANTAGEPolicy Number: [id number] Date:2023-10-06 MARI Dimas SANTIAGODOB: [id number] [place], [place] [address]Qur: (HP) [facility] 12/14/2024 Secondary Insurance:-[employer] DENT COVERAGEPolicy Number: [id number] Date:2010-06-28 MARI Dimas SANTIAGODOB: [id number] [place], [place] [address]Lxl: (HP) [facility] 12/14/2024 Mari Dimas SantiagoDOB: [place] [address]Kmp: (HP) [facility] Number: Effective Date:4100-61-01Nfwt Name:ADÁN Col[place] [address]39[place], [place] [address]PA: Mari Dimas SantiagoDOB: [id number] [place] [address]Mpu: (HP) (WP) [facility] 11/29/2024 MARI Dimas SANTIAGODOB: [address] [place] [address]Kca: (HP) Primary Insurance:[employer] MEDICARE ADVANTAGEPolicy Number: [id number] Date:2023-10-06 MARI Dimas SANTIAGODOB: [id number] [place], [place] [address]Rpz: (HP) [facility] 11/29/2024 Secondary Insurance:[facility] COVERAGEPolicy Number: [id number] Date:2010-06-28 MARI Dimas SANTIAGODOB: [id number] [place], [place] [address]Fdo: (HP) [facility] 11/18/2024 MARI Wing SANTIAGODOB: [address] [place], [place] [address]Wyw: (HP) Primary Insurance:[employer] MEDICARE ADVANTAGEPolicy Number: [id number] Date:2023-10-06 MARI Dimas SANTIAGODOB: [id number] [place] [address]Njs: (HP) [facility] 11/18/2024 Secondary Insurance:-[employer] DENT COVERAGEPolicy Number: [id number] Date:2010-06-28 MARI Dimas SANTIAGODOB: 0417-09-50GPQ[address] [place] [address]Ewu: (HP) [facility] 11/12/2024 MARI Dimas SANTIAGODOB: [address] [place], [place] [address]Ubc: (HP) Primary Insurance:[facility] MEDICARE ADVANTAGEPolicy Number: [id number] Date:2023-10-06 MARI Dimas SANTIAGODOB: [id number] [place], [place] [address]Jwh: (HP) [facility] 11/12/2024 Secondary Insurance:-DEPEN DENT COVERAGEPolicy Number: [id number] Date:2010-06-28 MARI Dimas SANTIAGODOB: [id number] [place], [place] [address]Umn: (HP) [facility] 11/06/2024 MARI Dimas SANTIAGODOB: [address] [place] [address]Qgz: (HP) Primary Insurance:[facility] MEDICARE ADVANTAGEPolicy Number: [id number] Date:2023-10-06 MARI Dimas SANTIAGODOB: [id number] [place], [place] [address]Kiw: () [facility] 11/06/2024 Secondary Insurance:-DEPEN DENT COVERAGEPolicy Number: [id number] Date:2010-06-28 MARI Dimas SANTIAGODOB: [id number] [place], [place] [address]Bur: (HP) [facility] 11/05/2024 MARI Wing SANTIAGODOB: [address] [place], [place] [address]Iqw: (HP) Primary Insurance:[employer] MEDICARE ADVANTAGEPolicy Number: [id number] Date:2023-10-06 MARI Dimas SANTIAGODOB: [id number] [place], [place] [address]Imq: (HP) [facility] 11/05/2024 Secondary Insurance:-DEPEN DENT COVERAGEPolicy Number: [id number] Date:2010-06-28 MARI Wing SANTIAGODOB: [id number] [place], [place] [address]Iln: (HP) [facility] 11/04/2024 MARI Wing SANTIAGODOB: [address] [place] [address]Fok: (HP) Primary Insurance:[employer] MEDICARE ADVANTAGEPolicy Number: [id number] Date:2023-10-06 MARI Dimas SANTIAGODOB: [id number] [place], [place] [address]Vvt: (HP) [facility] 11/04/2024 Secondary Insurance:-DEPEN DENT COVERAGEPolicy Number: [id number] Date:2010-06-28 MARI Wing SANTIAGODOB: [id number] [place], [place] [address]Obr: (HP) [facility] 10/30/2024 MARI Wing SANTIAGODOB: [address] [place], [place] [address]Bcx: (HP) Primary Insurance:[facility] MEDICARE ADVANTAGEPolicy Number: [id number] Date:2023-10-06 MARI Wing SANTIAGODOB: [id number] [place], [place] [address]Nbi: (HP) [facility] 10/30/2024 Secondary Insurance:-DEPEN DENT COVERAGEPolicy Number: [id number] Date:2010-06-28 MARI Dimas SANTIAGODOB: [id number] [place], [place] [address]Ypr: (HP) [facility] 10/28/2024 MARI Wing SANTIAGODOB: [address] [place], [place] [address]Odm: (HP) Primary Insurance:[facility] MEDICARE ADVANTAGEPolicy Number: [id number] Date:2023-10-06 MARI Dimas SANTIAGODOB: 4567-06-41CQU[address] [place], [place] [address]Usl: (HP) [facility] 10/28/2024 Secondary Insurance:-DEPEN DENT COVERAGEPolicy Number: [id number] Date:2010-06-28 MARI Dimas SANTIAGODOB: [id number] [place], [place] [address]Cag: (HP) [facility] 10/25/2024 MARI Wing SANTIAGODOB: [address] [place], [place] [address]Pxr: (HP) Primary Insurance:[facility] MEDICAREPolicy Number: [id number] Date:3078-27-87[address], [place] [address]AD: MARI Wing SANTIAGODOB: 5867-06-75UMY[address] [place], [place] [address]Ytm: (HP) [facility] 10/25/2024 MARI Wing SANTIAGODOB: [address] [place] [address]Nwq: (HP) Primary Insurance:[place] [facility] MEDICAREPolicy Number: [id number] Date:0845-86-56SZ [place]ANDO [id number] [place] [address]EJ: MARI Dimas SANTIAGODOB: 4122-13-82WSQ[address] [place], [place] [address]Tug: (HP) [facility] 10/05/2024 MARI Dimas SANTIAGODOB: [address] [place] [address]Zpl: (HP) Primary Insurance:[facility] MEDICAREPolicy Number: [id number] Date:2024-07-27 MARI Dimas SANTIAGODOB: [id number] [place], [place] [address]Wzs: (HP) [facility] 10/04/2024 Mari Wing SantiagoDOB: [address] [place] [address]Vgz: (HP) [facility] Number: Effective Date:2863-51-23Gigs Name:ADÁN Christina Nando [place]2239[place], [place] [address]IQ: Mari Dimas SantiagoDOB: 5257-58-89JAQ[address] [place] [address]Lig: (HP) [facility] 09/30/2024 MARI Dimas SANTIAGODOB: [address] [place] [address]Njj: (HP) Primary Insurance:[employer] MEDICARE ADVANTAGEPolicy Number: [id number] Date:2023-10-06 MARI A SANTIAGODOB: [id number] [place] [address]Etg: (HP) [facility] 09/30/2024 Secondary Insurance:-DEPEN DENT COVERAGEPolicy Number: [id number] Date:2010-06-28 MARI Dimas SANTIAGODOB: 4373-85-71EJH[address] [place], [place] [address]Glp: (HP) [facility] 09/19/2024 MARI Dimas SANTIAGODOB: [address] [place] [address]Lid: (HP) Primary Insurance:[employer] MEDICARE ADVANTAGEPolicy Number: [id number] Date:2023-10-06 MARI Dimas SANTIAGODOB: [id number] [place], [place] [address]Mrf: (HP) [facility] 09/19/2024 Secondary Insurance:-DEPEN DENT COVERAGEPolicy Number: [id number] Date:2010-06-28 MARI Dimas SANTIAGODOB: 4088-88-07EKH[address] [place], [place] [address]Qwh: (HP) [facility] 09/01/2024 MARI Dimas SANTIAGODOB: [address] [place] [address]Xgl: (HP) Primary Insurance:-DEPEN DENT COVERAGEPolicy Number: [id number] Date:2010-06-28 MARI Dimas SANTIAGODOB: [id number] [place], [place] [address]Ayp: (HP) [facility] 09/01/2024 Secondary Insurance:[employer] MEDICARE ADVANTAGEPolicy Number: [id number] Date:2023-10-06 MARI Dimas SANTIAGODOB: 2474-66-30BLC[address] [place], [place] [address]Pcj: (HP) [facility] 08/26/2024 MARI Dimas SANTIAGODOB: [address] [place] [address]Fsm: (HP) Primary Insurance:[employer] MEDICARE ADVANTAGEPolicy Number: [id number] Date:2023-10-06 MARI Dimas SANTIAGODOB: [id number] [place] [address]Vqi: (HP) [facility] 08/26/2024 Secondary Insurance:-DEPEN DENT COVERAGEPolicy Number: [id number] Date:2010-06-28 MARI Dimas SANTIAGODOB: [id number] [place] [address]Mpf: (HP) [facility] 08/19/2024 MARI Wing SANTIAGODOB: [address] [place] [address]Hgm: (HP) Primary Insurance:[facility] MEDICAREPolicy Number: [id number] Date:2024-07-27 MARI Dimas SANTIAGODOB: [id number] [place] [address]Ekq: (HP) [facility] 08/17/2024 MARI Wing SANTIAGODOB: [address] [place] [address]Gwg: (HP) Primary Insurance:-DEPEN DENT COVERAGEPolicy Number: [id number] Date:2010-06-28 MARI Dimas SANTIAGODOB: [id number] [place], [place] [address]Wkb: (HP) [facility] 08/17/2024 Secondary Insurance:[employer] MEDICARE ADVANTAGEPolicy Number: [id number] Date:2023-10-06 MARI Dimas SANTIAGODOB: [id number] [place], [place] [address]Bsm: (HP) [facility] 08/17/2024 MARI Dimas SANTIAGODOB: [address] [place], [place] [address]Dva: (HP) Primary Insurance:-DEPEN DENT COVERAGEPolicy Number: [id number] Date:2010-06-28 MARI Dimas SANTIAGODOB: [id number] [place], [place] [address]Xhq: (HP) [facility] 08/17/2024 Secondary Insurance:[facility] MEDICARE ADVANTAGEPolicy Number: [id number] Date:2023-10-06 MARI Dimas SANTIAGODOB: [id number] [place], [place] [address]Agu: (HP) [facility] 08/17/2024 MARI Dimas SANTIAGODOB: [address] [place], [place] [address]Yot: (HP) Primary Insurance:-DEPEN DENT COVERAGEPolicy Number: [id number] Date:2010-06-28 MARI Dimas SANTIAGODOB: [id number] [place], [place] [address]Qqk: (HP) [facility] 08/17/2024 Secondary Insurance:[facility] MEDICARE ADVANTAGEPolicy Number: [id number] Date:2023-10-06 MARI Dimas SANTIAGODOB: [id number] [place], [place] [address]Tqw: (HP) [facility] 08/10/2024 MARI Dimas SANTIAGODOB: [address] [place] [address]Sdx: (HP) Primary Insurance:[employer] MEDICARE ADVANTAGEPolicy Number: [id number] Date:2023-10-06 MARI Dimas SANTIAGODOB: [id number] [place], [place] [address]Cwx: (HP) [facility] 08/09/2024 Mari Dimas SantiagoDOB[address] [place] [place] [address]Opb: (HP) [facility] Number: Effective Date:[id number] Name:ADÁN Collier [id number], [place] [address]TI: Mari Dimas SantiagoDOB: [id number] [place] [place], [place] [address]Ltt: (HP) [facility] 07/27/2024 MARI Dimas SANTIAGODOB: [address] [place], [place] [address]Npc: (HP) Primary Insurance:[employer] MEDICARE ADVANTAGEPolicy Number: [id number] Date:2023-10-06 MARI Dimas SANTIAGODOB: [id number] [place], [place] [address]Fkn: (HP) [facility] 07/27/2024 MARI Dimas SANTIAGODOB: [address] [place] [address]Rab: (HP) Primary Insurance:[employer] MEDICARE ADVANTAGEPolicy Number: [id number] Date:2023-10-06 MARI Dimas SANTIAGODOB: [id number] [place], [place] [address]Gzg: (HP) [facility] 07/27/2024 MARI Dimas SANTIAGODOB: [address] [place] [address]Lnj: (HP) Primary Insurance:[employer] MEDICARE ADVANTAGEPolicy Number: [id number] Date:2023-10-06 MARI A SANTIAGODOB: [id number] [place] [address]Vpb: (HP) [facility] 07/27/2024 MARI A SANTIAGODOB: [address] [place] [address]Bgy: (HP) Primary Insurance:[facility] MEDICARE ADVANTAGEPolicy Number: [id number] Date:2023-10-06 MARI Dimas SANTIAGODOB: [id number] [place] [address]Xcm: (HP) [facility] 07/26/2024 Mari Wing SantiagoDOB: [address] [place] [place] [address]Nyp: (HP) [facility] Number: Effective Date:[id number] Name:ADÁN Collier [id number], [place] [address]XX: Mari Dimas SantiagoDOB: [id number] [place] [place], [place] [address]Feb: (HP) [facility] 07/18/2024 MARI Dimas SANTIAGODOB: [address] [place] [address]Aou: (HP) Primary Insurance:[facility] MEDICARE ADVANTAGEPolicy Number: [id number] Date:2023-10-06 MARI Dimas SANTIAGODOB: [id number] [place], [place] [address]Ing: (HP) [facility] 07/11/2024 MARI Dimas SANTIAGODOB: [address] [place], [place] [address]Nzp: (HP) Primary Insurance:[facility] MEDICARE [employer] Number: [id number] Date:2023-10-06 MARI Dimas SANTIAGODOB: [id number] [place], [place] [address]Dlk: (HP) [facility] 07/09/2024 MARI Dimas SANTIAGODOB: [address] [place], [place] [address]Ipe: (HP) Primary Insurance:[facility] MEDICARE [employer] Number: [id number] Date:2023-10-06 MARI Dimas SANTIAGODOB: [id number] [place], [place] [address]Lpv: (HP) [facility] 07/09/2024 MARI Dimas SANTIAGODOB: [address] [place], [place] [address]Nwk: (HP) Primary Insurance:[employer] MED[employer]ARE ADVANTAGEPolicy Number: [id number] Date:2023-10-06 MARI Dimas SANTIAGODOB: [id number] [place], [place] [address]Hbf: (HP) [facility] SOCIAL HISTORY No Social History Records Found FAMILY HISTORY No Family History Records Found ADVANCE DIRECTIVES No Advanced Directives Records Found INFORMATION SOURCE DATE CREATED AUTHOR AUTHOR'S DOMINGA MENDOZA 07/03/2025 PATRICIA
[2025-07-03 13:29] VITALS: BP 161/81; PULSE 81; TEMP 36.5; O2SAT 98; BMI 31.6
[2025-07-03] MEDS: KETOROLAC TROMETHAMINE 60 MG/2 ML VIAL IM (14:11)
--- NOTE | 2025-07-03 14:24 | ED_ITS ---
HPI HPI - General Adult General Chief complaint: Extremity Problem, Nontraumatic Stated complaint: LOWER EXTREMITY PAIN Time Seen by Provider: 07/03/25 13:48 Source: patient Mode of arrival: walk-in History of Present Illness HPI narrative: 75-year-old female presents for left knee pain. She gives no history of any specific injury but it has been hurting. She was seen at another emergency department a few days ago and had an x-ray. A copy of that report was obtained and it was negative. Additionally about 5 days ago she saw her orthopedist. No new injury. No other joint has been hurting. Related Data Home Medications ?Medication ?Instructions ?Recorded ?Confirmed carvedilol 25 mg tablet 25 mg PO BID 10/31/23 lisinopril 40 mg tablet 40 mg PO DAILY 10/31/2309/07 metformin 500 mg tablet 500 mg PO BID 10/31/2310/04 gabapentin 300 mg capsule mg 09/24/24 dulaglutide 0.75 mg/0.5 mL 0.75 mg subcut QWEEK 10/04/24 [facility] Previous Rx's ?Medication ?Instructions ?Recorded celecoxib 100 mg capsule (Celebrex) 100 mg PO DAILY 10 days #10 caps 08/02/24 oxybutynin chloride 5 mg tablet 5 mg PO QD 10 days #10 tabs 08/02/24 acetaminophen 300 mg-codeine 30 mg 1 tab PO Q6H PRN pa in 5 days #20 07/03/25 tablet tabs Allergies Allergy/AdvReac Type Severity Reaction Status Date / Time honey Allergy Severe Swelling Verified 10/04/24 10:51 of Lip/Tongue/Throat Penicillins Allergy Severe Swelling Verified 10/04/24 10:51 of Lip/Tongue/Throat Opioid HPI Opioid Management Most Recent Opioid Data: Last Pain Scale 10 10/04/24, 10:43 Last ORT Total Score 0 08/01/24, 18:40 Last ORT Risk Category Low Risk 08/01/24, 18:40 Review of Systems ROS Narrative A ten point review of systems is negative except as noted above. PFSH [facility] Medical History (Updated 07/03/25 @ 14:23 by Rashad Perez MD) Hypertension ?I10 - Essential (primary) hypertension (ICD-10) Osteoarthritis ?M19.90 - Unspecified osteoarthritis, unspecified site (ICD-10) TMJ (dislocation of temporomandibular joint) ?S03.00XA - Dislocation of jaw, unspecified side, initial encounter (ICD-10) Diabetes ?E11.9 - Type 2 diabetes mellitus without complications (ICD-10) Surgical History History of hip replacement, total ?Z96.649 - Presence of unspecified artificial hip joint (ICD-10) History of knee replacement ?Z96.659 - Presence of unspecified artificial knee joint (ICD-10) Family History Father Family history of hypertension Mother Family history of hypertension Social History Within the past year, how often did you have a drink containing alcohol: never Score interpretation: A score less than 3 is consistent with normal alcohol consumption. Smoking status: Never smoker Non-prescribed substance use: denies use Previous occupational history: retired Highest level of school completed/degree received: 10th grade Are you now , , , , never or living with a partner: Little interest or pleasure in doing things: not at all Feeling down, depressed, or hopeless: not at all Feel stressed/tense/nervous/anxious/difficulty sleeping: not at all Exam Narrative Exam Narrative: Nurses note and vital signs reviewed and patient is not hypoxic. General:The patient appears well and in no apparent distress. Patient is ending in a chair. Skin:Warm, dry, no pallor noted.There is no rash noted. Head:Normocephalic, atraumatic Eye: Normal conjunctiva, no drainage Ears, Nose, Mouth, and Throat: oral mucosa is moist. Nares patent. Cardiovascular:Regular Rate and Rhythm Respiratory:Patient is in no distress, no accessory muscle use, lungs are clear to auscultation, no wheezing, rales or rhonchi Back:non-tender GI: Left and nontender Musculoskeletal: Left knee is examined. There is old healed surgical scar from her knee replacement. No erythema bruise or rash or other skin defect present. The knee joint is stable. Neurological: Awake and alert Psychiatric:Cooperative Constitutional Vital Signs, click to edit/add: Last Vital Signs Temp 97.7 F 07/03/25 13:29 Pulse 81 07/03/25 13:29 Resp 16 07/03/25 13:29 BP 161/81 H 07/03/25 13:29 Pulse Ox 98 07/03/25 13:29 O2 Del Method Room Air 07/03/25 13:29 Course Vital Signs Vital signs: Vital Signs Temperature 97.7 F 07/03/25 13:29 Pulse Rate 81 07/03/25 13:29 Respiratory Rate 16 07/03/25 13:29 Blood Pressure 161/81 H 07/03/25 13:29 Pulse Oximetry 98 07/03/25 13:29 Oxygen Delivery Method Room Air 07/03/25 13:29 Temperature 97.7 F 07/03/25 13:29 Pulse Rate 81 07/03/25 13:29 Respiratory Rate 16 07/03/25 13:29 Blood Pressure 161/81 H 07/03/25 13:29 Pulse Oximetry 98 07/03/25 13:29 Oxygen Delivery Method Room Air 07/03/25 13:29 Medical Decision Making MDM Narrative Medical decision making narrative: X-ray report from other facility was obtained and it showed no evidence of recent fracture, joint effusion or acute bony pathology. She was given IM Nadege dol here and prescribed Tylenol 3 and she will follow-up with her orthopedist. Treatment diagnosis and follow-up were discussed with the patient. Differential Diagnosis Differential Diagnosis: Hardware failure, effusion, fracture, arthritis Discharge Plan Discharge Chief Complaint: Extremity Problem, Nontraumatic Clinical Impression: Left knee pain Patient Disposition: Home, Self-Care Time of Disposition Decision: 14:23 Condition: Good Mode of Transportation: Private Vehicle Prescriptions / Home Meds: New acetaminophen-codeine 300-30 mg tablet 1 tab PO Q6H PRN (Reason: pain) 5 Days Qty: 20 0RF No Action oxybutynin chloride 5 mg Tablet 5 mg PO QD 10 Days Qty: 10 0RF celecoxib [Celebrex] 100 mg capsule 100 mg PO DAILY 10 Days Qty: 10 0RF metformin 500 mg tablet 500 mg PO BID lisinopril 40 mg tablet 40 mg PO DAILY carvedilol 25 mg tablet 25 mg PO BID gabapentin 300 mg capsule Trulicity 0.75 mg/0.5 mL pen injector 0.75 mg subcut QWEEK Print Language: Albanian Instructions: Knee Pain (ED) Referrals: [facility] [Primary Care Provider, Unknown] - 1 week
== END 2025-07-03 14:37 | disposition home or self-care (01) ==
PROVIDERS: Emergency Provider Emergency Medicine
DX: M25.562 Pain in left knee (principal); Z96.652 Presence of left artificial knee joint
CPT/HCPCS: 96372; 99284; J1885

== ENCOUNTER 2025-08-05 11:59 | Emergency (ER) | payer MEDICARE, SELFPAY ==
--- OUTSIDE RECORDS SUMMARY | 2025-03-14 10:30 | XMS_ITS ---
Author Organization [facility] Address [address] [place], [place] [id number] Care Team Providers Care Director Of Guidance Name Role Phone Roseline Luque Primary Care Provider REASON FOR VISIT 4 week Knee pain, Neuropathy Social History Sex Assigned At : Social History Observation Description Sex Assigned At Female Encounters Encounter Location Date Provider Diagnosis Main [address] [place], [place] [id number] 03/14/2025 Roseline Luque Plan Of Treatment Next Appt Details Provider Name:Roseline Luque, 08/08/2025 11:15:00 AM, [address] [place], [place], [id number], Progress Notes * Negra GARCIADOB: [birth year] (75 yo F)Acc No.[id number]:03/14/2025 Medical Note Patient: Negra NEVILLE :?Roseline Luque MDDOB:1950???Age:75 Y???Sex: FemaleDate:03/14/2025Phone:[phone]:[address] [id number] Subjective: * Chief Complaints: * 1 . 4 week Knee pain, Neuropathy. * Medical History: Objective: * Vitals: Assessment: Plan: * Treatment: * Billing Information: * Visit Code: * Procedure Codes: * Electronic signature of Roseline Luque MD on 08/05/2025 at 12:16 PM EDTSign off status: Pending * Provider: Jeison Luque MD Date: 0 03/14/2025 Generated for Printing/Faxing/eTransmitting on:?08/05/2025 12:16 PM EDT
--- OUTSIDE RECORDS SUMMARY | 2025-03-22 09:30 | XMS_ITS ---
Author Organization [facility] Address [address] [place] [address] Care Team Providers Care Building Drafting Officer Name Role Phone Carmela Juan Unavailable [phone] REASON FOR VISIT SP RIGHT TOTAL HIP 12/29 Encounters Encounter Location Date Provider Diagnosis [facility] [facility] [address] [place] [address] [place] [id number] 03/22/2025 Juan Casey Presence of right artificial hip joint Z96.641 Assessments Encounter Date Diagnosis (ICD Code) Assessment Notes Treatment Notes Treatment Clinical Notes Section Notes 03/22/2025 Presence of right artificial hip joint (ICD-10 - Z96.641) Plan Of Treatment Pending Test Test Name Order Date PEH HIP RIGHT W/PELVIS 2-3V- 04762 03/22 Progress Notes * YAQUELIN MARI ADOB:[birth year] (75 yo F)Acc No.[id number]:03/22/2025 Progress Notes Patient: MARI NEVILLE :?Juan Casey MDDOB:1950???Age:75 Y ???Sex:FemaleDate:03/22/2025Phone:[phone]:[address] [place], [place] Subjective: * Chief Complaints: * 1 . SP RIGHT TOTAL HIP 12/29. * Medical History: Objective: * Vitals: Assessment: * Assessment: 1.?Presence of right artificial hip joint - Z96.641 (Primary)??? Plan: * Treatment: ?Imaging: PEH HIP RIGHT W/PELVIS 2-3V- 23986 * Procedure Codes: 7 3502 X-RAY EXAM HIP UNI 2-3 VIEWS Forms: * Images: * Electronic signature of Juan Casey MD on 08/05/2025 at 12:16 PM EDTSign off status: Pending * Provider: Eliazar Casey MD Date: 0 03/22/2025 Generated for Printing/Faxing/eTransmitting on:?08/05/2025 12:16 PM EDT
--- OUTSIDE RECORDS SUMMARY | 2025-05-17 06:00 | XMS_ITS ---
Author Organization [facility] Address [address] [place] [address] Care Team Providers Care Trashman Name Role Phone Juan Casey Unavailable [phone] Allergies Allergen (clinical drug ingredient) Drug/Non Drug Allergy documented on EMR Reaction Allergy Type Onset Date Status PENICILLIN GUnknownDrug AllergyActive REASON FOR VISIT rt hip and knee f/u Medications Medication SIG (Take, Route, Frequency, Duration) Notes Start Date End Date Status metFORMIN ActivelisinoprilActiveNexIUM 20 mg1 daily ORALActiveLac-Hydrin 12%1 tootie applied topically 2 times a day for 5 day(s)09/08/2020Not-TakingIbuprofenActive gabapentin 300 mg1 cap(s) orally 1 pill once a day for 3 days, 1 pill twice a day for 3 days, 1 pill three times a day there after for 30 day(s)07/13/2024 Not-TakingMetFORMIN Hydrochloride 500 mgORALActivelisinopril 2.5 mg1 daily ORAL ActiveNexIUMActive Social History Tobacco Use: Social History Observation Description Date Details (start date - stop date) Never Smoker NA - NA AUDIT-C (Standard) Question Answer Notes Did you have a drink containing alcohol in the p ast year? No Gtuyay4KrxktbkqnjluupNgbhycoiQswyuwg Control (Standard) Question Answer Notes Tobacco use: Nonsmoker Problems Problem Type SNOMED Code ICD Code Onset Dates Problem Status W/U Status Risk Notes Problem [id number] Effusion of right knee (M 25.461) Activeconfirmed Vital Signs Height 64 in 05/17/2025 Weight 193 lbs 05/17/2025 BMI 33.12 05/17/2025 Encounters Encounter Location Date Provider Diagnosis [facility] [address] [address] 05/17/2025 Juan Casey Aftercare following joint replacement surgery Z47.1 ; Effusion of right knee M25.461 and Presence of right artificial knee joint Z96.651 Assessments Encounter Date Diagnosis (ICD Code) Assessment Notes Treatment Notes Treatment Clinical Notes Section Notes 05/17/2025 Aftercare following joint replac ement surgery (ICD-10 - Z47.1) 1 status post right total knee replacement 2 isolated swelling anterolateral aspect right knee 05/17/2025Effusion of right knee (ICD-10 - M25.461) 1 status post right total knee replacement 2 isolated swelling anterolateral aspect right knee 05/17/2025Presence of right artificial knee joint (ICD-10 - Z96.651) 1 status post right total knee replacement 2 isolated swelling anterolateral aspect right knee 05/17/2025OtherPatient does not have any signs of infection. Her knee was injected with dexamethasone with Marcaine lidocaine. She tolerated this well. No significant effusion was noted. No purulent material was noted. 1 status post right total knee replacement 2 isolated swelling anterolateral aspect right knee Plan Of Treatment Treatment Notes Assessment Notes Other Patient does not hav e any signs of infection. Her knee was injected with dexamethasone with Marcaine lidocaine. She tolerated this well. No significant effusion was noted. No purulent material was noted. Pending Test Test Name Order Date [facility] Knee right [id number] 05/17/2025 Next Appt Details Follow Up: prn, Reason: Medications Administered Medication Instructions Date of Administration Dosage Notes BUPIVACAINE .5 mVhzioprdlufbyz84/12/20252 nCzsjhyeqcv82/12/20251.5 mL Progress Notes * MARI JAMISON ADOB:[birth year] (75 yo F)Acc No.[id number]:05/17/2025 Patient:?YAQUELINMARI A :?Juan Casey, MDDOB:1950???Age:75 Y ???Sex:FemaleDate:05/17/2025Phone:[phone]:[address] [place], [place] [id number] Subjective: * Chief Complaints: * 1 . Rt hip and knee f/u. * HPI: ???HPI:? Patient comes in today for evaluation of her right knee. She had a right total knee replacement performed a number of years ago. States she is developing cyst on the lateral aspect of her knee. Denies any injuries. * Medical History: D iabetes: Yes, , Blood Clots: Yes, , Drug Allergies: Yes,, High Blood Pressure: Yes, . * Surgical History: L eft total knee replacement 12/2018, Left total hip replacement 07/2019, RIGHT TOTAL KNEE REPLACEMENT , Right total hip arthroplasty 12/2024. * Family History: M other: diagnosed with Arthritis, Cancer. F ather: diagnosed with Diabetes. * Social History: E xercise regularly: No D o you exercise? N o. W hat is your place of residence??Where do you live? P rivate home. A VINNY-C (Standard) D id you have a drink containing alcohol in the past year? N o, P oints 0 , I nterpretation N egative. T obacco Control (Standard) T obacco use: N onsmoker. * Medications: T aking lisinopril 2.5 mg tablet 1 daily ORAL , Taking MetFORMIN Hydrochloride 500 mg tablet ORAL , Taking NexIUM 20 mg delayed release capsule 1 daily ORAL , Taking Ibuprofen , Taking lisinopril , Taking metFORMIN , Taking NexIUM , Not- Taking/PRN gabapentin 300 mg capsule 1 cap(s) orally 1 pill once a day for 3 days, 1 pill twice a day for 3 days, 1 pill three times a day there after , Not-Taking/PRN Lac- Hydrin 12% lotion 1 tootie applied topically 2 times a day , Medication List reviewed and reconciled with the patient * Allergies: P ENICILLIN G. Objective: * Vitals: H t: 64 in, Wt: 193 lbs, BMI:33.12. * Examination: ???General examination: ???Patient is an age-appropriate 75-year-old female. Patient is in no acute distressand is alert and oriented x 3. Patient is appropriately dressed and appears to be well nourished. Patient has full extension of the right knee. Flexion 120 degrees. Ligaments are well-balanced. Shehas an area of swelling localized to the anterolateral aspect of her joint. It is feels like it hasa little bit of fluid within it. Minimal fluid within the knee joint proper. ???X-ray Imaging Studies: ???AP and lateral x-rays of the right knee were obtained in the office. Right total knee replacement is in good position well-fixed to the bone. This is a NexGen knee. ??? Assessment: * Assessment: 1.?Effusion of right knee - M25.461 (Primary)???2.?Aftercare following joint replacement surgery - Z47.1???3.?Presence of right artificial knee joint - Z96 .651???1 status post right total knee replacement 2 isolated swelling anterolateral aspect right knee Plan: * Treatment: ?Imaging: [facility] Knee right [id number].?Others? Notes: Patient does not have any signs of infection. Her knee was injected with dexamethasone with Marcaine lidocaine. She tolerated this well. No significant effusion was noted. No purulent materialwas noted.?? * Procedures: ???Right knee was sterilely prepped with alcohol injected with 8 mg dexamethasone lot of Marcaine lidocaine from an anteromedial approach. Minimal clear joint effusion was noted. No pus was not appreciated. ? * Therapeutic Injections: BUPIVACAINE : 1.5 mL given by Juan Casey MD (Presence of right artificial knee joint)? ? dexamethasone : 2 mL given by Juan Casey MD (Presence of right artificial knee joint)? ? LIDOCAINE : 1.5 mL given by Juan Casey MD (Presence of right artificial knee joint) * Procedure Codes: 2 0610 Injection major joint/bursa, Modifiers: RT , 33027 X-ray Knee, 2 view, Modifiers: RT , J1100 INJ DEXAMETHOSONE SODIM PHOSHATE 1 MG, Units: 8.00 , Modifiers: JZ * Preventive Medicine: ??MIPS Measures:?#128 BMI screening follow up plan?Above Normal BMI Follow-up&#1 60;Dietary management education, guidance, and counseling.?EEE229 Fall Risk?Screening: No falls in the past year.? ??Screenings:?Fall Risk Screening?Fall Risk Assessment:?No falls in the past year.? ??Well Visit:?Preventive Screenings?DEXA performed?06/17/2024.? * Follow Up: p rn Forms: * Images: * Electronic signature of Juan Casey MD on 08/05/2025 at 12:16 PM EDTSign off status: Pending * Provider: Eliazar Casey MD Date: 0 05/17/2025 Generated for Printing/Faxing/eTransmitting on:?08/05/2025 12:16 PM EDT History and Physical Notes * HPI (History of Present Illness) CategorySub-CategoryDetailNotesCategory NotesHPIPatient comes in today for evaluation of her right knee. She had a right total knee replacement performed a number of years ago. States she is developing cyst on the lateral aspect of her knee. Denies any injuries. Examination CategorySub-CategoryDetailNotesCategory NotesGeneral examination Patient is an age-appropriate 75-year-old female. Patient is in no acute distress and is alert and oriented x 3. Patient is appropriately dressed and appears to be well nourished. Patient has full extension of the right knee. Flexion 120 degrees. Ligaments are well-balanced. Shehas an area of swelling localized to the anterolateral aspect of her joint. It is feels like it hasa little bit of fluid within it. Minimal fluid within the knee joint proper. X-ray Imaging StudiesAP and lateral x-rays of the right knee were obtained in the office. Right total knee replacement is in good position well-fixed to the bone. This is a NexGen knee.
--- OUTSIDE RECORDS SUMMARY | 2025-05-26 06:30 | XMS_ITS ---
Author Organization [facility] Address [address] [place] [address] Care Team Providers Care Kindergarten Instructional Assistant Name Role Phone Juan Casey [phone] REASON FOR VISIT Lt hip MRI Encounters Encounter Location Date Provider Diagnosis [facility] [address] [place] [address] [place] [address] 05/26/2025 Juan Casey Plan Of Treatment No Information Progress Notes * MARI JAMISON ADOB:[birth year] (75 yo F)Acc No.[id number]:05/26/2025 Patient:?MARI JAMISON :?Juan Casey MDDOB:1950???Age:75 Y ???Sex:FemaleDate:05/26/2025Phone:[phone]:[address] [place], [place] Subjective: * Chief Complaints: * 1 . Lt hip MRI. * Medical History: Objective: * Vitals: Assessment: Plan: * Treatment: Forms: * Images: * Electronic signature of Juan Casey MD on 08/05/2025 at 12:16 PM EDTSign off status: Pending * Provider: Eliazar Casey MD Date: 0 05/26/2025 Generated for Printing/Faxing/eTransmitting on:?08/05/2025 12:16 PM EDT
--- OUTSIDE RECORDS SUMMARY | 2025-06-02 06:00 | XMS_ITS ---
Author Organization [facility] Address [address] [place] [address] Care Team Providers Care Pearl Fisherman Name Role Phone Juan Casey Unavailable [phone] REASON FOR VISIT FOLLOW UP MRI LEFT HIP Medications Medication SIG (Take, Route, Frequency, Duration) Notes Start Date End Date Status Ibuprofen ActiveLac-Hydrin 12%1 tootie applied topically 2 times a day for 5 day(s)09/08/2020 Not-TakinglisinoprilActivemetFORMINActiveNexIUMActivelisinopril 2.5 mg1 daily ORALActiveMetFORMIN Hydrochloride 500 mgORALActiveNexIUM 20 mg1 daily ORALActive gabapentin 300 mg1 cap(s) orally 1 pill once a day for 3 days, 1 pill twice a day for 3 days, 1 pill three times a day there after for 30 day(s)07/13/2024 Not-Taking Encounters Encounter Location Date Provider Diagnosis [facility] [facility] [address] [place] [address] [place] [address] 06/02/2025 Juan Casey Plan Of Treatment No Information Progress Notes * MARI JAMISON ADOB:[birth year] (75 yo F)Acc No.[id number]:06/02/2025 Patient:?MARI JAMISON :?Juan Casye MDDOB:1950???Age:75 Y ???Sex:FemaleDate:06/02/2025Phone:[phone]:[address] [place], [place] Subjective: * Chief Complaints: * 1 . FOLLOW UP MRI LEFT HIP. * Medical History: * Medications: T aking lisinopril 2.5 mg [...] tootie applied topically 2 times a day Objective: * Vitals: Assessment: Plan: * Treatment: Forms: * Images: * Electronic signature of Juan Casey MD on 08/05/2025 at 12:16 PM EDTSign off status: Pending * Provider: Eliazar Casey MD Date: 0 06/02/2025 Generated for Printing/Faxing/eTransmitting on:?08/05/2025 12:16 PM EDT
--- OUTSIDE RECORDS SUMMARY | 2025-06-13 04:30 | XMS_ITS ---
Author Organization [facility] Address [address] [place] [address] Care Team Providers Care Wash Crew Person Name Role Phone Roseline Luque Primary Care Provider REASON FOR VISIT breast exam, referral for mammogram Social History Sex Assigned At : Social History Observation Description Sex Assigned At Female Encounters Encounter Location Date Provider Diagnosis Main [address] [place] [id number] 06/13/2025 Roseline Luque Plan Of Treatment Next Appt Details Provider Name:Roseline Luque, 08/08/2025 11:15:00 AM, [address], [id number], Progress Notes * Negra GARCIADOB: [birth year] (75 yo F)Acc No.[id number]:06/13/2025 Medical Note Patient: Negra NEVILLE :?Roseline Luque MDDOB:1950???Age:75 Y???Sex: FemaleDate:06/13/2025Phone:[phone]:[address], [place] Subjective: * Chief Complaints: * 1 . Breast exam, referral for mammogram. * Medical History: Objective: * Vitals: Assessment: Plan: * Treatment: * Billing Information: * Visit Code: * Procedure Codes: * Electronic signature of Roseline Luque MD on 08/05/2025 at 12:15 PM EDTSign off status: Pending * Provider: Jeison Luque MD Date: 0 06/13/2025 Generated for Printing/Faxing/eTransmitting on:?08/05/2025 12:15 PM EDT
--- OUTSIDE RECORDS SUMMARY | 2025-06-16 08:45 | XMS_ITS ---
Author Organization [facility] Address [address] [place] [id number] Care Team Providers Care Dental Resident Name Role Phone Roseline Luque Primary Care Provider REASON FOR VISIT DM and HTN Social History Sex Assigned At : Social History Observation Description Sex Assigned At Female Encounters Encounter Location Date Provider Diagnosis Main [address] [place] [id number] 06/16/2025 Roseline Luque Plan Of Treatment Next Appt Details Provider Name:Roseline Luque, 08/08/2025 11:15:00 AM, [address], [id number], Progress Notes * Negra GARCIADOB: [birth year] (75 yo F)Acc No.[id number]:06/16/2025 Medical Note Patient: Negra NEVILLE :?Roseline uLque MDDOB:1950???Age:75 Y???Sex: FemaleDate:06/16/2025Phone:[phone]:[address] [place] Subjective: * Chief Complaints: * 1 . DM and HTN. * Medical History: Objective: * Vitals: Assessment: Plan: * Treatment: * Billing Information: * Visit Code: * Procedure Codes: * Electronic signature of Roseline Luque MD on 08/05/2025 at 12:15 PM EDTSign off status: Pending * Provider: Jeison Luque MD Date: 0 06/16/2025 Generated for Printing/Faxing/eTransmitting on:?08/05/2025 12:15 PM EDT
--- OUTSIDE RECORDS SUMMARY | 2025-06-27 12:30 | XMS_ITS ---
Author Organization [facility] vices Address [address] [place] [id number] Care Team Providers Care Communications Officer Name Role Phone Roseline Luque Primary Care Provider REASON FOR VISIT Left knee pain Social History Sex Assigned At : Social History Observation Description Sex Assigned At Female Encounters Encounter Location Date Provider Diagnosis Main [address] [place] [id number] 06/27/2025 Roseline Luque Plan Of Treatment Next Appt Details Provider Name:Roseline Luque, 08/08/2025 11:15:00 AM, [address] [place], [place], [id number], Progress Notes * Negra GARCIADOB: [birth year] (75 yo F)Acc No.[id number]:06/27/2025 Medical Note Patient: Negra NEVILLE :?Roseline Luque MDDOB:1950???Age:75 Y???Sex: FemaleDate:06/27/2025Phone:[phone]:[address] [id number] Subjective: * Chief Complaints: * 1 . Left knee pain. * Medical History: Objective: * Vitals: Assessment: Plan: * Treatment: * Billing Information: * Visit Code: * Procedure Codes: * Electronic signature of Roseline Luque MD on 08/05/2025 at 12:15 PM EDTSign off status: Pending * Provider: Jeison Luque MD Date: 0 06/27/2025 Generated for Printing/Faxing/eTransmitting on:?08/05/2025 12:15 PM EDT
--- OUTSIDE RECORDS SUMMARY | 2025-06-28 06:00 | XMS_ITS ---
Author Organization [facility] Address [address] [place] [address] Care Team Providers Care Benefits Director Name Role Phone CarmelaPercyip Unavailable [phone] Allergies Allergen (clinical drug ingredient) Drug/Non Drug Allergy documented on EMR Reaction Allergy Type Onset Date Status PENICILLIN GUnknownDrug AllergyActive REASON FOR VISIT FOLLOW UP MRI LEFT HIP Medications Medication SIG (Take, Route, Frequency, Duration) Notes Start Date End Date Status NexIUM ActiveMetFORMIN Hydrochloride 500 mgORALActiveNexIUM 20 mg1 daily ORALActive gabapentin 300 mg1 cap(s) orally 1 pill once a day for 3 days, 1 pill twice a day for 3 days, 1 pill three times a day there after for 30 day(s)07/13/2024 Not-Takinglisinopril 2.5 mg1 daily ORALActivelisinoprilActivemetFORMINActive IbuprofenActiveLac-Hydrin 12%1 tootie applied topically 2 times a day for 5 day(s) 09/08/2020Not-Taking Social History Tobacco Use: Social History Observation Description Date Details (start date - stop date) Never Smoker NA - NA AUDIT-C (Standard) Question Answer Notes Did you have a drink containing alcohol in the p ast year? No Oypayd5VutodawwylchfnYujtelxqIejjvgz Control (Standard) Question Answer Notes Tobacco use: Nonsmoker Encounters Encounter Location Date Provider Diagnosis [facility] [address] [place] [address] 06/28/2025 Juan Casey Contusion of left knee, initial encounter S80.02XA ; Aftercare following joint replacement surgery Z47.1 and Presence of left artificial knee joint Z96.652 Assessments Encounter Date Diagnosis (ICD Code) Assessment Notes Treatment Notes Treatment Clinical Notes Section Notes 06/28/2025 Contusion of left knee, initial encounter (ICD-10 - S80.02XA) 1 contusion left total knee 2 sprain strain injury left knee 3 left gluteal muscle strain 06/28/2025ftercare following joint replacement surgery (ICD-10 - Z47.1) 1 contusion left total knee 2 sprain strain injury left knee 3 left gluteal muscle strain 06/28/2025Presence of left artificial knee joint (ICD-10 - Z96.652) 1 contusion left total knee 2 sprain strain injury left knee 3 left gluteal muscle strain 06/28/2025OtherFindings were discussed with her . As she has a diabetic and very sensitive to cortisone injections. Plan is to treat this conservatively and we will see her back in the office as needed. 1 contusion left total knee 2 sprain strain injury left knee 3 left gluteal muscle strain Plan Of Treatment Treatment Notes Assessment Notes Other Findings were discus sed with her . As she has a diabetic and very sensitive to cortisone injections. Plan is to treat this conservatively and we will see her back in the office as needed. Next Appt Details Follow Up: prn, Reason: Progress Notes * MARI JAMISON ADOB:[birth year] (75 yo F)Acc No.[id number]:06/28/2025 Patient:?MARI JAMISON A :?Juan E Carmela, MDDOB:1950???Age:75 Y ???Sex:FemaleDate:06/28/2025Phone:[phone]:[address] [place], [place] [id number] Subjective: * Chief Complaints: * 1 . FOLLOW UP MRI LEFT HIP. * HPI: ???HPI:? Patient comes in today for evaluation of left knee. Apparentlyhe recently had a fall and injured her left knee and the left hip. She comes in today with a walker. She is complaining of pain along the medial aspect of her left knee. Status post left total knee replacement. * Medical History: D iabetes: Yes, , [...] Allergies: P ENICILLIN G. Objective: * Vitals: * Examination: ???General examination: ???Patient is an age-appropriate 75-year-old female.. Patient is in no acute distress and is alert and oriented x 3. Patient is appropriately dressed and appears to be well nourished. Patient does not have any significant effusion. She has complaints of numbness along the medial aspect of her knee. No deformities noted. She is able to flex her knee past 110 degrees. Ligaments are stable. She can flex and extend her foot and ankle. ???X-ray Imaging Studies: ???AP and lateral x-rays of the left knee were obtained in the office. Left total knee replacement is in good position without evidence of loosening or periprosthetic fracture. ???MRI Imaging Studies: ???MRI scan of the left hip without contrast There are bilateral hip prostheses with cystic secure fixation of the hips 2 grossly of the image at portions of the bony pelvis shows no acute findings 3 there is edema within the left gluteal muscle consistent with traumatic muscle strain involving the gluteus medius insertion resulting in a traumatic left greater trochanteric bursitis. ??? Assessment: * Assessment: 1.?Contusion of left knee, initial encounter - S80.02XA (Primary)???2.?Aftercare following joint replacement surgery - Z47.1???3.?Presence of left artificial knee joint - Z96.652???1 contusion left total knee 2 sprain strain injury left knee 3 left gluteal muscle strain Plan: * Treatment: Notes: Findings were discussed with her . As she has a diabetic and very sensitive to cortisone injections. Plan is to treat this conservatively and we will see her back in the office as needed.?? * Procedure Codes: 7 3560 X-ray Knee, 2 view, Modifiers: LT * Follow Up: p rn Forms: * Images: * Electronic signature of Juan Casey MD on 08/05/2025 at 12:15 PM EDTSign off status: Pending * Provider: Eliazar Casey MD Date: 0 06/28/2025 Generated for Printing/Faxing/eTransmitting on:?08/05/2025 12:15 PM EDT History and Physical Notes * HPI (History of Present Illness) CategorySub-CategoryDetailNotesCategory NotesHPIPatient comes in today for evaluation of left knee. Apparently he recently had a fall and injured her left knee and the left hip. She comes in today with a walker. She is complaining of pain along the medial aspect of her left knee. Status post left total knee replacement. Examination CategorySub-CategoryDetailNotesCategory NotesGeneral examination Patient is an age-appropriate 75-year-old female.. Patient is in no acute distress and is alert andoriented x 3. Patient is appropriately dressed and appears to be well nourished. Patient does not have any significant effusion. She has complaints of numbness along the medial aspect of her knee. No deformities noted. She is able to flex her knee past 110 degrees. Ligaments are stable. She can flex and extend her foot and ankle. X-ray Imaging StudiesAP and lateral x-rays of the left knee were obtained in the office. Left total knee replacement is in good position without evidence of loosening or periprosthetic fracture.MRI Imaging Studies MRI scan of the left hip without contrast There are bilateral hip prostheses with cystic secure fixation of the hips 2 grossly of the image at portions of the bony pelvis shows no acute findings 3 there is edema within the left gluteal muscle consistent with traumatic muscle strain involving the gluteus medius insertion resulting in a traumatic left greater trochanteric bursitis
--- OUTSIDE RECORDS SUMMARY | 2025-06-28 10:30 | XMS_ITS ---
Author Organization [facility] vices Address [address] [place] [id number] Care Team Providers Care Rod Placer Name Role Phone Roseline Luque Primary Care Provider [phone] REASON FOR VISIT Left Knee Pain Social History Sex Assigned At : Social History Observation Description Sex Assigned At Female Encounters Encounter Location Date Provider Diagnosis Main [address] [place] [id number] 06/28/2025 Roseline Luque Plan Of Treatment Next Appt Details Provider Name:Roseline Luque, 08/08/2025 11:15:00 AM, [address], [place], [id number], Progress Notes * Negra GARCIADOB: [birth year] (75 yo F)Acc No.[id number]:06/28/2025 Medical Note Patient: Negra NEVILLE :?Roseline Luque MDDOB:1950???Age:75 Y???Sex: FemaleDate:06/28/2025Phone:[phone]:[address] [id number] Subjective: * Chief Complaints: * 1 . Left Knee Pain. * Medical History: Objective: * Vitals: Assessment: Plan: * Treatment: * Billing Information: * Visit Code: * Procedure Codes: * Electronic signature of Roseline Luque MD on 08/05/2025 at 12:14 PM EDTSign off status: Pending * Provider: Jeison Luque MD Date: 0 06/28/2025 Generated for Printing/Faxing/eTransmitting on:?08/05/2025 12:14 PM EDT
--- OUTSIDE RECORDS SUMMARY | 2025-07-01 08:00 | XMS_ITS ---
Author Organization [facility] vices Address [address] [place] [id number] Care Team Providers Care Fire Eater Name Role Phone Roseline Luque Primary Care Provider REASON FOR VISIT left knee pain Social History Sex Assigned At : Social History Observation Description Sex Assigned At Female Encounters Encounter Location Date Provider Diagnosis Main [address] [place] [id number] 07/01/2025 Roseline Luque Plan Of Treatment Next Appt Details Provider Name:Roseline Luque, 08/08/2025 11:15:00 AM, [address], [place], [id number], Progress Notes * Negra GARCIADOB: [birth year] (75 yo F)Acc No.[id number]:07/01/2025 Medical Note Patient: Negra NEVILLE :?Roseline Luque MDDOB:1950???Age:75 Y???Sex: FemaleDate:07/01/2025Phone:[phone]:[address] [id number] Subjective: * Chief Complaints: * 1 . Left knee pain. * Medical History: Objective: * Vitals: Assessment: Plan: * Treatment: * Billing Information: * Visit Code: * Procedure Codes: * Electronic signature of Roseline Luque MD on 08/05/2025 at 12:16 PM EDTSign off status: Pending * Provider: Jeison Luque MD Date: 0 07/01/2025 Generated for Printing/Faxing/eTransmitting on:?08/05/2025 12:16 PM EDT
--- OUTSIDE RECORDS SUMMARY | 2025-08-04 08:56 | XMS_ITS | Encounter Summary ---
Author Organization [facility] tem Address [id number] [place] [address] Care Team Providers Care Management Analyst Name Role Phone Services, [facility] Primary Care Provider Reason for Referral * Cardiology (Routine) - AuthorizedSpecialtyDiagnoses / ProceduresReferred By ContactReferred To Contact Diagnoses Chest pain, unspecified type Shortness of breath Procedures Nuc stress Ileana Fleming MD [address] [place] [address] Phone: tel: fax: Referral IDStatusReasonStart DateExpiration DateVisits RequestedVisits [id number]/3/202510/3/202655 Reason for Visit * Cardiology (Routine) - AuthorizedSpecialtyDiagnoses / ProceduresReferred By ContactReferred To Contact Diagnoses Chest pain, unspecified type Shortness of breath Procedures Nuc stress Ileana Fleming MD [address] [place] [address] Phone: tel: fax: Referral IDStatusReasonStart DateExpiration DateVisits RequestedVisits [id number]/3/202510/3/202655 Encounter Details DateTypeDepartmentCare Team (Latest Contact Info)Skcafttnchm59/30/2025 8:56 AM EDTHospital Encounter [facility] [address] [place] [address] Ileana Kennedy MD [address] [place], [place] [id number] Chest pain, unspecified type; Shortness of breath Social History Tobacco UseTypesPacks/DayYears UsedDateSmoking Tobacco: NeverSmokeless Tobacco: NeverAlcohol UseStandard Drinks/WeekCommentsNot Currently0 (1 standard drink = 0.6 oz pure alcohol)PHQ-2AnswerDate RecordedTotal [id number] AnswerDate RiswiabbMvnwsscmoEufuuna02/12/2019EmploymentAnswerDate Recorded HhpfwlqdckGjymqum51/12/2019Hunger ScreeningAnswerDate RecordedWithin the past 12 months we worried whether our food would run out before we got money to buy more.Never True07/08/2025Within the past 12 months the food we bought just didn't last and we didn't have money to get more.Never True07/08/2025Purpose - LifeAnswerDate RecordedPurpose and direction in bxztDfxphmu67/23/2021 CommentsNoSex and Gender InformationValueDate RecordedSex Assigned at BirthNot on fileLegal ItwQvrmgi27/06/2015 11:22 AM EDTGender IdentityNot on fileSexual OrientationNot on filedocumented as of this encounter Plan of Treatment DateTypeDepartmentCare Team (Latest Contact Info)Wskbghhnsnm97/13/2025 2:15 PM ESTOffice Visit [facility] [address] [place] [address] Eliel Childers MD [address] [place] [address] documented as of this encounter Procedures Procedure NamePriorityDate/TimeAssociated DiagnosisCommentsNUC STRESS LEXISCAN Wdqvazm6808/04/2025 11:58 AM EDT Chest pain, unspecified type Shortness of breath documented in this encounter Results * Nuc stress Lexiscan (08/04/2025 11:58 AM EDT)ComponentValueRef RangeTest MethodAnalysis TimePerformed AtPathologist SignatureTarget JD813mxyGLNNHQTMQN SY52jslDOURDWNEYKNzmyyt peak GS517eueDYQLTUXLKZNwtljaif Systolic MV503cdYq SECTRAIECGDiastolic TG29laQeZTOTRWTXJETtliyj peak systolic GO012rzNtQQJDNHGIOT Diastolic SK83vqNgYUNNAGREIRTD89ewcRVRVMIXRJPIpdeem recovery systolic BP143 mmHgSECTRAIECGDiastolic RQ61xrZaJRHJQXQHQCOtrsvuk HR70%SECTRAIECGNuc Stress EF 72%SECTRAIECGEnd diastolic volume (mL)65mLSECTRAIECGEnd systolic volume (mL)18 mLSECTRAIECGTID1.03SECTRAIECGAnatomical RegionLateralityModalityChestN/A Nuclear Medicine, Nuclear MedicineSpecimen (Source)Anatomical Location / LateralityCollection Method / VolumeCollection TimeReceived Time Narrative 08/04/2025 4:00 PM EDT Perfusion Defect: There is a left ventricular function defect that is moderate in size with moderate reduction in uptake present in the apical to basal inferior, inferolateral and apex location(s) that is partially reversible. The defect appears to be caused by subdiaphragmatic activity. The possibility of ischemia cannot be excluded. No evidence of ischemic electrocardiographic changes with pharmacological stress. Normal wall motion with normal LV systolic function. ??Calculated ejection fraction of 70 %. TID: 1.03 Risk stratification: Intermediate risk for cardiovascular event Notes concerning risk stratification: For reference: Low risk for cardiovascular event a-normal or small myocardial perfusion defect with stress <10% total myocardium ?b-no high risk findings such as severe LV dysfunction ?c-normal study Intermediate risk for cardiovascular event ?a-LV resting dysfunction EF 35-50% ?b-moderate sized perfusion defect without high risk features (10-20% total myocardium) High risk for cardiovascular event a-EF <35% at rest ?b-severe exercise induced LV dysfunction c-stress induced large perfusion defect >20% myocardium ?d-multiple moderate sized stress induced perfusion defects ?e-large, fixed defect with LV dilation ?f-stress induced moderate perfusion defect with LV dilation Risk stratification incorporates both clinical history and some testing results. ??Final risk determination is the responsibility of the ordering provider as other patient information and test results may increase or decrease the risk assessment reported for this examination. Risk stratification criteria are adapted from Noninvasive Risk Stratification criteria from Sparks et. ??Al, ACC/AATS/AHA/ASE/ASNC/SCAI/SCCT/STS 2017 Appropriate Use Criteria For Coronary Revascularization in Patients With Stable Ischemic Heart Disease [facility] Volume 69, Issue February 2017 High risk (>3% annual or [place]) 1. Severe resting LV dysfunction (LVEF <35%) not readily explained by non coronary causes 2. Resting perfusion abnormalities greater than 10% of the myocardium in patients without prior history or evidence of MI3. Stress-induced perfusion abnormalities encumbering greater than or equal to 10% myocardium or stress segmental scores indicating multiple vascular territories with abnormalities 4. Stress-induced LV dilatation (TID ratio greater than 1.19 for exercise and greater than 1.39 for regadenoson) Intermediate risk (1% to 3% annual or [place]) 1. Mild/moderate resting LV dysfunction (LVEF 35% to 49%) not readily explained by non coronary causes. 2. Resting perfusion abnormalities in 5%-9.9% of the myocardium in patients without a history or prior evidence of [place] 3. Stress-induced perfusion abnormality encumbering 5%-9.9% of the myocardium or stress segmental scores indicating 1 vascular territory with abnormalities but without LV dilation 4. Small wall motion abnormality involving 1-2 segments and only 1 coronary bed. Low Risk (Less than 1% annual or [place]) 1. Normal or small myocardial perfusion defect at rest or with stress encumbering less than 5% of the Myocardium. Stress Findings A Lexiscan protocol was performed. A pharmacological stress test was performed using regadenoson. The patient reported dyspnea and flushing during the stress test. Symptoms began during stress and ended during recovery. ECG Baseline ECG indicates sinus rhythm. Arrhythmias during stress: PVC. PVC's were rare. The stress ECG was negative. Isotope Administration The isotope used for nuclear imaging was technetium sestamibi. Imaging was performed at rest after an administration on 08/04/2025 at 09:05 EDT of 10.4 mCi. Imaging was performed at peak stress afteran administration on 08/04/2025 at 10:28 EDT of 30.6 mCi. Nuclear Study Quality A Lexiscan protocol was performed. Perfusion Defect There is a left ventricular function defect that is moderate in size with moderate reduction in uptake present in the apical to basal inferior, inferolateral and apex location(s) that is partially reversible. The defect appears to be caused by subdiaphragmatic activity. The possibility of artifact a nd ischemia cannot be excluded. Perfusion Defect Conclusion TID ratio is 1.03. Stress Function Comments Stress ejection fraction is 72%. Authorizing ProviderResult TypeResult StatusLaura Dontae Kennedy [facility] STRESS ORDERABLESFinal Result documented in this encounter Visit Diagnoses Diagnosis Chest pain, unspecified type Shortness of breath documented in this encounter Administered Medications Medication OrderMAR ActionAction DateDoseRateSite kit for Tc 99m-sestamibi injection 10 millicurie 10 millicurie, intravenous, Once in imaging, contrast, Radiopharmaceutical, Starting on Fri08/04/25 at 0911, For 1 dose, Indications: diagnostic imaging Indications:diagnostic ptzrcdbVnszf44/30/2025 9:05 AM EDT10 millicuries kit for Tc 99m-sestamibi injection 30 millicurie 30 millicurie, intravenous, Once in imaging, contrast, Radiopharmaceutical, Starting on Juhi 08/04/25 at 0911, For 1 dose, Indications: diagnostic imaging Indications:diagnostic qwymttrSjxnw14/30/2025 10:28 AM EDT30 millicuries sodium chloride 0.9 % flush 10 mL 10 mL, intravenous, Once in imaging, line care, Nuclear Medicine, Starting on Fri08/04/25 at 0911,For 1 dose Given08/04/2025 10:28 AM EDT10 mL sodium chloride 0.9 % flush 10 mL 10 mL, intravenous, Once in imaging, line care, Nuclear Medicine, Starting on Juhi 08/04/25 at 0911,For 1 dose Given08/04/2025 9:05 AM EDT10 mLdocumented in this encounter Additional Health Concerns AssessmentNoted TimePHQ-9 Depression Total Score: 9:00 AM EDT documented as of this encounter Care Teams Team MemberRelationshipSpecialtyStart DateEnd Date Services, [facility] [address] [place], [place] PCP - GeneralFamily Medicine02/24/25documented as of this encounter
--- OUTSIDE RECORDS SUMMARY | 2025-08-04 08:56 | XMS_ITS | Encounter Summary ---
Author Organization [facility] tem Address [id number] [place] [address] Care Team Providers Care Vice President & General Manager [employer] Name Role Phone Services, [facility] Primary Care Provider Reason for Visit * Cardiology (Routine) - AuthorizedSpecialtyDiagnoses / ProceduresReferred By ContactReferred To Contact Diagnoses Chest pain, unspecified type Shortness of breath Procedures Nuc stress Lexiscan Ileana Kennedy MD [address] [place] [address] Phone: tel: fax: Referral IDStatusReasonStart DateExpiration DateVisits RequestedVisits [id number]/3/202510/3/202655 Encounter Details DateTypeDepartmentCare Team (Latest Contact Info)Uzpgoeyasah28/30/2025 8:56 AM EDTHospital Encounter [facility] [address] [place] [address] Ileana Kennedy MD [address] [place] [address] Arrived Social History Tobacco UseTypesPacks/DayYears UsedDateSmoking Tobacco: NeverSmokeless Tobacco: NeverAlcohol UseStandard Drinks/WeekCommentsNot Currently0 (1 standard drink = 0.6 oz pure alcohol)PHQ-2AnswerDate RecordedTotal [id number] AnswerDate CiqdriysMtxhuyrynMpzlohm03/12/2019EmploymentAnswerDate Recorded CvxgcamtmzKqytmmw12/12/2019Hunger ScreeningAnswerDate RecordedWithin the past 12 months we worried whether our food would run out before we got money to buy more.Never True07/08/2025Within the past 12 months the food we bought just didn't last and we didn't have money to get more.Never True07/08/2025Purpose - LifeAnswerDate RecordedPurpose and direction in ubasTglyjsg28/23/2021 CommentsNoSex and Gender InformationValueDate RecordedSex Assigned at BirthNot on fileLegal HntPvjzgr13/06/2015 11:22 AM EDTGender IdentityNot on fileSexual OrientationNot on filedocumented as of this encounter Plan of Treatment DateTypeDepartmentCare Team (Latest Contact Info)Pcoqvxiywjb76/13/2025 2:15 PM ESTOffice Visit [facility] [address] [place] [address] Eliel Childers MD [address] [place] [address] documented as of this encounter Procedures Procedure NamePriorityDate/TimeAssociated DiagnosisCommentsNUC STRESS LEXISCAN Vqeoxfs5808/04/2025 11:58 AM EDT Chest pain, unspecified type Shortness of breath documented in this encounter Results * Nuc stress Lexiscan (08/04/2025 11:58 AM EDT)ComponentValueRef RangeTest MethodAnalysis TimePerformed AtPathologist SignatureTarget AC730egwJYYLBWLHCD UH40akyKBQUHVUWEWIuprkk peak NC369qjfLHRUEONCEQImteovtp Systolic TI866yqKv SECTRAIECGDiastolic FO86zeKmZKXQKTCKQVCojwvp peak systolic LX612hdHfLOEDVABVAX Diastolic NF25mrPvMGDQHNTTUXXK26mebTDEXETVEZLQtupid recovery systolic BP143 mmHgSECTRAIECGDiastolic II13qhRwBPLIXXZXYFXljzthp HR70%SECTRAIECGNuc Stress EF 72%SECTRAIECGEnd diastolic volume (mL)65mLSECTRAIECGEnd [...] adapted from Noninvasive Risk Stratification criteria from Bridger et. ??Al, ACC/AATS/AHA/ASE/ASNC/SCAI/SCCT/STS 2017 Appropriate Use Criteria For Coronary Revascularization in Patients With Stable Ischemic Heart Disease [facility] Volume 69, Issue February 2017 High risk (>3% annual or [place]) 1. Severe resting LV dysfunction (LVEF <35%) [...] Intermediate risk (1% to 3% annual or [place]) 1. Mild/moderate resting LV dysfunction (LVEF 35% to 49%) not readily explained by non coronary causes. 2. Resting perfusion abnormalities in 5%-9.9% of the myocardium in patients without a history or prior evidence of [place] 3. Stress-induced perfusion abnormality encumbering 5%-9.9% of the myocardium or stress segmental scores indicating 1 vascular territory with abnormalities but without LV dilation 4. Small wall motion abnormality involving 1-2 segments and only 1 coronary bed. Low Risk (Less than 1% annual or [place]) 1. Normal or small myocardial perfusion defect [...] 72%. Authorizing ProviderResult TypeResult StatusLaura Dontae Kennedy [facility] STRESS ORDERABLESFinal Result documented in this encounter Visit Diagnoses Not on filedocumented in this encounter Additional Health Concerns AssessmentNoted TimePHQ-9 Depression Total Score: 9:00 AM EDT documented as of this encounter Care Teams Team MemberRelationshipSpecialtyStart DateEnd Date Services, [facility] [address] [place], [place] PCP - GeneralFamily Medicine02/24/25documented as of this encounter
--- OUTSIDE RECORDS SUMMARY | 2025-08-04 10:31 | XMS_ITS | Encounter Summary ---
Author Organization [employer] tem Address [id number] [place] [address] Care Team Providers Care Parts Department Supervisor Name Role Phone Services, [facility] Primary Care Provider Reason for Referral * Cardiology (Routine) - ClosedSpecialtyDiagnoses / ProceduresReferred By ContactReferred To Contact Diagnoses Chest pain, unspecified type Shortness of breath Procedures Echo complete W/O contrast Ileana Kennedy MD [address] [place] [address] Phone: tel: fax: Referral IDStatusReasonStart DateExpiration DateVisits RequestedVisits [id number]/3/202510/3/202611 Reason for Visit * Cardiology (Routine) - ClosedSpecialtyDiagnoses / ProceduresReferred By ContactReferred To Contact Diagnoses Chest pain, unspecified type Shortness of breath Procedures Echo complete W/O contrast Ileaan Kennedy MD [address] [place] [address] Phone: tel: fax: Referral IDStatusReasonStart DateExpiration DateVisits RequestedVisits [id number]/3/202510/3/202611 Encounter Details DateTypeDepartmentCare Team (Latest Contact Info)Dtzdsclshld28/30/2025 10:31 AM EDT - 08/04/2025 10:35 AM EDTHospital Encounter [facility] [address] [place] [address] Ileana Kennedy MD [address] [place] [address] Chest pain, unspecified type; Shortness of breath Discharge Disposition: Home Social History Tobacco UseTypesPacks/DayYears UsedDateSmoking Tobacco: NeverSmokeless Tobacco: NeverAlcohol UseStandard Drinks/WeekCommentsNot Currently0 (1 standard drink = 0.6 oz pure alcohol)PHQ-2AnswerDate RecordedTotal Vypig2631Childcare AnswerDate YoqgssmuUyprowkszKemdgtj29/12/2019EmploymentAnswerDate Recorded NfjnagmemvXhaizxc71/12/2019Hunger ScreeningAnswerDate RecordedWithin the past 12 months we worried whether our food would run out before we got money to buy more.Never True07/08/2025Within the past 12 months the food we bought just didn't last and we didn't have money to get more.Never True07/08/2025Purpose - LifeAnswerDate RecordedPurpose and direction in osqsCyfsbsy13/23/2021 CommentsNoSex and Gender InformationValueDate RecordedSex Assigned at BirthNot on fileLegal WjpPdmftn26/06/2015 11:22 AM EDTGender IdentityNot on fileSexual OrientationNot on filedocumented as of this encounter Medications at Time of Discharge MedicationSigDispense QuantityRefillsLast FilledStart DateEnd Date acetaminophen (TYLENOL ARTHRITIS) 650 mg 8 hr tablet as needed. atorvastatin (LIPITOR) 40 mg tablet Indications:Hyperlipidemia, unspecified hyperlipidemia typeTake 1 tablet (40 mg total) by mouth once daily at bedtime. 90 tablet CALCIUM ORAL Take by mouth in the morning. carvediloL (COREG) 25 mg tablet Take 1 tablet (25 mg total) by mouth in the morning and 1 tablet (25 mg total) before bedtime. 180 tablet glyBURIDE (DIABETA) 5 mg tablet Take 1 tablet (5 mg total) by mouth as needed.12/14/2020 lisinopril (PRINIVIL,ZESTRIL) 40 mg tablet Take 1 tablet (40 mg total) by mouth in the morning.08/15/2015 metFORMIN (GLUCOPHAGE) 500 mg tablet Indications:type 2 diabetes mellitusTake 1 tablet (500 mg total) by mouth in the morning and 1 tablet (500 mg total) before bedtime. Indications: type 2 diabetes mellitus. sodium chloride (AYR) 0.65 % drops Administer 2 drops into each nostril as needed (nasal dryness). 30 mL 12/14/2024 spironolactone (ALDACTONE) 25 mg tablet Take 1 tablet (25 mg total) by mouth in the morning. 90 tablet documented as of this encounter Plan of Treatment DateTypeDepartmentCare Team (Latest Contact Info)Xeybefjsbjf13/13/2025 2:15 PM ESTOffice Visit [facility] [address] [place] [address] Eliel Childers MD [address] [place] [address] documented as of this encounter Procedures Procedure NamePriorityDate/TimeAssociated DiagnosisCommentsECHO COMPLETE WO OSGQXVVUZptlqiw37/30/2025 11:20 AM EDT Chest pain, unspecified type Shortness of breath documented in this encounter Results * Echo complete W/O contrast (08/04/2025 11:20 AM EDT)ComponentValueRef Range Test MethodAnalysis TimePerformed AtPathologist SignatureLVOT stroke volume 103.99mlXCELERALV Systolic Boflnc75.48qFBOXCELWTF23%BPNNZNOJS6861 - 44 % XCELERALV Diastolic Wmoasz85.76qOFQIXFDPKSYZb6.99ruNTPUGHTMPPTj0.40cmXCELERA IVS0.900.6 - 1.1 cmXCELERAPW0.900.6 - 1.1 cmXCELERALVOT diameter2.00cmXCELERA TDI9.03cm/sXCELERAMV TDI E' (medial)6.64cm/sXCELERALA Volume Index29.0mL/m2 XCELERAE/A ratio0.74XCELERAE wave deceleration lqlx661.00msecXCELERAMV Peak E Vel64.00cm/sXCELERAMV Peak A Vel86.80cm/sXCELERALA size4.50cmXCELERAAortic root2.80cmXCELERALA tymcsy98.96kp2KZAVCMKJJ diastolic dimension (basal)38.0mm XCELERARVID d3.2qcLIYENYUKLYPS1.91cmXCELERAAV peak jql449.00cm/sXCELERALVOT peak vel1.18m/sXCELERAAV VTI45.40cmXCELERALVOT peak VTI33.10cmXCELERAAV mean zvialebq05.00mmHgXCELERAAV peak cqjteqov49.00mmHgXCELERAAV valve area2.29 XCELERAValve area - Index1.1XCELERAMV pressure 1/2 time59.00msXCELERAMV valve area p 1/2 method3.06qf3OZYIWUYYN Peak Vel2.6m/sXCELERATR peak niquvcze62.67 mmHgXCELERAPV mean gradient3.00mmHgXCELERAPV peak gradient6.05mmHgXCELERALV ESV A2C65.70mLXCELERALV ESV A4C47.40mLXCELERALV RWT 2D35.29XCELERAEcho EF Xexbzoyfy58%XCELERAAV Velocity Ratio0.73XCELERALeft Ventricle Mass 163.790203825671688vPTPJGYRLkkkrbqupojreula Septum Diastolic Thickness by 2D9 cmXCELERAEst. RA kesubgjq0ahVbYHOVDLPGF area15.3jr4YRUFVYIBQ Peak Systolic Vcnugzrm34vcTlRTTFRBMAeekfezyhg RegionLateralityModalityChestN/AUltrasound Specimen (Source)Anatomical Location / LateralityCollection Method / Volume Collection TimeReceived Time Narrative 08/04/2025 3:46 PM EDT Left Ventricle: Left ventricle appears normal in size. Systolic function is normal with an ejection fraction of 55-60%. The quantitative EF by 2D Berry biplane is 65%. No obvious regional wall motion abnormalities, however some segments are poorly visualized. Grade I diastolic dysfunction (impaired relaxation) is present. Lateral E' is 9.03 cm/s. Medial E' is 6.64 cm/s. Left Ventricle Left ventricle appears normal in size. Wall thickness is normal. Systolic function is normal with an ejection fraction of 55-60%. The quantitative EF by 2D Berry biplane is 65%. No obvious regionalwall motion abnormalities, however some segments are poorly visualized. Grade I diastolic dysfunction (impaired relaxation) is present. Lateral E' is 9.03 cm/s. Medial E' is 6.64 cm/s. Right Ventricle Right ventricle was not well visualized. Right ventricular size appears normal. The right ventricular basal diameter is 38.0 mm. Normal tricuspid annular plane systolic excursion. Normal systolic excursion velocity by TDI (>9.5 cm/s). Left Atrium Left atrium volume index is normal. The left atrial volume index is 29.0 mL/m2. Right Atrium Right atrium is normal in size. The right atrial area is 15.0 cm2. IVC/SVC The right atrial pressure is estimated at 3 mmHg. There is normal collapse with deep inspiration. Mitral Valve Mitral valve structure is normal. There is mild annular calcification. There is trace regurgitation. There is no evidence of mitral valve stenosis. Tricuspid Valve Tricuspid valve appears to be normal. There is trace to mild regurgitation. There is no evidence oftricuspid valve stenosis. RVSP calculated at 30 mmHg. RVSP is based on RA pressure of 3 mmHg. Aortic Valve Probable trileaflet aortic valve. The leaflets are mildly calcified. There is mild sclerosis. Thereis no regurgitation or stenosis. Pulmonic Valve The pulmonic valve was not well visualized. There is no regurgitation or stenosis. The peak gradient is 6.05 mmHg. The mean gradient is 3.00 mmHg. Ascending Aorta The aortic root is normal in size. Pericardium The pericardium has a fat pad. Study Details A complete echo was performed using complete 2D, color flow Doppler and spectral Doppler. Overall the study quality was adequate. The study had technical difficulties. The study was difficult due to patient's body habitus and unable to lay left lateral. BP 143/70 Wall Scoring Baseline Score Index: 1.00 The left ventricular wall motion is normal. Authorizing ProviderResult TypeResult StatusLaura Dontae Kennedy [facility] ECHO ORDERABLESFinal Result documented in this encounter Visit Diagnoses Diagnosis Chest pain, unspecified type Shortness of breath documented in this encounter Additional Health Concerns AssessmentNoted TimePHQ-9 Depression Total Score: 9:00 AM EDT documented as of this encounter Care Teams Team MemberRelationshipSpecialtyStart DateEnd Date Services, [facility] [address] [place], [place] PCP - GeneralFamily Medicine02/24/25documented as of this encounter
--- OUTSIDE RECORDS SUMMARY | 2025-08-04 10:36 | XMS_ITS | Encounter Summary ---
Author Organization [facility] tem Address [id number] [address] [place] [address] Care Team Providers Care Money Market Clerk Name Role Phone Services, Primary Care Provider Reason for Visit * Cardiology (Routine) - AuthorizedSpecialtyDiagnoses / ProceduresReferred By ContactReferred To Contact Diagnoses Chest pain, unspecified type Shortness of breath Procedures Nuc stress Lexiscan Ileana Kennedy MD [address] [place] [address] Phone: tel: fax: Referral IDStatusReasonStart DateExpiration DateVisits RequestedVisits [id number]/3/202510/3/202655 Encounter Details DateTypeDepartmentCare Team (Latest Contact Info)Txpwxtxlnej78/30/2025 10:36 AM EDTHospital Encounter [facility] [place] - Stress Imaging [address] [place] [address] Ileana Kennedy MD [address] [place] [address] Arrived Social History Tobacco UseTypesPacks/DayYears UsedDateSmoking Tobacco: NeverSmokeless Tobacco: NeverAlcohol UseStandard Drinks/WeekCommentsNot Currently0 (1 standard drink = 0.6 oz pure alcohol)PHQ-2AnswerDate RecordedTotal [id number] AnswerDate ZnpwxaxsFqoxmhiwrYiwdpec39/12/2019EmploymentAnswerDate Recorded KpazecjfwgVmaqpjl23/12/2019Hunger ScreeningAnswerDate RecordedWithin the past 12 months we worried whether our food would run out before we got money to buy more.Never True07/08/2025Within the past 12 months the food we bought just didn't last and we didn't have money to get more.Never True07/08/2025Purpose - LifeAnswerDate RecordedPurpose and direction in stvoTtgpczm10/23/2021 CommentsNoSex and Gender InformationValueDate RecordedSex Assigned at BirthNot on fileLegal DfvUlzlnp83/06/2015 11:22 AM EDTGender IdentityNot on fileSexual OrientationNot on filedocumented as of this encounter Plan of Treatment DateTypeDepartmentCare Team (Latest Contact Info)Agklhpaihce88/13/2025 2:15 PM ESTOffice Visit [facility] [address] [place] [address] Eliel Childers MD [address] [place] [address] documented as of this encounter Procedures Procedure NamePriorityDate/TimeAssociated DiagnosisCommentsNUC STRESS LEXISCAN Ieyzodd0208/04/2025 11:58 AM EDT Chest pain, unspecified type Shortness of breath documented in this encounter Results * Nuc stress Lexiscan (08/04/2025 11:58 AM EDT)ComponentValueRef RangeTest MethodAnalysis TimePerformed AtPathologist SignatureTarget EM351yxmCRSQDPOPKS MH23alxQVXCWIPRQSMuptmt peak VN058nthRDATCRBNGEBnhaxwva Systolic JI017kdEz SECTRAIECGDiastolic TP22tyYbRPLVLDWTNLBwpytg peak systolic QP229mhTcOZEJUELCLU Diastolic AL31qzQpWKNZUHWFYNEA34axcFPQICRJGADHrkepn recovery systolic BP143 mmHgSECTRAIECGDiastolic IY28ntJtOSBNARGNUDYebgvmg HR70%SECTRAIECGNuc Stress EF 72%SECTRAIECGEnd diastolic volume (mL)65mLSECTRAIECGEnd [...] in Patients With Stable Ischemic Heart Disease [facility] Volume 69, Issue February 2017 High risk (>3% annual or [place]) 1. Severe resting LV dysfunction (LVEF <35%) [...] Intermediate risk (1% to 3% annual or [place]) 1. Mild/moderate resting LV dysfunction (LVEF 35% to 49%) not readily explained by non coronary causes. 2. Resting perfusion abnormalities in 5%-9.9% of the myocardium in patients without a history or prior evidence of [place] 3. Stress-induced perfusion abnormality encumbering 5%-9.9% of the myocardium or stress segmental scores indicating 1 vascular territory with abnormalities but without LV dilation 4. Small wall motion abnormality involving 1-2 segments and only 1 coronary bed. Low Risk (Less than 1% annual or [place]) 1. Normal or small myocardial perfusion defect [...] 72%. Authorizing ProviderResult TypeResult StatusLaura Dontae Kennedy [facility] [place] ORDER[place]LESFinal Result documented in this encounter Visit Diagnoses Not on filedocumented in this encounter Additional Health Concerns AssessmentNoted TimePHQ-9 Depression Total Score: 9:00 AM EDT documented as of this encounter Care Teams Team MemberRelationshipSpecialtyStart DateEnd Date Services, [facility] [address] [place], [place] PCP - GeneralFamily Medicine02/24/25documented as of this encounter
--- OUTSIDE RECORDS SUMMARY | 2025-08-04 10:42 | XMS_ITS | Encounter Summary ---
Author Organization [facility] tem Address [facility] [id number] [address] [place] [address] Care Team Providers Care Loom Doffer Name Role Phone Services, [facility] Primary Care Provider Reason for Visit * Cardiology (Routine) - AuthorizedSpecialtyDiagnoses / ProceduresReferred By ContactReferred To Contact Diagnoses Chest pain, unspecified type Shortness of breath Procedures Nuc stress Lexiscan Ileana Kennedy MD [address] [place] [address] Phone: tel: fax: Referral IDStatusReasonStart DateExpiration DateVisits RequestedVisits [id number]/3/202510/3/202655 Encounter Details DateTypeDepartmentCare Team (Latest Contact Info)Swbpostbawl38/30/2025 10:42 AM EDT - 08/04/2025 11:59 PM EDTHospital Encounter [facility] - Cardiovascular [address] [place] [address] Ileana Kennedy MD [address] [place] [address] Arrived Discharge Disposition: Home Social History Tobacco UseTypesPacks/DayYears UsedDateSmoking Tobacco: NeverSmokeless Tobacco: NeverAlcohol UseStandard Drinks/WeekCommentsNot Currently0 (1 standard drink = 0.6 oz pure alcohol)PHQ-2AnswerDate RecordedTotal Ivyaa339/17/2021Childcare AnswerDate LdzeboddVxautznqrQrqodld83/12/2019EmploymentAnswerDate Recorded OyjnkjidqcKjwljjt91/12/2019Hunger ScreeningAnswerDate RecordedWithin the past 12 months we worried whether our food would run out before we got money to buy more.Never True07/08/2025Within the past 12 months the food we bought just didn't last and we didn't have money to get more.Never True07/08/2025Purpose - LifeAnswerDate RecordedPurpose and direction in ruuqNchngxs11/23/2021 CommentsNoSex and Gender InformationValueDate RecordedSex Assigned at BirthNot on fileLegal QyzEdyjvh18/06/2015 11:22 AM EDTGender IdentityNot on fileSexual OrientationNot [...] Plan of Treatment DateTypeDepartmentCare Team (Latest Contact Info)Dyqzfbxdqey49/13/2025 2:15 PM ESTOffice Visit [facility] [address] [place] [address] Eliel Childers MD [address] [facility] [place] [address] documented as of this encounter Procedures Procedure NamePriorityDate/TimeAssociated DiagnosisCommentsNUC STRESS LEXISCAN Cypucme0408/04/2025 11:58 AM EDT Chest pain, unspecified type Shortness of breath documented in this encounter Results * Nuc stress Lexiscan (08/04/2025 11:58 AM EDT)ComponentValueRef RangeTest MethodAnalysis TimePerformed AtPathologist SignatureTarget FQ172emzSCRPMGQWGH QG03oktMCUJPRXJACDvumam peak DG087pwaMRJULDREDLGzsnvokx Systolic JK073maSz SECTRAIECGDiastolic NS57eiEyQVEPIJCWQMTwpdsf peak systolic QW965lnBdUHOFACJIAE Diastolic GV93drVwGSNPBHZKYEHO48ovdIYJMTQKACCGhirxx recovery systolic BP143 mmHgSECTRAIECGDiastolic FI97apHmFAOEMSWABAExlwvgh HR70%SECTRAIECGNuc Stress EF 72%SECTRAIECGEnd diastolic volume (mL)65mLSECTRAIECGEnd [...] in Patients With Stable Ischemic Heart Disease [facility] Volume 69, Issue 17FebruaryFebruary 2017 High risk (>3% annual or [place]) 1. Severe resting LV dysfunction (LVEF <35%) [...] Intermediate risk (1% to 3% annual or [place]) 1. Mild/moderate resting LV dysfunction (LVEF 35% to 49%) not readily explained by non coronary causes. 2. Resting perfusion abnormalities in 5%-9.9% of the myocardium in patients without a history or prior evidence of [place] 3. Stress-induced perfusion abnormality encumbering 5%-9.9% of the myocardium or stress segmental scores indicating 1 vascular territory with abnormalities but without LV dilation 4. Small wall motion abnormality involving 1-2 segments and only 1 coronary bed. Low Risk (Less than 1% annual or [place]) 1. Normal or small myocardial perfusion defect [...] 72%. Authorizing ProviderResult TypeResult StatusLaura Dontae Kennedy [facility] [place] STRESS ORDERABLESFinal Result documented in this encounter Visit Diagnoses Not on filedocumented in this encounter Administered Medications Medication OrderMAR ActionAction DateDoseRateSite regadenoson (LEXISCAN) injection 0.4 mg 0.4 mg, intravenous, Once, On Juhi 08/04/25 at 0900, For 1 dose, Administer over 10 seconds followedby 5 mL saline flush. Given08/04/2025 10:28 AM EDT0.4 mgdocumented in this encounter Additional Health Concerns AssessmentNoted TimePHQ-9 Depression Total Score: 009/ 9:00 AM EDT documented as of this encounter Care Teams Team MemberRelationshipSpecialtyStart DateEnd Date Services, [facility] [address] [place], [place] PCP - GeneralFamily Medicine02/24/25documented as of this encounter
[2025-08-05 12:06] VITALS: BP 150/83; PULSE 80; TEMP 36.7; O2SAT 97; BMI 32.1
--- OUTSIDE RECORDS SUMMARY | 2025-08-05 12:14 | XMS_ITS | Patient Health Record ---
Author Organization [facility] vices Address [address] [place], [place] [address] Care Team Providers Care Laboratory Cureman Name Role Phone Roseline Luque Primary Care Provider Estefanía Freeman Unavailable [phone] Shawna Melara Unavailable [phone] Nubia Alvarado Unavailable Tessie Philippe Unavailable [phone] Robin Aguayo Unavailable [phone] Allergies Allergen (clinical drug ingredient) Drug/Non Drug Allergy documented on EMR Reaction Allergy Type Onset Date Status penicillin V Penicillin V Potassium Hives , Rash Drug Ian rgy ActiveHoneyHivesDrug AllergyActive Results Component Value Reference Range Notes POCT A1C Reviewed date:02/10/2025 01:51:52 PM Interpretation: Performing Lab: Notes/Report: Electrocardiogram (EKG) Reviewed date:10/28/2024 02:44:54 PM Interpretation: Performing Lab: Notes/Report: Electrocardiogram (EKG) Reviewed date:10/28/2024 02:44:54 PM Interpretation: Performing Lab: Notes/Report: POCT A1C Reviewed date:10/12/2024 10:18:14 AM Interpretation:7.8 Performing Lab: Notes/Report: IRON BINDING CAPACITY (IBC) IRON AND % SATURATION Reviewed date:02/04/2025 09:16:17 AM Interpretation: Performing Lab: Notes/Report: UNSATURATED IBC 331 112-347 ug/dL IRON LWZUHEL768031-135 ug/dLIRON GNMTYYWCUM9735-63 %KHWP4230-689 ug/dLFERRITIN Reviewed date:02/04/2025 09:16:24 AM Interpretation: Performing Lab: Notes/Report:IVHAXQXS6380-302 ng/mLCBC W/AUTO DIFF Reviewed date:02/04/2025 09:16:12 AM Interpretation: Performing Lab: Notes/Report:WBC5.43.6-11.0 THDS/CMMRBC4.123.80-5.20 MILL/GBKJJY59.611.9-16.0 G/DLHCT36.935-47 %AMM5416-067 fLMCH28.226.0-33.0 wjKUNN16.432.0-35.0 g/dlRDW13.3 11.2-14.8 %QNYLCGKJ640494-386 THOUS/BNJSVHGFDFYJOO63.545-75 %SAFFUFLRXYC14.520- 45 %MONOCYTES9.80-13 %EOSINOPHILS4.30-5 %BASOPHILS0.70-2 %IMMATURE GRAN0.20-2 % ABS NEUTROPHILS2.561.9-8.0 K/uLABS LYMPHOCYTES2.020.9-5.2 K/uLABS MONOCYTES0.53 0.1-1.0 K/uLABS EOSINOPHILS0.230.0-0.80 K/uLABS BASOPHILS0.040.0-0.2 K/uLABS IMMATURE GRAN0.010.00-0.06 K/uL UNLESS OTHERWISE INDICATED, ALL TESTING PERFORMED AT: [employer] [address] [place] [address] WRAPPER SELECTOR: BONY BLEVINS M.D. CLIA NUMBER [id number] CAP ACCREDITATION AUID [id number] B12 AND FOLIC ACID Reviewed date:02/04/2025 09:16:21 AM Interpretation: Performing Lab: Notes/Report:VITAMIN [id number] pg/mL It has been reported that between 5 and 10% of patients with values between 200 and 400 pg/ml may experience neuropsychiatric and hematologic abnormalities due to occult B12 deficiency. Less than 1% of patients with values above 400 pg/ml will have symptoms. FOLIC ACID, SERUM19.6>5.4 ng/mLBASIC METABOLIC PANEL Reviewed date:03/18/2025 07:53:12 AM Interpretation: Performing Lab: Notes/Report: PERFORMED AT [facility] [address],[place] [address] not use a race coefficient. CKD-EPI 2020 equation that does Reported eGFR is based on gnvKDKLHQ028296-600 mmol/LPOTASSIUM4.73.5-5.0 mmol/L MPZTZJBC69079-313 mmol/LCARBON MGEVMZT5300-51 mmol/LANION VEX96-97 mmol/LBLOOD UREA BECRTKJL748-82 mg/dLCREATININE0.670.40-1.00 mg/dLMETHOD TRACEABLE TO IDMS IKUOGEBJSANZOJK49877-91 mg/rTHYRDTRD16.18.5-10.5 mg/dLEGFR (CKD-EPI) NON-RACE DEPENDENT>90>=60 ml/min/1.73sq.mBRAIN HEAD W CONT Reviewed date:03/28/2025 11:04:43 AM Interpretation: Performing Lab: Notes/Report: SEE RESULTS BELOW CT BRAIN W CONT, 03/24/2025 12:59 PMKNEE LT MIN 4 VWS Reviewed date:03/28/2025 08:14:55 AM Interpretation: Performing Lab: Notes/Report: SEE RESULTS BELOW XR KNEE LT MIN 4 VWS: 03/24/2025 12:42 PMKNEE RT MIN 4 VWS Reviewed date:03/28/2025 08:14:40 AM Interpretation: Performing Lab: Notes/Report: SEE RESULTS BELOW XR KNEE RT MIN 4 VWS: 03/24/2025 12:42 PM Reason For Referral Reason [id number]- [place] #15 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 Melara's box to fill out.Holland Amy 11/29/2024 03:24:26 PM >Called pt and reviewed that her insurance is going to cover crown @ 100%. Pt said she is at the hospital right now dealing with appts to find out if she is getting hip/knee surgery. Explained that we would be holding off on scheduling for right now anyway due to Dr. Melara's schedule not being open yet. Told her I would give her a call once we know what Dr. Melara's schedule is going to be and then if she is ready to schedule at that point then we can get her set up for some appts. Pt agreed. Referral Priority Routine Reason needs colonoscopy Diagnosis 1 Screening for colon cancer (Z12.11) Referral Organization Main Referring Provider First Name Roseline Referring Provider Last Name Rebel Referring Provider Speciality Internal M edicine Referred Provider Rosario Metzger General Surgery Referred Provider Specialty General Surg dipti Referral Priority Routine Medications Medication SIG (Take, Route, Frequency, Duration) Notes Start Date End Date Status glyBURIDE 5 MG 1 (one) Oral Once a day; Duratio n: 90 days 09/25/2020ActiveReliOn Pen Banks 31G X 6 MM; Duration: 25 DaysActivetraMADol HCl 50 MG1 tablet as needed Orally twice a day; Duration: 5 days5Active Benzonatate 100 MG1 capsule as needed Orally Three times a day; Duration: 14 days11/24/2024Not-TakingLisinopril 40 MG1 (one) Oral daily; Duration: 90 days 04/27/2020ActiveLidocaine 5 %1 patch remove after 12 hours Externally Once a day; Duration: 14 days5ActiveAllergy (Cetirizine) 10 MG1 tablet Orally Once a day; Duration: 30 day(s)5ActivetraMADol HCl 50 MG1 tablet as needed Orally every 8 hrs; Duration: 5 days5ActiveCarvedilol 25 MG1 tablet with food Oral Twice a day; Duration: 90 daysActivemetFORMIN HCl ER 750 MG1 tablet with evening meal Orally Once a day; Duration: 30 day(s)06/20/2025 ActiveDULoxetine HCl 60 MG1 capsule Orally Once a day; Duration: 30 days 5Active Immunizations Vaccine Route Administration Date Status Comme nts *Pneumococcal conjugate PCV 13-VFC IM Intramuscular 10/01/2013 Administered Status:Complet e ,Reason:Given or N/A Influenza (split), 3 yrs and above IM Intramuscular 08/18/2012 Administered Status:Complet e ,Reason:Given or N/A Influenza (split), 3 yrs and above OTH Other/Miscellaneous 09/10/2013 Administered Status:Complet e ,Reason:Given or N/A Influenza, quadrivalent, split, preservative free, 3 years or older OTH Other/Miscellaneous 10/24/2017 Administered Status:Complet e ,Reason:Given or N/A ,see scanned document Influenza, seasonal, injectable, preservative free, 3 yrs and above IM Intramuscular 07/13/2015 Administered Status:Complet e ,Reason:Given or N/A Social History Tobacco Use: Social History Observation Description Date Details (start date - stop date) Never Smoker NA - NA Sex Assigned At : Social History Observation Description Sex Assigned At Female Household Question Answer Notes Number of adults in household: 2 Number of children in household:0Tobacco Use/Smoking Question Answer Notes Tobacco use: nonsmoker patient enter ed data CAGE-AID Questionnaire (2018 Edition) Question Answer Notes Have you ever felt that you ought to cut down on your drinking or drug use? No patient entered data Have people annoyed you by c riticizing your drinking or drug use? No patient entered data Have you ever felt bad or gu ilty about your drinking or drug use? No patient entered data Have you ever had a drink or used drugs first thing in the morning to steady your nerves or to get rid of a hangover? No patient entered data CAGE-AID Score 0 InterpretationNegativePRAPARE Question Answer Notes Date Completed/Updated: 02/01/2025 rosalee nt entered data What is your current housing situation? I have housing patient entered data Are you worried about losing your housing? No patient entered data What is the highest level of school that you have finished? Less than a high school degree patient entered data What is your current work situation? Unemployed and seeking work patient entered data In the past year, have you o r any family members you live with been unable to get any of the following when it was really needed? Check all that apply Food patient entered data Has lack of transportation k ept you from medical appointments, meetings, work or from getting things needed for daily living? No patient entered cyndy a How often do you see or talk to people that you care about and feel close to? (For example: talking to friends on the phone, visiting friends or family, going to mandaen or club meetings) 3 to 5 times a week patient entered data How stressed are you? Stress is when someone feels tense, nervous, anxious, or can't sleep at night because their mind is troubled Not at all patient entered data In the past year have you sp ent more than 2 nights in a row in a penitentiary, long term, longterm center, or juvenile correctional facility? No patient entered data Are you a refugee? No patient en tered data What country are you from? [place] freya cowan entered data Do you feel physically and emotionally safe where you currently live? Yes patient entered data In the past year, have you b een afraid of your partner or ex-partner? No patient entered data PRAPARE Score: 8 Section Notes: Nutrition counseling focusin g on a low sodium and low sugar diet discussed with the patient, as well as appropriate weekly exercise and increased activity as tolerated to work towards a more optimal body mass index for improved overall health. Nutrition counseling focusin g on a low sodium and low sugar diet discussed with the patient, as well as appropriate weekly exercise and increased activity as tolerated to work towards a more optimal body mass index for improved overall health. Nutrition counseling focusin g on a low sodium and low sugar diet discussed with the patient, as well as appropriate weekly exercise and increased activity as tolerated to work towards a more optimal body mass index for improved overall health. Nutrition counseling focusin g on a low sodium and low sugar diet discussed with the patient, as well as appropriate weekly exercise and increased activity as tolerated to work towards a more optimal body mass index for improved overall health. Nutrition counseling focusin g on a low sodium and low sugar diet discussed with the patient, as well as appropriate weekly exercise and increased activity as tolerated to work towards a more optimal body mass index for improved overall health. Nutrition counseling focusin g on a low sodium and low sugar diet discussed with the patient, as well as appropriate weekly exercise and increased activity as tolerated to work towards a more optimal body mass index for improved overall health. Problems Problem Type SNOMED Code ICD Code Onset Dates Problem Status W/U Status Risk Notes Problem Polyneuropathy due t o type 2 diabetes mellitus (786958365) Type 2 diabetes mellitus with diabetic polyneuropathy (E11.42) ActiveconfirmedProblemChronic pain (75043490)Other chronic pain (G89.29)Active confirmedProblemFibromyalgia (317224334)Fibromyalgia (M79.7)Activeconfirmed ProblemOveractive bladder (713401249)Overactive bladder (N32.81)Activeconfirmed ProblemLong-term current use of insulin (451367675)intermodal customer service (current) use of insulin (Z79.4)ActiveconfirmedProblemSeasonal allergy (099201691)Seasonal allergies (J30.2)ActiveconfirmedProblemAnxiety (21792691)Anxiety (F41.9)Active confirmedProblemBMI 30+ - obesity (294395025)BMI 32.0-32.9,adult (Z68.32)Active confirmedProblemObesity (872902709)Obesity (BMI 30-39.9) (E66.9)Activeconfirmed ProblemArthritis of hip (32195039)Arthritis of hip (M16.10)Activeconfirmed ProblemAnemia (744549607)Acute anemia (D64.9)ActiveconfirmedProblemObese class II (100515737474955)BMI 39.0-39.9,adult (Z68.39)ActiveconfirmedProblemThyroid nodule (595132646)Thyroid nodule (E04.1)ActiveconfirmedProblemGastroesophageal reflux disease (455963639)GERD (gastroesophageal reflux disease) (K21.9)Active confirmedProblemType II diabetes mellitus without complication (966164465) Diabetes (E11.9)ActiveconfirmedProblemHyperlipidemia (65997627)Hyperlipidemia (E78.5)ActiveconfirmedProblemRestless legs (13151415)Restless leg (G25.81)Active confirmedProblemDiabetic neuropathy (466058325)Diabetic neuropathy (E11.40) ActiveconfirmedProblemObstructive sleep apnea syndrome (54937883)HERMILA (obstructive sleep apnea) (G47.33)ActiveconfirmedProblemType 2 diabetes mellitus (01567334)Type 2 diabetes mellitus (E11.9)ActiveconfirmedProblemHypertension (69517607)HTN (hypertension) (I10)ActiveconfirmedProblemVitamin D deficiency (86656854)Vitamin D deficiency (E55.9)ActiveconfirmedProblemAge-related osteoporosis (109660422)Post-menopausal osteoporosis (M81.0)Activeconfirmed Comment:family hx, shoulder MRI shows deterioration per patient no Hx of smoking f/u after testing completed PVU, ProblemVitamin D deficiency (33475269)Vitamin D insufficiency (E55.9)Active confirmed Comment:Suboptimal at 26 start calcium with Vitamin D, ProblemChronic back pain (348323626)Chronic back pain (M54.9)Activeconfirmed Comment:MRI showed canal stenosis and severe DJD and faucet involvement I explained to her the findings She thinks that pain on the left side is due to large spleen I explained she needs an exam before any testing has to be done, and she has no Hx or lab disorders indicating it. It is mainly referral pain from back pain She would like to wait till Dr. Castro is back and discuss it with her., ProblemDeep venous thrombosis (934713618)DVT (deep venous thrombosis) (I82.409) Activeconfirmed Comment:Continue anti-thrombin therapy for 3 mos and will repeat ultrasound. Discussed med and when to seek additional care. F/u 3 mos., ProblemChronic low back pain (finding) (522311689)Chronic lower back pain (M54.50)ActiveconfirmedProblemDysphagia (75806814)Symptom, dysphagia (787.2) (787.2)12/03/2007Problem resolvedconfirmedProblemAcute cystitis (04142179) Cystitis, acute (595.0) (595.0)02/22/2008Problem resolvedconfirmedProblemNeck sprain (008279903)Neck sprain and strain (847.0) (847.0)01/03/2009Problem resolvedconfirmedProblemAcute bronchitis (disorder) (04757148)Bronchitis, acute (466.0) (466.0)06/24/2008Problem resolvedconfirmedProblemCephalalgia (55860757) Cephalalgia (R51.9)01/19/2009Problem resolvedconfirmedDescription:Headache ProblemCough (81580753)Cough (R05.9)07/02/2007Problem resolvedconfirmed Vital Signs Heart Rate 82 /min 06/10/2025 Yara Bowling 06/10/2025 10:32:36 AM EDT > Temperature 98.1 degrees Fahrenheit 06/10/2025 Yara Nelson 06/10/2025 10:32:36 AM EDT > Respiratory Rate 18 /min 06/10/2025 Enrique Bowling 06/10/2025 10:32:36 AM EDT > Oximetry 97 % 06/10/2025 Dash Yara 06/10/2025 10:32:36 AM EDT > Blood pressure diastolic 89 mm Hg 06/10/2025 Jerson bryanYara 06/10/2025 10:32:36 AM EDT > Height-cm 162.56 cm 06/10/2025 Dash Yara 06/10/2025 10:32:36 AM EDT > Weight-kg 88 kg 06/10/2025 Dash Yara 06/10/2025 10:32:36 AM EDT > Height 64 in 06/10/2025 Dash Yara 06/10/2025 10:32:36 AM EDT > Blood pressure systolic 155 mm Hg 06/10/2025 Yara Nelson 06/10/2025 10:32:36 AM EDT > Weight 194 lbs 06/10/2025 Dash Yara 06/10/2025 10:32:36 AM EDT > BMI 33.3 kg/m2 06/10/2025 Dash Yara 06/10/2025 10:32:36 AM EDT > Encounters Encounter Location Date Provider Diagnosis [facility] [address] [place] [id number] 09/14/2024 Shawna Melara BMI 32.0-32.9,adul t Z68.32 ; Dietary counseling Z71.3 ; Exercise counseling Z71.82 and Other dental procedure status Z98.[address] [place] [id number] 10/12/2024 Roseline Rebel Arthritis of hip M 16.10 ; Preoperative cardiovascular examination Z01.810 ; Type 2 diabetes mellitus E11.9 and HTN (hypertension) I10 [facility] [address] [facility] [place] [id number] 10/28/2024 Roseline Rebel Pre-op evaluation Z01.818 and HTN (hypertension) I10 [facility] [address] [facility] [place] [id number] 11/24/2024 Roseline Rebel Stomach upset K30 and URTI (acute upper respiratory infection) J06.9 Main [address] [facility] [place] [id number] 02/01/2025 Roseline Rebel Shakiness R25.1 ; Acute anemia D64.9 and Screening for colon cancer Z12.11 [facility] [address] [facility] [place] [id number] 02/10/2025 Roseline Rebel Type 2 diabetes me llitus with diabetic polyneuropathy E11.42 ; Pain in right knee M25.561 ; Pain in left knee M25.562 and Frequent headaches R51.9 Main [address] [place], [place] [id number] 06/10/2025 Roseline Rebel Pain in left hip M 25.552 ; Pain in left knee M25.562 and Type 2 diabetes mellitus with diabetic polyneuropathy E11.42 Main [address] [place], [place] [id number] 08/18/2024 Roseline Rebel [id number] [place] [address]/14/2024[facility] [place] [id number]/20/2024Ramsha [address] [place] [address]/02/2024Ramsha AqeelType 2 diabetes mellitus E11.9Dental [address] [place], [place] [id number]/05/2024Clizeth MelaraMain[address] [place] [address]/23/2024Ramsha [address] [place] [id number] [address] [place], [place] [id number] 10/26/2024Ramsha [address] [place], [place] [id number] Y[address]dXcar[address] [place], [place] [id number] [address]Mfhy[address] [place] [id number] ZbvqlCqkg[address] [place], [place] [id number] AqeelHTN (hypertension) I[address] [place] [id number] AqeelType 2 diabetes mellitus E11.9Main [address] [place], [place] [id number] [address]ggrvZg[address] [place], [place] [id number] [address] [place], [place] [id number] [address] [place] [id number] 02/17/2025Ramsha [address] [place], [place] [id number] AqeelScreening for cardiovascular condition Z13.9Ajrkjrr[address] [place], [place] [address]Ramsha [address] [place], [place] [id number] Ixe[address]Odao[address] [place], [place] [id number] 05/16/2025Komal [address]Suqy[address] [place], [place] [id number] [address] [place], [place] [id number] AqeelType 2 diabetes mellitus with diabetic polyneuropathy E11.[address] [place], [place] [address]/24/2025Ramsha [address] [place], [place] [id number] 08/02/2025Ramsha AqeelPain in left hip M25.456[address] [place] [id number]/31/2025Nubia Alvarado Assessments Encounter Date Diagnosis (ICD Code) Assessment Notes Treatment Notes Treatment Clinical Notes Section Notes 06/10/2025 Pain in left hip (ICD-10 - M25.5 52) Pt had a fall in office today but was fine and back to baseline afterward reports no worsening pain. Still recommended to go to ER for xrays but pt refused. For her chronic pain she is already seeingortho and MRI done but no results available. Her ortho provider is out of town and pain is worse inlast 2 days. I will treat with short course tramadol and toradol given in office. toradol side effects disscussed. Advise to use miralax to avoid constipation. Discussed reassuring vs non reassuring symptoms and when to call the office or go to ER. PVU Adviseto see othro as soon as possible. Iman toradol was sent to [facility] pharmacy but they dont take her insurance thats [place] 02/10/2025Type 2 diabetes mellitus with diabetic polyneuropathy (ICD-10 - E11.42) A1c 8.1 mild worse from 7.8 in oct. With her age I will not do any changes. The patient is currently on Metformin and glyburide I will continue the same regimen I recommend home blood sugar readings to be monitored daily Pt was advised to log the reading with timings and to bring it on the next visit so we can adjust the dose of medications as needed. Pt was advised to inspect the feet daily. Patient was reminded to have yearly eye exam to look for diabetic retinopathy and yearly podiatristvisit and PVU Pt will f/up with repeat labs in 3 months. Also for her neuropathy will trial duloxetine 30 mg daily, SI discussed. 02/01/2025Shakiness (ICD-10 - R25.1)Unclear etiology. Pt is fixated on having pituitary problem and stressed about it as her ER doctor mentioned about it. She really wants to get CT head to rule out pituitary issues. I have low concerns for alex disease or other hormonal issues as her Blood pressure, glucose are normal. TSH normalfrom ER. Likely its acute stress to body due to viral infection. Other differentials include anemia, constipation related. Advise to keep herself hydrated. CT head order if normal and her symptoms are persistent will consider endocrinology referral as well as SALESMAN/OWNER referral to rule out post menopausal symptoms.03/11/2025Screening for cardiovascular condition (ICD-10 - Z13.6)06/10/2025Pain in left knee (ICD-10 - M25.562)08/02/2025Pain in left hip (ICD-10 - M25.552)5Acute anemia (ICD-10 - D64.9)Noted to have low hemoglobin. I will repeat blood work. No bleeding reported.11/24/2024URTI (acute upper respiratory infection) (ICD-10 - J06.9) URI symptoms, likely Viral. No concerns for bacterial infection at this point. We will continue conservative management at this point. Patient was encouraged to increase fluid intake, warm salt water gargles, cool moist mist. Patient advised to take rest as much as possible. Advised patient to continue taking Tylenol and ibuprofen as needed for pain. Patient was advised to call the office or head to emergency room, if symptoms worsen and PVU 11/24/2024Stomach upset (ICD-10 - K30)Her stomach upset is also likely viral illness. Advise to drink plenty of water. If worsening let us know11/17/2024Type 2 diabetes mellitus (ICD-10 - E11.9)09/14/2024MI 32.0-32.9,adult (ICD-10 - Z68.32)09/06/2024Type 2 diabetes mellitus (ICD-10 - E11.9)10/12/2024Preoperative cardiovascular examination (ICD-10 - Z01.810)PTs blood work reviewed. Also reviewed note from Cardiology who cleared her for surgery. Patient ismedically optimized and may proceed with the surgery.10/12/2024rthritis of hip (ICD-10 - M16.10)10/28/2024Pre-op evaluation (ICD-10 - Z01.818)Blood work reviewed from 10/25/2024 which was done in hospital. Her HR and BP normal in office today. I will get EKG and depending on the results will decide whether she needs further cardiac clearance or not. Pt agrees with the plan.10/28/2024HTN (hypertension) (ICD-10 - I10)Bp well controlled. Continue current foocsocnfpn58/27/2025HTN (hypertension) (ICD-10 - I10)06/20/2025Type 2 diabetes mellitus with diabetic polyneuropathy (ICD-10 - E11.42)10/12/2024Type 2 diabetes mellitus (ICD-10 - E11.9)A1c done in office showed improved A1c 7.8 today. Will continue current medcations. Holding meds per surgeon recommendations.09/14/2024ietary counseling (ICD-10 - Z71.3)06/10/2025Type 2 diabetes mellitus with diabetic polyneuropathy (ICD-10 - E11.42)Reports SI from metformin. Will stop and Start Jardiance 25 mg daily. will f/u in 1 week02/10/2025Pain in right knee (ICD-10 - M25.561)02/01/2025Screening for colon cancer (ICD-10 - Z12.11)09/14/2024Exercise counseling (ICD-10 - Z71.82)02/10/2025Pain in left knee (ICD-10 - M25.562) 02/10/2025Frequent headaches (ICD-10 - R51.9)With her headache and cold/shakiness episoded Will get CT scan to evaluate pituatary. Ordered CT on last appt but per pt [facility] never received the order. So ordering again 10/12/2024HTN (hypertension) (ICD-10 - I10)09/14/2024Other dental procedure status (ICD-10 - Z98.818) Plan Of Treatment Next Appt Details Provider Name:Roseline Luque, 08/08/2025 11:15:00 AM, [address] [place], [id number], Insurance Providers Payer Name Payer Address Payer Phone Subscriber Number Group Number Insured Name Patient Relationship to Insured Coverage Start Date Coverage End Date [employer]age [address] [place] [address] [phone] [id number] 0 Jose Negra Self - patient is the insured [address] [address] [place] [id number], NegraSef - patient is the [id number] 2023 Medications Administered Medication Instructions Date of Administration Dosage Notes Ketorolac Tromethamine 530 mg Medical (General) History Medical History History ICD Code Anxiety and depression Breast pain in femaleCandidiasisChronic back painCoughDiabetes type 2, controlledDysuriaFunctional bowel diseaseGERD (gastroesophageal reflux disease) HyperlipidemiaHypertensionSchizophreniaMyalgia (729.1)Neck swellingPain with bowel movementsPolyarthropathy/polyarthritis NOS (716.5)Reflux, esophageal (530.81)Restless legS/P hernia repairSerum calcium elevatedVitamin D deficiency Vulvar burningSurgical History Surgery Date(Month/Year) Cholecystectomy Hip replacementKnee arthroscopyKnee [id number] [id number] Lyphoma removed from backLumpectomyEXTENSIVE HYSTERECTOMYright hip replacement december 2024Hospitalization History Reason Date(Month/Year) see surgical hx back and over active [id number]/2024
--- OUTSIDE RECORDS SUMMARY | 2025-08-05 12:15 | XMS_ITS | Patient Health Record ---
Author Organization [facility] Address [address] [place] [address] Care Team Providers Care Research Environmental Engineer Name Role Phone Juan Casey Unavailable [phone] RubinaCiriloVeronicadaniellaJoserosibel Unavailable Allergies Allergen (clinical drug ingredient) Drug/Non Drug Allergy documented on EMR Reaction Allergy Type Onset Date Status PENICILLIN GUnknownDrug AllergyActive Results Component Value Reference Range Notes Surgery Scheduling Reviewed date:11/26/2024 09:30:40 AM Interpretation:NEEDS CARDIAC CLEARANCE Performing Lab: Notes/Report: NEEDS CARDIAC CLEARANCE Social Sec number: [id number] Primary Insurance Company:MEDICARE ANTHEM ADVANTAGE/[place] Zamora/Assist:DR CASEY/NEEDS ASSISTSurgery Location:TMHSurgery Date & Time:11/01/24 MAKE HER 2ND TOTAL PLEASESurgery End Time:150 MINSProcedure:RIGHT TOTAL HIP REPLACEMENT Special Equipment:[facility]:-Mini C-Arm:-Diagnosis: PRIMARY OSTEOARTHRITIS RIGHT HIP M16.11Admission Type:23 HOURAnesthesia Type/CPNB:BVZJWQNjn-Awoy-eh Appointment Date:2 WEEKSLatex AllergyNOLab Location: TM[facility]ab Date/Time:PAT APPT 10/04@11Lab Time:-[facility] Date/TRIGHT HIP Screening Nurse:Khloe Physician:JUNAID DAVE APRN CARDIACClearance Appt Date/[facility] 10/28@8:15 WITH GUTIERREZ MCKEON PAHistory & Physical Appointment Date/:-Pre-op labs/Chest Order:-PT Appointment Date/Time:-Had or have MRSA/Direct contact w MRSA pt/[facility] TOTAL - PREOP- CBC WITH DIFF, BMP, TYPE AND SCREEN, MRSA BY PCR BILATERAL NARES, EKG, TOTAL JOINT CLINIC, PT / OT EVALUATION , Reviewed date:10/12/2024 08:23:29 AM Interpretation: Performing Lab: Notes/Report: PEH HIP RIGHT W/PELVIS 2-3V- [id number] Reviewed date:09/16/2024 10:29:04 AM Interpretation: Performing Lab: Notes/Report: CMP Reviewed date:01/25/2025 03:36:09 PM Interpretation: Performing Lab: Notes/Report: PEH Knee Left 2v-[id number] Reviewed date:01/25/2025 02:36:51 PM Interpretation: Performing Lab: Notes/Report: CBC with diff Reviewed date:01/25/2025 03:36:18 PM Interpretation: Performing Lab: Notes/Report: PEH HIP LEFT W/ PELVIS 2-3V-[id number] Reviewed date:01/25/2025 02:37:08 PM Interpretation: Performing Lab: Notes/Report: PEH HIP RIGHT W/PELVIS 2-3V- 11746 Reviewed date:01/25/2025 02:00:06 PM Interpretation: Performing Lab: Notes/Report: PEH HIP RIGHT W/PELVIS 2-3V- 80918 Reviewed date:03/17/2025 01:17:12 PM Interpretation: Performing Lab: Notes/Report: Type and Screen Blood Type Reviewed date:01/25/2025 03:35:47 PM Interpretation: Performing Lab: Notes/Report: Surgery Scheduling Reviewed date:01/11/2025 10:01:32 AM Interpretation:EDWARD ARZOLA Performing Lab: Notes/Report: EDWARD HANNAHocial Sec number:[id number] Insurance Company:MEDICARE ANTHEM ADVANTAGE/[place] VASurgeon/Assist:DR CASEY/NEEDS ASSISTSurgery Location:[facility] Surgery Date & Time:12/29/24@10:50Surgery End Time:150 MINSProcedure:RIGHT TOTAL HIP REPLACEMENT 80810Lmuefhx Equipment:OFFICE WILL NOTIFY ZIMMERBMI:-C-Arm:NO Mini C-Arm:-Diagnosis:PRIMARY OSTEOARTHRITIS RIGHT HIP M16.11Admission Type:23 HOURAnesthesia Type/CPNB:VVFRCEBqz-Ijre-dv Appointment Date:2 WEEKSLatex Allergy NOLab Location:BVHLab Time:-[facility] Date/PRASANTH Lewis:JANINE Marion Physician:CAR CUSTOMIZER DR LOPEZ CLEARED HERClearance Appt Date/T GUTIERREZ MCKEON [facility] FREMONTHistory & Physical Appointment Date/:- Pre-op labs/Chest Order:-PT Appointment Date/Time:-Had or have MRSA/Direct contact w MRSA pt/[facility]-Had dental problems/Yes-no/type:-Type and Screen Blood Type Reviewed date:01/25/2025 02:57:20 PM Interpretation: Performing Lab: Notes/Report: CMP Reviewed date:01/25/2025 02:57:32 PM Interpretation: Performing Lab: Notes/Report: CBC with diff Reviewed date:01/25/2025 02:57:42 PM Interpretation: Performing Lab: Notes/Report: Basic Metabolic Prof Reviewed date:06/14/2025 08:10:32 AM Interpretation: Performing Lab: Notes/Report: [facility] [address] [place] [address] Compliance Professional: Bennie Odonnell MDNA (Sodium)407196-434 mmol/LK (Potassium)4.33.7- 5.3 mmol/AMtgyfjef81039-965 mmol/IAN20024-97 mmol/LAnion Qaq87-10 mmol/LGlucose 54516-64 mg/dLBUN (Urea N)188-23 mg/dLCreatinine0.60.50-0.90 mg/dLeGFR>90>60 mL/min/1.73m2 These results are not intended for use [...] following therapy that affects renal tubular secretion. BUN/CRE Rwyvk464-78Ifamfdn61.08.6-10.4 mg/dLPerforming Lab:see noteTMHT - [facility] [address] [place] [address] Type Screen Reviewed date:06/14/2025 08:10:32 AM Interpretation: Performing Lab: Notes/Report: [facility] [address] [place] [address] Compliance Professional: Bennie Odonnell MDType + ScreenSample Expiration 10/28/2024,2359Type + ScreenArm Band Number [id number] + ScreenABO/Rh(D) O NEGATIVEType + Screen Antibody Screen NEGATIVECBC with Diff Reviewed date:06/14/2025 08:10:32 AM Interpretation: Performing Lab: Notes/Report: [facility] [address] [place] [address] Compliance Professional: Bennie Odonnell MDWBC Count7.83.5-11.3 k/uLRBC Count4.553.95-5.11 m/gQTpihdntpvj13.311.9-15.1 g/uMCvomsqtfhg54.836.3-47.1 %MCV89.782.6-102.9 fLMCH 29.225.2-33.5 bwCUTG51.628.4-34.8 g/dLRDW14.311.8-14.4 %Platelet Avaju086163-313 k/uLMPV9.58.1-13.5 fLNRBC Automated0.00.0 per 100 WBCNeutrophil (Seg)6336-65 % Rwocydxjzj8865-39 %Gcpwfkvg11-93 %Ktkiqgkgbf12-7 %Sswdvjlk90-4 %Immature Mkjpogupjto02 %Abs.Neutrophil (Seg)4.941.50-8.10 k/uLAbs. Lymph2.011.10-3.70 k/uLAbs. Monocyte0.680.10-1.20 k/uLAbs. Eosinophil0.050.00-0.44 k/uLAbs. Basophil0.040.00-0.20 k/uLAbs.Imm.Granulocyte0.030.00-0.30 k/uLPerforming Lab: see noteTMHT - [facility] [address] [place] [address] MRSA, DNA, Nasal Reviewed date:06/14/2025 08:10:32 AM Interpretation: Performing Lab: Notes/Report: [address] [address] Compliance Professional: Dallas Burton MD [facility] [address] [place], [place] [address] Compliance Professional: Talon Wright Description.NASAL SWABMRSA, DNA, Nasal NEGATIVENEG NEGATIVE: MRSA DNA not detected by nucleic acid amplification. Results should be used as an adjunct to nosocomial control efforts to identify patients needing enhanced precautions. The test is not intended to identify patients with staphylococcal infections. Results should not be used to guide or monitor treatment for MRSA infections. Performing Lab:see note [facility] - [facility] [address] [place] [address] [facility] [address] [facility] [address] CMP Reviewed date:06/14/2025 07:41:41 AM Interpretation: Performing Lab: Notes/Report: [facility] [address] [place] [address]Afsvbm Buf974980-487 mmol/LPotassium Lvl4.23.4-4.8 mmol/L Kqxmmynh6205-518 mmol/VSE13314-10 mmol/LAnion Jxg567-34Gsnkzpd Lva56385-88 mg/dL ENY007-12 mg/dLCreatinine Lvl0.820.44-1.03 mg/dLBUN Crea Ratio28.010.0-20.0Bili Total0.70.3-1.2 mg/dLAlk Ueoe1601-30 IU/GUPU6635-78 IU/JKII4890-76 IU/LTotal Protein7.46.5-8.1 g/dLAlbumin Lvl3.83.2-4.9 g/dLAG Ratio1.11.1-2.2Calcium Lvl9.9 8.5-10.3 mg/dLCBC w/ Diff Reviewed date:06/14/2025 07:41:41 AM Interpretation: Performing Lab: Notes/Report: [address] [place], [place] [address]NLA4.34.5-11.0 x10*3/mcLRBC4.273.80-5.20 x10*6/zcZVqv63.812.0- 16.0 g/dLHct37.936.0-46.0 %MCV88.980.0-100.0 fLMCH30.027.0-35.0 jvAUSY19.831.0- 37.0 %Ougyierj075157-382 x10*3/ayLTZQ71.811.6-14.8 %Mean Platelet Volume8.16.7- 10.6 fLDiff Auto Reviewed date:06/14/2025 07:41:41 AM Interpretation: Performing Lab: Notes/Report: [address] [address]Gedpqv Auto48.247.2-70.8 %Lymph Auto30.127.2-40.8 %[place] Auto 10.53.7-11.9 %Eos Auto10.40.0-5.4 %Basophil Auto0.80.0-1.5 %Neutro Absolute2.6 1.8-7.7 x10*3/mcLLymph Absolute1.61.0-4.8 x10*3/mcLMono Absolute0.60.1-1.1 x10*3/mcLEos Absolute0.60.0-0.4 x10*3/mcLBaso Absolute0.00.0-0.2 x10*3/mcLABO/Rh Reviewed date:06/14/2025 07:41:41 AM Interpretation: Performing Lab: Notes/Report: [facility] (DEFAULT) [address] [place] [address] [facility] (UNKNOWN) [address] [place] [address]LWK/Rhsurgery date 5ABO/RhABO/Rh: O NEGABSC Auto Reviewed date:06/14/2025 07:41:41 AM Interpretation: Performing Lab: Notes/Report: [facility] (UNKNOWN) [address] [place] [address]MBOB AutoAntibody Screen: Negative ABSC.eGFR Reviewed date:06/14/2025 07:41:41 AM Interpretation: Performing Lab: Notes/Report: [address], [place] [address]Sougprgca GFR>60>=60 mL/min/1.73m? [facility] Laboratories have implemented the eGFR calculation approach that [...] of SCr/? or 1 Age = years XR OR Hip Right Reviewed date:06/14/2025 07:41:20 AM Interpretation: Performing Lab: Notes/Report: Patient Name: Mari Jamison This report was not created by a radiologist, physician, or advanced practice provider. POC Glucose Random Reviewed date:06/14/2025 07:41:20 AM Interpretation: Performing Lab: Notes/Report: [address] [address]VAX Gluc Ulxfjz51067-42 mg/dLPOC Glucose Random Reviewed date:06/14/2025 07:41:20 AM Interpretation: Performing Lab: Notes/Report: [address] [address]DMC Gluc Tvtedr77932-91 mg/dLPOC Glucose Random Reviewed date:06/14/2025 07:41:20 AM Interpretation: Performing Lab: Notes/Report: [address] [address]ANQ Gluc Mrcwak48652-94 mg/dLPOC Glucose Random Reviewed date:06/14/2025 07:41:20 AM Interpretation: Performing Lab: Notes/Report: [address], [place] [address]DFK Gluc Zbtcbh93471-90 mg/dLPOC Glucose Random Reviewed date:06/14/2025 07:41:20 AM Interpretation: Performing Lab: Notes/Report: [address], [place] [address]URU Gluc Ndbfqe72029-61 mg/dLPOC Glucose Random Reviewed date:06/14/2025 07:41:20 AM Interpretation: Performing Lab: Notes/Report: [address], [place] [address]FTH Gluc Ejgwod30035-15 mg/dLPOC Glucose Random Reviewed date:06/14/2025 07:41:20 AM Interpretation: Performing Lab: Notes/Report: [address], [place] [address]GZG Gluc Dywqpj51505-10 mg/dLHgb Reviewed date:06/14/2025 07:41:20 AM Interpretation: Performing Lab: Notes/Report: [address] [address]Ptr0.912.0-16.0 g/dLHct26.836.0-46.0 %Basic Metabolic Profile Reviewed date:06/14/2025 07:41:20 AM Interpretation: Performing Lab: Notes/Report: [address] [address]Gcbaen Jnw367325-454 mmol/LPotassium Lvl3.83.4-4.8 mmol/L Ccbyqvkz03041-713 mmol/XZP95780-88 mmol/LAnion Qfe91-43Quwnxrq Umb87472-65 mg/dL MPB883-70 mg/dLCreatinine Lvl0.710.44-1.03 mg/dLBUN Crea Ratio36.610.0-20.0 Calcium Lvl8.48.5-10.3 mg/dL.eGFR Reviewed date:06/14/2025 07:41:20 AM Interpretation: Performing Lab: Notes/Report: [address] [address]Cglxaukhb GFR>60>=60 mL/min/1.73m? [facility] Laboratories have implemented the eGFR calculation approach that [...] of SCr/? or 1 Age = years POC Glucose Random Reviewed date:06/14/2025 07:41:20 AM Interpretation: Performing Lab: Notes/Report: [address] [address]ZPJ Gluc Dmdhpm18277-76 mg/dLHgb A1c Reviewed date:06/14/2025 07:41:20 AM Interpretation: Performing Lab: Notes/Report: [address] [address]Efu A1c7.74.0-5.6 % A1c Reference Range: 4.0 - 5.6 % Normal 5.7 - 6.4 % Pre-Diabetes > 6.5 % Diabetes eAvg Agkxnxr83018-125 mg/dLMathematical Calc approx. The mean gluc equivalency of A1cPOC Glucose Random Reviewed date:06/14/2025 07:41:20 AM Interpretation: Performing Lab: Notes/Report: [address] [address]YDM Gluc Cdygsz68303-64 mg/dLPOC Glucose Random Reviewed date:06/14/2025 07:41:20 AM Interpretation: Performing Lab: Notes/Report: [address] [address]HTZ Gluc Xvcpzq07620-22 mg/dLPOC Glucose Random Reviewed date:06/14/2025 07:41:20 AM Interpretation: Performing Lab: Notes/Report: [address], [place] [address]UQI Gluc Ncjiuz43310-53 mg/dLPOC Glucose Random Reviewed date:06/14/2025 07:41:20 AM Interpretation: Performing Lab: Notes/Report: [address] [address]QMP Gluc Crlsjm06655-25 mg/dLPOC Glucose Random Reviewed date:06/14/2025 07:41:20 AM Interpretation: Performing Lab: Notes/Report: [address] [address]QZB Gluc Dkyuax22983-87 mg/dLPOC Glucose Random Reviewed date:06/14/2025 07:41:13 AM Interpretation: Performing Lab: Notes/Report: [address] [address]ZLU Gluc Dvcryk64755-96 mg/dLPOC Glucose Random Reviewed date:06/14/2025 07:41:20 AM Interpretation: Performing Lab: Notes/Report: [address] [address]XBT Gluc Bitwdt98815-12 mg/dLPOC Glucose Random Reviewed date:06/14/2025 07:41:13 AM Interpretation: Performing Lab: Notes/Report: [address] [address]ZQR Gluc Nzcoez27208-25 mg/dL Reason For Referral Reason APPROVED ......MEDIC ARE ANTHEM.......10/25.......PRECERT RIGHT TOTAL HIP AT [facility] 10/25/24 Diagnosis 1 Primary osteoarthrit is of right hip (M16.11) Referral Organization [facility] Referring Provider First Name Juan Referring Provider Last Name Carmela Referring Provider Speciality Orthopedic Surgery Referred Organization [facility] Referred Address [address] ,[place],[address], Procedure 1 Arthroplasty Hip Tot al (56026) General Notes Jazmin Dennison 2024 03:16:16 PM > CARELON IS DOWNJesi Tammy 10/13/2024 08:11:01 AM > pending on [employer]. Order ID: [id number], Anticipated Determination Date:10/22/2024, Jazmin Dennison 10/14/2024 12:15:55 PM > still pending, Jazmin Dennison 10/15/2024 09:45:38 AM > APPROVED auth #[id number], Valid 10/25/2024 - 01/22/2025, auth scanned in, faxed to Rosario MetzgerJesi Tammy 12/24/2024 10:24:51 AM > UPDATED FACILITY TO [facility], CURRENT AUTH IS STILL WITHIN APPROVED TIME FRAME. FAXED TO [facility] Referral Priority Stat Reason MEDICARE ANTHEM..... .PRECERT MRI LEFT HIP AT [facility], NOT YET SCHEDULED. Diagnosis 1 Left hip pain (M25.5 52) Referral Organization [facility] Referring Provider First Name Juan Referring Provider Last Name Carmela Referring Provider Speciality Orthopedic Surgery Referred Organization [facility] [address] [facility] Procedure 1 MRI Joint Lower Ext w/o Dye (86901) General Notes Jazmin Dennison 2024 02:32:21 PM > APPROVED Auth #[id number], Valid 03/31/2025 - 06/28/2025, auth scanned in, faxed to Urban Dolan Shannon 04/04/2025 04:07:48 PM >FAXED ORDER TO [facility] Referral Priority Routine Medications Medication SIG (Take, Route, Frequency, Duration) Notes Start Date End Date Status NexIUM ActivelisinoprilActivemetFORMINActiveIbuprofenActiveLac-Hydrin 12%1 tootie applied topically 2 times a day for 5 day(s)09/08/2020Not-TakingMetFORMIN Hydrochloride 500 mgORALActiveNexIUM 20 mg1 daily ORALActivegabapentin 300 mg1 cap(s) orally 1 pill once a day for 3 days, 1 pill twice a day for 3 days, 1 pill three times a day there after for 30 day(s)07/13/2024Not-Takinglisinopril 2.5 mg1 daily ORAL Active Social History Tobacco Use: Social History Observation Description Date Details (start date - stop date) Never Smoker NA - NA AUDIT-C (Standard) Question Answer Notes Did you have a drink containing alcohol in the p ast year? No Xlbwbd5SjapgxzszgdqghKorgcyzaBethvre Control (Standard) Question Answer Notes Tobacco use: Nonsmoker Problems Problem Type SNOMED Code ICD Code Onset Dates Problem Status W/U Status Risk Notes Problem [id number] Aftercare following joint re placement surgery (Z47.1) JzdpygalybagmbtFkzmmli016827856159299Yyzny hip pain (M25.551)Activeconfirmed Fnqmmss971080086Zhcxag radiculopathy (M54.16)TvdprgptwkqyqqaZoxtnue3245713153 Pain in right knee (M25.561)RsrfqbjazpqxckbWjhlgvn21765398Sbed hip pain (M25.552)NgpdfyjrnerphmpAwpobuv459558845139682Tbdgbnq osteoarthritis of left hip (M16.12)WzuyzhubcwwuqsxObilizn4889960Rjdtjfryvpah bursitis of right hip (M70.61) CiopyjmnbsxyzloJygnujo753236999Capss equina syndrome (G83.4)Activeconfirmed Pxhiper24931283Lhqaw chronic pain (G89.29)FjkpjtsorwkozivBzmmcrj124331177Kxadck stenosis, lumbosacral region (M48.07)ActiveconfirmedProblemDegeneration of lumbosacral intervertebral disc (96619010)Other intervertebral disc degeneration, lumbosacral region (M51.37)YbwzqshiegjzdayPivlqdc64090011692207995 Contusion of left knee, initial encounter (S80.02XA)ActiveconfirmedProblem 218734464Paaebgxt of right artificial hip joint (Z96.641)ActiveconfirmedProblem 896290706Obgffyzw of left artificial hip joint (Z96.642)ActiveconfirmedProblem 620730527060Adokopnx of right artificial knee joint (Z96.651)Activeconfirmed Rsgbrvq202747689789Dccdfhyy of left artificial knee joint (Z96.652)Active confirmedProblemLocalized, primary osteoarthritis of the pelvic region and thigh (929502363)Primary osteoarthritis of right hip (M16.11)ActiveconfirmedProblem 8775440594Uujxm pain of left knee (M25.562)PmlkvmszjousmqjGbauhwc075265853990020 Effusion of right knee (M25.461)WijttdorvsmtfqfYjemfmf099651682248121 Spondylolisthesis of lumbar region (M43.16)ActiveconfirmedProblemAcquired spondylolisthesis (099544602)Spondylolisthesis of lumbosacral region (M43.17) ActiveconfirmedProblemLumbosacral spondylosis with radiculopathy (652397057) Lumbosacral spondylosis with radiculopathy (M47.27)ActiveconfirmedProblemSpinal stenosis of lumbar region (41655267)Lumbosacral spinal stenosis (M48.07)Active hfoovtolhVohfcok304559158860912Dwcspzpsqapbmnobr at L4-L5 level (M43.16)Active qwazrlhaaLciiisy512131427Xbft 2 diabetes mellitus without complication, without long-term current use of insulin (E11.9)KvqujuqtevgfjnmOgknjrm309499884Fppng low back pain (M54.59)JqtujdqlsoxgiatGlktsys13843734Dndgjwfzr hernia (K46.9)Active confirmed Vital Signs Height 64 in 05/17/2025 Cgyzcs037 lbs05/17/2025BMI33.1208 Encounters Encounter Location Date Provider Diagnosis [facility] [place] [address] 05/17/2025 Juan Carmela Aftercare following joint replacement surgery Z47.1 ; Effusion of right knee M25.461 and Presence of right artificial knee joint Z96.[address] [place] [address] 06/28/2025 Juan Cramela Contusion of left knee, initial encounter S80.02XA ; Aftercare following joint replacement surgery Z47.1 and Presence of left artificial knee joint Z96.652 [facility] [place] [address] 08/24/2024 Juan Carmela Pain in right hip M25.551 ; Primary osteoarthritis of right hip M16.11 and Preoperative testing Z01.[address] [facility] [place] [address] 10/14/2024 Juan Carmela Pain in right hip M25.551 ; Primary osteoarthritis of right hip M16.11 and Preoperative testing Z01.818 [facility] [address] [place] [address] 12/01/2024 Juan Carmela Pain in right hip M25.551 ; Primary osteoarthritis of right hip M16.11 and Preoperative testing Z01.818 [facility] [address] [place] [address] 12/23/2024 Juan Carmela Pain in right hip M25.551 ; Primary osteoarthritis of right hip M16.11 and Preoperative testing Z01.818 [facility] [address] [place] [address] 12/28/2024 Juan Carmela Primary osteoarthrit is of right hip M16.11 ; Contusion of left knee, initial encounter S80.02XA ; Aftercare following joint replacement surgery Z47.1 ; Presence of left artificial knee joint Z96.652 and Presence of left artificial hip joint Z96.642 [facility] [address] [place], [place] [address] 12/29/2024 Juan Carmela Primary osteoarthrit is of right hip M16.11 [facility] [address] [place] [address] 01/11/2025 Juan Carmela Aftercare following joint replacement surgery Z47.1 and Presence of right artificial hip joint Z96.641 [facility] [address] [place] [address] 02/08/2025 Juan Carmela Aftercare following joint replacement surgery Z47.1 and Presence of right artificial hip joint Z96.641 [facility] [address] [place] [address] 03/31/2025 Juan Carmela Aftercare following joint replacement surgery Z47.1 ; Presence of right artificial hip joint Z96.641 and Left hip pain M25.552 [facility] [address] [place] [address] 09/17/2024 Juan Carmela [facility] [address] [place] [address]/20/2025Philip HavensOIO-D[facility] [address]th[address] [place] [address]/09/2025 Juan HavensPreoperative testing Z01.818[facility] [address]sa[address] [place] [address]/Philip HavensPreoperative testing Z01.818[facility] Nvrrew[address] [place] [address]/03/2025Philip HavensPreoperative testing Z01.818 Assessments Encounter Date Diagnosis (ICD Code) Assessment Notes Treatment Notes Treatment Clinical Notes Section Notes 08/24/2024 Pain in right hip (ICD-10 - M25. 551) degenerative changes, right hip08/24/2024rimary osteoarthritis of right hip (ICD-10 - M16.11)degenerative changes, right hip10/14/2024Pain in right hip (ICD-10 - M25.551)degenerative changes, right hip11/17/2024Preoperative testing (ICD-10 - Z01.818)11/26/2024Preoperative testing (ICD-10 - Z01.818)12/01/2024 Pain in right hip (ICD-10 - M25.551)degenerative changes, right hip12/09/2024 Preoperative testing (ICD-10 - Z01.818)12/23/2024Pain in right hip (ICD-10 - M25.551)degenerative changes, right hip12/28/2024ontusion of left knee, initial encounter (ICD-10 - S80.02XA) 1 degenerative arthritis right hip 2 contusion left total knee 3 contusion left total hip 12/28/2024Primary osteoarthritis of right hip (ICD-10 - M16.11) 1 degenerative arthritis right hip 2 contusion left total knee 3 contusion left total hip 12/29/2024Primary osteoarthritis of right hip (ICD-10 - M16.11)01/11/2025 Aftercare following joint replacement surgery (ICD-10 - Z47.1)Status post right total hip jafnajjdarc25/08/2025Presence of right artificial hip joint (ICD-10 - Z96.641)Status post right total hip uinlruzmctj42/06/2025ftercare following joint replacement surgery (ICD-10 - Z47.1) 1 bilateral total hip replacements 2 left trochanteric bursitis 03/31/2025ftercare following joint replacement surgery (ICD-10 - Z47.1) Status post bilateral total hips Left hip pain 03/31/2025Presence of right artificial hip joint (ICD-10 - Z96.641) Status post bilateral total hips Left hip pain 05/17/2025ercare following joint replacement surgery (ICD-10 - Z47.1) 1 status post right total knee replacement 2 isolated swelling anterolateral aspect right knee 05/17/2025Effusion of right knee (ICD-10 - M25.461) 1 status post right total knee replacement 2 isolated swelling anterolateral aspect right knee 06/28/2025ercare following joint replacement surgery (ICD-10 - Z47.1) 1 contusion left total knee 2 sprain strain injury left knee 3 left gluteal muscle strain 06/28/2025ontusion of left knee, initial encounter (ICD-10 - S80.02XA) 1 contusion left total knee 2 sprain strain injury left knee 3 left gluteal muscle strain 06/28/2025Presence of left artificial knee joint (ICD-10 - Z96.652) 1 contusion left total knee 2 sprain strain injury left knee 3 left gluteal muscle strain 05/17/2025Presence of right artificial knee joint (ICD-10 - Z96.651) 1 status post right total knee replacement 2 isolated swelling anterolateral aspect right knee 03/31/2025Left hip pain (ICD-10 - M25.552) Status post bilateral total hips Left hip pain 02/08/2025Presence of right artificial hip joint (ICD-10 - Z96.641) 1 bilateral total hip replacements 2 left trochanteric bursitis 12/28/2024ftercare following joint replacement surgery (ICD-10 - Z47.1) 1 degenerative arthritis right hip 2 contusion left total knee 3 contusion left total hip 12/23/2024Primary osteoarthritis of right hip (ICD-10 - M16.11)degenerative changes, right hip12/01/2024Primary osteoarthritis of right hip (ICD-10 - M16.11)degenerative changes, right hip10/14/2024Primary osteoarthritis of right hip (ICD-10 - M16.11)degenerative changes, right hip10/14/2024Preoperative testing (ICD-10 - Z01.818)degenerative changes, right hip08/24/2024reoperative testing (ICD-10 - Z01.818)degenerative changes, right hip12/01/2024Preoperative testing (ICD-10 - Z01.818)degenerative changes, right hip12/23/2024Preoperative testing (ICD-10 - Z01.818)degenerative changes, right hip12/28/2024Presence of left artificial knee joint (ICD-10 - Z96.652) 1 degenerative arthritis right hip 2 contusion left total knee 3 contusion left total hip 12/28/2024Presence of left artificial hip joint (ICD-10 - Z96.642) 1 degenerative arthritis right hip 2 contusion left total knee 3 contusion left total hip 05/17/2025OtherPatient does not have any signs of infection. Her knee was injected with dexamethasone with Marcaine lidocaine. She tolerated this well. No significant effusion was noted. No purulent material was noted. 1 status post right total knee replacement 2 isolated swelling anterolateral aspect right knee 06/28/2025OtherFindings were discussed with her . As she has a diabetic and very sensitive to cortisone injections. Plan is to treat this conservatively and we will see her back in the office as needed. 1 contusion left total knee 2 sprain strain injury left knee 3 left gluteal muscle strain 08/24/2024Otherdiscussed with her . He'll enjoy her problems are coming from the right hip joint. I recommended a right total hip replacement. Pre- operatively post operative care, along with possible complications were discussed. All questions were answered. Arrangements will be made for surgery horn and admit basis.degenerative changes, right hip10/14/2024Otherdiscussed with her . He'll enjoy her problems are coming from the right hip joint. I recommended a right total hip replacement. Pre-operatively post operative care, along with possible complications were discussed. All questions were answered. Arrangements will be made for surgery horn and admit basis. degenerative changes, right hip12/01/2024Otherdiscussed with her . He'll enjoy her problems are coming from the right hip joint. I recommended a right total hip replacement. Pre-operatively post operative care, along with possible complications were discussed. All questions were answered. Arrangements will be made for surgery horn and admit basis.degenerative changes, right hip12/23/2024 Otherdiscussed with her . He'll enjoy her problems are coming from the right hip joint. I recommended a right total hip replacement. Pre-operatively post operative care, along with possible complications were discussed. All questions were answered. Arrangements will be made for surgery horn and admit basis.degenerative changes, right hip12/28/2024OtherFindings were discussed with her and her . She was given her postop prescription for Percocet. Will see her in the morning for a right total hip replacement. 1 degenerative arthritis right hip 2 contusion left total knee 3 contusion left total hip 01/11/2025OtherPatient is going to start slowly advance her activities. Will see her back in the office in 1 monthwith repeat x-ray of the right hip.Status post right total hip wohtzdaewln33/06/2025OtherFindings were discussed with the patient and her . Will treat this conservatively if this does not settle down over the next couple months will consider a cortisone injection into the left trochanteric bursa. 1 bilateral total hip replacements 2 left trochanteric bursitis 03/31/2025OtherPatient feels like there is a new problem in the left hip. Will obtain an MRI with [place] for furtherevaluation and we will see her back in follow-up after this is completed. She was given scription for tramadol. Status post bilateral total hips Left hip pain Plan Of Treatment Pending Test Test Name Order Date CBC - 08312 07/13/2024 Chest 2 views - 33437 07/13/2024 Lumbar spine 2v ap and lat - 03738 06/15 Basic Metabolic Panel (BMP) - 50744 05/2024 MRI : Hip Left without - 25661 5 EKG 07/13/2024 HGB A1C 07/13/2024 PT/PTT 07/13/2024 MRSA (Bilateral Nares) PCR 07/13/2024 PE HIP RIGHT W/PELVIS 2-3V- 54035 03/31 CAB- Referral: Pain Management 4 [facility] Knee right 2v-03550 05/17/2025 Future Test Test Name Order Date MRI : Lumbosacral Spine W/O Contrast - 7 2148 06/15/2024 DEXA SCAN: [id number] 06/15/2024 CT Lumbar Spine W/O Contrast - 69555 06/2024 Insurance Providers Payer Name Payer Address Payer Phone Subscriber Number Group Number Insured Name Patient Relationship to Insured Coverage Start Date Coverage End Date Medicare [employer] [address] [place] [phone] [id number] [place], [place] Self - patient is the insured 5 ClaimsPO [address] [address] [place] [id number], [facility] - patient is the [id number] [address]Med[address] [address] [place] [id number], [facility] - patient is the insured Medications Administered Medication Instructions Date of Administration Dosage Notes BUPIVACAINE 51.5 dNapkokylmnddhx95/12/20252 yZczrsytrfb19/12/20251.5 mL Medical (General) History Medical History History ICD Code Diabetes: Yes, Blood Clots: Yes,Drug Allergies: Yes,High Blood Pressure: Yes,Surgical History Surgery Date(Month/Year) Left total knee replacement 12/2018 Left total hip replacement 07/2019 RIGHT TOTAL KNEE REPLACEMENT Right total hip spggryefrsvq86/2025
--- OUTSIDE RECORDS SUMMARY | 2025-08-05 12:15 | XMS_ITS | Encounter Summary ---
Author Organization [facility] Address [address] [place] [address] Care Team Providers Care Machine Joint Cutter Name Role Phone Gloria Omalley DO Primary Care Provider [phone] Encounter Details DateTypeDepartmentCare Team (Latest Contact Info)Azsabyezphv22/27/2024linisync Result Encounter [facility] Unsolicited John Park, JUSTIN [address] [place] [address] Social History Tobacco UseTypesPacks/DayYears UsedDateSmoking Tobacco: NeverSmokeless Tobacco: NeverAlcohol UseStandard Drinks/WeekCommentsNever0 (1 standard drink = 0.6 oz pure alcohol)caffeine intake: occasionalAUDIT-CAnswerDate RecordedQ1: How often do you have a drink containing alcohol?Never04/17/2023Q2: How many drinks containing alcohol do you have on a typical day when you are drinking?Patient does not drink04/17/2023Q3: How often do you have six or more drinks on one occasion?Never04/17/2023CommentsUnknownSex and Gender InformationValue Date RecordedSex Assigned at BirthNot on fileLegal GjlJtsmjq24/15/2023 6:36 PM EDTGender IdentityNot on fileSexual OrientationNot on filedocumented as of this encounter Plan of Treatment Not on file documented as of this encounter Procedures Procedure NamePriorityDate/TimeAssociated DiagnosisCommentsECG 12-LEAD08/01/2024 5:02 PM EDT documented in this encounter Results * ECG 12-LEAD (08/01/2024 5:02 PM EDT)Anatomical RegionLateralityModalityOther Specimen (Source)Anatomical Location / LateralityCollection Method / Volume Collection TimeReceived Time08/01/2024 5:02 PM EDT Narrative 08/02/2024 6:46 AM EDT [facility] ?[address] ? [place] [address] ? Electrocardiograph Report ? Signed ? Patient: JOSE,MARI A ?MR#: [id number] ?? : 1950 ?Acct:[id number] ?? Age/Sex: 74 / F ?ADM Date: 08/01/24 ?? Loc: MS ??230-1 ? Attending Dr: Koki Sherwood D.O. ? Ordering Physician: John Park ?? Date of Service: 08/01/24 ?? Procedure(s): ECG 12 lead ?? Accession Number(s): [id number] ? cc: ?[facility] ? Test Date: ?2024-08-01 ?? Pat Name: ? MARI JOSE ? Department: ? Room: ? - ?? Gender: ? Female ? Dewaterer Operator: ? : ?1950 ? Requested By: ?? Order Number: [id number] ?Reading MD: ?? SRINIVAS ??BALL ? Measurements ?? Intervals ?[place] ? Rate: ? 79 ? P: ?90 ?? PA: ? 122 ?QRS: ?9 ?? QRSD: ? 94 ? T: ?34 ?? QT: ? 384 ? QTc: ?419 ? Interpretive Statements ?? 1100 Sinus rhythm ?? Baseline artifact ?? 9110 ??normal ECG ? Compared to ECG 04/09/2024 17:26:38 ?? No significant changes ?? Electronically Signed On 08-02-2024 6:45:42 EDT by SRINIVAS ??BALL ? Dictated By: ?Srinivas Garibay D.O. ? Signed By: ?08/02/24 0646 ? DD/ 1702 ? TD/TT: ? Coal Wheeler: Procedure Note Radiology, Radiologist, MD - 08/02/2024 [place] [address] Electrocardiograph Report Signed Patient: GARRISON, [place] [facility]#: [id number] : 1950Acct:[id number] Age/Sex: 74 / FADM Date: 08/01/24 Loc: MS 230-[address]: Koki Sherwood D.O. Ordering Physician: John Park Date of Service: 08/01/24 Procedure(s): ECG 12 lead Accession Number(s): [id number] cc: [facility] Test Date: 2024-08-01 Pat Name: [facility] Department: Room: - Gender: Female Dewaterer Operator: : 1950 Requested By: Order Number: [id number] Reading MD: SRINIVAS GARIBAY Measurements Intervals [place] Rate: 79 P: 90 PA: 122 QRS: 9 QRSD: 94 T: 34 QT: 384 QTc: 419 Interpretive Statements 1100 Sinus rhythm Baseline artifact 9110 normal ECG Compared to ECG 04/09/2024 17:26:38 No significant changes Electronically Signed On 08-02-2024 6:45:42 EDT by SRINIVAS GARIBAY Dictated By: Srinivas Garibay D.O. Signed By:08/02/2446 DD/ 01 TD/TT: Coal Wheeler: Authorizing ProviderResult TypeResult StatusMatthew J [facility] Final Result documented in this encounter Visit Diagnoses Not on filedocumented in this encounter Care Teams Team MemberRelationshipSpecialtyStart DateEnd Date Gloria Omalley DO [address] [place] [address] PCP - GeneralFamily Medicine04/29/23documented as of this encounter
--- OUTSIDE RECORDS SUMMARY | 2025-08-05 12:15 | XMS_ITS | Clinical Summary ---
Author Organization [facility] Address [address] [place] [address] Care Team Providers Care Certification Engineer Name Role Phone Gloria Omalley DO Primary Care Provider [phone] Allergies Active AllergyReactionsCriticalityNoted NepvBkdgddbsNsisj35/13/2023 Other Reaction(s): Unknown Penicillin TKsdasdlc06/13/2023erflutren Lipid PbrkaptasnmfReo17/28/2021 Medications MedicationSigDispense QuantityRefillsLast FilledStart DateEnd DateStatus amitriptyline (Elavil) 25 MG tablet Take 25 mg by mouth at bedtime.05/01/2022ctive amLODIPine (Norvasc) 2.5 MG tablet Take 2.5 mg by mouth in the morning.02/06/2023ctive atorvastatin (Lipitor) 20 MG tablet Take 20 mg by mouth in the morning.Active carvedilol (Coreg) 25 MG tablet Take 25 mg by mouth in the morning and 25 mg in the evening. Take with meals. Active Trulicity 1.5 MG/0.5ML solution pen-injector Inject 1.5 mg under the skin 1 (one) time per week.02/02/2023ctive lisinopril 40 MG tablet Take 40 mg by mouth in the morning.Active loratadine (Claritin) 10 MG tablet Take 10 mg by mouth in the morning.03/27/2023ctive metFORMIN (Glucophage) 500 MG tablet Take 500 mg by mouth in the morning and 500 mg in the evening. Take with meals. Active Multiple Vitamin (Multi Vitamin) tablet 1 (one) time each day at the same time.Active nystatin (Mycostatin) 436185 UNIT/GM powder Apply topically 2 (two) times a day.02/06/2023ctive polyethylene glycol, PEG, 3350 (MiraLax) 17 GM/SCOOP powder Take 17 g by mouth 1 (one) time.Active tiZANidine (Zanaflex) 2 MG tablet Take 2 mg by mouth 1 (one) time.02/13/2023ctive omeprazole (PriLOSEC) [address] capsule Indications:LPRD (laryngopharyngeal reflux disease)Take 1 capsule (40 mg) by mouth in the morning. Take before meals. Do not crush or chew.. 90 capsule 05/26/2023ctive famotidine (Pepcid) 20 MG tablet Indications:LPRD (laryngopharyngeal reflux disease)Take 1 tablet (20 mg) by mouth at bedtime. 90 tablet 05/26/2023ctive cetirizine (ZyrTEC) 10 MG tablet Indications:Chronic sinusitis, unspecified locationTake 1 tablet (10 mg) by mouth Daily as needed for allergies 30 tablet 11010/21/2023ctive Active Problems ProblemNoted DateDiagnosed DateChronic verjjnksd94/16/2024Hearing loss04/27/2023 LPRD (laryngopharyngeal reflux disease)04/27/2023Nontoxic multinodular goiter 04/27/2023OSA (obstructive sleep apnea)04/27/2023Overactive eorqhiy1304/27/2023 Pqbghbtbx94/23/2023Sensorineural hearing loss (SNHL) of both ears04/27/2023 Spinal stenosis of lumbar region with neurogenic bbdjpetphfly91/23/2023 Spondylolisthesis, lumbar opouiv1404/27/2023Uvular htfisrgszkj77/23/2023Other chest pain03/22/2020Renal cyst11/16/2019 Overview (04/27/2023): Complex right renal cyst which has grown since 2015. Plan MRI to evaluate further. She additionally has an intra-abdominal cystic structure which will be evaluated at that time 03/20/21: Failed to get followup imaging. MRI ordered 05/18/21: MRI with Stable nonenhancing hemorrhagic/proteinaceous cyst at the lower pole right kidney, Bosniak 2, not necessarily requiring further dedicated follow-up Cystic lesions at the pancreatic tail measuringup to 1.1 cm, also unchanged. Recommend attention on one year follow-up MRCP. I gave her a referal to GI Lumbosacral spondylosis without xyonlpdtfe66/14/2019 Overview (04/27/2023): Added automatically from request for surgery [id number] Age-related osteoporosis without current pathological vcqkjgul55/14/2019Mixed stress and urge urinary gdkasjainwxu73/06/2018 Overview (04/27/2023): Mixed urinary incontinence; worseningTried oxybutynin 10 mg and subsequently Myrbetriq 50 mg in 2014 without success 08/11/18: Leakage multifactorial - weight, lower back, diabetes. PVR 100 cc Plan for repeat urine culture, repeat cysto.Is having back surgery which may help. Losing weight may also help. If she does not have a signficant cystocele may give dual therapy with anticholinergic and myrbetriq 12/01/18: Urine culture negative. Cysto with rectocele but no cystocele.. Plan anticholinergic and myrbetriq 11/16/19: Continued significant incontinnece. Minimal improvement with oxybutynin and myrbetriq. Urine sent for culture. We talked today about botox and interstim. 05/22/21: Continued significant incontinence. Again discussed botox and interstim but she is not interested. She asked about the need for cysto but I told her this was not recommended given that I did this in 2019 and she does not have gross hmeaturia 05/28/22: mixed incontiennce/ Again discussed interstim, botox and ptns. She does not want surigcal intervention. She requested medication. I gave her samples of myrbetriq nad rx for oxybutynin but am sure this will not work any better than it did before Recurrent ventral eqhghw5106/15/20185688Pkbnhbehtpwaim14/04/4073Gxnmpywfeuml03/04/2018 Type 2 diabetes vhxvqyxw86/04/5535Hqssozqkgbwnzkm54/04/2018Osteoarthritis of right knee12/21/2012 Resolved Problems ProblemNoted DateDiagnosed DateResolved DateDisc displacement, hroufl4604/19/2021 04/27/2023 Overview (04/27/2023): Added automatically from request for surgery [id number] Obesity with body mass index 30 or wcmpdnt65Shortness of xqisue34cquired absence of both cervix and dzdtfy1711/02/2019 04/27/2023cquired absence of other specified parts of digestive tract11/02/2019 04/27/2023S/P right unicompartmental knee sddeeytnsbb97 Immunizations ImmunizationAdministration DatesNext GscMHqP4906/14/2016Moderna SARS-CoV-2 Affjxtjoefo29/01/2021,01/04/2021neumococcal Conjugate PCV , 07/14/2016Pneumococcal Conjugate PCV Zoster, Sudbihkrvmw45/04/2022, 06/21/2021Zoster, live07/14/2015 Family History Medical HistoryRelationNameCommentsCancerMotherRelationNameStatusComments Fokrrmzz6JdjdbMihutjAbbsgZtuqchBeavtavaTfx4Povgk Social History Tobacco UseTypesPacks/DayYears UsedDateSmoking Tobacco: NeverSmokeless Tobacco: Never Tobacco Cessation:Counseling Given: Not Answered Alcohol UseStandard Drinks/WeekCommentsNever0 (1 standard drink = 0.6 oz pure alcohol)caffeine intake: occasionalAUDIT-CAnswerDate RecordedQ1: How often do you have a drink containing alcohol?Never04/17/2023Q2: How many drinks containing alcohol do you have on a typical day when you are drinking?Patient does not drink04/17/2023Q3: How often do you have six or more drinks on one occasion?Never04/17/2023CommentsUnknownSex and Gender InformationValue Date RecordedSex Assigned at BirthNot on fileLegal ReyWbokzv92/15/2023 6:36 PM EDTGender IdentityNot on fileSexual OrientationNot on file Last Filed Vital Signs Vital SignReadingTime TakenCommentsBlood Euvsjvku675/5811110/21/2023 1:40 PM EST Pulse--Temperature--Respiratory Rate--Oxygen Saturation--Inhaled Oxygen Concentration--Vgcqyu78.8 kg (198 lb)10/21/2023 1:40 PM KMKTnyhnd170.6 cm (5' 4 )10/21/2023 1:40 PM ESTBody Mass Index33.9910/21/2023 1:40 PM EST Plan of Treatment Not on file Insurance Care Teams Team MemberRelationshipSpecialtyStart DateEnd Date Gloria Omalley DO [address] [place], [place] [id number] PCP - GeneralFamily Medicine04/29/23
--- OUTSIDE RECORDS SUMMARY | 2025-08-05 12:15 | XMS_ITS | Clinical Summary ---
Author Organization [employer] tem Address [id number] [place] [address] Care Team Providers [employer] Name Role Phone Services, [facility] Primary Care Provider Allergies Active AllergyReactionsCriticalityNoted DateCommentsPerflutren Lipid HackgpatobwsSjj28/28/8404SvesoQvgdifbkOdzk88/10/2017PenicillinsHives,Nausea Kfkuer1703/15/2017 Medications MedicationSigDispense QuantityRefillsLast FilledStart DateEnd DateStatus lisinopril (PRINIVIL,ZESTRIL) 40 mg tablet Take 1 tablet (40 mg total) by mouth in the morning.08/15/2015ctive metFORMIN (GLUCOPHAGE) 500 mg tablet Indications:type 2 diabetes mellitusTake 1 tablet (500 mg total) by mouth in the morning and 1 tablet (500 mg total) before bedtime. Indications: type 2 diabetes mellitus.Active acetaminophen (TYLENOL ARTHRITIS) 650 mg 8 hr tablet as needed.Active CALCIUM ORAL Take by mouth in the morning.Active glyBURIDE (DIABETA) 5 mg tablet Take 1 tablet (5 mg total) by mouth as needed.1Active carvediloL (COREG) 25 mg tablet Take 1 tablet (25 mg total) by mouth in the morning and 1 tablet (25 mg total) before bedtime. 180 tablet 5Active sodium chloride (AYR) 0.65 % drops Administer 2 drops into each nostril as needed (nasal dryness). 30 mL 5Active atorvastatin (LIPITOR) 40 mg tablet Indications:Hyperlipidemia, unspecified hyperlipidemia typeTake 1 tablet (40 mg total) by mouth once daily at bedtime. 90 tablet 5Active spironolactone (ALDACTONE) 25 mg tablet Take 1 tablet (25 mg total) by mouth in the morning. 90 tablet 5Active miscellaneous medical supply [facility] 07/08/2025Discontinued(Therapy completed) pseudoephedrine-guaiFENesin (MUCINEX D) 60-600 mg per 12 hr tablet Take 1 tablet by mouth every 12 (twelve) hours. 15 tablet Discontinued(Therapy completed) dulaglutide (TRULICITY) 0.75 mg/0.5 mL pen injector Inject under the skin every 7 days.07/08/2025Discontinued(Therapy completed) nystatin (MYCOSTATIN) cream Apply 1 Application topically in the morning and 1 Application before bedtime. 30 g /12/2024Discontinued(Therapy completed) clotrimazole (LOTRIMIN) 1 % cream Apply to affected area 2 times daily 15 g Discontinued(Therapy completed) atorvastatin (LIPITOR) 20 mg tablet Indications:Hyperlipidemia, unspecified hyperlipidemia typeTake 1.5 tablets (30 mg total) by mouth in the morning. 45 tablet 60Discontinued(Reorder) fluticasone propionate (FLONASE) 50 mcg/actuation nasal spray Administer 1 spray into each nostril in the morning. 16 g Discontinued(Therapy completed) Active Problems ProblemNoted DateDiagnosed DatePre-operative cardiovascular examination 4Chest pain, unspecified type09/08/2023Recurrent UTI07/01/2023 Overview (08/05/2023): 07/01/23: recurrent utis. Had recent u/s that was negative. Plan cysto (last done 2018). 08/05/23: Cysto normal. Topical estrogen cream given Disc displacement, wyufqr7804/19/2021 Overview (04/19/2021): Added automatically from request for surgery [id number] Shortness of eemktt06/17/5071Ofbrjifsijeiayl00/17/2020Renal cyst11/16/2019 Overview (05/22/2021): Complex right renal cyst which has grown since 2014. Plan MRI to evaluate further. She additionallyhas an intra-abdominal cystic structure which will be evaluated at that time 03/20/21: Failed to get followup imaging. MRI ordered 05/18/21: MRI with Stable nonenhancing hemorrhagic/proteinaceous cyst at the lower pole right kidney, Bosniak 2, not necessarily requiring further dedicated follow-up Cystic lesions at the pancreatic tail measuring up to 1.1 cm, also unchanged. Recommend attention on one year follow-up MRCP. I gave her a referal to GI ?? Lumbosacral spondylosis without rulheithan47/14/2019 Overview (08/19/2019): Added automatically from request for surgery [id number] Mixed stress and urge urinary wltlqrctnbob50/06/2018 Overview (08/10/2024): Mixed urinary incontinence; worsening Tried oxybutynin 10 mg and subsequently Myrbetriq 50 mg in 2014 without success 08/11/18: Leakage multifactorial - weight, lower back, diabetes. PVR 100 cc Plan for repeat urine culture, repeat cysto. Is having back surgery which may help. Losing weight may also help. If she does not have a signficant cystocele may give dual therapy with anticholinergicand myrbetriq 12/01/18: Urine culture negative. Cysto with [...] this was not recommended given that I didthis in 2019 and she does not have gross hmeaturia 05/28/22: mixed incontiennce/ Again discussed interstim, botox and ptns. She does not want surigcal intervention. She requested medication. I gave her samples of myrbetriq nad rx for oxybutynin but amsure this will not work any better than it did before 08/10/24: ongoing issues almost surely related to her back. She is seeing pain management and is going to see neurosurgery. Recurrent ventral yoxphj2506/15/2018Diabetes ebotduve59/04/2018Hyperlipidemia 06/09/2018Essential rejyvwticvvz51/04/2018Osteoarthritis of right knee12/21/2012 S/P right unicompartmental knee gjnkajrdfvy33/18/2013 Resolved Problems ProblemNoted DateDiagnosed DateResolved DateObesity (BMI 30-39.9)08/03/2021 08/26/2024Obesity (BMI 35.0-39.9 without comorbidity)/Other chest painSevere obesity (BMI 35.0-39.9) with comorbidity Obesity (BMI 35.0-39.9 without comorbidity)06/15/2018 12/29/2018Pre-op dcknsdr21Obesity, Class III, BMI 40-49.9 (morbid obesity) Encounters DateTypeDepartmentCare FejjXhsfzutxwsl29/30/2025 10:42 AM EDT - 08/04/2025 11:59 PM EDTHospital Encounter [facility] [address] [place] [phone] Ileana Kennedy MD Arrived Discharge Disposition: Home08/04/2025 10:36 AM EDTHospital Encounter [facility] - Stress Imaging [address] [place] [phone] Ileana Kennedy MD Iurvluh2808/04/2025 10:31 AM EDT - 08/04/2025 10:35 AM EDTHospital Encounter [facility] [address] [place] [phone] Ileana Kennedy MD Chest pain, unspecified type; Shortness of breath Discharge Disposition: Home08/04/2025 8:56 AM EDTHospital Encounter [facility] - Stress Imaging [address] [place] [address] Ileana Kennedy MD Aeeqdpf2808/04/2025 8:56 AM EDTHospital Encounter [facility] - Stress Imaging [address] [place] [address] Ileana Kennedy MD Chest pain, unspecified type; Shortness of tlpgek0008/04/20258523Rypzgb38/07/2025 7:53 AM EDT - 07/12/2025 11:59 PM EDTHospital Encounter [facility] - Mammography/DEXA Imaging [address] [place] [address] Pain of both breasts Discharge Disposition: Home07/12/20256704Igwzvk24/04/2025Results Follow-Up [facility] [address] [place] [address] Dakota Douglas RN Basic Metabolic Panel, BNP, CBC, Additional followed-up results: 1:00 PM EDTOffice Visit [facility] [address] [place] [address] Margaret Weldon MD Debenedetti, Laura L, MD Preop cardiovascular exam (Primary Dx); Pre-operative cardiovascular examination; Mixed hyperlipidemia; Essential hypertension; Chest pain, unspecified type; Hyperlipidemia, unspecified hyperlipidemia type; Shortness of rujtcw2107/08/20259322Ibxmdk77/02/2025Telephone [facility] [address] [place] [address] Pari Mancini, ALENA 06/20/2025 2:19 PM EDT - 06/20/2025 2:43 PM EDTEmergency [facility] [address] [place] [phone] Acute pain of left knee (Primary Dx) Discharge Disposition: Home06/20/20259212Dbzulq85/07/2025Telephone [facility] [address] [place] [phone] Caitlin Strong CMA from Last 3 Months Family History Medical HistoryRelationNameCommentsDiabetesMaternal GrandmotherBreast cancer Motherunk ageLung diseaseMotherBreast cancerSistersandyunk ageAnesthesia problemsNeg HxBil Breast CancerNeg HxBleeding DisorderNeg HxClotting disorderNeg HxColon cancerNeg HxHeart attackNeg HxOvarian cancerNeg HxStrokeNeg HxRelation NameStatusCommentsFatherDeceasedHalf SisterAliveMaternal GrandfatherDeceased Maternal GrandmotherDeceasedMotherDeceasedPaternal GrandfatherDeceasedPaternal GrandmotherDeceasedSistersandyDeceased Social History Tobacco UseTypesPacks/DayYears UsedDateSmoking Tobacco: NeverSmokeless Tobacco: Never Tobacco Cessation:Counseling Given: Not Answered Alcohol UseStandard Drinks/WeekCommentsNot Currently0 (1 standard drink = 0.6 oz pure alcohol)PHQ-2AnswerDate RecordedTotal Hqgjp5591ChildcareAnswerDate IceeyuoyGzxyptdltSpjixii48/12/2019EmploymentAnswerDate RecordedEmploymentUnknown 03/17/2019Hunger ScreeningAnswerDate RecordedWithin the past 12 months we worried whether our food would run out before we got money to buy more.Never True07/08/2025Within the past 12 months the food we bought just didn't last and we didn't have money to get more.Never True07/08/2025Purpose - LifeAnswerDate RecordedPurpose and direction in lsnrAwhhhpo14/23/2021CommentsNoSex and Gender InformationValueDate RecordedSex Assigned at BirthNot on fileLegal Sex Amefog7405/11/2015 11:22 AM EDTGender IdentityNot on fileSexual OrientationNot on file Last Filed Vital Signs Vital SignReadingTime TakenCommentsBlood Lvjgbwux472/6010 12:16 PM EDT Zqhzo4777 12:16 PM TURBbazekqvwbg72.7 ??C (98 ??F)06/20/2025 12:21 PM EDTRespiratory Hatk6577 2:32 PM EDTOxygen Hcgwokbjzw66%07/08/2025 12:16 PM EDTInhaled Oxygen Concentration--Qlsjiu99.9 kg (196 lb)07/08/2025 12:16 PM UKZXjuica772.6 cm (5' 4 )07/08/2025 12:16 PM EDTBody Mass Index33.6407/08/2025 12:16 PM EDT Plan of Treatment DateTypeDepartmentCare Team (Latest Contact Info)Xvemxasrfwn55/13/2025 2:15 PM ESTOffice Visit [facility] [address] [place] [address] Eliel Childers MD [address] [place] [address] Health MaintenanceDue DateLast DoneCommentsDepression Svstwhdnr64/07/1962Fall Risk Vfmxpasmt41/07/2015RSV ( or age 60+ yrs) (1 - 1-dose 75+ series) 5COVID-19 Vaccine ( season)505/10/2020, 01/04/2021, 1DTaP,Tdap and Td Vaccines (2 - Tdap)/06/2016Tobacco Xzerdiymv33Zoster (Shingles) CsmxqrzMfzkotvtl34/14/2025, 09/27/2024, 11/09/2021, Additional history existsInfluenza VaccineCompleted 07/27/2025, 09/27/2024, 08/22/2023, Additional history exists Medical Devices ImplantedTypeAreaManufacturerDevice IdentifierShelf Expiration DateModel / Serial / LotMesh Srg Bard [id number] Hrn Sft Rpl [id number] - [id number] Implanted:Qty: 1 on 06/15/2018 by Jose Vasquez [facility]MeshN/A: AbdomenC R BARD INC A BD CO [id number] / / [id number] Procedures Procedure NamePriorityDate/TimeAssociated DiagnosisCommentsNUC STRESS LEXISCAN Mpagzed1108/04/2025 11:58 AM EDT Chest pain, unspecified type Shortness of breath ECHO COMPLETE WO TJIBSZRJNwuajvl50/30/2025 11:20 AM EDT Chest pain, unspecified type Shortness of breath MAMM DIAGNOSTIC BILATERAL W PJLMgxcnbd70/07/2025 8:24 AM EDT Pain of both breasts CBC (NO DIFF)Uwobnly2907/08/2025 1:38 PM EDT Essential hypertension B-TYPE NATRIURETIC WDITMQXElhotoo67/03/2025 1:38 PM EDT Shortness of breath BASIC METABOLIC KBDCXIxjbxzz17/03/2025 1:38 PM EDT Essential hypertension Shortness of breath POCT UDXEnzwfly96/03/2025 Preop cardiovascular exam XR KNEE LT 3 VSGZZIP0106/20/2025 1:01 PM EDT from Last 3 Months Results * Nuc stress Lexiscan (08/04/2025 11:58 AM EDT)ComponentValueRef RangeTest MethodAnalysis TimePerformed AtPathologist SignatureTarget BV852uwvLSQIPCNSUD GB46amsNBPLDYMUTAXxnvzk peak VM524oisIMYAUZKCQXIngmswqh Systolic EM071zhOd SECTRAIECGDiastolic LU58mtMfPUMGLDNCHTRsmscb peak systolic UU351dlUpYGQILAHCIE Diastolic WC15bhBqGGJCOYZCCHJQ48phxLRSHAYTOKZEvvcja recovery systolic BP143 mmHgSECTRAIECGDiastolic YV19wuClCRMZNELKBUNniqgoq HR70%SECTRAIECGNuc Stress EF 72%SECTRAIECGEnd diastolic volume (mL)65mLSECTRAIECGEnd [...] in Patients With Stable Ischemic Heart Disease [facility] Volume 69, Issue 17February 2017 High risk (>3% annual or NM) 1. Severe resting LV dysfunction (LVEF <35%) [...] Intermediate risk (1% to 3% annual or NM) 1. Mild/moderate resting LV dysfunction (LVEF 35% to 49%) not readily explained by non coronary causes. 2. Resting perfusion abnormalities in 5%-9.9% of the myocardium in patients without a history or prior evidence of NM 3. Stress-induced perfusion abnormality encumbering 5%-9.9% of the myocardium or stress segmental scores indicating 1 vascular territory with abnormalities but without LV dilation 4. Small wall motion abnormality involving 1-2 segments and only 1 coronary bed. Low Risk (Less than 1% annual or NM) 1. Normal or small myocardial perfusion defect [...] fraction is 72%. Authorizing ProviderResult TypeResult StatusLaura L Debenedetti [facility] STRESS ORDERABLESFinal Result * Echo complete W/O contrast (08/04/2025 11:20 AM EDT)ComponentValueRef Range Test MethodAnalysis TimePerformed AtPathologist SignatureLVOT stroke volume 103.99mlXCELERALV Systolic Djxsqh56.26uCASAAAYJXD48%ESSFWVCCS3847 - 44 % XCELERALV Diastolic Dueamj45.77eOXWEPGNBNELCl1.79zfOOCPTZCDQTNw0.40cmXCELERA IVS0.900.6 - 1.1 cmXCELERAPW0.900.6 - 1.1 cmXCELERALVOT diameter2.00cmXCELERA TDI9.03cm/sXCELERAMV TDI E' (medial)6.64cm/sXCELERALA Volume Index29.0mL/m2 XCELERAE/A ratio0.74XCELERAE wave deceleration ajcz457.00msecXCELERAMV Peak E Vel64.00cm/sXCELERAMV Peak A Vel86.80cm/sXCELERALA size4.50cmXCELERAAortic root2.80cmXCELERALA xiklfy77.23cw2PDIXHCJZL diastolic dimension (basal)38.0mm XCELERARVID d3.5prXGDPKSKOIINS9.91cmXCELERAAV peak dqp846.00cm/sXCELERALVOT peak vel1.18m/sXCELERAAV VTI45.40cmXCELERALVOT peak VTI33.10cmXCELERAAV mean sgctmtea08.00mmHgXCELERAAV peak oizoxaob26.00mmHgXCELERAAV valve area2.29 XCELERAValve area - Index1.1XCELERAMV pressure 1/2 time59.00msXCELERAMV valve area p 1/2 method3.63uy5FOHXWJVTN Peak Vel2.6m/sXCELERATR peak xfohsqgg99.67 mmHgXCELERAPV mean gradient3.00mmHgXCELERAPV peak gradient6.05mmHgXCELERALV ESV A2C65.70mLXCELERALV ESV A4C47.40mLXCELERALV RWT 2D35.29XCELERAEcho EF Wdyhbufec38%XCELERAAV Velocity Ratio0.73XCELERALeft Ventricle Mass 163.082927307320836dZZADKULFiekepnbwqfdeiwu Septum Diastolic Thickness by 2D9 cmXCELERAEst. RA dvdnbqww0gsDsECMZWMRST area15.7ar7FJRBCNHQU Peak Systolic Jcxqzddm55hdQzWSKALSQRkgltvnpzl RegionLateralityModalityChestN/AUltrasound Specimen (Source)Anatomical Location / LateralityCollection Method [...] normal. Authorizing ProviderResult TypeResult StatusLaura Dontae Kennedy [facility] ECHO ORDERABLESFinal Result * Mammography diagnostic bilateral with CAD (07/12/2025 8:24 AM EDT)Anatomical RegionLateralityModalityBreastBilateralMammographySpecimen (Source)Anatomical Location / LateralityCollection Method / VolumeCollection TimeReceived Time 07/12/2025 8:25 AM EDT Narrative 07/12/2025 8:28 AM EDT MARI JAMISON 1950 [id number] EXAM: MAMM DIAGNOSTIC BILATERAL W CAD, 07/12/2025 8:14 AM CLINICAL INDICATIONS: Pain of both breasts, COMPARISON: Comparison made to previous examinations dating back to 10/14/2022 TECHNIQUE: Bilateral digital tomosynthesis MLO and CC views of the breasts were obtained, with creation of synthetic 2D views. Computer aided detection was utilized. FINDINGS: There are scattered areas of fibroglandular density. ?? There are no suspicious masses, calcifications, or areas of architectural distortion. IMPRESSION: No mammographic evidence of malignancy. BI-RADS: BI-RADS 1 - Negative RECOMMENDATION: ??Routine screening mammogram in 1 year. RISK ASSESSMENT: TC Lifetime risk: 2.4%. The patient's reported personal and family medical history was used calculate their Tyrer-Cuzick lifetime risk of malignancy. Scores less than 20% are not considered high risk per ACR guidelines and patient should continue with the above recommendation. Patient was given the results before leaving the department. Finalized by Bennie Esquivel MD on 07/12/2025 8:28 AM 1 b MAMM 1 YR [facility] Accredited Performing Facility: [facility] - Mammography[facility]DEXA Imaging [address] [facility] [address] Procedure Note Bennie Esquivel MD - 07/12/2025 MARI Dimas YAQUELIN 1950 [id number] EXAM: MAMM DIAGNOSTIC BILATERAL W CAD, 07/12/2025 8:14 AM CLINICAL INDICATIONS: Pain of both breasts, COMPARISON: Comparison made to previous examinations dating back to10/14/2022 TECHNIQUE: Bilateral digital tomosynthesis MLO and CC views of the breastswere obtained, with creation of synthetic 2D views. Computer aideddetection was utilized. FINDINGS: There are scattered areas of fibroglandular density. There are no suspicious masses, calcifications, or areas of architectural distortion. IMPRESSION: No mammographic evidence of malignancy. BI-RADS: BI-RADS 1 - Negative RECOMMENDATION: Routine screening mammogram in 1 year. RISK ASSESSMENT: TC Lifetime risk: 2.4%. The patient's reported personal and family medical history was usedcalculate their Tyrer-Cuzick lifetime risk of malignancy. Scores less than20% are not considered high risk per ACR guidelines and patient shouldcontinue with the above recommendation. Patient was given the results before leaving the department. Finalized by Bennie Esquivel MD on 07/12/2025 8:28 AM 1 b MAMM 1 YR [facility] Accredited Performing Facility: [facility] Mammography[facility]DEXA Imaging [address] [facility] [address] Authorizing ProviderResult TypeResult StatusKathleen E Pool MACHINE TURNER-CNMIMG MAMMOGRAPHY ORDERABLESFinal Result * CBC (07/08/2025 1:38 PM EDT)ComponentValueRef RangeTest MethodAnalysis Time Performed AtPathologist SignatureWBC5.24 - 11 x10E9/L1 1:58 PM EDT [facility]BC Count4.253.8 - 5.2 X10E12/L1 1:58 PM EDTPBELLEVUE HOSPITALHemoglobin11.811.7 - 15.5 g/dL 07/08/2025 1:58 PM EDTPBELLEVUE HOSPITALHematocrit36.035 - 47 %07/08/2025 1:58 PM EDTPBELLEVUE HOSPITALMCV8580 - 100 fL 07/08/2025 1:58 PM EDTPBELLEVUE HOSPITALMCH27.927 - 34 pg 07/08/2025 1:58 PM EDFISHER-TITUS MEDICAL CENTERMCHC32.932 - 36 g/dL 07/08/2025 1:58 PM EDFISHER-TITUS MEDICAL CENTERRDW14.411.5 - 15 % 07/08/2025 1:58 PM EDFISHER-TITUS MEDICAL CENTERPlatelet Uqkaq920480 - 450 X10E9/L1 1:58 PM EDTPBELLEVUE HOSPITALMPV8.47 - 12 fL07/08/2025 1:58 PM EDOUR LADY OF [facility] ANDERSONpecp[facility] (Source)Anatomical Location / LateralityCollection Method / VolumeCollection TimeReceived TimeBloodVenous blood / UnknownVenipuncture / Npvuuqm1507/08/2025 1:38 PM EDT1 1:39 PM EDT Narrative Authorizing ProviderResult TypeResult StatusLaura Dontae Kennedy MDLAB BLOOD ORDERABLESFinal ResultPerforming OrganizationAddressCity/State/ZIP CodePhone Number [facility] [address] [place] [address], * BNP (07/08/2025 1:38 PM EDT)ComponentValueRef RangeTest MethodAnalysis Time Performed AtPathologist JvtxxkxsjNRE95<=100 pg/mL07/08/2025 3:01 PM EDT [facility] (Source)Anatomical Location / LateralityCollection Method / VolumeCollection TimeReceived TimeBloodVenous blood / UnknownVenipuncture / Xyueqsy3707/08/2025 1:38 PM EDT1 1:39 PM EDT Narrative Authorizing ProviderResult TypeResult StatusLaura Dontae CARLIN BLOOD ORDERABLESFinal ResultPerforming OrganizationAddressCity/State/ZIP CodePhone Number [facility] [address] [place] [address], * (ABNORMAL) Basic Metabolic Panel (07/08/2025 1:38 PM EDT)ComponentValueRef RangeTest MethodAnalysis TimePerformed AtPathologist GgkldziuiTIOXID711458 - 146 mmol/L1 8:05 PM [facility] LABORATORYPOTASSIUM 4.33.5 - 5.0 mmol/L1 8:05 PM [facility] TZMFGTXV61306 - 109 mmol/L1 8:05 PM [facility] LABORATORYCARBON VRUBZHA9182 - 32 mmol/L1 8:05 PM [facility] LABORATORYANION GAP95 - 15 mmol/L1 8:05 PM [facility] LABORATORYBLOOD UREA NAZMUGDH695 - 27 mg/dL07/08/2025 8:05 PM [facility] LABORATORYCREATININE0.710.40 - 1.00 mg/dL 07/08/2025 8:05 PM [facility] LABORATORYComment:METHOD TRACEABLE TO IDMS UMYBQWCIZCQYRIS178(H)65 - 99 mg/dL07/08/2025 8:05 PM T [facility] LABORATORYCALCIUM9.58.5 - 10.5 mg/dL07/08/2025 8:05 PM [facility]ORYEGFR Non-Race Nqapadpbg63>=60 ml/min/1.73sq.m1 8:05 PM [facility] Comment: Reported eGFR is based on the CKD-EPI 2020 equation that does not use a race coefficient. Specimen (Source)Anatomical Location / LateralityCollection Method / Volume Collection TimeReceived TimeBloodVenous blood / UnknownVenipuncture / Unknown 07/08/2025 1:38 PM EDT1 1:39 PM EDT Narrative Authorizing ProviderResult TypeResult StatusIleana Kennedy MDLAB BLOOD ORDERABLESFinal ResultPerforming OrganizationAddressCity/State/ZIP CodePhone Number [facility] [address] [place] [address], * POCT EKG (07/08/2025)Specimen (Source)Anatomical Location / Laterality Collection Method / VolumeCollection TimeReceived Time07/08/2025 Narrative Authorizing ProviderResult TypeResult StatusIleana Kennedy MDECG ORDERABLES Final ResultPerforming OrganizationAddressCity/State/ZIP CodePhone Number MANUALLY TRANSCRIBED RESULTS * X-ray knee left 3 views (06/20/2025 1:01 PM EDT)Anatomical RegionLaterality ModalityLower Extremities, MSK, KneeLeftComputed RadiographySpecimen (Source) Anatomical Location / LateralityCollection Method / VolumeCollection Time Received Time06/20/2025 1:03 PM EDT Narrative 06/20/2025 1:05 PM EDT HISTORY: A 75-year-old female with a history of fall 4 weeks ago. Complaining of the pain and swelling in the left knee. TECHNIQUE: ??Left knee: 3 views COMPARISON: ??Comparison is made with the left knee radiographs of the 2024. FINDINGS: ??There is a total left knee replacement. Metallic prosthesis is in satisfactory position. No hardware complications are seen. There is no evidence of recent fracture or acute bony pathology. There is no evidence of joint effusion. There are arterial calcifications. IMPRESSION: * ??Status post total left knee replacement with postsurgical change. * ??No evidence of recent fracture, joint effusion or acute bony pathology. Finalized by Jair Sparks MD on 06/20/2025 1:05 PM Procedure Note Jair Sparks MD - 06/20/2025 HISTORY: A 75-year-old female with a history of fall 4 weeks ago.Complaining of the pain and swelling in the left knee. TECHNIQUE: Left knee: 3 views COMPARISON: Comparison is made with the left knee radiographs of [facility] 2024. FINDINGS: There is a total left knee replacement. Metallic prosthesis isin satisfactory position. No hardware complications are seen. There is no evidence of recent fracture or acute bony pathology. There isno evidence of joint effusion. There are arterial calcifications. IMPRESSION: * Status post total left knee replacement with postsurgical change. * No evidence of recent fracture, joint effusion or acute bony pathology. Finalized by Jair Sparks MD on 06/20/2025 1:05 PM Authorizing ProviderResult TypeResult StatusTerrence Anderson MDIMYaya DIAGNOSTIC IMAGING ORDERABLESFinal Result from Last 3 Months Insurance Advance Directives * Full Code (Latest Code Status on File) Date ActivatedDate InactivatedComments06/15/2018 3:10 PM06/24/2018 6:17 PM Care Teams Team MemberRelationshipSpecialtyStart DateEnd Date Services, [address] PCP - GeneralFamily Medicine02/24/25
--- OUTSIDE RECORDS SUMMARY | 2025-08-05 12:16 | XMS_ITS | Encounter Summary ---
Author Organization [facility] Sy tem Address [facility] [id number] [address] [place] [address] Care Team Providers Care Chemistry Technician Name Role Phone Services, [facility] Primary Care Provider Encounter Details DateTypeDepartmentCare Team (Latest Contact Info)Yehrgxazwuv64/04/2025Results Follow-Up [facility] [address] [place] [address] Dakota Douglas RN Basic Metabolic Panel, BNP, CBC, Additional followed-up results: 2 Social History Tobacco UseTypesPacks/DayYears UsedDateSmoking Tobacco: NeverSmokeless Tobacco: NeverAlcohol UseStandard Drinks/WeekCommentsNot Currently0 (1 standard drink = 0.6 oz pure alcohol)PHQ-2AnswerDate RecordedTotal Bgmta0131Childcare AnswerDate LyzwtrrrJindofhccBvhbftw20/12/2019EmploymentAnswerDate Recorded ImacqpwvdhKysopwx44/12/2019Hunger ScreeningAnswerDate RecordedWithin the past 12 months we worried whether our food would run out before we got money to buy more.Never True07/08/2025Within the past 12 months the food we bought just didn't last and we didn't have money to get more.Never True07/08/2025Purpose - LifeAnswerDate RecordedPurpose and direction in hynlTwasbxr14/23/2021 CommentsNoSex and Gender InformationValueDate RecordedSex Assigned at BirthNot on fileLegal JvrHbkrxe27/06/2015 11:22 AM EDTGender IdentityNot on fileSexual OrientationNot on filedocumented as of this encounter Plan of Treatment DateTypeDepartmentCare Team (Latest Contact Info)Abtjavpboat90/13/2025 2:15 PM ESTOffice Visit [facility] [address] [place] [address] Eliel Childers MD [address] [place] [address] documented as of this encounter Visit Diagnoses Not on filedocumented in this encounter Additional Health Concerns AssessmentNoted TimePHQ-9 Depression Total Score: 9:00 AM EDT documented as of this encounter Care Teams Team MemberRelationshipSpecialtyStart DateEnd Services, [facility] [address] [place], [place] PCP - GeneralFamily Medicine02/24/25documented as of this encounter
--- OUTSIDE RECORDS SUMMARY | 2025-08-05 12:16 | XMS_ITS | Continuity of Care Document ---
Author Organization [facility] Address [address] [place] [address] Problems Unknown Problems Results Test Value / Unit Interpretation Reference Ran ge SARS-CoV-2 (COVID-19), RT-PC R/TMA[[id number]] Collected: 11/13/2020 05:58 PM Specimen Received: 11/14/2020 05:32 PM Source: [facility] SARS-CoV-2 INTERPRETATION [[id number]] Negative See PpbwZEYR-IhO-3 RNA NOT DETECTEDNegative results do not preclude SARS-CoV-2 infection and should notbe used as the sole basis for patient management decisions. Negativeresults must be combined with clinical observations, patient history,and epidemiological information. Optimum specimen types and timingfor peak viral levels during infections caused by SARS-CoV-2 have notbeen determined. Collection of multiple specimens or types ofspecimens may be necessary to detect virus. Improper specimencollectionand handling, sequence variability under primers/probes,or organism present below the limit of detec tion may lead to falsenegative results. Positive and negative predictive values oftesting are highly dependent on prevalence. False negative testresults are more likely when prevalence is high.SOURCE [[id number]]NASOPHARYNGEALNote: Methodology is [employer] Real-Time RT-PCR. The expectedresult or reference range is NEGATIVE (Not Detected). For more information regarding COVID-19 testing to include clinicalinformation, methodology detail, intended use, FDA authorization andrecommended fact sheets for patients or healthcare providers, see [employer] Announcement: SARS-CoV-2 (COVID-19) by NAAT at URL below (note,fact sheets are provided by method given in report:https://www.Box/clinicians/client-communications/Alternatively, see downloadable PDF fact sheet at:https://www.Box/KZWGN-77-DW-PCR Allergies, adverse reactions, alerts No known allergies and adverse reactions Medications No administered medications reported Vital Signs No vital signs reported Social History No smoking Hx information available
--- OUTSIDE RECORDS SUMMARY | 2025-08-05 12:16 | XMS_ITS | Encounter Summary ---
Author Organization [facility] tem Address [facility] [id number] [address] [place] [address] Care Team Providers Care Meteorology Professor Name Role Phone Services, [facility] Primary Care Provider Encounter Details DateTypeDepartmentCare Team (Latest Contact Info)Xwrxlnludtg63/30/2025Travel Social History Tobacco UseTypesPacks/DayYears UsedDateSmoking Tobacco: NeverSmokeless Tobacco: NeverAlcohol UseStandard Drinks/WeekCommentsNot Currently0 (1 standard drink = 0.6 oz pure alcohol)PHQ-2AnswerDate RecordedTotal Skcmt4261Childcare AnswerDate HtywhpwoDnjvniunqHycgdfu09/12/2019EmploymentAnswerDate Recorded VhjaanzganEmshooo89/12/2019Hunger ScreeningAnswerDate RecordedWithin the past 12 months we worried whether our food would run out before we got money to buy more.Never True07/08/2025Within the past 12 months the food we bought just didn't last and we didn't have money to get more.Never True07/08/2025Purpose - LifeAnswerDate RecordedPurpose and direction in ccccHebskwm80/23/2021 CommentsNoSex and Gender InformationValueDate RecordedSex Assigned at BirthNot on fileLegal KnoHoxnly94/06/2015 11:22 AM EDTGender IdentityNot on fileSexual OrientationNot on filedocumented as of this encounter Plan of Treatment DateTypeDepartmentCare Team (Latest Contact Info)Driztuprbya77/13/2025 2:15 PM ESTOffice Visit [facility] [address] [place] [id number] Eliel Childers MD [address] [place] [address] documented as of this encounter Visit Diagnoses Not on filedocumented in this encounter Additional Health Concerns AssessmentNoted TimePHQ-9 Depression Total Score: 9:00 AM EDT documented as of this encounter Care Teams Team MemberRelationshipSpecialtyStart DateEnd Date Services, [facility] [address] [place], [place] PCP - GeneralFamily Medicine02/24/25documented as of this encounter
--- OUTSIDE RECORDS SUMMARY | 2025-08-05 12:17 | XMS_ITS | Patient Health Record ---
Author Organization [facility] [place] Address [address] [place] [address] Care Team Providers Care Seismic Interpreter Name Role Phone Kendall Navarro Primary Care Provider Unavailabl e Allergies Allergen (clinical drug ingredient) Drug/Non Drug Allergy documented on EMR Reaction Allergy Type Onset Date Status Penicillin (uncoded)dvvvpxjqdSywgagc40/10/2018ActiveHoneyhivesDrug AllergyActive Reason For Referral No Information Medications Medication SIG (Take, Route, Frequency, Duration) Notes Start Date End Date Status Pioglitazone HCl 30 MG 1 tablet Orally Once a da y UnknownmetFORMIN HCl ER 500 MG2 tablets Orally BIDUnknownNexIUM 40 MG1 capsule Orally Once a dayActiveLisinopril 40 MG1 tablet Orally Once a dayActiveMeclizine HCl 25 MG1 tablet as needed Orally Once a day; Duration: 30 day(s)Unknown Acetaminophen ER 650 MG2 tablets as needed Orally every 8 qzoRyjsnq94+ Safety Administrator Womens1 tablet orally DailyActiveOndansetron 4 MG1 tablet on the tongue and allow to dissolve Orally Once a day; Duration: 30 day(s)ActiveCipro 500 MG1 tablet Orally every 12 hrs; Duration: 10 day(s)Unknown Social History Tobacco Use: Social History Observation Description Date Details (start date - stop date) Never Smoker NA - NA Tobacco Use/Smoking Question Answer Notes Patient is a nonsmoker Problems Problem Type SNOMED Code ICD Code Onset Dates Problem Status W/U Status Risk Notes Problem Hypertension (80739146) Hypertension (I10 ) ActiveconfirmedProblemEssential hypertension (27083858)Essential hypertension (I10)ActiveconfirmedProblemThyroid nodule (070982994)Thyroid nodule (E04.1) ActiveconfirmedProblemArthritis of right hip (4988647161810065)Arthritis of right hip (M19.90)ActiveconfirmedProblemLumbar spondylosis (557464018)Lumbar spondylosis (M47.816)ActiveconfirmedProblemBody mass index 35.00 to 39.99 (931966917208848)Body mass index (BMI) of 37.0-37.9 in adult (Z68.37)Active confirmedProblemSacroiliac joint pain (782986747)Sacroiliac joint pain (M53.3) ActiveconfirmedProblemBody mass index 35.00 to 39.99 (566776294389628)Body mass index (BMI) of 38.0-38.9 in adult (Z68.38)ActiveconfirmedProblemSkin sensation disturbance (48728953)Bilateral leg paresthesia (R20.2)ActiveconfirmedProblem Body mass index 35.00 to 39.99 (701686767956682)Body mass index (BMI) of 36.0- 36.9 in adult (Z68.36)ActiveconfirmedProblemType II diabetes mellitus without complication (495334622)Type 2 diabetes mellitus treated without insulin (E11.9) ActiveconfirmedProblemType II diabetes mellitus without complication (123611730) Type 2 diabetes mellitus without complication, without long-term current use of insulin (E11.9)ActiveconfirmedProblemObesity (429361567)Obesity (BMI 35.0-39.9 without comorbidity) (E66.9)ActiveconfirmedProblemSpinal stenosis of lumbar region (33651375)Spinal stenosis of lumbar region (M48.061)Activeconfirmed Plan Of Treatment Pending Test Test Name Order Date APTT 06/10/2018 CBC AND AUTO DIFF * 06/10/2018 COMPREHENSIVE METABOLIC PANEL 06/10/2018 Insurance Providers Payer Name Payer Address Payer Phone Subscriber Number Group Number Insured Name Patient Relationship to Insured Coverage Start Date Coverage End Date [employer] ADV PLAN [address] [place] [id number] [place], [place] Self - patient is the insured 4 4 [place]IC[place] [address] [place] [address] [id number] Negra GarciaSelf - patient is the insured Medical (General) History Medical History History ICD Code Type 2 diabetes mellitus wit hout complication, without long-term current use of insulin E11.9 Essential hypertension I10 History of IBS Z87.19 Chronic GERD K21.9 Hyperlipidemia, unspecified hyperlipidem ia type E78.5 Depression, unspecified depression type F32.9 Deep phlebothrombosis in , unsp ecified trimester O22.30 Acute embolism and thrombosi s of unspecified deep veins of unspecified lower extremity I82.409 Myalgia M79.1 Schizophrenia, unspecified type F20.9 Surgical History Surgery Date(Month/Year) recurrent incisional hernia repair with posterior component separation repair 06/15/2018 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
--- OUTSIDE RECORDS SUMMARY | 2025-08-05 12:20 | XMS_ITS | CCD ---
Author Organization [facility] Care Team Providers Care Directional Bore Operator Name Role Phone PHYSICIAN, DEFAULT Unavailable Unavailable PHYSICIAN, DEFAULT Unavailable Unavailable DELFINO DICKERSONEDA O Unavailable Unavailable Alethea Antonio Primary Care Provider [phone] NON, STAFF, Primary Care Provider UnavailKrishan Stacy Attending Provider Unavailable Primary Care Provider Unavailbryson e Gloria Taylor DO Primary Care Provider Krishan Madrid Unavailable MISC, [...] DR PERES Admitting Unavailable PENDLETONSUSAN Consulting Unavailable TIMMISKAYLA H Attending Unavailable NARINDER PALOMO Attending Unavailable RUMSCHLAG, GLORIA K Referring Unavailable RUMSCHLAG, GLORIA K Primary Care Unavailable MICKEY RAY Attending Unavailable MARINO WILKERSON Referring Unavailable SERVICES, [facility] Primary Care Unava ilable RUMSCHLAG, GLORIA K Referring Unavailable RUMSCHLAG, GLORIA K Primary Care Unavailable DOMENICA AGUIRRE Attending Unavailable SERVICES, [facility] Primary Care Unava ilable Rumschlag DO Gloria Primary Care Provider Services, [facility] Primary Care Provider Services, [facility] Primary Care Provider Rumschlag DO, Gloria K Primary Care Provider Services, [facility] Primary Care Provider Services, [facility] Primary Care Provider Maria Guadalupe ARORA, Nolberto Eldridge Attending Unavailable Maria Guadalupe ARORA, Nolberto Eldridge Attending Unavailable Carmela ARORA, Juan Jimenes Attending Unavail able Carmela ARORA, Juan Jalil Attending Unavail able Carmela ARORA, Juan Jalil Attending Unavail able Carmela ARORA, Juan Jalil Admitting Unavail able Thomas Rosales DO Unavailable Carmela ARORA, Juan Jimenes Attending Unavail able Maria Guadalupe ARORA, Nolberto Eldridge Attending Unavailable CARMELA, JUAN E Admitting Unavailable CARMELA, JUAN E Attending Unavailable RUMSCHLAG, GLORIA Primary Care Unavailable RUMSCHLAG, GLORIA Primary Care Unavailable DON ALLAN Attending Unavailable NEVIN GARCIA Referring Unavailable RUMSCHLAG, GLORIA Primary Care Unavailable BRITTNEY FOY Referring Unavailable RUMSCHLAG, GLORIA Primary Care Unavailable NEVIN GARCIA Referring Unavailable RUMSCHLAG, GLORIA Primary Care Unavailable CARMELA, JUAN E Admitting Unavailable CARMELA, JUAN E Attending Unavailable Services, [facility] Primary Care Provider SERVICES, [facility] Primary Care Unava ilable JOSE MARIA MCFARLANE Attending Unavailable UDO-INYANG JR, INYANG Referring Unavailabl e SERVICES, [facility] Primary Care Unava ilable UDO-INYANG JR, INYANG Referring Unavailabl e SERVICES, [facility] Primary Care Unava ilable UDO-INYANG JR, INYANG Referring Unavailabl e SERVICES, [facility] Primary Care Unava ilable MICKEY RAY Attending Unavailable MICKEY RAY Referring Unavailable SERVICES, [facility] Primary Care Unava ilable CARMELA, JUAN E Referring Unavailable SERVICES, [facility] Primary Care Unava ilable CARMELA, JUAN E Referring Unavailable SERVICES, [facility] Primary Care Unava ilable CARMELA, JUAN E Referring Unavailable SERVICES, [facility] Primary Care Unava ilable BINDU KENNEDY Attending Unavailable SERVICES, [facility] Primary Care Unava ilable SERVICES, [facility] Primary Care Unava ilable SERVICES, [facility] Primary Care Unava ilable NEVIN GARCIA Referring Unavailable SERVICES, [facility] Primary Care Unava ilable NALDO, PEACE Referring Unavailable SERVICES, [facility] Care Unava ilable SERVICES, [facility] Care Unava ilable SAMANTHA CERDA Attending Unavailable JOHN, MOHAMMED Attending Unavailable SERVICES, [facility] Primary Care Unava ilable JOHN, MOHAMMED Referring Unavailable SERVICES, [facility] Care Unava ilable SERVICES, [facility] Unava ilable MELECIO PIÑA Attending Unavailable SERVICES, [facility] Unava ilable VEENA MCCOY Attending Unavailable JOHN, MOHAMMED Referring Unavailable SERVICES, [facility] Unava ilable SERVICES, [facility] Unava ilable DHARA SNELL Attending Unavailable SERVICES, [facility] Unava ilable SERVICES, [facility] Unava ilable SERVICES, [facility] Primary Care Unava ilable DHARA SNELL Attending Unavailable NALDO, PEACE Referring Unavailable SERVICES, [facility] Primary [facility] Unava ilable NALDO, PEACE Referring Unavailable SERVICES, [facility] Primary [facility] Unava ilable NALDO, PEACE Referring Unavailable SERVICES, [facility] Unava ilable JUAN CASEY Referring Unavailable SERVICES, [facility] Unava ilable SERVICES, [facility] Unava ilable BINDU KENNEDY Attending Unavailable SERVICES, [facility] Unava ilable TRENTENEDBINDU RODRIGUEZ Referring Unavailable SERVICES, [facility] Unava ilable LEXI LEDESMA Referring Unavailable SERVICES, [facility] Unava ilable Gloria Taylor DO Primary Care Provider Unavailable Unavailable Unavailable Allergies Allergy ClassificationReported Allergen(s)Allergy TypeDate of OnsetReaction(s) FacilityPenicillins (antibiotic) (1 source)PenicillinsDrug Fufffcn71-89-9970Ecpmp, Nausea And VomitingPark[facility] (5 sources)Honey; Translations: [HONEY]Drug allergy (disorder)01-96-0417Yda [facility] Repository (7 sources)Penicillins; Translations: [PENICILLINS]Drug allergy (disorder) 67-07-7708Mldzw, [facility]iting[facility] (20 sources)HoneyPropensity to adverse reactions to qasc33-78-5006AkfnszpqEmgsx Health- [place], [place] (1 source)PenicillinsPropensity to adverse reactions to nyrb59-41-0144Leszg, Nausea [place]omiting[place] (1 source)PenicillinDrug AllergyFranciscan Children'SnoMineral [facility] [employer] Other (20 sources)PERFLUTREN LIPID MICROSPHERES; Translations: [PERFLUTREN LIPID MICROSPHERES]Propensity to adverse reactions to drug (disorder)03-02-2021 [facility] Repository (20 sources)PenicillinsPropensity to adverse reactions to jenx19-55-7266Zmrae, Nausea And Vomiting, [facility]auseaBon [facility] (1 source)Milk Products; Translations: [Milk Products]Propensity to adverse reactions to food (disorder)[facility] Repository (3 sources)PenicillinsPropensity to adverse reactions to bmik43-99-9902Ajgbn, NauseaMercer County Community HospitalCHIC.TV [facility] (1 source)HoneyAllergy to jrlakfnfn82-99-7991[facility] (1 source)Penicillin GDrug Zjnwuoi46-16-4305PnqjzdyaRMHX Healthcare Medications Current Medications MedicationDrug Class(es)DatesSig (Normalized)Sig (Original)8 hr acetaminophen 650 mg extended release oral tablet (20 sources)acetaminophen (TYLENOL ARTHRITIS) 650 mg 8 hr tablet as needed. Activetake 2 tablets by mouth every six hours as needed for painacetaminophen (TYLENOL) 500 MG tablet Take 2 tablets by mouth every 6 hours as needed for Pain Activeacetaminophen (TYLENOL ARTHRITIS) 650 mg 8 hr tablet as needed. 0 Active acetaminophen 300 mg / codeine phosphate 30 mg oral tablet (4 sources)Opioid AgonistStart: 32-09-2867fdmj 1 tablet by mouth three times daily as needed for painacetaminophen-codeine (TYLENOL #3) 300-30 MG per tablet Take 1 tablet by mouth 3 times daily as needed for Pain. 07/26/2024 Active amitriptyline hydrochloride 25 mg oral tablet (3 sources)Tricyclic AntidepressantStart: 05-01-2022 End: 03-22-8180jwrg 1 tablet by mouth at bedtimeamitriptyline (Elavil) 25 MG tablet Take 25 mg by mouth at bedtime. 05/01/2022 ActiveamLODIPine 2.5 mg oral tablet (3 sources)Dihydropyridine Calcium Channel BlockerStart: 02-06-2023 End: 35-04-2267odlu 1 tablet by mouth in the morningamLODIPine (Norvasc) 2.5 MG tablet Take 2.5 mg by mouth in the morning. 02/06/2023 Activeaspirin 81 mg oral tablet (10 sources)Platelet Aggregation Inhibitor, Nonsteroidal Anti-inflammatory Drug take 1 tablet by mouth two times weeklyaspirin 81 MG tablet Take 1 tablet by mouth twice a week Active End: 91-93-1497jpxr 1 tablet by mouth in the morningaspirin 81 mg Take 1 tablet (81 mg total) by mouth in the morning. 12/02/2023 Discontinuedatorvastatin 40 mg oral tablet (20 sources)HMG-CoA Reductase InhibitorStart: 99-27-3560hatd 1 tablet by mouth once daily at bedtimeatorvastatin (LIPITOR) 40 mg tablet Indications: Hyperlipidemia, unspecified hyperlipidemia type Take 1 tablet (40 mg total) by mouth once daily at bedtime. 90 tablet 3 07/08/2025 ActiveStart: 11-22-2024 End: 12-81-4935lgql 1.5 tablets by mouth in the morningatorvastatin (LIPITOR) 20 mg tablet Indications: Hyperlipidemia, unspecified hyperlipidemia type Take 1.5 tablets (30 mg total) by mouth in the morning. 45 tablet 6 11/22/2024 07/08/2025 Discontinued(Reorder)Start: 04-18-2021 End: 90-68-3739tuvb 1 tablet by mouth in the morningatorvastatin (LIPITOR) 10 mg tablet Take 1 tablet (10 mg total) by mouth in the morning. 90 tablet 3 08/26/2024 Activetake 1 tablet by mouth in the morningatorvastatin (Lipitor) 20 MG tablet Take 20 mg by mouth in the morning. Activebenzonatate 100 mg oral capsule (15 sources)Non-narcotic AntitussiveStart: 09-20-2023 End: 45-07-5440etrbypkhdxd (TESSALON) 100 MG capsule Take 1 capsule by mouth in the morning and 1 capsule at noon and 1 capsule in the evening. 09/20/2023 ActiveCalcium (19 sources)Phosphate Binder, CalciumCALCIUM ORAL Take by mouth in the morning. ActiveCALCIUM ORAL Take by mouth daily. ActiveCALCIUM ORAL Take by mouth daily. 0 Activecalcium chloride 0.0014 meq/ml / potassium chloride 0.004 meq/ml / sodium chloride 0.103 meq/ml / sodium lactate 0.028 meq/ml injectable solution (1 source)Start: 77-79-4862mtgylnns ringers infusioncalcium citrate 1500 mg / cholecalciferol 250 unt oral tablet (7 sources)Vitamin Dcalcium citrate-vitamin D (CITRICAL + D) 315-250 MG-UNIT TABS Take by mouth Activecarvedilol 25 mg oral tablet (20 sources)alpha-Adrenergic Mook, beta-Adrenergic BlockerStart: 03-15-2021 End: 29-14-7229knen 1 tablet by mouth in the morning, then take 1 tablet by mouth at bedtimecarvediloL (COREG) 25 mg tablet Take 1 tablet (25 mg total) by mouth in the morning and 1 tablet (25 mg total) before bedtime. 180 tablet 3 10/26/2024 Activecetirizine hydrochloride 10 mg oral tablet (3 sources)Histamine-1 Receptor AntagonistStart: 10-21-2023 End: 10-36-8690kifq 1 tablet by mouth once daily as neededcetirizine (ZyrTEC) 10 MG tablet Indications: Chronic sinusitis, unspecified location Take 1 tablet(10 mg) by mouth Daily as needed for allergies 30 tablet 11 10/21/2023 Active ciprofloxacin 500 mg oral tablet (1 source)Quinolone AntimicrobialStart: 62-65-0599frud 1 tablet by mouth twice dailyciprofloxacin (CIPRO) 500 MG tablet TAKE 1 TABLET BY MOUTH TWICE DAILY FOR 7 DAYS 0 04/14/2022 Activecyclobenzaprine hydrochloride 10 mg oral tablet (9 sources)Muscle RelaxantStart: 07-11-2024 End: 23-51-8389vnxp 1 tablet by mouth twice daily as neededcyclobenzaprine (FLEXERIL) 10 MG tablet Take 1 tablet by mouth 2 times daily as needed 07/11/2024 Activedexamethasone 1 mg oral tablet (1 source)CorticosteroidStart: 07-30-2024 End: 55-32-9471xcwj 1 tablet by mouth once in the eveningdexAMETHasone (DECADRON) 1 mg tablet Indications: 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CMS-HCC) Take 1 tablet (1 mg total) by mouth once for 1 dose. Please take at 11:00 p.m. the night before cortisol lab test. 1 tablet 07/30/2024 07/30/2024 Active0.5 ml dulaglutide 3 mg/ml auto-injector (20 sources)GLP-1 Receptor AgonistStart: 06-82-2455wadrwx 1.5 mg by subcutaneous injection every weekTrulicity 1.5 MG/0.5ML solution pen-injector Inject 1.5 mg under the skin 1 (one) time per week. 02/02/2023 Active End: 49-65-4080pvllhmvdghw (TRULICITY) 0.75 mg/0.5 mL pen injector Inject under the skin every 7 days. 07/08/2025 Discontinued (Therapy completed)Dulaglutide (TRULICITY SC) Inject into the skin ActiveDulaglutide (TRULICITY SC) Inject into the skin 0 ActiveDulaglutide (TRULICITY SC) Inject into the skin 0 Suspended glyBURIDE 5 mg oral tablet (20 sources)SulfonylureaStart: 49-54-5759jomWLCNJX (DIABETA) 5 mg tablet Take 1 tablet (5 mg total) by mouth as needed. 12/14/2020 Activehydrocortisone 10 mg/ml topical cream (1 source)CorticosteroidStart: 58-39-6457yjsjytdkfffivi 1 % cream Apply to affected area 2 times daily 0 05/19/2021 Activeibuprofen 800 mg oral tablet (7 sources)Nonsteroidal Anti-inflammatory Drugtake 1 tablet by mouth every eight hours as needed for painibuprofen (ADVIL;MOTRIN) 800 MG tablet Take 1 tablet by mouth every 8 hours as needed for Pain Activelisinopril 40 mg oral tablet (20 sources)Angiotensin Converting Enzyme InhibitorStart: 04-86-9923bwvz 1 tablet by mouth in the morninglisinopril (PRINIVIL,ZESTRIL) 40 mg tablet Take 1 tablet (40 mg total) by mouth in the morning. 08/15/2015 Activetake 2 tablets by mouth once dailylisinopril (PRINIVIL;ZESTRIL) 20 MG tablet Take 2 tablets by mouth daily Activeloratadine 10 mg oral tablet (1 source)Start: 55-00-4150oqoe 1 tablet by mouth in the morningloratadine (Claritin) 10 MG tablet Take 10 mg by mouth in the morning. 03/27/2023 Active metFORMIN hydrochloride 500 mg oral tablet (20 sources)Biguanidetake 1 tablet by mouth in the morningmetFORMIN (Glucophage) 500 MG tablet Take 500 mg by mouth in the morning and 500 mg in the evening.Take with meals. ActiveMultiple Vitamin (Multi Vitamin) tablet (1 source)Multiple Vitamin (Multi Vitamin) tablet 1 (one) time each day at the same time. Activenaproxen 375 mg oral tablet (5 sources)Nonsteroidal Anti-inflammatory DrugStart: 06-24-2024 End: 20-63-9602himu 1 tablet by mouth in the morning, then take 1 tablet by mouth at mealtimenaproxen (NAPROSYN) 375 MG tablet TAKE 1 TABLET BY MOUTH IN THE MORNING AND 1 IN THE EVENING WITH AMEAL FOR 7 DAYS 06/25/2024 Activeomeprazole 40 mg delayed release oral capsule (4 sources)Proton Pump InhibitorStart: 64-82-1012ekcajpuosy (PRILOSEC) 40 MG delayed release capsule TAKE 1 CAPSULE BY MOUTH ONCE DAILY 30 MINUTES BEFORE MORNING MEAL 05/04/2024 Activepolyethylene glycol 3350 66782 mg powder for oral solution (1 source)Osmotic Laxativepolyethylene glycol, PEG, 3350 (MiraLax) 17 GM/SCOOP powder Take 17 g by mouth 1 (one) time. ActivepredniSONE 2.5 mg oral tablet (1 source)take 1 tablet by mouth once dailypredniSONE (DELTASONE) 2.5 MG tablet Take 1 tablet by mouth daily Activesodium chloride 0.111 meq/ml nasal solution (17 sources)Start: 97-29-7675nsyswn chloride (AYR) 0.65 % drops Administer 2 drops into each nostril as needed (nasal dryness). 30 mL 12/14/2024 ActiveStart: 64-68-7982IfjpgCOViqs, at 100 mL/hr, CONTINUOUS, Starting on Fri10/25/24 at 0700, Pre-op (day of surgery)Start: 02-07-2023 End: 44-84-4257hqmexk chloride (OCEAN) 0.65 % nasal spray Administer 1 spray into each nostril as needed for congestion. 15 mL 02/07/2023 08/26/2024 DiscontinuedStart: 82-36-4583zbksdl chloride flush 0.9 % injection 5-40 mL spironolactone 25 mg oral tablet (2 sources)Aldosterone AntagonistStart: 07-71-4325xfeq 1 tablet by mouth in the morningspironolactone (ALDACTONE) 25 mg tablet Take 1 tablet (25 mg total) by mouth in the morning. 90 tablet 3 07/08/2025 Activesucralfate 100 mg/ml oral suspension (2 sources)Aluminum ComplexStart: 12-12-4255ifqf 1 tablet by mouth four times dailysucralfate (CARAFATE) 1 GM/10ML suspension Take 10 mLs by mouth 4 times daily Substitute 1 g Carafate tablets and instruct patient how to create slurry at home, if financially advantageous to patient. 420 mL 1 04/03/2021 Active sulfamethoxazole 800 mg / trimethoprim 160 mg oral tablet (1 source)Dihydrofolate Reductase Inhibitor Antibacterial, Sulfonamide AntimicrobialStart: 00-11-5081qfke 1 tablet by mouth twice daily at bedtime sulfamethoxazole-trimethoprim (BACTRIM DS;SEPTRA DS) 800-160 MG per tablet TAKE 1 TABLET BY MOUTH TWICE DAILY FOR 5 DAYS (MORNING AND BEFORE BEDTIME) 0 12/24/2021 ActivetiZANidine 2 mg oral tablet (1 source)Central alpha-2 Adrenergic AgonistStart: 26-46-9372duld 1 tablet by mouth oncetiZANidine (Zanaflex) 2 MG tablet Take 2 mg by mouth 1 (one) time. 02/13/2023 Active Completed/Discontinued Medications MedicationDrug Class(es)DatesSig (Normalized)Sig (Original)acetaminophen 325 mg / HYDROcodone bitartrate 5 mg oral tablet (2 sources)Opioid AgonistStart: 06-15-2024 End: 11-52-9479klwu 1 tablet by mouth every six hoursHYDROcodone-acetaminophen (NORCO) 5-325 MG per tablet Take 1 tablet by mouth every 6 hours. 06/15/2024 10/05/2024 Discontinued (Therapy completed)celecoxib 100 mg oral capsule (2 sources)Nonsteroidal Anti-inflammatory DrugStart: 08-02-2024 End: 01-76-6755wugf 1 capsule by mouth once dailycelecoxib (CELEBREX) 100 MG capsule TAKE 1 CAPSULE BY MOUTH ONCE DAILY FOR 10 DAYS 08/02/2024 10/05/2024 Discontinued (Therapy completed)clotrimazole 10 mg/ml topical cream (18 sources)Azole AntifungalStart: 06-16-2024 End: 44-12-4598zejptbrgeatg (LOTRIMIN) 1 % cream Apply to affected area 2 times daily 15 g 06/16/2024 07/08/2025 Discontinued (Therapy completed)Start: 05-27-2022 End: 43-36-3911bpnusyzhoagd (LOTRIMIN) 1 % cream Apply to affected area 2 times daily 05/27/2022 10/05/2024 Discontinued (Therapy completed)Start: 05-27-2022 End: 96-04-5576owrilcrzrnpi (LOTRIMIN) 1 % cream Apply to affected area 2 times daily 15 g 05/27/2022 12/02/2023 Discontinueddiclofenac sodium 0.01 mg/mg topical gel (7 sources)Nonsteroidal Anti-inflammatory DrugStart: 07-18-2024 End: 14-01-6284gsqxgdfdsa sodium (VOLTAREN) 1 % GEL Apply 2 g topically 4 times daily 07/18/2024 10/05/2024 Discontinued (Therapy completed)esomeprazole 20 mg granules for oral suspension (5 sources)Proton Pump Inhibitor End: 47-17-0600lfzb 1 dose by mouth once daily as neededesomeprazole Magnesium (NEXIUM) 20 MG PACK Take 1 packet by mouth daily as needed 10/05/2024 Discont inued (Therapy completed)estradiol 0.1 mg/ml vaginal cream (3 sources)EstrogenStart: 08-05-2023 End: 55-57-8343shylshnjC (ESTRACE) 0.01 % (0.1 mg/gram) vaginal cream Apply a small dab every other night around urethra 42.5 g 08/05/2023 12/02/2023 Discontinuedfamotidine 20 mg oral tablet (1 source)Histamine-2 Receptor AntagonistStart: 05-26-2023 End: 16-92-9685cpxb 1 tablet by mouth once dailyfamotidine (PEPCID) 20 MG tablet Take 1 tablet by mouth nightly 30 tablet 2 05/26/2023 10/05/2024 Discontinued (Therapy completed)fluconazole 150 mg oral tablet (2 sources)Azole AntifungalStart: 06-16-2024 End: 91-49-8039lbomoxknsgt (DIFLUCAN) 150 MG tablet TAKE ONE TABLET BY MOUTH A ONE-TIME DOSE 06/16/2024 10/05/2024 Discontinued (Therapy completed) fluticasone propionate 0.05 mg/actuat metered dose nasal spray (13 sources)CorticosteroidStart: 12-14-2024 End: 96-18-0007wcib 1 spray(s) nasal route in the morningfluticasone propionate (FLONASE) 50 mcg/actuation nasal spray Administer 1 spray into each nostril in the morning. 16 g 12/14/2024 07/08/2025 Discontinued (Therapy completed)Start: 09-24-2023 End: 28-33-7488oukk 1 spray(s) nasal route in the morningfluticasone propionate (FLONASE) 50 mcg/actuation nasal spray Administer 1 spray into each nostril in the morning. 16 g 09/24/2023 08/26/2024 Discontinuedgabapentin 300 mg oral capsule (4 sources)Anti-epileptic AgentStart: 07-13-2024 End: 62-07-3257fwoi 1 capsule by mouth once daily, then take 1 capsule by mouth twice daily, then take 1 capsule by mouth three times dailygabapentin (NEURONTIN) 300 MG capsule TAKE 1 CAPSULE BY MOUTH ONCE DAILY FOR 3 DAYS , THEN TAKE 1 CAPSULE BY MOUTH TWICE DAILY FOR 3 DAYS, THEN TAKE 1 CAPSULE BY MOUTH THREE TIMES DAILY FOR THE REMAINING. 07/13/2024 10/05/2024 Discontinued (Therapy completed)Start: 05-10-2024 End: 09-33-7703ycek 1 capsule by mouth twice dailygabapentin (NEURONTIN) 100 MG capsule Take 1 capsule by mouth 2 times daily. 05/10/2024 10/05/2024 D iscontinued (Therapy completed)12 hr guaiFENesin 600 mg / pseudoephedrine hydrochloride 60 mg extended release oral tablet (18 sources)alpha-Adrenergic AgonistStart: 05-02-2023 End: 78-55-9310mqgo 1 tablet by mouth every twelve hourspseudoephedrine- guaiFENesin (MUCINEX D) 60-600 mg per 12 hr tablet Take 1 tablet by mouth every 12 (twelve) hours. 15 tablet 05/02/2023 07/08/2025 Discontinued (Therapy completed)3 ml insulin lispro 100 unt/ml pen injector (2 sources)Insulin AnalogStart: 08-02-2024 End: 62-32-6497BCIOUTT KWIKPEN 100 UNIT/ML SOPN USE DIRECTED PER SLIDING SCALE BEFORE MEALS AND AT BEDTIME FOR 10 DAYS. 141-200 = 3 UNITS, 201-250 = 5 UNITS, 251-300 = 8 UNITS, 301-350 = 12 UNITS, 351-400 = 15 UNITS GREATER THAN 400 15 UNITS AND CALL PRACTIIONER 08/02/2024 10/05/2024 Discontinued (Therapy completed)lidocaine 0.05 mg/mg medicated patch (9 sources)Antiarrhythmic, Amide Local AnestheticStart: 04-04-2024 End: 88-43-5424shdwn 1 dose transdermal route once daily, then apply 1 dose transdermal route every twelve hourslidocaine (LIDODERM) 5 % Indications: Bilateral low back pain with bilateral sciatica, unspecified chronicity Place 1 patch on the skin daily. Remove & Discard patch within 12 hours or as directed by 30 patch 04/04/2024 08/26/2024 DiscontinuedStart: 10-26-2023 End: 41-23-8165zmoly 1 dose transdermal route once daily, then apply 1 dose transdermal route every twelve hourslidocaine (LIDODERM) 5 % Place 1 patch on the skin daily. Remove & Discard patch within 12 hours or as directed by 30 patch 10/26/2023 12/02/2023 Discontinuedmiscellaneous medical supply [facility] [place] (18 sources) End: 07-45-5199uxrxegxegfmdt medical supply [facility] 07/08/2025 Discontinued (Therapy completed)misc[facility] [place] tablet Active misc[facility] [place] 1 tablet 0 Activemupirocin 20 mg/ml topical cream (3 sources)RNA Synthetase Inhibitor AntibacterialStart: 08-09-2021 End: 90-68-0762ahamoymob (BACTROBAN) 2 % cream Apply topically 3 times daily 08/09/2021 10/05/2024 Discontinued (Therapy completed)nystatin 766196 unt/ml topical cream (14 sources)Polyene AntifungalStart: 01-18-2024 End: 40-96-9703tagfowbi (MYCOSTATIN) cream Apply 1 Application topically in the morning and 1 Application before bedtime. 30 g 01/18/2024 07/08/2025 Discontinued (Therapy completed)Start: 25-89-8935nluuqnzv (Mycostatin) 838803 UNIT/GM powder Apply topically 2 (two) times a day. 02/06/2023 Activeoxybutynin chloride 5 mg oral tablet (2 sources)Cholinergic Muscarinic AntagonistStart: 08-02-2024 End: 16-70-8260xjrh 1 tablet by mouth once dailyoxyBUTYnin (DITROPAN) 5 MG tablet TAKE 1 TABLET BY MOUTH ONCE DAILY FOR 10 DAYS 08/02/2024 10/05/2024 Discontinued (Therapy completed)traMADol hydrochloride 50 mg oral tablet (2 sources)Opioid AgonistStart: 06-01-2024 End: 97-57-2789qhvv 1 tablet by mouth every six hourstraMADol (ULTRAM) 50 MG tablet Take 1 tablet by mouth every 6 hours. for 7 days 06/01/2024 10/05/2024 Discontinued (Therapy completed)triamcinolone acetonide 1 mg/ml topical cream (8 sources)CorticosteroidStart: 01-18-2024 End: 33-47-1636oorqnyydhzipt (KENALOG) 0.1 % cream Apply 1 Application topically 2 times daily 01/18/2024 10/05/2024 Discontinued (Therapy completed)trospium chloride 20 mg oral tablet (2 sources)Cholinergic Muscarinic AntagonistStart: 05-15-2023 End: 65-27-3436stwq 1 tablet by mouth twice dailytrospium (SANCTURA) 20 MG tablet Indications: Urinary frequency , Urinary urgency , Mixed incontinence Take 1 tablet by mouth 2 times daily 60 tablet 3 05/15/2023 10/05/2024 Discontinued (Therapy completed) Problems Active Problems Problem ClassificationProblemDateDocumented DateEpisodic/ChronicAbdominal pain (6 sources)Abdominal pain; Translations: [Unspecified abdominal pain]Onset: 625379-95-7314LkogmajrTwdtfibf mellitus without complication (20 sources)Diabetes mellitus; Translations: [Type 2 diabetes mellitus]Onset: 982297-57-8442WjcgoouUapyyzlbo of lipid metabolism (20 sources)Hyperlipidemia; Translations: [Hyperlipidemia, unspecified]Onset: 796870-85-5277HbzmqbvIlaoikalzy disorders (12 sources)Gastroesophageal reflux disease; Translations: [Gastro-esophageal reflux disease without esophagitis]Onset: 93-28-5887WswnnctLwrjkkzgg hypertension (20 sources)Hypertensive disorder; Translations: [Essential (primary) hypertension]Onset: 902714-73-0672AsjzzkzKtkpaebigsojp symptoms and ill- defined conditions (20 sources)Mixed incontinence; Translations: [Urinary incontinence]Onset: 592462-78-5342KhpjcldStylepjgwggs breast conditions (1 source)Mastodynia; Translations: [Mastodynia]Onset: 85-41-6041Psncqnmd Osteoarthritis (20 sources)Osteoarthritis of right knee joint; Translations: [Unilateral primary osteoarthritis, right knee]Onset: 061704-67-9507Hxbakqg Osteoarthritis (1 source)Osteoarthritis of right knee joint; Translations: [Osteoarthritis of right knee]Onset: 12-41-2884Yhawivajxoqs (8 sources)Senile osteoporosis; Translations: [Age-related osteoporosis without current pathological fracture]Onset: 594877-48-8983DxelrtiOmavk aftercare (1 source)terminologist (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 hypoglycemic drugs; Translations: [LABOR RELATIONS MANAGER USE ORAL HYPOGLYCEMIC DX]Onset: 18-15-9408MvbcxsemTkodw aftercare (1 source)Other ad terminal makeup operator (current) drug therapy; Translations: [OTH ASSISTED CURRENT DRUG THERAPY]Onset: 42-96-3098FlhtrydvQfiiu and unspecified benign neoplasm (1 source)History of polyp of colon; Translations: [Personal history of colonic polyps]EpisodicOther connective tissue disease (1 source)Presence of left artificial knee joint; Translations: [PRESENCE LEFT ARTIFICIAL KNEE JOINT]Onset: 36-44-0589MmizeczEczlw connective tissue disease (1 source)Presence of right artificial knee joint; Translations: [Presence of right artificial knee joint]Onset: 49-49-7869ItrxdlmZvlrd connective tissue disease (1 source)Fibromyalgia; Translations: [FIBROMYALGIA]Onset: 85-54-8723Gfzqeivx Other diseases of bladder and urethra (5 sources)Overactive bladder; Translations: [Overactive bladder]Onset: 965547-04-5904RilsqttZousw ear and sense organ disorders (5 sources)Hearing loss; Translations: [Unspecified hearing loss, unspecified ear]Onset: 711173-44-1372NmaemeyKvblw ear and sense organ disorders (5 sources)Sensorineural hearing loss, bilateral; Translations: [Sensorineural hearing loss, bilateral]Onset: 530890-13-7523NdlpbrfVaebm endocrine disorders (1 source)Adrenal incidentaloma; Translations: [Other specified disorders of adrenal gland]15-74-8855AcffhuwVnrin lower respiratory disease (1 source)Shortness of breath; Translations: [Shortness of breath]Onset: 15-71-9655QomdutjqKotpm nervous system disorders (1 source)Other chronic pain; Translations: [Other chronic pain]Onset: 23-45-1392FplxmrbMzgop nervous system disorders (1 source)Polyneuropathy, unspecified; Translations: [Polyneuropathy, unspecified]Onset: 67-35-8760VowkmqoVosad non-traumatic joint disorders (1 source)Pain in left knee; Translations: [Pain in left knee]Onset: 06-20-2025 EpisodicOther non-traumatic joint disorders (1 source)Pain in left hip; Translations: [Pain in left hip]Onset: 05-02-2025 EpisodicOther nutritional; endocrine; and metabolic disorders (1 source)Morbid obesity; Translations: [Obesity, Class III, BMI 40-49.9 (morbid obesity)]Onset: 20-94-3126OqteytzZxlox nutritional; endocrine; and metabolic disorders (1 source)Obesity, unspecified; Translations: [Obesity, unspecified]Onset: 99-42-0245WnsvieiBndqs upper respiratory infections (1 source)Chronic sinusitis; Translations: [Chronic sinusitis, unspecified] Onset: 794993-19-2635SdhwmlrNyzwbtny of female genital organs (5 sources)Disorder of rectum; Translations: [Rectocele]Onset: 04-27-2023 06-59-0342KmnselxFuuqbyva codes; unclassified (5 sources)Obstructive sleep apnea (adult) (pediatric); Translations: [OBSTRUCTIVE SLEEP APNEA]Onset: 89-07-3286AjsescaTpfvbynx codes; unclassified (6 sources)Obstructive sleep apnea syndrome; Translations: [Obstructive sleep apnea (adult) (pediatric)]Onset: 906673-04-3321XpwbcnwJmmgdoab codes; unclassified (1 source)Acquired absence of other specified parts of digestive tract; Translations: [ACQ ABSENCE OTH PART DIGESTV TRACT]Onset: 16-08-2277Essiakir Schizophrenia and other psychotic disorders (1 source)Schizophrenia, unspecified; Translations: [SCHIZOPHRENIA UNSPECIFIED] Onset: 16-11-6249MvpbtnsWgyrfinrgsz; intervertebral disc disorders; other back problems (20 sources)Herniation of nucleus pulposus of lumbar intervertebral disc; Translations: [Other intervertebral disc displacement, lumbar region]Onset: 08-19-2019 Resolved: 129354-39-1703JfqaivfMamzfuu disorders (5 sources)Non-toxic multinodular goiter; Translations: [Nontoxic multinodular goiter]Onset: 808889-97-2667FnvmmagYbyxmprkkyxx (1 source)ASSISTED INJECT NONINSULN ANTIDIAB; Translations: [ASSISTED INJECT NONINSULN ANTIDIAB]Onset: 80-53-6656Kubekuletvqd (1 source)New PatientOnset: 08-04-3324Tvwthngwcdje (1 source)Ear FullnessOnset: 12-55-5356Ilpaoloqyktg (1 source)Subacute cough; Translations: [Subacute cough]Onset: 12-14-2024 Unclassified (1 source)Wound CheckOnset: 73-59-2360Shnggpprxhkl (1 source)Acute cough; Translations: [Acute cough]Onset: 97-38-4640Mnanhthmacbk (1 source)Pre-op ExamOnset: 52-18-6328Cjhonjeazlvb (1 source)Legs Swelling and HurtOnset: 07-18-2024 Past or Other Problems Problem ClassificationProblemDateDocumented DateEpisodic/ChronicAbdominal hernia (20 sources)Diaphragmatic hernia without obstruction or gangrene; Translations: [Ventral hernia without obstruction or gangrene]Onset: EpisodicBacterial infection; unspecified site (1 source)Other specified bacterial agents as the cause of diseases classified elsewhere; Translations: [Other specified bacterial agents as the cause of diseases classified elsewhere]Onset: 95-81-3352EmfzrymeKdazmdf dysrhythmias (20 sources)Tachyarrhythmia ; Translations: [Tachycardia, unspecified]Onset: 723414-63-4132RnfajyxzKittyizc of mouth; excluding dental (5 sources)Uvular hypertrophy; Translations: [Other lesions of oral mucosa] Onset: 823261-44-0637MupweidtKlhaqnwiktvhj and screening for infectious disease (1 source)Carrier or suspected carrier of Methicillin resistant Staphylococcus aureus; Translations: [Carrieror suspected carrier of methicillin resistant Staphylococcus aureus]Onset: 16-52-4181UfpmzadsPrkwybgnaoob diseases of female pelvic organs (6 sources)Acute vaginitis; Translations: [Acute vaginitis]Onset: 10-29-2019 95-96-6497YreytsdkKtaygoqjxnfls mental health disorders (1 source)Other symptoms and signs involving emotional state; Translations: [Other symptoms and signs involving emotional state]Onset: 07-53-8159Fmvakfou Mood disorders (19 sources)Mood disordersOnset: 984116-35-3960Wvwgufmmqul chest pain (20 sources)Chest pain; Translations: [Chest pain, unspecified]Onset: 03-22-2020 Resolved: 096459-15-2841OivgrsqgHyuto acquired deformities (6 sources)Lumbar spondylolisthesis; Translations: [Spondylolisthesis, lumbar region]Onset: 529010-19-4038LbbvbwxtEbzep acquired deformities (2 sources)Spondylolisthesis, lumbar region; Translations: [Spondylolisthesis, lumbar region]Onset: 05-29-2022 Resolved: 53-69-6784JfhgudmgBvmwx aftercare (4 sources)Long-term current use of drug therapy; Translations: [Long-term (current) use of injectable non-insulin antidiabetic drugs]Onset: 01-06-2023 83-41-2533YptzjpwqIhker connective tissue disease (20 sources)History of prosthetic unicompartmental arthroplasty of right knee; Translations: [Presence of rightartificial knee joint]Onset: 12-21-2012 Resolved: 615472-41-8281MxlecizQgsxl connective tissue disease (1 source)Pain in right thigh; Translations: [Pain in right thigh]Onset: 11-54-6398NgmthwucFwtxu connective tissue disease (1 source)Pain in lower limbOnset: 62-83-7397GimxhvzrFsnkr diseases of kidney and ureters (20 sources)Cyst of kidney; Translations: [Cyst of kidney, acquired]Onset: 313563-53-0547AwdeebjhVkrym ear and sense organ disorders (1 source)Other specified disorders of ear, bilateral; Translations: [Other specified disorders of ear, bilateral]Onset: 03-53-9400PjzaqrijBldsl ear and sense organ disorders (1 source)Ear problemOnset: 83-50-3155KegskwmiJgpsp gastrointestinal disorders (8 sources)Dysphagia; Translations: [Dysphagia, unspecified]Onset: 12-13-2013 55-68-5839ZwfpgixzOjsas gastrointestinal disorders (3 sources)Alteration in bowel elimination; Translations: [Change in bowel habit]Onset: 624343-49-9794XsxurtfxKuexr gastrointestinal disorders (5 sources)Pain associated with defecation; Translations: [Other specified symptoms and signs involving the digestive system and abdomen]Onset: 08-02-2024 32-70-4209GurldodkJdaiq gastrointestinal disorders (4 sources)Altered bowel function; Translations: [Change in bowel habit]Onset: 838915-88-8987GujklrllGyzrk lower respiratory disease (1 source)Solitary pulmonary nodule; Translations: [Solitary pulmonary nodule] Onset: 18-32-1091YpiqcyfrMzqaz lower respiratory disease (20 sources)Dyspnea; Translations: [Shortness of breath]Onset: 03-22-2020 Resolved: 712318-45-8446CigonjgxZbbch lower respiratory disease (1 source)Nodule of lung; Translations: [Solitary pulmonary nodule]12-08-2023 EpisodicOther lower respiratory disease (1 source)CoughOnset: 07-67-5910MuuzvsvsKgshf nervous system disorders (1 source)Tremor, unspecified; Translations: [Tremor, unspecified]Onset: 16-39-6708PdnohcwkAqukm non-traumatic joint disorders (1 source)Pain in right knee; Translations: [Pain in right knee]Onset: 13-91-9691VmdvqktcZxzwi non-traumatic joint disorders (1 source)Knee painOnset: 43-35-6600MnuitamtDmsaz nutritional; endocrine; and metabolic disorders (7 sources)Obesity; Translations: [Obesity, unspecified]Onset: 12-21-2012 Resolved: 38-67-4160CwjadycUwjwg nutritional; endocrine; and metabolic disorders (20 sources)Severe obesity; Translations: [Morbid (severe) obesity due to excess calories]Onset: 12-22-2012 Resolved: 055424-40-7751TynpsctKeqlz nutritional; endocrine; and metabolic disorders (19 sources)Body mass index 40+ - severely obese; Translations: [Morbid (severe) obesity due to excess calories]Onset: 12-22-2012 Resolved: 296975-33-9185DxkukppYwpcm nutritional; endocrine; and metabolic disorders (20 sources)Body mass index 30+ - obesity; Translations: [Obesity, unspecified] Onset: 06-15-2018 Resolved: 972113-79-7295JenxwvdVbnek nutritional; endocrine; and metabolic disorders (1 source)Personal history of other endocrine, nutritional and metabolic disease; Translations: [Personal history of other endocrine, nutritional and metabolic disease]Onset: 32-32-7903YvifcuhbIcchq screening for suspected conditions (not mental disorders or infectious disease) (3 sources)Encounter for screening for cardiovascular disorders; Translations: [Encounter for screening mammogram for malignant neoplasm of breast]Onset: 40-61-1044GodvwicsPmuqu skin disorders (1 source)Corns and callosities; Translations: [Corns and callosities]Onset: 22-43-0311IwsxyvcsXffgs upper respiratory disease (1 source)Nasal congestionOnset: 04-59-1727AydmwsnzEkzry upper respiratory infections (1 source)Acute sinusitis, unspecified; Translations: [Acute sinusitis, unspecified]Onset: 66-72-6856ZtzflkazQpmygwzr codes; unclassified (1 source)History of operative procedure on knee; Translations: [S/P right unicompartmental knee replacement]Onset: 92-03-1465SzqxpptfIybtvlqg codes; unclassified (7 sources)Acquired absence of cervix and uterus; Translations: [Acquired absence of both cervix and uterus]Onset: 11-02-2019 Resolved: 203625-23-5524MiezxcnlHxnplfaq codes; unclassified (7 sources)Disorder of digestive tract; Translations: [Acquired absence of other specified parts of digestive tract]Onset: 11-02-2019 Resolved: 214541-20-9952WadtfskxGaznnbbc codes; unclassified (1 source)Pain, unspecified; Translations: [Pain, unspecified]Onset: 11-18-2023 EpisodicResidual codes; unclassified (1 source)Chills (without fever); Translations: [Chills (without fever)]Onset: 22-58-4482YvhflppyQvwgepiz codes; unclassified (1 source)ChillOnset: 98-84-9580ZgolxkulDywscgnsqrq; intervertebral disc disorders; other back problems (11 sources)Spinal stenosis of lumbar region; Translations: [Spinal stenosis, lumbar region with neurogenic claudication]Onset: 05-29-2022 Resolved: 15-38-6110AfvuxhyeEvhsmlygtnvl (3 sources)Patient encounter status; Translations: [Encounter for well woman exam with routine gynecological exam]Onset: 802125-34-5561Lsxalkuvfzib (4 sources)Onset: 680676-45-8821Hrcrwjx tract infections (19 sources)Recurrent urinary tract infection; Translations: [Urinary tract infection, site not specified]Onset: 520716-76-9306Layoacjq Results Test NameValueInterpretationReference RangeFacilityMAMM DIAGNOSTIC BILATERAL W CADon 35-84-3334AOTG DIAGNOSTIC BILATERAL W CADMAMM DIAGNOSTIC BILATERAL W CAD MARI JAMISON 1950 [id number] EXAM: MAMM DIAGNOSTIC BILATERAL W CAD, 07/12/2025 [...] family medical history was used calculate their Tyrer-zi lifetime risk of malignancy. Scores less than 20% are not considered high risk per ACR guidelines and patient should continue with the above recommendation. Patient was given the results before leaving the department. Finalized by Bennie Esquivel MD on 07/12/2025 8:28 AM 1 b MAMM 1 YRNormalProMethodist Charlton Medical CenterB-TYPE NATRIURETIC PEPTIDEon 07-08-2025 Natriuretic peptide B (Bld) [Mass/Vol]65 pg/mLNormal<=100[facility] Medical CenterComment on above:Performed By: #### 06994-9, CBCA, HA1C, BMP #### [facility] ([id number]) [address] [place] [address], [address] [place] [address] #### PINR, [id number] #### [facility] ([id number]) [address] [place] [address] 22289VZPVH METABOLIC PANELon 01-60-0428Nfjra gap [Moles/Vol]9 mmol/L Normal5-15[facility] Vincent Medical CenterComment on above:Performed By: #### 56062-4, CBCA, HA1C, BMP #### [facility] ([id number]) [address] [place] [address], [facility] [address] [place] [address] #### PINR, [id number] #### [facility] ([id number]) [address] [place] [address] 00022Obcbpvr [Mass/Vol]9.5 mg/dLNormal8.5-10.5ProMedMount Zion campusComment on above:Performed By: #### 31871-5, CBCA, HA1C, BMP #### [facility] ([id number]) [address] [place] [address], [address] [place] [address] #### PINR, [id number] #### [facility] ([id number]) [address] [place] [address] 83410Ggszdvui [Moles/Vol]102 mmol/CTfwtml22-318VfhDdbvoeMethodist Charlton Medical CenterComment on above:Performed By: #### 57923-7, CBCA, HA1C, BMP #### [facility] ([id number]) [address] [place] [address], [address] [place] [address] #### PINR, [id number] #### [facility] ([id number]) [address] [place] [address] [id number] [Moles/Vol]25 mmol/XKgvofm21-92FidLglaroOhioHealth Dublin Methodist Hospital Comment on above:Performed By: #### 63878-1, CBCA, HA1C, BMP #### [facility] ([id number]) [address] [place] [address], [address] [place] [address] #### PINR, [id number] #### [facility] ([id number]) [address] [place] [address] 21670Bvazdemoau [Mass/Vol]0.71 mg/dLNormal0.40-1.00ProMethodist Charlton Medical CenterComment on above:Result Comment: METHOD TRACEABLE TO IDMS STANDARD Performed By: #### 67302-4, CBCA, HA1C, BMP #### [facility] ([id number]) [address] [place] [address], [address] [place] [address] #### PINR, [id number] #### [facility] ([id number]) [address] [place] [address] 40182VNJ/1.73 sq M.predicted among non-blacks MDRD (S/P/Bld) [Vol rate/Area]89 mL/min/{1.73_m2}Normal>=60ProMethodist Charlton Medical CenterComment on above:Result Comment: Reported eGFR is based on the CKD-EPI 2020 equation that does not use a race coefficient.Performed By: #### 33015-8, CBCWing, HA1C, BMP #### [facility] ([id number]) [address], [address] [place] [address] #### TAWNY, 02828-5 #### [facility] ([id number]) [address] [place] [address] 40626Ehhkjuw [Mass/Vol]344 mg/kAWrqv75-61ObnSlrdfbMercy Health St. Vincent Medical Center Comment on above:Performed By: #### 66090-2, [place] HA1C, BMP #### [facility] ([id number]) [address] [facility], [address] [place] [address] #### TAWNY 41866-5 #### [facility] ([id number]) [address] [place] [address] 67404Xvhdduvrf [Moles/Vol]4.3 mmol/LNormal3.5-5.0ProMethodist Charlton Medical CenterComment on above:Performed By: #### 68171-4, [place]YENNE, HA1C, BMP #### [facility] ([id number]) [address] [facility], [address] [place] [address] #### TAWNY 89058-4 #### [facility] ([id number]) [address] [place] [address] 12986Hlhtud [Moles/Vol]136 mmol/GQsozky313-790YmrJcvftj [facility]remont HospitalComment on above:Performed By: #### 03722-5, CBCWing, HA1C, BMP #### [facility] ([id number]) [address] [facility], [address] [place] [address] #### TAWNY, 13923-5 #### [facility] ([id number]) [address] [place] [address] 34263Hwqv nitrogen [Mass/Vol]20 mg/dLNormal5-27[facility] St. Vincent Medical CenterComment on above:Performed By: #### 74321-5, CBCA, HA1C, BMP #### [facility] ([id number]) [address] [facility], [address] [place] [address] #### PINR, [id number] #### [facility] ([id number]) [address] [place] [address], [place], [place] [address]QXZyf 30-53-2332Bmkquskrluyucv and review of laboratory results NormalDayton Children's HospitalNatriuretic peptide B (Bld) [Mass/Vol]65 pg/mLNINF - 100 pg/mLBelmont Behavioral HospitalCBCon 07-08-2025 Erythrocyte distribution width (RBC) [Ratio]14.4 %11.5 - 15 %Day[facility] Children's HospitalHematocrit (Bld) [Volume fraction]36 %35 - 47 %[facility] Hemoglobin (Bld) [Mass/Vol]11.8 g/dL11.7 - 15.5 g/dLDayton Children's Hospital Interpretation and review of laboratory resultsNormalDayton Children's HospitalMCH (RBC) [Entitic mass]27.9 pg27 - 34 CentervilleMCHC (RBC) [Mass/Vol]32.9 g/dL32 - 36 g/dLDayton Children's HospitalMCV (RBC) [Entitic vol]85 fL80 - 100 [facility] HospitalPlatelet mean volume (Bld) [Entitic vol]8.4 fL7 - 12 [facility] HospitalPlatelets (Bld) [#/Vol]230 10*3/[facility] HospitalRBC (Bld) [#/Vol]4.25 10*6/[facility] HospitalWBC LM Ql (Sput)5.2PAdvanced Surgical HospitalCBC (NO DIFF)on 15-15-6861Cjihvioomsc distribution width (RBC) [Ratio]14.4 %Kjkzpn07.5-[address] Vincent Medical CenterComment on above:Performed By: #### 15418-8, CBCA, HA1C, BMP #### [facility] ([id number]) [address], [address] [place] [address] #### PINR, [id number] #### [facility] ([id number]) [address] [place] [address] 95851Hbihzrlgdi (Bld) [Volume fraction]36.0 %Phjfuk48-21AlfPlhkwwMethodist Charlton Medical CenterComment on above:Performed By: #### 91532-2, CBCA, HA1C, BMP #### [facility] ([id number]) [address] [facility], [address] [place] [address] #### PINJeison, [id number] #### [facility] ([id number]) [address] [place] [address] 23510Ulacpakdms (Bld) [Mass/Vol]11.8 g/cPIwwzdh74.7-15.5Pro[facility] Medical CenterComment on above:Performed By: #### 07122-7, CBCA, HA1C, BMP #### [facility] ([id number]) [address] [facility], [address] [place] [address] #### PINR, [id number] #### [facility] ([id number]) [address] [place] [address] 04657RQK (RBC) [Entitic mass]27.9 bbEkzcga51-30IhvQldzhhMethodist Charlton Medical CenterComment on above:Performed By: #### 02281-7, CBCA, HA1C, BMP #### [facility] ([id number]) [address], [address] [place] [address] #### PINR, [id number] #### [facility] ([id number]) [address] [place] [address] 50389CGRS (RBC) [Mass/Vol]32.9 g/uPCnvxqi30-19LzeEnnbycMethodist Charlton Medical CenterComment on above:Performed By: #### 44370-6, CBCA, HA1C, BMP #### [facility] ([id number]) [address] [facility], [address] [place] [address] #### PINR, [id number] #### [facility] ([id number]) [address] [place] [address] 19381MYV (RBC) [Entitic vol]85 iSQjudws28-232DcvLwieyz [facility] HospitalComment on above:Performed By: #### 15423-5, CBCA, HA1C, BMP #### [facility] ([id number]) [address] [facility], [address] [place] [address] #### PINR, [id number] #### [facility] ([id number]) [address] [place] [address] 25561Lmvmsrpo mean volume (Bld) [Entitic vol]8.4 fLNormal7-12 [facility] Medical CenterComment on above:Performed By: #### 83619-2, CBCA, HA1C, BMP #### [facility] ([id number]) [address] [facility], [address] [place] [address] #### PINR, [id number] #### [facility] ([id number]) [address] [place] [address] 34579Sdtezycps (Bld) [#/Vol]230 10*3/uMNltlpq492-130WsyTbrdiv [facility] HospitalComment on above:Performed By: #### 29014-8, CBCA, HA1C, BMP #### [facility] ([id number]) [address] [facility], [address] [place] [address] #### PINR, [id number] #### [facility] ([id number]) [address] [place] [address] 63031LDY COUNT4.25 X10E12/LNormal3.8-5.2[facility] Comment on above:Performed By: #### 51370-1, CBCA, HA1C, BMP #### [facility] ([id number]) [address], [address] [place] [address] #### PINR, [id number] #### [facility] ([id number]) [address] [place], [place] [address]AVY (Bld) [#/Vol]5.2 10*3/uLNormal4-11[facility] Medical CenterComment on above:Performed By: #### 26830-7, CBCA, HA1C, BMP #### [facility] ([id number]) [address], [address] [place] [address] #### PINR, [id number] #### [facility] ([id number]) [address] [place], [place] [address]FBCD EKGon 17-35-1632PlhVkobisDayton Children's HospitalXR KNEE LT 3 VWSon 08-17-0670KY KNEE LT 3 VWSXR KNEE LT 3 VWS HISTORY: A 75-year-old [...] by Jair Sparks MD on 06/20/2025 1:[address] Vincent Medical CenterEKG 12 LeadOrdered By: Chucho Pickard on 43-63-1455Klnlem Uchz80ZCOUrg [facility] Work Phone: P Bljf39gjsvvtcGav [employer] Work Phone: P-R Yltprqqv934 [employer] Work Phone: Q-T Tlpswrig312 [employer] Work Phone: QRS Ucfqdbmt52 msBanner Payson Medical Center [employer] Work Phone: QTc Calculation (Bazett)431 msBanner Payson Medical Center [employer] Work Phone: R [employer] Phone: T Ktsd87nwwmcgiKbqIS[employer] Phone: Ventricular Mxul39ZGIIkw [employer] Phone: Bon [employer] Work Phone: [phone] 12 Leadon 14-59-5024Qfhxuf sinus rhythm Inferior infarct (cited on or before 20-Dec-2008) Cannot rule out Anterior infarct , age undetermined Abnormal ECG When compared with ECG of 25-Oct-2024 09:18, No significant change was found Confirmed by Chucho Pickard ([id number]) on 04/26/2025 8:06:11 PMSAINT [facility] RADIOLOGYChucho menendez MD - 04/26/2025 Normal sinus rhythm Inferior infarct (cited on or before 20-Dec-2008) Cannot rule out Anterior infarct , age undetermined Abnormal ECG When compared with ECG of 25-Oct-2024 09:18, No significant change was found Confirmed by Chucho Pickard ([id number]) on 04/26/2025 8:06:11 PM [facility] Who What WearCT BRAIN W CONTon 50-23-4146JB BRAIN W CONTCT BRAIN W CONT CT BRAIN W CONT, 03/24/2025 12:59 PM INDICATION: Shakiness TECHNIQUE: CT of the head performed following the uneventful administration of 100 mL Omnipaque 300intravenous contrast. Sagittal and coronal reformats created and reviewed in brain, bone, and soft tissue windows. COMPARISON: None. FINDINGS: No enhancing lesions. No acute intracranial hemorrhage within the limits of contrast enhanced exam. Ramirez-white differentiation is preserved. The ventricular system is normal in size and morphology. No abnormal extra-axialfluid collections or midline shift of structures. No [...] by Wild Naranjo MD on 03/28/2025 10:[address] Vincent Medical CenterXR KNEE LT MIN 4 VWSon 75-60-7133MU KNEE LT MIN 4 VWSXR KNEE LT MIN 4 VWS XR KNEE LT MIN 4 VWS: 03/24/2025 12:42 PM Clinical: Chronic knee pain EXAM: LEFT KNEE RADIOGRAPHS Comparison: 03/23/2022 Views: 4 Findings: There is no acute fracture, dislocation, or destructive lesion. Stable arthroplasty. Vascular calcifications. Impression: * No acute findings. Stable exam. Finalized by Ari Siegel MD on 03/26/2025 1:[address] Vincent Medical CenterXR KNEE RT MIN 4 VWSon 78-16-7837PA KNEE RT MIN 4 VWSXR KNEE RT MIN 4 VWS XR KNEE RT MIN 4 VWS: 03/24/2025 12:42 PM Clinical: Chronic knee pain EXAM: RIGHT KNEE RADIOGRAPHS Comparison: 11/29/2024 Views: 4 Findings: There is no acute fracture, dislocation, or destructive lesion. Stable arthroplasty. Vascular calcifications. Impression: * No acute findings. Stable exam. Finalized by Ari Siegel MD on 03/26/2025 1:29 PMNMagruder Memorial HospitalBASI METABOLIC PANELon 36-21-2833Pmlmo gap [Moles/Vol]8 mmol/LNormal 5-15Mer[facility] Health St. Vincent Medical CenterComment on above:Performed By: #### 82751-3, CBCA, HA1C, BMP #### [facility] ([id number]) [address], [address] [place] [address] #### PINR, [id number] #### [facility] ([id number]) [address] [place] [address] 16561Pamqkdo [Mass/Vol]10.1 mg/dLNormal8.5-10.5ProMedica [facility] Medical CenterComment on above:Performed By: #### 23092-6, CBCA, HA1C, BMP #### [facility] ([id number]) [address] [place] [address], [address] [place] [address] #### PINR, [id number] #### [facility] ([id number]) [address] [place] [address] 47704Cpnimcfi [Moles/Vol]103 mmol/DIxvnyl33-932JhhZnwkdjMethodist Charlton Medical CenterComment on above:Performed By: #### 25932-3, CBCA, HA1C, BMP #### [facility] ([id number]) [address] [place] [address], [address] [place] [address] #### PINR, [id number] #### [facility] ([id number]) [address] [place] [address] 65991DG6 [Moles/Vol]25 mmol/GGmyvnx79-08EgvVpllxyOhioHealth Dublin Methodist Hospital Comment on above:Performed By: #### 39655-6, CBCA, HA1C, BMP #### [facility] ([id number]) [address] [place] [address], [address] [place] [address] #### PINR, [id number] #### [facility] ([id number]) [address] [place] [address] 56597Kyuiuanplh [Mass/Vol]0.67 mg/dLNormal0.40-1.00ProMethodist Charlton Medical CenterComment on above:Result Comment: METHOD TRACEABLE TO IDMS STANDARD Performed By: #### 37150-1, CBCA, HA1C, BMP #### [facility] ([id number]) [address] [facility], [address] [place] [address] #### TAWNY 97887-8 #### [facility] ([id number]) [address] [place] [address] 27743BVLJ (CKD-EPI) NON-RACE DEPENDENT>^90Normal>=60ProMethodist Charlton Medical CenterComment on above:Result Comment: Reported eGFR is based on the CKD-EPI 2020 equation that does not use a race coefficient.Performed By: #### 90323-7, CBCA, HA1C, BMP #### [facility] ([id number]) [address] [facility], [address] [address] #### TAWNY 30140-6 #### [facility] ([id number]) [address] [place] [address] 36953Ydecxuc [Mass/Vol]163 mg/uSWxgy57-65AvvMctagdMethodist Charlton Medical Center Comment on above:Performed By: #### 38307-3, CBCA, HA1C, BMP #### [facility] ([id number]) [address] [facility], [address] [address] #### TAWNY 12333-2 #### [facility] ([id number]) [address] [place] [address] 79072Fbbejiujo [Moles/Vol]4.7 mmol/LNormal3.5-5.0ProMethodist Charlton Medical CenterComment on above:Performed By: #### 39653-0, CBCA, HA1C, BMP #### [facility] ([id number]) [address] [facility], [address] [address] #### TAWNY, 90534-9 #### [facility] ([id number]) [address] [place] [address] 80128Orahpy [Moles/Vol]136 mmol/KHvmche294-987GscJepaty Fremont HospitalComment on above:Performed By: #### 74092-9, CBCA, HA1C, BMP #### [facility] ([id number]) [address], [address] [place] [address] #### TAWNY, 53910-3 #### [facility] ([id number]) [address] [place] [address] 06741Htmp nitrogen [Mass/Vol]24 mg/dLNormal5-ProMethodist Charlton Medical CenterComment on above:Performed By: #### 81450-9, CBCA, HA1C, BMP #### [facility] ([id number]) [address] [facility], [address] [place] [address] #### TAWNY, 25484-9 #### [facility] ([id number]) [address] [place] [address] 31632PVX WITH AUTO DIFFERENTIALon 32-55-2066DWHFBGTIH ABSOLUTE COUNT (10*3/UL) BY AUTOMATED COUNT0.0 10*3/uLNormalProMethodist Charlton Medical CenterComhenry ford cottage hospital on above:Performed By: #### 76919-9, CBCA, HA1C, BMP #### [facility] ([id number]) [address] [facility], [address] [place] [address] #### PINR, [id number] #### [facility] ([id number]) [address] [place] [address] 50451RETXTHZWQ RELATIVE PERCENT BY AUTOMATED COUNT0.8 %Normal [facility] Medical CenterComhenry ford cottage hospital on above:Performed By: #### 03924-9, CBCA, HA1C, BMP #### [facility] ([id number]) [address] [facility], [address] [place] [address] #### PINR, [id number] #### [facility] ([id number]) [address] [place] [address] 28136IROZAWZWNOX DIFFERENTIAL TYPEAUTOMATED DIFFERENTIALNormal [facility] St[facility] Vincent Medical CenterComment on above:Performed By: #### 24558-8, CBCA, HA1C, BMP #### [facility] ([id number]) [address] [facility], [address] [place] [address] #### PINR, [id number] #### [facility] ([id number]) [address] [place] [address] 76241Czkthdpgapy (Bld) [#/Vol]0.2 10*3/uLNormalProMedica Los Angeles General Medical CenterComment on above:Performed By: #### 73112-1, CBCA, HA1C, BMP #### [facility] ([id number]) [address] [facility], [address] [place] [address] #### TAWNY 29176-7 #### [facility] ([id number]) [address] [place] [address] 02106ECJQVPMCVOQ RELATIVE PERCENT BY AUTOMATED COUNT4.1 %Normal [facility] Medical CenterComment on above:Performed By: #### 14081-9, CBCA, HA1C, BMP #### [facility] ([id number]) [address] [facility], [address] [place] [address] #### TAWNY, 74195-5 #### [facility] ([id number]) [address] [place] [address] 15686Zicioljqewx distribution width (RBC) [Ratio]15.2 %High11.5-[address] Vincent Medical CenterComment on above:Performed By: #### 60256-9, CBCA, HA1C, BMP #### [facility] ([id number]) [address] [facility], [address] [place] [address] #### TAWNY, 89864-5 #### [facility] ([id number]) [address] [place] [address] 36465Jhshuzzobd (Bld) [Volume fraction]33.4 %Gnn79-96KdlBwmyqqMethodist Charlton Medical CenterComment on above:Performed By: #### 58836-4, CBCA, HA1C, BMP #### [facility] ([id number]) [address], [address] [place] [address] #### TAWNY, 62233-6 #### [facility] ([id number]) [address] [place] [address] 22684Fnadbfxtep (Bld) [Mass/Vol]10.9 g/dLLow11.7-15.5Pro[facility] Medical CenterComment on above:Performed By: #### 07635-1, CBCA, HA1C, BMP #### [facility] ([id number]) [address], [address] [place] [address] #### TAWNY, 78125-2 #### [facility] ([id number]) [address] [place] [address] 96498SQLNIXRKCFW ABSOLUTE COUNT (10*3/UL) BY AUTOMATED COUNT2.0 10*3/uLNormalMercy Health St. Vincent Medical CenterComment on above:Performed By: #### 31284-1, CBCA, HA1C, BMP #### [facility] ([id number]) [address], [address] [place] [address] #### PINR, [id number] #### [facility] ([id number]) [address] [place] [address] 67545ORUVDHTPWAA RELATIVE PERCENT BY AUTOMATED COUNT36.8 %Normal [facility] Medical CenterComment on above:Performed By: #### 94537-7, CBCA, HA1C, BMP #### [facility] ([id number]) [address], [address] [place] [address] #### PINR, [id number] #### [facility] ([id number]) [address] [place] [address] 70342UPN (RBC) [Entitic mass]28.6 iaBdaalg77-51BctIaqknnMethodist Charlton Medical CenterComment on above:Performed By: #### 91890-6, CBCA, HA1C, BMP #### [facility] ([id number]) [address] [place] [address], [address] [place] [address] #### PINR, [id number] #### [facility] ([id number]) [address] [place] [address] 55256IDCR (RBC) [Mass/Vol]32.7 g/fVRczemm98-14VlbIzcmzaMethodist Charlton Medical CenterComment on above:Performed By: #### 14478-7, CBCA, HA1C, BMP #### [facility] ([id number]) [address] [place] [address], [address] [place] [address] #### PINR, [id number] #### [facility] ([id number]) [address] [place] [address] 00577NQE (RBC) [Entitic vol]88 uNWzlzov48-740RidFtbwsi Fremont HospitalComment on above:Performed By: #### 29454-5, CBCA, HA1C, BMP #### [facility] ([id number]) [address] [place] [address], [address] [place] [address] #### PINR, [id number] #### [facility] ([id number]) [address] [place] [address] 53974YQCUOEUDO ABSOLUTE COUNT (10*3/UL) BY AUTOMATED COUNT0.7 10*3/uLNoSalem Regional Medical CenterComment on above:Performed By: #### 83140-3, CBCA, HA1C, BMP #### [facility] ([id number]) [address] [place] [address], [address] [place] [address] #### PINR, 59261-7 #### [facility] ([id number]) [address] [place] [address] 57575DCRKDZMQV RELATIVE PERCENT BY AUTOMATED COUNT13.3 %Normal [facility] Medical CenterComment on above:Performed By: #### 25345-3, CBCA, HA1C, BMP #### [facility] ([id number]) [address] [place] [address], [address] [place] [address] #### PINR, [id number] #### [facility] ([id number]) [address] [place] [address] 97150LKTCNWOPYMR ABSOLUTE COUNT BY AUTOMATED COUNT2.5 10*3/uLNormal [facility] Medical CenterComment on above:Performed By: #### 95666-1, CBCA, HA1C, BMP #### [facility] ([id number]) [address] [facility], [address] [place] [address] #### PINR, [id number] #### [facility] ([id number]) [address] [place] [address] 58097SPDUAZXATDL RELATIVE PERCENT BY AUTOMATED COUNT45.0 %Normal [facility] Medical CenterComment on above:Performed By: #### 13474-3, CBCA, HA1C, BMP #### [facility] ([id number]) [address] [place] [address], [address] [place] [address] #### PINR, 68556-2 #### [facility] ([id number]) [address] [place] [address] 05952Nvhsyvuv mean volume (Bld) [Entitic vol]8.1 fLNormal7-[address] [facility] Medical CenterComment on above:Performed By: #### 53913-4, CBCA, HA1C, BMP #### [facility] ([id number]) [address] [facility], [address] [place] [address] #### PINR, [id number] #### [facility] ([id number]) [address] [place] [address] 29547Jhwnzwtvq (Bld) [#/Vol]278 10*3/fYTmbytm967-373JpqTkjdns Fremont HospitalComment on above:Performed By: #### 34540-2, CBCA, HA1C, BMP #### [facility] ([id number]) [address] [facility], [address] [place] [address] #### PINR, [id number] #### [facility] ([id number]) [address] [place] [address] 03578QKP COUNT3.81 X10E12/LNormal3.8-5.2POhioHealth Dublin Methodist Hospital Comment on above:Performed By: #### 09930-3, CBCA, HA1C, BMP #### [facility] ([id number]) [address] [facility], [address] [place] [address] #### PINR, [id number] #### [facility] ([id number]) [address] [place] [address] 79773HSM (Bld) [#/Vol]5.5 10*3/uLNormal4-11ProMethodist Charlton Medical CenterComment on above:Performed By: #### 61406-7, CBCA, HA1C, BMP #### [facility] ([id number]) [address] [facility], [address] [place] [address] #### PINR, [id number] #### [facility] ([id number]) [address] [place] [address] 22940HPOGRNJTCQQHW METABOLIC PANELon 15-53-2690Xgbfndb [Mass/Vol]3.7 g/dLNormal3.2-5.3POhioHealth Dublin Methodist HospitalComment on above:Performed By: #### 71586-0, CBCA, HA1C, BMP #### [facility] ([id number]) [address] [place] [address], [address] [place] [address] #### PINR, [id number] #### [facility] ([id number]) [address] [place] [address] 88869XOJ [Catalytic activity/Vol]98 U/GBqzggo02-127KbhMlbjvqMethodist Charlton Medical CenterComment on above:Performed By: #### 08129-9, CBCA, HA1C, BMP #### [facility] ([id number]) [address] [place] [address], [address] [place] [address] #### TAWNY, 73912-4 #### [facility] ([id number]) [address] [place] [address] 08290MRF [Catalytic activity/Vol]16 U/LNormal<=31[facility] Medical CenterComment on above:Performed By: #### 00700-5, CBCA, HA1C, BMP #### [facility] ([id number]) [address] [place] [address], [address] [place] [address] #### TAWNY, 28152-0 #### [facility] ([id number]) [address] [place] [address] 86982Seffe gap [Moles/Vol]7 mmol/LNormal5-15ProMethodist Charlton Medical CenterComment on above:Performed By: #### 21172-2, CBCA, HA1C, BMP #### [facility] ([id number]) [address] [place] [address], [address] [place] [address] #### PINR, [id number] #### [facility] ([id number]) [address] [place] [address] 41829BBP [Catalytic activity/Vol]21 U/LNormal<=41Pro[facility] Linn HospitalComment on above:Performed By: #### 47851-1, CBCA, HA1C, BMP #### [facility] ([id number]) [address] [facility], [address] [place] [address] #### PINR, 46710-2 #### [facility] ([id number]) [address] [place] [address] 42651Xxbriwvwk [Mass/Vol]0.4 mg/dLNormal0.3-1.2POhioHealth Dublin Methodist HospitalComment on above:Performed By: #### 21119-9, CBCA, HA1C, BMP #### [facility] ([id number]) [address] [facility], [address] [place] [address] #### TAWNY, 37774-0 #### [facility] ([id number]) [address] [place] [address] 38588Oxqryjz [Mass/Vol]9.7 mg/dLNormal8.5-10.5POhioHealth Dublin Methodist HospitalComment on above:Performed By: #### 66344-1, CBCA, HA1C, BMP #### [facility] ([id number]) [address] [facility], [address] [address] #### TAWNY, 81487-7 #### [facility] ([id number]) [address] [place] [address] 34100Frzjexgu [Moles/Vol]105 mmol/XHhgyfw46-498WutSniktl [facility] Medical CenterComment on above:Performed By: #### 32349-0, CBCA, HA1C, BMP #### [facility] ([id number]) [address] [facility], [address] [place] [address] #### PINR, [id number] #### [facility] ([id number]) [address] [place] [address] 81388SM2 [Moles/Vol]23 mmol/ZEcqgcz37-36YlmFsrevtOhioHealth Dublin Methodist Hospital Comment on above:Performed By: #### 07172-7, CBCA, HA1C, BMP #### [facility] ([id number]) [address], [address] [place] [address] #### TAWNY, 00198-4 #### [facility] ([id number]) [address] [place] [address] 23814Ofnkofodlt [Mass/Vol]0.68 mg/dLNormal0.40-1.00[facility] Medical CenterComment on above:Result Comment: METHOD TRACEABLE TO IDMS STANDARD Performed By: #### 00621-4, CBCA, HA1C, BMP #### [facility] ([id number]) [address] [facility], [address] [place] [address] #### TAWNY, 36570-6 #### [facility] ([id number]) [address] [place] [address] 31405RVRL (CKD-EPI) NON-RACE DEPENDENT>^90Normal>=60[facility] Medical CenterComment on above:Result Comment: eGFR not reported due to non- numeric value for Creatinine. Reported eGFR is based on the CKD-EPI 2020 equation that does not use a race coefficient.Performed By: #### 91378-3, CBCA, HA1C, BMP #### [facility] ([id number]) [address], [address] [place] [address] #### PINR, 07207-6 #### [facility] ([id number]) [address] [place] [address] 35208Ibobcal [Mass/Vol]273 mg/cBXljh20-46DzkLmekphMercy Health St. [facility] Center Comment on above:Performed By: #### 55749-2, CBCA, HA1C, BMP #### [facility] ([id number]) [address] [facility], [address] [place] [address] #### PINR, 61008-1 #### [facility] ([id number]) [address] [place] [address] 11291Bfjqjvwgi [Moles/Vol]4.5 mmol/LNormal3.5-5.0ProMethodist Charlton Medical CenterComment on above:Performed By: #### 41790-8, CBCA, HA1C, BMP #### [facility] ([id number]) [address] [place] [address], [address] [place] [address] #### PINR, [id number] #### [facility] ([id number]) [address] [place] [address] 53011Ymuzcco [Mass/Vol]7.4 g/dLNormal6.0-8.0ProMethodist Charlton Medical CenterComment on above:Performed By: #### 04995-8, CBCA, HA1C, BMP #### [facility] ([id number]) [address] [place] [address], [address] [place] [address] #### PINR, 83044-0 #### [facility] ([id number]) [address] [place] [address] 28833Zprtoh [Moles/Vol]135 mmol/TDydgru094-015CvkXjtmmd [facility]remont HospitalComment on above:Performed By: #### 85774-5, CBCA, HA1C, BMP #### [facility] ([id number]) [address] [place] [address], [address] [place] [address] #### PINR, 13469-5 #### [facility] ([id number]) [address] [place] [address] 91068Ulyg nitrogen [Mass/Vol]22 mg/dLNormal5-27ProMethodist Charlton Medical CenterComment on above:Performed By: #### 63597-4, CBCA, HA1C, BMP #### [facility] ([id number]) [address] [place] [address], [address] [place] [address] #### PINR, 52027-9 #### [facility] ([id number]) [address] [facility], FIRST [address]LO[address] [place], [place] [address] EXTRA URINEon 98-61-1466LY EXTRA URINEERU ER EXTRA URINE CancelledNormalMercy Health St. Vincent Medical CenterComment on above:Order Comment: A extra urine specimen no testing is neededSARS/FLU A+B/RSV BY NAAT/MOLECULAR (M4RT COLLECTION TUBE)on 56-79-0913GEJT/FLU A+B/RSV BY NAAT/MOLECULAR (M4RT COLLECTION TUBE)FLU A PCR Negative FLU B PCR Negative RSV BY PCR Negative SARS COV 2 BY PCR Not DetectedNormalNot DetectedMercy Health St. Vincent Medical CenterComment on above:Order Comment: The Xpert Xpress SARS-CoV-2/Flu/RSV Plus test is [...] operators who are performing tests using either [employer] or [employer] and is limited to laboratories that meet [...] by this test are generally detectable in upperrespiratory samples during the acute phase of infection. [...] preclude SARS-CoV-2, influenza A, influenza B and RSVinfection and should not be used as the sole basis for treatment or other patient management decisions. Negative results must be combined with clinical observations, patient history and epidemiological information. An Invalid result may occur with specimen-associated inhibition unable to be resolved with specimen repeat.Fact Sheet for Healthcare Providers:https://www.fda.gov/media/937675/downloadFact Sheet for Patients:https://www.fda.gov/media/096510/downloadPerformed By: #### 45087-2, CBCA, HA1C, BMP #### [facility] ([id number]) [address] [place] [address], [address] [place] [address] #### PINJeison, 36924-8 #### [facility] ([id number]) [address] [place] [address] 21805NPLVDID PROFILE INCLUDES TSH FT4on 03-89-7476Fxjb T4 [Mass/Vol] 0.90 ng/dLNormal0.61-1.60ProMethodist Charlton Medical CenterComment on above:Performed By: #### 90540-0, CBCA, HA1C, BMP #### [facility] ([id number]) [address] [place] [address], [address] [address] #### TAWNY, 89084-2 #### [facility] ([id number]) [address] [place] [address] 03060BON6.91 uIU/mLNormal0.49-4.67ProMethodist Charlton Medical CenterComment on above:Performed By: #### 55979-6, CBCA, HA1C, BMP #### [facility] ([id number]) [address] [place] [address], [address] [place] [address] #### PINR, 77618-8 #### [facility] ([id number]) [address] [place] [address] 86976Pflwmwoyh Clinical Summaryon [id number] Clinical Summary[address] [address] [phone] [address] [phone] Clinical Summary Person Information Name: Mari Jamison Age: 74 Years : 1950 Sex: Female PCP: Marital Status: PCP: Race: White Ethnicity: Not or Language: Cambodian Visit Id: Visit Reason: Speciality: Acuity: Enc Type: Observation Med Service: Medicine-General Arrival: 12/29/2024 06:01:58 Discharge: Dispo Type: Address: [address] [place] [id number] Preferred Communication Mode: Verbal Preferred Language: Cambodian Discharge Diagnosis: S/P total right hip arthroplasty Discharged To: Home with family care Mode of Discharge Transportation: Home Treatments: Devices/Equipment: Professional Skilled Services: Special Services and Community Resources: Discharge Orders: Tube Feeding and Supplements Home Health Consult and Ambulatory Referrals Treatment and Wound Care Coughing/Deep Breathing 12/29/24 14:32:00 EDT, q1hr, Nursing to encourage Q1 hour while awake Insulin Safety [place] 12/29/24 18:28:00 EDT, PRN, 1 each insulin [...] 80 bpm Heart Rate: 92 bpm Respiratory Rate (more content not included)...NormalSelect Medical Specialty [facility] Glucose Randomon 66-30-4686Rprdiok [Mass/Vol]280 mg/fCAkjf35-46 [facility] CenterComment on above:Performed By: #### EGFR #### [address] [address]Ulunopt [Mass/Vol]183 mg/aZZjga65-52NhatscisyMetrohealth Main Campus Medical CenterComment on above:Performed By: #### EGFR #### [address] [address].eGFRon 05-48-1989HAE/1.73 sq M.predicted MDRD (S/P/Bld) [Vol rate/Area]mL/min/{1.73_m2}Normal>=60[facility] Medical CenterComhenry ford cottage hospital on above:Result Comment: [facility] have implemented the eGFR calculation approach that does not havea coefficient for race and that conforms to the NKF- ASN Task Force Recommendations. Stages of Chronic Kidney [...] maximum of SCr/? or 1 Age = yearsPerformed By: #### EGFR #### [address] [address] Metabolic Profileon 18-40-8592Uunbs gap [Moles/Vol]8 mmol/LNormal4-12[facility] CenterComment on above:Performed By: #### EGFR #### [address] [address]Jphdswo [Mass/Vol]8.4 mg/dLLow8.5-10.3BJoint Township District Memorial HospitalComment on above:Performed By: #### EGFR #### [address] [address]Bsjihaxe [Moles/Vol]104 mmol/LUyafee67-002RrnizajpkMetrohealth Main Campus Medical CenterComment on above:Performed By: #### EGFR #### [address] [address]CS7 [Moles/Vol]22 mmol/EMtyfut68-13SevsbixwcMetrohealth Main Campus Medical CenterComment on above:Performed By: #### EGFR #### [address] [address]Zabbojuygg [Mass/Vol]0.71 mg/dLNormal0.44-1.03[facility] Campus Medical CenterComment on above:Performed By: #### EGFR #### [address] [address]Ggvjtih [Mass/Vol]366 mg/fKJclo91-73LjjxvcirfMetrohealth Main Campus Medical CenterComment on above:Performed By: #### EGFR #### [address] [address]Qjcvskmkf [Moles/Vol]3.8 mmol/LNormal3.4-4.8BJoint Township District Memorial HospitalComment on above:Performed By: #### EGFR #### [address] [address]Zvydfb [Moles/Vol]134 mmol/YMwhzdl690-694AvrztqxzbMetrohealth Main Campus Medical CenterComment on above:Performed By: #### EGFR #### [address] [address]Btxm nitrogen [Mass/Vol]26 mg/dLNormal8-26[facility] Medical CenterComment on above:Performed By: #### EGFR #### [address] [address]Rczk nitrogen/Creatinine [Mass ratio]36.6 mg/llLlkz10.0-20.0 [facility] CenterComment on above:Performed By: #### EGFR #### [address] [address]Rga & Hcton 78-97-8547Ykdgqnnjvt (Bld) [Volume fraction]26.8 % Low36.0-46.0[facility] Medical CenterComment on above:Performed By: #### HGBHCT #### [address] [address]Msrfkfnvqv (Bld) [Mass/Vol]8.9 g/dLLow12.0-16.0[facility] Medical CenterComment on above:Performed By: #### HGBHCT #### [address] [address]Qcf A1con 07-38-8501Veeljqj [Mass/Vol]174 mg/kIYpil97-229 [facility] CenterComment on above:Result Comment: Mathematical Calc approx. The mean gluc equivalency of Q8wKtfuyxabw By: #### EGFR #### [address] [address]Gpc A1c7.7 % Q5pQjat6.0-5.6BJoint Township District Memorial Hospital Comment on above:Result Comment: Reference Range: 4.0 - 5.6 % Normal 5.7 - 6.4 % Pre-Diabetes > 6.5 % DiabetesPerformed By: #### EGFR #### [address] [address]PWO Glucose Randomon 35-22-9710Kzfvrts [Mass/Vol]297 mg/dLSistersville General Hospital 70-99[facility] Medical CenterComment on above:Performed By: #### EGFR #### [address] [address]Lccoahq [Mass/Vol]243 mg/iWZwlc35-97Jijixjixa[address] SystemComment on above:Performed By: #### HGBHCT #### [address] [address]Qdvsngl [Mass/Vol]294 mg/pSIwgn30-32Mrdxnzchy78 Miller StreetComment on above:Performed By: #### EGFR #### [address] [address]Vvierpv [Mass/Vol]336 mg/fSGgfo83-96Gfokzhmjj78 Miller StreetComment on above:Performed By: #### EGFR #### [address] [address]Qbwvoke [Mass/Vol]272 mg/tRLlym27-22Cjtgdktrt78 Miller StreetComment on above:Performed By: #### EGFR #### [address] [address]Ufnonzu [Mass/Vol]330 mg/lBJdlp19-75Ljibhzgmy78 Miller StreetComment on above:Performed By: #### HGBHCT #### [address] [address]Loezguf [Mass/Vol]362 mg/pWDdzv14-83Zodxmktgq78 Miller StreetComment on above:Performed By: #### HGBHCT #### [address] [address]Ibhesufpu Reporton 61-12-2803Fuqfatgnt ReportIndication for Surgery Degenerative arthritis right hip Preoperative Diagnosis Degenerative arthritis right hip Postoperative Diagnosis Degenerative arthritis right hip Operation Arthroplasty Hip Total Replacement - Anterio-Lateral, Right Parveen 54 mm Continuum cup 36 inner diameter lipped liner Fit more before femoral stem 36 mm standard neck versus head Surgeon(s) Juan Casey MD (Surgeon - Primary) Sales Support Coordinator Benji Steve (Labor Mediator) Anesthesia General Chastity Harris (Provider) Estimated Blood Loss 200.0 mL Urine Output 200.0 mL Findings As above Specimen(s) None Complications None Technique Patient was brought in the operative room placed in supine position on the operating table. Generalacetic was administered. Patient was placed into a left lateral decubitus position the right hip girdle was prepped with ChloraPrep draped in sterile fashion. Patient was noted to be morbidly obese. She had a very thick subcu layer. Dissection was taken down through the subcu layer. Deep fascia wasidentified and split longitudinally. Hip abductor was identified and dissection was taken down along the inferior belly of this. Capsule was identified and incised. The head and neck were then exposed. The neck was then osteotomized at the base of the head and a second cut was made at the base of th e neck the head and neck fragments were [...] fit more before femoral stem was inserted downthe canal cancellous bone graft was placed on [...] was then closed with one #1 Ethibond pkeqll-nh-ayuju sutures. The subcu was closed in 3 layers with #1 Vicryl 2-0 Vicryl and 2-0 Vicryl followed by 3-0 Monocryl subcuticular stitch dressed with Steri-Strips fluffs ABD and a Tegaderm. Anesthetic was discontinued patient was transferred to recoveryin a stable condition. Tourniquet Time NA Sponge/Needle Count Correct Fluid Count 250 mg of albumin 1400 cc cc of crystalloids Catheters, Drains, Tubes Device: Loaiza Tray 16FR Latex Free [id number] Electronically signed by Juan Casey MD 12/29/24 13:32 EDTNormMercy Health [facility] POC Glucose Randomon 63-29-0329Bsfodcf [Mass/Vol]379 mg/nWYtxu39-20Jlvgrpczl89 Johnson StreetComment on above:Performed By: #### HGBHCT #### [address] [address]Vlvvbww [Mass/Vol]300 mg/sZHiim59-52Mkaevofic89 Johnson StreetComment on above:Performed By: #### CD:[id number] #### [address] [address]Vsqyhvg [Mass/Vol]175 mg/xKDsza19-45Uslbuvbzr89 Johnson StreetComment on above:Performed By: #### EGFR #### [address] [address]Gzdbqhk [Mass/Vol]162 mg/zRSqnz48-37Eixkscmgy89 Johnson StreetComment on above:Performed By: #### HGBHCT #### [address], [place] [address]Kcrdicd [Mass/Vol]161 mg/zHTgrb19-08IljqyfiaoMetrohealth Main Campus Medical CenterComment on above:Performed By: #### HGBHCT #### [address] [address]Cjwctqa [Mass/Vol]174 mg/rVVxwm41-63XdyjkjqvvMetrohealth Main Campus Medical CenterComment on above:Performed By: #### EGFR #### [address], [place] [address]Vegxrtw [Mass/Vol]210 mg/jXLyrq23-23PkrbqrcpwMetrohealth Main Campus Medical CenterComment on above:Performed By: #### HGBHCT #### [address], [place] [address]ME OR Hip Righton 66-88-3693UU OR Hip Right This report was not created by a radiologist, physician, or advanced practice provider. The details of this surgical case can be found within the surgical operative note. The surgical Operative note is located within the patient's chart. Final Signed by: Milena Carson Signed (Electronic Signature): 12/29/2024 3:18 pm Transcribed DT/TM: 12/29/2024 3:18 (If Report Is Signed, Electronically Signed in Other Vendor System)Normal [facility].eGFRon 64-34-9238SYP/1.73 sq M.predicted MDRD (S/P/Bld) [Vol rate/Area]mL/min/{1.73_m2}Normal>=60[facility] Medical CenterComment on above:Result Comment: [facility] have implemented the eGFR calculation approach that does not havea coefficient for race and that conforms to [...] maximum of SCr/? or 1 Age = yearsPerformed By: #### CBC #### [facility] [address] [place] [address]AIB/Rhon 46-19-9596IVC/Rhsurgery date 12/29/2024 ABO/Rh: O NEGNoWright-Patterson Medical CenterComment on above:Performed By: #### ABORH #### [facility] (DEFAULT) [address] [place] [address] [facility] (UNKNOWN) [address] [place] [address]JWYE Autoon 15-62-1922XRYI AutoNegativeNoWright-Patterson Medical CenterComment on above:Performed By: #### ASA #### [facility] (UNKNOWN) [address] [place] [address]TAB w/ Diffon 76-79-6111Ezudtxehiyr distribution width (RBC) [Ratio]13.8 %Jggnzj35.6-14.8BJoint Township District Memorial HospitalComment on above: Performed By: #### CBC #### [facility] [address] [place] [address]Vqccuiouwi (Bld) [Volume fraction]37.9 %Mexbft85.0-46.0 [facility] Medical CenterComment on above:Performed By: #### CBC #### [address] [address]Rflxymlkhs (Bld) [Mass/Vol]12.8 g/hDAhucvo50.0-16.0[facility] Medical CenterComment on above:Performed By: #### CBC #### [address] [address]AZR (RBC) [Entitic mass]30.0 dmNtehhu02.0-35.0[facility] Medical CenterComment on above:Performed By: #### CBC #### [address] [address]FSOD83.8 %Tprihh57.0-37.0[facility] Medical CenterComment on above:Performed By: #### CBC #### [address] [address]WCG (RBC) [Entitic vol]88.9 tAYbbplz19.0-100.0[facility] Medical CenterComment on above:Performed By: #### CBC #### [address] [address]Ftfdlcsb767 x10*3/qoUXzzuby176-945AvkengrwjMetrohealth Main Campus Medical CenterComment on above:Performed By: #### CBC #### [address] [address]Kfqabldq mean volume (Bld) [Entitic vol]8.1 fLNormal6.7-10.6 [facility] Medical CenterComment on above:Performed By: #### CBC #### [address] [address]CMF1.27 x10*6/mcLNormal3.80-5.20[facility] Comment on above:Performed By: #### CBC #### [address] [address]AEQ9.3 x10*3/mcLNormal4.5-11.0[facility] Comment on above:Performed By: #### CBC #### [address] [address]HTKak 40-76-7217Rgvmxpm [Mass/Vol]3.8 g/dLNormal3.2-4.9 [facility] CenterComment on above:Performed By: #### COMP #### [address], [place] [address]Dkkduip/Globulin [Mass ratio]1.1 {ratio}Normal1.1-2.2BJoint Township District Memorial HospitalComment on above:Performed By: #### COMP #### [address], [place] [address]Tfg Phos51 IU/JCqbkbt95-62PiemimkksMetrohealth Main Campus Medical CenterComment on above:Performed By: #### COMP #### [address], [place] [address]XJE [Catalytic activity/Vol]17 U/YKxgktr99-06NugplzcvjMetrohealth Main Campus Medical CenterComment on above:Performed By: #### COMP #### [address], [place] [address]Pxsqe gap [Moles/Vol]10 mmol/LNormal4-12[facility] Medical CenterComment on above:Performed By: #### COMP #### [address], [place] [address]FEX [Catalytic activity/Vol]22 U/RNwxltq66-65OwaehyjoiMetrohealth Main Campus Medical CenterComment on above:Performed By: #### COMP #### [address], [place] [address]Xkfw Total0.7 mg/dLNormal0.3-1.2BJoint Township District Memorial Hospital Comment on above:Performed By: #### COMP #### [address], [place] [address]Abpxxux [Mass/Vol]9.9 mg/dLNormal8.5-10.3BJoint Township District Memorial HospitalComment on above:Performed By: #### COMP #### [address], [place] [address]Kgbtdoys [Moles/Vol]99 mmol/FXshmed13-571GjwexezzvMetrohealth Main Campus Medical CenterComment on above:Performed By: #### COMP #### [address], [place] [address]TA4 [Moles/Vol]28 mmol/USerzij70-14KranzscjmMetrohealth Main Campus Medical CenterComment on above:Performed By: #### COMP #### [address] [address]Vcfztjzhkz [Mass/Vol]0.82 mg/dLNormal0.44-1.03[facility] Medical CenterComment on above:Performed By: #### COMP #### [address] [address]Fufquvt [Mass/Vol]292 mg/mSChkw09-82MawhmgluaMetrohealth Main Campus Medical CenterComment on above:Performed By: #### COMP #### [address] [address]Txbzebxgc [Moles/Vol]4.2 mmol/LNormal3.4-4.8BJoint Township District Memorial HospitalComment on above:Performed By: #### COMP #### [address] [address]Jzidvax [Mass/Vol]7.4 g/dLNormal6.5-8.1BJoint Township District Memorial HospitalComment on above:Performed By: #### COMP #### [address] [address]Rcoqqn [Moles/Vol]137 mmol/GXokycc893-504PkqtqjjpbMetrohealth Main Campus Medical CenterComment on above:Performed By: #### COMP #### [address] [address]Ddwn nitrogen [Mass/Vol]23 mg/dLNormal8-26[facility] Medical CenterComment on above:Performed By: #### COMP #### [address] [address]Scuv nitrogen/Creatinine [Mass ratio]28.0 mg/elBxgy38.0-20.0 [facility] CenterComment on above:Performed By: #### COMP #### [address] [address]Zflh Autoon 32-96-5064Cexv Absolute0.0 x10*3/mcLNormal0.0-0.2 [facility] CenterComment on above:Performed By: #### .Automated Diff #### [address] [address]Alniawquh/100 WBC (Bld)0.8 %Normal0.0-1.5BJoint Township District Memorial HospitalComment on above:Performed By: #### .Automated Diff #### [address] [address]Wgd Absolute0.6 x10*3/mcLHigh0.0-0.4BSt. John of God Hospital SystemComment on above:Performed By: #### .Automated Diff #### [address] [address]Zhchvxjqaao/100 WBC (Bld)10.4 %High0.0-5.4BJoint Township District Memorial HospitalComment on above:Performed By: #### .Automated Diff #### [address] [address]Wuaqm Absolute1.6 x10*3/mcLNormal1.0-4.8BSt. John of God Hospital SystemComment on above:Performed By: #### .Automated Diff #### [address] [address]Ourkczramdb/100 WBC (Bld)30.1 %Eswewu46.2-40.8BJoint Township District Memorial HospitalComment on above:Performed By: #### .Automated Diff #### [address] [address]Swsm Absolute0.6 x10*3/mcLNormal0.1-1.1BSt. John of God Hospital SystemComment on above:Performed By: #### .Automated Diff #### [address] [address]Ukjybqads/100 WBC (Bld)10.5 %Normal3.7-11.9BJoint Township District Memorial HospitalComment on above:Performed By: #### .Automated Diff #### [address] [address]Xrgmbv Absolute2.6 x10*3/mcLNormal1.8-7.7BSt. John of God Hospital SystemComment on above:Performed By: #### .Automated Diff #### [facility] [address] [place], [place] [address]Lydyhn Auto48.2 %Myaqgt83.2-70.8BJoint Township District Memorial Hospital Comment on above:Performed By: #### .Automated Diff #### [facility] [address] [place], [place] [address]ZP CHEST 2 VWSon 14-54-4141YD CHEST 2 VWSXR CHEST 2 VWS CHEST 2 VIEW COMPARISON: 09/19/2024 HISTORY: cough congestion. . FINDINGS: Frontal and lateral chest radiographs obtained. The cardiomediastinal silhouette and pulmonary vasculature are within normal limits. There is no pneumothorax, focal consolidation, or pleural effusion. IMPRESSION: No evidence for an acute cardiopulmonary process. Finalized by Zana Jensen MD on 12/14/2024 4:[address] Vincent Medical CenterXR KNEE RT 3 VWSon 73-77-6360PY KNEE RT 3 VWSXR KNEE RT 3 VWS EXAM: XR KNEE [...] by Eladio Hardy MD on 11/29/2024 6:[address] Vincent Medical Center Lipid 1996 panelon 83-38-4785Poncyqzrkey [Mass/Vol]209 mg/dITgur817-554XfjMxunlfMethodist Charlton Medical CenterComment on above:Performed By: #### 62218-9, CBCA, HA1C, BMP #### [facility] ([id number]) [address], [address] [place] [address] #### PINR, [id number] #### [facility] ([id number]) [address] [facility] [address] [place], [place] [address]Ufaqfvzvaiu in HDL [Mass/Vol]48 mg/dLNormal>39ProMethodist Charlton Medical CenterComment on above:Result Comment: HDL <40 mg/dL - High Risk HDL > or = 40mg/dL- Desirable HDL >60 mg/dL - Negative Risk Performed By: #### 74970-1, CBCA, HA1C, BMP #### [facility] ([id number]) [address] [place] [address], [address] [place] [address] #### TAWNY, 98569-9 #### [facility] ([id number]) [address] [place] [address]Vdugqaypvpd in LDL [Mass/Vol]132 mg/dLHigh<130ProMethodist Charlton Medical CenterComment on above:Result Comment: LDL <100 mg/dL - Desirable LDL >160 mg/dL - High Risk Performed By: #### 14996-5, CBCA, HA1C, BMP #### [facility] ([id number]) [address] [place] [address], [address] [place] [address] #### TAWNY 29055-1 #### [facility] ([id number]) [address] [place] [address]Qoxxdokpyjy in VLDL [Mass/Vol]29 mg/dLNormal0-30ProMethodist Charlton Medical CenterComment on above:Performed By: #### 85910-0, CBCA, HA1C, BMP #### [facility] ([id number]) [address] [place] [address], [address] [place] [address] #### TAWNY, 29636-6 #### [facility] ([id number]) [address] [place] [address]CEIURZQBVEF:HDL4.6Nttqhh7.0-5.0[facility] Comment on above:Performed By: #### 07494-3, CBCA, HA1C, BMP #### [facility] ([id number]) [address], [address] [place] [address] #### TAWNY 88119-3 #### [facility] ([id number]) [address] [place] [address]Bqcmimkeehmk [Mass/Vol]143 mg/oHIdiaie80-811XzwRwfryh Fremont HospitalComment on above:Performed By: #### 27175-8, CBCA, HA1C, BMP #### [facility] ([id number]) [address], [address] [place] [address] #### TAWNY 60101-5 #### [facility] ([id number]) [address] [place] [address]NLW AND AUTO DIFFon 54-91-2598SQBWIPQV BASOPHIL0.0 X10E9/L Normal0.0-0.2POhioHealth Dublin Methodist HospitalComment on above:Performed By: #### 71146-3, CBCA, HA1C, BMP #### [facility] ([id number]) [address], [address] [place] [address] #### TAWNY, 69203-2 #### [facility] ([id number]) [address] [place] [address] 29256SSOLSGXG NEUTROPHIL2.5 X10E9/LNormal1.5-6.6ProMethodist Charlton Medical CenterComment on above:Performed By: #### 65591-7, CBCA, HA1C, BMP #### [facility] ([id number]) [address], [address] [place] [address] #### TAWNY, 75704-3 #### [facility] ([id number]) [address] [place] [address]Mrezqxsdw/100 WBC (Bld)0.9 %[facility] Comment on above:Performed By: #### 68963-5, CBCA, HA1C, BMP #### [facility] ([id number]) [address] [address], [address] [place] [address] #### PINR, [id number] #### [facility] ([id number]) [address] [place] [address] 17367Bbuwswhxvmg (Bld) [#/Vol]0.2 10*3/uLNormal0.0-0.4Mercy Health St. Vincent Medical CenterComment on above:Performed By: #### 04404-6, CBCA, HA1C, BMP #### [facility] ([id number]) [address] [facility] [address], [address] [place] [address] #### PINR, [id number] #### [facility] ([id number]) [address] [place] [address] 94[address]Zvxtkplgqcb/100 WBC (Bld)3.7 %[facility] Comment on above:Performed By: #### 20316-9, CBCA, HA1C, BMP #### [facility] ([id number]) [address] [facility] [facility], [address] [place] [address] #### PINR, [id number] #### [facility] ([id number]) [address] [place] [address] 48697Vrwfejiibnm distribution width (RBC) [Ratio]14.6 %Normal 11.5-15.0Mercy Health St. Vincent Medical CenterComment on above:Performed By: #### 75874-4, CBCA, HA1C, BMP #### [facility] ([id number]) [address] [facility] [facility] [address], [address] [place] [address] #### PINR, [id number] #### [facility] ([id number]) [address] [place] [address] 96[address]Nfdvobsdgm (Bld) [Volume fraction]36.2 %Goecnd78-70JkeNzjnlpMethodist Charlton Medical CenterComment on above:Performed By: #### 65745-5, CBCA, HA1C, BMP #### [facility] ([id number]) [address] [place] [address], [address] [place] [address] #### PINR, [id number] #### [facility] ([id number]) [address] [place] [address]Dzvnntwzuk (Bld) [Mass/Vol]12.0 g/hSXwxiuh69.7-15.5POhioHealth Dublin Methodist HospitalComment on above:Performed By: #### 30901-4, CBCA, HA1C, BMP #### [facility] ([id number]) [address] [place] [address], [address] [place] [address] #### PINR, [id number] #### [facility] ([id number]) [address] [place] [address]Btiqxenzzqe (Bld) [#/Vol]1.9 10*3/uLNormal1.0-3.5POhioHealth Dublin Methodist HospitalComment on above:Performed By: #### 47326-8, CBCA, HA1C, BMP #### [facility] ([id number]) [address] [place] [address], [address] [place] [address] #### PINR, [id number] #### [facility] ([id number]) [address] [place] [address]Sngjsdtzelv/100 WBC (Bld)36.4 %NormalMercy Health St. [facility] Medical Center Comment on above:Performed By: #### 30540-8, CBCA, HA1C, BMP #### [facility] ([id number]) [address], [address] [place] [address] #### TAWNY, 49262-7 #### [facility] ([id number]) [address] [place] [address] 04846XPY (RBC) [Entitic mass]29.6 hjOfmsab77-74GrxHhjidvMethodist Charlton Medical CenterComment on above:Performed By: #### 28827-7, CBCA, HA1C, BMP #### [facility] ([id number]) [address] [facility] [facility], [address] [place] [address] #### TAWNY, 96643-9 #### [facility] ([id number]) [address] [place] [address]PMMO (RBC) [Mass/Vol]33.2 g/dXHitplt62-14WqbLhkyevMethodist Charlton Medical CenterComment on above:Performed By: #### 98760-2, CBCA, HA1C, BMP #### [facility] ([id number]) [address] [facility] [address], [address] [place] [address] #### TAWNY, 60920-7 #### [facility] ([id number]) [address] [place] [address]BQV (RBC) [Entitic vol]89 fGTdzzjk48-591BzmYwtqas Fremont HospitalComment on above:Performed By: #### 65462-3, CBCA, HA1C, BMP #### [facility] ([id number]) [address] [address], [address] [place] [address] #### TAWNY, 21382-5 #### [facility] ([id number]) [address] [place] [address]Jfqxikuig (Bld) [#/Vol]0.6 10*3/uLNormal0-0.9ProMethodist Charlton Medical CenterComment on above:Performed By: #### 05574-4, CBCA, HA1C, BMP #### [facility] ([id number]) [address] [address], [address] [place] [address] #### PINR, [id number] #### [facility] ([id number]) [address] [place] [address] 27186Ocmrvjxwg/100 WBC (Bld)11.0 %[facility] Comment on above:Performed By: #### 57452-2, CBCA, HA1C, BMP #### [facility] ([id number]) [address] [address], [address] [place] [address] #### TAWNY, 14951-2 #### [facility] ([id number]) [address] [place] [address] 84286Vqktcbahwxj/100 WBC (Bld)48.0 %[facility] Comment on above:Performed By: #### 98582-0, CBCA, HA1C, BMP #### [facility] ([id number]) [address] [place] [address], [address] [place] [address] #### TAWNY, 51599-1 #### [facility] ([id number]) [address] [place] [address]Ykcxalwe mean volume (Bld) [Entitic vol]8.4 fLNormal7-12 [facility] Medical CenterComment on above:Performed By: #### 57106-1, CBCA, HA1C, BMP #### [facility] ([id number]) [address] [place] [address], [address] [place] [address] #### PINR, [id number] #### [facility] ([id number]) [address] [place] [address] [id number] (Bld) [#/Vol]261 10*3/yEVtfwdr111-872PfrRoreajMercy Health St. Vincent Medical CenterComment on above:Performed By: #### 39515-0, CBCA, HA1C, BMP #### [facility] ([id number]) [address], [address] [place] [address] #### PINR, [id number] #### [facility] ([id number]) [address] [place] [address] [id number] COUNT4.06 X10E12/LNormal3.80-5.20[facility] Comment on above:Performed By: #### 92353-5, CBCA, HA1C, BMP #### [facility] ([id number]) [address] [facility], [address] [place] [address] #### TAWNY, 68073-0 #### [facility] ([id number]) [address] [place] [address] [phone] (Bld) [#/Vol]5.2 10*3/uLNormal4.0-11.0ProMethod[facility] Medical CenterComment on above:Performed By: #### 99070-6, CBCA, HA1C, BMP #### [facility] ([id number]) [address] [facility], [address] [place] [address] #### PINR, [id number] #### [facility] ([id number]) [address] [place] [address] [id number] METABOLIC PANELon 72-01-4822Rzknpsd [Mass/Vol]3.8 g/dLNormal3.2-5.3[facility] CenterComment on above:Performed By: #### 00434-0, CBCA, HA1C, BMP #### [facility] ([id number]) [address], [address] [place] [address] #### PINR, [id number] #### [facility] ([id number]) [address] [place], [place] [address]EGP [Catalytic activity/Vol]58 U/SNfbwlh33-998HrbFyfhwwMethodist Charlton Medical CenterComment on above:Performed By: #### 90980-2, CBCA, HA1C, BMP #### [facility] ([id number]) [address], [address] [place] [address] #### TAWNY 74898-8 #### [facility] ([id number]) [address] [place] [address] 15728TCS [Catalytic activity/Vol]23 U/LNormal0-31ProMedMount Zion campusComment on above:Result Comment: SPECIMEN HEMOLYZED, RESULTS INCREASED Performed By: #### 97945-4, CBCA, HA1C, BMP #### [facility] ([id number]) [address] [place] [address] #### TAWNY 65667-7 #### [facility] ([id number]) [address] [place] [address] 23561Wlwcw gap [Moles/Vol]8 mmol/LNormal5-15ProMethodist Charlton Medical CenterComment on above:Performed By: #### 95433-4, CBCA, HA1C, BMP #### [facility] ([id number]) [address], [address] [place] [address] #### TAWNY 73576-6 #### [facility] ([id number]) [address] [place] [address] [id number] [Catalytic activity/Vol]34 U/LNormal0-41[facility] St. Vincent Medical CenterComment on above:Result Comment: SPECIMEN HEMOLYZED, RESULTS INCREASED Performed By: #### 39507-7, CBCA, HA1C, BMP #### [facility] ([id number]) [address], [address] [place] [address] #### TAWNY 91062-0 #### [facility] ([id number]) [address] [place] [address] 45324Arqvsxsqc [Mass/Vol]1.3 mg/dLHigh0.3-1.2POhioHealth Dublin Methodist HospitalComment on above:Result Comment: RESULTS QUESTIONABLE DUE TO HEMOLYSIS Performed By: #### 06850-0, CBCA, HA1C, BMP #### [facility] ([id number]) [address] [place] [address], [address] [place] [address] #### PINR, [id number] #### [facility] ([id number]) [address] [place] [address] 42715Lyuogrd [Mass/Vol]9.3 mg/dLNormal8.5-10.5POhioHealth Dublin Methodist HospitalComment on above:Performed By: #### 52066-6, CBCA, HA1C, BMP #### [facility] ([id number]) [address] [place] [address], [address] [place] [address] #### PINR, [id number] #### [facility] ([id number]) [address] [place] [address] 40339Pjwxixdx [Moles/Vol]101 mmol/KHzhyfw52-604PimOrkrax [facility] Medical CenterComment on above:Performed By: #### 68235-1, CBCA, HA1C, BMP #### [facility] ([id number]) [address] [place] [address], [address] [place] [address] #### PINR, [id number] #### [facility] ([id number]) [address] [place] [address] [id number] [Moles/Vol]26 mmol/XOwbzgd48-27KgbEiiolbOhioHealth Dublin Methodist Hospital Comment on above:Performed By: #### 02102-5, CBCA, HA1C, BMP #### [facility] ([id number]) [address] [place] [address], [address] [place] [address] #### PINR, [id number] #### [facility] ([id number]) [address] [place] [address] 63836Cguojuoelq [Mass/Vol]0.65 mg/dLNormal0.40-1.00Mer[facility] Health St. Vincent Medical CenterComment on above:Result Comment: METHOD TRACEABLE TO IDMS STANDARD Performed By: #### 08854-1, CBCA, HA1C, BMP #### [facility] ([id number]) [address], [address] [place] [address] #### PINR, [id number] #### [facility] ([id number]) [address] [place] [address] 76398qFIY (CKD-EPI) NON-RACE DEPENDENT>90Normal>59ProMethodist Charlton Medical CenterComment on above:Result Comment: Reported eGFR is based on the CKD-EPI 2020 equation that does not use a race coefficient.Performed By: #### 46668-3, CBCA, HA1C, BMP #### [facility] ([id number]) [address] [address], [address] [place] [address] #### TAWNY, 71242-7 #### [facility] ([id number]) [address] [place] [address] 85659Wpuusah [Mass/Vol]190 mg/hYBzmv45-64SyfRxxgeoMethodist Charlton Medical Center Comment on above:Performed By: #### 46016-0, CBCA, HA1C, BMP #### [facility] ([id number]) [address] [address], [address] [place] [address] #### PINR, [id number] #### [facility] ([id number]) [address] [place] [address] 16717Cipxoglwv [Moles/Vol]4.8 mmol/LNormal3.5-5.0ProMethodist Charlton Medical CenterComment on above:Result Comment: SPECIMEN HEMOLYZED, RESULTS INCREASED Performed By: #### 36538-6, CBCA, HA1C, BMP #### [facility] ([id number]) [address] [place] [address], [address] [place] [address] #### PINR, [id number] #### [facility] ([id number]) [address] [place] [address] 41630Zlvgxmn [Mass/Vol]7.1 g/dLNormal6.0-8.0ProMethodist Charlton Medical CenterComment on above:Performed By: #### 83408-4, CBCA, HA1C, BMP #### [facility] ([id number]) [address] [place] [address], [address] [place] [address] #### TAWNY 37779-5 #### [facility] ([id number]) [address] [place] [address] 91989Bdlwon [Moles/Vol]135 mmol/HKwexiw381-470RetXxtvqh [facility]remont HospitalComment on above:Performed By: #### 16812-2, CBCA, HA1C, BMP #### [facility] ([id number]) [address] [place] [address], [address] [address] #### PINJeison, [id number] #### [facility] ([id number]) [address] [place] [address] 84964Zkgj nitrogen [Mass/Vol]21 mg/dLNormal5-27ProMethodist Charlton Medical CenterComment on above:Performed By: #### 49269-6, CBCA, HA1C, BMP #### [facility] ([id number]) [address] [place] [address], [address] [place] [address] #### PINR, [id number] #### [facility] ([id number]) [address] [place] [address] 07736DL CTA CHESTon 90-31-0312DZ CTA CHESTCT CTA CHEST STUDY: CT angiography of the [...] by Thomas Galan MD on 10/30/2024 12:39 PMNormalProMethodist Charlton Medical CenterNatriuretic peptide B [Mass/Vol]on 53-10-7856Nafiklhassk peptide B (Bld) [Mass/Vol]105 pg/mLHigh<100.0ProMethodist Charlton Medical CenterComment on above: Performed By: #### 94938-2, CBCA, HA1C, BMP #### [facility] ([id number]) [address] [facility], [address] [place] [address] #### PINR, [id number] #### [facility] ([id number]) [address] [place] [address], FIRST [address]LO[address] [place], [place] [address]Pqymvvlz I.cardiac High sensitivity method [Mass/Vol]on HOUR TROP I, HIGH SENSITIVITY5 ng/LNormal<16ProMethodist Charlton Medical CenterComment on above:Performed By: #### 71065-7, CBCA, HA1C, BMP #### [facility] ([id number]) [address] [place] [address], [address] [place] [address] #### PINR, [id number] #### [facility] ([id number]) [address] [place] [address], [place], [place] [address]AJNCDPWC I, HIGH SENSITIVITY6 ng/LNormal<16ProMedica Linn HospitalComment on above:Performed By: #### 08058-0, CBCA, HA1C, BMP #### [facility] ([id number]) [address] [place] [address], [address] [place] [address] #### PINR, [id number] #### [facility] ([id number]) [address] [place] [address], [place], [place] [address]EMD with Diffon 08-35-5993Ege. Basophil0.03 k/uLNormal0.00-0.20 [facility] HospitalComment on above:Performed By: #### VLAD, TROPI, MG, CP #### [address] [place] [id number] Supervisor [employer]: Jessie Wright.Imm.Granulocyte<0.10Nipxnj8.00-0.30[facility] HospitalComment on above:Performed By: #### CDP, TROPI, MG, CP #### [address] [place] [id number] Supervisor [employer]: Jessie Wright.Neutrophil (Seg)4.27 k/uLNormal1.50-8.10[facility] HospitalComment on above:Performed By: #### CDP, TROPI, MG, CP #### [address] [place] [address] Supervisor [employer]: Bennie Odonnell MDBasophils/100 WBC (Bld)0 %Normal0-2[facility] HospitalComment on above:Performed By: #### CDP, TROPI, MG, CP #### [address] [place], [facility]83 Supervisor [employer]: Bennie Odonnell MDEosinophils (Bld) [#/Vol]0.12 10*3/uLNormal 0.00-0.44[facility] HospitalComment on above:Performed By: #### CDP, TROPI, MG, CP #### [address] [place], [place] [address] Supervisor [employer]: Bennie Odonnell MDEosinophils/100 WBC (Bld)2 %Normal1-4[facility] HospitalComment on above:Performed By: #### CDP, TROPI, MG, CP #### [address] [place] [address] [employer]visor [employer]: Bennie Odonnell MDErythrocyte distribution width (RBC) [Ratio]14.3 % Ebkqeg82.8-14.4[facility] HospitalComment on above:Performed By: #### CDP, TROPI, MG, CP #### [address] [place], [facility]83 Supervisor [employer]: Bennie Odonnell MDHematocrit (Bld) [Volume fraction]40.0 %Normal 36.3-47.1[facility] HospitalComment on above:Performed By: #### CDP, TROPI, MG, CP #### [address] [place], [place] [address] Supervisor [employer]: Bennie Odonnell MDHemoglobin (Bld) [Mass/Vol]13.4 g/dLNormal 11.9-15.1MProtestant Deaconess Hospital HospitalComment on above:Performed By: #### CDP, TROPI, MG, CP #### [address] [place], [facility]83 Supervisor [employer]: Bennie Odonnell MDImmature granulocytes/100 WBC (Bld)0 %Rklixj7Fbnfr [facility]iffin HospitalComment on above:Performed By: #### CDP, TROPI, MG, CP #### [address] [place], [place] [phone] Supervisor [employer]: Bean Wrightmphocytes (Bld) [#/Vol]1.81 10*3/uLNormal 1.10-3.70[facility] HospitalComment on above:Performed By: #### CDP, TROPI, MG, CP #### [address] [place] [address] [employer]visor [employer]: Janice Wrighthocytes/100 WBC (Bld)26 %Hllyyw58-57CfellMercy Health Allen HospitalComment on above:Performed By: #### CDP, TROPI, MG, CP #### [address] [place] [address] [employer]visor [employer]: JOEY WrightCH (RBC) [Entitic mass]29.7 ciWkoslq75.2-33.5 [facility] HospitalComment on above:Performed By: #### CDP, TROPI, MG, CP #### [address] [place], [place] [id number] Supervisor [employer]: JOSELO WrightC (RBC) [Mass/Vol]33.5 g/sZJyvqla13.4-34.8[facility] HospitalComment on above:Performed By: #### CDP, TROPI, MG, CP #### [address] [place], [place] [id number] Supervisor [employer]: JOEY WrightCV (RBC) [Entitic vol]88.7 zFIbbuzp12.6-102.9 [facility] HospitalComment on above:Performed By: #### CDP, TROPI, MG, CP #### [address] [place] [address] Supervisor [employer]: JOEY Wrightonocytes (Bld) [#/Vol]0.80 10*3/uLNormal0.10-1.20 [facility] HospitalComhenry ford cottage hospital on above:Performed By: #### CDP, TROPI, MG, CP #### [address] [place] [address] Supervisor [employer]: JOEY Wrightonocytes/100 WBC (Bld)11 %Normal3-12[facility] HospitalComment on above:Performed By: #### CDP, TROPI, MG, CP #### [address] [place] [address] [employer]visor [employer]: Rohit Wrightutrophil (Seg)61 %Cyedbo47-30ZfakxMercy Health Allen HospitalComhenry ford cottage hospital on above:Performed By: #### CDP, TROPI, MG, CP #### [address] [place] [address] Supervisor [employer]: PANKAJ WrightBC Automated0.0 per 100 WBCNormal0.0[facility] HospitalComhenry ford cottage hospital on above:Performed By: #### CDP, TROPI, MG, CP #### [address] [place] [address] Supervisor [employer]: Dalila Wright CountSee Reflexed IPF JcznpzQxmomv972-031 [facility] HospitalComhenry ford cottage hospital on above:Performed By: #### CDP, TROPI, MG, CP #### [address] [place] [address] Supervisor [employer]: Dalila Wright, Fluoresc.243 k/iRWelxxj274-893ZnetyMercy Health Allen HospitalComhenry ford cottage hospital on above:Performed By: #### CDP, TROPI, MG, CP #### [address] [place] [address] Supervisor [employer]: OLESYA Wright Immature Fract.1.2 %Normal1.1-10.3[facility] HospitalComment on above:Performed By: #### CDP, TROPI, MG, CP #### [address] [place] [address] Supervisor [employer]: KATHIE Wright ([facility]) [#/Vol]4.51 10*6/uLNormal3.95-5.11[facility] HospitalComment on above:Performed By: #### CDP, TROPI, MG, CP #### [address] [place], [facility]83 Supervisor [employer]: WILBUR Wright ([facility]) [#/Vol]7.1 10*3/uLNormal3.5-11.3MProtestant Deaconess Hospital HospitalComment on above:Performed By: #### CDP, TROPI, MG, CP #### [address] [place], [place] [address] Supervisor [employer]: Bennie Odonnell [facility] Metabolic Profon 21-15-6143Ucnbmuv [Mass/Vol] 4.3 g/dLNormal3.5-5.2MProtestant Deaconess Hospital HospitalComment on above:Performed By: #### CDP, TROPI, MG, CP #### [address] [place] [address] Supervisor [employer]: Bennie Odonnell MDAlbumin/Glob Ratio1.2Tpoefg8.0-2.5[facility] HospitalComment on above:Performed By: #### CDP, TROPI, MG, CP #### [address] [place] [address] Supervisor [employer]: Niranjan Wrightkaline Myod346 U/CFjokol27-741TumbbMercy Health Allen HospitalComment on above:Performed By: #### CDP, TROPI, MG, CP #### [address] [place] [address] Supervisor [employer]: Bennie Sturtz, MDALT [Catalytic activity/Vol]26 U/TNbqttg11-30QvflfMercy Health Allen HospitalComment on above:Performed By: #### CDP, TROPI, MG, CP #### [address] [place] [address] Supervisor [employer]: Bennie Odonnell MDAnion gap [Moles/Vol]12 mmol/LNormal9-16[facility] HospitalComment on above:Performed By: #### CDP, TROPI, MG, CP #### [address] [place] [address] Supervisor [employer]: Bennie Odonnell MDAST [Catalytic activity/Vol]25 U/TIenhss69-49ZiqsxMercy Health Allen HospitalComment on above:Performed By: #### CDP, TROPI, MG, CP #### [address] [place] [address] Supervisor [employer]: Bennie Odonnell MDBilirubin [Mass/Vol]0.7 mg/dLNormal0.00-1.20[facility] HospitalComment on above:Performed By: #### CDP, TROPI, MG, CP #### [address] [place] [address] Supervisor [employer]: Bennie Odonnell MDBUN/CRE Tmkxw37Nioq5-35IkpvlMercy Health Allen Hospital Comment on above:Performed By: #### CDP, TROPI, MG, CP #### [address] [place] [address] Supervisor [employer]: GREGORY Wrightalcium [Mass/Vol]10.1 mg/dLNormal8.6-10.4[facility] HospitalComment on above:Performed By: #### CDP, TROPI, MG, CP #### [address] [place] [address] Supervisor [employer]: GREGORY Wrighthloride [Moles/Vol]103 mmol/MJtgqpe43-689FevseMercy Health Allen HospitalComment on above:Performed By: #### CDP, TROPI, MG, CP #### [address] [place] [address] Supervisor [employer]: GREGORY WrightO2 [Moles/Vol]25 mmol/FJswoxj34-47MsakmMercy Health Allen HospitalComment on above:Performed By: #### CDP, TROPI, MG, CP #### [address] [place], [facility]83 Supervisor [employer]: GREGORY Wrightreatinine [Mass/Vol]0.6 mg/dLNormal0.50-0.90[facility] HospitalComment on above:Performed By: #### CDP, TROPI, MG, CP #### [address] [place], [facility]83 Supervisor [employer]: Bennie Odonnell MDGFR/1.73 sq M.predicted among non-blacks MDRD (S/P/Bld) [Vol rate/Area]mL/min/{1.73_m2}Normal>60[facility] HospitalComment on above:Result Comment: These results are not intended for [...] or following therapy that affects renal tubular secretion.Performed By: #### CDP, TROPI, MG, CP #### [address] [place] [address] Supervisor [employer]: Bennie Odonnell MDGlucose [Mass/Vol]171 mg/rTQmvb67-10UybwgTrinity Health System West CampusComment on above:Performed By: #### CDP, TROPI, MG, CP #### [address] [place] [address] Supervisor [employer]: Bennie Odonnell MDPotassium [Moles/Vol]3.9 mmol/LNormal3.7-5.3[facility] HospitalComment on above:Performed By: #### CDP, TROPI, MG, CP #### [address] [place], [place] [address] Supervisor [employer]: Bennie Odonnell MDProtein [Mass/Vol]7.7 g/dLNormal6.6-8.7MerWyandot Memorial Hospital HospitalComment on above:Performed By: #### CDP, TROPI, MG, CP #### [address] [place] [address] Supervisor [employer]: Bennie Odonnell MDSodium [Moles/Vol]140 mmol/BDszpru098-725Zoyel Framingham HospitalComment on above:Performed By: #### CDP, TROPI, MG, CP #### [address] [place], [place] [address] Supervisor [employer]: Bennie Odonnell MDUrea nitrogen [Mass/Vol]27 mg/dLHigh8-23[facility] HospitalComment on above:Performed By: #### CDP, TROPI, MG, CP #### [address] [place], [place] [address] Supervisor [employer]: PACHECO Wrightrug Scr, Abuse, Uron 73-34-6897Luytlmcgmyd(s),Ur NegativeNormalNEGMercy Framingham HospitalComment on above:Result Comment: Cutoff: 1000 ng/mLPerformed By: #### VALERIE #### [address] [place] [address] Supervisor [employer]: Bennie Odonnell MDBarbiturate(s),UrNegativeNormalNEGMercy Framingham HospitalComment on above:Result Comment: Cutoff: 200 ng/mlPerformed By: #### VALERIE #### [address] [place], [facility]83 Supervisor [employer]: Bennie Odonnell MDBenzodiazepine(s)NegativeNormalNEGMercy Framingham HospitalComment on above:Result Comment: Cutoff: 200 ng/mlPerformed By: #### VALERIE #### [address] [place], [place] [phone] Supervisor [employer]: Bennie Odonnell MDBuprenorphrine, UrNegativeNormalNEGMercy Framingham HospitalComment on above:Result Comment: Cutoff: 5 ng/mlPerformed By: #### VALERIE #### [address] [place], [place] [address] Supervisor [employer]: GREGORY Wrightannabinoid(s),UrNegativeNormalNEGMercy Framingham HospitalComhenry ford cottage hospital on above:Result Comment: Cutoff: 50 ng/mlPerformed By: #### VALERIE #### [address] [place], [place] [address] Supervisor [employer]: GREGORY Wrightocaine MetaboliteNegativeNormalNEGMercy Framingham HospitalComment on above:Result Comment: Cutoff: 300 ng/mlPerformed By: #### VALERIE #### [address] [place], [place] [address] Supervisor [employer]: Bennie Odonnell MDFentanyl, UrineNegativeNormalNEGMercy Framingham HospitalComhenry ford cottage hospital on above:Result Comment: Cutoff: 5 ng/mlPerformed By: #### VALERIE #### [address] [place] [address] Supervisor [employer]: Bennie Odonnell MDInterpretive InfoThis method is a screening test to detect only these drug classes as part of aNormalMercy Framingham HospitalComhenry ford cottage hospital on above:Result Comment: medical workup. Confirmatory testing by another method should be ordered if clinically indicated.Performed By: #### VALERIE #### [address] [place], [place] [phone] Supervisor [employer]: JOEY Wrightethadone Ql (U)NegativeNormalNEGMerWyandot Memorial Hospital HospitalComment on above:Result Comment: Cutoff: 300 ng/mlPerformed By: #### VALERIE #### [address] [place], [place] 2195[address] Supervisor [employer]: Bennie Odonnell MDOpiate(s), UrNegativeNormalNEGMerWyandot Memorial Hospital HospitalComment on above:Result Comment: Cutoff: 300 ng/ml Note: The Opiate screen is not intended to detect Oxycodone.Performed By: #### VALERIE #### [address] [place], [place] [address] Supervisor [employer]: Bennie Odonnell MDOxycodone, UrineNegativeNormalNEGMerMidState Medical CenterComment on above:Result Comment: Cutoff: 100 ng/mlPerformed By: #### VALERIE #### [address] [place], [place] [phone] Supervisor [employer]: Wagner Wrightcyclidine, UrNegativeNormalNEGTwin City Hospital HospitalComhenry ford cottage hospital on above:Result Comment: Cutoff: 25 ng/mlPerformed By: #### VALERIE #### [address] [place], [place] [address] Supervisor [employer]: Bennie Odonnell MDGlucose, Whole Bloodon 27-85-3208Syuaaqz [Mass/Vol]194 mg/kRIxsz73-585FnxkrSt. Anthony's Hospitalgnesiumon 10-25-2024 Magnesium [Mass/Vol]2.0 mg/dLNormal1.6-2.4[facility] HospitalComment on above: Performed By: #### CDP, TROPI, MG, CP #### [address] [place] [address] Supervisor [employer]: Bennie Odonnell MDThyroid Stim. Horm.on 93-92-3185Bsvthch Stim. Horm.0.79 uIU/mLNormal0.27-4.20[facility] HospitalComment on above:Performed By: #### VALERIE #### [facility] [address] [place] [address] Supervisor Toy [employer]: Paulina Wright 16-74-6630Meawagpu, High Sens31 ng/L High0-14[facility] HospitalComment on above:Result Comment: High Sensitivity Troponin values cannot be compared with other Troponin methodologies.Performed By: #### TROPI #### [facility] [address] [place], [place] [address] Supervisor Toy [employer]: Karina Wright, High Sens33 ng/LHigh0-14[facility] HospitalComhenry ford cottage hospital on above:Result Comment: High Sensitivity Troponin values cannot be compared with other Troponin methodologies.Performed By: #### CDP, TROPI, MG, CP #### [facility] [address] [place], [place] [address] Supervisor [employer]: Bennie Odonnell MDXR CHEST (SINGLE VIEW FRONTAL)on 06-70-0679EZ CHEST (SINGLE VIEW FRONTAL)EXAMINATION: ONE XRAY VIEW OF THE CHEST 10/25/2024 [...] Signed by: Miguel Dyer MD 10/25/24 Final resultNormalMercy Health Allen HospitalEK 12 LeadOrdered By: Christine Garcia on 74-46-3201Vpwezw Efnp98YSLQho [facility] [employer] Phone: P Szpc36plmcpnfMkoWinchester Medical Center [employer] [facility] Phone: P-R [id number] [facility] [employer] Phone: Q-T [id number] [facility] Phone: QRS Bizhfbmn27 [employer] Phone: QTc Calculation (Bazett)452 [employer] Phone: R Zsyd24mmwbtsoDod [employer] Work Phone: T Bcrx02cardvoyJdr [employer] Phone: Ventricular [id number] [employer] Work Phone: Bon [employer] Work Phone: EKG 12 Leadon 01-77-0637Esprba sinus rhythm Cannot rule out Inferior infarct (cited on or before 20-DEC-2008) Abnormal ECG When compared with ECG of 19-NOV-2017 15:02, No significant change was found Confirmed by CHRISTINE GARCIA ([id number]) on 10/06/2024 12:22:51 [facility]MSAINT [facility] Christine Garcia MD - 10/06/2024 Normal sinus rhythm Cannot rule out Inferior infarct (cited on or before 20-DEC-2008) Abnormal ECG When compared with ECG of 19-NOV-2017 15:02, No significant change was found Confirmed by CHRISTINE GARCIA ([id number]) on 10/06/2024 12:22:51 PM Cent[facility] HealthProPlanMRSA DNA Probe, Nasalon 74-16-5150ZJCA, DNA, Nasal NegativeNEGATIVEBanner Payson Medical Center Who What WearComment on above:NEGATIVE: MRSA DNA not detected by nucleic acid amplification. Results should be used as an adjunct to nosocomial control efforts to identify patients needing enhanced precautions. The test is not intended to identify patients with staphylococcal infections. Results should not be used to guide or monitor treatment for MRSA infections. Specimen Description.NASAL SWABBon Who What WearBanner Payson Medical Center Who What Wear MRSA, DNA, Nasalon 72-79-4001RAUR, DNA, NasalNegativeNormalNEGMerMidState Medical CenterComment on above:Result Comment: NEGATIVE: MRSA DNA not detected by nucleic acid amplification. Results should be used as an adjunct to nosocomial control efforts to identify patients needing enhanced precautions. The test is not intended to identify patients with staphylococcal infections. Results should not be used to guide or monitor treatment for MRSA infections. Performed By: #### VALERIE #### [facility] [address] [place] [address] Supervisor [employer]: Bennie Odonnell MDGreenwich Hospital Metabolic Panelon 99-13-1707Lgtvq gap [Moles/Vol]9 mmol/L9 - 16 mmol/LBon Providence HospitalCalcium [Mass/Vol]10.0 mg/dL8.6 - 10.4 mg/dLBon Providence HospitalChloride [Moles/Vol]102 mmol/L98 - 107 mmol/LBon Providence HospitalCO2 [Moles/Vol]28 mmol/L20 - 31 mmol/LBon Providence HospitalCreatinine [Mass/Vol]0.6 mg/dL0.50 - 0.90 mg/dLBon [place] HospitalDVTel [facility] MemorialEst, Glom Filt Rate- PINFBon Providence HospitalComment on above: These results are not intended for use [...] following therapy that affects renal tubular secretion. Glucose [Mass/Vol]165 mg/xLHdnt74 - 99 mg/dLBon [facility] Interpretation and review of laboratory resultsAbnormalBon [facility] Potassium [Moles/Vol]4.3 mmol/L3.7 - 5.3 mmol/LBon Providence HospitalSodium [Moles/Vol]139 mmol/L136 - 145 mmol/LBon Providence HospitalUrea nitrogen [Mass/Vol]18 mg/dL8 - 23 mg/dLBon Providence HospitalUrea nitrogen/Creatinine [Mass ratio]30 mg/mgHigh9 - 20Bon [facility] HospitalBon [facility] Basic Metabolic Profon 74-63-5655Rsoah gap [Moles/Vol]9 mmol/LNormal9-16[facility] Allen HospitalComment on above:Performed By: #### CDP, BMP #### [facility] [address] [place] [address] [place] [address] Supervisor Toy Assembly: Bennie Odonnell MDBUN/CRE Dwevm37Wiox0-95ShjdyMercy Health Allen Hospital Comment on above:Performed By: #### CDP, BMP #### [address] Metzger, [place] [id number] Supervisor Toy Assembly: GREGORY Wrightalcium [Mass/Vol]10.0 mg/dLNormal8.6-10.4MerMidState Medical CenterComment on above:Performed By: #### CDP, BMP #### [address] Metzger, [place] [id number] Supervisor Toy Assembly: GREGORY Wrighthloride [Moles/Vol]102 mmol/BRrpxxd62-617Ppioe Tiffin HospitalComment on above:Performed By: #### CDP, BMP #### [address] [place] [address] Supervisor Toy Assembly: Bennie Odonnell MDCO2 [Moles/Vol]28 mmol/UUrvjzu21-02Ihegt Tiffin HospitalComment on above:Performed By: #### CDP, BMP #### [address] Metzger, [place] [id number] Supervisor Toy Assembly: GREGORY Wrightreatinine [Mass/Vol]0.6 mg/dLNormal0.50-0.90[facility] HospitalComment on above:Performed By: #### CDP, BMP #### [address] [place] [address] Supervisor Toy Assembly: Bennie Odonnell MDGFR/1.73 sq M.predicted among non-blacks MDRD (S/P/Bld) [Vol rate/Area]mL/min/{1.73_m2}Normal>60MerWyandot Memorial Hospital HospitalComment on above:Result Comment: These results are not intended for [...] or following therapy that affects renal tubular secretion.Performed By: #### CDP, BMP #### [address] Metzger, [place] [phone] Supervisor Toy Assembly: Bennie Odonnell MDGlucose [Mass/Vol]165 mg/nLBnmk16-69LwgsmTrinity Health System West CampusComment on above:Performed By: #### VLAD, BMP #### [address] [place] [phone] Supervisor Toy Assembly: RAGINI Wrightotassium [Moles/Vol]4.3 mmol/LNormal3.7-5.3MProtestant Deaconess Hospital HospitalComment on above:Performed By: #### VLAD, BMP #### [address] [place] [address] Supervisor Toy Assembly: ALICIA Wrightodium [Moles/Vol]139 mmol/DNhwrfr630-217QequwMercy Health Allen HospitalComment on above:Performed By: #### VLAD, BMP #### [address] [place] [address] Supervisor Toy Assembly: Bennie Odonnell MDUrea nitrogen [Mass/Vol]18 mg/dLNormal8-23Mer[facility] Health Allen HospitalComment on above:Performed By: #### VLAD, BMP #### [address] Metzger, [facility]83 Supervisor Toy Assembly: Bennie Odonnell [facility] with Auto Differentialon 67-00-8858Pdisxtqpw (Bld) [#/Vol]0.04 10*3/uLBon Secours Parkview Health Bryan HospitalBasophils/100 WBC (Bld)1 %0 - 2 %[facility] HealthEosinophils (Bld) [#/Vol]0.05 10*3/uLBon Secours Parkview Health Bryan HospitalEosinophils/100 WBC (Bld)1 %1 - 4 %[facility] SecAdena Health SystemErythrocyte distribution width (RBC) [Ratio]14.3 %11.8 - 14.4 %[facility] Hematocrit (Bld) [Volume fraction]40.8 %36.3 - 47.1 %[facility] Hemoglobin (Bld) [Mass/Vol]13.3 g/dL11.9 - 15.1 g/dLBon SecAdena Health System Immature granulocytes (Bld) [#/Vol]0.03 10*3/uLBon Secours Parkview Health Bryan HospitalImmature granulocytes/100 WBC (Bld)0 %0[facility] HospitalLymphocytes/100 WBC (Bld) 26 %24 - 43 %[facility] HospitalLymphocytes/100 WBC (Bld)2.01 %[facility] HospitalH (RBC) [Entitic mass]29.2 pg25.2 - 33.5 pgBon SecAdena Health SystemMCHC (RBC) [Mass/Vol]32.6 g/dL28.4 - 34.8 g/dLBon SecAdena Health SystemMCV (RBC) [Entitic vol]89.7 fL82.6 - 102.9 fLBon SecAdena Health SystemMonocytes/100 WBC (Bld)9 %3 - 12 %[facility] HospitalMonocytes/100 WBC (Bld)0.68 %[facility] HospitalNeutrophils/100 WBC (Bld)63 %36 - 65 %[facility] HospitalNucleated RBC/100 WBC (Bld) [Ratio]0.0 %0.0 per 100 WBCBon SecAdena Health SystemPlatelet mean volume (Bld) [Entitic vol]9.5 fL8.1 - 13.5 fLBon SecSlidell Memorial Hospital and Medical Center HealthPlatelets (Bld) [#/Vol]303 10*3/uLBon Secours Parkview Health Bryan HospitalRBC (Bld) [#/Vol]4.55 10*6/uL3.95 - 5.11 m/uLBon SecAdena Health SystemSegmented neutrophils/100 WBC (Bld)4.94 %Bon Providence HospitalWBC other (Bld) [#/Vol] 7.8Bon [facility] HospitalBon [facility] with Diffon 10-05-2024 Abs. Basophil0.04 k/uLNormal0.00-0.20MerWyandot Memorial Hospital HospitalComment on above: Performed By: #### CDP, BMP #### [address] [place] [address] Supervisor Toy Assembly: Jessie Wright.Imm.Granulocyte0.03 k/uLNormal0.00-0.30MerWyandot Memorial Hospital HospitalComment on above:Performed By: #### VLAD, BMP #### [address] [place] [address] Supervisor Toy Assembly: Jessie Wright.Neutrophil (Seg)4.94 k/uLNormal1.50-8.10[facility] HospitalComment on above:Performed By: #### CDP, BMP #### [address] [place] [address] Supervisor Toy Assembly: Bennie Odonnell MDBasophils/100 WBC (Bld)1 %Normal0-2Mer[facility]amingham HospitalComment on above:Performed By: #### VLAD, BMP #### [address] [place] [address] Supervisor Toy Assembly: AMILCAR Wrightosinophils (Bld) [#/Vol]0.05 10*3/uLNormal 0.00-0.44MerWyandot Memorial Hospital HospitalComment on above:Performed By: #### CDP, BMP #### [address] [place] [address] Supervisor Toy Assembly: AMILCAR Wrightosinophils/100 WBC (Bld)1 %Normal1-4MerWyandot Memorial Hospital HospitalComment on above:Performed By: #### CDP, BMP #### [address] Metzger, [facility]83 Supervisor Toy Assembly: Bennie Odonnell MDErythrocyte distribution width (RBC) [Ratio]14.3 % Ndllor34.8-14.4[facility] HospitalComment on above:Performed By: #### CDP, BMP #### [address] Metzger, [place] [address] Supervisor Toy Assembly: Bennie Odonnell MDHematocrit (Bld) [Volume fraction]40.8 %Normal 36.3-47.1MProtestant Deaconess Hospital HospitalComment on above:Performed By: #### VLAD, BMP #### [address] Metzger, [place] [address] Supervisor Toy Assembly: Bennie Odonnell MDHemoglobin (Bld) [Mass/Vol]13.3 g/dLNormal 11.9-15.1MProtestant Deaconess Hospital HospitalComment on above:Performed By: #### CDP, BMP #### [address] Metzger, [place] [address] Supervisor Toy Assembly: Bennie Odonnell MDImmature granulocytes/100 WBC (Bld)0 %Lplxug1Flawy Tiffin HospitalComment on above:Performed By: #### CDP, BMP #### [address] Metzger, [facility]83 Supervisor Toy Assembly: Bennie Odonnell MDLymphocytes (Bld) [#/Vol]2.01 10*3/uLNormal 1.10-3.70[facility] HospitalComment on above:Performed By: #### CDP, BMP #### [address] [place] [id number] Supervisor Toy Assembly: Bennie Odonnell MDLymphocytes/100 WBC (Bld)26 %Djedbp27-42Bbnpm Tiffin HospitalComment on above:Performed By: #### CDP, BMP #### [address] Metzger, [place] [phone] Supervisor Toy Assembly: JOEY WrightCH (RBC) [Entitic mass]29.2 izCbneam88.2-33.5 [facility] HospitalComment on above:Performed By: #### CDP, BMP #### [address] [place]zger, [place] [phone] Supervisor Toy Assembly: JOEY WrightCHC (RBC) [Mass/Vol]32.6 g/bAAbdasu21.4-34.8[facility] HospitalComment on above:Performed By: #### CDP, BMP #### [address] [place]zger, [place] 1638983 Supervisor Toy Assembly: JOEY WrightCV (RBC) [Entitic vol]89.7 hQWmtglz83.6-102.9 [facility] HospitalComment on above:Performed By: #### CDP, BMP #### [address] [place]zger, [place] [phone] Supervisor Toy Assembly: JOEY Wrightonocytes (Bld) [#/Vol]0.68 10*3/uLNormal0.10-1.20 [facility] HospitalComment on above:Performed By: #### CDP, BMP #### [address] Metzger, [place] [phone] Supervisor Toy Assembly: JOEY Wrightonocytes/100 WBC (Bld)9 %Normal3-12[facility] HospitalComment on above:Performed By: #### CDP, BMP #### [address] [place]zger, [place] [phone] Supervisor Toy Assembly: Bennie Odonnell MDNeutrophil (Seg)63 %Apoziw15-19Zsjnw Tiffin HospitalComment on above:Performed By: #### CDP, BMP #### [address] Metzger, [facility]83 Supervisor Toy Assembly: ROSA Wright Automated0.0 per 100 WBCNormal0.0[facility] HospitalComment on above:Performed By: #### CDP, BMP #### [address] [place] [address] Supervisor Toy Assembly: Dalila Wright mean volume (Bld) [Entitic vol]9.5 fL Normal8.1-13.5[facility] HospitalComment on above:Performed By: #### CDP, BMP #### [address] [place] [address] Supervisor Toy Assembly: Bobbi Wright (Bld) [#/Vol]303 10*3/qJNpidad577-629 [facility] HospitalComment on above:Performed By: #### VLAD, BMP #### [address] [place] [address] Supervisor Toy Assembly: KATHIE Wright (Bld) [#/Vol]4.55 10*6/uLNormal3.95-5.11[facility] HospitalComment on above:Performed By: #### VLAD, BMP #### [address] [place] [address] Supervisor Toy Assembly: WILBUR Wright (Bld) [#/Vol]7.8 10*3/uLNormal3.5-11.3MProtestant Deaconess Hospital HospitalComment on above:Performed By: #### VLAD, BMP #### [address] [place] [address] Supervisor Toy Assembly: ZACH Wright DNA, Nasalon 05-74-6679Flahadvn Description .NASAL SWABNormalTwin City Hospital HospitalComment on above:Performed By: #### VALERIE #### [address] [place] [address] Supervisor Toy Assembly: Bennie Odonnell MDTYPE AND SCREENon 98-99-1826XKJ and Rh group Nom (Bld)Blood group O Rh(D) negativeBon Providence HospitalArm Band KvpnieEZ54066 Bon [facility]edricFirelands [facility] Bank Sample Tfnnktrujc15/23/2025,2359Bon Providence HospitalBlood group antibodies identified NomNegativeBon [facility] Medical CenterType + Screenon 04-75-5900Twjx + ScreenSample Expiration 10/28/2024,2359 Arm Band Number [id number] ABO/Rh(D) O NEGATIVE Antibody Screen NEGATIVENoKettering Health Behavioral Medical CenterComment on above:Performed By: #### TYS #### [facility] [address] [place] [address] Supervisor Toy Assembly: IJTENDRA WrightMM SCREENING BILATERAL W CADon 67-18-1071KOQG SCREENING BILATERAL W CADMAMM SCREENING BILATERAL W CAD MARI Wing YAQUELIN 1950 [id number] EXAM: MAMM SCREENING BILATERAL W CAD, 09/30/2024 [...] 10/01/2024 12:06 PM 1 a MAMM 1 YRNormalProMedica Los Angeles General Medical CenterXR CHEST 2 VWSon 88-11-0915DU CHEST 2 VWSXR CHEST 2 VWS XR CHEST 2 VWS INDICATION: cough COMPARISON: 07/27/2024 FINDINGS: Normal cardiomediastinal silhouette. Slight hyperinflation. No focal consolidation, effusion, or pneumothorax. Degenerative changes of the spine and shoulders. IMPRESSION: Hyperinflation. No acute cardio pelvic process otherwise. Finalized by Thomas Abreu MD on 09/19/2024 12:10 PMNormalUniversity Hospitals Cleveland Medical Center/FLU A+B/RSV by NAAT/Molecularon 55-81-3392YHEK/FLU A+B/RSV by NAAT/MolecularFLU A PCR Negative (qualifier value) FLU B [...] operators who are performing tests using either Scalix DX or Localocracy systems and is limited to laboratories that [...] specimen repeat. Fact Sheet for Healthcare Providers: https://www.fda.gov/media/716810/download Fact Sheet for Patients: https://www.fda.gov/media/215096/downloadNormalProMethodist Charlton Medical CenterComment on above:Performed By: #### COVFLR #### [facility] ([id number]) [address] [place] [address], [place], [place] [address]Rymrvpul Reporton 17-36-6765Esyltuvv report Cyto stain.thin prep Doc (Cvx/Vag)(NOTE) Path Number: [id number] DIAGNOSIS Imaged ThinPrep Pap - Vaginal (1 monolayer slide): Specimen Adequacy: Satisfactory for evaluation. Descriptive Diagnosis: Negative for intraepithelial lesion or malignancy. Cytotech Screener: EY Electronically Signed Out Alber BECK(ASCP) ey/09/07/2024 Source of Specimen: A: Imaged ThinPrep Pap - Vaginal (1 monolayer slide) HPV Reflex?......................HPV if Abnormal Clinical History TAHBSO Z01.419 Routine edi coordinator exam without abnormal findings Processing Lab: [address] [address] Interpretation performed at [address] [address] This Pap Test has been evaluated with the assistance of the ThinPrep Pap Test Imaging System. The Pap smear is a screening test primarily for squamous epithelial lesions, which is subject to both false negative and false positive results. Your patient should be reminded to consult you immediately if she experiences any suspicious signs or symptoms, regardless of her Pap smear result. GYNECOLOGIC CYTOLOGY REPORT Patient Name: [facility] Rec: [id number] Rocket Raise [employer] [employer] [facility] ANATOMIC PATHOLOGY [address] [facility]. [address] NoKettering Health Behavioral Medical CenterMeasure post void residualon 25-73-5543Leumig1 mLProMedica Health SystemThe University of Toledo Medical Center SystemPOCT Urinalysis Auto, W/O Microscopyon 92-83-0482Nsspixms Poct Urine BloodNegative [facility] Health SystemExternal Poct Urine Glucose2+ProMhale county hospital Health System External Poct Urine KetonesNegativeProSearcy Hospital Health SystemExternal Poct Urine Leukocyte EsteraseNegativeProSearcy Hospital Health SystemExternal Poct Urine Nitrite NegativeProSearcy Hospital Health SystemExternal Poct Urine Ph5.5PCleveland [facility] System External Poct Urine ProteinNegativeProAvita Health System SystemProMansfield Hospitalca Health SystemECG 12-LEADon 17-23-6725[place] [address] Electrocardiograph Report Signed Patient: MARI JAMISON MR#: [id number] : 1950 Acct:[id number] Age/Sex: 74 / F ADM Date: 08/01/24 Loc: MS 230-[address]: Koki Sherwood D.O. 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 Signed By: 08/02/24 0646 DD/ 01 TD/TT: Tar Heater:CIROadiologcali, Radiologist, - 08/02/2024 [place] [address] Electrocardiograph Report Signed Patient: MARI JAMISON MR#: [id number] : 1950 Acct:[id number] Age/Sex: 74 / F ADM Date: 08/01/24 Loc: MS 230-[address]: Koki Sherwood D.O. Ordering Physician: John Park Date of Service: 08/01/24 Procedure(s): ECG 12 lead Accession Number(s): [id number] cc: [facility] Test Date: 2024-08-01 Pat Name: [facility] Department: Room: - Gender: Female Workers' Compensation Hearings Officer: : 1950 Requested By: Order Number: [id number] Reading MD: SRINIVAS GARIBAY Measurements Intervals Crystal Rate: 79 P: 90 OH: 122 QRS: 9 QRSD: 94 T: 34 QT: 384 QTc: 419 Interpretive Statements 1100 Sinus rhythm Baseline artifact 9110 normal ECG Compared to ECG 04/09/2024 17:26:38 No significant changes Electronically Signed On 08-02-2024 6:45:42 EDT by SRINIVAS GARIBAY Dictated By: Srinivas Garibay D.O. Signed By: 08/02/24 0646 DD/ 1702 TD/TT: Tar Heater: SOH[address] 12-LEADOrdered By: Radiologist Radiology on 89-43-5211[employer] Work Phone: ECG 12-LEADon 04-55-9098Srnmnacky Study observation (narrative)SOHAM HealthcareCT ABDOMEN AND PELVIS WO CONTon 03-94-3969ZV ABDOMEN AND PELVIS WO CONTCT ABDOMEN AND PELVIS WO CONT CT ABDOMEN AND PELVIS WO CONT 07/27/2024 [...] morphology. No focal hepatic lesion. Status post cholecystectomy.No biliary dilation. Spleen: No splenomegaly. Pancreas: No [...] Ebenezer Tracey MD on 07/27/2024 3:45 PM IMac MD have personally reviewed the image(s) and agree with and/or edited the report Finalized by Mac Arreola MD on 07/28/2024 8:[address] Vincent Medical CenterBASIC METABOLIC PANLon 29-67-9251Vxcme gap [Moles/Vol]10 mmol/LNormal 5-15Mer[facility] Health St. Vincent Medical CenterComment on above:Performed By: #### 07035-4, CBCA, HA1C, BMP #### [facility] ([id number]) [address], [address] [place] [address] #### PINR, [id number] #### [facility] ([id number]) [address] [place] [address]Jewdemm [Mass/Vol]9.8 mg/dLNormal8.5-10.5POhioHealth Dublin Methodist HospitalComment on above:Performed By: #### 96125-2, CBCA, HA1C, BMP #### [facility] ([id number]) [address] [place] [address], [address] [place] [address] #### PINJeison, [id number] #### [facility] ([id number]) [address] [place] [address]Ttmdodpw [Moles/Vol]101 mmol/AOrmxbc54-247DmfThrykfMethodist Charlton Medical CenterComment on above:Performed By: #### 04741-9, CBCA, HA1C, BMP #### [facility] ([id number]) [address] [place] [address], [address] [place] [address] #### TAWNY, 73263-9 #### [facility] ([id number]) [address] [place] [address] 265[address]KX9 [Moles/Vol]27 mmol/GYxvmbj97-47RpfMefhwdOhioHealth Dublin Methodist Hospital Comment on above:Performed By: #### 06725-9, CBCA, HA1C, BMP #### [facility] ([id number]) [address] [place] [address], [address] [place] [address] #### PINR, [id number] #### [facility] ([id number]) [address] [place] [address]Esjbpjuchg [Mass/Vol]0.73 mg/dLNormal0.40-1.00ProMethodist Charlton Medical CenterComment on above:Result Comment: METHOD TRACEABLE TO IDMS STANDARD Performed By: #### 78053-6, CBCA, HA1C, BMP #### [facility] ([id number]) [address] [place] [address], [address] [place] [address] #### PINJeison, [id number] #### [facility] ([id number]) [address] [place] [address]68[address]IXX/1.73 sq M.predicted among non-blacks MDRD (S/P/Bld) [Vol rate/Area]86 mL/min/{1.73_m2}Normal>59ProMethodist Charlton Medical CenterComment on above:Result Comment: Reported eGFR is based on the CKD-EPI 2020 equation that does not use a race coefficient.Performed By: #### 89848-0, CBCA, HA1C, BMP #### [facility] ([id number]) [address] [place] [address], [facility] [address] [place] [address] #### TAWNY, 41205-2 #### [facility] ([id number]) [address] [place] [address]Csrtujk [Mass/Vol]223 mg/kAApxx41-08VleImdteuMercy Health St. Vincent Medical Center Comment on above:Performed By: #### 19169-4, CBCA, HA1C, BMP #### [facility] ([id number]) [address] [place] [address], [facility] [address] [place] [address] #### TAWNY, 07528-7 #### [facility] ([id number]) [address] [place] [address]Kawybuggf [Moles/Vol]4.2 mmol/LNormal3.5-5.0ProMethodist Charlton Medical CenterComment on above:Performed By: #### 55760-1, CBCA, HA1C, BMP #### [facility] ([id number]) [address] [place] [address], [facility] [address] [place] [address] #### PINR, [id number] #### [facility] ([id number]) [address] [place] [address] 23946Ysobma [Moles/Vol]138 mmol/FJusgti572-876AvvGokxtw Fremont HospitalComment on above:Performed By: #### 37455-2, CBCA, HA1C, BMP #### [facility] ([id number]) [address] [facility], [address] [place] [address] #### TAWNY 09159-6 #### [facility] ([id number]) [address] [place] [address] 695[address]Axgc nitrogen [Mass/Vol]22 mg/dLNormal5-27ProMethodist Charlton Medical CenterComment on above:Performed By: #### 44121-5, CBCA, HA1C, BMP #### [facility] ([id number]) [address] [facility], [address] [place] [address] #### TAWNY 12550-5 #### [facility] ([id number]) [address] [place] [address] 130[address]FSG AND AUTO DIFFon 42-88-4739VELVUNPR BASOPHIL0.0 X10E9/L Normal0.0-0.2PPrairieville Family Hospitalica Los Angeles General Medical CenterComment on above:Performed By: #### 19003-3, CBCA, HA1C, BMP #### [facility] ([id number]) [address] [facility], [address] [place] [address] #### TAWNY, 09246-0 #### [facility] ([id number]) [address] [place] [address]WNMEOCHE NEUTROPHIL3.2 X10E9/LNormal1.5-6.6ProMethodist Charlton Medical CenterComment on above:Performed By: #### 27945-4, CBCA, HA1C, BMP #### [facility] ([id number]) [address] [facility], [address] [place] [address] #### PINR, [id number] #### [facility] ([id number]) [address] [place] [address] 92341Awnpyzmpw/100 WBC (Bld)0.9 %NormalMercy Health St. Vincent Medical Center Comment on above:Performed By: #### 26556-8, CBCA, HA1C, BMP #### [facility] ([id number]) [address], [address] [place] [address] #### TAWNY, 94783-0 #### [facility] ([id number]) [address] [place] [address] 83801Dtvpjgipluz (Bld) [#/Vol]0.1 10*3/uLNormal0.0-0.4Mercy Health St. Vincent Medical CenterComment on above:Performed By: #### 93686-7, CBCA, HA1C, BMP #### [facility] ([id number]) [address] [facility], [address] [place] [address] #### TAWNY 43913-4 #### [facility] ([id number]) [address] [place] [address] 41220Akywotmtnvh/100 WBC (Bld)2.1 %NormalMercy Health St. Vincent Medical Center Comment on above:Performed By: #### 62325-4, CBCA, HA1C, BMP #### [facility] ([id number]) [address] [facility], [address] [place] [address] #### TAWNY, 79830-2 #### [facility] ([id number]) [address] [place] [address] 27586Xkzvaofxmly distribution width (RBC) [Ratio]13.1 %Normal 11.5-15.0ProMethodist Charlton Medical CenterComment on above:Performed By: #### 63485-9, CBCA, HA1C, BMP #### [facility] ([id number]) [address], [address] [place] [address] #### TAWNY, 46623-8 #### [facility] ([id number]) [address] [place] [address] 13825Kzzmjocyby (Bld) [Volume fraction]38.2 %Mljkgq83-06FvyMsvjlhMethodist Charlton Medical CenterComment on above:Performed By: #### 12104-6, CBCA, HA1C, BMP #### [facility] ([id number]) [address] [facility], [address] [place] [address] #### PINR, [id number] #### [facility] ([id number]) [address] [place] [address] 20364Jwxokmwxbv (Bld) [Mass/Vol]12.9 g/fPWkacul60.7-15.5POhioHealth Dublin Methodist HospitalComment on above:Performed By: #### 06770-5, CBCA, HA1C, BMP #### [facility] ([id number]) [address] [facility], [address] [place] [address] #### PINR, [id number] #### [facility] ([id number]) [address] [place] [address] 611[address]Pehyuihflgu (Bld) [#/Vol]1.8 10*3/uLNormal1.0-3.5POhioHealth Dublin Methodist HospitalComment on above:Performed By: #### 91031-0, CBCA, HA1C, BMP #### [facility] ([id number]) [address] [facility], [address] [place] [address] #### PINR, [id number] #### [facility] ([id number]) [address] [place] [address] 62690Lfyiwxkvmdy/100 WBC (Bld)31.2 %NormalMercy Health St. Vincent [facility] Comment on above:Performed By: #### 95810-1, CBCA, HA1C, BMP #### [facility] ([id number]) [address], [address] [place] [address] #### PINR, [id number] #### [facility] ([id number]) [address] [place] [address] 72422UWY (RBC) [Entitic mass]29.7 hbTgcjjb48-02HzaOhncroMethodist Charlton Medical CenterComment on above:Performed By: #### 84900-6, CBCA, HA1C, BMP #### [facility] ([id number]) [address] [place] [address], [address] [place] [address] #### PINR, [id number] #### [facility] ([id number]) [address] [place] [address] 62398KBMC (RBC) [Mass/Vol]33.8 g/tSDweekh51-54MnnNngqkfMethodist Charlton Medical CenterComment on above:Performed By: #### 77850-2, CBCA, HA1C, BMP #### [facility] ([id number]) [address] [place] [address], [address] [place] [address] #### PINR, [id number] #### [facility] ([id number]) [address] [place] [address] 70223UFO (RBC) [Entitic vol]88 jDTbspwr07-725EtfKfldxn [facility]remont HospitalComment on above:Performed By: #### 04144-6, CBCA, HA1C, BMP #### [facility] ([id number]) [address] [place] [address], [address] [place] [address] #### PINR, [id number] #### [facility] ([id number]) [address] [place] [address] 71453Gcgmtcmgk (Bld) [#/Vol]0.6 10*3/uLNormal0-0.9ProMethodist Charlton Medical CenterComment on above:Performed By: #### 97443-0, CBCA, HA1C, BMP #### [facility] ([id number]) [address] [place] [address], [address] [place] [address] #### PINJeison, [id number] #### [facility] ([id number]) [address] [place] [address] 81276Zmegottfo/100 WBC (Bld)10.3 %NormalMer[facility] Comment on above:Performed By: #### 32964-7, CBCA, HA1C, BMP #### [facility] ([id number]) [address] [place] [address], [address] [place] [address] #### TAWNY, [id number] #### [facility] ([id number]) [address] [place] [address] 50749Rswowxufoou/100 WBC (Bld)55.5 %[facility] Comment on above:Performed By: #### 20518-8, CBCA, HA1C, BMP #### [facility] ([id number]) [address] [place] [address], [address] [place] [address] #### TAWNY, 51786-9 #### [facility] ([id number]) [address] [place] [address] 97665Bwubhsbe mean volume (Bld) [Entitic vol]8.5 fLNormal7-12 [facility] CenterComment on above:Performed By: #### 24517-6, CBCA, HA1C, BMP #### [facility] ([id number]) [address] [place] [address], [address] [place] [address] #### PINR, [id number] #### [facility] ([id number]) [address] [place] [address] 56417Cocdxnnzu (Bld) [#/Vol]239 10*3/jUGtnhth704-009RrtIkftgi [facility]remont HospitalComment on above:Performed By: #### 52087-4, CBCA, HA1C, BMP #### [facility] ([id number]) [address], [address] [place] [address] #### PINR, [id number] #### [facility] ([id number]) [address] [place] [address] 45221VXP COUNT4.34 X10E12/LNormal3.80-5.20[facility] Comment on above:Performed By: #### 73177-9, CBCA, HA1C, BMP #### [facility] ([id number]) [address] [facility] [facility], [address] [place] [address] #### TAWNY, 39358-9 #### [facility] ([id number]) [address] [place] [address] 70718SUL (Bld) [#/Vol]5.7 10*3/uLNormal4.0-11.0ProMethodist Charlton Medical CenterComment on above:Performed By: #### 72196-9, CBCA, HA1C, BMP #### [facility] ([id number]) [address], [address] [place] [address] #### PINR, [id number] #### [facility] ([id number]) [address] [place] [address] 05077NDH A1C (GLYCO-HGB)on 03-77-5892Ogitutb [Mass/Vol]212 mg/dL NormalProMethodist Charlton Medical CenterComment on above:Performed By: #### 22100-1, CBCA, HA1C, BMP #### [facility] ([id number]) [address] [facility] [facility], [address] [place] [address] #### PINR, [id number] #### [facility] ([id number]) [address] [place] [address] 62170SgU9s (Bld) [Mass fraction]9.0 %High4.4-5.6ProMethodist Charlton Medical CenterComment on above:Result Comment: NOTE ADA Guidelines Result HgbA1c Normal : less than 5.7 % Prediabetes : 5.7 % to 6.4 % Diabetes : > 6.4 % Use with caution in patients with abnormal hemoglobin variants as the half-life of red blood cells and in vivo glycation rates are affected.Performed By: #### 05183-6, CBCA, HA1C, BMP #### [facility] ([id number]) [address], [address] [place] [address] #### TAWNY [id number] #### [facility] ([id number]) [address] [place] [address] 15704JDRG PCR NASALon 90-28-7287TNEQ DNA [place]+probe Ql (Unsp spec) NegativeNormalNEGProMethodist Charlton Medical CenterComment on above:Performed By: #### 72312-3, CBCA, HA1C, BMP #### [facility] ([id number]) [address], [address] [place] [address] #### TAWNY, 25065-2 #### [facility] ([id number]) [address] [place] [address] 45803MVRIXMG AND INRon 34-76-3246WER Coag (PPP) [Relative time]1.0 {INR}Normal0.8-1.1[facility] Medical CenterComment on above:Performed By: #### 04654-1, CBCA, HA1C, BMP #### [facility] ([id number]) [address] [address], [address] [place] [address] #### TAWNY, 87506-4 #### [facility] ([id number]) [address] [place] [address] 15932LJ Coag (PPP) [Time]11.9 sNormal9.8-13.2[facility] Medical CenterComment on above:Result Comment: NEW REFERENCE RANGEPerformed By: #### 47430-6, CBCA, HA1C, BMP #### [facility] ([id number]) [address], [address] [place] [address] #### PINR, [id number] #### [facility] ([id number]) [address] [place] [address] [id number] CHEST 2 VWSon 45-89-1338BZ CHEST 2 VWSXR CHEST 2 VWS HISTORY: A 74 year [...] by Jair Sparks MD on 07/27/2024 5:20 PMNormalProMedica Los Angeles General Medical CenteraPTT Coag (PPP) [Time]on 23-87-4351tDLY Coag (Bld) [Time]30 pUfclfb42-24 [facility] Medical CenterComment on above:Result Comment: NEW REFERENCE RANGE Performed By: #### 03788-0, CBCA, HA1C, BMP #### [facility] ([id number]) [address], [address] [place] [address] #### PINR, [id number] #### [facility] ([id number]) [address] [place] [address] 70266QIO AUTO DIFFon 33-32-2778KSBR #0.0 103/ulNormal0.0-0.1[facility] District HospitalComment on above:Performed By: #### CBC #### [facility] [address] [place] [address] Dr. Traci CernaBasophils/100 WBC (Bld)0.7 %Normal0.2-2.0[facility] Comment on above:Performed By: #### CBC #### [facility] [address] [place] [address] Dr. Traci Parra #0.2 103/ulNormal0.0-0.7[facility] CenterComment on above: Performed By: #### CBC #### [facility] [address] [place] [address] Dr. Traci Ariasosinophils/100 WBC (Bld)3.5 %Normal0.9-7.0[facility] Comment on above:Performed By: #### CBC #### [facility] [address] [place] [address] Dr. Traci Ariasrythrocyte distribution width (RBC) [Ratio]13.6 %Qccnvv37.0-15.0 [facility] CenterComment on above:Performed By: #### CBC #### [facility] [address] [place] [address] Dr. Traci CernaHematocrit (Bld) [Volume fraction]38.9 %Fibaeq20.0-48.0[facility] CenterComment on above:Performed By: #### CBC #### [facility] [address] [place] [address] Dr. Traci CernaHemoglobin (Bld) [Mass/Vol]12.8 g/vMMnoxtq52.0-16.0[facility] CenterComment on above:Performed By: #### CBC #### [facility] [address] [place] [address] Dr. Traci Zee #0.01 10e3/ulNormal0.00-0.03[facility] CenterComment on above:Performed By: #### CBC #### [facility] [address] [place] [address] Dr. Traci Zee %0.2 %Normal0.0-0.5[facility] CenterComment on above: Performed By: #### CBC #### [facility] [address] [place] [address] Dr. Traci Vela #2.0 103/ulNormal1.2-3.8[facility] CenterComment on above:Performed By: #### CBC #### [facility] [address] [place] [address] Dr. Traci Chavezhocytes/100 WBC (Bld)37.8 %Xqfkgf35.5-60.0[facility] CenterComment on above:Performed By: #### CBC #### [facility] [address] [place] [address] Dr. Traci Amezcua DIFF REQNONormalThe [facility] CenterComment on above: Performed By: #### CBC #### [facility] [address] [place] [address] Dr. Traci Hernandez (RBC) [Entitic mass]28.6 uhOyomol07.7-34.0[facility] CenterComment on above:Performed By: #### CBC #### [facility] [address] [place] [address] Dr. Traci Gu (RBC) [Mass/Vol]32.9 g/hOWkrbfc57.9-35.2[facility] CenterComment on above:Performed By: #### CBC #### [facility] [address] [place] [address] Dr. Traci Wilcox (RBC) [Entitic vol]86.8 bVYfzcnq63.0-99.0[facility] CenterComment on above:Performed By: #### CBC #### [facility] [address] [place] [address] Dr. Traci Roth #0.6 103/ulNormal0.3-0.8[facility] CenterComment on above:Performed By: #### CBC #### [facility] [address] [place] [address] Dr. Traci Martinsocytes/100 WBC (Bld)10.8 %Normal1.7-12.0[facility] Comment on above:Performed By: #### CBC #### [facility] [address] [place] [address] Dr. Traci Gillis #2.5 103/ulNormal1.4-6.5[facility] CenterComment on above:Performed By: #### CBC #### [facility] [address] [place] [address] Dr. Traci Eagleutrophils/100 WBC (Bld)47.0 %Qjleby91.0-75.0[facility] CenterComment on above:Performed By: #### CBC #### [facility] [address] [place] [address] Dr. Traci Ellsworthlet mean volume (Bld) [Entitic vol]9.9 fLNormal9.5-13.5The [facility]rol HospitalComment on above:Performed By: #### CBC #### [facility] [address] [place] [address] Dr. Traci CernaPLT218 103/xxPiblko673-118Opr [facility] CenterComment on above: Performed By: #### CBC #### [facility] [address] [place] [address] Dr. Traci CernaRBC4.48 106/ulNormal4.20-5.40[facility] CenterComment on above:Performed By: #### CBC #### [facility] [address] [place] [address] Dr. Traci CernaWBC5.4 103/ulNormal4.0-11.0[facility] CenterComment on above: Performed By: #### CBC #### [facility] [address] [place] [address] [address] C[address] N[address] WO CONon 14-73-7558DR NECK ST WO CONCT SOFT TISSUE NECK WITHOUT IV CONTRAST. INDICATION: [...] or inflammation. Normal epiglottis and nasopharyngeal adenoids. PARAPHARYNGEAL/RETROPHARYNGEAL SPACES: Clear. No inflammation or fluid collection. LYMPH NODES: No enlarged cervical lymph nodes by CT criteria. THYROID: No mass. UPPER LUNGS: Clear. MUSCULOSKELETAL: No acute osseous abnormality.. IMPRESSION: No soft tissue inflammation, fluid collection or discrete neck mass. Electronically authenticated by: SUSAN PENDLETON Date: 2023-01-05 20:31[facility] HospitalPROF CHEM 8 (BAS METB)on 40-45-6806Qacce gap [Moles/Vol]12.3 mmol/LNormalHighland District HospitalComment on above:Performed By: #### TSH, BMP #### [facility] [address] [place] [address] Dr. Traci CernaCalcium [Mass/Vol]9.4 mg/dLNormal8.5-10.1[facility] Comment on above:Performed By: #### TSH, BMP #### [facility] [address] [place] [address] Dr. Traci CernaChloride [Moles/Vol]105 mmol/BVqbckl96-605BzjHighland District Hospital Comment on above:Performed By: #### TSH, BMP #### [facility] [address] [place] [address] Dr. Traci CernaCO2 [Moles/Vol]29.0 mmol/YSenhgm27.0-32.0[facility] Comment on above:Performed By: #### TSH, BMP #### [facility] [address] [place] [address] Dr. Traci CernaCreatinine [Mass/Vol]0.78 mg/dLNormal0.55-1.02[facility] District HospitalComment on above:Performed By: #### TSH, BMP #### [facility] [address] [place] [address] Dr. Yilan ChangEGFR-AF KAZAKH>60Normal>=60The [facility] CenterComment on above:Performed By: #### TSH, BMP #### [facility] [address] [place] [address] Dr. Traci AriasGFR-NON AF KAZAKH>60Normal>=60The [facility] CenterComment on above:Performed By: #### TSH, BMP #### [facility] [address] [place] [address] Dr. Traci CernaGlucose [Mass/Vol]178 mg/dLCritically nxsp29-350Ztt [facility] CenterComment on above:Performed By: #### TSH, BMP #### [facility] [address] [place] [address] Dr. Traci CernaPotassium [Moles/Vol]4.3 mmol/LNormal3.5-5.1[facility] Comment on above:Performed By: #### TSH, BMP #### [facility] [address] [place] [address] Dr. Traci CernaSodium [Moles/Vol]142 mmol/BVnrpix477-699Eyt [facility] Comment on above:Performed By: #### TSH, BMP #### [facility] [address] [place] [address] Dr. Traci CernaUrea nitrogen [Mass/Vol]21.0 mg/dLCritically high7.0-18.0The [facility] CenterComment on above:Performed By: #### TSH, BMP #### [facility] [address] [place] [address] Dr. Traci Donovan nitrogen/Creatinine [Mass ratio]26.9 mg/mgNormalThe [facility] CenterComment on above:Performed By: #### TSH, BMP #### [facility] [address] [place] [address] Dr. Traci Higgins 22-98-4059HNJ7.650 uIU/mLNormal0.358-3.740The [facility] CenterComment on above:Performed By: #### TSH, BMP #### [facility] [address] [place] [address] Dr. Traci Desai Thyroidon 69-41-8092DR ThyroidCLINICAL HISTORY: Enlarged thyroid on physical exam. COMPARISON: None available. TECHNIQUE: Ultrasound of the thyroid was performed with a regional survey. Reference: ACR Thyroid, Imaging Recording and Data System (TI-RADS): White paper of the ACR TI-RADS committee. Journal of the [employer]: Volume 14, issue 5, [...] and signed by Mac Dai on 01/01/2023 0924NormalNortphoenix children's hospitaln [facility] SpecialistColonoscopy studyOrdered By: Jairo Fisher on 04-03-2021 No dictationMerProLink Solutions Work Phone: [facility] Work Phone: esophagogastroduodenoscopyOrdered By: Jairo Fisher on 46-31-4590To dictationKontiki Work Phone: [facility] Work Phone: Vital Signs Date TimeVital SignValuePerforming FrmknnecmYqkpmtot03-75-5296 12:16-0400Body shcvpe987.6 cmLjethro Kennedy MD Work Phone: [phone]10-03-2025 12:16-0400Body mass index (BMI) [Ratio]33.64 kg/w4YayhpBindu Kennedy MD Work Phone: [phone]10-03-2025 12:16-0400Body lyzujd77.91 kgBindu Kennedy MD Work Phone: [phone]10-03-2025 12:16-0400Diastolic blood flgpdlki49 mm[Hg]Bindu Kennedy MD Work Phone: [phone]10-03-2025 12:16-0400Heart rate 92 /minBindu Kennedy MD Work Phone: [phone] [address]10-03-2025 12:16-1267EuS7% (BldA) [Mass fraction]94 %Bindu Kennedy MD Work Phone: [phone]10-03-2025 12:16-0400Systolic blood elehtewx216 mm[Hg]Bindu Kennedy MD Work Phone: [phone]01-30-2025 14:27-0500Body itjapd591.1 cmEliel Childers MD Work Phone: [phone]01-30-2025 14:27-0500Body mass index (BMI) [Ratio]31.78 kg/w6TwjygaehEliel Childers MD Work Phone: [phone]01-30-2025 14:27-0500Body .64 kgEliel Childers MD Work Phone: [phone]01-30-2025 14:27-0500Diastolic blood smnedvnp13 mm[Hg]Eliel Childers MD Work Phone: [phone]01-30-2025 14:27-0500Heart rate 90 /minEliel Childers MD Work Phone: [facility]01-30-2025 14:27-8338QvW6% (BldA) [Mass fraction]97 %Eliel Childers MD Work Phone: [facility]01-30-2025 14:27-0500Systolic blood syvnoghu047 mm[Hg]Eliel Childers MD Work Phone: [facility]01-20-2025 06:54-0500Body pxqkskgxdyd31.11 [degF]Juan Casey MD Work Phone: [phone]01-20-2025 06:54-0500Diastolic blood mm[Hg]Juan Casey MD Work Phone: [phone]01-20-2025 06:54-0500Heart twhp614 /Brittni Casey MD Work Phone: [phone]-[facility]01-20-2025 06:54-0500 Respiratory rate16 /minJuan Casey MD Work Phone: [phone]-[facility]01-20-2025 06:54-1176WzM3% (BldA) [Mass fraction]94 %Juan Casey MD Work Phone: [phone] [facility]01-20-2025 06:54-0500Systolic blood qgzblifr087 mm[Hg]Juan Casey MD Work Phone: [phone]- [facility]12-31-2024 11:25-0500Body .6 cmPniko Casey MD Work Phone: [phone]-[facility]12-31-2024 11:25-0500Body mass index (BMI) [Ratio]30.9 kg/f9SatgppJuan Casey MD Work Phone: [phone]- [facility]12-31-2024 11:25-0500Body xghjbmwyidj78.39 [degF]Juan Casey MD Work Phone: [facility]12-31-2024 11:25-0500Body efipqd15.65 kgJuan Casey MD Work Phone: bHen[facility]12-31-2024 11:25-0500Diastolic blood nqruoewd73 mm[Hg]Juan Casey MD Work Phone: b[facility]12-31-2024 11:25-0500Heart ecvl891 /minJuan Casey MD Work Phone: b[facility]12-31-2024 11:25-0500 Respiratory rate16 /minJuan Casey MD Work Phone: [phone] [place], [place] [address]12-31-2024 11:25-2214RtK8% (BldA) [Mass fraction]96 %Juan Casey MD Work Phone: bHen[facility]12-31-2024 11:25-0500Systolic blood esktuoap032 mm[Hg]Juan Casey MD Work Phone: bHen[facility]11-21-2024 10:49-0500Body sojnco251.1 Jacob Kennedy MD Work Phone: [facility]11-21-2024 10:49-0500Body mass index (BMI) [Ratio]29.95 kg/d9ZxcraBindu Kennedy MD Work Phone: [facility]11-21-2024 10:49-0500Body mkguwb08.65 kgBindu Kennedy MD Work Phone: [facility]11-21-2024 10:49-0500Diastolic blood mm[Hg]Bindu Kennedy MD Work Phone: [facility]11-21-2024 10:49-0500Heart rate 80 /minBindu Kennedy MD Work Phone: [facility]11-21-2024 10:49-7209TzT3% (BldA) [Mass fraction]93 %Bindu Kennedy MD Work Phone: [facility]11-21-2024 10:49-0500Systolic blood mm[Hg]Bindu Kennedy MD Work Phone: [facility]11-05-2024 12:18-0500Body vqwcap403.1 cmTdeandre Aguirre MD Work Phone: [facility]11-05-2024 12:18-0500Body mass index (BMI) [Ratio]27.96 kg/e5JoctzwiDomenica Aguirre MD Work Phone: [facility]11-05-2024 12:18-0500Body covkoe26.2 kgDomenica Aguirre MD Work Phone: [facility]11-05-2024 12:18-0500Diastolic blood ojwxmtgl18 mm[Hg]Domenica Aguirre MD Work Phone: [facility]11-05-2024 12:18-0500Heart rate 104 /minDomenica Aguirre MD Work Phone: [facility]11-05-2024 12:18-0500Systolic blood gdbpqwuj345 mm[Hg]Domenica Aguirre MD Work Phone: [facility]09-23-2024 13:27-0400Body zfajpc346.1 cmMickey Ray MD Work Phone: [facility]09-23-2024 13:27-0400Body mass index (BMI) [Ratio]28.16 kg/p1RuygqjwbvkuMickey Ray MD Work Phone: [facility]09-23-2024 13:27-0400Body djbjdi82.75 kgMickey Ray MD Work Phone: [facility]03-04-2024 09:58-0500Body wmcbva331.6 cmNarinder Palomo MD Work Phone: [facility]03-04-2024 09:58-0500Body mass index (BMI) [Ratio]33.99 kg/y3WllopfcxNarinder Palomo MD Work Phone: [facility]03-04-2024 09:58-0500Body jpxarx83.81 kgNarinder Palomo MD Work Phone: [facility]03-04-2024 09:58-0500Diastolic blood gmihxtij19 mm[Hg]Narinder Palomo MD Work Phone: [facility]03-04-2024 09:58-0500Heart rate 95 /minNarinder Palomo MD Work Phone: [facility]03-04-2024 09:58-0787YvY5% (BldA) [Mass fraction]96 %Narinder Palomo MD Work Phone: [facility]03-04-2024 09:58-0500Systolic blood yanjtuye666 mm[Hg]Narinder Palomo MD Work Phone: [facility]02-27-2024 10:52-0500Body lagbav051.6 Huma Sibley MD Work Phone: [phone] [place], [place] 7522502-27-2024 10:52-0500Body mass index (BMI) [Ratio]34.33 kg/d0KhvaklSergo Sibley MD Work Phone: [phone] [place], [place] 7522502-27-2024 10:52-0500Body pkohjg16.72 Kash Sibley MD Work Phone: [phone] [place], [place] 7522502-27-2024 10:52-0500Diastolic blood ztdpamtb10 mm[Hg]Sergo Sibley MD Work Phone: [phone] [place] [address] [employer] Aihqbl73-66-5364 10:52-0500Heart rate 95 /minSergo Sibley MD Work Phone: [phone] [place], [place] 7522502-27-2024 10:52-8941DrU7% (BldA) [Mass fraction]96 %Sergo Sibley MD Work Phone: [employer]02-27-2024 10:52-0500Systolic blood pniqxntn290 mm[Hg]Sergo Sibley MD Work Phone: [employer]08-24-2022 14:30-0400Body isisil700.56 cmDanimary [place] Other [employer] Other 08-24-2022 14:30-0400Body mass index (BMI) [Ratio] 35.36 kg/d4Clmkvl adaffixena Other [employer] Other 08-24-2022 14:30-0400Body fnjdub74.44 kgDanimary [place] Other [employer] Other 06-29-2021 10:30-0400Diastolic blood clwvpcmy46 mm[Hg] Jairo Fisher MD Work Phone: [employer] Work Phone: [phone]) 247-482006-29-2021 10:30-0400Heart rate75 /Anuja Fisher MD Work Phone: [employer] Work Phone: 1(432) 452-723006-29-2021 10:30-0400Respiratory rate18 /Anuja Fisher MD Work Phone: [employer] Work Phone: [phone]) 887-101106-29-2021 10:30-2148GhD7% (BldA) [Mass fraction]94 % Jairo Fisher MD Work Phone: [employer] Work Phone: 1([phone]) 250-386506-29-2021 10:30-0400Systolic blood usxgsobz984 mm[Hg] Jairo Fisher MD Work Phone: [employer] Work Phone: 1([phone]) 506-898406-29-2021 10:09-0400Body ulphvijyuyt14.39 [degF]Jairo Fisher MD Work Phone: [employer] Work Phone: 1([phone]) 252-388906-29-2021 08:45-0400Body mass index (BMI) [Ratio] 36.05 kg/m2Jairo Fisher MD Work Phone: [employer] Work Phone: 1([phone]) 587-675706-29-2021 08:45-0400Body fhxwvy57.25 kgJairo Fisher MD Work Phone: [employer] Work Phone: [phone]) 637-366806-08-2021 14:25-0400Body hyougz178.6 Erasmo Fisher MD Work Phone: [employer] Work Phone: Encounters Encounter DateEncounter TypeCare ProviderFacilityStart: 07-12-2025 End: 17-93-7494dsctbegddqBAPSUBLCHazel Hawkins Memorial Hospitaltart: 07-09-2025 End: 77-08-4743Ompzkc-up encounterMareulalio [facility] Physicians CardiologyComment on above:Basic Metabolic Panel, BNP, CBCStart: 07-08-2025 ambulatoryLASelect Medical [facility] Ohiotart: 07-08-2025 End: 07-83-1279Boxwbj outpatient visit 40 minutesMohamed Isabel Weldon MD Work Phone: [facility] Phys[facility] CardiologyComment on above:Preop cardiovascular exam (Primary Dx); Pre-operative cardiovascular examination; Mixed hyperlipidemia; Essential hypertension; Chest pain, unspecified type; Hyperlipidemia, unspecified hyperlipidemia type; Shortness of breathStart: 07-08-2025 End: [id number] encounter statusMohamed Isabel Weldon MD Work Phone: [facility] Hospitaltart: 07-08-2025 End: 93-43-8800atwnautuvnPXYLV [facility] Hospitaltart: 07-07-2025 End: 72-37-0802Hvciitbdi encounterJelatia Mancini CMAProMedica Physicians CardiologyStart: 06-20-2025 End: 46-99-7875Rczphoaiz department patient visitCOMMUNITY HEALTH SERVICES [facility] Hospitaltart: 05-02-2025 End: 44-82-8699ymnpwkvsqmEYKCSR E [facility] HOSPITALNSProMedica Kaiser Foundation Hospitaltart: 04-26-2025 End: 65-11-4471swkrkuvcqaIDJRY R [facility] Campustart: 04-26-2025 Encounter for other preprocedural examinationPHITriHealth Good [facility] Start: 04-26-2025 End: 55-94-9517Hemgyxg encounter statusMthz [facility] Personal On Demand Phone: Start: 04-26-2025 End: 70-44-2666Lkhmgfaqvt hospital visit by physicianMthz Ekg ScheduleMTHZ EKG Comment on above:Pre-op testingStart: 03-24-2025 End: 51-37-3535emrgitvydrTKSFSD AQEELProMedHedrick Medical Center HospitalStart: 03-17-2025 ambulatoryRAMSHA AQEELProMedica Linn HospitalStart: 02-24-2025 End: 93-82-4690Fioetwjbq department patient visitCOMMUNWVUMEDICINE [facility]ARN[facility] HospitalStart: 01-31-2025 End: 11-53-9575Scdpodvub department patient visitNOV[facility] HospitalStart: 12-29-2024 End: 12-36-1954oothdeuotfKhbzra Eugene Havens MDFacility:[facility] HospitalStart: 12-20-2024 End: 13-55-9398auclqmptmmRcrkxe Eugene Havens MDFacility:[facility] HospitalStart: 19-36-0060ucvmxueddsSviivq Eugene Havens MDFacility:[facility] HospitalStart: 12-14-2024 End: 68-43-5630Skqailhgk department patient visitCOMMUNWVUMEDICINE BARN[facility] HE[facility] SERVICES [facility] Hospitaltart: 12-14-2024 End: 92-42-5314xjhrrziszjLuawxn Eugene Havens MDFacility:[facility] HospitalStart: 11-29-2024 End: 53-38-6634Cukvmekpk department patient visitCOMLEVINE CHILDR[facility] Hospitaltart: 11-18-2024 End: 55-95-2829faqupbphjtDERKTUOJCommunity Regional Medical Centertart: 11-17-2024 End: 85-47-6018Zwlboacki encounterAlvina Puri Physicians CardiologyComment on above:cardiac clearanceStart: 11-12-2024 End: 39-80-7633Ldpiaopnb department patient visitNOVANT [facility] Hospitaltart: 11-06-2024 End: 39-63-8035Utzwgpftq department patient visitSpearfish Regional Hospitaltart: 11-05-2024 End: 54-13-7457nljbkxyjeqPYXZFXJFCommunity Regional Medical Centertart: 11-04-2024 End: 80-63-8726Mizuew outpatient visit 25 Patti hCilders MD Work Phone: [facility] Physicians CardiologyComment on above: Encounter for pre-operative cardiovascular clearance (Primary Dx); Essential hypertension; Hyperlipidemia, unspecified hyperlipidemia type; Racing heart beatStart: 11-04-2024 End: 42-72-9698Dfefekdtgots Arnaud Childers MD Work Phone: [facility] SystemStart: 11-04-2024 End: 76-78-2493nezubpzbldUYQKZAJCCommunity Regional Medical Centertart: 11-03-2024 End: 55-40-0155Rthbhkazt encounterLiza Donahue Physicians Cardiology Start: 10-30-2024 End: 17-99-1246Jympewrzd department patient visitSpearfish Regional Hospitaltart: 10-28-2024 End: 49-92-5286nijykvnadbTPNSUQ AQEELPLutheran Hospitaltart: 10-26-2024 End: 86-11-3964OtlwybAxqshpBelkys Puri Physicians CardiologyComment on above:Med RefillStart: 10-25-2024 End: 91-37-5660Vdihmzdju department patient visitBETTY DERREKKAMINIQUINNSpencercali Framingham HospitalStart: 10-25-2024 End: 16-85-6041aygwervevpHYPMFY E HAVENSMercy Framingham HospitalStart: 10-25-2024 End: 41-65-9114Jldouulvje hospital visit by Kaylee Casey MD Work Phone: mthz ORStart: 10-18-2024 End: 71-13-8804Ccjjipjxx encounterIris [facility] - [facility] ClinicStart: 10-05-2024 End: 97-86-5855iiugffpdbzMMQPRC W [facility] HospitalStart: 10-05-2024 End: 97-05-3509Jfvknlbtyf hospital visit by Kaylee Casey MD Work Phone: mthz PRE ADMITStart: 10-04-2024 End: 71-08-9811gzvlasccxyUufeynqJay Lerma MDFacility:PM Basia Start: 09-30-2024 End: 71-00-7539jbeqalxkkuWXUTFTMetroHealth Parma Medical Centertart: 09-19-2024 End: 86-81-2136Awmywervh department patient visitNOVANT [facility] HEALTH Medina Hospitaltart: 09-01-2024 End: 56-85-8709Tedzfjbpq department patient visitCOMLEVINE CHILDREN'S [facility]ALTH [facility] HospitalStart: 78-05-2784Bmyqabmjh for preprocedural cardiovascular examinationBINDU KENNEDYAccess Hospital Dayton HospitalStart: 08-26-2024 End: 68-23-0932Lbfujv outpatient visit 25 minutesBindu Kennedy MD Work Phone: [facility] Physicians CardiologyComment on above: Essential hypertension (Primary Dx); Pre-operative cardiovascular examination; Mixed hyperlipidemiaStart: 08-26-2024 End: 67-49-1923Frjkgce encounter statusBindu Kennedy MD Work Phone: [facility] SystemStart: 08-26-2024 End: 43-30-0635osgpdosdwsRKAAQ Dontae TRUEETTIMount St. Mary Hospitaltart: 08-19-2024 End: 50-80-3592gzrgacdsilWCWYJF Lor [facility] Hospitaltart: 08-19-2024 Encounter for gynecological examination (general) (routine) without abnormal findingsPHILIP Amber Tangfin HospitalStart: 08-19-2024 End: 40-01-5741Aidncoc encounter statusGloria Taylor DO Work Phone: [facility] HospitalStart: 08-19-2024 End: 47-45-6878Vvjbkwjzli hospital visit by physicianGloria Taylor DO Work Phone: mthz LaboratoryComment on above:Encounter for routine gynecologic examination in Medicare patientStart: 08-17-2024 End: 51-65-7671inarstrpldAWGZUQ E HAVENSProMedica Kaiser Foundation Hospitaltart: 08-17-2024 End: 70-72-9067xgsbwbfbgcDSAGZB E HAVENSProMedica Kaiser Foundation Hospitaltart: 08-10-2024 End: 29-97-3660Qhkhvd outpatient visit 15 minutesDomenica Aguirre MD Work Phone: [facility] Hospitalca Physicians Genito-Urinary SurgeonsComment on above:Mixed stress and urge urinary incontinence (Primary Dx)Start: 08-10-2024 End: 65-82-2803qlwoduhnxmTSSUGEX G SCHUSTERMansfield Hospital Ambulatory PPG Start: 08-09-2024 End: 17-20-2175kvchdnmuisBfvgjbz Vytautas Giedraitis MDFacility:PM Basia Start: 08-02-2024 End: 68-38-0181Hqjxbgfle encounterLalexis Banks CMAProMedica Physicians General SurgeryStart: 08-01-2024 End: 22-17-9119Dfumoaozv Result EncounterMasanjana ANDERSON Work Phone: NOQZ External Department UnsolicitedStart: 08-01-2024 End: 75-07-0861Fkpynzayz Result EncounterMattnona ANDERSON Work Phone: NOJH External Department UnsolicitedStart: 08-01-2024 End: 36-11-4867Nvbviqbzspbsp procedureAndoswaldo Barbosa [facility] - Acute CareStart: 07-30-2024 End: 79-73-5063Lxdncl OnlyMickey Ray MD Work Phone: [facility] General SurgeryComment on above: 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CMS-HCC) (Primary Dx)Start: 81-05-4991Ofdhfbeox for other preprocedural examinationCOMMUNWVUMEDICINE BARNESVILLE HOSPITAL SERVICESMount St. Mary Hospitaltart: 07-27-2024 End: 36-13-4024ralavpmmaiFQEMORHYRAKValley Presbyterian Hospitaltart: 07-26-2024 End: 65-27-6775ynhlvgdlmiNyakqhlNolberto Lerma MDFacility:PM Basia Start: 07-18-2024 End: 05-72-9841Kzmfzrkmo department patient visitCOMMUNWVUMEDICINE BARNESVIL[facility] HEALTH Medina Hospitaltart: 06-28-2024 End: 53-52-7559Qythtx outpatient new 30 Redd Ray MD Work Phone: [facility] General SurgeryComment on above: Abdominal wall hernia (Primary Dx)Start: 75-93-6680hhlrwijsqjHMCFOJGDRTH M OMAR [facility] Ambulatory PPGStart: 20-98-2691iksnzxcriqHpqmxrjy:[place] Start: 29-27-2388Cntugbgzu encounterNarinder Palomo MD Work Phone: [facility] - Sleep DisordersComment on above:Sleep Lab (PSG)Start: 12-08-2023 End: 95-43-6195Jkejnc outpatient new 45 Batool Palomo MD Work Phone: [facility] Pulmonary/Sleep MedicineComment on above:Pulmonary nodule (Primary Dx); HERMILA (obstructive sleep apnea); Obesity (BMI 30-39.9)Start: 12-08-2023 End: 50-98-4280chgnuyndplXSRFXFHK [facility] Ambulatory PPGStart: 12-02-2023 End: 61-71-9247Ocabdm outpatient visit 15 minutesDavid Ybarra MD Work Phone: [facility] CardiologyComment on above:Other chest pain (Primary Dx); Essential hypertensionStart: 93-06-4971Gtuwzgixb encounterPari Mancini CMA [facility]usedic Physicians CardiologyStart: 58-61-1334eacmrmmrvlNCRBI K [facility] Ambulatory PPGStart: 11-11-2023 End: 02-23-8882Gefnlpokm encounterJoe Solomon MD Work Phone: [facility] Pulmonary/Sleep MedicineStart: 10-21-2023 End: 25-69-6506zarwbyysacVEUQMN Madisyn FORMANNot AvailableStart: 01-05-2023 End: 28-71-1097lvbvpnujrvAT LARISA WORRELL .Facility:Y2Mtnhk: 05-29-2022 End: 84-42-6594tpmfajklbnTcjtfh Elsken Other [employer] Other start: 73-59-7589Txhjva outpatient visit 15 minutes Krishan MadridSaint Thomas River Park Hospital NeurosurgeryStart: 04-18-2022 End: 56-66-9906Kqiyiuidox hospital visit by Livier Taylor DO Work Phone: mthz LaboratoryStart: 04-10-2022 End: 35-38-6914izuiggjwfkYV DOCTOR MISCFacility:K0Mqssn: 66-96-0096vkpstjijmrID DOCTOR MISCFacility:H6Usnzz: 02-11-2022 End: 28-24-1650aywkeoemyxXY DOCTOR MISCFacility:E6Lrlfd: 04-03-2021 End: 41-22-8549Cailmtadnr hospital visit by Rochelle Fisher MD Work Phone: mthz ORStart: 09-07-2020 End: 62-32-9440Cbabbwr encounter procedureSKindred Hospital [facility]-Center for Breast CareStart: 12-06-2019 End: 77-18-4193Rvjfoljixo hospital visit by physicianAlethea Simms LaboratoryComment on above:Encounter for well woman exam with routine gynecological examStart: 06-15-2018 End: 05-68-4934Nfsamsy encounter statusPari Mancini [facility] SystemStart: 12-22-2017 End: 01-46-7600FkrqomokmcQELYRIZ PHYSICIANFacility:UTMCStart: 07-19-2013 End: 95-65-1837Tzcmdvn encounter statusJairo Fisher MD Work Phone: [facility] Procedures DateProcedureProcedure DetailPerforming ClinicianStart: 91-21-5665Iqt routine ecg w/least 12 lds w/i&rLaura Dontae Kennedy MD Work Phone: Start: 10-34-1224Suthhc-up visitFollow-upLJETHRO KENNEDYStart: 10-51-5671Jgq routine ecg w/least 12 lds w/i&rWendy R Toribio DESIGN PROJECT MANAGER - FIRE EXTINGUISHER MECHANIC Work Phone: Start: 67-10-5228Ihv routine ecg w/least 12 lds i&r onlyJuan Casey MD Work Phone: start: 72-88-9643Sxgoo metabolic panel calcium total Juan Casey MD Work Phone: start: 20-62-5912Qwfwf typing serologic aboJuan Casey MD Work Phone: start: 04-86-6804Xujji s aureus methicillin resist amp probe tqJuan Casey MD Work Phone: start: 28-43-2283Yummo dip stick/tablet rgnt auto w/o microscopyTimana Aguirre MD Work Phone: Start: 86-68-4723XLFIBMR POST VOID RESIDUALTimana Aguirre MD Work Phone: Start: 29-01-9938RWS 12-LEADMattnona ANDERSON Work Phone: Start: 51-91-9613Kvmnd depression screening assessment Pari Live CMAStart: 04-03-2021 End: 57-54-3393PfgjprbioogAtdw P Kuivinen MD Work Phone: Start: 54-27-8148OacekkklxickujndkpsdchftzhTihq P Kuivinen MD Work Phone: Start: 32-51-4922Ryja energy X-ray photon absorptiometrySTAFF, NONStart: 82-14-1466Oyyeveb of operative procedure on knee S/P right unicompartmental knee replacementJairo Fisher MD Work Phone: Plan of Treatment DateCare ActivityDetailAuthorStart: 53-18-3570Gitdrxjol for malignant neoplasm of breastBreast cancer screenBon Providence HospitalStart: 58-65-1317Tkbqrbs ScreeningTobacco ScreeningThe [facility] SystemStart: 18-79-3818EQpU,Tdap and Td Vaccines (2 - Tdap)DTaP,Tdap and Td Vaccines (2 - Tdap)[facility] SystemStart: 69-29-7899CMuQ/Tdap/Td vaccine (2 - Tdap)DTaP/Tdap/Td vaccine (2 - Tdap)[facility] Centerart: 49-25-3234Rhbmdpfvm for malignant neoplasm of colonBON German Hospitalart: 31-22-7029Zjgqnxe ScreeningTobacco ScreeningThe [facility] SystemStart: 33-81-1848Niabp BMI ScreeningAdult BMI ScreeningMercer County Community Hospitalca [facility] SystemStart: 59-86-3421Tlvyp BMI ScreeningAdult BMI ScreeningThe [facility] of [facility] SystemStart: 77-04-2954Rehiylx ScreeningTobacco ScreeningThe [facility] of [facility] SystemStart: 35-36-3958Ymdayir ScreeningTobacco ScreeningThe [facility] SystemStart: 53-11-4509BAP test (Diabetes, CKD 3-4, OR last GFR 15-59)GFR test (Diabetes, CKD 3-4, OR last GFR 15-59)[facility] HospitalStart: 10-08-2025 End: 96-51-9465Jmyfvbnnnlvcc metabolic 2000 panel - Serum or PlasmaCMP Lab Routine Essential hypertension Expected: 10/08/2025 (Approximate), Expires: 07/08/2026[facility] SystemComment on above:Expected: 10/08/2025 (Approximate), Expires: 07/08/2026Start: 10-08-2025 End: 35-31-7047Geaxr panelLipid panel Lab Routine Hyperlipidemia, unspecified hyperlipidemia type Expected: 10/08/2025 (Approximate), Expires: 07/08/2026 [facility] SystemComment on above:Expected: 10/08/2025 (Approximate), Expires: 07/08/2026Start: 82-40-8006UZH test (Diabetes, CKD 3-4, OR last GFR 15-59)GFR test (Diabetes, CKD 3-4, OR last GFR 15-59)[facility] Start: 70-74-5457Vpbyc BMI ScreeningAdult BMI ScreeningThe [facility] of [facility] System Start: 38-03-3965Fbugsiw ScreeningTobacco ScreeningThe [facility] SystemStart: 08-18-2025 End: 16-52-9827Pzcpjgd encounter wirojmsly51/13/2025 2:15 PM EST Office Visit [facility] [address] [place] [address] Eliel Childers MD [address] [place] [address] [facility] CardiologyStart: 62-24-3871Nejiv BMI ScreeningAdult BMI ScreeningThe [facility] of [facility] SystemStart: 84-67-8322Miowaxe ScreeningTobacco ScreeningThe [facility] of [facility] SystemStart: 08-08-2025 End: 94-19-2425Feuta metabolic 2000 panel - Serum or PlasmaBasic Metabolic Panel Lab Routine Essential hypertension Expected: 08/08/2025 (Approximate), Expires: 07/08/2026[facility] SystemComment on above:Expected: 08/08/2025 (Approximate), Expires: 07/08/2026Start: 93-42-1278Tqjxmtshd for malignant neoplasm of breastBreast cancer screenNorton Community HospitalStart: 07-18-2025 Adult BMI ScreeningAdult BMI ScreeningThe [facility] of [facility] SystemStart: 07-18-2025 Tobacco ScreeningTobacco ScreeningProAvita Health Systemtart: 07-15-2025 End: 43-75-7157Poeql metabolic 2000 panel - Serum or PlasmaBasic Metabolic Panel Lab Routine Essential hypertension Expected: 07/15/2025 (Approximate), Expires: 07/08/2026[facility] HospitalComment on above:Expected: 07/15/2025 (Approximate), Expires: 07/08/2026Start: 07-12-2025 End: 51-10-7738Lyxuylq encounter procedureGreen Cross Hospital - Mammography/DEXA ImagingStart: 07-08-2025 End: 51-02-1832Rtrs complete W/O contrastEcho complete W/O contrast Echocardiography Routine Chest pain, unspecified type Shortness of breath Expected: 07/08/2025, Expires: 07/08/2026[facility] Children's HospitalComment on above:Expected: 07/08/2025, Expires: 07/08/2026Start: 07-08-2025 End: 35-03-8780VA Heart Perfusion W stress and W radionuclide IVNuc stress Lexiscan Cardiac Services Routine Chest pain, unspecified type Shortness of breath Expected: 07/08/2025, Expires: 07/08/2026[facility] Children's HospitalComment on above:Expected: 07/08/2025, Expires: 07/08/2026Start: 07-08-2025 End: 05-50-1569Lmjvxrz encounter knqnniemw00/03/2025 1:00 PM EDT Office Visit [facility] [address] [place] [address] Margaret Weldon MD [address] [place] [address] Bindu Kennedy MD [address] [place] [address] [facility] CardiologyStart: 07-01-2025 End: 37-29-7913Gadkdqetr to same day surgery ovmnss3307/01/2025 9:40 AM EDT - 07/01/2025 10:30 AM EDT Surgery [facility] OR [address] [place], [place] [id number] Wm Barney MD [address] [place] [address] [address] [place] [id number] COLORECTAL CANCER SCREENING, NOT HIGH RISKMTHZ ORComment on above:COLORECTAL CANCER SCREENING, NOT HIGH RISKStart: 07-01-2025 End: 43-04-4012Auzxn ca scrn not hi rsk indCOLORECTAL CANCER SCREENING, NOT HIGH RISK Chronic abdominal pain 07/01/2025 9:[address] [facility] Start: 29-65-4226Iqjrbtaghe hospital visit by mbzomwsqr68/26/2025 9:40 AM EDT Hospital Encounter [facility] OR [address] [place], [place] [id number] Wm Barney MD [address] [place] [address] [address] [place] [address] [facility] ORStart: 86-04-2355Cylue BMI ScreeningAdult BMI ScreeningProMansfield Hospitalca Health SystemStart: 71-65-2397Qkxcrot ScreeningTobacco ScreeningProMansfield Hospitalca Health SystemStart: 89-12-4196XICSE-19 Vaccine ( season)COVID-19 Vaccine ( season)[facility] SystemStart: 40-05-8620Zlmqzcecx vaccinationInfluenza VaccineProMansfield Hospitalca Health SystemStart: 05-12-2025 End: 06-31-6007Hqeqagb encounter mknnzkuzr18/07/2025 2:45 PM EDT Office Visit [facility] [address] [place] [address] Margaret Weldon MD [address] [place] [id number] [facility] CardiologyStart: 23-82-5569Mbmtdihqj vaccinationFlu vaccine (#1)[facility] HospitalStart: 76-81-6993Qplspxtoztz Syncytial Virus (RSV) or age 60 yrs+ (1 - 1-dose 75+ series)Respiratory Syncytial Virus (RSV) or age 60 yrs+ (1 - 1-dose 75+ series)[facility] HospitalStart: 83-27-3721Pgofm BMI ScreeningAdult BMI ScreeningThe [facility] SystemStart: 42-01-3312Iijlugc ScreeningTobacco ScreeningCrawley Memorial Hospitaltart: 41-23-6665Leqyo BMI ScreeningAdult BMI ScreeningCrawley Memorial Hospitaltart: 69-22-9252Fmtietq ScreeningTobacco ScreeningCrawley Memorial Hospitaltart: 11-26-2024 End: 57-54-4892Rhsayfbseecoc metabolic 2000 panel - Serum or PlasmaCMP Lab Routine Essential hypertension Expected: 11/26/2024 (Approximate), Expires: 08/26/2025[facility] SystemComment on above:Expected: 11/26/2024 (Approximate), Expires: 08/26/2025Start: 11-26-2024 End: 79-44-1686Vkvjg panelLipid panel Lab Routine Mixed hyperlipidemia Expected: 11/26/2024 (Approximate), Expires: 08/26/2025[facility] Work Phone: Comment on above:Expected: 11/26/2024 (Approximate), Expires: 08/26/2025Start: 11-05-2024 End: 80-99-9566Thlkzbn encounter eokkznrxm86/31/2025 2:30 PM EST Appointment [facility] - Cardiovascular [address] [place] [address] [facility]qfErsrfoKettering [facility] - Cardiovascular Start: 11-04-2024 End: 65-51-4315Wiheday encounter /30/2025 2:45 PM EST Office Visit [facility] [address] [place] [address] Eliel Childers MD [address] [place] [address] [facility] CardiologyStart: 11-04-2024 End: 41-52-1399Dxuoqo monitor studyHolter monitor 3-5 days Cardiac Services Routine Racing heart beat Expected: 11/04/2024, Expires: 11/04/2025ProS[facility] Hospital Health SystemComment on above:Expected: 11/04/2024, Expires: 11/04/2025Start: 94-71-8457Ewweunm ScreeningTobacco ScreeningCrawley Memorial Hospitaltart: 10-25-2024 End: 83-83-3514Wkpbavxle to same day surgery qydgrj6510/25/2024 7:30 AM EST - 10/25/2024 10:30 AM EST Surgery [facility] OR [address] [place] [address] Juan Casey MD [address] [place] [address] HIP TOTAL ARTHROPLASTYNEWYORK-PRESBY[facility]IAN [facility]OSPITAL ORComment on above:HIP TOTAL ARTHROPLASTYStart: 10-25-2024 End: 62-28-0130Eintmg acetblr/prox fem prostc agrft/algrftHIP TOTAL ARTHROPLASTY Primary osteoarthritis of right hip 10/25/2024 7:30 AM [facility] HospitalStart: 67-95-4490Nyqfnngiyp hospital visit by qacnmpchi11/20/2025 7:30 AM EST Hospital Encounter [facility] OR [address] [place] [address] Juan Casey MD [address] [place] [address] [facility] ORStart: 14-37-9735Jyuoro Wellness Visit (Medicare Advantage)Annual Wellness Visit (Medicare Advantage)[facility] HospitalStart: 45-18-3400Fqcfw BMI ScreeningAdult BMI ScreeningThe [facility] SystemStart: 08-17-2024 End: 39-01-6255Xchstxg encounter qvsdswumt53/12/2024 1:30 PM EST Appointment [facility] Nuclear MedIcine [address] [facility] [address] [phone] Cross Hospital - Nuclear MedIcine Start: 08-17-2024 End: 25-23-3996Eurtozl encounter procedureProUniversity [facility]als [facility] - Nuclear MedIcineStart: 08-10-2024 End: 22-19-6742Jdiboxl encounter txaqaeoys35/05/2024 12:45 PM EST Office Visit [facility] [address] [place] [address] [place] [address] [place] [address] Domenica Aguirre MD [facility] [place] [address] [facility] Phys[facility] Genito-Urinary SurgeonsStart: 07-09-2024 End: 17-78-5019Zcxwybm encounter procedureProUniversity [facility]als [facility] - MRI ImagingStart: 06-28-2024 End: 22-92-6906LW Abdomen and Pelvis WO contrastCT abdomen and pelvis without contrast Imaging Routine Abdominal wall hernia Expected: 06/28/2024, Expires: 06/28/2025[facility] Work Phone: Comment on above:Expected: 06/28/2024, Expires: 06/28/2025Start: 97-82-6734VBPZT-19 Vaccine ()COVID-19 Vaccine ()[facility] HospitalStart: 55-21-6020YIYXY-19 Vaccine ()COVID-19 Vaccine ()[facility] HospitalStart: 00-46-0170WXINO-19 Vaccine ()COVID-19 Vaccine ()[facility] SystemStart: 37-90-1739OLDQP-19 Vaccine ()COVID-19 Vaccine ( season)[facility] Start: 54-93-9707Flvxrdfgy vaccinationInfluenza VaccineThe [facility] Start: 13-80-2541Plspgowcr vaccinationFlu vaccine (#1)[facility] Start: 59-76-9721Xchzd BMI Follow Up PlanAdult BMI Follow Up PlanCrawley Memorial Hospitaltart: 12-08-2023 End: 39-23-1186Xygpsce encounter lddpamddx04/04/2024 10:00 AM EST Office Visit [facility] Pul[facility]/Sleep [facility] [address] [place] [address] Narinder Palomo MD [address] [facility] [place], [place] [phone] (Work) [facility] Pulmonary/Sleep MedicineStart: 12-02-2023 End: 14-74-6442Zlurjtn encounter grbpmaqzr98/27/2024 11:00 AM EST Office Visit [facility] [address] [place] [address] David Ybarra MD [address] [place], [place] [phone] Sergo Sibley MD [address] [place] [address] [facility] Start: 98-61-1450Cizdjx Wellness Visit (Medicare)Annual Wellness Visit (Medicare)[facility] Hospitalart: 55-62-8259QRYXR-19 Vaccine ( season)COVID-19 Vaccine ( season)[facility] Hospitaltart: 12-93-1066Ozncfgmahw ScreeningDepression ScreeningCrawley Memorial Hospitaltart: 87-58-7788Yieimebqs vaccinationFlu vaccine (#1)[facility] Centerart: 40-28-2043Forqszedub ScreenDepression ScreenBON OHIOHEALTH VAN WERT HOSPITALStart: 85-35-0120Qybkcnkug for malignant neoplasm of breastBreast cancer screenBON SECOURS OHIOHEALTH MANSFIELD HOSPITALStealth TherapeuticsStart: 74-64-7847Dqgwjkfkm vaccinationFlu vaccine (Season Ended)[employer] Phone: start: 29-24-2151Zhiuwizy retinal examDiabetic retinal examMerMobile Active Defense Phone: comment on above:Postponed from 01/11/1960 (Not Indicated)Start: 04-10-2021 End: 49-40-4024Oykpjkl encounter abeebuemf25/06/2021 Office Visit General Surgery Jairo Fisher MD [address] [facility] [address] [place] [address] [facility] GENERAL SURGERY Part [facility] Hospitaltart: 04-04-2021 End: 55-75-2401Vttsucb encounter hxmztguhn75/30/2021 Office Visit Obstetrics and Gynecology Nevin Garcia MD [address] [address] [place] [address] [facility] OBSTETRICS & GYNECOLOGYStart: 32-18-7174Cwwoor Wellness Visit (AWV)Annual Wellness Visit (AWV)Friends[employer]ia Phone: comment on above:Postponed from 03/28/2019 (Not Indicated)Start: 56-83-3079Rduthrshmk measurementCreatinine monitoringMercy HospitalMobile Active Defense Phone: comment on above:Postponed from 11/19/2018 (Not Indicated)Start: 82-72-2812Qwgymkal foot examinationDiabetic foot examMerMobile Active Defense Phone: comment on above:Postponed from 01/11/1960 (Not Indicated)Start: 22-39-3926Otzsjrlf microalbuminuria testDiabetic microalbuminuria testMercy HospitalMobile Active Defense Phone: comyhzo on above:Postponed from 01/11/1968 (Not Indicated)Start: 52-53-4354Bdzaxzvchq A1c wwwejdroqzwE4H test (Diabetic or Prediabetic)Friendsignia Phone: comment on above:Postponed from 01/11/1960 (Not Indicated)Start: 38-53-8427Dgzqn panelLipid screenMercy Health St. [facility] Hospital MyDatingTree Phone: comment on above:Postponed from 01/11/1960 (Not Indicated)Start: 06-73-5422Emnoombia monitoringPotassium eShop VenturesMercy Health St. Charles Hospital [employer]DatingTree Phone: comment on above:Postponed from 11/19/2018 (Not Indicated)Start: 63-61-0228Jomtb cancer screen colonoscopyColon cancer screen colonoscopyMarietta Memorial Hospital: 62-45-4165Nchcdv Wellness Visit (AWV) Annual Wellness Visit (AWV)[facility]: 62-67-3620Vbconlfknu monitoringCreatinine monitoringMarietta Memorial Hospital: 05-30-6723CLU test (Diabetes, CKD 3-4, OR last GFR 15-59)GFR test (Diabetes, CKD 3-4, OR last GFR 15-59)[facility]: 55-47-9293Loaxdiihs monitoringPotassium [facility]: 07-95-5006Zdkqul cancer screenBreast cancer screenMarietta Memorial Hospital: 98-24-5390Avrddyqwopsl 65+ years Vaccine (2 of 2 - PPSV23)Pneumococcal 65+ years Vaccine (2 of 2 - PPSV23)[place], [place] Start: 16-52-9007Mgfffitl Vaccine (2 of 3)Shingles Vaccine (2 of 3)[facility]art: 00-36-2267NXSW (modify frequency per FRAX score)DEXA (modify frequency per FRAX score)[facility]: 29-80-2173Fxms Risk ScreeningFall Risk ScreeningCrawley Memorial Hospitaltart: 11-74-6332Ibepzhnnacm Syncytial Virus (RSV) or age 60 yrs+ (1 - 1-dose 60+ series)Respiratory Syncytial Virus (RSV) or age 60 yrs+ (1 - 1-dose 60+ series)[facility]: 80-08-0251Eercxpxtb for osteoporosisDEXA (modify frequency per FRAX score)[facility]ALTHStart: 92-86-2661Fmrdntbih for malignant neoplasm of colonBON [facility]ITALStart: 48-94-3280Nvqdadbvn B vaccine (1 of 3 - Risk 3-dose series)Hepatitis B vaccine (1 of 3 - Risk 3-dose series)[facility] [place], [place]: 29-28-9406Bgumamfu foot examinationDiabetic Foot ExamProAvita Health Systemtart: 17-98-7967Ikqkwckq microalbuminuria test Diabetic microalbuminuria testSelect [facility]ty [facility] [place], [place]Start: 24-51-4273Aawxokpa retinal examDiabetic retinal examBON [facility]ITALStart: 01-11-1968 Glaucoma screeningDiabetic retinal examBon Providence HospitalStart: 01-11-1968 Hepatitis C screeningHepatitis C screenBON [facility]ITALStart: 01-11-1968 Urine screening for proteinBON [facility]ITALStart: 11-07-8522ZOOAS-19 Vaccine (1)COVID-19 Vaccine (1)[facility] Work Phone: Start: 00-68-3952Vnfxeomxjo ScreenDepression ScreenBon Providence HospitalStart: 72-14-2720Jsuokfoxjo ScreeningDepression Screening [facility] Hospitaltart: 01[birth year]11-1960[object Object]Diabetic foot examSelect [facility] [place], [place]Start: 44-38-1807X6H test (Diabetic or Prediabetic)A1C test (Diabetic or Prediabetic)[facility] [place], [place]Start: 04-44-2265Zsljtltc foot examinationDiabetic foot examBON [facility]ITALStart: 73-45-1607Skfqexpg retinal examDiabetic retinal examSelect [facility] [place], [place]Start: 97-15-1495Ffdltjcqdi A1c itveebdqhlcS4W test (Diabetic or Prediabetic)[facility]ENTERStart: 67-42-0060Vpcrx panelLipidsBON [facility]ITALStart: 87-51-3183Qhpmi screen Lipid screenSelect [facility] [place], [place]Start: 70-58-0722DCKNW-19 Vaccine (1)COVID-19 Vaccine (1)[facility]ENTERStart: 75-78-5171Yegdev Wellness Visit (AWV) Annual Wellness Visit (AWV)BON reMailStart: 51-91-5840Kfpenpwq screeningDiabetic Ophthalmology ExamMercer County Community HospitalManhattan Scientifics [facility] Hospitaltart: 1950 Hepatitis C screenHepatitis C screenMercy HospitalCatalyst Biosciences JUANShiloh: 1950 Hepatitis C screeningHepatitis C screenMercy HospitalMobile Active Defense Phone: start: 1950Medicare Annual Wellness Visit Medicare Annual Wellness VisitVeterans Health Administration [employer] [facility] End: 39-93-3141Axjhopcbsiv Note: Restrict LocationAldosterone Note: Restrict Location Lab Routine 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[facility]) 1 Occurrences starting 07/30/2024 until 07/30/2025Mercer County Community HospitalChorPpayComment on above:1 Occurrences starting 07/30/2024 until 07/30/2025 End: 39-19-0472Zvljt metabolic 2000 panel - Serum or PlasmaBasic Metabolic Panel Lab Routine Essential hypertension Shortness of breath 1 Occurrences starting 07/08/2025 until 07/08/2026[facility] HospitalMitochon Systems Phone: Comment on above:1 Occurrences starting 07/08/2025 until 07/08/2026asic metabolic 2000 panel - Serum or PlasmaBasic Metabolic Panel Lab Routine Essential hypertension Shortness of breath 07/08/2025 1:38 PM [facility] End: 29-53-3824WdyhipgmThxwybov Lab Routine 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[facility]) 1 Occurrences starting 07/30/2024 until 07/30/2025Mer[facility] County Community HospitalChorPpayComment on above:1 Occurrences starting 07/30/2024 until 07/30/2025 End: 96-24-7679Fndnhoflmgyck procedure, preparation of smear, genital sourcePAP SMEAR Lab Routine Encounter for well woman exam with routine gynecological exam 1 Occurrences starting 12/06/2019 until 12/06/2019Mercy HospitalMonocle Solutions Inc.JUANComment on above:1 Occurrences starting 12/06/2019 until 12/06/2019 End: 24-24-1169Zbpcpphatwtss procedure, preparation of smear, genital sourcePAP SMEAR Lab Routine Encounter for routine gynecologic examination in Medicare patient 1 Occurrences starting 08/19/2024 until 08/19/2024on [employer] Phone: Comment on above:1 Occurrences starting 08/19/2024 until 08/19/2024 End: 39-80-0622Jojgqwg [Mass/volume] in Serum or PlasmaPOCT glucose Point of Care Testing STAT One Time for 1 Occurrences starting 04/03/2021 until 021[facility] [employer] Work Phone: comment on above:One Time for 1 Occurrences starting 04/03/2021 until 04/03/2021 End: 88-97-8022Lvdxsbl [Mass/volume] in Serum or PlasmaPOCT Glucose Point of Care Testing STAT One Time for 1 Occurrences starting 10/25/2024 until 025[facility] HealthComment on above:One Time for 1 Occurrences starting 10/25/2024 until 10/25/2024H. PYLORI DETECTIONMerProLink Solutions Work Phone: comment on above:Release Upon Ordering for 1 Occurrences starting 04/03/2021 End: 59-07-6956Ccyff 1996 panel - Serum or PlasmaLipid profile Lab Routine Essential hypertension 1 Occurrences starting 11/04/2024 until 11/04/2025 [employer] Work Phone: Comment on above:1 Occurrences starting 11/04/2024 until 11/04/2025 End: 82-39-5248Wtxchsnebgyzs, Fractionated, Free, PlasmaMetanephrines, Fractionated, Free, Plasma Lab Routine 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[facility]) 1 Occurrencesstarting 07/30/2024 until 07/30/2025ProBoard a Boat Health SystemComment on above:1 Occurrences starting 07/30/2024 until 07/30/2025 End: 11-94-3961Dagkdvc-INRProtime-INR Lab STAT One Time for 1 Occurrences starting 04/03/2021 until 04/03/2021Mercy HospitalMobile Active Defense Phone: comasrj on above:One Time for 1 Occurrences starting 04/03/2021 until 04/03/2021 End: 75-50-8937PAW [facility]PS[facility] Routine HERMILA (obstructive sleep apnea) 1 Occurrences starting 12/08/2023until 12/07/2024 [employer] Work Phone: Comment on above:1 Occurrences starting 12/08/2023 until 12/07/2024 End: 44-80-7147Gbjns ActivityRenin Activity Lab Routine 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[facility]) 1 Occurrences starting 07/30/2024 until 07/30/2025Mer[facility] County Community HospitalCHIC.TV Work Phone: Comment on above:1 Occurrences starting 07/30/2024 until 07/30/2025Surgical PathologySurgical Pathology Lab Routine Release Upon Ordering for 1 Occurrences starting 04/03/2021[facility] Work Phone: comment on above:Release Upon Ordering for 1 Occurrences starting 04/03/2021 Immunizations Immunization DateImmunizationNotesCare XcjasmbeTranutfk40-89-1254rdvpsfjae virus vaccine, unspecified formulationPari Mancini [facility] 92-97-7652ieyxibwvq virus vaccine, unspecified formulationMickey Ray MD Work Phone: [facility] HospitalMiwrur60-77-0442Inbvndcycutd Conjugate PCV 20Mattnona ANDERSON Work Phone: [facility] HospitalArehvehuod44-78-9744mxykub vaccine recombinant John ANDERSON Work Phone: [facility] HospitalSwbjtbrlph62-01-0230pqxvjb vaccine recombinant John ANDERSON Work Phone: [facility] HospitalIihybbrrmc07-67-5959Urgwthg SARS-CoV-2 VaccinationMasanjana ANDERSON Work Phone: [facility] HospitalYoodsxpusz84-80-8969Chsajje SARS-CoV-2 VaccinationMasanjana ANDERSON Work Phone: [facility] HospitalYarltpvdse37-40-2104yyvlmgaujkzg conjugate vaccine, 13 valentMasanjana ANDERSON Work Phone: [facility] HospitalCjksfaspjz75-75-9042gnassjnnvrwm conjugate vaccine, 13 valentRDickenson Community Hospital09-09-2016diphtheria, tetanus toxoids and acellular pertussis vaccineRacheTriHealth [facility], [place] 58-53-8071wwymrq vaccine, liveRachel BrooksMercy Health- [place], [place] Payers DatePayer CategoryPayerPolicy [id number] 2024MedicareANTHEM MEDICARE [employer]AGE [id number] 2023-Present [phone] [address] [place] [id number] 2024Medicare (Managed Care)[employer] [id number] 2024Medicare HMOANTHEM MEDICARE Member Subscriber Plan / Payer (Effective 2023-Present) Name: Mari Jamison Wing Relation to Subscriber: Self Name: Mari Jamison Wing Payer ID: [id number] (NAIC) Group ID: [id number] Type: Not on file Address: [address] [place] [id number] 2024Medicare [id number] 2020MedicareMEDICARE MEDICARE PART A AND B xxxxxxxxxxx 2019-Present [phone] [address] [place] [id number]pu [id number] of Veterans AffairsCHAMPVA Member Subscriber Plan / Payer (Effective 2010- Present) Name: Mari Jamison Relation to Subscriber: Self Name: Mari Jamison Payer ID: Not on file Group ID: Not on file Type: Not on file Address: [facility] [address] [place] [id number] [id number]-[id number]mgjvp3669324 ..1.163117.3.579.2.38291-56-6439Opistlj5350936 2..1.735375.3.579.2.78251-90-8059Kluhbih6167265 2..1.536003.3.579.2.48206-53-0429Dstmqlr8712684 2..1.776613.3.579.2.79164-59-8198Nutpbpx5800886 2..1.967892.3.579.2.957660-77-4214Mzbyhxm05855215 2.16.840.1.260578.3.579.2.170498-07-5348Pecbnay16354410 2.840.1.490530.3.579.2.658638-92-5666Kmwyogr39461630 2.16.840.1.795739.3.579.2.131851-58-0681Yhtogxn78445032 2.840.1.436631.3.579.2.823693-40-0437Ixyosep911927472 2.0.1.173376.3.579.2.27142-80-9427Yxssjqb349994652 2.0.1.774101.3.579.2.67812-03-1664Pgvjrrl154708768 2.0.1.551726.3.579.2.65538-09-3643Zuclhco539952507 2.0.1.263886.3.579.2.60157-98-2968Vteqdao362649008 2..1.178176.3.579.2.92692-73-7464Ewkonpv187359447 2.840.1.535747.3.579.2.19140-22-6966Nxcsrhm588346898 2.0.1.637753.3.579.2.04084-22-8001Olkbhil70160706 2.840.1.405842.3.579.2.29430-84-6191Gvzsdbj07306229 2.0.1.242484.3.579.2.62349-40-0210Bsqtbun95188584 2.840.1.674306.3.579.2.27868-95-0919Fjbronf68120385 2.840.1.280553.3.579.2.05244-16-9411Kingrah84929699 2.840.1.345312.3.579.2.72731-55-0483Erixtay041042270 2.0.1.639497.3.579.2.074932-87-6389Tbdnhut832536029 2.0.1.932176.3.579.2.513204-18-6550Ufyykdb510415176 2.0.1.804377.3.579.2.147993-53-2410Ibymudg755978342 2..1.281413.3.579.2.240935-02-4124Tormajj067727146 2..1.253672.3.579.2.007452-09-1194Tcpyccb880141009 2..1.155055.3.579.2.594162-44-4708Kwialqc718187288 2..1.684381.3.579.2.599389-82-6389Cnfocui768445931 2..1.922906.3.579.2.485074-12-9878Fjdizkv929893042 2..1.898759.3.579.2.940018-75-4501Uvgscyp117653359 2..1.355958.3.579.2.027538-55-2215Yoxkamg767649763 2..1.463053.3.579.2.609189-48-9304Feghosk852611731 2..1.427156.3.579.2.925914-56-1121Sqflzeo148784884 2.0.1.057038.3.579.2.477616-61-5724Ateoweu492282770 2.16.840.1.874424.3.579.2.887525-11-8253Ulftdov814904678 2.16840.1.032541.3.579.2.124861-94-1541Xmmdoro628053982 2.16840.1.428962.3.579.2.260257-90-5141Ecsqgwh558423025 2.840.1.839325.3.579.2.982040-79-3464Vwjqqnp226448956 2.0.1.756486.3.579.2.752853-16-4132Kxouvle520081869 2.0.1.712353.3.579.2.697670-53-9062Wmzlthb51305323 2.840.1.196952.3.579.2.809846-72-1550Bewbrcn74644288 2.0.1.859840.3.579.2.659932-37-5415Wvwlkuw36030953 2.0.1.401585.3.579.2.503217-08-9759Qwluizb24071121 2.0.1.865330.3.579.2.851892-91-0972Gorianl29855963 2.0.1.416944.3.579.2.715820-18-3547Juhmdqg32987865 2.840.1.921747.3.579.2.243636-15-0575Swiojyu88887212 2.840.1.843058.3.579.2.183950-27-4837Unmfzzz97994582 2.840.1.469791.3.579.2.695712-81-6795Wmxetpf91186968 2.840.1.944631.3.579.2.869009-28-7092Ofdznbq69951509 2..840.1.468539.3.579.2.479554-92-4248Rozdxkk72515145 2.16.840.1.947805.3.579.2.031167-05-7587Rldceka92413600 2.16.840.1.889236.3.579.2.1286MedicaidSelf [id number] Pay [id number] Social History DateTypeDetailFacilityStart: 12-06-2019 End: 98-95-5195Bvltuba smoking status NHISNever smokerMarietta Memorial Hospital: 12-06-2019 End: 00-15-1519Mbobkil intakeCurrent non-drinker of alcohol (finding)[facility]: 35-24-5940Xmw Assigned At BirthNot on [facility]: 78-08-8912Ibr Assigned [facility] Birth[facility] Start: 04-03-2021 End: 08-78-1115Ethpomo use and exposureNever usedParkview Health Bryan HospitalExposure to SARS-CoV-2 (event)Not sureRegency Hospital Toledoart: 08-19-2024 End: 85-47-1330Xof Assigned At BirthBon Providence HospitalStart: 08-19-2024 End: 35-96-6532Xicmuee of Social functionJohnston Memorial Hospitalart: 78-70-5194Yxossyk Health Questionnaire 9 item (PHQ-9) total score [Reported]0Johnston Memorial Hospitalart: 09-30-2024 End: 15-64-4247Mnydgkhib beverage intakeEx-drinker (finding)[facility] [employer] SystemStart: 11-15-2012 End: 09-51-8379CuuVzwwew (finding)[facility] SystemHow often to you have a drink containing alcohol?NeverBon Wesley [facility] HospitalStart: 10-21-2023 Alcoholic beverage intakeLifetime non-drinker (finding)[facility] HospitalStart: 41-78-2574Hjksuzv Commentcaffeine intake: occasionalNOMS Healthcare Medical Equipment Procedure CodeEquipment CodeEquipment Original TextEquipment IdentifierDatesUSE 1 UNIT SUBCUTANEOUSLY 4 TIMES DAILY DIRECTEDStart: 08-02-2024 End: 02-42-7617Srhi Srg Bard [id number] Hrn Sft Rpl [id number] - [id number] Start: 06-15-2018 Goals DatePatient GoalDesired Activity/State Clinical Notes 04-03-2021 to 07-08-2025 Note Date & TqqdUiecDrsyulji94-59-3392 History of Present illness Narrative* Bindu Kennedy MD - 07/08/2025 1:00 PM EDT Mari Jamison Date of visit: 07/08/2025 Date of : 1950 Age: 75 y.o. Patient Active Problem List Diagnosis Diabetes mellitus ([facility]) Hyperlipidemia Essential hypertension Osteoarthritis of right knee S/P right unicompartmental knee replacement Recurrent ventral hernia Pre-op testing Mixed stress and urge urinary incontinence Lumbosacral spondylosis without myelopathy Renal cyst Tachyarrhythmia Disc displacement, lumbar Recurrent UTI Chest pain, unspecified type Pre-operative cardiovascular examination Allergies Allergen Reactions Honey Swelling Penicillins Hives and Nausea Definity [Perflutren Lipid Microspheres] Current Outpatient Medications Medication Sig Dispense Refill acetaminophen (TYLENOL ARTHRITIS) 650 mg 8 hr tablet as needed. atorvastatin (LIPITOR) 20 mg tablet Take 1.5 tablets (30 mg total) by mouth in the morning. (Patient not taking: Reported on 06/20/2025) 45 tablet 6 CALCIUM ORAL Take by mouth daily. carvediloL (COREG) 25 mg tablet Take 1 tablet (25 mg total) by mouth in the morning and 1 tablet (25 mg total) before bedtime. 180 tablet 3 clotrimazole (LOTRIMIN) 1 % cream Apply to affected area 2 times daily (Patient not taking: Reported on 11/04/2024) 15 g 0 dulaglutide (TRULICITY) 0.75 mg/0.5 mL pen injector Inject under the skin every 7 days. (Patient not taking: Reported on 11/04/2024) fluticasone propionate (FLONASE) 50 mcg/actuation nasal spray Administer 1 spray into each nostril in the morning. (Patient not taking: Reported on 06/20/2025) 16 g 0 glyBURIDE (DIABETA) 5 mg [...] mellitus. miscellaneous medical supply mis 1 tablet (Patient not taking: Reported on 11/04/2024) nystatin (MYCOSTATIN) cream Apply 1 Application topically in the morning and 1 Application before bedtime. (Patient not taking: Reported on 11/04/2024) 30 g 0 pseudoephedrine-guaiFENesin (MUCINEX D) 60-600 mg per 12 hr tablet Take 1 tablet by mouth every 12 (twelve) hours. (Patient not taking: Reported on 11/04/2024) 15 tablet 0 sodium chloride (AYR) 0.65 % drops Administer 2 drops into each nostril as needed (nasal dryness). 30 mL 0 No current facility-administered medications for this visit. Chief Complaint Patient presents with Pre-op Exam PREOP CLEARANCE GLORIA TAYLOR COLONOSCOPY 07/01/25 Follow-up 6 MONTHS Hypertension Chest Pain History of Present Illness I last saw this 75-year-old 08/2024 Patient presented for preoperative risk for planned colonoscopy. She has rare chest discomfort thatshe does not associate with activity or rest. There are no provocative or palliative features She notes increasing shortness of breath over the last several months with worsening lower extremity edema. 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 She is accompanied by her CV TESTING HISTORY: ECHO: No results found. STRESS: No results found. HOLTER: No results found. CARDIAC CATH: No results found. CAROTID: No results found. CXR: No results found. Lipid Profile: Lab Results Component Value Date Cholesterol 209 (H) 11/18/2024 Cholesterol:HDL Ratio 4.4 11/18/2024 HDL Cholesterol 48 11/18/2024 Triglycerides 143 11/18/2024 LDL (calc) 132 (H) 11/18/2024 No data recorded No data recorded No data recorded EK07/08/2025 sinus rhythm with nonspecific T abnormality and poor anterior R-wave progression Past Medical History: Diagnosis Date Deep vein thrombosis ([facility]) Diabetes mellitus type 2, controlled ([facility]) GERD (gastroesophageal reflux disease) Hyperlipidemia Hypertension Renal cyst 11/16/2019 Schizophrenia simplex ([facility]) Past Surgical History: Procedure Laterality Date BACK SURGERY 2014 fatty lipoma removed from back BREAST BIOPSY Left 2006 benign CHOLECYSTECTOMY COLONOSCOPY W/ POLYPECTOMY 2014 benign CYSTOSCOPY N/A 08/05/2023 Performed by Domenica Aguirre MD at [facility] CYSTOSCOPY N/A 12/01/2018 Performed by Domenica Aguirre MD at [facility] HIP SURGERY Left INCISIONAL HERNIA REPAIR 2009, 2016 INJECTION BLOCK EPIDURAL CAUDAL STEROID N/A 06/08/2021 Performed by Km Barba MD at [facility] INJECTION BLOCK EPIDURAL CAUDAL STEROID N/A 04/27/2021 Performed by Km Barba MD at [facility] INJECTION BLOCK NERVE MEDIAL BRANCH: bilat L 4/5 5/1 mbb Bilateral 01/19/2021 Performed by Km Barba MD at [facility] INJECTION BLOCK NERVE MEDIAL BRANCH: Bilat L 5 02/03 mbb Bilateral 12/01/2020 Performed by Km Barba MD at [facility] KNEE ARTHROSCOPY Bilateral KNEE SURGERY left total knee RADIOFREQUENCY ABLATION SPINAL: left L 01/08 02/03 Left 03/09/2021 Performed by Km Barba MD at [facility] RADIOFREQUENCY ABLATION SPINAL: right L 01/08 02/03 Right 02/23/2021 Performed by Km Barba MD at [facility] REPAIR OF RECURRENT ABDOMINAL HERNIA WITH BARD SOFT MESH, EXPLANTATION OF OLD MESH, T.A.R. PROCEDURE N/A 06/15/2018 Performed by Jose Vasquez MD at [facility] REPLACEMENT TOTAL KNEE Right VAGINAL HYSTERECTOMY [...] Never Smokeless tobacco: Never Vaping Use Vaping status: Never Used Substance and Sexual Activity Alcohol use: Not Currently Drug use: No Sexual activity: Defer Other Topics Concern Caffeine Use No Social History Narrative Lives with spouse. Social Drivers of Health Financial Resource Strain: Not on file Food Insecurity: No Food Insecurity (06/20/2025) Hunger Screening Food Insecurity - Worry: Never True Food Insecurity - Inability: Never True Transportation Needs: No Transportation Needs (06/16/2025) [facility] - Transportation In the past 12 months, has lack of transportation kept you from medical appointments or from getting medications?: No In the past 12 months, has lack of transportation kept you from meetings, work, or from getting things needed for daily living?: No Physical Activity: Not on file Stress: Not on file Social Connections: Not on file Interpersonal Safety: Not on file Housing Instability: Low Risk (06/16/2025) Re[facility] Housing Stability Vital Sign Unable to Pay for Housing in the Last Year: No Number of Times Moved in the Last Year: 0 Homeless in the Last Year: No Review of Systems Review of Systems Constitutional: Negative. HENT: Positive for hearing loss. Eyes: Negative. Respiratory: Negative. Hematologic/Lymphatic: Bruises/bleeds easily. Skin: Negative. Musculoskeletal: Positive for joint pain and joint swelling. Gastrointestinal: Negative. Neurological: Positive for loss of balance and numbness. Psychiatric/Behavioral: Negative. Allergic/Immunologic: Negative. CARDIOVASCULAR: Please review HPI. Physical Examination General appearance: Alert, oriented and cooperative. In no acute distress. Pleasant, very hard of hearing Respiratory: Bilateral diminished Cardiovascular: RRR 2/6 systolic murmur Musculoskeletal: Severe bilateral edema, slightly worse on left than right (previous knee surgery/injury) VITAL SIGNS: Ht 162.6 cm (5' 4 ) BMI 32.44 kg/m No orders of the defined types were placed in this encounter. There are no discontinued medications. IMPRESSIONS/PLAN 1. Preop cardiovascular exam - POCT EKG 1. Lower extremity edema with worsening shortness of breath 2. Left heart catheterization 2013 with normal coronary arteries 3. Normal left ventricular systolic function on echocardiogram 02/2021 4. Type 2 diabetes 5. Primary hypertension --carvedilol and Prinivil 6. Hyperlipidemia associated with type 2 diabetes -patient has not been taking statin but agrees start Aspirin 81 mg daily Restart atorvastatin 40 mg daily Start Aldactone 25 mg daily Labs in now/and in 1 week /1 month/3 months Echocardiogram Lexiscan stress test TODAYS ORDERS Orders Placed This Encounter Procedures POCT EKG FOLLOW UP No follow-ups on file. PCP: [facility] Add[facility] Referring Physician: No referring provider defined for this encounter. Greater than 50 minutes spent * Dakota Douglas RN - 07/08/2025 1:00 PM EDT ++++++STRESS AND ECHO NEEDED FOR PREOP CLEARANCE+++++++ Pt did not want to schedule stress and echo in office - given central scheduling's phone number. documented in this encounterDayton [facility]10-[facility]25 Instructions* Patient Instructions* Bindu Kennedy MD - 07/08/2025 1:00 PM EDT Aspirin 81 mg daily Restart atorvastatin 40 mg daily Start Aldactone 25 mg daily Labs in now/and in 1 week /1 month/3 months Echocardiogram Lexiscan stress test documented in this encounterDayton Children's Hospital10-02-2025 Miscellaneous Notes* Telephone Encounter - Pari Mancini CMA - 07/07/2025 8:18 AM EDT Phoned pt to remind of appointment scheduled on 07/08/2025, reminded patient to bring current list of medications, photo ID, insurance card or cards,and any copays that will be due at that time. documented in this encounterDayton Children's Hospital10-02-2025 Telephone encounter Note* Telephone Encounter - Pari Mancini CMA - 07/07/2025 8:18 AM EDT Phoned pt to remind of appointment scheduled on 07/08/2025, reminded patient to bring current list of medications, photo ID, insurance card or cards,and any copays that will be due at that time. [facility] [employer] [id number] NoteMR HIP LT WO CONT Pain and weakness [...] muscle consistent with a traumatic muscle strain involvingthe gluteus medius insertion resulting in a traumatic left greater trochanter bursitis Finalized by Tato Villanueva MD on 05/05/2025 7:17 [facility] 12-31-2024 NoteAdmission Information Patient was admitted for degenerative arthritis [...] mg= 2 tabs, Oral, q8hr, PRN Prescriptions [place] 5 mg-325 mg oral tablet, 1 tabs, [...] q6, X 7 days, # 42 tabs, 0Refill(s), 01/07/25 11:41:00 EDT, Pharmacy: [id number] Orders: rivaroxaban, 1 tabs, Oral, Daily, # 12 tabs, 0 Refill(s), Pharmacy: [id number] Discharge Patient Patient Discharge Condition Stable Discharge Disposition Patient's, progress activities as tolerated. [place] for discomfort Xarelto Return to the office in 2 weeks Electronically signed by Juan Casey MD 12/31/24 11:44 [facility] 12-29-2024 NoteChief Complaint Postoperative diabetes mellitus management?consultation Assessment/Plan 74-year-old lady with past medical history of obesity/hypertension/diabetes underwent total right hip arthroplasty on the Dr. Casey?on 29 December 2024?medicine consultation requested for comanagement while in the hospital especially diabetes Active issues at this point of time are as follows ##Status post total right hip arthroplasty?Dr. Casey?29 December 2024?postop day 0?pain control/bowelregimen/OT PT/DVT prophylaxis?Xarelto 10 mg on board?cefazolin per [...] 07/14/2019 Given Comments : New Med Order (more content not included)...[facility]02-12-2025 Miscellaneous Notes* Telephone Encounter - Alvina Dale RN - 11/17/2024 11:27 AM EST Received p/c from pt requesting preop clearance and Holter results. Pt was seen by Dr. Childers 11/04/24 and clearance was dependent on Holter results. Holter results areon the chart. For some reason they didn't show up in results pool. Will message Dr. Childers for clearance since holter wasn't totally normal. Preop for hip surgery * Telephone Encounter - Eliel Childers MD - 11/17/2024 11:27 AM EST Reviewed Holter results. No further cardiac workup needed this time. Can be cleared for planned surgery as low to moderate risk. Thank you * Telephone Encounter - Alvina Dale RN - 11/17/2024 11:27 AM EST Note created and faxed [phone] documented in this encounterBrattleboro [facility] HospitalMcLem[facility]ments02-12-2025 Telephone encounter Note* Telephone Encounter - Alvina Dale RN - 11/17/2024 11:27 AM EST Received p/c from pt requesting preop clearance and Holter results. Pt was seen by Dr. Childers 11/04/24 and clearance was dependent on Holter results. Holter results areon the chart. For some reason they didn't show up in results pool. Will message Dr. Childers for clearance since holter wasn't totally normal. Preop for hip surgery [employer]02-12-2025 Telephone encounter Note* Telephone Encounter - Eliel Childers MD - 11/17/2024 11:27 AM EST Reviewed Holter results. No further cardiac workup needed this time. Can be cleared for planned surgery as low to moderate risk. Thank you [employer] Work Phone: [phone]) 128-593402-12-2025 Telephone encounter Note* Telephone Encounter - Alvina Dale RN - 11/17/2024 11:27 AM EST Note created and faxed [phone] [facility] [employer] [id number] History of Present illness Narrative* Eliel Childers MD - 11/04/2024 2:45 PM EST Mari Jamison Date of visit: 11/04/2024 Date of : 1950 Age: 74 y.o. Patient Active Problem List Diagnosis Diabetes mellitus ([facility]) Hyperlipidemia Essential hypertension Osteoarthritis of right knee S/P right unicompartmental knee replacement Recurrent ventral hernia Pre-op testing Mixed stress and urge urinary incontinence Lumbosacral spondylosis without myelopathy Renal cyst Tachyarrhythmia Disc displacement, lumbar Recurrent UTI Chest pain, unspecified type Pre-operative cardiovascular examination Allergies Allergen Reactions Honey Swelling Penicillins Hives and Nausea Definity [Perflutren Lipid Microspheres] Current Outpatient Medications Medication Sig Dispense Refill acetaminophen (TYLENOL ARTHRITIS) 650 mg 8 hr tablet as needed. CALCIUM ORAL Take by mouth daily. carvediloL (COREG) 25 mg tablet Take 1 tablet (25 mg total) by mouth in the morning and 1 tablet (25 mg total) before bedtime. 180 tablet 3 glyBURIDE (DIABETA) 5 mg tablet Take 1 tablet (5 mg total) by mouth as needed. lisinopril (PRINIVIL,ZESTRIL) 40 mg tablet Take 1 tablet (40 mg total) by mouth in the morning. metFORMIN (GLUCOPHAGE) 500 mg tablet Take 1 tablet (500 mg total) by mouth in the morning and 1 tablet (500 mg total) before bedtime. Indications: type 2 diabetes mellitus. atorvastatin (LIPITOR) 10 mg tablet Take 1 tablet (10 mg total) by mouth in the morning. (Patient not taking: Reported on 11/04/2024) 90 tablet 3 clotrimazole (LOTRIMIN) 1 % cream Apply to affected area 2 times daily (Patient not taking: Reported on 11/04/2024) 15 g 0 dulaglutide (TRULICITY) 0.75 mg/0.5 mL pen injector Inject under the skin every 7 days. (Patient not taking: Reported on 11/04/2024) miscellaneous medical supply misc 1 tablet (Patient not taking: Reported on 11/04/2024) nystatin (MYCOSTATIN) cream Apply 1 Application topically in the morning and 1 Application before bedtime. (Patient not taking: Reported on 11/04/2024) 30 g 0 pseudoephedrine-guaiFENesin (MUCINEX D) 60-600 mg per 12 hr tablet Take 1 tablet by mouth every 12 (twelve) hours. (Patient not taking: Reported on 11/04/2024) 15 tablet 0 No current facility-administered medications for this visit. Chief Complaint Patient presents with Pre-op Exam EST PT PRE OP RT HIP AND KNEE SURG, TWO DATES, DR CASEY ABN EKG SCHED W/ PT History of Present Illness Patient is here for urgent follow-up. Requesting clearance for planned hip/knee surgery. Stated that on October 25 when she went in for hip surgery her heart was racing and was told that he was in the 150s. Has been monitoring her heart rate at home and has not had any issues. Today heart rate controlled. Denied any palpitations or heart racing or dizziness or syncope or presyncope. Denied any c hest pain or shortness of breath or orthopnea or edema. Stated that she can cleaning the house, do the laundry, pushes grocery cart, load and unload heavy groceries with no shortness of breath or chest pain. Has some limitation due to underlying joint pains. No tobacco use or alcohol use or recreational drug use. Blood pressure mildly elevated today although unusual for her. Usually runs within normal limits. Patient in pain and walking into the office. Past Medical History: Diagnosis Date Deep vein thrombosis ([facility]) Diabetes mellitus type 2, controlled ([facility]) GERD (gastroesophageal reflux disease) Hyperlipidemia Hypertension Renal cyst 11/16/2019 Schizophrenia simplex ([facility]) No data recorded No data recorded No data recorded Past Surgical History: Procedure Laterality Date BACK SURGERY 2014 fatty lipoma removed from back BREAST BIOPSY Left 2006 benign CHOLECYSTECTOMY COLONOSCOPY W/ POLYPECTOMY 2014 benign CYSTOSCOPY N/A 08/05/2023 Performed by Domenica Aguirre MD at [facility] CYSTOSCOPY N/A 12/01/2018 Performed by Domenica Aguirre MD at [facility] HIP SURGERY Left INCISIONAL HERNIA REPAIR 2009, 2016 INJECTION BLOCK EPIDURAL CAUDAL STEROID N/A 06/08/2021 Performed by Km Barba MD at [facility] INJECTION BLOCK EPIDURAL CAUDAL STEROID N/A 04/27/2021 Performed by Km Barba MD at [facility] INJECTION BLOCK NERVE MEDIAL BRANCH: bilat L 4/5 5/1 mbb Bilateral 01/19/2021 Performed by Km Barba MD [facility] INJECTION BLOCK NERVE MEDIAL BRANCH: Bilat L 4/5 5/1 mbb Bilateral 12/01/2020 Performed by Km Barba MD [facility] KNEE ARTHROSCOPY Bilateral KNEE SURGERY left total knee RADIOFREQUENCY ABLATION SPINAL: left L 4/5 5/1 Left 03/09/2021 Performed by Km Barba MD at [facility] RADIOFREQUENCY ABLATION SPINAL: right L 4/5 5/1 Right 02/23/2021 Performed by Km Barba MD at [facility] REPAIR OF RECURRENT ABDOMINAL HERNIA WITH BARD SOFT MESH, EXPLANTATION OF OLD MESH, T.A.R. PROCEDURE N/A 06/15/2018 Performed by Jose Vasquez MD at [facility] REPLACEMENT TOTAL KNEE Right VAGINAL HYSTERECTOMY [...] Never Smokeless tobacco: Never Vaping Use Vaping status: Never Used Substance and Sexual Activity Alcohol use: Not Currently Drug use: No Sexual activity: Defer Other Topics Concern Caffeine Use No Social History Narrative Lives with spouse. Social Drivers of Health Financial Resource Strain: Not on file Food Insecurity: No Food Insecurity (11/04/2024) Hunger Screening Food Insecurity - Worry: Never True Food Insecurity - Inability: Never True Transportation Needs: Not on file Physical Activity: Not on file Stress: Not on file Social Connections: Not on file Interpersonal Safety: Not on file Housing Instability: Not on file Review of Systems Review of Systems Respiratory: Negative for cough, hemoptysis and wheezing. Musculoskeletal: Positive for arthritis and joint pain. Gastrointestinal: Negative for abdominal pain, change in bowel habit and hematochezia. Genitourinary: Negative for dysuria and hematuria. Neurological: Negative for focal weakness, headaches and paresthesias. CARDIOVASCULAR: Please review HPI. Physical Examination General appearance: Alert, oriented and cooperative. In no acute distress. Skin: Warm and dry to touch. Head: Normocephalic, without obvious abnormality, atraumatic. Ears, Nose, Mouth, Throat: Throat clear without erythema or exudate. Dentition intact. Eyes: Conjunctivae unremarkable, EOM intact. Neck: No JVD, No carotid bruit. Neck supple, trachea midline. Respiratory: Clear to auscultation bilaterally, no use of accessory muscles. Cardiovascular: RRR with normal S1 and S2 with no murmurs. Gastrointestinal: Soft, non-tender. Bowel sounds normal. Musculoskeletal: No peripheral edema. Neurologic: Oriented to time, person and place, affect appropriate. No focal/major motor defects noted. Psychiatric: Appropriate mood, memory and judgement. VITAL SIGNS: BP 152/84 Pulse 90 Ht 165.1 cm (5' 5 ) Wt 86.6 kg (191 lb) SpO2 97% BMI 31.78 kg/m No orders of the defined types were placed in this encounter. There are no discontinued medications. IMPRESSIONS/PLAN 1. Encounter for pre-operative cardiovascular clearance 2. Essential hypertension - Lipid profile; Future 3. Hyperlipidemia, unspecified hyperlipidemia type 4. Racing heart beat - Event monitor; Future Previous cardiac related labs and test results were reviewed and discussed with the patient. Preoperative cardiovascular risk assessment Reported heart racing Low risk SPECT with normal EF MPI 02/2021 [address] coron[address] [facility] 2013 Normal EF TTE 02/2021 Hypertension Hyperlipidemia- 02/2023: Total cholesterol 160, HDL 44, LDL 80, triglycerides 154 Diabetes mellitus type II GERD Sleep apnea/ not compliant Patient here for preoperative cardiovascular risk assessment. Reported heart rate in the 150s causing cancellation of hip surgery earlier this month. Completely asymptomatic apart from joint pain issues. Euvolemic on examination. Function status meets >= 4 METS. 5 day Holter monitor ordered to assess for any underlying arrhythmias. If unremarkable findings, can be cleared as low to moderate risk. Patient was not sure about her accurate medications list as she did not bring it with her today. Recommended the patient goes home and review her medications and call us back to ensure accuracy. No change in his made today. Lipid function test. Follow-up in 6 months or sooner if needed. Patient to call us with any cardiac questions or concerns. TODAYS ORDERS Orders Placed This Encounter Procedures Lipid profile Event monitor FOLLOW UP Return in about 6 months (around 05/04/2025). PCP: [facility] Addy Referring Physician: No referring provider defined for this encounter. documented in this encounterDayton Children's Hospital01-29-2025 Miscellaneous Notes* Telephone Encounter - Liza Aragon CMA - 11/03/2024 10:25 AM EST Called patient to remind them to bring their most current copy of their medication list with them to their appt. Patient verbalizes understanding. documented in this encounterDayton Children's Hospital01-29-2025 Telephone encounter Note* Telephone Encounter - Liza Aragon CMA - 11/03/2024 10:25 AM EST Called patient to remind them to bring their most current copy of their medication list with them to their appt. Patient verbalizes understanding. [facility]01-20-[facility] History of Present illness Narrative* Lesli Burgess APRN - CRNA - 10/25/2024 7:13 AM EST Pt arrived to preop with HR of 150 bpm and elevated BP. Pt has missed Coreg dose for two days. Pre-op EKG showed NSR with HR of 96 bpm. Pt denies chest pain and SOB. Elective surgery being cancelled and pt being sent to ED for management documented in this encounterBon [facility]01-[facility] Miscellaneous Notes* Telephone Encounter - Ana Maria Newell RN - 10/18/2024 11:43 AM EST Pt LM on 10/17/2024 at 1048 requesting to make an appt. I called pt back, no answer. Unable to LM * Telephone Encounter - Ana Maria Newell RN - 10/18/2024 11:43 AM EST Pt called left another message requesting an appt. Called pt back. She is having hip surgery on 10/21/2024, she will have a referral sent to this office and once referral is received pt is aware this office will call her for appt. documented in this encounterDayton Children's Hospital01-13-2025 Telephone encounter Note* Telephone Encounter - Ana Maria Newell RN - 10/18/2024 11:43 AM EST Pt LM on 10/17/2024 at 1048 requesting to make an appt. I called pt back, no answer. Unable to LM [facility]01-[facility] Telephone encounter Note* Telephone Encounter - Ana Maria Newell RN - 10/18/2024 11:43 AM EST Pt called left another message requesting an appt. Called pt back. She is having hip surgery on 10/21/2024, she will have a referral sent to this office and once referral is received pt is aware this office will call her for appt. [facility]12-[facility] History of Present illness Narrative* Aretha Vizcarra RN - 10/05/2024 11:00 AM EST Patient instructed on the pre-operative, intra-operative, and post-operative process. Patient instructed on NPO status. Medication instructions and pre operative instruction sheet reviewed with the patient. CHG skin prep instructions reviewed with patient. * Aretha Vizcarra RN - 10/05/2024 11:00 AM EST [facility] Preadmission Testing Name: Mari Jamison : 1950 Patient (home) Procedure Right MALIK Date of Procedure: 10/25/24 Surgeon: Juan Casey MD Ht: 162.6 cm (5' 4 ) Wt: 81.6 kg (180 lb) Wt method: Stated Allergies: Allergies Allergen Reactions Penicillins Hives and Nausea And Vomiting Honey Peanut allergy: No Vitals: 10/05/24 1125 BP: (!) 171/83 Pulse: (!) 102 Resp: 16 Temp: 97.4 F (36.3 C) SpO2: 96% No LMP recorded. Patient has had a hysterectomy. Do you take blood thinners? [x] Yes [] No Instructed to stop blood thinners prior to procedure? [x] Yes [] No [] N/A Do you have sleep apnea? [] Yes [x] No Instructed to bring CPAP machine? [] Yes [] No [x] N/A Do you have acid reflux ? [x] Yes [] No Do you have hiatal hernia? [] Yes [x] No Do you ever experience motion sickness? [x] Yes [] No Have you had a respiratory infection or sore throat in last 4 weeks before surgery? [] Yes [x] No Do you have poorly controlled asthma or COPD? [] Yes [x] No Do you have a history of angina in the last month or symptomatic arrhythmia? [] Yes [x] No Do you have significant central nervous system disease? [] Yes [x] No Have you had an EKG, labs, or chest xray in last 12 months? If yes provide copies to anesthesia [x] Yes [] No [x] Lab [x] EKG [] CXR Have you had a stress test? [x] Yes [] No When/where:patient doesn't remember Was it normal? [x] Yes [] No Do you or your family have a history of Malignant Hyperthermia? [] Yes [x] No Patient instructed on: [x] NPO Status [x] Meds to Take Day of Surgery [x] Ride Home [x]No Jewelry/Contact Lenses/Dentures day of surgery [x] Chlorhexidene PAT Call/Visit Questions Person Interviewed: Mari Relationship to Patient: Patient Surgery Time Verified: Yes Surgery Location Verified: Yes NPO Status Reinforced: Yes Ride and Caregiver Arranged: Yes Ride Caregiver Provider: Marian Charles CHG Bottle/Wipes provided with instructions for use: Yes Patient instructed on the pre-operative, intra-operative, and post-operative process? Yes Medication instructions reviewed with patient? Yes Pre operative instruction sheet reviewed and given to patient in PAT? Yes documented in this encounterBon [facility]11-[facility] History of Present illness Narrative* Bindu Kennedy MD - 08/26/2024 10:45 AM EST Mari Jamison Date of visit: 08/26/2024 Date of : 1950 Age: 74 y.o. Patient Active Problem List Diagnosis Diabetes mellitus ([facility]) Hyperlipidemia Essential hypertension Obesity, Class III, BMI 40-49.9 (morbid obesity) ([facility]) Osteoarthritis of right knee S/P right unicompartmental knee replacement Recurrent ventral hernia Pre-op testing Mixed stress and urge urinary incontinence Severe obesity (BMI 35.0-39.9) with comorbidity ([facility]) Lumbosacral spondylosis without myelopathy Renal cyst Other chest pain Tachyarrhythmia Obesity (BMI 35.0-39.9 without comorbidity) Disc displacement, lumbar Obesity (BMI 30-39.9) Recurrent UTI Chest pain, unspecified type Allergies Allergen Reactions Honey Swelling Penicillins Hives and Nausea Definity [Perflutren Lipid Microspheres] Current Outpatient Medications Medication Sig Dispense Refill acetaminophen (TYLENOL ARTHRITIS) 650 mg 8 hr tablet as needed. CALCIUM ORAL Take by mouth daily. carvediloL (COREG) 25 mg tablet Take 1 tablet (25 mg total) by mouth in the morning and 1 tablet (25 mg total) before bedtime. 180 tablet 3 clotrimazole (LOTRIMIN) 1 % cream Apply to affected area 2 times daily 15 g 0 dulaglutide (TRULICITY) 0.75 mg/0.5 mL pen injector Inject under the skin every 7 days. glyBURIDE (DIABETA) 5 mg tablet Take 1 tablet (5 mg total) by mouth as needed. lisinopril (PRINIVIL,ZESTRIL) 40 mg tablet Take 1 tablet (40 mg total) by mouth in the morning. metFORMIN (GLUCOPHAGE) 500 mg tablet Take 1 tablet (500 mg total) by mouth in the morning and 1 tablet (500 mg total) before bedtime. Indications: type 2 diabetes mellitus. miscellaneous medical supply [facility] 1 tablet nystatin (MYCOSTATIN) cream Apply 1 Application topically in the morning and 1 Application before bedtime. 30 g 0 pseudoephedrine-guaiFENesin (MUCINEX D) 60-600 mg per 12 hr tablet Take 1 tablet by mouth every 12 (twelve) hours. 15 tablet 0 atorvastatin (LIPITOR) 10 mg tablet Take 1 tablet (10 mg total) by mouth in the morning. (Patient not taking: Reported on 08/26/2024) benzonatate (TESSALON PERLES) 100 mg capsule Take 1 capsule (100 mg total) by mouth every 8 (eight)hours. (Patient not taking: Reported on 08/26/2024) 21 capsule 0 cyclobenzaprine (FLEXERIL) 10 mg tablet Take 1 tablet (10 mg total) by mouth 2 (two) times a day asneeded for muscle spasms. (Patient not taking: Reported on 08/26/2024) 10 tablet 0 diclofenac sodium (VOLTAREN) 1 % gel Apply 2 g topically in the morning and 2 g at noon and 2 g in the evening and 2 g before bedtime. (Patient not taking: Reported on 08/26/2024) 100 g 0 fluticasone propionate (FLONASE) 50 mcg/actuation nasal spray Administer 1 spray into each nostril in the morning. (Patient not taking: Reported on 08/26/2024) 16 g 0 lidocaine (LIDODERM) 5 % Place 1 patch on the skin daily. Remove & Discard patch within 12 hours or as directed by MD (Patient not taking: Reported on 08/26/2024) 30 patch 0 sodium chloride (OCEAN) 0.65 % nasal spray Administer 1 spray into each nostril as needed for congestion. (Patient not taking: Reported on 08/26/2024) 15 mL 0 triamcinolone (KENALOG) 0.1 % cream Apply 1 Application topically in the morning and 1 Application before bedtime. (Patient not taking: Reported on 08/26/2024) 30 g 0 No current facility-administered medications for this visit. Chief Complaint Patient presents with Pre-op Exam EST PT PREOP CLEARANCE DR CASEY RIGHT TOTAL HIP REPLACEMENT TBD, FORM SCANNED TO MEDIA,SCHED W/PT History of Present Illness I had the opportunity to meet this 74-year-old. She is in anticipation of hip and knee surgery. 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 She is accompanied by her CV TESTING HISTORY: ECHO: No results found. STRESS: No results found. HOLTER: No results found. CARDIAC CATH: No results found. CAROTID: No results found. CXR: X-ray chest 2 views Result Date: 07/27/2024 HISTORY: A 74 year old female with the history of the preoperative examination. EXAM/TECHNIQUE: CHEST: PA and lateral views COMPARISON: Comparison is made with the chest radiographs of 03/02/2024. FINDINGS: Both lungs and costophrenic angles are clear. There is no evidence of pulmonary infiltrate oracute pulmonary pathology. The cardiac silhouette is within normal limits. The trachea is in midline. The mediastinum is otherwise unremarkable. The hemidiaphragms are normal in position. The bony rib cage is intact. There are degenerative changes in the thoracolumbar spine. IMPRESSION: * No evidence of pulmonary infiltrate, acute pulmonary pathology or significant interval change. Finalized by Jair Sparks MD on 07/27/2024 5:20 PM Lipid Profile: Lab Results Component Value Date Cholesterol 160 02/11/2023 Cholesterol:HDL Ratio 3.6 02/11/2023 HDL Cholesterol 44 02/11/2023 Triglycerides 154 (H) 02/11/2023 LDL (calc) 85 02/11/2023 No data recorded No data recorded No data recorded EK07/27/2024 Sinus rhythm with nonspecific T-wave abnormalities Past Medical History: Diagnosis Date Deep vein thrombosis ([facility]) Diabetes mellitus type 2, controlled ([facility]) GERD (gastroesophageal reflux disease) Hyperlipidemia Hypertension Renal cyst 11/16/2019 Schizophrenia simplex [facility] [facility] Past Surgical History: Procedure Laterality Date BACK SURGERY 2014 fatty lipoma removed from back BREAST BIOPSY Left 2006 benign CHOLECYSTECTOMY COLONOSCOPY W/ POLYPECTOMY 2014 benign CYSTOSCOPY N/A 08/05/2023 Performed by Domenica Aguirre MD at [facility] CYSTOSCOPY N/A 12/01/2018 Performed by Domenica Aguirre MD at [facility] HIP SURGERY Left INCISIONAL HERNIA REPAIR 2009, 2016 INJECTION BLOCK EPIDURAL CAUDAL STEROID N/A 06/08/2021 Performed by Km Barba MD at [facility] INJECTION BLOCK EPIDURAL CAUDAL STEROID N/A 04/27/2021 Performed by Km Barba MD at [facility] INJECTION BLOCK NERVE MEDIAL BRANCH: bilat L 4/5 5/1 mbb Bilateral 01/19/2021 Performed by Km Barba MD at [facility] INJECTION BLOCK NERVE MEDIAL BRANCH: Bilat L 4/5 5/1 mbb Bilateral 12/01/2020 Performed by Km Barba MD [facility] KNEE ARTHROSCOPY Bilateral KNEE SURGERY left total knee RADIOFREQUENCY ABLATION SPINAL: left L 4/5 5/1 Left 03/09/2021 Performed by Km Barba MD at [facility] RADIOFREQUENCY ABLATION SPINAL: right L 4/5 5/1 Right 02/23/2021 Performed by Km Barba MD at [facility] REPAIR OF RECURRENT ABDOMINAL HERNIA WITH BARD SOFT MESH, EXPLANTATION OF OLD MESH, T.A.R. PROCEDURE N/A 06/15/2018 Performed by Jose Vasquez MD at [facility] REPLACEMENT TOTAL KNEE Right VAGINAL HYSTERECTOMY [...] Never Smokeless tobacco: Never Vaping Use Vaping status: Never Used Substance and Sexual Activity Alcohol use: Not Currently Drug use: No Sexual activity: Defer Other Topics Concern Caffeine Use No Social History Narrative Lives with spouse. Social Drivers of Health Financial Resource Strain: Not on file Food Insecurity: No Food Insecurity (08/26/2024) Hunger Screening Food Insecurity - Worry: Never True Food Insecurity - Inability: Never True Transportation Needs: Not on file Physical Activity: Not on file Stress: Not on file Social Connections: Not on file Interpersonal Safety: Not on file Housing Instability: Not on file Review of Systems Review of Systems Constitutional: Negative. HENT: Negative. Eyes: Negative. Cardiovascular: Negative. Vascular: Negative. Respiratory: Negative. Endocrine: Negative. Skin: Negative. Musculoskeletal: Positive for back pain, joint pain and joint swelling. Negative for muscle weakness. Gastrointestinal: Negative. Genitourinary: Negative. Neurological: Negative. Psychiatric/Behavioral: Negative. Allergic/Immunologic: Negative. CARDIOVASCULAR: Please review HPI. Physical Examination General appearance: Alert, oriented and cooperative. In no acute distress. Examined in wheelchair Skin: Warm and dry to touch. Respiratory: Bilateral diminished without rales Cardiovascular: RRR with normal S1 and S2 with no murmurs. Musculoskeletal: No peripheral edema. VITAL SIGNS: BP 146/90 (BP Site: Left Arm, BP Postition: Sitting) Pulse 80 Ht 165.1 cm (5' 5 ) Wt 81.6 kg (180 lb) SpO2 93% BMI 29.95 kg/m No orders of the defined types were placed in this encounter. There are no discontinued medications. IMPRESSIONS/PLAN There are no diagnoses linked to this encounter. 1. Low risk nuclear study 02/2021 2. Left heart catheterization 2013 with normal coronary arteries 3. Normal left ventricular systolic function on echocardiogram 02/2021 4. Type 2 diabetes 5. Primary hypertension 6. Hyperlipidemia associated with type 2 diabetes -patient ran out of statin, will restart Low risk for anticipated surgery Patient's blood pressure is elevated. This may be associated with her orthopedic pain. We discussedthat if her blood pressure is not improved after surgery she may require additional medication TODAYS ORDERS No orders of the defined types were placed in this encounter. FOLLOW UP No follow-ups on file. PCP: [facility] Add[facility] Referring Physician: No referring provider defined for this encounter. documented in this encounterDayton [facility] Hospital11-21-2024 Instructions* Patient Instructions* Bindu Kennedy MD - 08/26/2024 10:45 AM EST Restart atorvastatin 10 mg every evening Laboratory studies in 3 months documented in this encounterDayton Children's Hospital11-05-2024 History of Present illness Narrative* Domenica Aguirre MD - 08/10/2024 12:45 PM EST Images from the original note were not included. [address] [place] [address] [facility] [id number] Patient: Mari Jamison Date of : 1950 Encounter Date: 08/10/2024 History of Present Illness: The patient is a 74 y.o. female, an established patient, and is here for follow- up. She has a longstanding history of gross urinary incontinence using over 10 liners per day. Mixed by nature. Previously tried oxybutynin and Myrbetriq without benefit. Also with significant lower back issues. Patientadditionally has a history of renal cysts which were proven to be hemorrhagic/proteinaceous cysts on MRI in 2020. She was seen in June 2023 with repetitive urine infections with symptoms of dysuria pressure without hematuria. She underwent cystoscopy August 05, 2023.. She was given topical estrogen cream. She used it for a few months. She tried combination therapy again with myrbetriq and oxybutynin withno change She continues to have significant issues with her back. She sees pain management. PVR today is 0. Summary of old records: Urinalysis today: Recent Labs 08/10/24 1234 EXTPOCURBS 2+ EXTPOCUKET Negative EXTPOCUPRO Negative EXTPOCUNIT Negative EXTPOCUBLD Negative EXTPOCUPH 5.5 Last BUN and creatinine: Lab Results Component Value Date BUN 22 07/27/2024 Lab Results Component Value Date CREATININE 0.73 07/27/2024 Last PSA: No results found for: PSA No results found for: PROSTATICSP Additional Lab/Culture results: None Imaging Reviewed during this Office Visit: None (Results were independently reviewed by physician and radiology report verified) Past Medical, Family, and Social History Update: The following portions of the patient's history were reviewed and updated as appropriate: allergies, current medications, past family history, past medical history, past social history, past surgicalhistory and problem list. Past Medical History: Diagnosis Date Deep vein thrombosis ([facility]) Diabetes mellitus type 2, controlled ([facility]) GERD (gastroesophageal reflux disease) Hyperlipidemia Hypertension Renal cyst 11/16/2019 Schizophrenia simplex ([facility]) Past Surgical History: Procedure Laterality Date BACK SURGERY 2014 fatty lipoma removed from back BREAST BIOPSY Left 2006 benign CHOLECYSTECTOMY COLONOSCOPY W/ POLYPECTOMY 2014 benign CYSTOSCOPY N/A 08/05/2023 Performed by Domenica Aguirre MD at [facility] CYSTOSCOPY N/A 12/01/2018 Performed by Domenica Aguirre MD at [facility] HIP SURGERY Left INCISIONAL HERNIA REPAIR 2009, 2016 INJECTION BLOCK EPIDURAL CAUDAL STEROID N/A 06/08/2021 Performed by Km Barba MD at [facility] INJECTION BLOCK EPIDURAL CAUDAL STEROID N/A 04/27/2021 Performed by Km Barba MD at [facility] INJECTION BLOCK NERVE MEDIAL BRANCH: bilat L 4/5 5/1 mbb Bilateral 01/19/2021 Performed by Km Barba MD at [facility] INJECTION BLOCK NERVE MEDIAL BRANCH: Bilat L 4/5 5/1 mbb Bilateral 12/01/2020 Performed by Km Barba MD at [facility] KNEE ARTHROSCOPY Bilateral KNEE SURGERY left total knee RADIOFREQUENCY ABLATION SPINAL: left L 4/5 5/1 Left 03/09/2021 Performed by Km Barba MD at [facility] RADIOFREQUENCY ABLATION SPINAL: right L 4/5 5/1 Right 02/23/2021 Performed by Km Barba MD at [facility] REPAIR OF RECURRENT ABDOMINAL HERNIA WITH BARD SOFT MESH, EXPLANTATION OF OLD MESH, T.A.R. PROCEDURE N/A 06/15/2018 Performed by Jose Vasquez MD at [facility] REPLACEMENT TOTAL KNEE Right VAGINAL HYSTERECTOMY [...] Neg Hx [place] Breast Cancer Neg Hx Current Outpatient Medications Medication Sig Dispense Refill acetaminophen (TYLENOL ARTHRITIS) 650 mg 8 hr tablet as needed. atorvastatin (LIPITOR) 10 mg tablet Take 1 tablet (10 mg total) by mouth in the morning. benzonatate (TESSALON PERLES) 100 mg capsule Take 1 capsule (100 mg total) by mouth every 8 (eight)hours. 21 capsule 0 CALCIUM ORAL Take by mouth daily. carvediloL (COREG) 25 mg tablet Take 1 tablet (25 mg total) by mouth in the morning and 1 tablet (25 mg total) before bedtime. 180 tablet 3 clotrimazole (LOTRIMIN) 1 % cream Apply to affected area 2 times daily 15 g 0 cyclobenzaprine (FLEXERIL) 10 mg tablet Take 1 tablet (10 mg total) by mouth 2 (two) times a day asneeded for muscle spasms. 10 tablet 0 diclofenac sodium (VOLTAREN) 1 % gel Apply 2 g topically in the morning and 2 g at noon and 2 g in the evening and 2 g before bedtime. 100 g 0 dulaglutide (TRULICITY) 0.75 mg/0.5 mL pen injector Inject under the skin every 7 days. fluticasone propionate (FLONASE) 50 mcg/actuation nasal spray Administer 1 spray into each nostril in the morning. 16 g 0 glyBURIDE (DIABETA) 5 mg tablet Take 1 tablet (5 mg total) by mouth as needed. lidocaine (LIDODERM) 5 % Place 1 patch on the skin daily. Remove & Discard patch within 12 hours or as directed by MD 30 patch 0 lisinopril (PRINIVIL,ZESTRIL) 40 mg tablet Take 1 tablet (40 mg total) by mouth in the morning. metFORMIN (GLUCOPHAGE) 500 mg tablet Take 1 tablet (500 mg total) by mouth in the morning and 1 tablet (500 mg total) before bedtime. Indications: type 2 diabetes mellitus. miscellaneous medical [place] [facility] 1 tablet nystatin (MYCOSTATIN) cream Apply 1 Application topically in the morning and 1 Application before bedtime. 30 g 0 pseudoephedrine-guaiFENesin (MUCINEX D) 60-600 mg per 12 hr tablet Take 1 tablet by mouth every 12 (twelve) hours. 15 tablet 0 sodium chloride (OCEAN) 0.65 % nasal spray Administer 1 spray into each nostril as needed for congestion. 15 mL 0 triamcinolone (KENALOG) 0.1 % cream Apply 1 Application topically in the morning and 1 Application before bedtime. 30 g 0 No current facility-administered medications for this visit. (All medications reviewed and updated by provider since last office visit or hospitalization) Allergies: Honey, Penicillins, and Definity [perflutren lipid microspheres] Tobacco History: Social History Tobacco Use Smoking Status Never Smokeless Tobacco Never (If patient a smoker, smoking cessation counseling offered) Social History: Social History Substance and Sexual Activity Alcohol Use Not Currently Review of Systems: General: Negative for chills and fever. Cardiovascular: Negative for chest pain and shortness of breath. Gastrointestinal: Negative for constipation, diarrhea, nausea, and vomitting. Physical Exam: BP 152/87 Pulse 104 Ht 165.1 cm (5' 5 ) Wt 76.2 kg (168 lb) BMI 27.96 kg/m Assessment and Plan: Mari was seen today for urinary incontinence. Diagnoses and all orders for this visit: Mixed stress and urge urinary incontinence - Measure post void residual - POCT Urinalysis Auto, W/O Microscopy Problem List Genitourinary Mixed stress and urge urinary incontinence - Primary Overview Mixed urinary incontinence; worsening Tried oxybutynin 10 [...] management and is going to see neurosurgery. Relevant Orders Measure post void residual (Completed) POCT Urinalysis Auto, W/O Microscopy (Completed) Follow-up: Domenica Aguirre MD This note was created with the assistance of a speech recognition program. While intending to generate a timely document that accurately reflects the content of the visit, no guarantee can be provided that every grammatical or spelling mistake has been or will be identified or corrected. Thank you for your understanding. documented in this encounterDayton Children's Hospital10-28-2024 Miscellaneous Notes* Telephone Encounter - Marla Banks CMA - 08/02/2024 1:35 PM EDT ----- Message from Dr. Mickey Ray MD sent at 07/30/2024 12:25 PM EDT ----- Regarding: CT scan results Let patient know that I reviewed her CT scan. There was no evidence of hernia based on CT. There was an incidental finding of a left adrenal lesion, this is likely benign. However lab work is recommended to make sure it is not secreting any hormones. I put in for serum aldosterone, renin, catecholamines and cortisol. She needs to take 1 mg of dexamethasone, which I have sent her pharmacy, at 11:00 p.m. the night before her lab work. Thank you ----- Message ----- From: Interface - Rad Results/Orders In 1 Sent: 07/28/2024 8:17 AM EDT To: Mickey Ray MD * Telephone Encounter - Marla Banks CMA - 08/02/2024 1:35 PM EDT Spoke with patient's spouse Melvin. Melvin informed me that patient is currently in [facility] and that she would call me for the results once she is discharged. documented in this encounterDayton Children's Hospital10-28-2024 Telephone encounter Note* Telephone Encounter - Marla Banks CMA - 08/02/2024 1:35 PM EDT ----- Message from Dr. Mickey Ray MD sent at 07/30/2024 12:25 PM EDT ----- Regarding: CT scan results Let patient know that I reviewed her CT scan. There was no evidence of hernia based on CT. There was an incidental finding of a left adrenal lesion, this is likely benign. However lab work is recommended to make sure it is not secreting any hormones. I put in for serum aldosterone, renin, catecholamines and cortisol. She needs to take 1 mg of dexamethasone, which I have sent her pharmacy, at 11:00 p.m. the night before her lab work. Thank you ----- Message ----- From: Interface - Rad Results/Orders In 1 Sent: 07/28/2024 8:17 AM EDT To: Mickey Ray MD [facility]10-28-[facility] Telephone encounter Note* Telephone Encounter - Marla Banks CMA - 08/02/2024 1:35 PM EDT Spoke with patient's spouse Melvin. Melvin informed me that patient is currently in [facility] and that she would call me for the results once she is discharged. [facility]10-27-[facility] History of Present illness Narrative* Tito Jarrell RN - 08/01/2024 4:26 PM EDT Pt currently in [facility] ED being seen. Received request for medical records from previous visit to [facility].Signed copy of release of medical records form received and requested records faxed to [facility] ED. documented in this encounterDayton Children's Hospital09-23-2024 History of Present illness Narrative* Mickey Ray MD - 06/28/2024 2:00 PM EDT Images from the original note were not included. Chief Complaint: Possible hernia recurrence History of Present Illness: Mari Jamison is a 74 y.o. female presents to the office due to concerns for possible hernia recurrence. One year ago, she noticed her upper abdomen. She reports history of multiple hernia repairs, the last of which, a [facility], she underwent open incisional hernia repair with mesh withposterior component separation/tar. She reports that she notices the bulge when she was laying downrather than when she was standing up. She was worried about a hernia recurrence. She notes pain in her upper abdomen. She denies any GI symptoms. HPI Review of Systems Constitutional: Negative for fever and chills. Respiratory: Negative for shortness of breath. Cardiovascular: Negative for chest pain and palpitations. Gastrointestinal: Positive for abdominal pain. Negative for nausea and vomiting. Abdominal bulge Genitourinary: Negative for dysuria and difficulty urinating. Skin: Negative for rash and wound. Allergic/Immunologic: Negative for immunocompromised state. Neurological: Negative for weakness and light-headedness. Hematological: Does not bruise/bleed easily. Psychiatric/Behavioral: Negative for behavioral problems and confusion. Past Medical History: Diagnosis Date Deep vein thrombosis ([facility]) Diabetes mellitus type 2, controlled ([facility]) GERD (gastroesophageal reflux disease) Hyperlipidemia Hypertension Renal cyst 11/16/2019 Schizophrenia simplex ([facility]) Past Surgical History: Procedure Laterality Date BACK SURGERY 2014 fatty lipoma removed from back BREAST BIOPSY Left 2006 benign CHOLECYSTECTOMY COLONOSCOPY W/ POLYPECTOMY 2014 benign CYSTOSCOPY N/A 08/05/2023 Performed by Domenica Aguirre MD at [facility] CYSTOSCOPY N/A 12/01/2018 Performed by Domenica Aguirre MD at [facility] HIP SURGERY Left INCISIONAL HERNIA REPAIR 2016 INJECTION BLOCK EPIDURAL CAUDAL STEROID N/A 06/08/2021 Performed by Km Barba MD at [facility] INJECTION BLOCK EPIDURAL CAUDAL STEROID N/A 04/27/2021 Performed by Km Barba MD at [facility] INJECTION BLOCK NERVE MEDIAL BRANCH: bilat L 4/5 5/1 mbb Bilateral 01/19/2021 Performed by Km Barba MD at [facility] INJECTION BLOCK NERVE MEDIAL BRANCH: Bilat L 4/5 5/1 mbb Bilateral 12/01/2020 Performed by Km Barba MD at [facility] KNEE ARTHROSCOPY Bilateral KNEE SURGERY left total knee RADIOFREQUENCY ABLATION SPINAL: left L 4/5 5/1 Left 03/09/2021 Performed by Km Barba MD at [facility] RADIOFREQUENCY ABLATION SPINAL: right L 4/5 5/1 Right 02/23/2021 Performed by Km Barba MD at [facility] REPAIR OF RECURRENT ABDOMINAL HERNIA WITH BARD SOFT MESH, EXPLANTATION OF OLD MESH, T.A.R. PROCEDURE N/A 06/15/2018 Performed by Jose Vasquez MD at [facility] REPLACEMENT TOTAL KNEE Right VAGINAL HYSTERECTOMY 1976 menorrhagia Allergies Allergen Reactions Honey Swelling Penicillins Hives and Nausea Definity [Perflutren Lipid Microspheres] Current Outpatient Medications: acetaminophen (TYLENOL ARTHRITIS) 650 mg 8 hr tablet, as needed. , Disp: , Rfl: atorvastatin (LIPITOR) 10 mg tablet, Take 1 tablet (10 mg total) by mouth in the morning., Disp: , Rfl: benzonatate (TESSALON PERLES) 100 mg capsule, Take 1 capsule (100 mg total) by mouth every 8 (eight) hours., Disp: 21 capsule, Rfl: 0 CALCIUM ORAL, Take by mouth daily., Disp: , Rfl: carvediloL (COREG) 25 mg tablet, Take 1 tablet (25 mg total) by mouth in the morning and 1 tablet (25 mg total) before bedtime., Disp: 180 tablet, Rfl: 3 clotrimazole (LOTRIMIN) 1 % cream, Apply to affected area 2 times daily, Disp: 15 g, Rfl: 0 dulaglutide (TRULICITY) 0.75 mg/0.5 mL pen injector, Inject under the skin every 7 days., Disp: , Rfl: fluticasone propionate (FLONASE) 50 mcg/actuation nasal spray, Administer 1 spray into each nostrilin the morning., Disp: 16 g, Rfl: 0 glyBURIDE (DIABETA) 5 mg tablet, Take 1 tablet (5 mg total) by mouth as needed., Disp: , Rfl: lidocaine (LIDODERM) 5 %, Place 1 patch on the skin daily. Remove & Discard patch within 12 hours or as directed by MD, Disp: 30 patch, Rfl: 0 lisinopril (PRINIVIL,ZESTRIL) 40 mg tablet, Take 1 tablet (40 mg total) by mouth in the morning., Disp: , Rfl: metFORMIN (GLUCOPHAGE) 500 mg tablet, Take 1 tablet (500 mg total) by mouth in the morning and 1 tablet (500 mg total) before bedtime. Indications: type 2 diabetes mellitus., Disp: , Rfl: miscellaneous medical [place] [facility], 1 tablet, Disp: , Rfl: naproxen (NAPROSYN) 375 mg tablet, Take 1 tablet (375 mg total) by mouth in the morning and 1 tablet (375 mg total) in the evening. Take with meals. Do all this for 7 days., Disp: 14 tablet, Rfl: 0 nystatin (MYCOSTATIN) cream, Apply 1 Application topically in the morning and 1 Application before bedtime., Disp: 30 g, Rfl: 0 pseudoephedrine-guaiFENesin (MUCINEX D) 60-600 mg per 12 hr tablet, Take 1 tablet by mouth every 12(twelve) hours., Disp: 15 tablet, Rfl: 0 sodium chloride (OCEAN) 0.65 % nasal spray, Administer 1 spray into each nostril as needed for congestion., Disp: 15 mL, Rfl: 0 triamcinolone (KENALOG) 0.1 % cream, Apply 1 Application topically in the morning and 1 Applicationbefore bedtime., Disp: 30 g, Rfl: 0 Social History Socioeconomic History Marital status: Spouse name: Not on file Number of children: Not on file Years of education: Not on file Highest education level: Not on file Occupational History Not on file Tobacco Use Smoking status: Never Smokeless tobacco: Never Vaping Use Vaping status: Never Used Substance and Sexual Activity Alcohol use: Not Currently Drug use: No Sexual activity: Defer Other Topics Concern Caffeine Use No Social History Narrative Lives with spouse. Social Determinants of Health Financial Resource Strain: Not on file Food Insecurity: No Food Insecurity (06/24/2024) Hunger Screening Food Insecurity - Worry: Never True Food Insecurity - Inability: Never True Transportation Needs: Not on file Physical Activity: Not on file Stress: Not on file Social Connections: Not on file Interpersonal Safety: Not on file Housing Instability: Not on file Family History Problem Relation Age of Onset Breast cancer Mother unk age Lung disease Mother Breast cancer Sister unk age Diabetes Maternal Grandmother Bleeding Disorder Neg Hx Clotting disorder Neg Hx Anesthesia problems Neg Hx Ovarian cancer Neg Hx Colon cancer Neg Hx Heart attack Neg Hx Stroke Neg Hx [place] Breast Cancer Neg Hx Physical Exam Vitals reviewed. Constitutional: Appearance: Normal appearance. HENT: Head: Normocephalic and atraumatic. Eyes: Pupils: Pupils are equal, round, and reactive to light. Cardiovascular: Rate and Rhythm: Normal rate. Pulmonary: Effort: Pulmonary effort is normal. Abdominal: General: There is no distension. Palpations: Abdomen is soft. Tenderness: There is no abdominal tenderness. Hernia: No hernia is present. Comments: No hernia identified Diastasis recti noted Musculoskeletal: General: No swelling. Skin: General: Skin is warm and dry. Neurological: Mental Status: She is alert and oriented to person, place, and time. Mental status is at baseline. Psychiatric: Mood and Affect: Mood normal. Behavior: Behavior normal. Vital Signs: Height 165.1 cm (5' 5 ), weight 76.7 kg (169 lb 3.2 oz). Respiratory Source: No data recorded Admission Weight: Weight: 76.7 kg (169 lb 3.2 oz) Labs: Lab Results Component Value Date WBC 6.2 09/24/2023 HGB 12.9 09/24/2023 HCT 39.1 09/24/2023 MCV 86 09/24/2023 PLT 219 09/24/2023 Lab Results Component Value Date GLU 202 (H) 09/24/2023 CALCIUM 9.3 09/24/2023 K 3.8 09/24/2023 CO2 26 09/24/2023 CL 102 09/24/2023 BUN 13 09/24/2023 CREATININE 0.64 09/24/2023 No results found for: AMYLASE Lab Results Component Value Date LIPASE 29 09/19/2021 Lab Results Component Value Date ALT 18 07/01/2023 AST 19 07/01/2023 ALKPHOS 58 07/01/2023 Lab Results Component Value Date INR 1.1 06/26/2023 PROTIME 12.3 06/26/2023 Imaging: CT abdomen pelvis performed on 07/10/2023 showed no evidence of hernia recurrence. Operative report from [address] Meredith was reviewed repair of recurrent abdominal wall hernia withmesh, explantation of old mesh, tar procedure, 30 x 30 Bard mesh placed in the retrorectus space Assessment: Mrai Jamison is a 74 y.o.female with concerns for recurrent hernia. I did not feel a hernia on exam. I did explain that she does have some weakness of her upper abdominal wall. Abdominal wall hernia [K43.9] Plan: She was still concerned about hernia recurrence despite reassurance. Obtain CT scan of the abdomen pelvis without contrast to rule out occult hernia Evaluation included: Preparing to see the patient (e.g., review of tests) Obtaining and/or reviewing separately obtained history Performing a medically appropriate examination and/or evaluation Counseling and educating the patient/family/caregiver Referring and communicating with other health client care coordinator Mickey Ray MD [facility] General Surgery [place] documented in this encounterDayton Children's Hospital03-06-2024 Miscellaneous Notes* Telephone Encounter - Radha Anshul - 12/10/2023 9:50 AM EST 3/ received PSG order 12/09 patient will call back to schedule, sent letter with main phone number. Order Deferred PSG order and 3/4 Taleb notes in epic documented in this encounterDayton Children's Hospital03-06-2024 Telephone encounter Note* Telephone Encounter - Radha GrafNeil - 12/10/2023 9:50 AM EST 3/ received PSG order 3 patient will call back to schedule, sent letter with main phone number. Order Deferred PSG order and 3/4 Taleb notes in epic [facility]03-04-2024 History of Present illness Narrative* Narinder Palomo MD - 12/08/2023 10:00 AM EST Images from the original note were not included. [facility] PULMONARY/SLEEP MEDICINE [address] [place] [phone] Subjective: Chief Complaint Pulmonary nodules HPI The patient is 73-year-old female who is here as a new patient. She was referred to us because of abnormal CT scan of the chest. She hadCT scan of the chest that was done in [facility] on 11[facility]18[facility]2023 showed multiple bilateral [...] Medical History: Diagnosis Date Deep vein thrombosis ([facility]) Diabetes mellitus type 2, controlled ([facility]) GERD (gastroesophageal reflux disease) Hyperlipidemia Hypertension Renal cyst 11/16/2019 Schizophrenia simplex ([facility]) Past Surgical History: Procedure Laterality Date BACK SURGERY 2014 fatty lipoma removed from back BREAST BIOPSY Left 2006 benign CHOLECYSTECTOMY COLONOSCOPY W/ POLYPECTOMY 2014 benign CYSTOSCOPY N/A 08/05/2023 Performed by Domenica Aguirre MD at [facility] CYSTOSCOPY N/A 12/01/2018 Performed by Domenica Aguirre MD at [facility] HIP SURGERY Left INCISIONAL HERNIA REPAIR 2009, 2016 INJECTION BLOCK EPIDURAL CAUDAL STEROID N/A 06/08/2021 Performed by Km Barba MD at [facility] INJECTION BLOCK EPIDURAL CAUDAL STEROID N/A 04/27/2021 Performed by Km Barba MD at [facility] INJECTION BLOCK NERVE MEDIAL BRANCH: bilat L 4/5 5/1 mbb Bilateral 01/19/2021 Performed by Km Barba MD at [facility] INJECTION BLOCK NERVE MEDIAL BRANCH: Bilat L 4/5 5/1 mbb Bilateral 12/01/2020 Performed by Km Barba MD at [facility] KNEE ARTHROSCOPY Bilateral KNEE SURGERY left total knee RADIOFREQUENCY ABLATION SPINAL: left L 4/5 5/1 Left 03/09/2021 Performed by Km Barba MD at [facility] RADIOFREQUENCY ABLATION SPINAL: right L 4/5 5/1 Right 02/23/2021 Performed by Km Barba MD at [facility] REPAIR OF RECURRENT ABDOMINAL HERNIA WITH BARD SOFT MESH, EXPLANTATION OF OLD MESH, T.A.R. PROCEDURE N/A 06/15/2018 Performed by Jose Vasquez MD at [facility] SURGERY REPLACEMENT TOTAL KNEE Right VAGINAL [...] this note were generated using voice recognition [employer] dictation software. Although every effort was made to ensure the accuracy of this automated sluice tender, some errors in sluice tender may have occurred. documented in this encounterBrattleboro Memorial HospitalMcLemore Investments02-27-2024 History of Present illness Narrative* Sergo Sibley MD - 12/02/2023 11:00 AM EST Mari Rodriguezgo Date of visit: 12/02/2023 Date of : 1950 Age: 73 y.o. Patient Active Problem List Diagnosis Diabetes mellitus ([facility]) Hyperlipidemia Essential hypertension Obesity, Class III, BMI 40-49.9 (morbid obesity) ([facility]) Osteoarthritis of right knee S/P right unicompartmental knee replacement Recurrent ventral hernia Pre-op testing Mixed stress and urge urinary incontinence Severe obesity (BMI 35.0-39.9) with comorbidity ([facility]) Lumbosacral spondylosis without myelopathy Renal cyst Other [...] (100 mg total) by mouth every 8 (eight)hours. 21 capsule 0 CALCIUM ORAL Take by [...] type 2 diabetes mellitus. miscellaneous medical [facility] 1 tablet pseudoephedrine-guaiFENesin (MUCINEX D) 60-600 mg [...] antihypertensives this morning. Systolic blood pressures been [address]397 mmHg at home. She actually physically feels well. She has been stressed out about her who has cognitive issues. No orthopnea. No PND. Past Medical History: Diagnosis Date Deep vein thrombosis ([facility]) Diabetes mellitus type 2, controlled ([facility]) GERD (gastroesophageal reflux disease) Hyperlipidemia Hypertension Renal cyst 11/16/2019 Schizophrenia simplex ([facility]) No data recorded No data recorded No data recorded Past Surgical History: Procedure Laterality Date BACK SURGERY 2014 fatty lipoma removed from back BREAST BIOPSY Left 2006 benign CHOLECYSTECTOMY COLONOSCOPY W/ POLYPECTOMY 2014 benign CYSTOSCOPY N/A 08/05/2023 Performed by Domenica Aguirre MD at [facility] CYSTOSCOPY N/A 12/01/2018 Performed by Domenica Aguirre MD at [facility] HIP SURGERY Left INCISIONAL HERNIA REPAIR 2009, 2016 INJECTION BLOCK EPIDURAL CAUDAL STEROID N/A 06/08/2021 Performed by Km Babra MD at [facility] INJECTION BLOCK EPIDURAL CAUDAL STEROID N/A 04/27/2021 Performed by Km Barba MD at [facility] INJECTION BLOCK NERVE MEDIAL BRANCH: bilat L 4/5 5/1 mbb Bilateral 01/19/2021 Performed by Km Barba MD at [facility] INJECTION BLOCK NERVE MEDIAL BRANCH: Bilat L 4/5 5/1 mbb Bilateral 12/01/2020 Performed by Km Barba MD [facility] KNEE ARTHROSCOPY Bilateral KNEE SURGERY left total knee RADIOFREQUENCY ABLATION SPINAL: left L 4/5 5/1 Left 03/09/2021 Performed by Km Barba MD at [facility] RADIOFREQUENCY ABLATION SPINAL: right L 4/5 5/1 Right 02/23/2021 Performed by Km Barba MD at [facility] REPAIR OF RECURRENT ABDOMINAL HERNIA WITH BARD SOFT MESH, EXPLANTATION OF OLD MESH, T.A.R. PROCEDURE N/A 06/15/2018 Performed by Jose Vasquez MD at [facility] SURGERY REPLACEMENT TOTAL KNEE Right VAGINAL [...] Ht 162.6 cm (5' 4 ) Wt 90.7kg (200 lb) SpO2 96% BMI 34.33 kg/m [...] 02/2021 2. Normal coronaries [facility] 2013 3. Normal EF TTE 02/2021 [...] DO Referring Physician: Gloria Taylor DO [address] [place] [address] documented in this encounterBrattleboro Memorial HospitalMcLemore Investments02-26-2024 Miscellaneous Notes* Telephone Encounter - Pari Mancini CMA - 12/01/2023 10:05 AM EST Called patient to remind them to bring their most current copy of their medication list with them to their appt. Patient verbalizes understanding. [facility] Telephone encounter Note* Telephone Encounter - Pari Mancini CMA - 12/01/2023 10:05 AM EST Called patient to remind them to bring their most current copy of their medication list with them to their appt. Patient verbalizes understanding. [facility]02-06-2024 Miscellaneous Notes* Telephone Encounter - Sophia Quispe - 11/11/2023 3:30 PM EST The nurse called back about this patient she said the patient had a ct chest at [facility] and she was going to fax the report over. documented in this encounterDayton [facility]02-[facility] Telephone encounter Note* Telephone Encounter - Sophia Quispe - 11/11/2023 3:30 PM EST The nurse called back about this patient she said the patient had a ct chest at [facility] and she was going to fax the report over. [facility]08-24-2022 Evaluation note* Encounter Date Diagnosis Assessment Notes Treatment Notes Treatment Clinical Notes May, Spinal stenosis of l umbar region with neurogenic claudication (ICD- 10 - M48.062) May,pondylolisthesis, lumbar region (ICD-10 - M43.16)Patient does not really have symptoms of spinal [...] have a repeat evaluation with plain x-rays flexion-extension views and lumbar MRI.It just does not seemed warranted at this time.We will see her back on an as-needed basis or is symptoms worsen. [employer] Other 06-29-2021 History of Present illness Narrative* [...] a responsible adult. Yes documented in this encounterFriendsignia Phone: evaluation note* Diagnosis GERD (gastroesophageal reflux disease)- Primary Esophageal reflux documented in this encounter [employer] Phone: evaluation note* Diagnosis Encounter for routine gynecologic examination in Medicare patient documented in this encounter [facility] note* Diagnosis Encounter for pre-operative cardiovascular clearance- Primary Essential hypertension Unspecified essential hypertension Hyperlipidemia, unspecified hyperlipidemia type Racing heart beat Unspecified tachycardia documented in this encounter [facility]* Diagnosis Other chest pain- Primary Essential hypertension Unspecified essential hypertension documented in this encounter [facility]* Diagnosis Pulmonary nodule- Primary Other diseases of lung, not elsewhere classified HERMILA (obstructive sleep apnea) Obstructive sleep apnea (adult) (pediatric) Obesity (BMI 30-39.9) documented in this encounter [facility]* Diagnosis Abdominal wall hernia- Primary Unspecified ventral hernia without mention of obstruction or gangrene documented in this encounter [facility]* Diagnosis 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[facility] Primary documented in this encounter [facility]* Diagnosis Mixed stress and urge urinary incontinence- Primary Mixed incontinence urge and stress (male)(female) documented in this encounter [facility]* Diagnosis Essential hypertension- Primary Unspecified essential hypertension Pre-operative cardiovascular examination Mixed hyperlipidemia documented in this encounter [facility]* Diagnosis Pre-op testing Preoperative examination, unspecified Chronic abdominal pain- Primary Abdominal pain, unspecified site Chronic abdominal pain Abdominal pain, unspecified site [facility] this encounter [facility]* Diagnosis Preop cardiovascular exam- Primary Pre-operative cardiovascular examination Pre-operative cardiovascular examination Mixed hyperlipidemia Essential hypertension Unspecified essential hypertension Chest pain, unspecified type Hyperlipidemia, unspecified hyperlipidemia type Shortness of breath documented in this encounter [facility] SystemHistory general Narrative - Reported* Type Description Date Medical History GERD Medical HistoryHTNMedical Historyhistory of DVTSurgical HistoryLIPOMASurgical Historyventral [id number] Historyright incisional herniaSurgical HistoryRT KNEE REPLACEMENTSurgical HistoryHERNIA REPAIRSurgical Historylap choleySurgical HistoryCHOLECYSTECTOMYSurgical Historylipoma backSurgical History right total knee replacementSurgical HistoryhysterectomyHospitalization History See Sx Hx [employer] Other Hospital Discharge instructions* Instructions* Rimma Monroe [...] the nearest Emergency Room. documented in this encounterMercy HospitalMobile Active Defense Phone: InstructionsNot on filedocumented in this encounter [facility]InstructionsNot on filedocumented in this encounter [facility] SystemInstructionsNot on filedocumented in this encounter [facility] SystemInstructionsNot on filedocumented in this encounter [facility]InstructionsNot on filedocumented in this encounter [facility]InstructionsNot on filedocumented in this encounter [facility]InstructionsNot on filedocumented in this encounter [facility]InstructionsNot on filedocumented in this encounter [facility]InstructionsNot on filedocumented in this encounter [facility] SystemInstructionsNot on filedocumented in this encounter [facility] SystemInstructionsNot on filedocumented in this encounter [facility] SystemInstructionsNot on filedocumented in this encounter [facility] SystemReason for visit Narrative* Outpatient Service (Routine) - Pending ReviewSpecialtyDiagnoses / ProceduresReferred By ContactReferred To ContactCardiology Diagnoses Pre-op testing Procedures EKG 12 Lead Toribio, Brittney Mchugh, DESIGN PROJECT MANAGER - FIRE EXTINGUISHER MECHANIC [address] [facility] [address] [place] [address] Phone: tel: fax: Referral IDStatusReasonStart DateExpiration DateVisits RequestedVisits [id number] Review/ [facility] Summary Purpose Family History No Family History Records FoundNo Family History Records FoundNo Family History Records FoundNo Family History Records FoundNo Family History Records FoundNo Family History Records FoundNo Family History Records FoundNo Family History Records FoundNo Family History Records Found Advance Directives TypeDate RecordedPatient RepresentativeExplanationAdvance Directives and Living WillPower of AttorneyCode StatusDate ActivatedDate InactivatedCommentsFull Code 12/21/2012 12:14 PM12/24/2012 4:06 PM Advance Directive Response Recorded Date/ Time Advance Directives No August 11:18am TypeDate RecordedPatient RepresentativeExplanationACP-Advance DirectiveACP-Power of AttorneyCode StatusDate ActivatedDate InactivatedCommentsFull Code04/03/2021 8:29 AMFull Code12/21/2012 12:14 PM12/24/2012 4:06 PMTypeDate RecordedPatient RepresentativeExplanationACP-Advance DirectiveACP-Power of AttorneyCode Status Date ActivatedDate InactivatedCommentsFull Code04/03/2021 8:29 AM04/03/2021 1:01 PMFull Code12/21/2012 12:14 PM12/24/2012 4:06 PMDate ActivatedDate Inactivated Comments04/03/2021 8:29 AM04/03/2021 1:01 PMDate ActivatedDate InactivatedComments 12/21/2012 12:14 PM12/24/2012 4:06 PMDate ActivatedDate InactivatedComments 06/15/2018 3:10 PM06/24/2018 6:17 PMDate ActivatedDate InactivatedComments 04/03/2021 8:29 AM04/03/2021 1:01 PMDate ActivatedDate InactivatedComments 12/21/2012 12:14 PM12/24/2012 4:06 PMDate ActivatedDate InactivatedComments 06/15/2018 3:10 PM06/24/2018 6:17 PMCode StatusDate ActivatedDate Inactivated CommentsFull Code06/15/2018 3:10 PM06/24/2018 6:17 PMCode StatusDate ActivatedDate InactivatedCommentsFull Code06/15/2018 3:10 PM06/24/2018 6:17 PM Assessments Diagnosis Encounter for well woman exam with routine gynecological exam Chief Complaint and Reason for Visit Chief Complaint z78.0 Reason for Referral SpecialtyDiagnoses / ProceduresReferred By ContactReferred To ContactRadiology Diagnoses Abdominal wall hernia Procedures CT abdomen and pelvis without contrast Mickey Ray MD [address] [place] [address] Referral IDStatusReasonStart DateExpiration DateVisits RequestedVisits [id number] Review/[id number] / ProceduresReferred By ContactReferred To Contact Diagnoses HERMILA (obstructive sleep apnea) Procedures PSG Diagnostic Narinder Palomo MD [address] [facility], [address] [place] [address] Referral IDStatusReasonStart DateExpiration DateVisits RequestedVisits [id number] Review/ Additional Source Comments INFORMATION SOURCE (unrecogn ized section and content) DATE CREATED AUTHOR 03/27/2018 [facility] DATE CREATED AUTHOR AUTHOR'S ORGANIZ ATION 01/08/2023 [facility] DATE CREATED AUTHOR AUTHOR'S ORGANIZ ATION 03/17/2023 [facility] [employer] DATE CREATED AUTHOR AUTHOR'S ORGANIZ ATION 10/22/2023 [facility] DATE CREATED AUTHOR AUTHOR'S ORGANIZ ATION 12/13/2023 [facility] DATE CREATED AUTHOR AUTHOR'S ORGANIZ ATION 08/12/2024 [facility] DATE CREATED AUTHOR AUTHOR'S ORGANIZ ATION 01/16/2025 [facility] DATE CREATED AUTHOR AUTHOR'S ORGANIZ ATION 04/28/2025 [facility] DATE CREATED AUTHOR AUTHOR'S ORGANIZ ATION 07/15/[address] [facility] Reason for Visit (unrecogniz ed section and content) StatusReasonSpecialtyDiagnoses / ProceduresReferred By ContactReferred To Contact Diagnoses Symptoms of gastroesophageal reflux Constipation REFLUX SYMPTOMS, CONSTIPATION Procedures [place] COLONOSCOPY FLX DX W/COLLJ SPEC WHEN PFRMD [place] ESOPHAGOGASTRODUODENOSCOPY TRANSORAL DIAGNOSTIC COLONOSCOPY DIAGNOSTIC EGD ESOPHAGOGASTRODUODENOSCOPY Jairo Fisher MD [address] [facility] [address] [place] [address] [facility] SpecialtyDiagnoses / ProceduresReferred By ContactReferred To Contact Diagnoses Primary osteoarthritis of right hip Primary osteoarthritis of right hip [M16.11] Procedures [place] ARTHRP ACETBLR/PROX FEM PROSTC AGRFT/ALGRFT HIP TOTAL ARTHROPLASTY Juan Casey MD [address] [place] [address] [facility] [address] [place] [address] Referral IDStatusReasonStart DateExpiration DateVisits RequestedVisits [id number] DateCommentsMed Yjvsua8210/26/2024ReasonComments Pre-op ExamEST PT PRE OP RT HIP AND KNEE SURG, TWO DATES, DR CASEY ABN EKG SCHED W/ PTReasonOnset DateCommentscardiac tlturxkyf02/12/2025ReasonComments Follow-upEST PT F/U 1 YR L/S MSReasonCommentsNew PatientCT: 4PFT: noneSOB: noneTobacco Use: neverStarted Tobacco: n/aHx Sleep Apnea: Yes, not currently on PAP Therapy, patient states she does not want to be on PAP therapyPS02/01/2021pecialtyDiagnoses / ProceduresReferred By ContactReferred To ContactPulmonary Medicine Diagnoses Pulmonary nodule Gloria Taylor, [address] [place] [address] [facility] Pul Sleep Med [address] [place] [address] Referral IDStatusReasonStart DateExpiration DateVisits RequestedVisits [id number] Review Specialty Services Required 1ReasonOnset DateCommentsSleep Lab4PSGReasonComments HerniaABDOMINAL WALL HERNIA, REFERRED BY DR. SUHpecialtyDiagnoses / ProceduresReferred By ContactReferred To ContactGeneral Surgery Diagnoses Abdominal wall hernia Marino Wilkerson MD [address] [place] [address] Mickey Ray MD [address] [place] [address] Referral IDStatusReasonStfairfax DateExpiration DateVisits RequestedVisits [id number] Specialty Services Required [id number] IncontinenceReasonCommentsPre-op Exam EST PT PREOP CLEARANCE DR CASEY RIGHT TOTAL HIP REPLACEMENT TBD, FORM SCANNED TO [facility] [place] W/PTReasonCommentsPre-op ExamPREOP CLEARANCE GLORIA TAYLOR COLONOSCOPY 07/01/25Follow-up6 MONTHSHypertensionChest Pain Ordered Prescriptions (unrec ognized section and content) PrescriptionSigDispensedRefillsStart DateEnd Date sucralfate (CARAFATE) 1 GM/10ML suspension Take 10 mLs by mouth 4 times daily Substitute 1 g Carafate tablets and instruct patient how to create slurry at home, if financially advantageous to patient. 420 mL Scheduled Active and Recently Administ ered Medications (unrecognized section and content) Medication Order/ sodium chloride flush 0.9 % injection 5-40 [...] mL Midline or Central Line = 20 mL/lumen,Pre-procedure(GI) * 0900 (Due) * 2100 (Due) Medication Order// lactated ringers infusion Intravenous, at 125 mL/hr, CONTINUOUS, Starting on Fri04/03/21 at 0845, Pre-procedure(GI) * 0924 (New Bag - Provider: Radha Adamson APRN - INTERNAL MEDICINE PHYSICIAN) * 1002 (Stopped - Provider: AMMY Andrews CRNA) * 1035 (Stopped - Provider: Rimma Monroe RN) Medication Order// sodium chloride flush 0.9 % injection 5-40 mL 5-40 mL, Intravenous, PRN, Line Care, After every IV line use, Starting on Fri04/03/21 at 0829, ForLine Patency: Peripheral IV = 5 mL; Midline or Central Line = 10 mL/lumen. If following IV push medication, administer flush at same rate as the IV push. Flush volume is determined by type of infusion therapy being given. For non-viscous solutions use: Peripheral IV = 5 mL Midline or Central Line =10 mL/lumen For viscous solutions (i.e. blood components, parenteral nutrition, contrast media, or after obtaining blood sample) use: Peripheral IV = 10 mL Midline or Central Line = 20 mL/lumen, Pre-procedure(GI) Medication Order/// acetaminophen (TYLENOL) tablet 650 mg 650 mg, Oral, ONCE, 1 dose, On Fri10/25/24 at 0700, Maximum dose of acetaminophen is 4000 mg from all sources in 24 hours., Pre-op (day of surgery) * 0700 (Due) acetaminophen (TYLENOL) tablet 650 mg 650 mg, Oral, ONCE, 1 dose, On Fri10/25/24 at 0700, Maximum dose of acetaminophen is 4000 mg from all sources in 24 hours. 2 hours prior to surgery, Pre-op (day of surgery) * 0700 (Due) celecoxib (CELEBREX) capsule 400 mg 400 mg, Oral, ONCE, 1 dose, On Fri10/25/24 at 0700, 2 hours prior to surgery, Pre-op (day of surgery) * 0700 (Due) dimenhyDRINATE (DRAMAMINE) tablet 50 mg 50 mg, Oral, ONCE, 1 dose, On Fri10/25/24 at 0700, Pre-op (day of surgery) * 0700 (Due) famotidine (PEPCID) 20 mg in sodium chloride (PF) 0.9 % 10 mL injection 20 mg, IntraVENous, ONCE, 1 dose, On Fri10/25/24 at 0700, Administer over 2 minutes., Pre-op (day of surgery) * 0700 (Due) gabapentin (NEURONTIN) capsule 300 mg 300 mg, Oral, ONCE, 1 dose, On Fri10/25/24 at 0700, Pre-op (day of surgery) * 0700 (Due) metoclopramide (REGLAN) injection 10 mg 10 mg, IntraVENous, ONCE, 1 dose, On Fri10/25/24 at 0700, Pre-op (day of surgery) * 0700 (Due) vancomycin (VANCOCIN) 1000 mg in 200 mL IVPB 1,000 mg, IntraVENous, at 200 mL/hr, Administer over 60 Minutes, ONCE, On Fri10/25/24 at 0700, For 1 dose, Pre-op (day of surgery) * 0700 (Due) Medication Order// 0.9 % sodium chloride infusion IntraVENous, at 100 mL/hr, CONTINUOUS, Starting on Fri10/25/24 at 0700, Pre-op (day of surgery) * 0700 (Due) Care Teams (unrecognized sec tion and content) Team MemberRelationshipSpecialtyStart DateEnd Date Gloria Taylor DO [address] [place] [address] PCP - Generalmily Medicine05/09/21 MemberRelationshipSpecialtyStart DateEnd Date DerrekGloria borja DO [address] [place] [address] PCP - [facility]05/09/21 MemberRelationshipSpecialtyStart DateEnd Date DerrekGloria borja, DO [address] [place] [address] PCP - [facility]05/09/21 MemberRelationshipSpecialtyStart DateEnd Date Services, [facility] [address] [place] [facility] - [facility] Hjaumlio37/27/24Te MemberRelationshipSpecialtyStart Date End Date RoneyGloria youngblood, [address] [place] [address] PCP - [facility]05/09/21 MemberRelationshipSpecialtyStart DateEnd Date Services, [facility] [address] [place] [facility] - [facility] Bdjnrlil08/27/24 MemberRelationshipSpecialtyStart Date End Date Services, [facility] [address] [place] PCP - [facility] Wvircnmj86/27/24Te MemberRelationshipSpecialtyStart Date End Date Services, [facility] [address] [place] PCP - [facility]11/06/24Team MemberRelationshipSpecialtyStart DateEnd Date Gloria Taylor DO [address] [place] [address] PCP - GeneralFamily Medicine03/28/23Team MemberRelationshipSpecialtyStart DateEnd Date Gloria Taylor DO [address] [place] [address] PCP - GeneralFamily Medicine03/28/23Team MemberRelationshipSpecialtyStart DateEnd Date Gloria Taylor DO [address] [place] [address] PCP - Generalmily Medicine03/28/23Team MemberRelationshipSpecialtyStart DateEnd Date Gloria Taylor DO [address] [place] [address] PCP - Generalmily Medicine03/28/23Team MemberRelationshipSpecialtyStart DateEnd Date [facility] [address] [place] PCP - GeneralFamily Medicine06/16/24Team MemberRelationshipSpecialtyStart DateEnd Date Services, [facility] [address] [place] PCP - GeneralFamily Uhwwwnbk84/13/24Team MemberRelationshipSpecialtyStart Date End Date Services, [facility] [address] [place] PCP - GeneralFamily Yodqhmgg22/13/24Team MemberRelationshipSpecialtyStart Date End Date Services, [facility] [address] [place], [place] PCP - GeneralFamily Aypadjce49/13/24Team MemberRelationshipSpecialtyStart Date End Date [facility] [address] [place] PCP - GeneralFamily Yoyvwnyt53/13/24Team MemberRelationshipSpecialtyStart Date End Date [facility] [address] [place] PCP - GeneralFamily Uubydlip20/13/24Team MemberRelationshipSpecialtyStart Date End Date [facility] [address] [place] PCP - GeneralFamily Qqvtseee35/13/24Team MemberRelationshipSpecialtyStart Date End Date Gloria Taylor DO [address] [place] [address] PCP - GeneralFamily Medicine05/09/21Te MemberRelationshipSpecialtyStart DateEnd Date [facility] [address] [place] PCP - GeneralFamily Medicine02/24/25Team MemberRelationshipSpecialtyStart DateEnd Date [facility] [address] [place] PCP - GeneralFamily Medicine02/24/25Team MemberRelationshipSpecialtyStart DateEnd Date [facility] [address] [place] PCP - GeneralFamily Medicine02/24/25Team MemberRelationshipSpecialtyStart DateEnd Date Gloria Taylor DO [address] [place] [address] PCP - GeneralFamily Medicine04/29/23 FOR RECORDS PERTAINING TO PATIENTS WHO ARE [...] BE BASED ON THE PRIMARY CLINICAL RECORDS. [employer] [facility]. provides no warranty or guarantee of the accuracy or completeness of information in this document.
[2025-08-05 12:34] LABS: Glucose Urine UA 100 mg/dL (NEGATIVE)
[2025-08-05 12:44] LABS: Cast Seen? NONE SEEN #/LPF (NONE SEEN); Crystals Seen? None Seen #/HPF (None Seen); Urine Culture Indicated YES-FRMC
--- NOTE | 2025-08-05 12:49 | ED.PREGNANC1 ---
HPI - General Chief complaint: Urogenital-Female Stated complaint: VAGINAL SWELLING Time Seen by Provider: 08/05/25 12:17 Source: patient Mode of arrival: walk-in Limitations: no limitations History of Present Illness HPI Narrative: The patient 75 years old female presenting to the ER with a perineal irritation for the last few days. He mentioned that she have burning and itching at the area Denies any use of any new products in that area she also mentioned that she recently had a stress test almost 24 hours ago, Related Data Home Medications ?Medication ?Instructions ?Recorded ?Confirmed carvedilol 25 mg tablet 25 mg PO BID 10/31/23 10/04/24 lisinopril 40 mg tablet 40 mg PO DAILY 10/31/23 10/04/24 metformin 500 mg tablet 500 mg PO BID 10/31/23 10/04/24 gabapentin 300 mg capsule mg 09/24/24 dulaglutide 0.75 mg/0.5 mL 0.75 mg subcut QWEEK 10/04/24 10/04/24 [facility] Previous Rx's ?Medication ?Instructions ?Recorded celecoxib 100 mg capsule (Celebrex) 100 mg PO DAILY 10 days #10 caps 08/02/24 oxybutynin chloride 5 mg tablet 5 mg PO QD 10 days #10 tabs 08/02/24 acetaminophen 300 mg-codeine 30 mg 1 tab PO Q6H PRN pain 5 days #20 07/03/25 tablet tabs ktrueqbaji-kknfwpoeww-kcbd 1 applic topical TID PRN vaginal 08/05/25 vera-vits A,D,and E 20 %-3 % irritation #28 grams topical cream (Vagisil) clotrimazole 1 % vaginal cream 1 appful vaginal DAILY #45 grams 08/05/25 Allergies Allergy/AdvReac Type Severity Reaction Status Date / Time honey Allergy Severe Swelling Verified 08/05/25 12:06 of Lip/Tongue/Throat Penicillins Allergy Severe Swelling Verified 08/05/25 12:06 of Lip/Tongue/Throat Review of Systems ROS Status of ROS 10 or more systems reviewed and unremarkable except as noted in history and below [facility] Medical History (Updated 08/05/25 @ 12:49 by Wendie Ashby MD) Hypertension ?I10 - Essential (primary) hypertension (ICD-10) Osteoarthritis ?M19.90 - Unspecified osteoarthritis, unspecified site (ICD-10) TMJ (dislocation of temporomandibular joint) ?S03.00XA - Dislocation of jaw, unspecified side, initial encounter (ICD-10) Diabetes ?E11.9 - Type 2 diabetes mellitus without complications (ICD-10) Surgical History History of hip replacement, total ?Z96.649 - Presence of unspecified artificial hip joint (ICD-10) History of knee replacement ?Z96.659 - Presence of unspecified artificial knee joint (ICD-10) Family History Father Family history of hypertension Mother Family history of hypertension Social History Within the past year, how often did you have a drink containing alcohol: never Score interpretation: A score less than 3 is consistent with normal alcohol consumption. Smoking status: Never smoker Non-prescribed substance use: denies use Previous occupational history: retired Highest level of school completed/degree received: 10th grade Are you now , , , , never or living with a partner: Little interest or pleasure in doing things: not at all Feeling down, depressed, or hopeless: not at all Feel stressed/tense/nervous/anxious/difficulty sleeping: not at all Exam Narrative Exam Narrative: Nurses notes and vital signs reviewed and patient is not hypoxic. General: Well-appearing and in no apparent distress. Skin: Warm, dry, no pallor noted. No rash. Genital exam: Patient have erythema to the perineum that is mild no tenderness or signs of infection no open wounds or any rash no surrounding induration. The irritation is limited to the labia minora Neurological: A&O x4. No cranial nerve dysfunction observed. No truncal ataxia. Moves all extremities. Sensation intact. Psychiatric: Cooperative and interactive. Normal mood and affect. Constitutional Vital Signs, click to edit/add: Last Vital Signs Temp 98.1 F 08/05/25 12:06 Pulse 80 08/05/25 12:06 Resp 16 08/05/25 12:06 BP 150/83 H 08/05/25 12:06 Pulse Ox 97 08/05/25 12:06 O2 Del Method Room Air 08/05/25 12:06 Course Vital Signs Vital signs: Vital Signs Temperature 98.1 F 08/05/25 12:06 Pulse Rate 80 08/05/25 12:06 Respiratory Rate 16 08/05/25 12:06 Blood Pressure 150/83 H 08/05/25 12:06 Pulse Oximetry 97 08/05/25 12:06 Oxygen Delivery Method Room Air 08/05/25 12:06 Temperature 98.1 F 08/05/25 12:06 Pulse Rate 80 08/05/25 12:06 Respiratory Rate 16 08/05/25 12:06 Blood Pressure 150/83 H 08/05/25 12:06 Pulse Oximetry 97 08/05/25 12:06 Oxygen Delivery Method Room Air 08/05/25 12:06 MDM - OB/Uterine Contractions MDM Narrative Medical decision making narrative: Patient was started on clotrimazole for Anabela infection She also was provided with a moisturizer Vagisil patient presentation could be secondary to the dryness of the vaginal mucosa but also could be secondary to Anabela infection Urinalysis showed no UTI The patient to follow-up with the primary care within 2 to 3 days and to come back to the ER in case of any worsening of the current symptoms or any new symptoms or concerns Lab Data Labs: Lab Results 08/05/25 Range/Units 12:26 Urine Color Lt. yellow (YELLOW) Urine Clarity Clear (CLEAR) Urine pH 5.5 (5.0-9.0) Ur Specific Armstrong 1.020 (1.005-1.025) Urine Protein Negative (NEG/TRACE) mg/dL Urine Glucose (UA) 100 A (NEGATIVE) mg/dL Urine Ketones Negative (NEGATIVE) mg/dL Urine Occult Blood Trace-i (NEGATIVE) Urine Nitrite Negative (NEGATIVE) Urine Bilirubin Negative (NEGATIVE) Urine Urobilinogen 0.2 (0.2-1.0) EU/dL Ur Leukocyte Esterase Trace A (NEGATIVE) Urine RBC 0-2 (0-2) #/HPF Urine WBC 10-20 A (NONE SEEN) #/HPF Ur Squamous Epith Cells Few A (NONE/RARE) #/LPF Urine Crystals None seen (None Seen) #/HPF Urine Bacteria Trace A (NONE SEEN) #/HPF Urine Casts None seen (NONE SEEN) #/LPF Urine Mucus None seen (NONE SEEN) Ur Culture Indicated? Yes-[facility] [place] Discharge Plan Discharge Chief Complaint: Urogenital-Female Clinical Impression: Anabela vaginitis Patient Disposition: Home, Self-Care Time of Disposition Decision: 12:49 Condition: Good Mode of Transportation: Private Vehicle Prescriptions / Home Meds: New clotrimazole 1 % cream 1 appful vaginal DAILY Qty: 45 0RF Vagisil 20-3 % cream 1 applic topical TID PRN (Reason: vaginal irritation) Qty: 28 0RF Rx Instructions: please apply to the vaginal area No Action oxybutynin chloride 5 mg Tablet 5 mg PO QD 10 Days Qty: 10 0RF celecoxib [Celebrex] 100 mg capsule 100 mg PO DAILY 10 Days Qty: 10 0RF metformin 500 mg tablet 500 mg PO BID lisinopril 40 mg tablet 40 mg PO DAILY carvedilol 25 mg tablet 25 mg PO BID gabapentin 300 mg capsule Trulicity 0.75 mg/0.5 mL pen injector 0.75 mg subcut QWEEK acetaminophen-codeine 300-30 mg tablet 1 tab PO Q6H PRN (Reason: pain) 5 Days Qty: 20 0RF Print Language: Austrian Instructions: Yeast Infection (ED) Referrals: [facility] [Primary Care Provider, Unknown] - 1 week Discharge Date/Time: 08/05/25 13:16
== END 2025-08-05 13:16 | disposition home or self-care (01) ==
PROVIDERS: Emergency Provider Emergency Medicine
DX: B37.31 Acute candidiasis of vulva and vagina (principal); R82.998 Other abnormal findings in urine
CPT/HCPCS: 81001; 87086; 87088; 87186; 99283